=== PATIENT | male | born 1935 | race Caucasian/White ===

== ENCOUNTER 2017-04-17 05:45 | Day surgery (SDC) | payer MEDICARE, OTHER ==
[~2017-04-17] VITALS: Ht 170.2 cm; Wt 65.9 kg
[~2017-04-17 05:45] MED LIST: ADULT LOW DOSE81 MG PO; ALLOPURINOL100 MG PO; ASPIR 8181 MG PO; BROVANA15 MCG/2 M IH; BROVANA15 MCG/2 M INH; BUDESONIDE0.5 MG/2 M IH; BYSTOLIC10 MG PO; CARDIZEM CD120 MG PO; CEFPODOXIME PR200 MG PO; CENTRUM SILVER1 EAC1 PO; CENTRUM SILVER1 EAC3 PO; CLINDAMYCIN HC300 MG PO; COMBIVENT INH14.7 GM; COQ-10100 MG PO; COUMADIN1 MG PO; COUMADIN2 MG PO; COUMADIN3 MG PO; COUMADIN4 MG PO; DALIRESP500 MCG PO; DICLOFENAC SOD100 GM TOP; DILTIAZEM 24HR240 M1 PO; DUONEB 0.5 MG-33 ML IH; FISH OIL 1,0001 EAC3 PO; FISH OIL 1,2001 EAC1; GLIPIZIDE XL10 MG PO; GLIPIZIDE XL5 MG PO; HYLAND LEG CRAMPS PO; HYZAAR 100-12.1 EACH PO; INDOMETHACIN50 MG PO; IPRAT-ALBUT 0.5-3 ML INH; K-TAB ER20 MEQ PO; KLOR-CON 1010 MEQ PO; LASIX20 MG PO; LEVOFLOXACIN500 MG PO; LEVOFLOXACIN750 MG PO; LIPITOR40 MG PO; LOSARTAN POTASS50 MG PO; LOSARTAN-HCTZ1 EAC2 PO; LOVASTATIN10 MG PO; MAGNESIUM400 MG PO; METHYLPREDNISOLO4 M1 PO; MONTELUKAST SOD10 MG PO; NYSTATIN100000 UN1 PO; PERCOCET 5-3251 EACH PO; PLAVIX75 MG PO; POTASSIUM CHLO10 MEQ PO; POTASSIUM CHLO20 ME2 PO; PRAVACHOL40 MG PO; PREDNISONE20 MG PO; PROAIR RESPICL90 MCG INH; PULMICORT0.5 MG/2 M INH; PULMICORT1 MG/2 ML INH; RANITIDINE HCL150 MG PO; SINGULAIR10 MG PO; TORSEMIDE5 MG PO; VITAMIN D2000 UNIT PO; VITAMIN E400 UNI1 PO; ZOFRAN ODT4 MG SL; ZYRTEC10 M3 PO
--- NOTE | 2017-04-17 07:40 | NUR ---
MD ARRIVED TO UNIT. MD CONSULTED ABOUT ABSENCE OF NASAL SPRAY AND ABX ORDERS. MD GAVE VERBAL ORDER FOR 1GM ANCEF AND OXYMETAZOLINE NASAL SPRAY Q 15 MIN X3 TO BE STARTED NOW. ORDER PLACED IN [facility], PHARMACY CALLED TO VERIFY.
--- NOTE | 2017-04-17 08:27 | NUR ---
04/17/17 0827 Negra Pham REPORT FROM [employer]PA[employer].
--- NOTE | 2017-04-17 09:10 | NUR ---
PT RETURNED FROM PACU. REPORTING 0/10 PAIN. TOLERATING PO FLUIDS AND MAITAING O2 STAT ABOVE 95% ON ROOM AIR. AT BEDSIDE. BED RAILS UP AND CALL LIGHT WITH IN REACH.
--- NOTE | 2017-04-17 10:11 | NUR ---
PT STEADY ON FEET WITH ONE PERSON STAND BY ASSIST. PT TOLERATING PO FLUIDS AND FOOD. PT DRESSES SELF AND VOIDING WITHOUT ISSUE. DISCHARGE INSTRUCTIONS REVIEWED WITH PT AND . PT AND VERBALIZE UNDERSTANDING OF INSTRUCTIONS. QUESTIONS ANSWERED.
--- NOTE | 2017-04-17 15:10 | OR ---
[facility] [address], [place] [address] Signed DATE OF OPERATION: 04/17/2017 SURGEON: Parveen Valentine MD PREOPERATIVE DIAGNOSIS: Nasal septal perforation with right nasal polyp. POSTOPERATIVE DIAGNOSIS: Nasal septal perforation with right nasal polyp. PROCEDURE: Excision of right intranasal polyp with the placement of a septal button. ANESTHESIA: General LMA, FABIOLA Eli. PREOPERATIVE HISTORY: Mr. Miranda is an 82-year-old man with a long history of epistaxis. He has a large anterior nasal septal perforation with crusting, fresh blood, which appears to be the site of his epistaxis exam in the office endoscopically and CAT scan has shown a right middle meatal polyp. He was taken to the operating room for the above-mentioned procedures. OPERATIVE PROCEDURE AND FINDINGS: After informed consent, the patient was taken to the operating room, placed in the supine position where general LMA anesthesia was induced. The patient and procedure were verified. The patient received preoperative intranasal oxymetazoline and intravenous Ancef. Headlight speculum exam of the nasal cavity showed a fairly large anterior nasal septal perforation with crusting, dried blood in the edges. Perforation measured about 2 cm. The right middle meatus had polypoid changes. A Niyah was used to remove the polyps, which basically were attached to the anterior edge of the middle turbinate. Preop CAT scan was reviewed throughout. There was no other sinus or intranasal pathology identified. The specimen was sent to pathology in formalin. Minimal bleeding stopped afterwards. No packing placed. A septal button was then trimmed, placed in the perforation with good closure and good coverage. Reinspection showed no bleeding points. The pharynx was suctioned clear of blood and secretions. The patient was awakened, extubated, transported to recovery room in good condition. No complications. Electronically Signed By: PARVEEN VALENTINE MD 04/17/17 1510 PATIENT NAME: ONEIDA MIRANDA OPERATIVE REPORT DATE OF : 35 PHYSICIAN: PARVEEN VALENTINE MD REPORT #: [id number] REPORT IS CONFIDENTIAL AND NOT TO BE RELEASED WITHOUT AUTHORIZATION [address], [place] [address] Signed BLOOD LOSS: Minimal. SPECIMEN: Right intranasal polyp to pathology. PACKING: None. DRAINS: None. Parveen Valentine MD GC/MODL /[id number] Electronically Signed By: PARVEEN VALENTINE MD 04/17/17 1510 PATIENT NAME: ONEIDA MIRANDAN OPERATIVE REPORT DATE OF : 35 PHYSICIAN: PARVEEN VALENTINE MD REPORT #: [id number] REPORT IS CONFIDENTIAL AND NOT TO BE RELEASED WITHOUT AUTHORIZATION
== END 2017-04-17 10:20 | disposition home or self-care (01) ==
LOC: OPS 05:45 → DS 05:45 → OPS 06:45
PROVIDERS: Otolaryngology
PROC: 09HK0YZ Insertion of Other Device into Nasal Mucosa and Soft Tissue, Open Approach (ICD-10-PCS; 2017-04-17)
PROC: 09BM0ZZ Excision of Nasal Septum, Open Approach (ICD-10-PCS; principal; 2017-04-17 06:45)
DX: J33.0 Polyp of nasal cavity (principal); J34.89 Other specified disorders of nose and nasal sinuses
CPT/HCPCS: 00160; J0690; J1100; J1885; J2250; J2405; J2704; J3010; J7120

== ENCOUNTER 2017-09-25 04:58 | Inpatient (IN) | payer MEDICARE, OTHER ==
[~2017-09-25] VITALS: Ht 170.2 cm; Wt 64.2 kg
--- OUTSIDE RECORDS SUMMARY | ~2017-09-25 | XMS | Clinical Summary ---
Demographics + + + | Address | [address] | | | [place] [address] | + + + | Home Phone | | + + + | Preferred Language | Unknown | + + + | Marital Status | | + + + | Episcopalian Affiliation | Unknown | + + + | Race | Unknown | + + + | Ethnic Group | Unknown | + + + Author + + + | Author | [facility] | | | and [place] | + + + | Organization | [facility] | | | and [place] | + [...] Team Providers + +------+ + | Care Front Office Medical Assistant Name | Role | Phone | + [...] | | | + + +-------+---------+------+------+-------+ | [place]-3 Fatty | Take 1,000 mg by | [...] + + + + | Overview: CARLOSU [id number] Decision | + + +---------+---+ | C [...]
--- OUTSIDE RECORDS SUMMARY | ~2017-09-25 | XMS | Encounter Summary ---
Demographics + + + | Address | [address] | | | [place] [address] | + + + | Home Phone | | + + + | Preferred Language | Unknown | + + + | Marital Status | | + + + | Anglican Affiliation | 1013 | + + + | Race | Unknown | + + + | Ethnic Group | Unknown | + + + Author + + + | Author | [facility] | + + + | Organization | [facility] | + + + | Address | Unknown | + + + | Phone | Unavailable | + + + Support + + + + + | Name | Relationship | Address | Phone | + + + + + | Nestor Miranda | ECON | [address] | | | | | [place] | | | | | [address] | | + + + + + Care Team Providers + +------+ + | Care Taxicab Dispatcher Name | Role | Phone | + [...] + | 09/07/ | Refill | BRYAN Josephine | Jerman Geronimo, | Medication Refill | | 2018 | | Cardiology [place] | [address] | | | | | [address] | [place], | | | | | [facility] [address] | [place] [address] | | | | | [place] [address] | [phone] | | | | | [phone] | | | +--------+--------+ + + + [...] 2017 | Visit | | MD [address] | | | | | | [place], | | | | | | [place] [address] | | | | | | [phone] | | | | | | | | +--------+---------+ + + + as of this encounter Visit Diagnoses Not on filein this encounter"
--- OUTSIDE RECORDS SUMMARY | ~2017-09-25 | XMS | Encounter Summary ---
Demographics + + + | Address | [address] | | | [place] [address] | + + + | Home Phone | | + + + | Preferred Language | Unknown | + + + | Marital Status | | + + + | Adventist Affiliation | 1013 | + + + | Race | Unknown | + + + | Ethnic Group | Unknown | + + + Author + + + | Author | [facility] | + + + | Organization | [facility] | + + + | Address | Unknown | + + + | Phone | Unavailable | + + + Support + + + + + | Name | Relationship | Address | Phone | + + + + + | Nestor Miranda | ECON | [address] | | | | | [place] | | | | | [address] | | + + + + + Care Team Providers + +------+ + | Care Assembler Flexible Leads Name | Role | Phone | + [...] | | 2018 | on Only | [facility] | YAM[place]A | Maicol) | | | | [address] | | | | | | [place], [place] | | | | | | [address] | | | | | | [phone] | | | +--------+ + + + [...] | | | | | | [place] [address] | | | | | | [phone] | | | | | | | [...] + + | Blood | [facility] [address] [place] [address] | | | [address] | + + + Digoxin (07/24/2017 7:37 AM) + +---------+ + | Component | Value | Ref Range | + +---------+ + | DIGOXIN LEVEL | 0.2 (A) | 0.8 - 2.0 | + +---------+ + + + + | Specimen | Performing Laboratory | + + + | Blood | [facility] [address] [place] [address] | | | [address] | + + + TSH (07/24/2017 7:37 AM) + +-------+ + | Component | Value | Ref Range | + +-------+ + | TSH | 2.39 | 0.270 - 4.20 uIU/mL | + +-------+ + + + + | Specimen | Performing Laboratory | + + + | Blood | [facility] [address] [place] [address] | | | [address] | + + + Comprehensive metabolic panel [...] + + | Blood | [facility] [address] [place], [place] [address] | | | [address] | + + + Lipid panel (07/24/2017 [...] | + + + | Blood | [facility] [address] [place], [place] [address] | | | [address] | + + + in this encounter Visit Diagnoses Not on filein this encounter"
--- OUTSIDE RECORDS SUMMARY | ~2017-09-25 | XMS | Encounter Summary ---
Demographics + + + | Address | [address] | | | [place] [address] | + + + | Home Phone | | + + + | Preferred Language | Unknown | + + + | Marital Status | | + + + | Mosque Affiliation | 1013 | + + + | Race | Unknown | + + + | Ethnic Group | Unknown | + + + Author + + + | Author | [facility] | + + + | Organization | [facility] | + + + | Address | Unknown | + + + | Phone | Unavailable | + + + Support + + + + + | Name | Relationship | Address | Phone | + + + + + | Nestor Miranda | ECON | [address] | | | | | [place] | | | | | [address] | | + + + + + Care Team Providers + +------+ + | Care Homeowner Association Manager Name | Role | Phone | [...] | 2018 | on Only | [facility]iology [place] | [address] | | | | | [address] | | | | | | [place] | | | | | | [address] | | | | | | [phone] | | | +--------+ + + + [...] [place], | | | | | | [place] [address] | | | | | | [phone] | | | | | | | | +--------+---------+ + + + as of this encounter Visit Diagnoses Not on filein this encounter"
--- OUTSIDE RECORDS SUMMARY | ~2017-09-25 | XMS | Clinical Summary ---
Demographics + + + | Address | [address] | | | [place] [address] | + + + | Home Phone | | + + + | Preferred Language | Unknown | + + + | Marital Status | | + + + | Hindu Affiliation | Unknown | + + + | Race | White | + + + | Ethnic Group | Not or | + + + Author + + + | Author | [facility] | + + + | Organization | [facility] | + + + | Address | Unknown | + + + | Phone | Unavailable | + + + Care Team Providers + +------+ + | Care Senior Oracle Applications Developer Name | Role | Phone | + +------+ + PP | Unavailable | + +------+ + Source Comments JO[facility] is [facility] InPatient.[facility] Allergies Not on File Current Medications [...]
--- OUTSIDE RECORDS SUMMARY | ~2017-09-25 | XMS | Encounter Summary ---
Demographics + + + | Address | [address] | | | [place] [address] | + + + | Home Phone | | + + + | Preferred Language | Unknown | + + + | Marital Status | | + + + | Christian Affiliation | 1013 | + + + | Race | Unknown | + + + | Ethnic Group | Unknown | + + + Author + + + | Author | [id number] | + + + | Organization | [id number] | + + + | Address | Unknown | + + + | Phone | Unavailable | + + + Support + + + + + | Name | Relationship | Address | Phone | + + + + + | Nestor Miranda | ECON | [address] | | | | | [place] | | | | | [address] | | + + + + + Care Team Providers + +------+ + | Care Volunteer Manager Name | Role | Phone | [...] MD Rika [address] | [place] | | | | [address] | [place], | [place] | | | | [address] | [place] [address] | heart with stable | | | | [place] [address] | [phone] | angina pectoris | | | | [phone] | | ([facility]LY [facility]) (Primary Dx); | | | | | | S/P PTCA | | | | | | (percutaneous | | | | | | transluminal | | | | | | coronary | | | | | | angioplasty); | | | | | | 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 | | | | | | ([facility]); Chronic | | | | | | atrial fibrillation | | | | | | ([facility]); PVD | | | | | | (peripheral vascular | | | | | | disease) ([facility]); | | | | | | Moderate [...] time. I will see him back in [address] [place] [address] for follow-up. 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 He has [...] rate. There were rare PVCs -- Echo (09/27/15-[facility]): moderate global hypokinesis, EF35-40%, marked LAE [...] noted on his abdominal CT scan at [place]. GENITOURINARY: Mild chronic kidney disease, with evidence [...] CHADS2 VASc 4 CHF (congestive heart failure) ([facility]) Chronic kidney disease Mild, although renal cortical thinning is noted on an abdominal CT COPD (chronic obstructive pulmonary disease) ([facility]) Asthma and emphysema Coronary artery disease multivessel [...] today for follow-up. Coronary artery disease [place] heart with stable angina pectoris (HCC) S/P PTCA (percutaneous transluminal coronary angioplasty) Dilated cardiomyopathy (HCC) Chronic atrial fibrillation ([facility]) PVD (peripheral vascular disease) ([facility]) Moderate to severe mitral regurgitation Epistaxis, recurrent [...] | | | | | | [place] [address] | | | | | | [phone] | | | | | | | | +--------+---------+ + + + as of this encounter Results ECHO outside interpretation standard (08/03/2017 10:52 AM) + + + | Specimen | Performing Laboratory | + + + | | [address] [address] | + + + + + | [...] from the previous | | study. 4. Bsylzwrg-bu-hrgicb mitral regurgitation is present, predominately an | [...] enlarged, unchanged from the previous study. 4. Leyrmpbi-fi-ogjsex | | mitral regurgitation is present, predominately [...] to be m | | Mitral Valve: yasospc-cw-xsuejn mitral regurgitation, predominately an eccentric, | | [...] mmHg TR Vmax: | | 2.80 m/s Pickle Sorter: Authenticated by: Jerman Geronimo Report Date/Time: | | 08-03-2017 11:33:16 | + + + + | Procedure Note | + + | Ross Newell Results In - 08/03/2017 11:40 AM PST Patient Name: Phill Miranda of | | : 5Accession: [id number] Physician: Jerman M. | | Lehr INDICATIONS [...] | enlarged, unchanged from the previous study.4. Hvtdipmk-ot-jwstok mitral regurgitation | | is present, predominately [...] to be m Mitral | | Valve: tdkucct-hm-fnkbvk mitral regurgitation, predominately an eccentric, posteriorly | [...] cmLVPWd: 0.95 | | cmLVOT Area: 3.71 eg0GSFW Diam: 2.17 cm%FS: 17.23 %EF(Teich): 35.78 | [...] (A-L): 43.22 ml/m2LAAs A2C: 23.19 | | tb3SYTXV A-L A2C: 80.31 mlLALs A2C: 5.68 cmLAAs A4C: 21.60 wq6JAUNJ A-L A4C: | | 70.83 mlLALs A4C: 5.59 cmRAAs: 22.56 qm2FBIMR A-L: 73.39 mlRAESV MOD: 70.66 | | mlRALs: 5.88 cmTAPSE: 2.28 cmAV maxP.18 mmHgAV meanP.07 mmHgAV Vmax: | | 1.23 m/Judson Vmean: 0.82 m/Judson VTI: 19.35 cmAVA Vmax: 1.98 cm2AVA (VTI): 1.93 | | rt7CXTW Vmax: 0.00 cm2/m2AVAI (VTI): 0.00 cm2/m2LVOT maxP.75 mmHgLVOT meanPG: | | 0.93 mmHgLVSI Dopp: 21.26 ml/m2LVSV Dopp: 37.42 mlLVOT Vmax: 0.66 m/sLVOT Vmean: | | 0.45 m/sLVOT VTI: 10.06 cmMV A Herrera: 0.04 m/sMV DecT: 167.58 msMV E Herrera: 0.77 | | m/sMV E/A Ratio: 18 MV PHT: 48.60 msMVA By PHT: 4.52 it3Xdxqyo e': 0.06 | | m/sSeptal E/e': 12.48 [...] unchanged from the previous study.4. | | Etmrmxqz-og-jtzfec mitral regurgitation is present, predominately an eccentric, [...] |TR Vmax: 2.80 m/s | | | |Pickle Sorter: | |Authenticated by: Jerman Geronimo | |Report [...] unchanged from the previous study. | |4. Rgabghzq-mf-vkgsge mitral regurgitation is present, predominately an eccentric, posterio rly directed jet, unchanged from the previous study. | |5. There is borderline pulmonary hypertension, unchanged from the previous study. | + + in this encounter Visit Diagnoses + + | Diagnosis | + + | Coronary artery disease of [place] artery [place] heart with stable angina pectoris | | [...]
--- OUTSIDE RECORDS SUMMARY | ~2017-09-25 | XMS | Encounter Summary ---
Demographics + + + | Address | [address] | | | [place] [address] | + + + | Home Phone | | + + + | Preferred Language | Unknown | + + + | Marital Status | | + + + | Samaritan Affiliation | 1013 | + + + | Race | Unknown | + + + | Ethnic Group | Unknown | + + + Author + + + | Author | [facility] | + + + | Organization | [facility] | + + + | Address | Unknown | + + + | Phone | Unavailable | + + + Support + + + + + | Name | Relationship | Address | Phone | + + + + + | Nestor Miranda | ECON | [address] | | | | | [place] | | | | | [address] | | + + + + + Care Team Providers + +------+ + | Care Screening Representative Name | Role | Phone | + +------+ + | Aaron Schawrz DO | PCP | | + +------+ + Reason for Visit +--------+ + | Reason | Comments | +--------+ + | Other | Patients home diary, medications, bp | +--------+ + Encounter Details +--------+ + + + + | Date | Type | Department | Care Team | Description | +--------+ + + + + | 08/21/ | Documentati | [facility] [place] | Quita Hernandez, | Other (Patients home | | 2018 | on Only | Cardiology Deputy | [facility] | diary, medications, | | | | [address] | | bp) | | | | [place] | | | | | | [address] | | | | | | [phone] | | | +--------+ + + + [...] | | | | | | [place] [address] | | | | | | [phone] | | | | | | | | +--------+---------+ + + + as of this encounter Visit Diagnoses Not on filein this encounter"
--- OUTSIDE RECORDS SUMMARY | ~2017-09-25 | XMS | Encounter Summary ---
Demographics + + + | Address | [address] | | | [place] [address] | + + + | Home Phone [...] + | Author | [facility] | + + + | Organization | [facility] | + + + | Address | Unknown | + + + | Phone | Unavailable | + + + Support + + + + + | Name | Relationship | Address | Phone | + + + + + | Nestor Miranda | ECON | [address] | | | | | [place] | | | | | [address] | | + + + + + Care Team Providers + +------+ + | Care Net Ui Developer Name | Role | Phone | [...] | NIYAH [address] | disease [place] | | | | [address] | Nadine Perez F | artery of [place] | | | | [address] | [place] [address] | heart with stable | | | | [place] [address] | [phone] | angina pectoris | | | | [phone] | | ([facility]) (Primary Dx); | | | | | | S/P PTCA | | | | | | (percutaneous | | | | | | transluminal | | | | | | coronary | | | | | | angioplasty); | | | | | | 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 | | | | | | ([facility]); Chronic | | | | | | atrial fibrillation | | | | | | ([facility]); Moderate to | | | | | | severe mitral | | | | | | regurgitation; | | | | | | 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 ([facility]); PVD | | | | | | (peripheral vascular | | | | | | disease) ([facility]); | | | | | | Chronic obstructive | | | | | | pulmonary disease, | | | | | | unspecified COPD | | | | | | type ([facility]) | +--------+---------+ + + + Social History [...] on warfarin for his atrial fibrillation with [id number] VASC of 4 and Plavix for sten [...] He reports he continues to walk in [employer] 3-4 times per week and now able [...] illicit drug use. Exercises with walking in [employer] 2-3 time s per week, can go 2-3 times around the store and tolerates. . Lives in [place]. Outpatient Medications Prior to Visit Medication Sig [...] No results found for: METF, NMETFX, TFNMFX, JPYOYFB30BBM, BIQNLI52VWV, TOTEPI IMAGING /PROCEDURES ; Last Lexiscan Cardiolite [...] Peak/mean gradient across the valve is 6.18mmHg/3.08mmHg. [facility] ral valve normal, stable moderate [...] HTN, RVSP 36.9 mm Hg Echo (09/27/15-[facility]): moderate global hypokinesis, EF 35-40%, [...] Dr. Harman. 1. Coronary artery disease of [place] artery [place] heart with stable angina pectoris ([facility]) [...] past surgical history. Problem list. NIYAH [facility] 08/21/2017in this encounter Plan of Treatment +--------+---------+ + + + | Date | Type | Specialty | Care Team | Description | +--------+---------+ + + + | 10/23/ | Office | Cardiology | Jerman Geronimo, | | | 2017 | Visit | | MD [address] | | | | | | [place], | | | | | | [place] [address] | | | | | | [phone] | | | | | | | | +--------+---------+ + + + + +--------+ + + | Name | Priori | Associated Diagnoses | Order Schedule | | | ty | | | + +--------+ + + | Comprehensive metabolic panel | Routin | Coronary artery | Expected: | | | e | disease of [place] | 10/08/2017, Expires: | | | | artery [place] | 08/20/2018 | | | | heart with stable | | | | | angina pectoris | | | | | ([facility]) S/P PTCA | | | | | (percutaneous | | | | | transluminal | | | | | coronary | | | | | angioplasty) | | | | | Dilated | | | | | cardiomyopathy ([facility]) | | | | | Chronic atrial | | | | | fibrillation ([facility]) | | | | | 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 | | | | | failure ([facility]) Type | | | | | 2 diabetes mellitus | | | | | without | | | | | complication, | | | | | without long-term | | | | | current use of | | | | | insulin ([facility]) | | + +--------+ + + | Lipid panel | Routin | Coronary artery | Expected: | | | e | disease of [place] | 10/08/2017, Expires: | | | | artery [place] | 08/20/2018 | | | | heart with stable | | | | | angina pectoris | | | | | ([facility]) S/P PTCA | | | | | [...] + + + + | Calculated R [place] | 94 | degrees | + + + + | Calculated T [place] | -66 | degrees | + + + + | Diagnosis | Please refer to Providers office visit note | | | | for Providers Interpretation.Confirmed by | | | | ICA Michie Read Only, NIKOLAS Mccoy ([id number]), | | | | editor at large Johnson Kimble ([id number]) on 08/20/2017 | | | | 10:36:28 AM | | + + + + + + + | Specimen | Performing Laboratory | + + + | | [facility] [place] [address] | + + + in this encounter Visit Diagnoses + + | Diagnosis | + + | Coronary artery disease of [place] artery [place] heart with stable angina pectoris | | [...]
--- OUTSIDE RECORDS SUMMARY | ~2017-09-25 | XMS | Encounter Summary ---
Demographics + + + | Address | [address] | | | [place] [address] | + + + | Home Phone | | + + + | Preferred Language | Unknown | + + + | Marital Status | | + + + | Judaism Affiliation | 1013 | + + + | Race | Unknown | + + + | Ethnic Group | Unknown | + + + Author + + + | Author | [facility] [employer] [facility] | + + + | Organization | [facility] | + + + | Address | Unknown | + + + | Phone | Unavailable | + + + Support + + + + + | Name | Relationship | Address | Phone | + + + + + | Nestor Miranda | ECON | [address] | | | | | [place] | | | | | [address] | | + + + + + Care Team Providers + +------+ + | Care Crimping Machine Operator Name | Role | Phone [...] | | | | | | [place] | | | | | | [address] | | | | | | [phone] | | | +--------+ + + + [...] [place], | | | | | | [place] [address] | | | | | | [phone] | | | | | | | | +--------+---------+ + + + as of this encounter Visit Diagnoses Not on filein this encounter"
--- OUTSIDE RECORDS SUMMARY | ~2017-09-25 | XMS | Encounter Summary ---
Demographics + + + | Address | [address] | | | [place] [address] | + + + | Home Phone | | + + + | Preferred Language | Unknown | + + + | Marital Status | | + + + | Cheondoism Affiliation | 1013 | + + + | Race | Unknown | + + + | Ethnic Group | Unknown | + + + Author + + + | Author | [facility] | + + + | Organization | [facility] | + + + | Address | Unknown | + + + | Phone | Unavailable | + + + Support + + + + + | Name | Relationship | Address | Phone | + + + + + | Nestor Miranda | ECON | [address] | | | | | [place] | | | | | [address] | | + + + + + Care Team Providers + +------+ + | Care Shake Splitter Name | Role | Phone | + [...] Maldonado | | | | | Miah [facility] [address] | [place] [address] | | | | | [place] [address] | [phone] | | | | | [phone] | | | +--------+ + + + [...] | | | | | | [place] [address] | | | | | | [phone] | | | | | | | | +--------+---------+ + + + as of this encounter Visit Diagnoses Not on filein this encounter"
--- OUTSIDE RECORDS SUMMARY | ~2017-09-25 | XMS | Encounter Summary ---
Demographics + + + | Address | [address] | | | [place] [address] | + + + | Home Phone | | + + + | Preferred Language | Unknown | + + + | Marital Status | | + + + | Hindu Affiliation | 1013 | + + + | Race | Unknown | + + + | Ethnic Group | Unknown | + + + Author + + + | Author | [facility] | + + + | Organization | [facility] | + + + | Address | Unknown | + + + | Phone | Unavailable | + + + Support + + + + + | Name | Relationship | Address | Phone | + + + + + | Nestor Miranda | ECON | [address] | | | | | [place] | | | | | [address] | | + + + + + Care Team Providers + +------+ + | Care Human Resources Coordinator Name | Role | Phone | + [...] | Procedure | ECHO | MD [address]ika [address] | cardiomyopathy | | | | | [place], | ([facility]); Chronic | | | | | [place] [address] | atrial fibrillation | | | | | [phone] | ([facility]); Moderate to | | | | | [...] [place], | | | | | | [place] [address] | | | | | | [phone] | | | | | | | [...] Laboratory | + + + | | [address] [address] | + + + + + | [...] from the previous | | study. 4. Qbksbjxv-wb-eddiqg mitral regurgitation is present, predominately an | [...] enlarged, unchanged from the previous study. 4. Elbunzzp-fi-zjlrzi | | mitral regurgitation is present, predominately [...] to be m | | Mitral Valve: hzerhnt-uh-rncvkq mitral regurgitation, predominately an eccentric, | | [...] mmHg TR Vmax: | | 2.80 m/s Claims Vice President: Authenticated by: Jerman Geronimo Report Date/Time: | | 08-03-2017 11:33:16 | + + + + | Procedure Note | + + | Reece, Rad Results In - 08/03/2017 11:40 AM PST Patient Name: Phill Miranda of | | : 5Accession: [id number] Physician: Jerman Prasad | | Lehr INDICATIONS [...] | enlarged, unchanged from the previous study.4. Oszgueah-mm-pjtpot mitral regurgitation | | is present, predominately [...] to be m Mitral | | Valve: pojfxyk-ji-rwpdav mitral regurgitation, predominately an eccentric, posteriorly | [...] cmLVPWd: 0.95 | | cmLVOT Area: 3.71 mp1ZXZK Diam: 2.17 cm%FS: 17.23 %EF(Teich): 35.78 | [...] (A-L): 43.22 ml/m2LAAs A2C: 23.19 | | un2DYHGD A-L A2C: 80.31 mlLALs A2C: 5.68 cmLAAs A4C: 21.60 ed4MYFTB A-L A4C: | | 70.83 mlLALs A4C: 5.59 cmRAAs: 22.56 gi5DRCSD A-L: 73.39 mlRAESV MOD: 70.66 | | mlRALs: 5.88 cmTAPSE: 2.28 cmAV maxP.18 mmHgAV meanP.07 mmHgAV Vmax: | | 1.23 m/Judson Vmean: 0.82 m/Judson VTI: 19.35 cmAVA Vmax: 1.98 cm2AVA (VTI): 1.93 | | ev9RUDA Vmax: 0.00 cm2/m2AVAI (VTI): 0.00 cm2/m2LVOT maxP.75 mmHgLVOT meanPG: | | 0.93 mmHgLVSI Dopp: 21.26 ml/m2LVSV Dopp: 37.42 mlLVOT Vmax: 0.66 m/sLVOT Vmean: | | 0.45 m/sLVOT VTI: 10.06 cmMV A Herrera: 0.04 m/sMV DecT: 167.58 msMV E Herrera: 0.77 | | m/sMV E/A Ratio: 18 MV PHT: 48.60 msMVA By PHT: 4.52 df4Kpaqdg e': 0.06 | | m/sSeptal E/e': 12.48 [...] unchanged from the previous study.4. | | Rxgwyamv-xm-jrrrii mitral regurgitation is present, predominately an eccentric, [...] |TR Vmax: 2.80 m/s | | | |Claims Vice President: | |Authenticated by: Jerman Geronimo | |Report [...] unchanged from the previous study. | |4. Eugplbhf-eu-ebdvuh mitral regurgitation is present, predominately an eccentric, [...]
--- OUTSIDE RECORDS SUMMARY | ~2017-09-25 | XMS | Encounter Summary ---
Demographics + + + | Address | [address] | | | [place] [address] | + + + | Home Phone [...] | Author | [facility] [employer] [facility] | + + + | Organization | [facility] [employer] [facility] | + + + | Address | Unknown | + + + | Phone | Unavailable | + + + Support + + + + + | Name | Relationship | Address | Phone | + + + + + | Nestor Miranda | ECON | [address] | | | | | [place] | | | | | [address] | | + + + + + Care Team Providers + +------+ + | Care Discharge Specialist Name | Role | Phone | [...] | | | [place] | [place] [address] | | | | | [address] | [phone] | | | | | [phone] | | | +--------+ + + + [...] [place], | | | | | | [place] [address] | | | | | | [phone] | | | | | | | | +--------+---------+ + + + as of this encounter Visit Diagnoses Not on filein this encounter"
--- OUTSIDE RECORDS SUMMARY | ~2017-09-25 | XMS | Encounter Summary ---
Demographics + + + | Address | [address] | | | [place] [address] | + + + | Home Phone | | + + + | Preferred Language | Unknown | + + + | Marital Status | | + + + | Hoahaoism Affiliation | 1013 | + + + | Race | Unknown | + + + | Ethnic Group | Unknown | + + + Author + + + | Author | [facility] | + + + | Organization | [facility] | + + + | Address | Unknown | + + + | Phone | Unavailable | + + + Support + + + + + | Name | Relationship | Address | Phone | + + + + + | Nestor Miranda | ECON | [address] | | | | | [place] | | | | | [address] | | + + + + + Care Team Providers + +------+ + | Care Herbicide Sprayer Name | Role | Phone | + +------+ + | Aaron Schwarz DO | PCP | | + +------+ + Encounter Details +--------+ + + + + | Date | Type | Department | Care Team | Description | +--------+ + + + + | 07/30/ | Telephone | [facility] Shandon | Krystle Baez MA | | | 2017 | | Cardiology [place] | | | | | | [address] | | | | | | [place] | | | | | | [address] | | | | | | [phone] | | | +--------+ + + + [...] | | | | | | [place] [address] | | | | | | [phone] | | | | | | | | +--------+---------+ + + + as of this encounter Visit Diagnoses Not on filein this encounter"
--- OUTSIDE RECORDS SUMMARY | ~2017-09-25 | XMS | Encounter Summary ---
Demographics + + + | Address | [address] | | | [place] [address] | + + + | Home Phone [...] + | Author | [facility] [employer] [facility] | + + + | Organization | [facility] [facility] | + + + | Address | Unknown | + + + | Phone | Unavailable | + + + Support + + + + + | Name | Relationship | Address | Phone | + + + + + | eNstor Miranda | ECON | [address] | | | | | [place] | | | | | [address] | | + + + + + Care Team Providers + +------+ + | Care Leadership Recruiter Name | Role | Phone | + +------+ + | Aaron Schwarz DO | PCP | | + +------+ + Encounter Details +--------+ + + + + | Date | Type | Department | Care Team | Description | +--------+ + + + + | 07/19/ | Telephone | [facility]bury | Krystle Baez MA | | | 2017 | | Cardiology [place] | | | | | | [address] | | | | | | [place] | | | | | | [address] | | | | | | [phone] | | | +--------+ + + + [...] | | | | | | [place] [address] | | | | | | [phone] | | | | | | | | +--------+---------+ + + + as of this encounter Visit Diagnoses Not on filein this encounter"
--- OUTSIDE RECORDS SUMMARY | ~2017-09-25 | XMS | Encounter Summary ---
Demographics + + + | Address | [address] | | | [place] [address] | + + + | Home Phone | | + + + | Preferred Language | Unknown | + + + | Marital Status | | + + + | Uatsdin Affiliation | 1013 | + + + | Race | Unknown | + + + | Ethnic Group | Unknown | + + + Author + + + | Author | [facility] | + + + | Organization | [facility] | + + + | Address | Unknown | + + + | Phone | Unavailable | + + + Support + + + + + | Name | Relationship | Address | Phone | + + + + + | Nestor Miranda | ECON | [address] | | | | | [place] | | | | | [address] | | + + + + + Care Team Providers + +------+ + | Care Sampling Theory Teacher Name | Role | Phone | + [...] + | 02// | Office | BRYAN Lanse | Tiffani Reyna | Coronary artery | | 2018 | Visit | [facility] [place] | NIYAH Sarkar [address] | disease of alutiiq | | | | [address] | Nadine Perez F | artery of alutiiq | | | | [address] | [place] [address] | heart with stable | | | | [place] [address] | [phone] | angina pectoris | | | | [phone] | | ([facility]) (Primary Dx); | | | | | | S/P PTCA | | | | | | (percutaneous | | | | | | transluminal | | | | | | coronary | | | | | | angioplasty); | | | | | | 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 | | | | | | ([facility]); Chronic | | | | | | atrial fibrillation | | | | | | ([facility]); Moderate to | | | | | | severe mitral | | | | | | regurgitation; | | | | | | 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 ([facility]); PVD | | | | | | (peripheral vascular | | | | | | disease) ([facility]); | | | | | | Chronic obstructive | | | | | | pulmonary disease, | | | | | | unspecified COPD | | | | | | type ([facility]) | +--------+---------+ + + + [...] you fasting labs to be done at [facility] I have added Digoxin 125 mcg [...] here today for urgent follow-up at the [facility] of Dr. Geronimo for reports of [...] on warfarin for his atrial fibrillation with [id number] VASC of 4 and Plavix for chris [...] reports that he tries to walk in [place] 3-4 times per week and come walk [...] illicit drug use. Exercises with walking in [place] 2-3 time s per week, can go to times around the store and tolerates. . Lives in [place]. Outpatient Medications Prior to Visit Medication Sig [...] No results found for: METF, NMETFX, TFNMFX, [id number], [id number], TOTEPI IMAGING /PROCEDURES ; Last Lexiscan Cardiolite [...] pulmonary HTN, RVSP 36.9 mm Hg Echo (09/27/15-[facility]): moderate global hypokinesis, EF 35-40%, marked LAE, [...] barbara spears. 1. 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 S/P PTCA (percutaneous transluminal coronary angioplasty) 3. Dilated cardiomyopathy (HCC) 4. Chronic atrial fibrillation ([facility]) 5. Moderate to severe mitral regurgitation 6. Chronic combined systolic and diastolic heart failure ([facility]) 7. PVD (peripheral vascular disease) ([facility]) 8. Chronic obstructive pulmonary disease, unspecified COPD type ([facility]) 9. Type 2 diabetes mellitus without complication, without long-term current use of insulin ([facility]) 10. Mixed hyperlipidemia 11. Encounter [...] past surgical history. Problem list. NIYAH Epstein [facility] Cardiology 07/23/2017in this encounter Plan of Treatment +--------+---------+ + + + | Date | Type | Specialty | Care Team | Description | +--------+---------+ + + + | 10/23/ | Office | Cardiology | Jerman Geronimo, | | | 2017 | Visit | | [address] | | | | | | [place], | | | | | | [place] [address] | | | | | | [phone] | | | | | | | | +--------+---------+ + + + + +--------+ + + | Name | Priori | Associated Diagnoses | Order Schedule | | | ty | | | + +--------+ + + | Digoxin level | Routin | Coronary artery | Expected: | | | e | disease of alutiiq | 07/23/2017, Expires: | | | | artery of alutiiq | 07/23/2018 | | | | heart with stable | | | | | angina pectoris | | | | | ([facility]) S/P PTCA | | | | | (percutaneous | | | | | transluminal | | | | | coronary | | | | | angioplasty) | | | | | Chronic atrial | | | | | fibrillation ([facility]) | | | | | Encounter for | | | | | monitoring digoxin | | | | | therapy | | + +--------+ + + | CBC W/Auto Diff (Reflex to | Routin | Chronic atrial | Expected: | | Manual) | e | fibrillation ([facility]) | 07/23/2017, Expires: | | [...] + + + + | Calculated R [place] | 89 | degrees | + + + + | Calculated T [place] | -38 | degrees | + + + + | Diagnosis | Please refer to Providers office visit note | | | | for Providers Interpretation.Confirmed by | | | | [facility] [place] [facility], NIKOLAS Mccoy ([id number]), | | | | editor city Johnson Kimble ([id number]) on 07/23/2017 | | | | 3:38:03 PM | | + + + + + + + | Specimen | Performing Laboratory | + + + | | [facility] [address] [place] [address] | + + + in this encounter Visit Diagnoses + + | Diagnosis | + + | 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 | | (HCC) - Primary | + + | S/P PTCA (percutaneous transluminal coronary angioplasty) | + + | Postsurgical percutaneous transluminal coronary angioplasty status | + + | Dilated cardiomyopathy ([facility]) | + + | Other primary cardiomyopathies | + + | Chronic atrial fibrillation (HCC) | + + | Atrial fibrillation | + + | Moderate to severe mitral regurgitation | + + | Chronic combined systolic and diastolic heart failure (HCC) | + + | Chronic combined systolic and diastolic heart failure | + + | PVD (peripheral vascular disease) ([facility]) | + + | Peripheral [...]
--- OUTSIDE RECORDS SUMMARY | ~2017-09-25 | XMS | Encounter Summary ---
Demographics + + + | Address | [address] | | | [place] [address] | + + + | Home Phone [...] + + + | Author | [facility] | + + + | Organization | [facility] | + + + | Address | Unknown | + + + | Phone | Unavailable | + + + Support + + + + + | Name | Relationship | Address | Phone | + + + + + | Nestor Miranda | ECON | [address] | | | | | [place] | | | | | [address] | | + + + + + Care Team Providers + +------+ + | Care Mortuary Technician Name | Role | Phone | [...] + | 08/13/ | Documentati | BRYAN Sherwood | Quita Hernandez, | Labs Only | | 2018 | on Only | [facility] [place] | PROGRAMMER | ([address]ie | | | | [address] | | 07/24/2017) | | | | [place] | | | | | | [address] | | | | | | [phone] | | | +--------+ + + + [...] | | | | | | [place] [address] | | | | | | [phone] | | | | | | | | +--------+---------+ + + + as of this encounter Visit Diagnoses Not on filein this encounter"
--- OUTSIDE RECORDS SUMMARY | ~2017-09-25 | XMS | Clinical Summary ---
Demographics + + + | Address | [address] | | | [place] [address] | + + + | Home Phone | | + + + | Preferred Language | Unknown | + + + | Marital Status | | + + + | Caodaism Affiliation | 1013 | + + + | Race | Unknown | + + + | Ethnic Group | Unknown | + + + Author + + + | Author | [facility] | + + + | Organization | [facility] | + + + | Address | Unknown | + + + | Phone | Unavailable | + + + Support + + + + + | Name | Relationship | Address | Phone | + + + + + | Nestor Yanez | ECON | [address] | | | | | [place] | | | | | [address] | | + + + + + Care Team Providers + +------+ + | Care Wood Buffer Name | Role | Phone | + [...] | 2018 | on Only | | BELLOWS TESTER | diary, medications, | | | | | | bp) | +--------+ + + + + | 08/20/ | Office | | Tiffani Reyna | 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 | | | | | | ([facility]) (Primary Dx); | | | | | | S/P PTCA | | | | | | (percutaneous | | | | | | transluminal | | | | | | coronary | | | | | | angioplasty); | | | | | | 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 | | | | | | ([facility]); Chronic | | | | | | atrial fibrillation | | | | | | ([facility]); Moderate to | | | | | | severe mitral | | | | | | regurgitation; | | | | | | 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 | | | | | | ([facility]); Chronic | | | | | | atrial fibrillation | | | | | | ([facility]); Moderate to | | | | | | severe mitral | | | | | | regurgitation; | | | | | | 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 ([facility]); PVD | | | | | | (peripheral vascular | | | | | | disease) ([facility]); | | | | | | Chronic obstructive | | | | | | pulmonary disease, | | | | | | unspecified COPD | | | | | | type ([facility]) | +--------+ + + + + | 07/19/ | Telephone | | Krystle Baez MA | | | 2017 | | | | | +--------+ + + + + | 07/10/ | Office | | Jerman Geronimo, | 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 | | MD | 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 | | | | | | ([facility]) (Primary Dx); | | | | | | S/P PTCA | | | | | | (percutaneous | | | | | | transluminal | | | | | | coronary | | | | | | angioplasty); | | | | | | 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 | | | | | | ([facility]); Chronic | | | | | | atrial fibrillation | | | | | | ([facility]); PVD | | | | | | (peripheral vascular | | | | | | disease) ([facility]); | | | | | | [...] [place], | | | | | | [place] [address] | | | | | | [phone] | | | | | | | [...] | | | MEDICAL | | | /[id number] | | on 07/28/2016 by Guerita, | | | PRODUCTS | | | 409 | | MD Kellie | | | | | | | + +-------+-------+ +--------+--------+--------+ | Promus Premier Stent 2.75 X | Stent | Heart | [place] | | | / | | 28-07/28/2016Implanted: Qty: 1 | | | MEDICAL | | | /[id number] | | on 07/28/2016 by Guerita, | [...] + + + + | Calculated R [place] | 94 | degrees | + + + + | Calculated T [place] | -66 | degrees | + + + + | Diagnosis | Please refer to Providers office visit note | | | | for Providers Interpretation.Confirmed by | | | | [facility] [place] [facility], NIKOLAS Mccoy ([id number]), | | | | editorial director Johnson Kimble ([id number]) on 08/20/2017 | | | | 10:36:28 AM | | + + + + + + + | Specimen | Performing Laboratory | + + + | | [facility] [address] [place] [address] | + + + ECHO outside interpretation standard (08/03/2017 10:52 AM) + + + | Specimen | Performing Laboratory | + + + | | [address] [place] [address] | + + + + + | [...] from the previous | | study. 4. Izaaytcd-uk-zaqxyb mitral regurgitation is present, predominately an | [...] enlarged, unchanged from the previous study. 4. Rypzbbpy-cf-vuoitn | | mitral regurgitation is present, predominately [...] to be m | | Mitral Valve: xukosru-mz-jxoolp mitral regurgitation, predominately an eccentric, | | [...] mmHg TR Vmax: | | 2.80 m/s Oceanographic Meteorologist: Authenticated by: Jerman Geronimo Report Date/Time: | | 08-03-2017 11:33:16 | + + + + | Procedure Note | + + | Reece, Rad Results In - 08/03/2017 11:40 AM PST Patient Name: Phill Yanez of | | : 5Accession: [id number] Physician: Jerman Prasad | | [place] INDICATIONS [...] | enlarged, unchanged from the previous study.4. Gnlfcuni-mw-xqjjiz mitral regurgitation | | is present, predominately [...] to be m Mitral | | Valve: nlfzvuu-vj-nsoohz mitral regurgitation, predominately an eccentric, posteriorly | [...] cmLVPWd: 0.95 | | cmLVOT Area: 3.71 xa2FBVC Diam: 2.17 cm%FS: 17.23 %EF(Teich): 35.78 | [...] (A-L): 43.22 ml/m2LAAs A2C: 23.19 | | ul4WMGKO A-L A2C: 80.31 mlLALs A2C: 5.68 cmLAAs A4C: 21.60 bd0FUACM A-L A4C: | | 70.83 mlLALs A4C: 5.59 cmRAAs: 22.56 im5FXGKF A-L: 73.39 mlRAESV MOD: 70.66 | | mlRALs: 5.88 cmTAPSE: 2.28 cmAV maxP.18 mmHgAV meanP.07 mmHgAV Vmax: | | 1.23 m/Judson Vmean: 0.82 m/Judson VTI: 19.35 cmAVA Vmax: 1.98 cm2AVA (VTI): 1.93 | | eg6HKAG Vmax: 0.00 cm2/m2AVAI (VTI): 0.00 cm2/m2LVOT maxP.75 mmHgLVOT meanPG: | | 0.93 mmHgLVSI Dopp: 21.26 ml/m2LVSV Dopp: 37.42 mlLVOT Vmax: 0.66 m/sLVOT Vmean: | | 0.45 m/sLVOT VTI: 10.06 cmMV A Herrera: 0.04 m/sMV DecT: 167.58 msMV E Herrera: 0.77 | | m/sMV E/A Ratio: 18 MV PHT: 48.60 msMVA By PHT: 4.52 wn5Cqpbdc e': 0.06 | | m/sSeptal E/e': 12.48 [...] unchanged from the previous study.4. | | Wnbvpvbv-xe-cqlxhk mitral regurgitation is present, predominately an eccentric, [...] |TR Vmax: 2.80 m/s | | | |Oceanographic Meteorologist: | |Authenticated by: Jerman Geronimo | |Report [...] unchanged from the previous study. | |4. Zwohawiq-py-gzrgzn mitral regurgitation is present, predominately an eccentric, [...] + + | Blood | [facility] [address] [place] [address] | | | [phone] | + + + TSH (07/24/2017 7:37 AM) + +-------+ + | Component | Value | Ref Range | + +-------+ + | TSH | 2.39 | 0.270 - 4.20 uIU/mL | + +-------+ + + + + | Specimen | Performing Laboratory | + + + | Blood | [facility] [address] | | | [address] | + + + Digoxin (07/24/2017 7:37 AM) + +---------+ + | Component | Value | Ref Range | + +---------+ + | DIGOXIN LEVEL | 0.2 (A) | 0.8 - 2.0 | + +---------+ + + + + | Specimen | Performing Laboratory | + + + | Blood | [facility] [address] | | | [address] | + + + Lipid panel (07/24/2017 [...] | + + + | Blood | [facility] [place] | | | [address] | + + + Comprehensive metabolic panel [...] + | Blood | [facility] [address] [place], [facility] [address] [place], [place] | | | [address] | + + + from Last 3 [...] | xxxxxxxxxx | | | [address] | | | RE | | | | [place] [address] | | | IP-OP | | | [...] | | al/Fam | | 1935 | [phone] | [place] | | | ron | | | [birth year] | [phone] | + +--------+ +--------+ + +
[~2017-09-25 04:58] MED LIST changes: +BISOPROLOL-HCT1 EAC2 PO; -K-TAB ER20 MEQ PO; +KLOR-CON M1010 MEQ PO; +LANOXIN125 MCG PO; +VITAMIN D1000 UNIT PO
[2017-09-25] MEDS ORDERED: DALIRESP500 MCG PO (05:09)
[2017-09-25] MEDS ORDERED: TORSEMIDE10 MG PO (05:11)
[2017-09-25] MEDS ORDERED: FISH OIL 1,0001 EAC2 NG (05:12)
[2017-09-25] MEDS ORDERED: COQ1050 MG PO (05:14)
[2017-09-25] MEDS ORDERED: BROVANA15 MCG/2 M INH (05:16)
[2017-09-25] MEDS ORDERED: LEVOFLOXACIN500 MG PO (05:20)
[2017-09-25] MEDS ORDERED: PREDNISONE20 MG PO (05:21)
--- OUTSIDE RECORDS SUMMARY | 2017-09-25 05:28 | XMS | Clinical Summary ---
Demographics + + + | Address | [address] | | | [place] [address] | + + + | Home Phone | | + + + | Preferred Language | Unknown | + + + | Marital Status | | + + + | Spiritism Affiliation | 1013 | + + + | Race | Unknown | + + + | Ethnic Group | Unknown | + + + Author + + + | Author | [facility] | + + + | Organization | [facility] | + + + | Address | Unknown | + + + | Phone | Unavailable | + + + Support + + + + + | Name | Relationship | Address | Phone | + + + + + | Nestor Yanez | ECON | [address] | | | | | [place] | | | | | [address] | | + + + + + Care Team Providers + +------+ + | [employer] Sales Representative Name | Role | Phone | + +------+ + | Aaron Schwarz DO | PP | | + +------+ + Allergies No Known Allergies Current Medications + + +--------+---------+------+------+-------+ | Prescription | Sig. | Disp. | Refills | Star | End | Statu | | | | | | t | Date | s | | | | | | Date | | | + + +--------+---------+------+------+-------+ | allopurinol | Take 100 mg by mouth | | | | | Activ | | (ZYLOPRIM) 100 MG | daily. | | | | | e | | tablet | | | | | | | + + +--------+---------+------+------+-------+ | fish oil-omega-3 | Take 2 g by mouth | | | | | Activ | | fatty acids 1000 MG | daily. | | | | | e | | capsule | | | | | | | + + +--------+---------+------+------+-------+ | losartan (COZAAR) | Take 50 mg by mouth | | | | | Activ | | 50 MG tablet | daily. | | | | | e | + + +--------+---------+------+------+-------+ | glipiZIDE | Take 5 mg by mouth | | | | | Activ | | (GLUCOTROL) 5 MG | daily. | | | | | e | | tablet | | | | | | | + + +--------+---------+------+------+-------+ | Coenzyme Q-10 100 | Take 100 mg by mouth | | | | | Activ | | MG capsule | daily. | | | | | e | + + +--------+---------+------+------+-------+ | Cholecalciferol | Take 1,000 Units by | | | | | Activ | | 2000 UNITS CAPS | mouth. | | | | | e | + + +--------+---------+------+------+-------+ | montelukast | Take 10 mg by mouth | | | | | Activ | | (SINGULAIR) 10 MG | nightly. | | | | | e | | tablet | | | | | | | + + +--------+---------+------+------+-------+ | Multiple | Take 1 tablet by | | | | | Activ | | Vitamins-Minerals | mouth daily. | | | | | e | | (MULTIVITAMIN WITH | | | | | | | | MINERALS) tablet | | | | | | | + + +--------+---------+------+------+-------+ | arformoterol | Take 15 mcg by | | | | | Activ | | (BROVANA) 15 MCG/2ML | nebulization 2 (two) | | | | | e | | NEBU | times daily. | | | | | | + + +--------+---------+------+------+-------+ | roflumilast | Take 500 mcg by | | | | | Activ | | (DALIRESP) 500 MCG | mouth every other | | | | | e | | tablet | day. | | | | | | + + +--------+---------+------+------+-------+ | nitroGLYCERIN | Place 1 tablet under | 90 | 12 | 02/1 | | Activ | | (NITROSTAT) 0.4 MG | the tongue every 5 | tablet | | 1/20 | | e | | SL tablet | (five) minutes as | | | 17 | | | | | needed for Chest | | | | | | | | pain. | | | | | | + + +--------+---------+------+------+-------+ | potassium chloride | Take 1 tablet by | 90 | 11 | 04/1 | | Activ | | (K-DUR) 10 MEQ | mouth 2 (two) times | tablet | | 5/20 | | e | | tablet | daily with meals. | | | 17 | | | + + +--------+---------+------+------+-------+ | warfarin | Take 3 mg by mouth | | | | | Activ | | (COUMADIN) 3 MG | daily. | | | | | e | | tablet | | | | | | | + + +--------+---------+------+------+-------+ | budesonide | Take 0.5 mg by | | | | | Activ | | (PULMICORT) 0.5 | nebulization 2 (two) | | | | | e | | MG/2ML nebulizer | times daily. | | | | | | | suspension | | | | | | | + + +--------+---------+------+------+-------+ | aspirin 81 MG | Take 81 mg by mouth | | | | | Activ | | tablet | daily. Start taking | | | | | e | | | this when you have | | | | | | | | finished current | | | | | | | | Plavix supply | | | | | | + + +--------+---------+------+------+-------+ | | Take 3 mLs by | | | | | Activ | | ipratropium-albutero | nebulization as | | | | | e | | l (DUO-NEB) 0.5-2.5 | needed. | | | | | | | mg/3mL | | | | | | | + + +--------+---------+------+------+-------+ | digoxin (LANOXIN) | Take 1 tablet by | 30 | 11 | 02/0 | 02/0 | Activ | | 0.125 MG tablet | mouth daily. | tablet | | 11/04 | 11/04 | e | | | | | | 18 | 19 | | + + +--------+---------+------+------+-------+ | | Take 1 tablet by | 30 | 11 | 02/1 | /1 | Activ | | bisoprolol-hydrochlo | mouth daily. | tablet | | 20 | 20 | e | | rothiazide (ZIAC) | | | | 18 | 19 | | | 10-6.25 MG per | | | | | | | | tablet | | | | | | | + + +--------+---------+------+------+-------+ | torsemide | Take 1 tablet by | 30 | 11 | 03/0 | | Activ | | (DEMADEX) 10 MG | mouth daily. | tablet | | 20 | | e | | tabletIndications: | | | | 18 | | | | Chronic combined | | | | | | | | systolic and | | | | | | | | diastolic heart | | | | | | | | failure (HCC) | | | | | | | + + +--------+---------+------+------+-------+ | atorvastatin | take 1 tablet by | 30 | 11 | 03/2 | | Activ | | (LIPITOR) 40 MG | mouth once daily | tablet | | 09/04 | | e | | tablet | | | | 18 | | | + + +--------+---------+------+------+-------+ | atorvastatin | Take 1 tablet by | 30 | 11 | 02/ | 03/2 | Disco | | (LIPITOR) 40 MG | mouth daily. | tablet | | 07/07 | 09/04 | ntinu | | tablet | | | | 17 | 18 | ed | + + +--------+---------+------+------+-------+ Active Problems + + + | Problem | Noted Date | + + + | S/P PTCA (percutaneous transluminal coronary angioplasty) | 07/28/2016 | + + + + + | Overview: D1 - 2.25x20 Promus Premier CLIFF; Ramus - 2.75x28 | | Promus Premier CLIFF | + + + + + | Sepsis due to methicillin susceptible Staphylococcus aureus (HCC) | 10/01/2015 | + + + | Bacterial pneumonia | 10/01/2015 | + + + | Chronic atrial fibrillation (HCC) | 10/01/2015 | + + + | Type 2 diabetes mellitus (HCC) | 10/01/2015 | + + + | Head injury | 10/01/2015 | + + + | Chronic combined systolic and diastolic congestive heart failure | 09/30/2015 | | (HCC) | | + + + | Cerebral microvascular disease | 09/30/2015 | + + + | Right lower lobe lung mass | 09/30/2015 | + + + | Chronic obstructive pulmonary disease with acute lower | 09/30/2015 | | respiratory infection (HCC) | | + + + | Atrial fibrillation (HCC) | | + + + + + | Overview: Chronic, CHADS2 VASc 4 | + + + +---+ | Dilated cardiomyopathy (HCC) | | + +---+ | Pulmonary hypertension, secondary | | + +---+ + + | Overview: Mild | + + + +---+ | COPD (chronic obstructive pulmonary disease) | | + +---+ | Moderate mitral regurgitation | | + +---+ | Thrush, oral | | + +---+ | Coronary artery disease | | + +---+ Resolved Problems + + + + | Problem | Noted | Resolved | | | Date | Date | + + + + | Staphylococcus aureus bacteremia with sepsis (HCC) | 10/01/19 | | | | 16 | 6 | + + + + | Acute on chronic renal failure | 10/01/19 | | | | 16 | 6 | + + + + | Hyperosmolality and/or hypernatremia | 09/30/19 | | | | 16 | 6 | + + + + | Hypotension arterial | 09/30/19 | | | | 16 | 6 | + + + + | Pneumonia due to Streptococcus pneumoniae (HCC) | 09/30/19 | | | | 16 | 6 | + + + + Encounters +--------+ + + + + | Date | Type | Specialty | Care Team | Description | +--------+ + + + + | 09/07/ | Refill | | Jerman Geronimo, | Medication Refill | | 2017 | | | MD | | +--------+ + + + + | 08/21/ | Documentati | | Quita Hernandez, | Other (Patients home | | 2018 | on Only | | BREAK UP WORKER | diary, medications, | | | | | | bp) | +--------+ + + + + | 08/20/ | Office | | Tiffani Reyna | 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 | | NIYAH Sarkar | disease of nightm[place] | | | | | | artery of nightm[place] | | | | | | heart with stable | | | | | | angina pectoris | | | | | | ([facility]) (Primary Dx); | | | | | | S/P PTCA | | | | | | (percutaneous | | | | | | transluminal | | | | | | coronary | | | | | | angioplasty); | | | | | | 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 | | | | | | ([facility]); Chronic | | | | | | atrial fibrillation | | | | | | ([facility]); Moderate to | | | | | | severe mitral | | | | | | regurgitation; | | | | | | 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 ([facility]); PVD | | | | | | (peripheral vascular | | | | | | disease) ([facility]); | | | | | | Chronic obstructive | | | | | | pulmonary disease, | | | | | | unspecified COPD | | | | | | type ([facility]) | +--------+ + + + + | 08/13/ | Documentati | | Quita Hernandez, | Labs Only | | 2017 | on Only | | BREAK UP WORKER | (Marjorie Canelo. | | | | | | 07/24/2017) | +--------+ + + + + | 08/06/ | Documentati | | Krystle Baez MA | Other | | 2017 | on Only | | | | +--------+ + + + + | 08/03/ | Ancillary | | Jerman Geronimo, | Dilated | | 2017 | Procedure | | MD | cardiomyopathy | | | | | | ([facility]); Chronic | | | | | | atrial fibrillation | | | | | | ([facility]); Moderate to | | | | | | severe mitral | | | | | | regurgitation | +--------+ + + + + | 07/30/ | Telephone | | Krystle Baez MA | | | 2018 | | | | | +--------+ + + + + | 07/30/ | Orders Only | | Jerman Geronimo, | | | 2018 | | | MD | | +--------+ + + + + | 07/30/ | Telephone | | Tiffani Reyna | | | 2018 | | | NIYAH Sarkar | | +--------+ + + + + | 07/25/ | Documentati | | Liliya Villalta, | Suzanna ( interpath | | 2018 | on Only | | MA | Labs) | +--------+ + + + + | 07/25/ | Documentati | | Clive Olivier Only | | 2018 | on Only | | DADA Carl | | +--------+ + + + + | 07/23/ | Office | | Tiffani Reyna | Coronary artery | | 2018 | Visit | | NIYAH Sarkar | disease of nightmute | | | | | | artery of nightm[place] | | | | | | heart with stable | | | | | | angina pectoris | | | | | | ([facility]) (Primary Dx); | | | | | | S/P PTCA | | | | | | (percutaneous | | | | | | transluminal | | | | | | coronary | | | | | | angioplasty); | | | | | | 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 | | | | | | ([facility]); Chronic | | | | | | atrial fibrillation | | | | | | ([facility]); Moderate to | | | | | | severe mitral | | | | | | regurgitation; | | | | | | 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 ([facility]); PVD | | | | | | (peripheral vascular | | | | | | disease) ([facility]); | | | | | | Chronic obstructive | | | | | | pulmonary disease, | | | | | | unspecified COPD | | | | | | type ([facility]) | +--------+ + + + + | 07/19/ | Telephone | | Krystle Baez MA | | | 2017 | | | | | +--------+ + + + + | 07/10/ | Office | | Jerman Geronimo, | 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 | | MD | disease of nightmute | | | | | | artery of nightm[place] | | | | | | heart with stable | | | | | | angina pectoris | | | | | | ([facility]) (Primary Dx); | | | | | | S/P PTCA | | | | | | (percutaneous | | | | | | transluminal | | | | | | coronary | | | | | | angioplasty); | | | | | | 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 | | | | | | ([facility]); Chronic | | | | | | atrial fibrillation | | | | | | ([facility]); PVD | | | | | | (peripheral vascular | | | | | | disease) ([facility]); | | | | | | Moderate to severe | | | | | | mitral | | | | | | regurgitation; | | | | | | Epistaxis, recurrent | +--------+ + + + + from Last 3 Months Family History + + +------+ + | Medical History | Relation | Name | Comments | + + +------+ + | Coronary Artery | Brother | | | | Disease | | | | + + +------+ + | Coronary Artery | Father | | | | Disease | | | | + + +------+ + | Breast cancer | Mother | | | + + +------+ + | Gastric cancer | Sister | | | + + +------+ + + +------+ + + | Relation | Name | Status | Comments | + +------+ + + | Brother | | | Myocardial infarction | | | | (Age | | | | | 58) | | + +------+ + + | Brother | | | | + +------+ + + | Father | | | Myocardial infarction | | | | (Age | | | | | 54) | | + +------+ + + | Mother | | | Breast cancer | | | | (Age | | | | | 62) | | + +------+ + + | Sister | | | Gastric cancer | + +------+ + + | Sister | | | | + +------+ + + | Son | | Alive | | + +------+ + + | Son | | Alive | | + +------+ + + Social History + + + +--------+ + | Tobacco Use | Types | Packs/Day | Years | Date | | | | | Used | | + + + +--------+ + | Former Smoker | Cigarettes | 2 | 40 | Quit: 09/29/1996 | + + + +--------+ + + +---+---+---+ | Smokeless Tobacco: | | | | | Never Used | | | | + +---+---+---+ + + +---------+ + | Alcohol Use | Drinks/We | oz/Week | Comments | | | ek | | | + + +---------+ + | Yes | 2 | 1.2 | Occasional whiskey | | | Glasses | | | | | of wine | | | + + +---------+ + + + + | Sex Assigned at | Date Recorded | | | | + + + | Not on file | | + + + Last Filed Vital Signs + + + + | Vital Sign | Reading | Time Taken | + + + + | Blood Pressure | 108/50 | 08/20/2017 9:53 AM PST | + + + + | Pulse | 69 | 08/20/2017 9:53 AM PST | + + + + | Temperature | 36.4 C (97.6 F) | 07/29/2016 11:00 AM PST | + + + + | Respiratory Rate | 20 | 08/20/2017 9:53 AM PST | + + + + | Oxygen Saturation | 96% | 08/20/2017 9:53 AM PST | + + + + | Inhaled Oxygen | - | - | | Concentration | | | + + + + | Weight | 66.9 kg (147 lb 8 | 08/20/2017 9:53 AM PST | | | oz) | | + + + + | Height | 170.2 cm (5' 7") | 08/20/2017 9:53 AM PST | + + + + | Body Mass Index | 23.1 | 08/20/2017 9:53 AM PST | + + + + Plan of Treatment +--------+---------+ + + + | Date | Type | Specialty | Care Team | Description | +--------+---------+ + + + | 10/23/ | Office | | Jerman Geronimo, | | | 2018 | Visit | | MD [address] | | | | | | [place], | | | | | | [place] [id number] | | | | | | [phone] | | | | | | | | +--------+---------+ + + + + + + + + | Health Maintenance | Due Date | Last Done | Comments | + + + + + | Diabetic Eye Exam | | | | | | 5 | | | + + + + + | Diabetic Foot Exam | | | | | | 5 | | | + + + + + | Microalbumin | | | | | Screening | 5 | | | + + + + + | Vaccine: | | | | | Dtap/Tdap/Td (1 - | 4 | | | | Tdap) | | | | + + + + + | Vaccine: Zoster (#1) | | | | | | 5 | | | + + + + + | Vaccine: | | | | | Pneumococcal 65+ | 0 | | | | Low/Medium Risk (1 | | | | | of 2 - PCV13) | | | | + + + + + | Hemoglobin A1c | | 10/01/2015 | | | | 6 | | | + + + + + | Vaccine: Influenza | | | | | (Season Ended) | 8 | | | + + + + + Implants + +-------+-------+ +--------+--------+--------+ | Implanted | Type | Area | Manufacture | Device | Expira | Model | | | | | r | | tion | / | | | | | | Identi | Date | Serial | | | | | | fier | | / Lot | + +-------+-------+ +--------+--------+--------+ | Promus Premier Stent 2.25 X | Stent | Heart | [place] | | | / | | 20-07/28/2016Implanted: Qty: 1 | | | MEDICAL | | | [id number] | | on 07/28/2016 by [employer], | | | PRODUCTS | | | 409 | | MD Kellie | | | | | | | + +-------+-------+ +--------+--------+--------+ | Promus Premier Stent 2.75 X | Stent | Heart | [place] | | | / | | 28-07/28/2016Implanted: Qty: 1 | | | MEDICAL | | | /[id number] | | on 07/28/2016 by [employer], | | | PRODUCTS | | | 323 | | MD Kellie | | | | | | | + +-------+-------+ +--------+--------+--------+ Procedures + +--------+ + + + | Procedure Name | Priori | Date/Time | Associated Diagnosis | Comments | | | ty | | | | + +--------+ + + + | ECHO OUTSIDE | Routin | 08/03/2017 | Dilated | Results for this | | INTERPRETATION | e | 10:52 AM | cardiomyopathy (HCC) | procedure are in the | | STANDARD | | PST | Chronic atrial | results section. | | | | | fibrillation (HCC) | | | | | | Moderate to severe | | | | | | mitral regurgitation | | + +--------+ + + + from Last 3 Months Results EKG STANDARD 12 LEAD (08/20/2017 9:56 AM)Only the most recent of 2 results within the time period is included. + + + + | Component | Value | Ref Range | + + + + | Ventricular Rate | 75 | BPM | + + + + | Atrial Rate | 375 | BPM | + + + + | QRS Duration | 86 | ms | + + + + | Q-T Interval | 388 | ms | + + + + | QTC Calculation | 433 | ms | | (Bezet) | | | + + + + | Calculated R [place] | 94 | degrees | + + + + | Calculated T [place] | -66 | degrees | + + + + | Diagnosis | Please refer to Providers office visit note | | | | for Providers Interpretation.Confirmed by | | | | [facility] Read Only, NIKOLAS Mccoy ([id number]), | | | | magazine editor Johnson Kimble ([id number]) on 08/20/2017 | | | | 10:36:28 AM | | + + + + + + + | Specimen | Performing Laboratory | + + + | | [facility] [address] [place] [address] | + + + ECHO outside interpretation standard (08/03/2017 10:52 AM) + + + | Specimen | Performing Laboratory | + + + | | [facility] [place] [address] | + + + + + | Impressions | + + | 1. Overall left ventricular systolic function is moderate-severely impaired with, an | | EF between 30 - 35%, slightly decreased from the previous echocardiographic study, done | | 07/12/16, when it was recorded at 35 - 40%. 2. The right ventricle is normal in size and | | function. 3. The left atrium is moderately enlarged, unchanged from the previous | | study. 4. Mayoeddj-xc-ltedzq mitral regurgitation is present, predominately an | | eccentric, posteriorly directed jet, unchanged from the previous study. 5. There is | | borderline pulmonary hypertension, unchanged from the previous study. | + + + + | Narrative | + + | Patient Name: Nestor Yanez Date of : 1935 | | Performing Physician: Jerman Geronimo | | INDICATIONS | | Cardiomyopathy CONCLUSIONS 1. Overall left ventricular | | systolic function is moderate-severely impaired with, an EF between 30 - 35%, slightly | | decreased from the previous echocardiographic study, done 07/12/16, when it was recorded | | at 35 - 40%. 2. The right ventricle is normal in size and function. 3. The left atrium | | is moderately enlarged, unchanged from the previous study. 4. Kigzvbsb-dq-daxmck | | mitral regurgitation is present, predominately an eccentric, posteriorly directed jet, | | unchanged from the previous study. 5. There is borderline pulmonary hypertension, | | unchanged from the previous study. FINDINGS -------- ECG rhythm: Atrial | | fibrillation. Study: A 2-dimensional transthoracic echocardiogram with m-mode, spectral | | and color flow Doppler was perfomed. Study: This was a technically adequate study. | | Left Ventricle: Overall left ventricular systolic function is moderate-severely impaired | | with, an EF between 30 - 35%, slightly decreased from the prior study, when it was | | recorded at 35 - 40%. Left Ventricle: The left ventricle cavity size is normal. Left | | Ventricle: Left ventricular wall thickness is normal. Left Ventricle: There is | | moderate global hypokinesis of LV contractility. Left Ventricle: Atrial fibrillation | | prevents accurate assessment of diastolic function. Left Ventricle: False tendon | | visualized in the LV apex. Right Ventricle: The right ventricle is normal in size and | | function. Left Atrium: The left atrium is moderately enlarged, not significantly | | changed from the previous exam. Right Atrium: The right atrium is mildly enlarged, not | | significantly changed from the previous exam. Aortic Valve: Aortic valve is trileaflet | | and is mildly thickened. Aortic Valve: There is mild aortic valve sclerosis without | | stenosis, as on 2-D images, the leaflets separate normally, without restriction. | | Aortic Valve: Trace amount of aortic regurgitation. Aortic Valve: The aortic valve | | area by continuity equation is 1.9cm Aortic Valve: The maximum velocity across | | the aortic valve is 1.24m/s Aortic Valve: Peak/mean gradient across the valve is | | 6.18mmHg/3.08mmHg. Mitral Valve: The mitral valve is normal. There appears to be m | | Mitral Valve: gfpnppn-zs-dvdodl mitral regurgitation, predominately an eccentric, | | posteriorly directed jet, unchanged from the previous study. It was not fully | | examined on color Doppler in the apical views, and could therefore not be evaluated | | fully. Mitral Valve: No evidence of MVP Mitral Valve: . Mitral Valve: Mild mitral | | annular calcification present. Tricuspid Valve: The tricuspid valve appears | | structurally normal. Tricuspid Valve: Mild tricuspid regurgitation is present, | | slightly less than what was seen on the previous exam. Tricuspid Valve: There is | | borderline pulmonary hypertension. Tricuspid Valve: The right ventricular systolic | | pressure (pulmonary artery systolic pressure), as measured by Doppler, is 36.37mmHg, | | unchanged from the previous study. Pulmonic Valve: The pulmonic valve is normal. | | Pulmonic Valve: Trace pulmonic regurgitation. Pericardium: There is no pericardial | | effusion. IVC/Hepatic Veins: The IVC is normal size (1.5-2.5cm) and collapses >50% with | | sniff, consistent with central venous pressures of 5-10mmHg. Aorta: The aortic root, | | ascending aorta and aortic arch are normal. Mass: No mass visualized Thrombus: No clot | | visualized Thrombus: No vegetation visualized. Septum: No ASD observed. Septum: No | | VSD observed. MEASUREMENTS Ao asc: 2.76 cm Ao Diam: 3.00 | | cm Ao sinus: 2.[address] junct: 2.47 cm IVC: 1.68 cm LA Diam: 5.56 | | cm LA Major: 5.57 cm EDV(Teich): 124.00 ml IVSd: 0.95 cm LVIDd: | | 5.10 cm LVPWd: 0.95 cm LVOT Area: 3.71 cm2 LVOT Diam: 2.17 cm %FS: | | 17.23 % EF(Teich): 35.78 % ESV(Teich): 79.62 ml LVIDs: 4.22 cm | | SV(Teich): 44.37 ml RA Major: 5.51 cm RV Major: 6.75 cm RVIDd: 2.54 | | cm LVEF MOD A2C: 34.62 % SV MOD A2C: 27.18 ml LVEF MOD A4C: 38.94 % SV | | MOD A4C: 28.82 ml EF Biplane: 36.74 % LVEDV MOD BP: 77.35 ml LVESV MOD | | BP: 48.92 ml LVEDV MOD A2C: 78.52 ml LVLd A2C: 6.95 cm LVEDV MOD A4C: | | 74.01 ml LVLd A4C: 7.17 cm LVESV MOD A2C: 51.34 ml LVLs A2C: 6.41 cm | | LVESV MOD A4C: 45.18 ml LVLs A4C: 6.65 cm LAESV(A-L): 76.06 ml LAESV | | Index (A-L): 43.22 ml/m2 LAAs A2C: 23.19 cm2 LAESV A-L A2C: 80.31 ml LALs | | A2C: 5.68 cm LAAs A4C: 21.60 cm2 LAESV A-L A4C: 70.83 ml LALs A4C: | | 5.59 cm RAAs: 22.56 cm2 RAESV A-L: 73.39 ml RAESV MOD: 70.66 ml | | RALs: 5.88 cm TAPSE: 2.28 cm AV maxP.18 mmHg AV meanP.07 mmHg | | AV Vmax: 1.23 m/s AV Vmean: 0.82 m/s AV VTI: 19.35 cm JUSTIN Vmax: | | 1.98 cm2 JUSTIN (VTI): 1.93 cm2 AVAI Vmax: 0.00 cm2/m2 AVAI (VTI): 0.00 | | cm2/m2 LVOT maxP.75 mmHg LVOT meanP.93 mmHg LVSI Dopp: 21.26 | | ml/m2 LVSV Dopp: 37.42 ml LVOT Vmax: 0.66 m/s LVOT Vmean: 0.45 m/s LVOT | | VTI: 10.06 cm MV A Herrera: 0.04 m/s MV DecT: 167.58 ms MV E Herrera: 0.77 | | m/s MV E/A Ratio: 18 MV PHT: 48.60 ms MVA By PHT: 4.52 cm2 Septal | | e': 0.06 m/s Septal E/e': 12.48 Lateral e': 0.07 m/s Lateral E/e': | | 10.67 RAP: 5 mmHg RVSP: 36.37 mmHg TR maxP.37 mmHg TR Vmax: | | 2.80 m/s Supervisor [employer]: Authenticated by: Jerman Geronimo Report Date/Time: | | 08-03-2017 11:33:16 | + + + + | Procedure Note | + + | Reece, Rad Results In - 08/03/2017 11:40 AM PST Patient Name: Phill Yanez of | | : 5Accession: [id number] Physician: Jerman Prasad | | [place] INDICATIONS | | -CardiomyopathyCONCLUSIONS 1. Overall left ventricular systolic function is | | moderate-severely impaired with, an EF between 30 - 35%, slightly decreased from the | | previous echocardiographic study, done 07/12/16, when it was recorded at 35 - 40%.2. The | | right ventricle is normal in size and function.3. The left atrium is moderately | | enlarged, unchanged from the previous study.4. Ueqmaxym-oa-plmcdz mitral regurgitation | | is present, predominately an eccentric, posteriorly directed jet, unchanged from the | | previous study.5. There is borderline pulmonary hypertension, unchanged from the | | previous study.FINDINGS--------ECG rhythm: Atrial fibrillation.Study: A 2-dimensional | | transthoracic echocardiogram with m-mode, spectral and color flow Doppler was perfomed. | | Study: This was a technically adequate study.Left Ventricle: Overall left ventricular | | systolic function is moderate-severely impaired with, an EF between 30 - 35%, slightly | | decreased from the prior study, when it was recorded at 35 - 40%. Left Ventricle: The | | left ventricle cavity size is normal. Left Ventricle: Left ventricular wall thickness is | | normal. Left Ventricle: There is moderate global hypokinesis of LV contractility. Left | | Ventricle: Atrial fibrillation prevents accurate assessment of diastolic function. Left | | Ventricle: False tendon visualized in the LV apex.Right Ventricle: The right ventricle | | is normal in size and function.Left Atrium: The left atrium is moderately enlarged, not | | significantly changed from the previous exam.Right Atrium: The right atrium is mildly | | enlarged, not significantly changed from the previous exam.Aortic Valve: Aortic valve is | | trileaflet and is mildly thickened. Aortic Valve: There is mild aortic valve sclerosis | | without stenosis, as on 2-D images, the leaflets separate normally, without restriction. | | Aortic Valve: Trace amount of aortic regurgitation. Aortic Valve: The aortic valve | | area by continuity equation is 1.9cm Aortic Valve: The maximum velocity across the | | aortic valve is 1.24m/s Aortic Valve: Peak/mean gradient across the valve is | | 6.18mmHg/3.08mmHg.Mitral Valve: The mitral valve is normal. There appears to be m Mitral | | Valve: [id number] mitral regurgitation, predominately an eccentric, posteriorly | | directed jet, unchanged from the previous study. It was not fully examined on color | | Doppler in the apical views, and could therefore not be evaluated fully. Mitral Valve: | | No evidence of MVP Mitral Valve: . Mitral Valve: Mild mitral annular calcification | | present.Tricuspid Valve: The tricuspid valve appears structurally normal. Tricuspid | | Valve: Mild tricuspid regurgitation is present, slightly less than what was seen on the | | previous exam. Tricuspid Valve: There is borderline pulmonary hypertension. Tricuspid | | Valve: The right ventricular systolic pressure (pulmonary artery systolic pressure), as | | measured by Doppler, is 36.37mmHg, unchanged from the previous study.Pulmonic Valve: The | | pulmonic valve is normal. Pulmonic Valve: Trace pulmonic regurgitation.Pericardium: | | There is no pericardial effusion.IVC/Hepatic Veins: The IVC is normal size (1.5-2.5cm) | | and collapses >50% with sniff, consistent with central venous pressures of | | 5-10mmHg.Aorta: The aortic root, ascending aorta and aortic arch are normal.Mass: No | | mass visualizedThrombus: No clot visualized Thrombus: No vegetation visualized.Septum: | | No ASD observed. Septum: No VSD observed.MEASUREMENTS Ao asc: 2.76 cmAo | | Diam: 3.00 cmAo sinus: 2.[address] junct: 2.47 cmIVC: 1.68 cmLA Diam: 5.56 | | cmLA Major: 5.57 cmEDV(Teich): 124.00 mlIVSd: 0.95 cmLVIDd: 5.10 cmLVPWd: 0.95 | | cmLVOT Area: 3.71 bd3LELU Diam: 2.17 cm%FS: 17.23 %EF(Teich): 35.78 | | %ESV(Teich): 79.62 mlLVIDs: 4.22 cmSV(Teich): 44.37 mlRA Major: 5.51 cmRV Major: | | 6.75 cmRVIDd: 2.54 cmLVEF MOD A2C: 34.62 %SV MOD A2C: 27.18 mlLVEF MOD A4C: | | 38.94 %SV MOD A4C: 28.82 mlEF Biplane: 36.74 %LVEDV MOD BP: 77.35 mlLVESV MOD BP: | | 48.92 mlLVEDV MOD A2C: 78.52 mlLVLd A2C: 6.95 cmLVEDV MOD A4C: 74.01 mlLVLd A4C: | | 7.17 cmLVESV MOD A2C: 51.34 mlLVLs A2C: 6.41 cmLVESV MOD A4C: 45.18 mlLVLs A4C: | | 6.65 cmLAESV(A-L): 76.06 mlLAESV Index (A-L): 43.22 ml/m2LAAs A2C: 23.19 | | [id number] A-L A2C: 80.31 mlLALs A2C: 5.68 cmLAAs A4C: 21.60 [id number] A-L A4C: | | 70.83 mlLALs A4C: 5.59 cmRAAs: 22.56 [id number] A-L: 73.39 mlRAESV MOD: 70.66 | | mlRALs: 5.88 cmTAPSE: 2.28 cmAV maxP.18 mmHgAV meanP.07 mmHgAV Vmax: | | 1.23 m/Judson Vmean: 0.82 m/Judson VTI: 19.35 cmAVA Vmax: 1.98 cm2AVA (VTI): 1.93 | | [id number] Vmax: 0.00 cm2/m2AVAI (VTI): 0.00 cm2/m2LVOT maxP.75 mmHgLVOT meanPG: | | 0.93 mmHgLVSI Dopp: 21.26 ml/m2LVSV Dopp: 37.42 mlLVOT Vmax: 0.66 m/sLVOT Vmean: | | 0.45 m/sLVOT VTI: 10.06 cmMV A Herrera: 0.04 m/sMV DecT: 167.58 msMV E Herrera: 0.77 | | m/sMV E/A Ratio: 18 MV PHT: 48.60 msMVA By PHT: 4.52 ks5Auxbob e': 0.06 | | m/sSeptal E/e': 12.48 Lateral e': 0.07 m/sLateral E/e': 10.67 RAP: 5 mmHgRVSP: | | 36.37 mmHgTR maxP.37 mmHgTR Vmax: 2.80 m/sSonographer: Authenticated by: | | Jerman Gutierrez Date/Time: 08-03-2017 11:33:16IMPRESSION:1. Overall left | | ventricular systolic function is moderate-severely impaired with, an EF between 30 - | | 35%, slightly decreased from the previous echocardiographic study, done 07/12/16, when it | | was recorded at 35 - 40%.2. The right ventricle is normal in size and function.3. The | | left atrium is moderately enlarged, unchanged from the previous study.4. | | Fqyncwkp-bo-mkitil mitral regurgitation is present, predominately an eccentric, | | posteriorly directed jet, unchanged from the previous study.5. There is borderline | | pulmonary hypertension, unchanged from the previous study. | |IVSd: 0.95 cm | |LVIDd: 5.10 cm | |LVPWd: 0.95 cm | |LVOT Area: 3.71 cm2 | |LVOT Diam: 2.17 cm | |%FS: 17.23 % | |EF(Teich): 35.78 % | |ESV(Teich): 79.62 ml | |LVIDs: 4.22 cm | |SV(Teich): 44.37 ml | |RA Major: 5.51 cm | |RV Major: 6.75 cm | |RVIDd: 2.54 cm | |LVEF MOD A2C: 34.62 % | |SV MOD A2C: 27.18 ml | |LVEF MOD A4C: 38.94 % | |SV MOD A4C: 28.82 ml | |EF Biplane: 36.74 % | |LVEDV MOD BP: 77.35 ml | |LVESV MOD BP: 48.92 ml | |LVEDV MOD A2C: 78.52 ml | |LVLd A2C: 6.95 cm | |LVEDV MOD A4C: 74.01 ml | |LVLd A4C: 7.17 cm | |LVESV MOD A2C: 51.34 ml | |LVLs A2C: 6.41 cm | |LVESV MOD A4C: 45.18 ml | |LVLs A4C: 6.65 cm | |LAESV(A-L): 76.06 ml | |LAESV Index (A-L): 43.22 ml/m2 | |LAAs A2C: 23.19 cm2 | |LAESV A-L A2C: 80.31 ml | |LALs A2C: 5.68 cm | |LAAs A4C: 21.60 cm2 | |LAESV A-L A4C: 70.83 ml | |LALs A4C: 5.59 cm | |RAAs: 22.56 cm2 | |RAESV A-L: 73.39 ml | |RAESV MOD: 70.66 ml | |RALs: 5.88 cm | |TAPSE: 2.28 cm | |AV maxP.18 mmHg | |AV meanP.07 mmHg | |AV Vmax: 1.23 m/s | |AV Vmean: 0.82 m/s | |AV VTI: 19.35 cm | |JUSTIN Vmax: 1.98 cm2 | |JUSTIN (VTI): 1.93 cm2 | |AVAI Vmax: 0.00 cm2/m2 | |AVAI (VTI): 0.00 cm2/m2 | |LVOT maxP.75 mmHg | |LVOT meanP.93 mmHg | |LVSI Dopp: 21.26 ml/m2 | |LVSV Dopp: 37.42 ml | |LVOT Vmax: 0.66 m/s | |LVOT Vmean: 0.45 m/s | |LVOT VTI: 10.06 cm | |MV A Herrera: 0.04 m/s | |MV DecT: 167.58 ms | |MV E Herrera: 0.77 m/s | |MV E/A Ratio: 18 | |MV PHT: 48.60 ms | |MVA By PHT: 4.52 cm2 | |Septal e': 0.06 m/s | |Septal E/e': 12.48 | |Lateral e': 0.07 m/s | |Lateral E/e': 10.67 | |RAP: 5 mmHg | |RVSP: 36.37 mmHg | |TR maxP.37 mmHg | |TR Vmax: 2.80 m/s | | | |Supervisor Rice Milling: | |Authenticated by: Jerman Geronimo | |Report Date/Time: 08-03-2017 11:33:16 | | | |IMPRESSION: | |1. Overall left ventricular systolic function is moderate-severely impaired with, an EF bet ween 30 - 35%, slightly decreased from the previous echocardiographic study, done 07/12/16, w hen it was recorded at 35 - 40%. | |2. The right ventricle is normal in size and function. | |3. The left atrium is moderately enlarged, unchanged from the previous study. | |4. Tctxxedo-ak-wjqfau mitral regurgitation is present, predominately an eccentric, posterio rly directed jet, unchanged from the previous study. | |5. There is borderline pulmonary hypertension, unchanged from the previous study. | + + CBC W/Auto Diff (Reflex to Manual) (07/24/2017 7:37 AM) + + + + | Component | Value | Ref Range | + + + + | WBC | 9.8 | 4.5 - 11.0 10^3/mL | + + + + | RBC | 4.98 | 4.3 - 5.7 10^6/ L | + + + + | HGB | 15.6 | 13.5 - 18.0 g/dL | + + + + | HCT | 46.5 | 41 - 50 % | + + + + | MCV | 93.5 | 81 - 99 fL | + + + + | MCH | 31 | 27 - 33 pg | + + + + | MCHC | 34 | 30 - 36 g/dL | + + + + | PLT | 132 (A) | 140 - 440 K/ L | + + + + | RDW SD | 15.1 (A) | 10.5 - 15.0 % | + + + + | MPV | | fL | + + + + | DIFF TYPE | | | + + + + | NEUTROPHILS | 74.3 | 39 - 80 % | + + + + | LYMPHOCYTES | 11.3 (A) | 24 - 44 % | + + + + | MONOCYTES | 12.5 (A) | 0 - 12 % | + + + + | EOSINOPHILS | 1.0 | 0 - 6 % | + + + + | BASOPHILS | 0.9 | 0 - 2 % | + + + + | NEUTROPHILS ABS | | / L | + + + + | LYMPHOCYTES ABS | | / L | + + + + | MONOCYTES ABS | | / L | + + + + | EOSINOPHILS ABS | | / L | + + + + | BASOPHILS ABS | | / L | + + + + + + + | Specimen | Performing Laboratory | + + + | Blood | [facility] [address] [place] [address] | | | [id number] | + + + TSH (07/24/2017 7:37 AM) + +-------+ + | Component | Value | Ref Range | + +-------+ + | TSH | 2.39 | 0.270 - 4.20 uIU/mL | + +-------+ + + + + | Specimen | Performing Laboratory | + + + | Blood | [facility] [address] | | | [address] | + + + Digoxin (07/24/2017 7:37 AM) + +---------+ + | Component | Value | Ref Range | + +---------+ + | DIGOXIN LEVEL | 0.2 (A) | 0.8 - 2.0 | + +---------+ + + + + | Specimen | Performing Laboratory | + + + | Blood | [facility] [address] | | | [address] | + + + Lipid panel (07/24/2017 7:37 AM) + +---------+ + | Component | Value | Ref Range | + +---------+ + | CHOLESTEROL | 195 | 200 mg/dL | + +---------+ + | TRIGLYCERIDES | 195 (A) | 30 - 150 mg/dL | + +---------+ + | HDL CHOL | 48.3 | 40 mg/dl | + +---------+ + | LDL CALC | 108 (A) | 100 mg/dL | + +---------+ + | LDl/HDL Ratio | | | + +---------+ + | CHOL/HDL | 4.0 | 4.97 | + +---------+ + | VLDL CHOL | 39 | 4 - 40 mg/dL | + +---------+ + | NON HDL CHOL | 147 (A) | 130 | + +---------+ + + + + | Specimen | Performing Laboratory | + + + | Blood | [facility] [place] | | | [address] | + + + Comprehensive metabolic panel (07/24/2017 7:37 AM) + + + + | Component | Value | Ref Range | + + + + | GLUCOSE | 93 | 70 - 100 mg/dL | + + + + | BUN | 41 (A) | 6 - 23 mg/dL | + + + + | CREATININE | 1.28 | 0.70 - 100 mg/dL | + + + + | BUN/CREAT | 32.0 (A) | 6.0 - 28.6 | + + + + | CALCIUM | 9.6 | 8.4 - 10.2 mg/dL | + + + + | TOTAL PROTEIN | 5.7 (A) | 6.0 - 8.0 g/dL | + + + + | Albumin | 4.0 | 3.5 - 5.0 | + + + + | GLOBULIN | 1.7 (A) | 1.8 - 3.5 | + + + + | A/G | 2.4 | 1.1 - 2.4 | + + + + | TBIL | 1.2 | 0.0 - 1.2 mg/dL | + + + + | ALK PHOS | 69 | 31 - 120 | + + + + | ALT | 16 | 7 - 52 U/L | + + + + | AST | 19 | 13 - 39 U/L | + + + + | SODIUM | 140 | 132 - 143 mmol/L | + + + + | POTASSIUM | 4.0 | 3.6 - 5.1 mmol/L | + + + + | CHLORIDE | 103 | 95 - 112 mmol/L | + + + + | CO2 | 22 | 19 - 31 mmol/L | + + + + | ANION GAP AGAP | 19.0 | 7 - 21 mmol/L | + + + + | EGFR | 54 (A) | 60 mg/dL | + + + + + + + | Specimen | Performing Laboratory | + + + | Blood | [facility] [address], [facility] [address] [place], [place] | | | [address] | + + + from Last 3 Months Insurance + +--------+ +------+-------+ + | Payer | Benefi | Subscriber | Type | Phone | Address | | | t Plan | ID | | | | | | / | | | | | | | Group | | | | | + +--------+ +------+-------+ + | MEDICARE | MEDICA | xxxxxxxxxx | | | [address] | | | RE | | | | [place] [id number] | | | IP-OP | | | | | + +--------+ +------+-------+ + | COMMERCIAL OTHER | COMMER | xxxxxxx | | | | | | CIAL | | | | | | | GENERI | | | | | | | C PLAN | | | | | + +--------+ +------+-------+ + + +--------+ +--------+ + + | Guarantor Name | Accoun | Relation to | Date | Phone | Billing Address | | | t Type | Patient | of | | | | | | | | | | + +--------+ +--------+ + + | NESTOR YANEZ | Person | Self [birth year] Home: | [address] | | | al/Fam | | 1935 | [phone] [place] | | | ron | | | [phone] | + +--------+ +--------+ + +
--- OUTSIDE RECORDS SUMMARY | 2017-09-25 05:28 | XMS | Encounter Summary ---
Demographics + + + | Address | [address] | | | [place] [address] | + + + | Home Phone | | + + + | Preferred Language | Unknown | + + + | Marital Status | | + + + | Sikh Affiliation | 1013 | + + + | Race | Unknown | + + + | Ethnic Group | Unknown | + + + Author + + + | Author | [facility] | + + + | Organization | [facility] | + + + | Address | Unknown | + + + | Phone | Unavailable | + + + Support + + + + + | Name | Relationship | Address | Phone | + + + + + | Nestor Miranda | ECON | [address] | | | | | [place] | | | | | [address] | | + + + + + Care Team Providers + +------+ + | Care Customer Operations Manager Name | Role | Phone | + +------+ + | Aaron Schwarz DO | PCP | | + +------+ + Reason for Visit + + + | Reason | Comments | + + + | Medication Refill | | + + + Encounter Details +--------+--------+ + + + | Date | Type | Department | Care Team | Description | +--------+--------+ + + + | 09/07/ | Refill | [facility] [place] | Jerman Geronimo, | Medication Refill | | 2018 | | Cardiology [place] | [address] | | | | | [address] | [place], | | | | | [facility] [address] | [place] [id number] | | | | | [place] [address] | [phone] | | | | | [phone] | | | +--------+--------+ + + + Social History + + + [...] on file | | + + + as of this encounter Plan of Treatment +--------+---------+ + + + | Date | Type | Specialty | Care Team | Description | +--------+---------+ + + + | 10/23/ | Office | Cardiology | Jerman Geronimo, | | | 2017 | Visit | | MD [address] | | | | | | [place], | | | | | | [place] [address] | | | | | | [phone] | | | | | | | | +--------+---------+ + + + as of this encounter Visit Diagnoses Not on filein this encounter"
--- OUTSIDE RECORDS SUMMARY | 2017-09-25 05:28 | XMS | Clinical Summary ---
Demographics + + + | Address | [address] | | | [place] [address] | + + + | Home Phone | | + + + | Preferred Language | Unknown | + + + | Marital Status | | + + + | Mandaeism Affiliation | Unknown | + + + | Race | White | + + + | Ethnic Group | Not or | + + + Author + + + | Author | [facility] | + + + | Organization | [facility] | + + + | Address | Unknown | + + + | Phone | Unavailable | + + + Care Team Providers + +------+ + | Care Cloth Washer Operator Name | Role | Phone | + +------+ + PP | Unavailable | + +------+ + Source Comments [facility] Allergies Not on File Current Medications Not on file Active Problems Not on file Social History + +-------+ +--------+------+ | Tobacco Use | Types | Packs/Day | Years | Date | | | | | Used | | + +-------+ +--------+------+ | Never Assessed | | | | | + +-------+ +--------+------+ + + + | Sex Assigned at | Date Recorded | | | | + + + | Not on file | | + + + Plan of Treatment Not on file Results Not on filefrom Last 3 Months"
--- OUTSIDE RECORDS SUMMARY | 2017-09-25 05:28 | XMS | Encounter Summary ---
Demographics + + + | Address | [address] | | | [place] [address] | + + + | Home Phone | | + + + | Preferred Language | Unknown | + + + | Marital Status | | + + + | Hoahaoism Affiliation | 1013 | + + + | Race | Unknown | + + + | Ethnic Group | Unknown | + + + Author + + + | Author | [facility] | + + + | Organization | [facility] | + + + | Address | Unknown | + + + | Phone | Unavailable | + + + Support + + + + + | Name | Relationship | Address | Phone | + + + + + | Nestor Miranda | ECON | [address] | | | | | [place] | | | | | [address] | | + + + + + Care Team Providers + +------+ + | Care Sill Worker Name | Role | Phone | + +------+ + | Aaron Schwarz DO | PCP | | + +------+ + Reason for Visit +--------+ + | Reason | Comments | +--------+ + | Other | Patients home diary, medications, bp | +--------+ + Encounter Details +--------+ + + + + | Date | Type | Department | Care Team | Description | +--------+ + + + + | 08/21/ | Documentati | [facility] [place] | Quita Hernandez, | Other (Patients home | | 2018 | on Only | Cardiology [place] | [facility] | diary, medications, | | | | [address] | | bp) | | | | [place] | | | | | | [address] | | | | | | [phone] | | | +--------+ + + + + Social History + + [...] 10/23/ | Office | Cardiology | Jerman Geronmio, | | | 2017 | Visit | | MD [address] | | | | | | [place], | | | | | | [place] [address] | | | | | | [phone] | | | | | | | | +--------+---------+ + + + as of this encounter Visit Diagnoses Not on filein this encounter"
--- OUTSIDE RECORDS SUMMARY | 2017-09-25 05:29 | XMS | Encounter Summary ---
Demographics + + + | Address | [address] | | | [place] [address] | + + + | Home Phone | | + + + | Preferred Language | Unknown | + + + | Marital Status | | + + + | Scientologist Affiliation | 1013 | + + + | Race | Unknown | + + + | Ethnic Group | Unknown | + + + Author + + + | Author | [facility] | + + + | Organization | [facility] | + + + | Address | Unknown | + + + | Phone | Unavailable | + + + Support + + + + + | Name | Relationship | Address | Phone | + + + + + | Nestor Miranda | ECON | [address] | | | | | [place] | | | | | [address] | | + + + + + Care Team Providers + +------+ + | Care Printed Circuit Board Panels Trimmer Name | Role | Phone | + +------+ + | Aaron Schwarz DO | PCP | | + +------+ + Reason for Visit + + + | Reason | Comments | + + + | Labs Only | | + + + Encounter Details +--------+ + + + + | Date | Type | Department | Care Team | Description | +--------+ + + + + | 07/25/ | Documentati | [facility] | [place], | Labs Only | | 2018 | on Only | Cardiology [place] | [address] | | | | | [address] | | | | | | [place] | | | | | | [address] | | | | | | [phone] | | | +--------+ + + + [...] Cardiology | Jerman Geronimo, | | | 2018 | Visit | | MD [address] | | | | | | [place], | | | | | | [place] [address] | | | | | | [phone] | | | | | | | | +--------+---------+ + + + as of this encounter Visit Diagnoses Not on filein this encounter"
--- OUTSIDE RECORDS SUMMARY | 2017-09-25 05:29 | XMS | Encounter Summary ---
Demographics + + + | Address | [address] | | | [place] [address] | + + + | Home Phone | | + + + | Preferred Language | Unknown | + + + | Marital Status | | + + + | Yarsanism Affiliation | [id number] | + + + | Race | Unknown | + + + | Ethnic Group | Unknown | + + + Author + + + | Author | [email or web address] | + + + | Organization | [email or web address] | + + + | Address | Unknown | + + + | Phone | Unavailable | + + + Support + + + + + | Name | Relationship | Address | Phone | + + + + + | Nestor Miranda | ECON | [address] | | | | | [place] | | | | | [address] | | + + + + + Care Team Providers + +------+ + | Care Clin Tech Name | Role | Phone | + +------+ + | Aaron Harman DO | PCP | | + +------+ + Reason for Visit + + + | Reason | Comments | + + + | Follow-up | 1 month | + + + Encounter Details +--------+---------+ + + + | Date | Type | Department | Care Team | Description | +--------+---------+ + + + | // | Office | [facility] | Tiffani Reyna | Coronary artery | | 2018 | Visit | Card[facility] | NIYAH Sarkar [address] | disease of seminole | | | | [address] | Nadine Perez F | artery of seminole | | | | [address] | [place] [address] | heart with stable | | | | [place] [address] | [phone] | angina pectoris | | | | [phone] | | ([facility]) (Primary Dx); | | | | | | S/P PTCA | | | | | | (percutaneous | | | | | | transluminal | | | | | | coronary | | | | | | angioplasty); | | | | | | 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 | | | | | | ([facility]); Chronic | | | | | | atrial fibrillation | | | | | | ([facility]); Moderate to | | | | | | severe mitral | | | | | | regurgitation; | | | | | | 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 ([facility]); PVD | | | | | | (peripheral vascular | | | | | | disease) ([facility]); | | | | | | Chronic obstructive | | | | | | pulmonary disease, | | | | | | unspecified COPD | | | | | | type ([facility]) | +--------+---------+ + + + Social History + + [...] + + + as of this encounter Last Filed Vital Signs + + + + | Vital Sign | Reading | Time Taken | + + + + | Blood Pressure | 108/50 | 08/20/2017 9:53 AM PST | + + + + | Pulse | 69 | 08/20/2017 9:53 AM PST | + + + + | Temperature | - | - | + + + + | Respiratory [...] AM PST | + + + + in this encounter Instructions Patient Instructions - Tiffani ReynaNIYAH - 08/20/2017 10:00 AM PSTTry taking atorv astatin 20 mg every other day for one month, and if tolerate this, try taking it nightly If problems, try taking it 20 mg 3-4 times per week Decrease torsemide to 10 mg daily again, and call if start to have more problems with ibrahima thing . I will order a lipid panel to be done last week of September , prior to seeing Dr. Geronimo in October , as you LDL should be 70 with coronary artery disease Avoid processed foods, snack foods, eat chicken and fish more that red meat , and walk as m ch as you can to help with triglycerides as well You will follow up with Dr. Geronimo October 23 at 3:45 in this encounter Progress Notes Axel Tiffani SarkarNIYAH - 08/20/2017 10:00 AM PSTFormatting of this note may be differen t from the original. Date of visit: 08/21/2017 Primary Care Physician: AARON HARMAN CHIEF COMPLAINT: Chief Complaint Patient presents with Follow-up 1 month HISTORY OF PRESENT ILLNESS: Mr. Nestor Miranda is an 82-year-old man who is here today for further follow-up on respon se to medication changes made by Dr. Geronimo on July 30 after he had not been tolerating ca rvedilol, as well as digoxin , and labs and Echo results. 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 The Plavix stopped when one year post-stenting, 07/2016 and now continuing on aspirin 8 1 mg and warfarin. He was last seen by Dr. Geronimo on July 10, 2017 when he had stopped diltiazem and Bystolic and started him on carvedilol and increased his dose of torsemide for increased fluid reten tion and dyspnea, and he changed him to Ziac 03/23.25 July 30 when he did not tolerate carvedilol. His previous testing Is detailed below His lipid panel performed in July 2017 shows poorly controlled on Atorvastatin 40 mg tw ice a week , with triglycerides of 195, and LDL of 108 with an HDL of 48.3 and total cholest faith of 195, CMP normal except for BUN of 41, elevated protein and globulin, and decreased G FR of 54 creatinine of 1.28, normal TSH , digoxin level 0.2, and CBC shows normal hemoglobi n and hematocrit but decreased platelet count 132, with increased lymphocytes and monocyte s. His EKG done in the office today, 08/20/2017. shows Atrial fib much better controlled at 75 bpm with one PVC and stable inferolateral ST abnormalities. He reports today , he feels considerably improved on Ziac and digoxin and brought in deta iled log since Jul 30 of his heart rate , blood pressure , O2 sat ,INR, and symptoms which I had scanned into his chart. It documented improved heart rate control as 65-75 bpm, sy stolic blood pressure 11-123 mmHg, and much improved activity tolerance and resolution of pr evious dyspnea and bloating . His last INR 2.7 08/14/2017 and denies any bleeding. He brought all of his medications to the visit today and I reviewed them with him personall y. He reports he continues to walk in [place] 3-4 times per week and now able to walk with c art 45 minutes but cannot tolerate walking uphill, or for any great distance. He denies any chest pain, dizziness or syncope. He also denies any signs or symptoms of s troke or transient ischemic attack. REVIEW OF SYSTEMS: Negative except for pertinent items noted in HPI. Constitutional: Denies fatigue or unexplained weight loss. Denies night sweats fevers or chills HENT: Denies nosebleeds. Positive for bilateral hearing loss, positive for mild dysphagia Eyes: Denies visual disturbance or double vision. Respiratory/Sleep:: Complaint of dyspnea with orthopnea, denies PND. History of COPD, asth ma and emphysema. Denies snoring Denies cough Denies hemoptysis or excessive sputum produ ction. Cardiovascular: Positive for Mild pedal edema Denies chest pain, palpitations . Denies hi story of rheumatic fever. Positive for Hx bilateral claudication , pt reports weakness t o legs Gastrointestinal: Positive for diverticulosis Denies history of gastroesophageal reflux dis ease . Denies nausea, vomiting, abdominal pain and blood in stool. Genitourinary: Positive for mild chronic kidney disease, previous history of kidney stones Denies hematuria. Musculoskeletal: Positive for arthritis with arthralgias to hands Denies myalgias, back bartolo n and arthralgias. Skin: Denies color change. Denies rash or lesions Neurological: Denies history of stroke/Transient ischemic attack.Denies history of seizures . Denies dizziness, syncope and numbness. Hematological/Oncology Does not bruise/bleed easily. Denies history of cancer Endocrine: Positive for type II diabetes, denies thyroid disease. Denies excessive thirst or hunger. Psychiatric/Behavioral: The patient denies any history of depression or anxiety or other ps ychiatric illness. Vaccines: Current on 2017 flu vaccine. Current on pneumonia vaccine. Habits/Social : history of smoking, quit 09/1996, smoked 2 packs a day 40 years. EtOH u se.1-2 glasses of wine per week, occasionally drinks whiskey. Drinks 1-2servings of caffein e daily . Denies recreational illicit drug use. Exercises with walking in [place] 2-3 time s per week, can go 2-3 times around the store and tolerates. . Lives in [place]. Outpatient Medications Prior to Visit Medication Sig Dispense Refill allopurinol (ZYLOPRIM) 100 MG tablet Take 100 mg by mouth daily. arformoterol (BROVANA) 15 MCG/2ML NEBU Take 15 mcg by nebulization 2 (two) times daily. aspirin 81 MG tablet Take 81 mg by mouth daily. Start taking this when you have finishe d current Plavix supply atorvastatin (LIPITOR) 40 MG tablet Take 1 tablet by mouth daily. (Patient taking diffe rently: Take 40 mg by mouth twice a week. Takes 1 pill twice a week , as had myalgias when t ook daily) 30 tablet 11 bisoprolol-hydrochlorothiazide (ZIAC) 10-6.25 MG per tablet Take 1 tablet by mouth matthew y. 30 tablet 11 budesonide (PULMICORT) 0.5 MG/2ML nebulizer suspension Take 0.5 mg by nebulization 2 (t wo) times daily. Cholecalciferol 2000 UNITS CAPS Take 1,000 Units by mouth. Coenzyme Q-10 100 MG capsule Take 100 mg by mouth daily. digoxin (LANOXIN) 0.125 MG tablet Take 1 tablet by mouth daily. 30 tablet 11 fish oil-omega-3 fatty acids 1000 MG capsule Take 2 g by mouth daily. glipiZIDE (GLUCOTROL) 5 MG tablet Take 5 mg by mouth daily. ipratropium-albuterol (DUO-NEB) 0.5-2.5 mg/3mL Take 3 mLs by nebulization as needed. losartan (COZAAR) 50 MG tablet Take 50 mg by mouth daily. montelukast (SINGULAIR) 10 MG tablet Take 10 mg by mouth nightly. Multiple Vitamins-Minerals (MULTIVITAMIN WITH MINERALS) tablet Take 1 tablet by mouth d aily. nitroGLYCERIN (NITROSTAT) 0.[address] 1 tablet under the tongue every 5 (fiv e) minutes as needed for Chest pain. 90 tablet 12 potassium chloride (K-DUR) 10 MEQ tablet Take 1 tablet by mouth 2 (two) times daily wit h meals. 90 tablet 11 roflumilast (DALIRESP) 500 MCG tablet Take 500 mcg by mouth every other day. warfarin (COUMADIN) 3 MG tablet Take 3 mg by mouth daily. ipratropium (ATROVENT) 0.02 % nebulizer solution Take 0.5 mg by nebulization 4 (four) t imes daily. torsemide (DEMADEX) 10 MG tablet Take 2 tablets by mouth daily. 60 tablet 11 clopidogrel (PLAVIX) 75 MG tablet Take 1 tablet by mouth daily. (Patient taking differe ntly: Take 75 mg by mouth daily. Stop taking this medication at the end of the current suppl y, then start aspirin 81 mg daily) 30 tablet 11 No facility-administered medications prior to visit. PHYSICAL EXAM: Wt Readings from Last 3 Encounters: 08/20/17 66.9 kg (147 lb 8 oz) 07/23/17 67.2 kg (148 lb 1.6 oz) 07/10/17 68.3 kg (150 lb 8 oz) Temp Readings from Last 3 Encounters: 07/29/16 97.6 F (36.4 C) (Oral) 11/01/15 98.9 F (37.2 C) (Tympanic) 10/20/15 97.3 F (36.3 C) (Oral) BP Readings from Last 3 Encounters: 08/20/17 108/50 07/23/17 94/54 07/10/17 92/52 Pulse Readings from Last 3 Encounters: 08/20/17 69 07/23/17 96 07/10/17 84 GENERAL: Well developed, well nourished, in no distress. Appears approximately stated age . HEENT: Normocephalic, atraumatic. EYES: PERRL, EOM normal. MOUTH: Oral mucosae moist, dentition adequate, no lesions noted NECK: No JVD, lymphadenopathy, thyromegaly, bruits. Carotid pulses are 2+ bilaterally LUNGS/CHEST: Clear bilaterally, with no rales, rhonchi or wheezing noted, respirations unl abored HEART: Nondisplaced PMI, regular rate and rhythm, S1, S2 normal. No murmurs, rubs or gall ops noted. ABDOMEN: Soft, nontender, no organomegaly, masses or bruits. Bowel sounds are normal in a ll 4 quadrants. The abdominal aortic pulsation is not palpable. EXTREMITIES: Mild pedal edema bilaterally. Radial pulses 2+ bilaterally. Femoral pulses a re 2+ bilaterally without bruits. DP and PT pulses are 2+ bilaterally. No clubbing. SKIN: Warm and dry, capillary refill is normal, no lesions. NEUROLOGIC: Awake, alert and oriented x 3. No focal motor or sensory deficits. PSYCHIATRIC: Appropriate, affect appears normal DATA: Blood tests: Lab Results Component Value Date WBC 9.8 07/24/2017 RBC 4.98 07/24/2017 HGB 15.6 07/24/2017 HCT 46.5 07/24/2017 PLT 132 (A) 07/24/2017 Lab Results Component Value Date NA 140 07/24/2017 K 4.0 07/24/2017 CL 103 07/24/2017 CO2 22 07/24/2017 ANIONGAP 19.0 07/24/2017 GLUF 93 07/24/2017 BUN 41 (A) 07/24/2017 CREATININE 1.28 07/24/2017 BCR 32.0 (A) 07/24/2017 CA 9.6 07/24/2017 EGFR 54 (A) 07/24/2017 Lab Results Component Value Date CHOL 195 07/24/2017 TRIG 195 (A) 07/24/2017 LDL 108 (A) 07/24/2017 GLUF 93 07/24/2017 HGBA1C 7.8 (H) 10/01/2015 Lab Results Component Value Date BNP 260 (H) 09/30/2015 CKTOTAL 78 07/29/2016 TSH 2.39 07/24/2017 CRP 9.3 (A) 10/18/2015 No results found for: METF, NMETFX, TFNMFX, NLGZSFB82ESK, [id number], TOTEPI IMAGING /PROCEDURES ; Last Lexiscan Cardiolite Stress Test (11/28/16): LV enlargement, with no TID. There is scar ring in the inferolateral and lateral segments, with no evidence of ischemia. Hypokinesis of the inferolateral and lateral segments,EF 35% on resting images, 42% on stress images. Lexiscan Myoview Stress Test (07/12/16): ST-T abnormalities with Lexiscan infusion, but no c lear evidence of myocardial scarring or ischemia on myocardial SPECT perfusion imaging. Monsalve alfa, there is transient ischemic dilatation of the left ventricle, which is a high risk feat ure. Last Angiogram/PCI: R/L Cardiac Cath (07/28/16): RA-7, PA-47/22, mean 31, PCW-23, LVEDP-24, CO-3.67, CI-2.1. LM-distal 20-25%, LAD-normal. D1-long 90-99% > 2.25x20 Promus Premier CLIFF; Ramus- prox 75% > 2.75x28 Promus Premier CLIFF. LCx-small, non-dominant, normal. RCA-dominant , mid 65-70%, distal 35-40%. LVEF 30-35%, 2+MR Cardiac cath (01/28/04) No significant CAD, normal LV systolic function (done after a false positive nuclear stress test). ECHO: Last Echo: 2017: Atrial fib EF 30-35 percent. LV normal in size and wall thicknes s. Moderate global hypo kinesis of LV. Unable to estimate diastolic function due to atrial fib. RV normal in size and function. Moderate left atrial enlargement, stable mild BIANCA, s table. Aortic valve trileaflet, mildly thickened, mild aortic valve sclerosis without steno sis, trace AR.aortic valve area by continuity equation is 1.9cm maximum velocity acros s the aortic valve is 1.24m/s Peak/mean gradient across the valve is 6.18mmHg/3.08mmHg. [facility] ral valve normal, stable moderate to severe MR, no evidence of mitral valve prolapse. Mild MAC. Mild TR. Borderline pulmonary hypertension, stable. RVSP 36.37 mmHg. IVC normal, CV P normal. Aortic root, ascending aorta, and aortic arch are normal Echo (07/12/16): EF 35-40% (unchanged from 09/27/15, but was previously normal in 2011), nor mal RV size/function, moderately severe MR, mild-moderate TR (both increased from prior stud ies), borderline pulmonary HTN, RVSP 36.9 mm Hg Echo (09[facility] moderate global hypokinesis, EF 35-40%, marked LAE, mi ld BIANCA, mild RV systolic dysfunction, moderate MR, mild TR. Mild pulmonary hypertension, wit h a peak right ventricular systolic pressure 42-47 mmHg. Echo (08/03/11): EF 60-65%, mild basal inferolateral hypokinesis. Diastolic dysfunction. Mil d LAE. Mild AI, MR, TR. No evidence of pulmonary hypertension. EKG/EVENT MONITOR: 48 hour Holter monitor (10/25/15): Atrial fibrillation was present throughout the entire day recording, a well-controlled ventricular rate. There were rare PVCs EK2016:Atrial fib, ST and T wave abnormality to inferior and anterolateral leads. Rate 76 bpm, QRS 82 ms, QTC 443 ms, personally reviewed by wy EK2016. Atrial fibrillation, nonspecific ST abnormality. Rate 80 bpm, QRS 90 ms, QTC 481 ms(post stenting), personally reviewed by wy EK2017: Atrial fibrillation RVR, nonspecific T-wave abnormality to lateral and infe rior leads , rate 105 bpm, QRS 90 ms, QTC 449 ms, personally reviewed by me and weight has i ncreased significantly since last EKG done in July 2006 EK2017: Atrial fibrillation with PVCs, ST and T wave abnormality to inferior latera l leads, rate 75 bpm, QRS 86 ms, QTC 433 ms as was digoxin) seen personally reviewed by me LABS: Labs: 07/06: BMP: Sodium 142, potassium 3.8, chloride 98, glucose 116, BUN 19, creatin ine 1.02, GFR 70, BNP 617 Labs: 2016: CBC: WBC 9.07, hemoglobin 13.8, hematocrit 40.7, platelets 158 Labs: 2017: Lipids: Cholesterol 195, triglycerides 195, HDL 48.3, LDL 108, ratio 4, VL DL 39, non-HDL cholesterol 147. CMP: Glucose 93, BUN 41, creatinine 1.28, total protein 4.7 , albumin 4, globulin 1.7, total bilirubin 1.2, alk phos 69, ALT 16, AST 19, sodium 140: Pot assium 4, chloride 103, CO2 22, GFR 54 thyroid: TSH 2.39 digoxin 0.2 CBC: WBC 9.8, hemoglob in 15.6, hematocrit 46.5, platelets 132, RDW 15.1, lymphocytes 11. 3, monocytes 12.5 INR: 08/14/2017: 2.7 ASSESSMENT & PLAN: He was here today to for one month follow up and is much improved, with atrial fib now wit h controlled ventricular response with digoxin and Ziac, instead of carvedilol . He now reports previous symptoms of dyspnea,and bloating resolved, and has improved activ ity tolerance with improved blood pressure. His labs show lipids poorly controlled on Atorvastatin 40 mg twice a week , with triglycer ides of 195, and LDL of 108 , CMP normal except for BUN of 41, elevated protein and globulin , and decreased GFR of 54, creatinine of 1.28, normal TSH , digoxin level 0.2, and CBC show s normal hemoglobin and hematocrit but decreased platelet count 132, with increased lympho cytes and monocytes.I reviewed results with him I have asked him to try taking Atorvastatin 20 mg every other night to see if can get bett er lipid control without increased side effects, and to increase frequency to nightly if dayne erates. I have also reinforced heart healthy diet , and exercise. His latest Echo, which I reviewed with him in detail, showed mild decrease to EF to 30-35 %, with stable LAE, and stable moderate to severe MR, and stable borderline hypertension. He seems euvolemic, and decline in renal function, and I have decreased Torsemide to 10 mg daily, as Ziac also has HCTZ. He has now stopped Plavix and back on ASA 81 mg and coumadin for target INR 2-2, and repor ts less bruising since Plavix finished, so now back on Fish Oil. . For his other cardiac medications, he should continue digoxin 125 mcg,Losartan 50 mg daily , and potassium 10 mEq BID. He will follow up again with Dr. Geronimo in October , and will see me again as directed by Dr. Terrell. I have ordered CMP and lipid panel to be repeated prior to seeing Dr. Geronimo with copies to be sent to PCP, Dr. Harman. 1. 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 S/P PTCA (percutaneous transluminal coronary angioplasty) 3. Dilated cardiomyopathy (HCC) 4. Chronic atrial fibrillation (HCC) 5. Moderate to severe mitral regurgitation 6. Chronic combined systolic and diastolic heart failure (HCC) 7. PVD (peripheral vascular disease) (HCC) 8. Chronic obstructive pulmonary disease, unspecified COPD type (HCC) 9. Type 2 diabetes mellitus without complication, without long-term current use of insulin (HCC) 10. Mixed hyperlipidemia 11. Encounter for monitoring digoxin therapy 12. Anticoagulated on Coumadin Orders Placed This Encounter Procedures Comprehensive metabolic panel Lipid panel Electrocardiogram, 12-lead The following portions of the patient's history were personally reviewed by me and updated as appropriate: EKG tracings, other specialty provider and PCP notes,any Hospital admission and discharge summaries, any ER records , current and previous cardiac testing and procedure reports and d carli, home heart rate and blood pressure log, medication bottles brought to visit today pers onally reviewed by me. Allergies, current medications.labs Family history, past medical history, past social history, past surgical history. Problem list. NIYAH [facility] Cardiology 08/21/2017in this encounter Plan of Treatment +--------+---------+ + + + | Date | Type | Specialty | Care Team | Description | +--------+---------+ + + + | 10/23/ | Office | Cardiology | Jerman Geronimo, | | | 2017 | Visit | | MD [address] | | | | | | [place], | | | | | | [place] [id number] | | | | | | [phone] | | | | | | | | +--------+---------+ + + + + +--------+ + + | Name | Priori | Associated Diagnoses | Order Schedule | | | ty | | | + +--------+ + + | Comprehensive metabolic panel | Routin | Coronary artery | Expected: | | | e | disease of seminole | 10/08/2017, Expires: | | | | artery of seminole | 08/20/2018 | | | | heart with stable | | | | | angina pectoris | | | | | ([facility]) S/P PTCA | | | | | (percutaneous | | | | | transluminal | | | | | coronary | | | | | angioplasty) | | | | | Dilated | | | | | cardiomyopathy ([facility]) | | | | | Chronic atrial | | | | | fibrillation ([facility]) | | | | | 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 | | | | | failure ([facility]) Type | | | | | 2 diabetes mellitus | | | | | without | | | | | complication, | | | | | without long-term | | | | | current use of | | | | | insulin ([facility]) | | + +--------+ + + | Lipid panel | Routin | Coronary artery | Expected: | | | e | disease of seminole | 10/08/2017, Expires: | | | | artery of seminole | 08/20/2018 | | | | heart with stable | | | | | angina pectoris | | | | | ([facility]) S/P PTCA | | | | | (percutaneous | | | | | transluminal | | | | | coronary | | | | | angioplasty) Mixed | | | | | hyperlipidemia | | + +--------+ + + as of this encounter Results EKG STANDARD 12 LEAD (08/20/2017 9:56 AM) + + + + | Component [...] + + + + | Calculated R Crowell | 94 | degrees | + + + + | Calculated T Crowell | -66 | degrees | + + + + | Diagnosis | Please refer to Providers office visit note | | | | for Providers Interpretation.Confirmed by | | | | [facility], NIKOLAS Mccoy ([id number]), | | | | editor in chief Johnson Kimble ([id number]) on 08/20/2017 | | | | 10:36:28 AM | | + + + + + + + | Specimen | Performing Laboratory | + + + | | [facility] [place] [id number] | + + + in this encounter Visit Diagnoses + + | Diagnosis | + + | 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 | | (HCC) - Primary | + + | S/P PTCA (percutaneous transluminal coronary angioplasty) | + + | Postsurgical percutaneous transluminal coronary angioplasty status | + + | Dilated cardiomyopathy (HCC) | + + | Other primary cardiomyopathies | + + | Chronic atrial fibrillation (HCC) | + + | Atrial fibrillation | + + | Moderate to severe mitral regurgitation | + + | Chronic combined systolic and diastolic heart failure (HCC) | + + | Chronic combined systolic and diastolic heart failure | + + | PVD (peripheral vascular disease) (HCC) | + + | Peripheral vascular disease, unspecified | + + | Chronic obstructive pulmonary disease, unspecified COPD type (HCC) | + + | Type 2 diabetes mellitus without complication, without long-term current use of insulin | | (HCC) | + + | Mixed hyperlipidemia | + + | Encounter for monitoring digoxin therapy | + + | Encounter for therapeutic drug monitoring | + + | Anticoagulated on Coumadin | + + | Encounter for therapeutic drug monitoring | + +
--- OUTSIDE RECORDS SUMMARY | 2017-09-25 05:29 | XMS | Clinical Summary ---
Demographics + + + | Address | [address] | | | [place] [address] | + + + | Home Phone | | + + + | Preferred Language | Unknown | + + + | Marital Status | | + + + | Scientology Affiliation | Unknown | + + + | Race | White | + + + | Ethnic Group | Not or | + + + Author + + + | Author | [facility] | + + + | Organization | [facility] | + + + | Address | Unknown | + + + | Phone | Unavailable | + + + Care Team Providers + +------+ + | Care Clinical Staff Educator Name | Role | Phone | + +------+ + PP | Unavailable | + +------+ + Source Comments [facility] and [facility].Formerly [facility] Allergies Not on File Current Medications Not [...]
--- OUTSIDE RECORDS SUMMARY | 2017-09-25 05:29 | XMS | Encounter Summary ---
Demographics + + + | Address | [address] | | | [place] [address] | + + + | Home Phone | | + + + | Preferred Language | Unknown | + + + | Marital Status | | + + + | Taoism Affiliation | 1013 | + + + | Race | Unknown | + + + | Ethnic Group | Unknown | + + + Author + + + | Author | [facility] | + + + | Organization | [facility] | + + + | Address | Unknown | + + + | Phone | Unavailable | + + + Support + + + + + | Name | Relationship | Address | Phone | + + + + + | Nestor Miranda | ECON | [address] | | | | | [place] | | | | | [address] | | + + + + + Care Team Providers + +------+ + | Care Stucco Plasterer Name | Role | Phone | + +------+ + | Aaron Schwarz DO | PCP | | + +------+ + Reason for Visit + + + | Reason | Comments | + + + | Follow-up | 6 month follow up | + + + Encounter Details +--------+---------+ + + + | Date | Type | Department | Care Team | Description | +--------+---------+ + + + | 07/10/ | Office | [facility] | Jerman Geronimo, | Coronary artery | | 2018 | Visit | Cardiology [facility] | MD [address] | disease of elem | | | | [address] | [place], | artery of elem | | | | [address] | [place] [address] | heart with stable | | | | [place] [address] | [phone] | angina pectoris | | | | [phone] | | ([facility]) (Primary Dx); | | | | | | S/P PTCA | | | | | | (percutaneous | | | | | | transluminal | | | | | | coronary | | | | | | angioplasty); | | | | | | 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 | | | | | | ([facility]); Chronic | | | | | | atrial fibrillation | | | | | | ([facility]); PVD | | | | | | (peripheral vascular | | | | | | disease) ([facility]); | | | | | | Moderate to severe | | | | | | mitral | | | | | | regurgitation; | | | | | | Epistaxis, recurrent | +--------+---------+ + + + Social History [...] + + + | Blood Pressure | 92/52 | 07/10/2017 10:46 AM PST | + + + + | Pulse | 84 | 07/10/2017 10:46 AM PST | + + + + | Temperature | - | - | + + + + | Respiratory Rate | - | - | + + + + | Oxygen Saturation | 95% | 07/10/2017 10:46 AM PST | + + + + | Inhaled Oxygen | - | - | | Concentration | | | + + + + | Weight | 68.3 kg (150 lb 8 | 07/10/2017 10:46 AM PST | | | oz) | | + + + + | Height | 170.2 cm (5' 7") | 07/10/2017 10:46 AM PST | + + + + | Body Mass Index | 23.57 | 07/10/2017 10:46 AM PST | + + + + in this encounter Progress Notes Jerman Geronimo MD - 07/10/2017 10:45 AM PSTFormatting of this note may be different from the original. Subjective: Patient ID: Nestor Miranda is a 82 y.o. male. HPI The following portions of the patient's history were reviewed and updated as appropriate: a llergies, current medications, past family history, past medical history, past social histor y, past surgical history and problem list. Mr. Miranda came to the office for a 6 month follow-up visit for his CAD, chronic atrial fibr illation, dilated cardiomyopathy, chronic combined systolic/diastolic heart failure, moderat sheela severe MR, and PVD, with near occlusion of the left proximal iliac artery. He has incre ased 13.5 pounds over the last 10 months, which he states is due to "fat", with no dyspnea b eyond his baseline, and no edema. He denied chest pain, pressure or discomfort, palpitation s. He had 2 CLIFF placed in the first diagonal and ramus intermedius branches.. His SOB is mu ch improved. There is still a moderate, 65-70% stenosis in the mid RCA that was revasculari zed, and a repeat nuclear stress test 11/28/16 showed scarring, but no evidence of ischemia i n this territory. There is also no longer any evidence of transient ischemic dilatation, al though the LV is noted to be enlarged on both stress and resting images. Since his stents w ere placed he has been on warfarin (for his atrial fibrillation) and Plavix, but will stop t his at the end of his current supply, as it was almost 1 year ago, and then he will restart aspirin 81 mg daily, with written instructions given. His epistaxis has resolved, following surgical repair with a "button" for a "hole" in his nasal septum in April. His claudic ation is fairly limiting, can walk about 2 blocks at a relatively slow pace before he develo ps bilateral claudication in his calves. This is improving over time. Exercise, particular ly walking uphill to the point of pain, was strongly encouraged to help build collateral cir culation. If this fails, we can consider referral to vascular surgery. I changed him from Bystolic and Cartia XT to Coreg 25 mg bid, given his LV systolic dysfunction. He will hav e an updated echocardiogram to reassess his LV systolic dysfunction and moderately severe mi tral regurgitation. Otherwise, he seems stable at this time. I will see him back in [address] [place] [address] for follow-up. Review of Systems CONSTITUTIONAL: 17 pound weight loss since 10/2015, with a recent 6 pound weight gain in the last 3 months. He denies fever, chills, denies any night sweats or significant fatigue NEUROLOGIC: No history of CVA, TIA, migraines, seizures, syncope. No numbness, tingling , paresthesias, dizziness, lightheadedness. EYES: No amaurosis, diplopia, recent visual changes or glaucoma, has had surgery for brooklynn racts ENT: Bilateral hearing loss, denies tinnitus, epistaxis, oral thrush with mild dysphagia ENDOCRINE: Type 2 Diabetes mellitus for 10-15 years, well-controlled on medications. No his tory of thyroid disorders or other endocrine problems. No excessive hunger, thirst. PULMONARY:c/o dyspnea, with orthopnea, no PND, with a cough productive of dark brown sput um. He has a history of severe COPD, both asthma and emphysema. He had pneumonia in his early 20s, and MSSA pneumonia 09/29. Denies significant snoring, daytime somnolence. Sleep is refreshing. CARDIOVASCULAR: Denies chest pain, pressure or discomfort. Cardiac cath 07/28/16 showed multivessel CAD, with stents placed in the ramus and first diagonal branch. A moderate RCA stenosis was not revascularized. Coronary calcifications have been noted on an abdominal CT scan. There was moderate LV diastolic dysfunction noted on the hemodynamics, and mild Pulmon kristi Hypertension. 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 He has chronic atrial fibrillation, on Coumad in, CHADS2 VASc score is 4. No palpitations. No history of heart murmur, rheumatic fever. He has a long-standing history of essential Hypertension, Hyperlipidemia. He had recent development of pedal edema, but has not had this previously. Although there is evidence of P VD, he has no claudication symptoms, and walks 3 miles 5 days per week without symptoms. -- Lexiscan Cardiolite Stress Test (11/28/16): LV enlargement, with no TID. There is scarrin g in the inferolateral and lateral segments, with no evidence of ischemia. Hypokinesis of th e inferolateral and lateral segments,EF 35% on resting images, 42% on stress images. -- R/L Cardiac Cath (07/28/16): RA-7, PA-47/22, mean 31, PCW-23, LVEDP-24, CO-3.67, CI-2.1. LM-distal 20-25%, LAD-normal. D1-long 90-99% > 2.25x20 Promus Premier CLIFF; Ramus- prox 75% > 2.75x28 Promus Premier CLIFF. LCx-small, non-dominant, normal. RCA-dominant, mid 65-70%, dis irma 35-40%. LVEF 30-35%, 2+MR -- Echo (07/12/16): EF 35-40% (unchanged from 09/27/15, but was previously normal in 2011), n ormal RV size/function, moderately severe MR, mild-moderate TR (both increased from prior st udies), borderline pulmonary HTN, RVSP 36.9 mm Hg -- Lexiscan Myoview Stress Test (07/12/16): ST-T abnormalities with Lexiscan infusion, but n o clear evidence of myocardial scarring or ischemia on myocardial SPECT perfusion imaging. H owever, there is transient ischemic dilatation of the left ventricle, which is a high risk f eature. -- 48 hour Holter monitor (10/25/15): Atrial fibrillation was present throughout the entire d ay recording, a well-controlled ventricular rate. There were rare PVCs -- Echo (09/27/[facility]): moderate global hypokinesis, EF35-40%, marked LAE , mild BIANCA, mild RV systolic dysfunction, moderate MR, mild TR. Mild pulmonary hypertension, with a peak right ventricular systolic pressure 42-47 mmHg. -- Echo (08/03/11): EF 60-65%, mild basal inferolateral hypokinesis. Diastolic dysfunction. Mild LAE. Mild AI, MR, TR. No evidence of pulmonary hypertension. -- Cardiac cath (01/28/04) has been: No significant CAD, normal LV systolic function (done a fter a false positive nuclear stress test). GASTROINTESTINAL: He has occasional fleeting epigastric pains, No current abdominal pain, nausea, vomiting or diarrhea. Denies PUD, melena, hematochezia, but in the past has noted d ark stools, none recently. There is no history of hepatitis. Diverticular disease affecting the sigmoid colon was noted on his abdominal CT scan at [place]. GENITOURINARY: Mild chronic kidney disease, with evidence of renal cortical thinning on a CT scan, but relatively normal renal function. He had a kidney stone extracted last year. N o dysuria, hematuria, urinary urgency, hesitancy. He denies significant nocturia. HEMATOLOGY/ONCOLOGY: No h/o bleeding disorders, DVT, PE. Denies easy bruisability or bleeding. No history of anemia, transfusions. No history of cancer. MUSCULOSKELETAL: No myalgias, but has arthritis with arthralgias of the hands. No histo ry of rheumatologic or autoimmune diseases. CUTANEOUS: No rashes, pruritus, lesions. PSYCHIATRIC: No history of depression, anxiety or other psychiatric problems. Past Medical History Diagnosis Date Arrhythmia Asthma Atrial fibrillation (HCC) Chronic, CHADS2 VASc 4 CHF (congestive heart failure) ([facility]) Chronic kidney disease Mild, although renal cortical thinning is noted on an abdominal CT COPD (chronic obstructive pulmonary disease) ([facility]) Asthma and emphysema Coronary artery disease multivessel CAD Diabetes mellitus type II Dilated cardiomyopathy (HCC) Gout Hyperlipidemia Hypertension Moderate mitral regurgitation Pulmonary hypertension, secondary Mild S/P PTCA (percutaneous transluminal coronary angioplasty) 07/28/2016 D1 - 2.25x20 Promus Premier CLIFF; Ramus - 2.75x28 Promus Premier CLIFF Thrush, oral Past Surgical History Procedure Laterality Date CATARACT EXTRACTION Bilateral CORONARY ANGIOPLASTY 07/28/2016 D1 - 2.25x20 Promus Premier CLIFF; Ramus - 2.75x28 Promus Premier CLIFF FINGER AMPUTATION Right finger JOINT FUSION - METATARSAL PHALANGEAL Right thumb KIDNEY STONE SURGERY 2014 ROTATOR CUFF REPAIR Bilateral Twice on the right, once on the left TONSILLECTOMY 1956 Family History Problem Relation Age of Onset Breast cancer Mother 62 Coronary Artery Disease Father 54 Coronary Artery Disease Brother 58 Gastric cancer Sister reports that he quit smoking about 20 years ago. His smoking use included Cigarettes. He h as a 80.00 pack-year smoking history. He has never used smokeless tobacco. He reports that h e drinks about 1.2 oz of alcohol per week . He reports that he does not use drugs. No Known Allergies Current Outpatient Prescriptions: allopurinol (ZYLOPRIM) 100 MG tablet, Take 100 mg by mouth daily. , Disp: , Rfl: arformoterol (BROVANA) 15 MCG/2ML NEBU, Take 15 mcg by nebulization 2 (two) times matthew y., Disp: , Rfl: atorvastatin (LIPITOR) 40 MG tablet, Take 1 tablet by mouth daily., Disp: 30 tablet, R fl: 11 budesonide (PULMICORT) 0.5 MG/2ML nebulizer suspension, Take 0.5 mg by nebulization 2 (two) times daily., Disp: , Rfl: Cholecalciferol 2000 UNITS CAPS, Take by mouth., Disp: , Rfl: clopidogrel (PLAVIX) 75 MG tablet, Take 1 tablet by mouth daily., Disp: 30 tablet, Rfl : 11 Coenzyme Q-10 100 MG capsule, Take 100 mg by mouth daily., Disp: , Rfl: diltiazem (CARDIZEM CD) 240 MG 24 hr capsule, Take 240 mg by mouth daily., Disp: , Rfl : fish oil-omega-3 fatty acids 1000 MG capsule, Take 2 g by mouth daily. , Disp: , Rfl: glipiZIDE (GLUCOTROL) 5 MG tablet, Take 5 mg by mouth daily., Disp: , Rfl: ipratropium (ATROVENT) 0.02 % nebulizer solution, Take 0.5 mg by nebulization 4 (four) times daily. , Disp: , Rfl: losartan (COZAAR) 50 MG tablet, Take 50 mg by mouth daily., Disp: , Rfl: montelukast (SINGULAIR) 10 MG tablet, Take 10 mg by mouth nightly., Disp: , Rfl: Multiple Vitamins-Minerals (MULTIVITAMIN WITH MINERALS) tablet, Take 1 tablet by mouth daily., Disp: , Rfl: nebivolol (BYSTOLIC) 10 MG tablet, Take 1 tablet by mouth daily., Disp: 30 tablet, Rfl : 11 nitroGLYCERIN (NITROSTAT) 0.4 MG SL tablet, Place 1 tablet under the tongue every 5 (f mony) minutes as needed for Chest pain., Disp: 90 tablet, Rfl: 12 potassium chloride (K-DUR) 10 MEQ tablet, Take 1 tablet by mouth 2 (two) times daily w ith meals., Disp: 90 tablet, Rfl: 11 roflumilast (DALIRESP) 500 MCG tablet, Take 500 mcg by mouth daily., Disp: , Rfl: torsemide (DEMADEX) 10 MG tablet, Take 1 tablet by mouth daily., Disp: 30 tablet, Rfl: 11 warfarin (COUMADIN) 3 MG tablet, Take 3 mg by mouth daily., Disp: , Rfl: Objective: Physical Exam BP 92/52 (BP Location: Left upper arm, Patient Position: Sitting) | Pulse 84 | Ht 1.702 m (5' 7") | Wt 68.3 kg (150 lb 8 oz) | SpO2 95% | BMI 23.57 kg/m GENERAL: Well developed, well nourished, elderly male in mild respiratory distr ess. Appears approximately stated age. HEENT: Normocephalic, atraumatic. He has poor hearing. EYES: Well-healed iridectomies. PERRL, sclerae anicteric, no xanthelsasmas MOUTH: Oral mucosae dry, dentition adequate, no lesions noted NECK: No JVD, lymphadenopathy, thyromegaly, bruits. Carotid pulses are 2+ bilateral ly LUNGS: Mildly, diffusely decreased breath sounds bilaterally, otherwise clear, respiratio ns unlabored HEART: Nonpalpable PMI, regular rate, irregularly irregular rhythm, S1 is varied in inten sity, S2 normal. No murmurs, rubs or gallops noted. ABDOMEN: Soft, nontender, no organomegaly, masses or bruits. Bowel sounds are normal in all 4 quadrants. The abdominal aortic pulsation is not palpable. EXTREMITIES: Left pretibial erythema, extending to the dorsum of the left foot. The skin is tight. 1+ right-sided pedal edema, 2+ on the left, 1/3 way to the knee. Tinea unless of t he toenails, toenails of the big toes are stained purple from treatment. Radial pulses 2+ bi laterally. Femoral pulses are1+, high on the right side, nonpalpable on the left, without bruits. DP and PT pulses are faintly palpable bilaterally. SKIN: Warm and dry, capillary refill is normal, no lesions. NEUROLOGIC: Awake, alert and oriented x 3. No focal motor deficits. PSYCHIATRIC: Appropriate, affect appears normal Assessment and Plan: Nestor was seen today for follow-up. 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 (HCC) S/P PTCA (percutaneous transluminal coronary angioplasty) Dilated cardiomyopathy (HCC) Chronic atrial fibrillation ([facility]) PVD (peripheral vascular disease) ([facility]) Moderate to severe mitral regurgitation Epistaxis, recurrent in this encounter Plan of Treatment +--------+---------+ + + + | Date | Type | Specialty | Care Team | Description | +--------+---------+ + + + | 10/23/ | Office | Cardiology | Jerman Geronimo, | | | 2017 | Visit | | MD [address] | | | | | | [place], | | | | | | [place] [address] | | | | | | [phone] | | | | | | | | +--------+---------+ + + + as of this encounter Results ECHO outside interpretation standard (08/03/2017 10:52 AM) + + + | Specimen | Performing Laboratory | + + + | | [address] [address] | + + + + + | [...] from the previous | | study. 4. Gdltuvlj-bw-duoowd mitral regurgitation is present, predominately an | | eccentric, posteriorly directed jet, unchanged from the previous study. 5. There is | | borderline pulmonary hypertension, unchanged from the previous study. | + + + + | Narrative | + + | Patient Name: Nestor Miranda Date of : 1935 | | Performing [...] enlarged, unchanged from the previous study. 4. Vdvkvyqf-ne-ngpevf | | mitral regurgitation is present, predominately [...] to be m | | Mitral Valve: gethonk-hi-mgcqja mitral regurgitation, predominately an eccentric, | | [...] mmHg TR Vmax: | | 2.80 m/s Tub Attendant: Authenticated by: Jerman Geronimo Report Date/Time: | | 08-03-2017 11:33:16 | + + + + | Procedure Note | + + | Ross Newell Results In - 08/03/2017 11:40 AM PST Patient Name: Phill Miranda of | | : 5Accession: [id number] Physician: Jerman M. | | Lehr INDICATIONS | | -CardiomyopathyCONCLUSIONS [...] | enlarged, unchanged from the previous study.4. Oagecivj-fr-wjqyie mitral regurgitation | | is present, predominately [...] to be m Mitral | | Valve: douppdn-ux-vphoct mitral regurgitation, predominately an eccentric, posteriorly | [...] cmLVPWd: 0.95 | | cmLVOT Area: 3.71 [id number] Diam: 2.17 cm%FS: 17.23 %EF(Teich): 35.78 | [...] (A-L): 43.22 ml/m2LAAs A2C: 23.19 | | dm7JPVZC A-L A2C: 80.31 mlLALs A2C: 5.68 cmLAAs A4C: 21.60 fa5VVWIT A-L A4C: | | 70.83 mlLALs A4C: 5.59 cmRAAs: 22.56 zk4ONCDQ A-L: 73.39 mlRAESV MOD: 70.66 | | mlRALs: 5.88 cmTAPSE: 2.28 cmAV maxP.18 mmHgAV meanP.07 mmHgAV Vmax: | | 1.23 m/Judson Vmean: 0.82 m/Judson VTI: 19.35 cmAVA Vmax: 1.98 cm2AVA (VTI): 1.93 | | cc9ONKE Vmax: 0.00 cm2/m2AVAI (VTI): 0.00 cm2/m2LVOT maxP.75 mmHgLVOT meanPG: | | 0.93 mmHgLVSI Dopp: 21.26 ml/m2LVSV Dopp: 37.42 mlLVOT Vmax: 0.66 m/sLVOT Vmean: | | 0.45 m/sLVOT VTI: 10.06 cmMV A Herrera: 0.04 m/sMV DecT: 167.58 msMV E Herrera: 0.77 | | m/sMV E/A Ratio: 18 MV PHT: 48.60 msMVA By PHT: 4.52 bq8Dqxthj e': 0.06 | | m/sSeptal E/e': 12.48 [...] unchanged from the previous study.4. | | Wwkdgdvg-aq-cxqxpk mitral regurgitation is present, predominately an eccentric, [...] |TR Vmax: 2.80 m/s | | | |Tub Attendant: | |Authenticated by: Jerman Geronimo | |Report [...] unchanged from the previous study. | |4. Jmyzgodd-hu-xwnedw mitral regurgitation is present, predominately an eccentric, posterio rly directed jet, unchanged from the previous study. | |5. There is borderline pulmonary hypertension, unchanged from the previous study. 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
--- OUTSIDE RECORDS SUMMARY | 2017-09-25 05:29 | XMS | Encounter Summary ---
Demographics + + + | Address | [address] | | | [place] [address] | + + + | Home Phone | | + + + | Preferred Language | Unknown | + + + | Marital Status | | + + + | Confucianist Affiliation | 1013 | + + + | Race | Unknown | + + + | Ethnic Group | Unknown | + + + Author + + + | Author | [facility] | + + + | Organization | [facility] | + + + | Address | Unknown | + + + | Phone | Unavailable | + + + Support + + + + + | Name | Relationship | Address | Phone | + + + + + | Nestor Miranda | ECON | [address] | | | | | [place] | | | | | [address] | | + + + + + Care Team Providers + +------+ + | Care Operating Cost Clerk Name | Role | Phone | + +------+ + | Aaron Schwarz DO | PCP | | + +------+ + Reason for Visit +--------+ + | Reason | Comments | +--------+ + | Other | | +--------+ + Encounter Details +--------+ + + + + | Date | Type | Department | Care Team | Description | +--------+ + + + + | 08/06/ | Documentati | [facility] | Krystle Baez MA | Other | | 2018 | on Only | Cardiology [facility] | | | | | | [address] | | | | | | [place] | | | | | | [address] | | | | | | [phone] | | | +--------+ + + + [...] | | 2018 | Visit | | [address] | | | | | | [place], | | | | | | [place] [address] | | | | | | [phone] | | | | | | | | +--------+---------+ + + + as of this encounter Visit Diagnoses Not on filein this encounter"
--- OUTSIDE RECORDS SUMMARY | 2017-09-25 05:29 | XMS | Encounter Summary ---
Demographics + + + | Address | [address] | | | [place] [address] | + + + | Home Phone | | + + + | Preferred Language | Unknown | + + + | Marital Status | | + + + | Samaritan Affiliation | 1013 | + + + | Race | Unknown | + + + | Ethnic Group | Unknown | + + + Author + + + | Author | [facility] | + + + | Organization | [facility] | + + + | Address | Unknown | + + + | Phone | Unavailable | + + + Support + + + + + | Name | Relationship | Address | Phone | + + + + + | Nestor Miranda | ECON | [address] | | | | | [place] | | | | | [address] | | + + + + + Care Team Providers + +------+ + | Care Chief Controller Center Name | Role | Phone | + +------+ + | Aaron Schwarz DO | PCP | | + +------+ + Encounter Details +--------+ + + + + | Date | Type | Department | Care Team | Description | +--------+ + + + + | 07/30/ | Orders Only | [facility] | Jerman Geronimo, | | | 2018 | | Maikel Dai | [address] | | | | | [address] | [place] | | | | | [place] | [place] [address] | | | | | [address] | [phone] | | | | | [phone] | | | +--------+ + + + [...] + + + as of this encounter Progress Notes Jerman Geronimo MD - 07/30/2017 4:18 PM CAYETANO received a written record from Nestor. He do es not seem to be tolerating carvedilol very well, and I will change him to Ziac 10/6.25 mg daily to see if this helps, given that he is on Brovana and budesonide, he may do better wit h a more beta-1 selective agentin this encounter Plan of Treatment +--------+---------+ + + + | Date | Type | Specialty | Care Team | Description | +--------+---------+ + + + | 10/23/ | Office | Cardiology | Jerman Geronimo, | | | 2018 | Visit | | MD [address] | | | | | | [place], | | | | | | [place] [address] | | | | | | [phone] | | | | | | | | +--------+---------+ + + + as of this encounter Visit Diagnoses Not on filein this encounter"
--- OUTSIDE RECORDS SUMMARY | 2017-09-25 05:29 | XMS | Encounter Summary ---
Demographics + + + | Address | [address] | | | [place] [address] | + + + | Home Phone | | + + + | Preferred Language | Unknown | + + + | Marital Status | | + + + | Spiritism Affiliation | 1013 | + + + | Race | Unknown | + + + | Ethnic Group | Unknown | + + + Author + + + | Author | [facility] | + + + | Organization | [facility] | + + + | Address | Unknown | + + + | Phone | Unavailable | + + + Support + + + + + | Name | Relationship | Address | Phone | + + + + + | Nestor Miranda | ECON | [address] | | | | | [place] | | | | | [address] | | + + + + + Care Team Providers + +------+ + | Care Photoengraving Proofer Apprentice Name | Role | Phone | + +------+ + | Aaron Schwarz DO | PCP | | + +------+ + Reason for Visit +--------+ + | Reason | Comments | +--------+ + | Other | [facility] | +--------+ + Encounter Details +--------+ + + + + | Date | Type | Department | Care Team | Description | +--------+ + + + + | 07/25/ | Documentati | [facility] | Liliya Villalta N, | Other ( [facility] | | 2018 | on Only | [facility] | YAMILA | Maicol) | | | | [address] | | | | | | [place], [place] | | | | | | [address] | | | | | | [phone] | | | +--------+ + + + [...] | | | | | | [place] [address] | | | | | | [phone] | | | | | | | | +--------+---------+ + + + as of this encounter Results CBC W/Auto Diff (Reflex to Manual) (07/24/2017 [...] + + | Blood | [facility] [address] [place] [address] | | | [id number] | + + + Digoxin (07/24/2017 7:37 AM) + +---------+ + | Component | Value | Ref Range | + +---------+ + | DIGOXIN LEVEL | 0.2 (A) | 0.8 - 2.0 | + +---------+ + + + + | Specimen | Performing Laboratory | + + + | Blood | [facility] [address] [place] [address] | | | [address] | + + + TSH (07/24/2017 7:37 AM) + +-------+ + | Component | Value | Ref Range | + +-------+ + | TSH | 2.39 | 0.270 - 4.20 uIU/mL | + +-------+ + + + + | Specimen | Performing Laboratory | + + + | Blood | [facility] [address] [place] [address] | | | [address] | + + + Comprehensive metabolic panel [...] + + | Blood | [facility] [address] [place], [place] [address] | | | [address] | + + + Lipid panel (07/24/2017 [...] | + + + | Blood | [facility] [address] [place], [place] [address] | | | [address] | + + + in this encounter Visit Diagnoses Not on filein this encounter"
--- OUTSIDE RECORDS SUMMARY | 2017-09-25 05:29 | XMS | Encounter Summary ---
Demographics + + + | Address | [address] | | | [place] [address] | + + + | Home Phone | | + + + | Preferred Language | Unknown | + + + | Marital Status | | + + + | Samaritan Affiliation | 1013 | + + + | Race | Unknown | + + + | Ethnic Group | Unknown | + + + Author + + + | Author | [facility] | + + + | Organization | [facility] | + + + | Address | Unknown | + + + | Phone | Unavailable | + + + Support + + + + + | Name | Relationship | Address | Phone | + + + + + | Nestor Miranda | ECON | [address] | | | | | [place] | | | | | [address] | | + + + + + Care Team Providers + +------+ + | Care Santa'S Helper Name | Role | Phone | + [...] + | 09/07/ | Refill | [facility] [place] | Jerman Geronimo, | Medication Refill | | 2018 | | Cardiology [place] | [address] | | | | | [address] | [place], | | | | | [facility] [address] | [place] [address] | | | | | [place] [address] | [phone] | | | | | [phone] | | | +--------+--------+ + + + [...] | | | | | | [place] [address] | | | | | | [phone] | | | | | | | | +--------+---------+ + + + as of this encounter Visit Diagnoses Not on filein this encounter"
--- OUTSIDE RECORDS SUMMARY | 2017-09-25 05:29 | XMS | Encounter Summary ---
Demographics + + + | Address | [address] | | | [place] [address] | + + + | Home Phone | | + + + | Preferred Language | Unknown | + + + | Marital Status | | + + + | Hinduism Affiliation | 1013 | + + + | Race | Unknown | + + + | Ethnic Group | Unknown | + + + Author + + + | Author | [facility] | + + + | Organization | [facility] | + + + | Address | Unknown | + + + | Phone | Unavailable | + + + Support + + + + + | Name | Relationship | Address | Phone | + + + + + | Nestor Miranda | ECON | [address] | | | | | [place] | | | | | [address] | | + + + + + Care Team Providers + +------+ + | Care Shrimping Boat Captain Name | Role | Phone | + +------+ + | Aaron Harman DO | PCP | | + +------+ + Reason for Visit + + + | Reason | Comments | + + + | Consultation | | + + + Encounter Details +--------+---------+ + + + | Date | Type | Department | Care Team | Description | +--------+---------+ + + + | 02// | Office | [facility] [place] | Tiffani Reyna | Coronary artery | | 2018 | Visit | [facility] [place] | NIYAH [address] | disease of [place] | | | | [address] | Nadine Perez F | artery of [place] | | | | [address] | [place] [address] | heart with stable | | | | [place] [address] | [phone] | angina pectoris | | | | [phone] | | ([facility]) (Primary Dx); | | | | | | S/P PTCA | | | | | | (percutaneous | | | | | | transluminal | | | | | | coronary | | | | | | angioplasty); | | | | | | 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 | | | | | | ([facility]); Chronic | | | | | | atrial fibrillation | | | | | | ([facility]); Moderate to | | | | | | severe mitral | | | | | | regurgitation; | | | | | | 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 ([facility]); PVD | | | | | | (peripheral vascular | | | | | | disease) ([facility]); | | | | | | Chronic obstructive | | | | | | pulmonary disease, | | | | | | unspecified COPD | | | | | | type ([facility]) | +--------+---------+ + + + Social History [...] + + + | Blood Pressure | 94/54 | 07/23/2017 3:15 PM PST | + + + + | Pulse | 96 | 07/23/2017 3:15 PM PST | + + + + | Temperature | - | - | + + + + | Respiratory Rate | 20 | 07/23/2017 3:15 PM PST | + + + + | Oxygen Saturation | 96% | 07/23/2017 3:15 PM PST | + + + + | Inhaled Oxygen | - | - | | Concentration | | | + + + + | Weight | 67.2 kg (148 lb 1.6 | 07/23/2017 3:15 PM PST | | | oz) | | + + + + | Height | 170.2 cm (5' 7") | 07/23/2017 3:15 PM PST | + + + + | Body Mass Index | 23.2 | 07/23/2017 3:15 PM PST | + + + + in this encounter Instructions Patient Instructions - Tiffani Reyna ARNP - 07/23/2017 3:00 PM PSTStart Aspirin as soon as Plavix done, Take 81 mg Consider stopping Fish oil to help with bruising Continue taking Torsemide 20 mg daily until you see me back I have ordered you fasting labs to be done at [facility] I have added Digoxin 125 mcg to your medications and can take it in the morning See me back in one month in this encounter Progress Notes Tiffani Reyna ARNP - 07/23/2017 3:00 PM PSTFormatting of this note may be differen t from the original. Date of visit: 07/23/2017 Primary Care Physician: AARON HARMAN CHIEF COMPLAINT: Chief Complaint Patient presents with Consultation HISTORY OF PRESENT ILLNESS: Mr. Nestor Miranda is an 82-year-old man who is here today for urgent follow-up at the [facility] of Dr. Geronimo for reports of increased fluid retention and dyspnea July 19, and told by Dr. Geronimo to follow-up with me and double his dose of torsemide. He thought that carvedilol was a better medication for him than diltiazem and Bystolic for his weakened heart function . He is accompanied today by his contributed to history. He was last seen by Dr. Geronimo on July 10, 2017 and I reviewed his note today. 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 The Plavix Will stopped when one year post-stenting, and has 10 pills left and he wa s to continue on with aspirin and warfarin. His last stress test was done in August 2016 and with an abnormal moderate risk test with l ateral and inferolateral scarring but no evidence of ischemia, and there was mild to modera te LV systolic dysfunction with the stress EF of 42 percent. He has had another Echo ordered. His previous echo done in June 2016 had shown an EF o f 35-40 percent which was stable and an RV that was normal in size and function and increase in mitral regurgitation to moderate to severe and mild to moderate tricuspid regurgitation which had previously been mild and borderline pulmonary hypertension, which had improved His EKG done in the office today shows atrial fib with RVR at 105 bpm. He reports feeling of bloating improved with extra torsemide, and spacing medications out . He brought all of his medications to the visit today and I reviewed them with him personal ly. He reports that he tries to walk in [place] 3-4 times per week and come walk with cart one to 2 times around the store, but cannot tolerate walking uphill or for any great distance. He denies claudication today, but does report his legs are weak. He denies any chest pain, has ongoing dyspnea which has improved with increased dose of diu retic, but denies any dizziness or syncope. He also denies any signs or symptoms of stroke or transient ischemic attack REVIEW OF SYSTEMS: Negative except for pertinent items noted in HPI. Constitutional: Denies fatigue or unexplained weight loss. Appetite is good. Weight is st able. Denies night sweats fevers or chills HENT: Denies nosebleeds. Positive for bilateral hearing loss, positive for mild dysphagia Eyes: Denies visual disturbance or double vision. Respiratory/Sleep:: Complaint of dyspnea with orthopnea, denies PND. History of COPD, asth ma and emphysema. Denies snoring Denies cough and shortness of breath. Denies hemoptysis o r excessive sputum production. Denies snoring, orthopnea, PND. Cardiovascular: Positive for Mild pedal edema Denies [...] illicit drug use. Exercises with walking in [employer] 2-3 time s per week, can go to times around the store and tolerates. . Lives in [place]. Outpatient Medications Prior to Visit Medication Sig Dispense Refill allopurinol (ZYLOPRIM) 100 MG tablet Take 100 mg by mouth daily. arformoterol (BROVANA) 15 MCG/2ML NEBU Take 15 mcg by nebulization 2 (two) times daily. atorvastatin (LIPITOR) 40 MG tablet Take 1 tablet by mouth daily. (Patient taking diffe rently: Take 40 mg by mouth twice a week. Takes 1 pill twice a week , as had myalgias when t ook daily) 30 tablet 11 budesonide (PULMICORT) 0.5 MG/2ML nebulizer suspension Take 0.5 mg by nebulization 2 (t wo) times daily. carvedilol (COREG) 25 MG tablet Take 1 tablet by mouth 2 (two) times daily. This medica tion will replace both Cartia XT (diltiazem) and Bystolic (Nebivolol) 60 tablet 11 Cholecalciferol 2000 UNITS CAPS Take 1,000 Units by mouth. clopidogrel (PLAVIX) 75 MG tablet Take 1 tablet by mouth daily. (Patient taking differe ntly: Take 75 mg by mouth daily. Stop taking this medication at the end of the current suppl y, then start aspirin 81 mg daily) 30 tablet 11 Coenzyme Q-10 100 MG capsule Take 100 mg by mouth daily. fish oil-omega-3 fatty acids 1000 MG capsule Take 2 g by mouth daily. glipiZIDE (GLUCOTROL) 5 MG tablet Take 5 mg by mouth daily. ipratropium (ATROVENT) 0.02 % nebulizer solution Take 0.5 mg by nebulization 4 (four) t imes daily. losartan (COZAAR) 50 MG tablet Take 50 [...] tablet Take 3 mg by mouth daily. torsemide (DEMADEX) 10 MG tablet Take 1 tablet by mouth daily. (Patient taking differen tly: Take 20 mg by mouth daily.) 30 tablet 11 aspirin 81 MG tablet Take 81 mg by mouth daily. Start taking this when you have finishe d current Plavix supply No facility-administered medications prior to visit. PHYSICAL EXAM: Wt Readings from Last 3 Encounters: 07/23/17 67.2 kg (148 lb 1.6 oz) 07/10/17 68.3 kg (150 lb 8 oz) 12/07/16 64.9 kg (143 lb) Temp Readings from Last 3 Encounters: 07/29/16 97.6 F (36.4 C) (Oral) 11/01/15 98.9 F (37.2 C) (Tympanic) 10/20/15 97.3 F (36.3 C) (Oral) BP Readings from Last 3 Encounters: 07/23/17 94/54 07/10/17 92/52 12/07/16 112/68 Pulse Readings from Last 3 Encounters: 07/23/17 96 07/10/17 84 12/07/16 74 GENERAL: Well developed, well nourished, in no [...] tests: Lab Results Component Value Date WBC 9.07 07/29/2016 RBC 4.53 07/29/2016 HGB 13.8 07/29/2016 HCT 40.7 07/29/2016 PLT 158 07/29/2016 Lab Results Component Value Date NA 140 07/29/2016 K 3.3 (L) 07/29/2016 CL 106 07/29/2016 CO2 25 07/29/2016 ANIONGAP 14 07/29/2016 GLUF 104 (H) 07/29/2016 BUN 15 07/29/2016 CREATININE 0.82 07/29/2016 BCR 18 07/29/2016 CA 8.5 07/29/2016 EGFR >60 07/29/2016 Lab Results Component Value Date GLUF 104 (H) 07/29/2016 HGBA1C 7.8 (H) 10/01/2015 Lab Results Component Value Date BNP 260 (H) 09/30/2015 CKTOTAL 78 07/29/2016 CRP 9.3 (A) 10/18/2015 No results found for: METF, NMETFX, TFNMFX, [id number], [id number], TOTEPI IMAGING /PROCEDURES ; Last Lexiscan Cardiolite [...] false positive nuclear stress test). ECHO: Last Echo (07/12/16): EF 35-40% (unchanged from 09/27/15, but was previously normal in 2011) , normal RV size/function, moderately severe MR, mild-moderate TR (both increased from prior studies), borderline pulmonary HTN, RVSP 36.9 mm Hg Echo (09/27/15-[facility]): moderate global hypokinesis, EF 35-40%, marked LAE, [...] ms, QTC 443 ms, personally reviewed by me [email or web address]. Atrial fibrillation, nonspecific ST abnormality. Rate 80 bpm, QRS 90 ms, QTC 481 ms(post stenting), personally reviewed by me [email or web address]: Atrial fibrillation RVR, nonspecific T-wave abnormality to lateral and infe rior leads , rate 105 bpm, QRS 90 ms, QTC 449 ms, personally reviewed by me and weight has i ncreased significantly since last EKG done in July 2006 LABS: Labs: 07/06: BMP: Sodium 142, potassium 3.8, chloride 98, glucose 116, BUN 19, creatin ine 1.02, GFR 70, BNP 617 Labs: 2016: CBC: WBC 9.07, hemoglobin 13.8, hematocrit 40.7, platelets 158 ASSESSMENT & PLAN: He was here today with his for urgent follow up with c/o increased abdominal bloating , and shortness of breath. He reports his symptoms have improved with increased diuretic , and also with spacing his medications out more. Unfortunately , his EKG today shows Afib with RVR at 105 bpm, and blood pressure also lowe r with systolic pressure 94, likely due to los of atrial kick and decreased cardiac output. He also has some pedal edema , despite increased diuretic . I have added small dose of digoxin to carvedilol to help with rate control, continued Tor semide 20 mg for now , and reminded him to start ASA 81 mg once Plavix finished , and sugges honey stopping Fish oil to help decreased bruising as also inhibits platelets. I discussed with Dr. Geronimo, and he thinks Bystolic still not the right medication for him For his other cardiac medications, I have continued Lipitor, though he tells me he is only taking it twice a week, Carvedilol 25 mg BID, Losartan 50 mg daily, potassium 10 mEq BID, a nd coumadin for target INR 2-3. I have ordered him a digoxin level, CMP, CBC, and TSH to ensure no other etiology for incr eased Afib , and will see him back in one month. He will follow up again with Dr. Geronimo in October , and will be getting his Echo done soon as barbara spears. 1. Coronary artery disease of [place] artery of [place] heart with stable angina pectoris (HC C) 2. S/P PTCA (percutaneous transluminal coronary angioplasty) 3. Dilated cardiomyopathy (HCC) 4. Chronic atrial fibrillation ([facility]) 5. Moderate to severe mitral regurgitation 6. Chronic combined systolic and diastolic heart failure ([facility]) 7. PVD (peripheral vascular disease) ([facility]) 8. Chronic obstructive pulmonary disease, unspecified COPD type ([facility]) 9. Type 2 diabetes mellitus without complication, without long-term current use of insulin ([facility]) 10. Mixed hyperlipidemia 11. Encounter for monitoring digoxin therapy Orders Placed This Encounter Procedures Digoxin level Comprehensive metabolic panel CBC W/Auto Diff (Reflex to Manual) TSH Lipid panel Electrocardiogram, 12-lead The following portions of the patient's history were personally reviewed by me and updated as appropriate: EKG tracings, other specialty provider and PCP notes,any Hospital admission and discharge summaries, any ER records , current and previous cardiac testing and procedure reports and d carli, medication bottles brought to visit today personally reviewed by me. Allergies, current medications.labs Family history, past medical history, past social history, past surgical history. Problem list. NIYAH [facility] Cardiology 07/23/2017in this encounter Plan of Treatment +--------+---------+ + + + | Date | Type | Specialty | Care Team | Description | +--------+---------+ + + + | 10/23/ | Office | Cardiology | Jerman Geronimo, | | | 2017 | Visit | | [address] | | | | | | [place], | | | | | | [place] [address] | | | | | | [phone] | | | | | | | | +--------+---------+ + + + + +--------+ + + | Name | Priori | Associated Diagnoses | Order Schedule | | | ty | | | + +--------+ + + | Digoxin level | Routin | Coronary artery | Expected: | | | e | disease of [place] | 07/23/2017, Expires: | | | | artery of [place] | 07/23/2018 | | | | heart with stable | | | | | angina pectoris | | | | | ([facility]) S/P PTCA | | | | | (percutaneous | | | | | transluminal | | | | | coronary | | | | | angioplasty) | | | | | Chronic atrial | | | | | fibrillation ([facility]) | | | | | Encounter for | | | | | monitoring digoxin | | | | | therapy | | + +--------+ + + | CBC W/Auto Diff (Reflex to | Routin | Chronic atrial | Expected: | | Manual) | e | fibrillation ([facility]) | 07/23/2017, Expires: | | | | Chronic combined | 07/23/2018 | | | | systolic and | | | | | diastolic heart | | | | | failure (HCC) | | + +--------+ + + | TSH | Routin | Chronic atrial | Expected: | | | e | fibrillation (HCC) | 07/23/2017, Expires: | | | | | 07/23/2018 | + +--------+ + + as of this encounter Results EKG STANDARD 12 LEAD (07/23/2017 3:22 PM) + + + + | Component | Value | Ref Range | + + + + | Ventricular Rate | 105 | BPM | + + + + | Atrial Rate | 375 | BPM | + + + + | QRS Duration | 90 | ms | + + + + | Q-T Interval | 340 | ms | + + + + | QTC Calculation | 449 | ms | | (Bezet) | | | + + + + | Calculated R Lyons | 89 | degrees | + + + + | Calculated T Lyons | -38 | degrees | + + + + | Diagnosis | Please refer to Providers office visit note | | | | for Providers Interpretation.Confirmed by | | | | [facility], NIKOLAS Mccoy ([id number]), | | | | news assignment editor Johnson Kimble ([id number]) on 07/23/2017 | | | | 3:38:03 PM | | + + + + + + + | Specimen | Performing Laboratory | + + + | | [facility] [address] [place] [id number] | + + + in this encounter Visit Diagnoses + + | Diagnosis | + + | Coronary artery disease of [place] artery of [place] heart with stable angina pectoris | | (HCC) - Primary | + + | S/P PTCA (percutaneous transluminal coronary angioplasty) | + + | Postsurgical percutaneous transluminal coronary angioplasty status | + + | Dilated cardiomyopathy ([facility]) | + + | Other primary cardiomyopathies | + + | Chronic atrial fibrillation (HCC) | + + | Atrial fibrillation | + + | Moderate to severe mitral regurgitation | + + | Chronic combined systolic and diastolic heart failure (HCC) | + + | Chronic combined systolic and diastolic heart failure | + + | PVD (peripheral vascular disease) ([facility]) | + + | Peripheral vascular disease, [...]
--- OUTSIDE RECORDS SUMMARY | 2017-09-25 05:29 | XMS | Clinical Summary ---
Demographics + + + | Address | [address] | | | [place] [address] | + + + | Home Phone | | + + + | Preferred Language | Unknown | + + + | Marital Status | | + + + | Cheondoism Affiliation | 1013 | + + + | Race | Unknown | + + + | Ethnic Group | Unknown | + + + Author + + + | Author | [facility] [facility] | + + + | Organization | [facility] [facility] | + + + | Address | Unknown | + + + | Phone | Unavailable | + + + Support + + + + + | Name | Relationship | Address | Phone | + + + + + | Nestor Yanez | ECON | [address] | | | | | [place] | | | | | [address] | | + + + + + Care Team Providers + +------+ + | Care Director Of Placement Name | Role | Phone | + [...] | 2018 | on Only | | [facility] | diary, medications, | | | | | | bp) | +--------+ + + + + | 08/20/ | Office | | Tiffani Reyna | 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 | | NIYAH Sarkar | 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 | | | | | | ([facility]) (Primary Dx); | | | | | | S/P PTCA | | | | | | (percutaneous | | | | | | transluminal | | | | | | coronary | | | | | | angioplasty); | | | | | | 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 | | | | | | ([facility]); Chronic | | | | | | atrial fibrillation | | | | | | ([facility]); Moderate to | | | | | | severe mitral | | | | | | regurgitation; | | | | | | 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 | | | | [...] cardiomyopathy | | | | | | ([facility]); Chronic | | | | | | atrial fibrillation | | | | | | ([facility]); Moderate to | | | | | [...] | | NIYAH Sarkar | 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 | | | | | | ([facility]) (Primary Dx); | | | | | | S/P PTCA | | | | | | (percutaneous | | | | | | transluminal | | | | | | coronary | | | | | | angioplasty); | | | | | | 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 | | | | | | ([facility]); Chronic | | | | | | atrial fibrillation | | | | | | ([facility]); Moderate to | | | | | | severe mitral | | | | | | regurgitation; | | | | | | 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 ([facility]); PVD | | | | | | (peripheral vascular | | | | | | disease) ([facility]); | | | | | | Chronic obstructive | | | | | | pulmonary disease, | | | | | | unspecified COPD | | | | | | type ([facility]) | +--------+ + + + + | 07/19/ | Telephone | | Krystle Baez MA | | | 2017 | | | | | +--------+ + + + + | 07/10/ | Office | | Jerman Geronimo, | 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 | | MD | 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 | | | | | | ([facility]) (Primary Dx); | | | | | | S/P PTCA | | | | | | (percutaneous | | | | | | transluminal | | | | | | coronary | | | | | | angioplasty); | | | | | | 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 | | | | | | ([facility]); Chronic | | | | | | atrial fibrillation | | | | | | ([facility]); PVD | | | | | | (peripheral vascular | | | | | | disease) ([facility]); | | | | | | Moderate [...] [place], | | | | | | [place] [address] | | | | | | [phone] | | | | | | | [...] | | | MEDICAL | | | /[id number] | | on 07/28/2016 by Guerita, | | | PRODUCTS | | | 409 | | MD Kellie | | | | | | | + +-------+-------+ +--------+--------+--------+ | Promus Premier Stent 2.75 X | Stent | Heart | [place] | | | / | | 28-07/28/2016Implanted: Qty: 1 | | | MEDICAL | | | /[id number] | | on 07/28/2016 by Guerita, | [...] + + + + | Calculated R [place] | 94 | degrees | + + + + | Calculated T [place] | -66 | degrees | + + + + | Diagnosis | Please refer to Providers office visit note | | | | for Providers Interpretation.Confirmed by | | | | [facility] Read Only, NIKOLAS Mccoy ([id number]), | | | | non linear editor Johnson Kimble ([id number]) on 08/20/2017 | | | | 10:36:28 AM | | + + + + + + + | Specimen | Performing Laboratory | + + + | | [facility] [address] [place] [address] | + + + ECHO outside interpretation standard (08/03/2017 10:52 AM) + + + | Specimen | Performing Laboratory | + + + | | [facility] [place] [address] | + + + + + | [...] from the previous | | study. 4. Hzkmtkyf-rb-ayoklx mitral regurgitation is present, predominately an | [...] enlarged, unchanged from the previous study. 4. Mjilkqmx-tb-kmjcyj | | mitral regurgitation is present, predominately [...] to be m | | Mitral Valve: xtmtyfl-uh-mxxmkl mitral regurgitation, predominately an eccentric, | | [...] mmHg TR Vmax: | | 2.80 m/s Mica Miner Blasting: Authenticated by: Jerman Geronimo Report Date/Time: | | 08-03-2017 11:33:16 | + + + + | Procedure Note | + + | Reece, Rad Results In - 08/03/2017 11:40 AM PST Patient Name: Phill Ynaez of | | : 5Accession: [id number] Physician: Jerman Prasad | | Lehr INDICATIONS [...] | enlarged, unchanged from the previous study.4. Ggcirxxj-if-pwkhhr mitral regurgitation | | is present, predominately [...] to be m Mitral | | Valve: ddumueu-ad-nlfrka mitral regurgitation, predominately an eccentric, posteriorly | [...] cmLVPWd: 0.95 | | cmLVOT Area: 3.71 to8PNFM Diam: 2.17 cm%FS: 17.23 %EF(Teich): 35.78 | [...] (A-L): 43.22 ml/m2LAAs A2C: 23.19 | | qa1FUUZP A-L A2C: 80.31 mlLALs A2C: 5.68 cmLAAs A4C: 21.60 rt3POZOI A-L A4C: | | 70.83 mlLALs A4C: 5.59 cmRAAs: 22.56 qx9WJLVY A-L: 73.39 mlRAESV MOD: 70.66 | | mlRALs: 5.88 cmTAPSE: 2.28 cmAV maxP.18 mmHgAV meanP.07 mmHgAV Vmax: | | 1.23 m/Judson Vmean: 0.82 m/Judson VTI: 19.35 cmAVA Vmax: 1.98 cm2AVA (VTI): 1.93 | | rt6JRFX Vmax: 0.00 cm2/m2AVAI (VTI): 0.00 cm2/m2LVOT maxP.75 mmHgLVOT meanPG: | | 0.93 mmHgLVSI Dopp: 21.26 ml/m2LVSV Dopp: 37.42 mlLVOT Vmax: 0.66 m/sLVOT Vmean: | | 0.45 m/sLVOT VTI: 10.06 cmMV A Herrera: 0.04 m/sMV DecT: 167.58 msMV E Herrera: 0.77 | | m/sMV E/A Ratio: 18 MV PHT: 48.60 msMVA By PHT: 4.52 cc9Lxuvxl e': 0.06 | | m/sSeptal E/e': 12.48 [...] unchanged from the previous study.4. | | Ngaqavuw-bf-herxsf mitral regurgitation is present, predominately an eccentric, [...] |TR Vmax: 2.80 m/s | | | |Mica Miner Blasting: | |Authenticated by: Jerman Geronimo | |Report [...] unchanged from the previous study. | |4. Jadklhzg-sg-oqjmni mitral regurgitation is present, predominately an eccentric, [...] + + | Blood | [facility] [address] [place] [address] | | | [address] | + + + TSH (07/24/2017 7:37 AM) + +-------+ + | Component | Value | Ref Range | + +-------+ + | TSH | 2.39 | 0.270 - 4.20 uIU/mL | + +-------+ + + + + | Specimen | Performing Laboratory | + + + | Blood | [facility] [address] | | | [address] | + + + Digoxin (07/24/2017 7:37 AM) + +---------+ + | Component | Value | Ref Range | + +---------+ + | DIGOXIN LEVEL | 0.2 (A) | 0.8 - 2.0 | + +---------+ + + + + | Specimen | Performing Laboratory | + + + | Blood | [facility] [address] | | | [address] | + + + Lipid panel (07/24/2017 [...] | + + + | Blood | [facility] [place] | | | [address] | + + + Comprehensive metabolic panel [...] + | Blood | [facility] [address], [facility] [address] [place], [place] | | | [address] | + + + from Last 3 [...] | xxxxxxxxxx | | | [address] | | | RE | | | | [place] [address] | | | IP-OP | | | [...] | | al/Fam | | [phone] | [phone] | [place] | | | ron | | | [phone] | [phone] | + +--------+ +--------+ + +
--- OUTSIDE RECORDS SUMMARY | 2017-09-25 05:29 | XMS | Encounter Summary ---
Demographics + + + | Address | [address] | | | [place] [address] | + + + | Home Phone | | + + + | Preferred Language | Unknown | + + + | Marital Status | | + + + | Buddhist Affiliation | 1013 | + + + | Race | Unknown | + + + | Ethnic Group | Unknown | + + + Author + + + | Author | [facility] [employer] [facility] | + + + | Organization | [facility] [facility] | + + + | Address | Unknown | + + + | Phone | Unavailable | + + + Support + + + + + | Name | Relationship | Address | Phone | + + + + + | Nestor Miranda | ECON | [address] | | | | | [place] | | | | | [address] | | + + + + + Care Team Providers + +------+ + | Care Emt I/85 Name | Role | Phone | + +------+ + | Aaron Schwarz DO | PCP | | + +------+ + Encounter Details +--------+ + + + + | Date | Type | Department | Care Team | Description | +--------+ + + + + | 07/30/ | Telephone | [facility]ivey | Tiffani Reyna | | | 2018 | | Maikel Gentile | NIYAH Sarkar [address] | | | | | [address] | Nadine Maldonado | | | | | [facility] [address] | [place] [address] | | | | | [place] [address] | [phone] | | | | | [phone] | | | +--------+ + + + [...] Yes | 2 | 1.2 | Occasional chatoey | | | Glasses | | | [...] | | | | | | [place] [address] | | | | | | [phone] | | | | | | | | +--------+---------+ + + + as of this encounter Visit Diagnoses Not on filein this encounter"
--- OUTSIDE RECORDS SUMMARY | 2017-09-25 05:29 | XMS | Encounter Summary ---
Demographics + + + | Address | [address] | | | [place] [address] | + + + | Home Phone | | + + + | Preferred Language | Unknown | + + + | Marital Status | | + + + | Latter-Day Affiliation | 1013 | + + + | Race | Unknown | + + + | Ethnic Group | Unknown | + + + Author + + + | Author | [facility] | + + + | Organization | [facility] | + + + | Address | Unknown | + + + | Phone | Unavailable | + + + Support + + + + + | Name | Relationship | Address | Phone | + + + + + | Nestor Miranda | ECON | [address] | | | | | [place] | | | | | [address] | | + + + + + Care Team Providers + +------+ + | Care Transfer Car Operator Drier Name | Role | Phone | + +------+ + | Aaron Schwarz DO | PCP | | + +------+ + Encounter Details +--------+ + + + + | Date | Type | Department | Care Team | Description | +--------+ + + + + | 07/30/ | Telephone | [facility] | Krystle Baez MA | | | 2017 | | [facility] | | | | | | [address] | | | | | | [place] | | | | | | [address] | | | | | | [phone] | | | +--------+ + + + [...] | | | | | | [place] [address] | | | | | | [phone] | | | | | | | | +--------+---------+ + + + as of this encounter Visit Diagnoses Not on filein this encounter"
--- OUTSIDE RECORDS SUMMARY | 2017-09-25 05:29 | XMS | Clinical Summary ---
Demographics + + + | Address | [address] | | | [place] [address] | + + + | Home Phone | | + + + | Preferred Language | Unknown | + + + | Marital Status | | + + + | Catholic Affiliation | Unknown | + + + | Race | Unknown | + + + | Ethnic Group | Unknown | + + + Author + + + | Author | [facility] | | | and [place] | + + + | Organization | [facility] | | | and [place] | + + + | Address | Unknown | + + + | Phone | Unavailable | + + + Support + + +---------+ + | Name | Relationship | Address | Phone | + + +---------+ + | Harriett Miranda | ECON | Unknown | | + + +---------+ + Care Team Providers + +------+ + | Care Kiln Burner Helper Name | Role | Phone | + +------+ + PP | Unavailable | + +------+ + Allergies + + + +--------+ + | Active Allergy | Reactions | Severity | Noted | Comments | | | | | Date | | + + + +--------+ + | Simvastatin | | | | | + + + +--------+ + Current Medications + + +-------+---------+------+------+-------+ | Prescription | Sig. | Disp. | Refills | Star | End | Statu | | | | | | t | Date | s | | | | | | Date | | | + + +-------+---------+------+------+-------+ | tiotropium | Inhale 18 mcg into | | | 02/16 | | Activ | | (SPIRIVA HANDIHALER) | the lungs Daily. | | | 09/04 | | e | | 18 mcg inhalation | | | | 12 | | | | capsule | | | | | | | + + +-------+---------+------+------+-------+ | | Take 100-12.5 mg by | | | 02/16 | | Activ | | losartan-hydrochloro | mouth Daily. | | | 09/04 | | e | | thiazide (HYZAAR) | | | | 12 | | | | 100-12.5 MG per | | | | | | | | tablet | | | | | | | + + +-------+---------+------+------+-------+ | Fiber Complete | 2 tablets by mouth | | | 02/16 | | Activ | | TABS | daily | | | 09/04 | | e | | | | | | 12 | | | + + +-------+---------+------+------+-------+ | ascorbic acid ([facility] | Take 1,000 mg by | | | 02/16 | | Activ | | VITAMIN C) 1000 MG | mouth Daily. | | | 320 | | e | | tablet | | | | 12 | | | + + +-------+---------+------+------+-------+ | allopurinol | Take 100 mg by mouth | | | 02/16 | | Activ | | (ZYLOPRIM) 100 mg | Daily. | | | 20 | | e | | tablet | | | | 12 | | | + + +-------+---------+------+------+-------+ | | 2 puffs inhaled | | | 02/16 | | Activ | | albuterol-ipratropiu | every 4 hours as | | | 3/20 | | e | | m (COMBIVENT) 103-18 | needed for shortness | | | 12 | | | | mcg/puff inhaler | of breath | | | | | | + + +-------+---------+------+------+-------+ | piroxicam | Take 20 mg by mouth | | | 09/1 | | Activ | | (FELDENE) 20 MG | Daily. | | | 3/20 | | e | | capsule | | | | 12 | | | + + +-------+---------+------+------+-------+ | [place]-3 Fatty | Take 1,000 mg by | | | /1 | | Activ | | Acids (FISH OIL | mouth 2 times daily. | | | 320 | | e | | CONCENTRATE) 1000 MG | | | | 12 | | | | CAPS | | | | | | | + + +-------+---------+------+------+-------+ | glipiZIDE | Take 10 mg by mouth | | | 1 | | Activ | | (GLUCOTROL XL) 10 MG | Daily. | | | 3/20 | | e | | 24 hr tablet | | | | 12 | | | + + +-------+---------+------+------+-------+ | lovastatin | Take 10 mg by mouth | | | 09/1 | | Activ | | (MEVACOR) 10 MG | Daily. | | | 320 | | e | | tablet | | | | 12 | | | + + +-------+---------+------+------+-------+ | | use in nebulizer | | | / | | Activ | | albuterol-ipratropiu | every 4 hours as | | | 3/20 | | e | | m (DUONEB) 2.5-0.5 | needed for shortness | | | 12 | | | | mg/3 mL SOLN | of breath | | | | | | + + +-------+---------+------+------+-------+ | tocopherol ([facility]S | Take 400 Units by | | | 02/16 | | Activ | | VITAMIN E) 400 units | mouth Daily. | | | 3/20 | | e | | capsule | | | | 12 | | | + + +-------+---------+------+------+-------+ | indomethacin | Take 50 mg by mouth | | | 02/16 | | Activ | | (INDOCIN) 50 MG | 3 times daily as | | | 3/20 | | e | | capsule | needed. | | | 12 | | | + + +-------+---------+------+------+-------+ | budesonide | 2 puffs inhaled | | | 03/0 | | Activ | | (PULMICORT | twice daily | | | 5/20 | | e | | FLEXHALER) 180 | | | | 12 | | | | mcg/puff inhaler | | | | | | | + + +-------+---------+------+------+-------+ Active Problems + + + | Problem | Noted Date | + + + | ASTHMA | | + + + | HYPERTENSION, BENIGN | | + + + | DIABETES MELLITUS, TYPE II | | + + + | GOUT | | + + + | RENAL DISEASE, CHRONIC | | + + + | HYPERLIPIDEMIA | | + + + | OTHER NONSPECIFIC ABNORMAL FINDING OF LUNG FIELD | | + + + | BRONCHITIS, CHRONIC, ACUTE EXACERBATION | | + + + | DYSPNEA | | + + + | Pulmonary emphysema (HCC) | | + + + + + | Overview: CARLOSU [id number] Decision | + + +---------+---+ | C O P D | | +---------+---+ Social History + +-------+ +--------+------+ | Tobacco [...] + + + | Blood Pressure | 134/72 | 08/21/2011 0000 PST | + + + + | Pulse | - | - | + + + + | Temperature | - | - | + + + + | Respiratory Rate | - | - | + + + + | Oxygen Saturation | - | - | + + + + | Inhaled Oxygen | - | - | | Concentration | | | + + + + | Weight | 74.3 kg (163 lb 11.2 | 08/21/2011 0000 PST | | | oz) | | + + + + | Height | 170.2 cm (5' 7") | 07/10/2011 0000 PST | + + + + | Body Mass Index | 25.64 | 08/21/2011 0000 PST | + + + + Plan of Treatment + + + + + | Health Maintenance | Due Date | Last Done | Comments | + + + + + | Diabetic Eye Exam | | | | | (Bi-Annually) | 3 | | | + + + + + | Diabetic Foot Exam | | | | | | 3 | | | + + + + + | Hemoglobin A1c Q3 | | | | | Months | 3 | | | + + + + [...] | | + + + + + Results Not on filefrom Last 3 Months
--- OUTSIDE RECORDS SUMMARY | 2017-09-25 05:29 | XMS | Encounter Summary ---
Demographics + + + | Address | [address] | | | [place] [address] | + + + | Home Phone [...] Author | [facility] [employer] [facility] | + + + | Organization | [facility] [employer] [facility] | + + + | Address | Unknown | + + + | Phone | Unavailable | + + + Support + + + + + | Name | Relationship | Address | Phone | + + + + + | Nestor Miranda | ECON | [address] | | | | | [place] | | | | | [address] | | + + + + + Care Team Providers + +------+ + | Care Sketch Artist Name | Role | Phone | + +------+ + | Aaron Schwarz DO | PCP | | + +------+ + Reason for Visit + + + | Reason | Comments | + + + | Labs Only | [facility] 07/24/2017 | + + + Encounter Details +--------+ + + + + | Date | Type | Department | Care Team | Description | +--------+ + + + + | 08/13/ | Documentati | [facility] [place] | Quita Hernandez, | Labs Only | | 2018 | on Only | [facility] | [facility] | ([facility] | | | | [address] | | 07/24/2017) | | | | [place] | | | | | | [address] | | | | | | [phone] | | | +--------+ + + + [...] | | | | | | [place] [address] | | | | | | [phone] | | | | | | | | +--------+---------+ + + + as of this encounter Visit Diagnoses Not on filein this encounter"
--- OUTSIDE RECORDS SUMMARY | 2017-09-25 05:29 | XMS | Encounter Summary ---
Demographics + + + | Address | [address] | | | [place] [address] | + + + | Home Phone | | + + + | Preferred Language | Unknown | + + + | Marital Status | | + + + | Faith Affiliation | 1013 | + + + | Race | Unknown | + + + | Ethnic Group | Unknown | + + + Author + + + | Author | [facility] | + + + | Organization | [facility] | + + + | Address | Unknown | + + + | Phone | Unavailable | + + + Support + + + + + | Name | Relationship | Address | Phone | + + + + + | Nestor Miranda | ECON | [address] | | | | | [place] | | | | | [address] | | + + + + + Care Team Providers + +------+ + | Care Staff Research Scientist Name | Role | Phone | + +------+ + | Aaron Schwarz DO | PCP | | + +------+ + Encounter Details +--------+ + + + + | Date | Type | Department | Care Team | Description | +--------+ + + + + | 07/19/ | Telephone | [facility] [place] | Krystle Baez MA | | | 2017 | | [facility] | | | | | | [address] | | | | | | [place] | | | | | | [address] | | | | | | [phone] | | | +--------+ + + + [...] | | | | | | [place] [address] | | | | | | [phone] | | | | | | | | +--------+---------+ + + + as of this encounter Visit Diagnoses Not on filein this encounter"
--- OUTSIDE RECORDS SUMMARY | 2017-09-25 05:29 | XMS | Encounter Summary ---
Demographics + + + | Address | [address] | | | [place] [address] | + + + | Home Phone | | + + + | Preferred Language | Unknown | + + + | Marital Status | | + + + | Baptism Affiliation | 1013 | + + + | Race | Unknown | + + + | Ethnic Group | Unknown | + + + Author + + + | Author | [facility] | + + + | Organization | [facility] | + + + | Address | Unknown | + + + | Phone | Unavailable | + + + Support + + + + + | Name | Relationship | Address | Phone | + + + + + | Nestor Miranda | ECON | [address] | | | | | [place] | | | | | [address] | | + + + + + Care Team Providers + +------+ + | Care Polyethylene Combiner Name | Role | Phone | + +------+ + | Aaron Schwarz DO | PCP | | + +------+ + Encounter Details +--------+ + + + + | Date | Type | Department | Care Team | Description | +--------+ + + + + | 08/03/ | Ancillary | [facility] | Jerman Geronimo, | Dilated | | 2018 | Procedure | ECHO | MD [address] | cardiomyopathy | | | | | [place], | ([facility]); Chronic | | | | | [place] [address] | atrial fibrillation | | | | | [phone] | ([facility]); Moderate to | | | | | | severe mitral | | | | | | regurgitation | +--------+ + + + + Social [...] [place], | | | | | | [place] [address] | | | | | | [phone] | | | | | | | | +--------+---------+ + + + as of this encounter Procedures + +--------+ + + + | [...] | | + +--------+ + + + in this encounter Results ECHO outside interpretation standard (08/03/2017 10:52 AM) + + + | Specimen | Performing Laboratory | + + + | | [address] [address] | + + + + + | [...] from the previous | | study. 4. Ctkajocs-sp-rvamnq mitral regurgitation is present, predominately an | [...] enlarged, unchanged from the previous study. 4. Qzugwgqx-xe-dwfokr | | mitral regurgitation is present, predominately [...] to be m | | Mitral Valve: wetzmyx-fj-uldazz mitral regurgitation, predominately an eccentric, | | [...] mmHg TR Vmax: | | 2.80 m/s Transfer Clerk: Authenticated by: Jerman Geronimo Report Date/Time: | | 08-03-2017 11:33:16 | + + + + | Procedure Note | + + | Reece, Rad Results In - 08/03/2017 11:40 AM PST Patient Name: Phill Miranda of | | : 5Accession: [id number] Physician: Jerman Prasad | | Lehr INDICATIONS [...] | enlarged, unchanged from the previous study.4. Wyrouitd-zp-fwuyez mitral regurgitation | | is present, predominately [...] to be m Mitral | | Valve: rndirao-cs-mhjrnh mitral regurgitation, predominately an eccentric, posteriorly | [...] cmLVPWd: 0.95 | | cmLVOT Area: 3.71 qs7HCCV Diam: 2.17 cm%FS: 17.23 %EF(Teich): 35.78 | [...] (A-L): 43.22 ml/m2LAAs A2C: 23.19 | | er0VLURH A-L A2C: 80.31 mlLALs A2C: 5.68 cmLAAs A4C: 21.60 yw7BQFET A-L A4C: | | 70.83 mlLALs A4C: 5.59 cmRAAs: 22.56 rz2FFMPA A-L: 73.39 mlRAESV MOD: 70.66 | | mlRALs: 5.88 cmTAPSE: 2.28 cmAV maxP.18 mmHgAV meanP.07 mmHgAV Vmax: | | 1.23 m/Judson Vmean: 0.82 m/Judson VTI: 19.35 cmAVA Vmax: 1.98 cm2AVA (VTI): 1.93 | | ow6MPXG Vmax: 0.00 cm2/m2AVAI (VTI): 0.00 cm2/m2LVOT maxP.75 mmHgLVOT meanPG: | | 0.93 mmHgLVSI Dopp: 21.26 ml/m2LVSV Dopp: 37.42 mlLVOT Vmax: 0.66 m/sLVOT Vmean: | | 0.45 m/sLVOT VTI: 10.06 cmMV A Herrera: 0.04 m/sMV DecT: 167.58 msMV E Herrera: 0.77 | | m/sMV E/A Ratio: 18 MV PHT: 48.60 msMVA By PHT: 4.52 ua7Uoloxr e': 0.06 | | m/sSeptal E/e': 12.48 [...] unchanged from the previous study.4. | | Mieyuzau-ez-ftghnt mitral regurgitation is present, predominately an eccentric, [...] |TR Vmax: 2.80 m/s | | | |Transfer Clerk: | |Authenticated by: Jerman Geronimo | |Report [...] unchanged from the previous study. | |4. Uaqjpdzo-bb-cvbctk mitral regurgitation is present, predominately an eccentric, posterio rly directed jet, unchanged from the previous study. | |5. There is borderline pulmonary hypertension, unchanged from the previous study. | + + in this encounter Visit Diagnoses + + | Diagnosis | + + | Dilated cardiomyopathy (HCC) | + + | Other primary cardiomyopathies | + + | Chronic atrial fibrillation (HCC) | + + | Atrial fibrillation | + + | Moderate to severe mitral regurgitation | + +"
--- OUTSIDE RECORDS SUMMARY | 2017-09-25 05:29 | XMS | Encounter Summary ---
Demographics + + + | Address | [address] | | | [place] [address] | + + + | Home Phone | | + + + | Preferred Language | Unknown | + + + | Marital Status | | + + + | Mu-Ism Affiliation | 1013 | + + + | Race | Unknown | + + + | Ethnic Group | Unknown | + + + Author + + + | Author | [facility] | + + + | Organization | [facility] | + + + | Address | Unknown | + + + | Phone | Unavailable | + + + Support + + + + + | Name | Relationship | Address | Phone | + + + + + | Nestor Miranda | ECON | [address] | | | | | [place] | | | | | [address] | | + + + + + Care Team Providers + +------+ + | Care Cake Knocker Name | Role | Phone | + [...] + | 08/21/ | Documentati | [facility] | Quita Hernandez, | Other (Patients home | | 2018 | on Only | Cardiology Arlee | [facility] | diary, medications, | | | | [address] | | bp) | | | | [place] | | | | | | [address] | | | | | | [phone] | | | +--------+ + + + [...] | | | | | | [place] [address] | | | | | | [phone] | | | | | | | | +--------+---------+ + + + as of this encounter Visit Diagnoses Not on filein this encounter"
--- OUTSIDE RECORDS SUMMARY | 2017-09-25 05:30 | XMS | Encounter Summary ---
Demographics + + + | Address | [address] | | | [place] [address] | + + + | Home Phone | | + + + | Preferred Language | Unknown | + + + | Marital Status | | + + + | Holiness Affiliation | 1013 | + + + | Race | Unknown | + + + | Ethnic Group | Unknown | + + + Author + + + | Author | [facility] [employer] [facility] | + + + | Organization | [facility] [employer] [facility] | + + + | Address | Unknown | + + + | Phone | Unavailable | + + + Support + + + + + | Name | Relationship | Address | Phone | + + + + + | Nestor Miranda | ECON | [address] | | | | | [place] | | | | | [address] | | + + + + + Care Team Providers + +------+ + | Care Hotel Guest Service Agent Name | Role | Phone | + [...] Maldonado | | | | | [facility] [address] | [place] [address] | | | | | [place] [address] | [phone] | | | | | [phone] | | | +--------+ + + + [...] | | | | | | [place] [address] | | | | | | [phone] | | | | | | | | +--------+---------+ + + + as of this encounter Visit Diagnoses Not on filein this encounter"
--- OUTSIDE RECORDS SUMMARY | 2017-09-25 05:30 | XMS | Encounter Summary ---
Demographics + + + | Address | [address] | | | [place] [address] | + + + | Home Phone | | + + + | Preferred Language | Unknown | + + + | Marital Status | | + + + | Alevism Affiliation | 1013 | + + + | Race | Unknown | + + + | Ethnic Group | Unknown | + + + Author + + + | Author | [facility] | + + + | Organization | [facility] | + + + | Address | Unknown | + + + | Phone | Unavailable | + + + Support + + + + + | Name | Relationship | Address | Phone | + + + + + | Nestor Miranda | ECON | [address] | | | | | [place] | | | | | [address] | | + + + + + Care Team Providers + +------+ + | Care Ribbon Blocker Name | Role | Phone | + [...] | | | | | | [place] | | | | | | [address] | | | | | | [phone] | | | +--------+ + + + [...] [place], | | | | | | [place] [address] | | | | | | [phone] | | | | | | | | +--------+---------+ + + + as of this encounter Visit Diagnoses Not on filein this encounter"
--- OUTSIDE RECORDS SUMMARY | 2017-09-25 05:30 | XMS | Encounter Summary ---
Demographics + + + | Address | [address] | | | [place] [address] | + + + | Home Phone | | + + + | Preferred Language | Unknown | + + + | Marital Status | | + + + | Anabaptism Affiliation | 1013 | + + + | Race | Unknown | + + + | Ethnic Group | Unknown | + + + Author + + + | Author | [facility] [employer] [facility] | + + + | Organization | [facility] [employer] [facility] | + + + | Address | Unknown | + + + | Phone | Unavailable | + + + Support + + + + + | Name | Relationship | Address | Phone | + + + + + | Nestor Miranda | ECON | [address] | | | | | [place] | | | | | [address] | | + + + + + Care Team Providers + +------+ + | Care Vascular Physician Name | Role | Phone | + [...] | NIYAH [address] | disease [place] | | | | [address] | Nadine Perez F | artery [place] | | | | [address] | [place] [address] | heart with stable | | | | [place] [address] | [phone] | angina pectoris | | | | [phone] | | ([facility]) (Primary Dx); | | | | | | S/P PTCA | | | | | | (percutaneous | | | | | | transluminal | | | | | | coronary | | | | | | angioplasty); | | | | | | 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 | | | | | | ([facility]); Chronic | | | | | | atrial fibrillation | | | | | | ([facility]); Moderate to | | | | | | severe mitral | | | | | | regurgitation; | | | | | | 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 Exercises with walking in [employer] 2-3 time s per week, can go 2-3 times around the store and tolerates. . Lives in [place]. Outpatient Medications Prior to Visit Medication Sig [...] No results found for: METF, NMETFX, TFNMFX, [id number], [id number], TOTEPI IMAGING /PROCEDURES ; Last Lexiscan Cardiolite [...] Peak/mean gradient across the valve is 6.18mmHg/3.08mmHg. [facility] ral valve normal, stable moderate to severe [...] pulmonary HTN, RVSP 36.9 mm Hg Echo (09/27/15-[facility]): moderate global hypokinesis, EF 35-40%, marked [...] ms, QTC 443 ms, personally reviewed by ak [email or web address]. Atrial fibrillation, nonspecific ST abnormality. Rate 80 bpm, QRS 90 ms, QTC 481 ms(post stenting), personally reviewed by ak [email or web address]: Atrial fibrillation RVR, nonspecific T-wave abnormality [...] Dr. Harman. 1. Coronary artery disease of [place] artery [place] heart with stable angina pectoris (HC C) [...] past surgical history. Problem list. NIYAH [facility] Cardiology 08/21/2017in this encounter Plan of Treatment +--------+---------+ + + + | Date | Type | Specialty | Care Team | Description | +--------+---------+ + + + | 10/23/ | Office | Cardiology | Jerman Geronimo, | | | 2017 | Visit | | MD [address] | | | | | | [place], | | | | | | [place] [address] | | | | | | [phone] | | | | | | | | +--------+---------+ + + + + +--------+ + + | Name | Priori | Associated Diagnoses | Order Schedule | | | ty | | | + +--------+ + + | Comprehensive metabolic panel | Routin | Coronary artery | Expected: | | | e | disease [place] | 10/08/2017, Expires: | | | | artery [place] | 08/20/2018 | | | | heart with stable | | | | | angina pectoris | | | | | ([facility]) S/P PTCA | | | | | (percutaneous | | | | | transluminal | | | | | coronary | | | | | angioplasty) | | | | | Dilated | | | | | cardiomyopathy ([facility]) | | | | | Chronic atrial | | | | | fibrillation ([facility]) | | | | | 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 | | | | | failure ([facility]) Type | | | | | 2 diabetes mellitus | | | | | without | | | | | complication, | | | | | without long-term | | | | | current use of | | | | | insulin ([facility]) | | + +--------+ + + | Lipid panel | Routin | Coronary artery | Expected: | | | e | disease [place] | 10/08/2017, Expires: | | | | artery [place] | 08/20/2018 | | | | heart with stable | | | | | angina pectoris | | | | | ([facility]) S/P PTCA | | | | | [...] + + + + | Calculated R [place] | 94 | degrees | + + + + | Calculated T [place] | -66 | degrees | + + + + | Diagnosis | Please refer to Providers office visit note | | | | for Providers Interpretation.Confirmed by | | | | ICA Benedict Read Only, NIKOLAS Mccoy ([id number]), | | | | scientific editor Johnson Kimble ([id number]) on 08/20/2017 | | | | 10:36:28 AM | | + + + + + + + | Specimen | Performing Laboratory | + + + | | [facility] [place] [address] | + + + in this encounter Visit Diagnoses + + | Diagnosis | + + | Coronary artery disease of [place] artery of [place] heart with stable angina pectoris | | [...]
--- OUTSIDE RECORDS SUMMARY | 2017-09-25 05:30 | XMS | Encounter Summary ---
Demographics + + + | Address | [address] | | | [place] [address] | + + + | Home Phone | | + + + | Preferred Language | Unknown | + + + | Marital Status | | + + + | Mu-Ism Affiliation | 1013 | + + + | Race | Unknown | + + + | Ethnic Group | Unknown | + + + Author + + + | Author | [facility] | + + + | Organization | [facility] [employer] [facility] | + + + | Address | Unknown | + + + | Phone | Unavailable | + + + Support + + + + + | Name | Relationship | Address | Phone | + + + + + | Nestor Miranda | ECON | [address] | | | | | [place] | | | | | [address] | | + + + + + Care Team Providers + +------+ + | Care Manager Operating Name | Role | Phone | + +------+ + | Aaron Schwarz DO | PCP | | + +------+ + Encounter Details +--------+ + + + + | Date | Type | Department | Care Team | Description | +--------+ + + + + | 07/19/ | Telephone | [facility] [place] | Krystle Baez MA | | | 2017 | | Cardiology [place] | | | | | | [address] | | | | | | [place] | | | | | | [address] | | | | | | [phone] | | | +--------+ + + + [...] | | | | | | [place] [address] | | | | | | [phone] | | | | | | | | +--------+---------+ + + + as of this encounter Visit Diagnoses Not on filein this encounter"
--- OUTSIDE RECORDS SUMMARY | 2017-09-25 05:30 | XMS | Encounter Summary ---
Demographics + + + | Address | [address] | | | [place] [address] | + + + | Home Phone | | + + + | Preferred Language | Unknown | + + + | Marital Status | | + + + | Jainism Affiliation | 1013 | + + + | Race | Unknown | + + + | Ethnic Group | Unknown | + + + Author + + + | Author | [facility] | + + + | Organization | [facility] | + + + | Address | Unknown | + + + | Phone | Unavailable | + + + Support + + + + + | Name | Relationship | Address | Phone | + + + + + | Nestor Miranda | ECON | [address] | | | | | [place] | | | | | [address] | | + + + + + Care Team Providers + +------+ + | Care Caser In Name | Role | Phone | + [...] | | | | [place], | ([facility]); Chronic | | | | | [place] [address] | atrial fibrillation | | | | | [phone] | ([facility]); Moderate to | | | | [...] [place], | | | | | | [place] [address] | | | | | | [phone] | | | | | | | [...] Laboratory | + + + | | [address] [address] | + + + + + | [...] from the previous | | study. 4. Aylpvnoh-dk-afcjsq mitral regurgitation is present, predominately an | [...] enlarged, unchanged from the previous study. 4. Emdpoqxx-kd-mgzctx | | mitral regurgitation is present, predominately [...] to be m | | Mitral Valve: reywkta-xc-mcxwbh mitral regurgitation, predominately an eccentric, | | [...] mmHg TR Vmax: | | 2.80 m/s Field Seismologist: Authenticated by: Jerman Geronimo Report Date/Time: | | 08-03-2017 11:33:16 | + + + + | Procedure Note | + + | Reece, Rad Results In - 08/03/2017 11:40 AM PST Patient Name: Phill Miranda of | | : 5Accession: [id number] Physician: Jerman Prasad | | Lehr INDICATIONS [...] | enlarged, unchanged from the previous study.4. Mgoirdwu-ao-ycpnki mitral regurgitation | | is present, predominately [...] to be m Mitral | | Valve: hurixex-hl-ikjqhg mitral regurgitation, predominately an eccentric, posteriorly | [...] cmLVPWd: 0.95 | | cmLVOT Area: 3.71 ts2PMNU Diam: 2.17 cm%FS: 17.23 %EF(Teich): 35.78 | [...] (A-L): 43.22 ml/m2LAAs A2C: 23.19 | | bb7PMJRP A-L A2C: 80.31 mlLALs A2C: 5.68 cmLAAs A4C: 21.60 cm8CHFLI A-L A4C: | | 70.83 mlLALs A4C: 5.59 cmRAAs: 22.56 ph8CCBPH A-L: 73.39 mlRAESV MOD: 70.66 | | mlRALs: 5.88 cmTAPSE: 2.28 cmAV maxP.18 mmHgAV meanP.07 mmHgAV Vmax: | | 1.23 m/Judson Vmean: 0.82 m/Judson VTI: 19.35 cmAVA Vmax: 1.98 cm2AVA (VTI): 1.93 | | jz0VFGQ Vmax: 0.00 cm2/m2AVAI (VTI): 0.00 cm2/m2LVOT maxP.75 mmHgLVOT meanPG: | | 0.93 mmHgLVSI Dopp: 21.26 ml/m2LVSV Dopp: 37.42 mlLVOT Vmax: 0.66 m/sLVOT Vmean: | | 0.45 m/sLVOT VTI: 10.06 cmMV A Herrera: 0.04 m/sMV DecT: 167.58 msMV E Herrera: 0.77 | | m/sMV E/A Ratio: 18 MV PHT: 48.60 msMVA By PHT: 4.52 vn2Xexhep e': 0.06 | | m/sSeptal E/e': 12.48 [...] unchanged from the previous study.4. | | Dpbfaynw-db-xmfnlc mitral regurgitation is present, predominately an eccentric, [...] |TR Vmax: 2.80 m/s | | | |Field Seismologist: | |Authenticated by: Jerman Geronimo | |Report [...] unchanged from the previous study. | |4. Rvrbxzze-uw-xlkirr mitral regurgitation is present, predominately an eccentric, [...]
--- OUTSIDE RECORDS SUMMARY | 2017-09-25 05:30 | XMS | Encounter Summary ---
Demographics + + + | Address | [address] | | | [place] [address] | + + + | Home Phone | | + + + | Preferred Language | Unknown | + + + | Marital Status | | + + + | Faith Affiliation | 1013 | + + + | Race | Unknown | + + + | Ethnic Group | Unknown | + + + Author + + + | Author | [facility] | + + + | Organization | [facility] [facility] | + + + | Address | Unknown | + + + | Phone | Unavailable | + + + Support + + + + + | Name | Relationship | Address | Phone | + + + + + | Nestor Miranda | ECON | [address] | | | | | [place] | | | | | [address] | | + + + + + Care Team Providers + +------+ + | Care Manager Mechanical Maintenance Name | Role | Phone | + +------+ + | Aaron Schwarz DO | PCP | | + +------+ + Encounter Details +--------+ + + + + | Date | Type | Department | Care Team | Description | +--------+ + + + + | 07/30/ | Telephone | [facility] [place] | Krystle Baez MA | | | 2017 | | Cardiology [place] | | | | | | [address] | | | | | | [place] | | | | | | [address] | | | | | | [phone] | | | +--------+ + + + [...] | | | | | | [place] [address] | | | | | | [phone] | | | | | | | | +--------+---------+ + + + as of this encounter Visit Diagnoses Not on filein this encounter"
--- OUTSIDE RECORDS SUMMARY | 2017-09-25 05:30 | XMS | Encounter Summary ---
Demographics + + + | Address | [address] | | | [place] [address] | + + + | Home Phone | | + + + | Preferred Language | Unknown | + + + | Marital Status | | + + + | Mormonism Affiliation | 1013 | + + + | Race | Unknown | + + + | Ethnic Group | Unknown | + + + Author + + + | Author | [facility] | + + + | Organization | [facility] | + + + | Address | Unknown | + + + | Phone | Unavailable | + + + Support + + + + + | Name | Relationship | Address | Phone | + + + + + | Nestor Miranda | ECON | [address] | | | | | [place] | | | | | [address] | | + + + + + Care Team Providers + +------+ + | Care Supervisor Inventory Merchandising Name | Role | Phone | + [...] [place] | | | | | [place] | [place] [address] | | | | | [address] | [phone] | | | | | [phone] | | | +--------+ + + + [...] [place], | | | | | | [place] [address] | | | | | | [phone] | | | | | | | | +--------+---------+ + + + as of this encounter Visit Diagnoses Not on filein this encounter"
--- OUTSIDE RECORDS SUMMARY | 2017-09-25 05:30 | XMS | Encounter Summary ---
Demographics + + + | Address | [address] | | | [place] [address] | + + + | Home Phone | | + + + | Preferred Language | Unknown | + + + | Marital Status | | + + + | Zoroastrian Affiliation | 1013 | + + + | Race | Unknown | + + + | Ethnic Group | Unknown | + + + Author + + + | Author | [facility] [employer] [facility] | + + + | Organization | [facility] [employer] [facility] | + + + | Address | Unknown | + + + | Phone | Unavailable | + + + Support + + + + + | Name | Relationship | Address | Phone | + + + + + | Nestor Miranda | ECON | [address] | | | | | [place] | | | | | [address] | | + + + + + Care Team Providers + +------+ + | Care Weld Technician Name | Role | Phone | + [...] MD [address]ika [address] | disease [place] | | | | [address] | [place], | artery [place] | | | | [address] | [place] [address] | heart with stable | | | | [place] [address] | [phone] | angina pectoris | | | | [phone] | | ([facility]) (Primary Dx); | | | | | | S/P PTCA | | | | | | (percutaneous | | | | | | transluminal | | | | | | coronary | | | | | | angioplasty); | | | | | | 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 | | | | | | ([facility]); Chronic | | | | | | atrial fibrillation | | | | | | ([facility]); PVD | | | | | | (peripheral vascular | | | | | | disease) ([facility]); | | | | | | Moderate [...] time. I will see him back in [address] [place] [address] for follow-up. Review of Systems CONSTITUTIONAL: 17 [...] now seems to have NYHA class I chrome plater malik combined systolic/diastolic heart failure. He has [...] rate. There were rare PVCs -- Echo (09/27/15-[facility]): moderate global hypokinesis, EF35-40%, marked LAE , [...] noted on his abdominal CT scan at [place]. GENITOURINARY: Mild chronic kidney disease, with evidence [...] CHADS2 VASc 4 CHF (congestive heart failure) ([facility]) Chronic kidney disease Mild, although renal cortical thinning is noted on an abdominal CT COPD (chronic obstructive pulmonary disease) ([facility]) Asthma and emphysema Coronary artery disease multivessel [...] today for follow-up. 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 4. Mmhgscox-yo-dyxuxz mitral regurgitation is present, predominately an | [...] enlarged, unchanged from the previous study. 4. Cfhncvko-vy-japiop | | mitral regurgitation is present, predominately [...] to be m | | Mitral Valve: vsfhvgt-nc-aznpqc mitral regurgitation, predominately an eccentric, | | [...] mmHg TR Vmax: | | 2.80 m/s Corporate Associate Attorney: Authenticated by: Jerman Geronimo Report Date/Time: | | 08-03-2017 11:33:16 | + + + + | Procedure Note | + + | Ross Newell Results In - 08/03/2017 11:40 AM PST Patient Name: Phill Miranda of | | : 5Accession: [id number] Physician: Jerman M. | | Lehr INDICATIONS [...] | enlarged, unchanged from the previous study.4. Zrnxdkls-am-xgtrme mitral regurgitation | | is present, predominately [...] to be m Mitral | | Valve: raoyonm-pt-ugbsza mitral regurgitation, predominately an eccentric, posteriorly | [...] cmLVPWd: 0.95 | | cmLVOT Area: 3.71 rp1FDKB Diam: 2.17 cm%FS: 17.23 %EF(Teich): 35.78 | [...] (A-L): 43.22 ml/m2LAAs A2C: 23.19 | | yo3KKRQS A-L A2C: 80.31 mlLALs A2C: 5.68 cmLAAs A4C: 21.60 vv2ACYVN A-L A4C: | | 70.83 mlLALs A4C: 5.59 cmRAAs: 22.56 ar2BPRGW A-L: 73.39 mlRAESV MOD: 70.66 | | mlRALs: 5.88 cmTAPSE: 2.28 cmAV maxP.18 mmHgAV meanP.07 mmHgAV Vmax: | | 1.23 m/Judson Vmean: 0.82 m/Judson VTI: 19.35 cmAVA Vmax: 1.98 cm2AVA (VTI): 1.93 | | kg5VNII Vmax: 0.00 cm2/m2AVAI (VTI): 0.00 cm2/m2LVOT maxP.75 mmHgLVOT meanPG: | | 0.93 mmHgLVSI Dopp: 21.26 ml/m2LVSV Dopp: 37.42 mlLVOT Vmax: 0.66 m/sLVOT Vmean: | | 0.45 m/sLVOT VTI: 10.06 cmMV A Herrera: 0.04 m/sMV DecT: 167.58 msMV E Herrera: 0.77 | | m/sMV E/A Ratio: 18 MV PHT: 48.60 msMVA By PHT: 4.52 xf6Finutk e': 0.06 | | m/sSeptal E/e': 12.48 [...] unchanged from the previous study.4. | | Inmbhzik-er-vsclle mitral regurgitation is present, predominately an eccentric, [...] |TR Vmax: 2.80 m/s | | | |Corporate Associate Attorney: | |Authenticated by: Jerman Geronimo | |Report [...] unchanged from the previous study. | |4. Mlbhbcxj-jl-dsvnfb mitral regurgitation is present, predominately an eccentric, posterio rly directed jet, unchanged from the previous study. | |5. There is borderline pulmonary hypertension, unchanged from the previous study. | + + in this encounter Visit Diagnoses + + | Diagnosis | + + | Coronary artery disease of [place] artery [place] heart with stable angina pectoris | [...]
--- OUTSIDE RECORDS SUMMARY | 2017-09-25 05:30 | XMS | Encounter Summary ---
Demographics + + + | Address | [address] | | | [place] [address] | + + + | Home Phone [...] + | Author | [facility] [employer] [facility] | + + + | Organization | [facility] [facility] | + + + | Address | Unknown | + + + | Phone | Unavailable | + + + Support + + + + + | Name | Relationship | Address | Phone | + + + + + | Nestor Miranda | ECON | [address] | | | | | [place] | | | | | [address] | | + + + + + Care Team Providers + +------+ + | Care Filler And Trimmer Name | Role | Phone | [...] | | 2018 | on Only | [facility] | YAMILA | Ma[place]) | | | | [address] | | | | | | [place], [place] | | | | | | [address] | | | | | | [phone] | | | +--------+ + + + [...] | | | | | | [place] [address] | | | | | | [phone] | | | | | | | [...] + + | Blood | [facility] [address] [place] [address] | | | [address] | + + + Digoxin (07/24/2017 7:37 AM) + +---------+ + | Component | Value | Ref Range | + +---------+ + | DIGOXIN LEVEL | 0.2 (A) | 0.8 - 2.0 | + +---------+ + + + + | Specimen | Performing Laboratory | + + + | Blood | [facility] [address] [place] [address] | | | [address] | + + + TSH (07/24/2017 7:37 AM) + +-------+ + | Component | Value | Ref Range | + +-------+ + | TSH | 2.39 | 0.270 - 4.20 uIU/mL | + +-------+ + + + + | Specimen | Performing Laboratory | + + + | Blood | [facility] [address] [place] [address] | | | [address] | + + + Comprehensive metabolic panel [...] + + | Blood | [facility] [address] [place], [place] [address] | | | [address] | + + + Lipid panel (07/24/2017 [...] | + + + | Blood | [facility] [address] [place], [place] [address] | | | [address] | + + + in this encounter Visit Diagnoses Not on filein this encounter"
--- OUTSIDE RECORDS SUMMARY | 2017-09-25 05:30 | XMS | Encounter Summary ---
Demographics + + + | Address | [address] | | | [place] [address] | + + + | Home Phone | | + + + | Preferred Language | Unknown | + + + | Marital Status | | + + + | Latter-Day Affiliation | 1013 | + + + | Race | Unknown | + + + | Ethnic Group | Unknown | + + + Author + + + | Author | [facility] | + + + | Organization | [facility] | + + + | Address | Unknown | + + + | Phone | Unavailable | + + + Support + + + + + | Name | Relationship | Address | Phone | + + + + + | Nestor Miranda | ECON | [address] | | | | | [place] | | | | | [address] | | + + + + + Care Team Providers + +------+ + | Care Beading Machine Operator Name | Role | Phone | [...] + | 08/13/ | Documentati | BRY[facility] [place] | Quita Hernandez, | Labs Only | | 2018 | on Only | Cardiology [place] | OFF PREMISE SERVICE REPRESENTATIVE | ([address] | | | | [address] | | 07/24/2017) | | | | [place] | | | | | | [address] | | | | | | [phone] | | | +--------+ + + + [...] [place], | | | | | | [place] [address] | | | | | | [phone] | | | | | | | | +--------+---------+ + + + as of this encounter Visit Diagnoses Not on filein this encounter"
--- OUTSIDE RECORDS SUMMARY | 2017-09-25 05:30 | XMS | Encounter Summary ---
Demographics + + + | Address | [address] | | | [place] [address] | + + + | Home Phone | | + + + | Preferred Language | Unknown | + + + | Marital Status | | + + + | Amish Affiliation | 1013 | + + + | Race | Unknown | + + + | Ethnic Group | Unknown | + + + Author + + + | Author | [facility] | + + + | Organization | [facility] | + + + | Address | Unknown | + + + | Phone | Unavailable | + + + Support + + + + + | Name | Relationship | Address | Phone | + + + + + | Nestor Miranda | ECON | [address] | | | | | [place] | | | | | [address] | | + + + + + Care Team Providers + +------+ + | Care Muck Boss Name | Role | Phone | + [...] | 2018 | on Only | [facility] | DADA Carl | | | | | [address] | | | | | | [place] | | | | | | [address] | | | | | | [phone] | | | +--------+ + + + [...] | | | | | | [place] [address] | | | | | | [phone] | | | | | | | | +--------+---------+ + + + as of this encounter Visit Diagnoses Not on filein this encounter"
--- OUTSIDE RECORDS SUMMARY | 2017-09-25 05:30 | XMS | Encounter Summary ---
Demographics + + + | Address | [address] | | | [place] [address] | + + + | Home Phone | | + + + | Preferred Language | Unknown | + + + | Marital Status | | + + + | Muslim Affiliation | 1013 | + + + | Race | Unknown | + + + | Ethnic Group | Unknown | + + + Author + + + | Author | [facility] | + + + | Organization | [facility] | + + + | Address | Unknown | + + + | Phone | Unavailable | + + + Support + + + + + | Name | Relationship | Address | Phone | + + + + + | Nestor Miranda | ECON | [address] | | | | | [place] | | | | | [address] | | + + + + + Care Team Providers + +------+ + | Care Title Officer Name | Role | Phone | + [...] + | 02// | Office | [facility] [place] | Tiffani Reyna | Coronary artery | | 2018 | Visit | Card[facility] [place] | NIYAH Sarkar [address] | disease of [place]one | | | | [address] | Nadine Perez F | artery of eastern shoshone | | | | [address] | [place] [address] | heart with stable | | | | [place] [address] | [phone] | angina pectoris | | | | [phone] | | ([facility]) (Primary Dx); | | | | | | S/P PTCA | | | | | | (percutaneous | | | | | | transluminal | | | | | | coronary | | | | | | angioplasty); | | | | | | 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 | | | | | | ([facility]); Chronic | | | | | | atrial fibrillation | | | | | | ([facility]); Moderate to | | | | | | severe mitral | | | | | | regurgitation; | | | | | | 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 ([facility]); PVD | | | | | | (peripheral vascular | | | | | | disease) ([facility]); | | | | | | Chronic obstructive | | | | | | pulmonary disease, | | | | | | unspecified COPD | | | | | | type ([facility]) | +--------+---------+ + + + Social History [...] you fasting labs to be done at [facility] I have added Digoxin 125 mcg [...] here today for urgent follow-up at the [facility] of Dr. Geronimo for reports of increased [...] on warfarin for his atrial fibrillation with [id number] VASC of 4 and Plavix for chris [...] reports that he tries to walk in [employer] 3-4 times per week and come walk [...] illicit drug use. Exercises with walking in [employer] 2-3 time s per week, can go to times around the store and tolerates. . Lives in [place]. Outpatient Medications Prior to Visit Medication Sig [...] No results found for: METF, NMETFX, TFNMFX, [id number], [id number], TOTEPI IMAGING /PROCEDURES ; Last Lexiscan Cardiolite [...] pulmonary HTN, RVSP 36.9 mm Hg Echo (09[facility]27/[facility]): moderate global hypokinesis, EF 35-40%, [...] barbara spears. 1. 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 S/P PTCA (percutaneous transluminal coronary angioplasty) 3. Dilated cardiomyopathy (HCC) 4. Chronic atrial fibrillation ([facility]) 5. Moderate to severe mitral regurgitation 6. Chronic combined systolic and diastolic heart failure ([facility]) 7. PVD (peripheral vascular disease) ([facility]) 8. Chronic obstructive pulmonary disease, unspecified COPD type ([facility]) 9. Type 2 diabetes mellitus without complication, without long-term current use of insulin ([facility]) 10. Mixed hyperlipidemia 11. Encounter for monitoring [...] past surgical history. Problem list. NIYAH Epstein Located Within [facility] Cardiology 07/23/2017in this encounter Plan of Treatment +--------+---------+ + + + | Date | Type | Specialty | Care Team | Description | +--------+---------+ + + + | 10/23/ | Office | Cardiology | Jerman Geronimo, | | | 2017 | Visit | | [address] | | | | | | [place], | | | | | | [place] [address] | | | | | | [phone] | | | | | | | | +--------+---------+ + + + + +--------+ + + | Name | Priori | Associated Diagnoses | Order Schedule | | | ty | | | + +--------+ + + | Digoxin level | Routin | Coronary artery | Expected: | | | e | disease of eastern shoshone | 07/23/2017, Expires: | | | | artery of eastern sh[place] | 07/23/2018 | | | | heart with stable | | | | | angina pectoris | | | | | ([facility]) S/P PTCA | | | | | (percutaneous | | | | | transluminal | | | | | coronary | | | | | angioplasty) | | | | | Chronic atrial | | | | | fibrillation ([facility]) | | | | | Encounter for | | | | | monitoring digoxin | | | | | therapy | | + +--------+ + + | CBC W/Auto Diff (Reflex to | Routin | Chronic atrial | Expected: | | Manual) | e | fibrillation ([facility]) | 07/23/2017, Expires: | | | | [...] + + + + | Calculated R [place] | 89 | degrees | + + + + | Calculated T [place] | -38 | degrees | + + + + | Diagnosis | Please refer to Providers office visit note | | | | for Providers Interpretation.Confirmed by | | | | [facility] [place] Read Only, NIKOLAS Mccoy ([id number]), | | | | market editor Johnson Kimble ([id number]) on 07/23/2017 | | | | 3:38:03 PM | | + + + + + + + | Specimen | Performing Laboratory | + + + | | [facility] [address] [place] [address] | + + + in this encounter Visit Diagnoses + + | Diagnosis | + + | Coronary artery disease of eastern sh[place] artery of [place] heart with stable angina pectoris | | (HCC) - Primary | + + | S/P PTCA (percutaneous transluminal coronary angioplasty) | + + | Postsurgical percutaneous transluminal coronary angioplasty status | + + | Dilated cardiomyopathy ([facility]) | + + | Other primary cardiomyopathies | + + | Chronic atrial fibrillation (HCC) | + + | Atrial fibrillation | + + | Moderate to severe mitral regurgitation | + + | Chronic combined systolic and diastolic heart failure (HCC) | + + | Chronic combined systolic and diastolic heart failure | + + | PVD (peripheral vascular disease) ([facility]) | + + | Peripheral vascular disease, [...]
--- OUTSIDE RECORDS SUMMARY | 2017-09-25 05:30 | XMS | Clinical Summary ---
Demographics + + + | Address | [address] | | | [place] [address] | + + + | Home Phone | | + + + | Preferred Language | Unknown | + + + | Marital Status | | + + + | Catholic Affiliation | Unknown | + + + | Race | Unknown | + + + | Ethnic Group | Unknown | + + + Author + + + | Author | [facility] | | | and [place] | + + + | Organization | [facility] | | | and [place] | [...] Team Providers + +------+ + | Care C++ Professor Name | Role | Phone | + [...] | | | + + +-------+---------+------+------+-------+ | [place]-3 Fatty | Take 1,000 mg by | [...] + + + + | Overview: CARLOSU [id number] Decision | + + +---------+---+ | C [...]
--- NOTE | 2017-09-25 07:42 | EKG ---
[facility] [address] [place] [address] \T\ T wave abnormality, consider inferolateral ischemia Abnormal ECG When compared with ECG of 16-APR-2017 08:49, ST more depressed in Anterior leads T wave inversion now evident in Lateral leads Confirmed by COSMO GALLEGO MD ([id number]) on 09/25/2017 7:42:37 AM Electronically Signed By: COSMO GALLEGO MD 09/25/17 0742 PATIENT NAME: BEAUONEIDA CAMI Electrocardiogram DATE OF : 35 PHYSICIAN: COSMO GALLEGO MD REPORT #: [id number] REPORT IS CONFIDENTIAL AND NOT TO BE RELEASED WITHOUT AUTHORIZATION
--- NOTE | 2017-09-25 08:42 | NUR ---
PATIENT SITTING UP ON SIDE OF BED. PATIENTS IN ROOM. RN IN ROOM. CALL LIGHT WITHIN REACH. NO OTHER NEEDS AT THIS TIME.
--- NOTE | 2017-09-25 08:54 | NUR ---
TO ROOM 110 FROM THE ED, REPORT RECEIVED FROM SINTIA GARLAND. TRANSPORTED WITH JOSHUA GARLAND FORCE DISPATCHER ON STRETCHER. PATIENT UP TO BATHROOM WITH STANDBY ASSIST TO USE URINAL. BACK TO BED. IN ROOM. CONTINUOUS PULSE OX ON AND TELEMETRY CONNECTED.
--- NOTE | 2017-09-25 08:55 | NUR ---
DR GALLEGO WAS IN TO DO ADMIT ASSESSMENT. NEW ORDERS RECEIVED. RT IN ROOM GIVING DUONEB TREATMENT. PATIENT HAS EXPIRATORY WHEEZES THROUGHOUT ALL LUNG BHAGAT TO AUSCULTATION.
--- NOTE | 2017-09-25 09:56 | NUR ---
PATIENT SITTING UP ON SIDE OF BED. PATIENTS IN ROOM. RN IN ROOM. CALL LIGHT WITHIN REACH. NO OTHER NEEDS AT THIS TIME.
[2017-09-25] MEDS ORDERED: GLIPIZIDE5 MG PO (10:03)
--- NOTE | 2017-09-25 10:11 | NUR ---
PATIENT IS NOW SALINE LOCKED AND STANDING AT BEDSIDE. STATES STABLE AND NOT LIGHT HEADED OR DIZZY. INSTRUCTED TO CALL IF HE HAS ANY CHANGES. QUINTIN PHARMACIST IN ROOM NOW. OF PATIENT IN ROOM.
--- NOTE | 2017-09-25 10:35 | NUR ---
MED REC COMPLETE WITH [facility] REFILL HISTORY AND PATIENT INTERVIEW. PATIENT TAKES 3 MG WARFARIN DAILY AND IS A PATIENT OF OUR [facility].
--- NOTE | 2017-09-25 10:55 | NUR ---
PATIENT ACCIDENTALLY GIVEN AN EXTRA DOSE OF DIGOXIN THIS AM. NORMAL DOSE IS 125MCG PER DAY, TODAY HE RECEIVED 250MCG. DR GALLEGO NOTIFED AND INFORMED. ORDERS TO HOLD BISOPROLOL FOR NOW AND TO CONTINUE MONITORING TELEMETRY AND VITALS EVERY 4 HOURS.
--- NOTE | 2017-09-25 10:58 | NUR ---
PATIENT INFORMED ABOUT EXTRA DIGOXIN DOSE GIVEN
--- NOTE | 2017-09-25 11:46 | NUR ---
PATIENT SITTING UP IN CHAIR. PATIENTS IN ROOM. CALL LIGHT WITHIN REACH. NO OTHER NEEDS AT THIS TIME.
--- NOTE | 2017-09-25 11:57 | NUR ---
ADMINISTERED 11 UNITS FOR BS OF 329 IN BACK OF ARM. DADA WILL AND DADA MEDINA DOUBLE CHECKED DOSE. PT TOLERATED WELL.
--- NOTE | 2017-09-25 14:08 | NUR ---
PATIENT SITTING UP IN CHAIR WATCHING TV. PATIENTS IN ROOM WATCHING TV WELL. CALL LIGHT WITHIN REACH. FRESH ICE WATER. NO OTHER NEEDS AT THIS TIME.
--- NOTE | 2017-09-25 16:03 | NUR ---
has been up and down in room with in room with him. Has been up in the chair.
--- NOTE | 2017-09-25 16:24 | NUR ---
PATIENT SITTING UP IN CHAIR WATCHING TV. PATIENTS IN ROOM WELL. FRESH ICE WATER. CALL LIGHT WITHIN REACH. NO OTHER NEEDS AT THIS TIME.
--- NOTE | 2017-09-25 17:37 | NUR ---
PATIENT SITTING UP IN CHAIR WATCHING TV. CALL LIGHT WITHIN REACH. PATIENTS IN ROOM. PATIENT STATES NO PAIN. NO OTHER NEEDS AT THIS TIME.
--- NOTE | 2017-09-25 17:41 | NUR ---
BREATH SOUNDS HAVE IMPROVED. DIM BUT NO WHEEZES. RECEIVING NEBS AND STEROIDS. UP WALKING IN ROOM WITH STANDBY ASSIST. STABLE. EATING WELL, ACCU CHECKS HIGH LIKELY FROM STEROIDS. ALERT AND ORIENTED.
--- NOTE | 2017-09-25 20:00 | NUR ---
RECEIVED REPORT FROM DAY SHIFT RN. PATIENT IS CURRENTLY IN THE RESTROOOM. NO NEEDS AT THIS TIME. PATIENT IS INDEPENDENT. AT THE BEDSIDE. CALL LIGHT IN REACH.
--- NOTE | 2017-09-25 20:38 | NUR ---
PATIENTS BLOOD SUGAR WAS OUT OF NORMAL LIMITS. PLACE CALL TO DR GALLEGO. NO NEW ORDERS. FOLLOW SS.
--- NOTE | 2017-09-25 20:50 | NUR ---
PATIENT ASSESMENT COMPLETED. PATIENT IS RESTING IN RECLINER. PATIENT GIVEN EVENING MEDICATIONS PER ORDER. PATIENT DENIES ANY PAIN. PATIENT HOWEVER COMPLAINS OF "A TIGHT FEELING WHEN I BREATH". RT IN THE ROOM TO ADMINISTER SCHEDULED NEB. PATIENT IS ON TELE #3, HR IRREGULAR. PATIENT IS INDEPENDENT IN THE ROOM. PATIENT DENIES ANY FURTHER NEEDS. CALL LIGHT IN REACH.
--- NOTE | 2017-09-25 23:18 | NUR ---
PATIENT IS RESTING IN BED WITH EYES CLOSED. BREATHING IS EVEN AND UNLABORED, RR 18. PATIENT IS ON RA. CALL LIGHT IN REACH.
--- NOTE | 2017-09-26 02:55 | NUR ---
PATIENTS VITALS TAKEN AND RECORDED. PATIENT DENIES ANY NEEDS CALL LIGHT IN [facility].
--- NOTE | 2017-09-26 04:14 | NUR ---
PATIENT IS RESTING BED WITH EYES CLOSED. PATIENTS BREATHING IS EVEN AND UNLABORED, RR 17. PATIENT IS ON TELE #3, HR 75. CALL LIGHT IN REACH.
--- NOTE | 2017-09-26 04:48 | NUR ---
PATIENT RESTED WELL THROUGHOUT THE SHIFT. PATIENT IS INDEPENDENT IN THE ROOM AND IS STEADY ON HIS FEET. PATIENT IS SL, IV FLUSHES WELL. PATIENT IS ON AN ADA/CARDIAC DIET. PATIENT IS ON TELE #3, IRREGULAR, AND HR IN THE 80S-90S. PATIENT IS AAOX3 AND USES CALL LIGHT APPROPRIATELY.
--- NOTE | 2017-09-26 06:25 | NUR ---
PATIENT IS RESTING IN RECLINER AT THIS TIME. PATIENTS MORNING MEDICATIONS GIVEN PER ORDER. PATIENT DENIES ANY NEEDS. PATIENTS LUNG SOUNDS HAVE MUCH IMPROVED. NO NEEDS NOTED CALL LIGHT IN REACH.
--- NOTE | 2017-09-26 07:46 | NUR ---
RECEIVED REPORT FROM DADA SEVILLA. PT IS AWAKE AND SITTING UP IN CHAIR. PT DENIES NEEDS AT THIS TIME. AT BEDSIDE.
--- NOTE | 2017-09-26 07:51 | NUR ---
PATIENT SITTING UP IN CHAIR WATCHING TV. PATIENTS IN ROOM. CALL LIGHT WITHIN REACH. STUDENT NURSE IN ROOM. STUDENT NURSE STATES SHE GOT FRESH ICE WATER FOR THE PATIENT. NO OTHER NEEDS AT THIS TIME.
--- NOTE | 2017-09-26 09:26 | NUR ---
PT SITTING UP IN CHAIR AFTER FINISHING BREAKFAST. IN ROOM. HELPED RN STUDENT [facility] ADMINISTER MEDICATIONS. EXPLAINED ALL SIDE EFFECTS AND PT WAS WELL EDUCATED ON HIS MEDS. VS AND ASSESSMENTS DONE.
--- NOTE | 2017-09-26 10:14 | NUR ---
PATIENT RESTING IN CHAIR. STUDENT NURSE IN ROOM. STUDENT NURSE STATES SHE GOT HIM FRESH WATER AND CALL LIGHT WITHIN REACH. NO OTHER NEEDS AT THIS TIME.
--- NOTE | 2017-09-26 10:52 | NUR ---
PATIENT SITTING UP IN CHAIR TALKING WITH PASTOR MISTRY. IN ROOM WELL. CALL LIGHT WITHIN REACH. NO OTHER NEEDS AT THIS TIME.
--- NOTE | 2017-09-26 11:02 | NUR ---
PT REMAINS IN CHAIR. SET UP FOR SHOWER WHEN PT IS READY. IN ROOM. ADMINISTERED SCHED. PREDNISONE. PT AGAIN AWARE OF WHAT AND WHY HE TAKES IT.
--- NOTE | 2017-09-26 11:31 | NUR ---
PT IN SHOWER WITH ASSIST OF AND RN STUDENT BLANCHE. TELE IN PLACE HR 86.
--- NOTE | 2017-09-26 11:56 | NUR ---
5 UNITS GIVEN FOR CBG OF 209. INSULIN WITNESSED BY DADA MEDINA AND DADA CRYSTAL. PT SITTING UP IN CHAIR EATING LUNCH. AT BEDSIDE. DENIES OTHER NEEDS AT THIS TIME.
--- NOTE | 2017-09-26 12:14 | NUR ---
PT SITTING IN CHAIR, SITTING NEXT TO HIM. BOTH VERY PLEASANT PEOPLE. FEEL GOOD ABOUT THE CARE THEY HAVE RECEIVED HERE. GOOD VISIT, EXTENDED A BLESSING-I WILL CONTINUE TO FOLLOW NEEDED
--- NOTE | 2017-09-26 12:22 | NUR ---
TELE BATTERY REPLACED. LUNCH TRAY CLEARED. IN ROOM. PT DENIES NEEDS AT THIS TIME.
--- NOTE | 2017-09-26 14:29 | NUR ---
PATIENT SITTING UP IN CHAIR WATCHING TV. PATIENTS IN ROOM. NO OTHER NEEDS AT THIS TIME. FRESH ICE WATER. CALL LIGHT WITHIN REACH.
--- NOTE | 2017-09-26 16:24 | NUR ---
PATIENT SITTING UP IN CHAIR WATCHING TV. PATIENTS IN ROOM. FRESH ICE WATER. CALL LIGHT WITHIN REACH. NO OTHER NEEDS AT THIS TIME.
--- NOTE | 2017-09-26 17:28 | NUR ---
CBG OF 174. 3 UNITS OF INSULIN GIVEN. INSULIN WITNESSED BY DADA BARRIENTOS AND DADA WILL. MICROFILM MOUNTER CARMELO IN TO DO PM VITALS. PT DENIES OTHER NEEDS AT THIS TIME. IN ROOM.
--- NOTE | 2017-09-26 17:53 | NUR ---
PT HAD UNEVENTFUL DAY. IN ROOM WITH PT MOST OF DAY. SHOWERED THIS AM. RATE WELL CONTROLLED WITH MEDS. TELE DC'D THIS AFTERNOON. PT HAD DIMINISHED LUNG SOUNDS AND OCCASIONAL EXPIRATORY WHEEZE. PRN NEBS STATES THEY ARE FEELING MUCH BETTER. VERBALIZES UNDERSTANDING OF MEDICATIONS. SL RIGHT WRIST. ROOM AIR. INDEPENDENT IN ROOM, BUT CALLS APPROPRIATELY.
--- NOTE | 2017-09-26 19:54 | NUR ---
REPORT RECEIVED FROM DAY SHIFT RN. PATIENT RESTING IN RECLINER WATCHING TV. IN THE ROOM. PATIENT DENIES ANY NEEDS AT THIS TIME. CALL LIGHT WITHIN REACH.
--- NOTE | 2017-09-26 20:30 | NUR ---
PATIENT MEDICATIONS GIVEN PER ORDER. MASS SPECTROSCOPIST COMPLETED. PATIENT RESTING IN RECLINER WATCHING TV. PATIENT DENIES ANY NEEDS AT THIS TIME. CALL LIGHT WITHIN REACH.
--- NOTE | 2017-09-26 20:35 | NUR ---
VITALS AND I&OS DONE AND CHARTED. FRESH WATER GIVEN. BEDSIDE TABLE AND CALL LIGHT WITHIN REACH. PT SITTING IN HIS CHAIR.
--- NOTE | 2017-09-26 23:26 | NUR ---
PATIENT APPEARS RESTING WITH EYES CLOSED. PATIENT RR 16. CALL LIGHT WITHIN REACH.
--- NOTE | 2017-09-27 01:58 | NUR ---
PATIENT APPEARS TO BE RESTING IN BED WITH EYES CLOSED. RESPIRATORY RATE OF 16. CALL LIGHT WITHIN REACH.
--- NOTE | 2017-09-27 02:57 | NUR ---
PATIENT UP TO RESTROOM INDEPENDENTLY. PATIENT REQUESTED NEB TREATMENT. RT CALLED AND NEB TREATMENT GIVEN PER PATIENT REQUEST. THROAT SPRAY GIVEN TO PATIENT PER PATIENT REQUEST. PATIENT SITTING UP IN RECLINER. CALL LIGHT WITHIN REACH. PATIENT DENIES ANY OTHER NEEDS.
--- NOTE | 2017-09-27 04:46 | NUR ---
PATIENT IS AAOX3. PATIENT RESTED WELL THROUGHOUT THE SHIFT. PATIENT REQUESTED 1 NEB TREATMENT THROUGH THE NIGHT. PATIENT IS ON RA. PATIENT IS INDEPENDENT IN THE ROOM AND STEADY ON HIS FEET. PATIENT IS SL AND IV FLUSHES WELL. PATIENT IS ON A ADA/CARDIAC DIET. PATIENT USES CALL LIGHT APPROPRIATELY.
--- NOTE | 2017-09-27 05:40 | NUR ---
PATIENT RESTING IN RECLINER. PATIENTS DAILY WEIGHT TAKEN. PATIENT DENIES ANY PAIN. PATIENT DENIES ANY OTHER NEEDS AT THIS TIME. CALL LIGHT WITHIN REACH.
--- NOTE | 2017-09-27 05:45 | NUR ---
VITALS AND I&OS DONE AND CHARTED. GARBAGES EMPTIED. BEDSIDE TABLE AND CALL LIGHT WITHIN REACH. PT IS SITTING IN HIS CHAIR AND NEEDS NOTHING ELSE AT THIS TIME.
--- NOTE | 2017-09-27 07:39 | NUR ---
SHIFT CHANGE REPORT RECEIVED FROM DI. PATIENT SITTING IN THE CHAIR IN ROOM. PATIENT DENIES PAIN, NO SOB AT THIS TIME. PATIENT IS ON ROOM. NO APPARENT DISTRESS. CALL LIGHT IN REACH.
[2017-09-27] MEDS ORDERED: AZITHROMYCIN500 MG PO (08:13)
--- NOTE | 2017-09-27 09:15 | NUR ---
IN TO ROOM WITH STUDENT NURSE TO ADMINISTERED MORNING MEDS. PATIENT RESTING IN BED DENIES PAIN AND SOB. SHIFT ASSESSMENT DONE. IV FLUSHED AND IV ABX STARTED. PATIENT IS ON ROOM AIR. RESTING IN CHAIR, CALL LIGHT IN REACH AND AT BEDSIDE.
--- NOTE | 2017-09-27 10:59 | NUR ---
PATIENT RESTING IN THE CHAIR, IN ROOM. DENIES ANY SOB AND PAIN. PLAN FOR DC TODAY.
--- NOTE | 2017-09-27 11:40 | NUR ---
PATIENT RESTING IN THE CHAIR DENIES ANY SOB AT THIS TIME. REPORTS PRODUCTIVE COUGH. MEDICATION EDUCATION DONE BY ALEKSANDAR THE PHARMACIST. IN ROOM WITH PATIENT. CALL LIGHT IN REACH
--- NOTE | 2017-09-27 13:15 | NUR ---
PT SITTING IN RECLINER, HIS BESIDE HIM. HE MENTIONED THAT HE DIDN'T SLEEP WELL LAST NIGHT. I NOTICED THAT HE HAD TO TRY AND CATCH HIS BREATH EVERY SO OFTEN. BOTH SEEMED TO BE IN GOOD SPIRITS, PLAN TO BE WELL ENOUGH [place] REINIER Gtz DAUGHTER GRADUATE. PLEASANT VISIT, PT REQUESTED PRAYER, WILL FOLLOW NEEDED
== END 2017-09-27 12:00 | disposition home or self-care (01) | DRG 190 ==
LOC: ED 04:58 → MS 07:24
PROVIDERS: ADMIT Internal Medicine
DX: J44.1 Chronic obstructive pulmonary disease with (acute) exacerbation (principal); J96.20 Acute and chronic respiratory failure, unspecified whether with hypoxia or hypercapnia; E11.9 Type 2 diabetes mellitus without complications; I25.10 Atherosclerotic heart disease of native coronary artery without angina pectoris; E11.65 Type 2 diabetes mellitus with hyperglycemia; I10 Essential (primary) hypertension; E78.5 Hyperlipidemia, unspecified; Z87.891 Personal history of nicotine dependence
CPT/HCPCS: 36415; 71045; 80048; 80053; 80162; 83735; 83880; 84484; 85025; 85610; 87070; 87205; 93005; 93010; 94640; 94645; 94762; J0456; J2920; J2930; J7030; J7050; J7512

== ENCOUNTER 2018-09-22 10:46 | Emergency (ER) | payer MEDICARE, OTHER ==
[~2018-09-22] VITALS: Ht 170.2 cm; Wt 64.1 kg
--- OUTSIDE RECORDS SUMMARY | ~2018-09-22 | XMS | Encounter Summary ---
Demographics + + + | Address | [address] | | | [place] [address] | + + + | Home Phone | | + + + | Preferred Language | Unknown | + + + | Marital Status | | + + + | Cheondoism Affiliation | 1013 | + + + | Race | Unknown | + + + | Ethnic Group | Unknown | + + + Author + + + | Author | [facility] | + + + | Organization | [facility] | + + + | Address | Unknown | + + + | Phone | Unavailable | + + + Support + + + + + | Name | Relationship | Address | Phone | + + + + + | Nestor Miranda | ECON | [address] | | | | | [place] | | | | | [address] | | + + + + + Care Team Providers + +------+ + | Care Composition Weatherboard Installer Name | Role | Phone | + +------+ + | Nieves Sánchez PA-C | PCP | | + +------+ + Reason for Visit + + + | Reason | Comments | + + + | Follow-up | 3 month aorta/iliac bypass | + + + Encounter Details +--------+---------+ + + + | Date | Type | Department | Care Team | Description | +--------+---------+ + + + | 07/04/ | Office | [facility] | Jennifer Poe, DNP | PAD (peripheral | | 2019 | Visit | Vascular Surgery | [address] | artery disease) | | | | [address] | [place], [place] | ([facility]) (Primary Dx); | | | | [place], [place] | [address] | Status post | | | | [phone] | | insertion of iliac | | | | [phone] | | artery stent; S/P | | | | | | femoral-popliteal | | | | | | bypass surgery; | | | | | | Carotid stenosis, | | | | | | asymptomatic, | | | | | | bilateral | +--------+---------+ + + + Social History [...] + + + | Blood Pressure | 147/70 | 07/04/2018 10:30 AM PST | + + + + | Pulse | 83 | 07/04/2018 10:30 AM PST | + + + + | Temperature | - | - | + + + + | Respiratory Rate | 16 | 07/04/2018 10:30 AM PST | + + + + | Oxygen Saturation | 96% | 07/04/2018 10:30 AM PST | + + + + | Inhaled Oxygen | - | - | | Concentration | | | + + + + | Weight | 63.5 kg (140 lb) | 07/04/2018 10:30 AM PST | + + + + | Height | - | - | + + + + | Body Mass Index | 21.93 | 07/04/2018 10:30 AM PST | + + + + in this encounter Progress Notes Jennifer Poe DNP - 07/04/2018 11:[address] [facility] [address] [place] [address] Office: [phone] DATE OF VISIT: 07/04/2018 PATIENT NAME: Nestor Miranda : 1935; AGE: 83 y.o.; Sex:M PHONE NUMBER: ; ; PROVIDER: Jennifer Poe DNP PRIMARY CARE / REFERRING PHYSICIAN: Nieves Sánchez PA* / Nieves Sánchez / [address] / [place] [phone] REASON FOR EVALUATION / CHIEF COMPLAINT: Vascular Surgery 3 month follow up Visit for right femoral to below knee popliteal artery bypass The patient presents today for a Vascular Surgery 3 months follow up Visit, who is status p ost right femoral to below knee popliteal artery bypass with 6 mm Propaten graft due to rig ht leg claudication with mild rest pain, which was performed on 03/16/2018 at the [facility] Operating Room. The patient also had right leg angiogram with balloon an gioplasty and stenting of bilateral common iliac artery and right external iliac artery on . He has been able to ambulate without difficulty. He denies any claudication or res t pain. He takes plavix and coumadin daily. He reports mild numbness around his right leg in cision area. He has history of chronic back pain. Patient has history of mild bilateral carotid artery stenosis based on ultrasound on 11/23/19 18. The patient currently reports no numbness in the upper or lower extremities, and no rian r or sensory deficits. The patient reports no difficulty in cognitive ability, slurred speec h, or impaired verbal communication capability. VITAL SIGNS: BP 147/70 (Patient Position: Sitting) | Pulse 83 | Resp 16 | Wt 63.5 kg (14 0 lb) | SpO2 96% | BMI 21.93 kg/m PHYSICAL EXAM: Constitutional: Well nourished, no signs of distress Cardiovascular: Normal rate, regular rhythm. Pulmonary/Chest: No respiratory distress. No adventitious sounds. Abdominal: Soft. No abdominal distension or tenderness. Musculoskeletal: Normal range of motion. Extremities: No edema, cyanosis or clubbing. Neurological: He is alert and oriented. No muscle weakness and normal gait. VASCULAR: Palpable femoralpulses were present bilaterally. Dopplerable signals were pre sent in bilateral dorsalis pedis and posterior tibial arteries. Palpable bilateral carotid pulses. IMAGING: US AORTO ILIAC RLE ART UBALDO Bilateral iliac stents widely patent >60% stenosis at origin of right EIA (142-551cm/s) >50% stenosis at origin of left EIA (167 -343 cm/s) Widely patent right fem-pop bypass Monophasic inflow 2 vessel runoff via UBALDO and peroneal [employer] chronically occluded Right UBALDO: 0.89 (PT), 0.88 (DP) Left UBALDO: 1.20 (PT), 1.06 (DP) Right TBI: 0.50, left TBI: 0.86 Assessment & Plan: Peripheral arterial disease with status post femoral to below knee popliteal artery bypass and bilateral iliac artery stenting - The patient is doing well. Patient is asymptomatic at this time. Ultrasound reviewed with patient. Given his lower leg arterial symptoms, I belie ve the need to perform immediate vascular intervention is not critical. However, I've explai misty to the patient that in the event he experiences acute limb ischemia as evidenced by thomas re pain or coldness or new lower leg wounds, the patient should contact me immediately to re turn to my clinic or go to nearby emergency room right away. I recommend exercise regimen to improve his lower extremity arterial flow and strengthen his lower leg muscle function. I e mphasized to his regarding the importance of daily exercise with aerobic activities (i.e., w alking) for 30 minutes a day. Return to vascular clinic in 6 month(s) for further follow-up with arterial duplex ultrasou nd for surveillance study. Hypertension - The patient is advised to maintain his antihypertensive medication to keep s ystolic blood pressure target level of 130-140 mm Hg and diastolic blood pressure level of 7 0-80 mm Hg. The patient is advised that uncontrolled hypertension can accelerate atheroscler otic disease progression. Dyslipidemia - The patient is advised to undergo lipid level evaluation with fasting blood test every 6 months with target LDL level of less than 70 mg/dL. The patient is advised to c ontinue taking antiplatelet daily for life to reduce the risk of myocardial infarction and p eripheral arterial disease ( He is currently on plavix). Additionally, the patient is inform ed that hyperlipidemia can accelerate atherosclerotic disease progression and negatively aff ect the outcome of lower leg vascular interventions. Carotid Artery Stenosis - The patient has asymptomatic mild bilateral carotid artery stenos is. Given the patient s asymptomatic bilateral carotid artery disease, no surgical or inte rventional treatment is necessary at this time. We recommend intensive medical therapy using all available risk reduction strategies for patients with asymptomatic carotid atherosclero sis. Currently viable strategies include statin therapy, antiplatelet therapy, blood pressur e control, and lifestyle modification consisting of smoking cessation, limited alcohol consu mption, weight control, regular aerobic physical activity, and a Mediterranean diet. We alfonso mmend carotid endarterectomy plus intensive medical therapy, rather than intensive medical t reatment alone, for medically stable patients who have a life expectancy of at least five ye ars and a high grade (?80 percent) asymptomatic carotid atherosclerotic stenosis at baseline or progression to ?80 percent stenosis despite intensive medical therapy while under observ ation. We have discussed signs and symptoms of TIA or CVA that would warrant urgent follow u p with vascular clinic or nearest emergency facility such as difficulty speaking, swallowing , unilateral facial droop, unilateral arm or leg weakness, or visual changes. Patient expre sses understanding of these symptoms and to seek urgent follow up should any occur. We plan to follow the patient with surveillance duplex ultrasound. If the repeated carotid duplex sc an showed disease progress with worsening of carotid artery lesion, or if the patient s ca rotid disease becomes symptomatic, further therapeutic treatment including carotid endartere ctomy will be considered. The patient will undergo a repeat carotid duplex scan in 1 year(s) . Jennifer Poe DNP in this encounter Plan of Treatment +--------+---------+ + + + | Date | Type | Specialty | Care Team | Description | +--------+---------+ + + + | 11/26/ | Office | Cardiology | Jerman Geronimo, | | | 2019 | Visit | | MD [address] | | | | | | [place], | | | | | | [place] [address] | | | | | | [phone] | | | | | | | | +--------+---------+ + + + + +--------+ + + | Name | Priori | Associated Diagnoses | Order Schedule | | | ty | | | + +--------+ + + | US lower extremity arterial w | Routin | PAD (peripheral | Expected: 01/01/2019 | | Aorta & Iliacs /UBALDO rest | e | artery disease) | (Approximate), | | | | (HCC) Status post | Expires: 07/04/2019 | | | | insertion of iliac | | | | | artery stent S/P | | | | | femoral-popliteal | | | | | bypass surgery | | + +--------+ + + | US carotid bilateral | Routin | Carotid stenosis, | Expected: 01/01/2019 | | | e | asymptomatic, | (Approximate), | | | | bilateral | Expires: 07/04/2019 | + +--------+ + + as of this encounter Visit Diagnoses + + | Diagnosis | + + | PAD (peripheral artery disease) (HCC) - Primary | + + | Unspecified disorders of arteries and arterioles | + + | Status post insertion of iliac artery stent | + + | Other postprocedural status | + + | S/P femoral-popliteal bypass surgery | + + | Other postprocedural status | + + | Carotid stenosis, asymptomatic, bilateral | + +"
--- OUTSIDE RECORDS SUMMARY | ~2018-09-22 | XMS | Clinical Summary ---
Demographics + + + | Address | [address] | | | [place] [id number] | + + + | Home Phone | | + + + | Preferred Language | Unknown | + + + | Marital Status | | + + + | Spiritism Affiliation | 1013 | + + + | Race | Unknown | + + + | Ethnic Group | Unknown | + + + Author + + + | Author | [facility] | + + + | Organization | [facility] | + + + | Address | Unknown | + + + | Phone | Unavailable | + + + Support + + + + + | Name | Relationship | Address | Phone | + + + + + | Nestor Yanez | ECON | [address] | | | | | [place] | | | | | [address] | | + + + + + Care Team Providers + +------+ + | Care Saddle Lining Stitcher Name | Role | Phone | + +------+ + | Nieves Sánchez PA-C | PP | | + +------+ + Allergies + + + + + + | Active Allergy | Reactions | Severity | Noted | Comments | | | | | Date | | + + + + + + | Ciprofloxacin | Other (See Comments) | Medium | 11/03/19 | Reaction not | | | | | 18 | specified in outside | | | | | | medical records | + + + + + + | Lovastatin | Other (See Comments) | Medium | 11/03/19 | Reaction not | | | | | 18 | specified in outside | | | | | | medical records | + + + + + + | Simvastatin | Other (See Comments) | Medium | | Myalgias & | | | | | | myositis | + + + + + + Current Medications + + +--------+---------+------+------+-------+ | Prescription [...] tablet under | 90 | 12 | 02/ | 03/1 | Activ | | (NITROSTAT) 0.4 MG | the tongue every 5 | tablet | | / | 2/20 | e | | SL tablet | (five) minutes as | | | 17 | 28 | | | | needed for Chest [...] mouth once daily | tablet | | 3/20 | | e | | tablet | | | | 18 | | | + + +--------+---------+------+------+-------+ | potassium chloride | take 1 tablet by | 60 | 11 | 05/1 | | Activ | | (K-DUR) 10 MEQ | mouth twice a day | tablet | | 7/20 | | e | | tablet | with meals | | | 18 | | | + + +--------+---------+------+------+-------+ | diazePAM (VALIUM) | take 1/2 tablet by | | 0 | 05/2 | | Activ | | 5 MG tablet | mouth 30 MINUTES | | | 9/20 | | e | | | PRIOR TO MRI; IF | | | 18 | | | | | NECESSARY MAY TAKE | | | | | | | | OTHER HALF | | | | | | + + +--------+---------+------+------+-------+ | clopidogrel | Take 1 tablet by | 90 | 3 | 11/1 | | Activ | | (PLAVIX) 75 MG | mouth daily. | tablet | | 1/20 | | e | | tablet | | | | 18 | | | + + +--------+---------+------+------+-------+ | DIGITEK 125 MCG | take 1 tablet by | 30 | 11 | 02/0 | | Activ | | tablet | mouth once daily | tablet | | 4/20 | | e | | | | | | 19 | | | + + +--------+---------+------+------+-------+ | | take 1 tablet by | 30 | 11 | 02/1 | | Activ | | bisoprolol-hydrochlo | mouth once daily | tablet | | 2/20 | | e | | rothiazide (ZIAC) | | | | 19 | | | | 10-6.25 MG per | | | | | | | | tablet | | | | | | | + + +--------+---------+------+------+-------+ | torsemide | take 2 tablets by | 60 | 11 | 02/2 | | Activ | | (DEMADEX) 10 MG | mouth once daily | tablet | | 5/20 | | e | | tabletIndications: | | | | 19 | | | | Chronic combined | | | | | | | | systolic and | | | | | | | | diastolic heart | | | | | | | | failure (HCC) | | | | | | | + + +--------+---------+------+------+-------+ | predniSONE | Take 10 mg by mouth. | | | | 08/16 | Disco | | (DELTASONE) 10 MG | | | | | 20 | ntinu | | tablet | | | | | 19 | ed | + + +--------+---------+------+------+-------+ | tiotropium | Inhale 18 mcg into | | | 02/16 | 08/16 | Disco | | (SPIRIVA HANDIHALER) | the lungs. | | | 09/04 | 2/20 | ntinu | | 18 MCG inhalation | | | | 12 | 19 | ed | | capsule | | | | | | | + + +--------+---------+------+------+-------+ | | 2 puffs inhaled | | | 02/16 | 08/16 | Disco | | Ipratropium-Albutero | every 4 hours as | | | 3/20 | 2/20 | ntinu | | l (COMBIVENT IN) | needed for shortness | | | 12 | 19 | ed | | | of breath | | | | | | + + +--------+---------+------+------+-------+ | clopidogrel | Take 1 tablet by | 90 | 0 | 09/1 | 03/1 | Disco | | (PLAVIX) 75 MG | mouth daily. | tablet | | 2/20 | 2/20 | ntinu | | tablet | | | | 18 | 19 | ed | + + +--------+---------+------+------+-------+ | oxyCODONE | Take 1 tablet by | 30 | 0 | 09/2 | 03/1 | Disco | | (ROXICODONE) 5 MG | mouth every 4 (four) | tablet | | 9/20 | 2/20 | ntinu | | immediate release | hours as needed for | | | 18 | 19 | ed | | tablet | Pain (4 to 5). | | | | | | + + +--------+---------+------+------+-------+ | | Take 1 tablet by | 14 | 0 | 09/2 | 03/1 | Disco | | sulfamethoxazole-tri | mouth every 12 | tablet | | 9/20 | 2/20 | ntinu | | methoprim (BACTRIM | (twelve) hours. | | | 18 | 19 | ed | | DS) 800-160 MG per | | | | | | | | tabletIndications: | | | | | | | | Surgical Prophylaxis | | | | | | | + + +--------+---------+------+------+-------+ Active Problems + + + | Problem | Noted Date | + + + | Asthma | 04/03/2018 | + + + | Obstructive chronic bronchitis with acute exacerbation (HCC) | 04/03/2018 | + + + | Gout | 04/03/2018 | + + + | Hyperlipidemia | 04/03/2018 | + + + | Hypertension, benign | 04/03/2018 | + + + | Renal disease | 04/03/2018 | + + + | PAD (peripheral artery disease) (HCC) | 03/13/2018 | + + + | S/P peripheral artery bypass | 03/13/2018 | + + + | S/P PTCA [...] + | Pneumonia due to Streptococcus pneumoniae ([facility]) | 09/30/19 | | | | 16 | 6 | + + + + Encounters +--------+ + + + + | Date | Type | Specialty | Care Team | Description | +--------+ + + + + | 09/04/ | Ancillary | | Jerman Geronimo, | Dilated | | 2019 | Procedure | | MD | cardiomyopathy | | | | | | (HCC); Moderate to | | | | | | severe mitral | | | | | | regurgitation | +--------+ + + + + | 08/27/ | Office | | Jerman Geronimo, | Chronic combined | | 2019 | Visit | | MD | systolic and | | | | | | diastolic congestive | | | | | | heart failure (HCC) | | | | | | (Primary Dx); | | | | | | 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 (HCC); | | | | | | 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 | | | | | | ([facility]); 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 | | | | | | pectoris ([facility]); S/P | | | | | | PTCA (percutaneous | | | | | | transluminal | | | | | | coronary | | | | | | angioplasty); | | | | | | Chronic atrial | | | | | | fibrillation ([facility]); | | | | | | Moderate to severe | | | | | | mitral | | | | | | regurgitation; PVD | | | | | | (peripheral vascular | | | | | | disease) ([facility]) | +--------+ + + + + | 08/12/ | Refill | | Tiffani Reyna | Medication Refill | | 2018 | | | NIYAH Sarkar | | +--------+ + + + + | 07/28/ | Refill | | Jerman Geronimo, | Medication Refill | | 2018 | | | MD | | +--------+ + + + + | 07/22/ | Refill | | Tiffani Reyna | Medication Refill | | 2018 | | | NIYAH Sarkar | | +--------+ + + + + | 07/04/ | Office | | Jennifer Poe DNP | PAD (peripheral | | 2019 | Visit | | | artery disease) | | | | | | (HCC) (Primary Dx); | | | | | | Status post | | | | | | insertion of iliac | | | | | | artery stent; S/P | | | | | | femoral-popliteal | | | | | | bypass surgery; | | | | | | Carotid stenosis, | | | | | | asymptomatic, | | | | | | bilateral | +--------+ + + + + from [...] | | + + +------+ + | Malig hypertherm | Neg Hx | | | + + +------+ + [...] + + + | Blood Pressure | 100/60 | 08/27/2018 4:11 PM PDT | + + + + | Pulse | 60 | 08/27/2018 4:11 PM PDT | + + + + | Temperature | 36.7 C (98 F) | 03/16/2018 4:41 AM PDT | + + + + | Respiratory Rate | 16 | 07/04/2018 10:30 AM PST | + + + + | Oxygen Saturation | 97% | 08/27/2018 4:11 PM PDT | + + + + | Inhaled Oxygen | - | - | | Concentration | | | + + + + | Weight | 63 kg (139 lb) | 08/27/2018 4:11 PM PDT | + + + + | Height | 170.2 cm (5' 7") | 08/27/2018 4:11 PM PDT | + + + + | Body Mass Index | 21.77 | 08/27/2018 4:11 PM PDT | + + + + Plan of Treatment +--------+---------+ + + + | Date | Type | Specialty | Care Team | Description | +--------+---------+ + + + | 11/26/ | Office | | Jerman Geronimo, | | | 2019 | Visit | | MD [address] | | | | | | [place], | | | | | | [place] [address] | | | | | | [phone] | | | | | | | [...] + + + + | Vaccine: Zoster (1 | | | | | of 2) | 5 | | | + + [...] | | | | (Season Ended) | 9 | | | + + + + + Implants + +-------+--------+ +--------+--------+--------+ | Implanted | Type | Area | Manufacture | Device | Expira | Model | | | | | r | | tion | / | | | | | | Identi | Date | Serial | | | | | | fier | | / Lot | + +-------+--------+ +--------+--------+--------+ | Promus Premier Stent 2.25 X | Stent | Heart | [place] | | | / | | 20-07/28/2016Implanted: Qty: 1 | | | MEDICAL | | | [id number] | | on 07/28/2016 by Guerita, | | | PRODUCTS | | | 409 | | MD Kellie | | | | | | | + +-------+--------+ +--------+--------+--------+ | Promus Premier Stent 2.75 X | Stent | Heart | [place] | | | / | | 28-07/28/2016Implanted: Qty: 1 | | | MEDICAL | | | [id number] | | on 07/28/2016 by Guerita, | | | PRODUCTS | | | 323 | | MD Kellie | | | | | | | + +-------+--------+ +--------+--------+--------+ | Epic Vascular | Stent | Right: | [place] | | 05/26/ | [id number] | | Stent-02/27/2018Implanted: | | | SCIENTIFIC | | 2018 | | | Qty: 1 on 02/27/2018 by Sukhi, | | Arteri | | | | 20 / | | Minh Parekh MD | | al | | | | / | | | | | | | | 577 | + +-------+--------+ +--------+--------+--------+ | Express Iliac | Stent | Right: | [place] | | 08/26/ | [id number] | | Stent-02/27/2018Implanted: | | | SCIENTIFIC | | 2020 | [id number] | | Qty: 1 on 02/27/2018 by Sukhi, | | Arteri | | | | 750 / | | Minh Parekh MD | | al | | | | / | | | | | | | | 651 | + +-------+--------+ +--------+--------+--------+ | Express Iliac | Stent | Left: | [place] | | 12/12/ | [id number] | | Stent-02/27/2018Implanted: | | Arteri | SCIENTIFIC | | 2020 | [id number] | | Qty: 1 on 02/27/2018 by Sukhi, | | al | | | | 750 / | | Minh Parekh MD | | | | | | / | | | | | | | | 756 | + +-------+--------+ +--------+--------+--------+ | Express Iliac | Stent | Left: | [place] | | 04/29/ | [id number] | | Stent-02/27/2018Implanted: | | Arteri | SCIENTIFIC | | 2019 | [id number] | | Qty: 1 on 02/27/2018 by Sukhi, | | maru | | | | 750 / | | Minh Parekh MD | | | | | | /[id number] | | | | | | | | 051 | + +-------+--------+ +--------+--------+--------+ | Graft Vas Propaten 6-80mm - | | Right: | [facility] - | | 01/08/ | [id number] | | [id number]: Qty: | | Leg | WLGO | | 2021 | [id number] | | 1 on 03/12/2018 by Minh Isbell | | | | | | /[id number] | | MD Izabella | | | | | | [id number] | | | | | | | | 5 / | + +-------+--------+ +--------+--------+--------+ Procedures + +--------+ + + + | Procedure Name | Priori | Date/Time | Associated Diagnosis | Comments | | | ty | | | | + +--------+ + + + | ECHO OUTSIDE | Routin | 09/04/2018 | Dilated | Results for this | | INTERPRETATION | e | 3:08 PM | cardiomyopathy (HCC) | procedure are in the | | STANDARD | | PDT | Moderate to severe | results section. | | | | | mitral | | | | | | regurgitation | | + +--------+ + + + | EKG STANDARD 12 LEAD | Routin | 08/27/2018 | Chronic combined | Results for this | | | e | 4:17 PM | systolic and | procedure are in the | | | | PDT | diastolic congestive | results section. | | | | | heart failure (HCC) | | + +--------+ + + + | US LE ARTERIAL WITH | Routin | 07/04/2018 | PAD (peripheral | Results for this | | AORTA AND ILIACS/ | e | 10:58 AM | artery disease) | procedure are in the | | UBALDO REST | | PST | ([facility]) Status post | results section. | | | | | insertion of iliac | | | | | | artery stent S/P | | | | | | femoral-popliteal | | | | | | bypass surgery | | + +--------+ + + + from Last 3 Months Results ECHO outside interpretation standard (09/04/2018 3:08 PM) + + + | Impressions | Performed At | + + + | 1. Overall left ventricular systolic function is mild-moderately | [facility] | | impaired with an EF between 40 - 45 %. 2. The right ventricle is | [facility] | | normal in size and function. 3. The left atrium is markedly enlarged. | | | 4. The right atrium is mildly enlarged. 5. Uxuxnita-ri-sfeqjq | | | mitral regurgitation is present, with an eccentric, posteriorly | | | directed jet. 6. There is mild pulmonary hypertension. The right | | | ventricular systolic pressure (pulmonary artery systolic pressure), as | | | measured by Doppler, is 43.2 - 48.2 mm Hg. 7. There are several | | | changes noted in comparison to the previous echocardiographic study, | | | done 08/03/17, as reported below. | | + + + + + + | Narrative | Performed At | + + + | Patient Name: Nestor Yanez Date of : 1935 | [facility] | | Performing Physician: Jerman Geronimo | RADIOLOGY | | | | | INDICATIONS Dilated cardiomyopathy CONCLUSIONS | | | 1. Overall left ventricular systolic function is | | | mild-moderately impaired with an EF between 40 - 45 %. 2. The right | | | ventricle is normal in size and function. 3. The left atrium is | | | markedly enlarged. 4. The right atrium is mildly enlarged. 5. | | | Qpfkesix-ij-gsdwuc mitral regurgitation is present, with an eccentric, | | | posteriorly directed jet. 6. There is mild pulmonary | | | hypertension. The right ventricular systolic pressure (pulmonary | | | artery systolic pressure), as measured by Doppler, is 43.2 - 48.2 mm | | | Hg. 7. There are several changes noted in comparison to the previous | | | echocardiographic study, done 08/03/17, as reported below. FINDINGS | | | -------- ECG rhythm: Atrial fibrillation/flutter. Study: A | | | 2-dimensional transthoracic echocardiogram with m-mode, spectral and | | | color flow Doppler was perfomed. Study: This was a technically | | | adequate study. Left Ventricle: Overall left ventricular systolic | | | function is mild-moderately impaired with an EF between 40 - 45%, | | | slightly increased from the EF of 30 - 35% on the previous study. | | | Left Ventricle: The left ventricle cavity size is normal. Left | | | Ventricle: Left ventricular wall thickness is normal. Left | | | Ventricle: There is mild global hypokinesis of LV contractility. | | | Left Ventricle: Cannot assess diastolic function due to atrial | | | fibrillation. Right Ventricle: The right ventricle is normal in size | | | and function. Left Atrium: The left atrium is markedly | | | enlarged. It was moderately enlarged on the prior study. Right | | | Atrium: The right atrium is mildly enlarged, unchanged from the | | | previous exam. Aortic Valve: The aortic valve appears to be | | | trileaflet. Aortic Valve: The aortic valve is mildly calcified. | | | Aortic Valve: There is no evidence of aortic regurgitation. Aortic | | | Valve: There is no evidence of aortic stenosis. Aortic Valve: Aortic | | | valve is mildly thickened. Mitral Valve: The mitral valve is normal. | | | Mitral Valve: Nebhkhtm-ld-zlcmap mitral regurgitation is present, | | | with an eccentric, posteriorly directed jet, unchanged from the | | | previous exam. Mitral Valve: No evidence of MVP Mitral Valve: | | | . Mitral Valve: Mild mitral annular calcification present. | | | Mitral Valve: Mild thickening of the anterior mitral valve leaflet. | | | Tricuspid Valve: The tricuspid valve appears structurally normal. | | | Tricuspid Valve: Sjtx-ms-jtboteqt tricuspid regurgitation present. | | | Tricuspid Valve: There is mild pulmonary hypertension. Tricuspid | | | Valve: The right ventricular systolic pressure (pulmonary artery | | | systolic pressure), as measured by Doppler, is 43.2 - 48.2 mm Hg, | | | increased from 36.4 mm Hg on the prior study. Pulmonic Valve: The | | | pulmonic valve was not well visualized. Pulmonic Valve: | | | Trace pulmonic regurgitation. Pericardium: There is no pericardial | | | effusion. IVC/Hepatic Veins: The IVC is normal size (1.5-2.5cm) and | | | collapses >50% with sniff, consistent with central venous pressures of | | | 5-10mmHg. Aorta: The aortic root, ascending aorta and aortic arch | | | are normal. Mass: No mass visualized Thrombus: No clot visualized | | | Thrombus: No vegetation visualized. Septum: No ASD observed. | | | Septum: No VSD observed. MEASUREMENTS Ao asc: | | | 3.05 cm Ao Diam: 2.94 cm Ao sinus: 2.[address] junct: | | | 2.76 cm IVC: 1.95 cm LA Major: 5.95 cm EDV(Teich): | | | 116.24 ml IVSd: 1.01 cm LVIDd: 4.96 cm LVPWd: 1.03 cm | | | LVOT Diam: 2.27 cm %FS: 19.36 % EF(Teich): 39.70 % | | | ESV(Teich): 70.09 ml LVIDs: 4.00 cm SV(Teich): 46.15 ml | | | RA Major: 5.99 cm RV Major: 6.80 cm RV Minor: 3.28 cm | | | RV Minor: 2.40 cm LVEF MOD A2C: 46.85 % SV MOD A2C: | | | 36.52 ml LVEF MOD A4C: 46.96 % SV MOD A4C: 45.46 ml EF | | | Biplane: 46.47 % LVEDV MOD BP: 87.46 ml LVESV MOD BP: | | | 46.80 ml LVEDV MOD A2C: 77.94 ml LVLd A2C: 7.22 cm LVEDV | | | MOD A4C: 96.80 ml LVLd A4C: 7.46 cm LVESV MOD A2C: 41.42 | | | ml LVLs A2C: 6.93 cm LVESV MOD A4C: 51.33 ml LVLs A4C: | | | 6.55 cm LAESV(A-L): 114.58 ml LAESV Index (A-L): 65.85 | | | ml/m2 LAAs A2C: 30.64 cm2 LAESV A-L A2C: 127.37 ml LAESV | | | MOD A2C: 121.44 ml LALs A2C: 6.26 cm LAAs A4C: 27.16 cm2 | | | LAESV A-L A4C: 101.56 ml LAESV MOD A4C: 98.75 ml LALs | | | A4C: 6.16 cm RAAs: 23.85 cm2 RAESV A-L: 77.28 ml RAESV | | | MOD: 74.58 ml RALs: 6.24 cm TAPSE: 2.04 cm AV | | | Env.Ti: 261.91 ms AV maxP.44 mmHg AV meanP.43 | | | mmHg AV Vmax: 1.44 m/s AV Vmean: 0.98 m/s AV VTI: 26.02 | | | cm JUSTIN Vmax: 2.49 cm2 JUSTIN (VTI): 2.52 cm2 AVAI Vmax: | | | 0.00 cm2/m2 AVAI (VTI): 0.00 cm2/m2 LVOT Env.Ti: 265.67 ms | | | LVOT maxP.16 mmHg LVOT meanP.71 mmHg LVSI Dopp: | | | 37.77 ml/m2 LVSV Dopp: 65.72 ml LVOT Vmax: 0.88 m/s LVOT | | | Vmean: 0.61 m/s LVOT VTI: 16.22 cm MR maxP.23 mmHg | | | MR meanP.34 mmHg MR Vmax: 5.87 m/s MR Vmean: 4.25 | | | m/s MR VTI: 180.45 cm MV A Herrera: 0.00 m/s MV Dec Gratiot: | | | 7.94 m/s2 MV DecT: 113.82 ms MV E Herrera: 0.90 m/s MV E/A | | | Ratio: 147 E/E' Sept: 10.87 E' Lat: 0.11 m/s E' | | | Sept: 0.08 m/s RAP: 5 mmHg RV S': 0.10 m/s RVSP: | | | 42.89 mmHg TR maxP.89 mmHg TR Vmax: 3.07 m/s | | | [employer] Teacher: Authenticated by: Jerman Geronimo Report Date/Time: | | | 09-04-2018 21:23:14 | | + + + + + | Procedure Note | + + | Ross Newell In - 09/04/2018 9:23 PM PDT Patient Name: Michelle Yanezjacquelin of | | : 5Accession: [id number] Physician: Jerman Prasad | | [place] INDICATIONS | | -Dilated cardiomyopathyCONCLUSIONS 1. Overall left ventricular systolic | | function is mild-moderately impaired with an EF between 40 - 45 %.2. The right ventricle | | is normal in size and function.3. The left atrium is markedly enlarged.4. The right | | atrium is mildly enlarged.5. Sjkwexcx-cu-giquci mitral regurgitation is present, with an | | eccentric, posteriorly directed jet.6. There is mild pulmonary hypertension. The right | | ventricular systolic pressure (pulmonary artery systolic pressure), as measured by | | Doppler, is 43.2 - 48.2 mm Hg. 7. There are several changes noted in comparison to the | | previous echocardiographic study, done 08/03/17, as reported below.FINDINGS--------ECG | | rhythm: Atrial fibrillation/flutter.Study: A 2-dimensional transthoracic echocardiogram | | with m-mode, spectral and color flow Doppler was perfomed. Study: This was a technically | | adequate study.Left Ventricle: Overall left ventricular systolic function is | | mild-moderately impaired with an EF between 40 - 45%, slightly increased from the EF of | | 30 - 35% on the previous study. Left Ventricle: The left ventricle cavity size is | | normal. Left Ventricle: Left ventricular wall thickness is normal. Left Ventricle: There | | is mild global hypokinesis of LV contractility. Left Ventricle: Cannot assess diastolic | | function due to atrial fibrillation.Right Ventricle: The right ventricle is normal in | | size and function.Left Atrium: The left atrium is markedly enlarged. It was moderately | | enlarged on the prior study.Right Atrium: The right atrium is mildly enlarged, unchanged | | from the previous exam.Aortic Valve: The aortic valve appears to be trileaflet. Aortic | | Valve: The aortic valve is mildly calcified. Aortic Valve: There is no evidence of | | aortic regurgitation. Aortic Valve: There is no evidence of aortic stenosis. Aortic | | Valve: Aortic valve is mildly thickened.Mitral Valve: The mitral valve is normal. Mitral | | Valve: Zlafvcln-zz-rcbaec mitral regurgitation is present, with an eccentric, | | posteriorly directed jet, unchanged from the previous exam. Mitral Valve: No evidence of | | MVP Mitral Valve: . Mitral Valve: Mild mitral annular calcification present. Mitral | | Valve: Mild thickening of the anterior mitral valve leaflet.Tricuspid Valve: The | | tricuspid valve appears structurally normal. Tricuspid Valve: Eajx-av-iliyuvid tricuspid | | regurgitation present. Tricuspid Valve: There is mild pulmonary hypertension. Tricuspid | | Valve: The right ventricular systolic pressure (pulmonary artery systolic pressure), as | | measured by Doppler, is 43.2 - 48.2 mm Hg, increased from 36.4 mm Hg on the prior | | study.Pulmonic Valve: The pulmonic valve was not well visualized. Pulmonic Valve: Trace | | pulmonic regurgitation.Pericardium: There is no pericardial effusion.IVC/Hepatic Veins: | | The IVC is normal size (1.5-2.5cm) and collapses >50% with sniff, consistent with | | central venous pressures of 5-10mmHg.Aorta: The aortic root, ascending aorta and aortic | | arch are normal.Mass: No mass visualizedThrombus: No clot visualized Thrombus: No | | vegetation visualized.Septum: No ASD observed. Septum: No VSD | | observed.MEASUREMENTS Ao asc: 3.05 cmAo Diam: 2.94 cmAo sinus: 2.96 | | cmAo st junct: 2.76 cmIVC: 1.95 cmLA Major: 5.95 cmEDV(Teich): 116.24 mlIVSd: | | 1.01 cmLVIDd: 4.96 cmLVPWd: 1.03 cmLVOT Diam: 2.27 cm%FS: 19.36 %EF(Teich): | | 39.70 %ESV(Teich): 70.09 mlLVIDs: 4.00 cmSV(Teich): 46.15 mlRA Major: 5.99 cmRV | | Major: 6.80 cmRV Minor: 3.28 cmRV Minor: 2.40 cmLVEF MOD A2C: 46.85 %SV MOD A2C: | | 36.52 mlLVEF MOD A4C: 46.96 %SV MOD A4C: 45.46 mlEF Biplane: 46.47 %LVEDV MOD | | BP: 87.46 mlLVESV MOD BP: 46.80 mlLVEDV MOD A2C: 77.94 mlLVLd A2C: 7.22 cmLVEDV | | MOD A4C: 96.80 mlLVLd A4C: 7.46 cmLVESV MOD A2C: 41.42 mlLVLs A2C: 6.93 cmLVESV | | MOD A4C: 51.33 mlLVLs A4C: 6.55 cmLAESV(A-L): 114.58 mlLAESV Index (A-L): 65.85 | | ml/m2LAAs A2C: 30.64 [id number] A-L A2C: 127.37 mlLAESV MOD A2C: 121.44 mlLALs A2C: | | 6.26 cmLAAs A4C: 27.16 [id number] A-L A4C: 101.56 mlLAESV MOD A4C: 98.75 mlLALs | | A4C: 6.16 cmRAAs: 23.85 [id number] A-L: 77.28 mlRAESV MOD: 74.58 mlRALs: 6.24 | | cmTAPSE: 2.04 cmAV Env.Ti: 261.91 msAV maxP.44 mmHgAV meanP.43 mmHgAV | | Vmax: 1.44 m/Judson Vmean: 0.98 m/Judson VTI: 26.02 cmAVA Vmax: 2.49 cm2AVA (VTI): | | 2.52 [id number] Vmax: 0.00 cm2/m2AVAI (VTI): 0.00 cm2/m2LVOT Env.Ti: 265.67 msLVOT | | maxP.16 mmHgLVOT meanP.71 mmHgLVSI Dopp: 37.77 ml/m2LVSV Dopp: 65.72 | | mlLVOT Vmax: 0.88 m/sLVOT Vmean: 0.61 m/sLVOT VTI: 16.22 cmMR maxP.23 | | mmHgMR meanP.34 mmHgMR Vmax: 5.87 m/sMR Vmean: 4.25 m/sMR VTI: 180.45 cmMV | | A Herrera: 0.00 m/sMV Dec Gratiot: 7.94 m/s2MV DecT: 113.82 msMV E Herrera: 0.90 m/sMV E/A | | Ratio: 147 E/E' Sept: 10.87 E' Lat: 0.11 m/sE' Sept: 0.08 m/sRAP: 5 mmHgRV | | S': 0.10 m/sRVSP: 42.89 mmHgTR maxP.89 mmHgTR Vmax: 3.07 m/sSonographer: | | Authenticated by: Jerman Gutierrez Date/Time: 09-04-2018 21:23:14IMPRESSION:1. | | Overall left ventricular systolic function is mild-moderately impaired with an EF | | between 40 - 45 %.2. The right ventricle is normal in size and function.3. The left | | atrium is markedly enlarged.4. The right atrium is mildly enlarged.5. [id number] | | mitral regurgitation is present, with an eccentric, posteriorly directed jet.6. There | | is mild pulmonary hypertension. The right ventricular systolic pressure (pulmonary | | artery systolic pressure), as measured by Doppler, is 43.2 - 48.2 mm Hg. 7. There are | | several changes noted in comparison to the previous echocardiographic study, done | | 08/03/17, as reported below. | |EDV(Teich): 116.24 ml | |IVSd: 1.01 cm | |LVIDd: 4.96 cm | |LVPWd: 1.03 cm | |LVOT Diam: 2.27 cm | |%FS: 19.36 % | |EF(Teich): 39.70 % | |ESV(Teich): 70.09 ml | |LVIDs: 4.00 cm | |SV(Teich): 46.15 ml | |RA Major: 5.99 cm | |RV Major: 6.80 cm | |RV Minor: 3.28 cm | |RV Minor: 2.40 cm | |LVEF MOD A2C: 46.85 % | |SV MOD A2C: 36.52 ml | |LVEF MOD A4C: 46.96 % | |SV MOD A4C: 45.46 ml | |EF Biplane: 46.47 % | |LVEDV MOD BP: 87.46 ml | |LVESV MOD BP: 46.80 ml | |LVEDV MOD A2C: 77.94 ml | |LVLd A2C: 7.22 cm | |LVEDV MOD A4C: 96.80 ml | |LVLd A4C: 7.46 cm | |LVESV MOD A2C: 41.42 ml | |LVLs A2C: 6.93 cm | |LVESV MOD A4C: 51.33 ml | |LVLs A4C: 6.55 cm | |LAESV(A-L): 114.58 ml | |LAESV Index (A-L): 65.85 ml/m2 | |LAAs A2C: 30.64 cm2 | |LAESV A-L A2C: 127.37 ml | |LAESV MOD A2C: 121.44 ml | |LALs A2C: 6.26 cm | |LAAs A4C: 27.16 cm2 | |LAESV A-L A4C: 101.56 ml | |LAESV MOD A4C: 98.75 ml | |LALs A4C: 6.16 cm | |RAAs: 23.85 cm2 | |RAESV A-L: 77.28 ml | |RAESV MOD: 74.58 ml | |RALs: 6.24 cm | |TAPSE: 2.04 cm | |AV Env.Ti: 261.91 ms | |AV maxP.44 mmHg | |AV meanP.43 mmHg | |AV Vmax: 1.44 m/s | |AV Vmean: 0.98 m/s | |AV VTI: 26.02 cm | |JUSTIN Vmax: 2.49 cm2 | |JUSTIN (VTI): 2.52 cm2 | |AVAI Vmax: 0.00 cm2/m2 | |AVAI (VTI): 0.00 cm2/m2 | |LVOT Env.Ti: 265.67 ms | |LVOT maxP.16 mmHg | |LVOT meanP.71 mmHg | |LVSI Dopp: 37.77 ml/m2 | |LVSV Dopp: 65.72 ml | |LVOT Vmax: 0.88 m/s | |LVOT Vmean: 0.61 m/s | |LVOT VTI: 16.22 cm | |MR maxP.23 mmHg | |MR meanP.34 mmHg | |MR Vmax: 5.87 m/s | |MR Vmean: 4.25 m/s | |MR VTI: 180.45 cm | |MV A Herrera: 0.00 m/s | |MV Dec [place]: 7.94 m/s2 | |MV DecT: 113.82 ms | |MV E Herrera: 0.90 m/s | |MV E/A Ratio: 147 | |E/E' Sept: 10.87 | |E' Lat: 0.11 m/s | |E' Sept: 0.08 m/s | |RAP: 5 mmHg | |RV S': 0.10 m/s | |RVSP: 42.89 mmHg | |TR maxP.89 mmHg | |TR Vmax: 3.07 m/s | | | |Clothing And Textiles Teacher: | |Authenticated by: Jerman Geronimo | |Report Date/Time: 09-04-2018 21:23:14 | | | |IMPRESSION: | |1. Overall left ventricular systolic function is mild-moderately impaired with an EF betwee n 40 - 45 %. | |2. The right ventricle is normal in size and function. | |3. The left atrium is markedly enlarged. | |4. The right atrium is mildly enlarged. | |5. Gwakvrnp-np-jvyezo mitral regurgitation is present, with an eccentric, posteriorly direc honey jet. | |6. There is mild pulmonary hypertension. The right ventricular systolic pressure (pulmonar y artery systolic pressure), as measured by Doppler, is 43.2 - 48.2 mm Hg. 7. There are thomas ral changes noted in comparison to the | |previous echocardiographic study, done 08/03/17, as reported below. | + + + + + + + | Performing | Address | City/State/Zipcode | Phone Number | | Organization | | | | + + + + + | [facility] | [address] | [place] [address] | | + + + + + EKG STANDARD 12 LEAD (08/27/2018 4:17 PM) + + + + + | Component | Value | Ref Range | Performed At | + + + + + | Ventricular Rate | 69 | BPM | [facility] | + + + + + | Atrial Rate | 59 | BPM | [facility] | + + + + + | QRS Duration | 88 | ms | [facility] | + + + + + | Q-T Interval | 396 | ms | [facility] | + + + + + | QTC Calculation | 424 | ms | [facility] | | (Bezet) | | | | + + + + + | Calculated R [place] | 82 | degrees | [facility] | + + + + + | Calculated T [place] | 2 | degrees | [facility] | + + + + + | Diagnosis | Atrial | | [facility] | | | fibrillationNonspecific | | | | | ST abnormalityAbnormal | | | | | ECGWhen compared with | | | | | ECG of 11-MAR-2018 | | | | | 13:25,No significant | | | | | change was foundPlease | | | | | refer to Providers | | | | | office visit note for | | | | | Providers | | | | | Interpretation.Confirmed | | | | | by [facility] Read Only, | | | | | [facility] Nadine ([id number]), | | | | | dictionary editor Johnson Kimble | | | | | ([id number]) on 08/27/2018 | | | | | 4:45:23 PM | | | + + + + + + + + + + | Performing | Address | City/State/Zipcode | Phone Number | | Organization | | | | + + + + + | [facility] | [address] | [place] [address] | | + + + + + US lower extremity arterial w Aorta & Iliacs /UBALDO rest (07/04/2018 10:58 AM) + + + | Impressions | Performed At | + + + | 1. 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 2. | [facility] | | Greater than 50% stenosis at the left external iliac artery 3. | [facility] | | Widely patent right femoropopliteal bypass graft. Right posterior | | | tibial artery is occluded. 4. Right UBALDO and TBI are mildly | | | diminished. Left UBALDO and tibia are within normal limits. Signed | | | by: Yevgeniy Thomas Sign Date/Time: 07/05/2018 8:35 AM | | + + + + + + | Narrative | Performed At | + + + | ULTRASOUND GUIDED ASPIRATION BODY PART CLINICAL INFORMATION: Right | [facility] | | fem/pop bypass. PROCEDURE: Common iliac artery proximal: 106 | [facility] | | biphasic Common iliac artery mid: 80 biphasic Common iliac artery | | | distal: 140 biphasic External iliac artery proximal: 551 biphasic | | | External iliac artery mid: 155 biphasic External iliac artery distal: | | | 69 biphasic Common femoral artery proximal: 139 monophasic Anterior | | | tibial artery proximal: 133 monophasic anterior tibial artery | | | distal: 3 monophasic Posterior tibial artery proximal: occluded | | | Posterior tibial artery distal: Occluded Monophasic flow of the | | | peroneal artery. Normal diameter of the aorta. No abdominal aortic | | | aneurysm. Bilateral iliac stents are widely patent. Widely patent | | | right femoropopliteal bypass graft. Right UBALDO and TBI are mildly | | | diminished. Left UBALDO and TBI are within normal limits. | | + + + + + | Procedure Note | + + | Ross Newell Results In - 07/05/2018 8:39 AM PST ULTRASOUND GUIDED ASPIRATION BODY PART | | CLINICAL INFORMATION: | | Right fem/pop bypass. | | PROCEDURE: | | Common iliac artery proximal: 106 biphasic | | Common iliac artery mid: 80 biphasic | | Common iliac artery distal: 140 biphasic | | External iliac artery proximal: 551 biphasic | | External iliac artery mid: 155 biphasic | | External iliac artery distal: 69 biphasic | | Common femoral artery proximal: 139 monophasic | | Anterior tibial artery proximal: 133 monophasic | | anterior tibial artery distal: 3 monophasic | | Posterior tibial artery proximal: occluded | | Posterior tibial artery distal: Occluded | | Monophasic flow of the peroneal artery. | | Normal diameter of the aorta. No abdominal aortic aneurysm. | | Bilateral iliac stents are widely patent. | | Widely patent right femoropopliteal bypass graft. | | Right UBALDO and TBI are mildly diminished. | | Left UBALDO and TBI are within normal limits. | | IMPRESSION: | | 1. 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 | | 2. Greater than 50% stenosis at the left external iliac artery | | 3. Widely patent right femoropopliteal bypass graft. Right posterior | | tibial artery is occluded. | | 4. Right UBALDO and TBI are mildly diminished. Left UBALDO and tibia are | | within normal limits. | | Signed by: Yevgeniy Thomas | | Sign Date/Time: 07/05/2018 8:35 AM | + + + + + + + | Performing | Address | City/State/Zipcode | Phone Number | | Organization | | | | + + + + + | [facility] | [address] | [place] [address] | | + + + + + from Last 3 Months Insurance + +--------+ +------+-------+ + | Payer | Benefi | Subscriber | Type | Phone | Address | | | t Plan | ID | | | | | | / | | | | | | | Group | | | | | + +--------+ +------+-------+ + | MEDICARE | MEDICA | [id number] | | | [address] | | | RE | | | | [place], [place] [address] | | | IP-OP | | | | | + +--------+ +------+-------+ + | COMMERCIAL OTHER | COMMER | [id number] | | | | | | CIAL [...] Self | [birth year] Home: | [address] | | | al/[place]ak[place] | | 1935 | [phone] | [place] | | | ron | | | [phone] | [phone] | + +--------+ +--------+ + +
--- OUTSIDE RECORDS SUMMARY | ~2018-09-22 | XMS | Encounter Summary ---
Demographics + + + | Address | [address] | | | [place] [address] | + + + | Home Phone | | + + + | Preferred Language | Unknown | + + + | Marital Status | | + + + | Congregational Affiliation | 1013 | + + + | Race | Unknown | + + + | Ethnic Group | Unknown | + + + Author + + + | Author | [facility] [employer] [facility] | + + + | Organization | [facility] [employer] [facility] | + + + | Address | Unknown | + + + | Phone | Unavailable | + + + Support + + + + + | Name | Relationship | Address | Phone | + + + + + | Nestor Miranda | ECON | [address] | | | | | [place] | | | | | [address] | | + + + + + Care Team Providers + +------+ + | Care Turner Off Name | Role | Phone | + [...] + + | 07/04/ | Office | [facility] | Jennifer Poe, DNP | PAD (peripheral | | 2019 | Visit | Vascular Surgery | [address] | artery disease) | | | | [address] | [place], [place] | ([facility]) (Primary Dx); | | | | [place], [place] | [address] | Status post | | | | [address] | | insertion of iliac | | | | [phone] | | artery stent; S/P | | [...] Jennifer Poe DNP - 07/04/2018 11:00 AM [facility] [address] [place] [address] Office: [phone] DATE OF VISIT: 07/04/2018 PATIENT NAME: Nestor Miranda : 1935; AGE: 83 y.o.; Sex:M PHONE NUMBER: ; ; PROVIDER: Jennifer Poe DNP PRIMARY CARE / REFERRING PHYSICIAN: Nieves Sánchez PA* / Nieves Sánchez / Naila Bruce / [place] [phone] REASON FOR EVALUATION / CHIEF COMPLAINT: Vascular [...] which was performed on 03/16/2018 at the [facility] Operating Room. 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
--- OUTSIDE RECORDS SUMMARY | ~2018-09-22 | XMS | Encounter Summary ---
Demographics + + + | Address | [address] | | | [place] [address] | + + + | Home Phone | | + + + | Preferred Language | Unknown | + + + | Marital Status | | + + + | Yazidi Affiliation | 1013 | + + + | Race | Unknown | + + + | Ethnic Group | Unknown | + + + Author + + + | Author | [facility] [employer] [facility] | + + + | Organization | [facility] [employer] [facility] | + + + | Address | Unknown | + + + | Phone | Unavailable | + + + Support + + + + + | Name | Relationship | Address | Phone | + + + + + | Nestor Miranda | ECON | [address] | | | | | [place] | | | | | [address] | | + + + + + Care Team Providers + +------+ + | Care Business Development Recruiter Name | Role | Phone | + +------+ + | Nieves Sánchez PA-C | PCP | | + +------+ + Encounter Details +--------+ + + + + | Date | Type | Department | Care Team | Description | +--------+ + + + + | 09/04/ | Ancillary | [facility] | Jerman Geronimo, | Dilated | | 2019 | Procedure | ECHO | [address] | cardiomyopathy | | | | | [place], | ([facility]); Moderate to | | | | | [place] [address] | severe mitral | | | | | [phone] | regurgitation | | | | | | | +--------+ + [...] | | 2019 | Visit | | [address] | | | | | | [place], | | | | | | [place] [address] | | | | | | [phone] | | | | | | | [...] this encounter Results ECHO outside interpretation standard (09/04/2018 3:08 [...] The right atrium is mildly enlarged. 5. Knqifjpp-ce-pckftv | | | mitral regurgitation is present, [...] + + + | Patient Name: Nestor Miranda Date of : 1935 | [facility] | | Performing Physician: Jerman Geronimo | [...] is mildly enlarged. 5. | | | Koejhwtg-fh-rjmkkm mitral regurgitation is present, with an eccentric, [...] is normal. | | | Mitral Valve: Nqdyhkvv-rn-vuewze mitral regurgitation is present, | | | [...] structurally normal. | | | Tricuspid Valve: Kahl-yw-iuaktkbz tricuspid regurgitation present. | | | Tricuspid [...] MV A Herrera: 0.00 m/s MV Dec [place]: | | | 7.94 m/s2 MV DecT: 113.82 ms MV E Herrera: 0.90 m/s MV E/A | | | Ratio: 147 E/E' Sept: 10.87 E' Lat: 0.11 m/s E' | | | Sept: 0.08 m/s RAP: 5 mmHg RV S': 0.10 m/s RVSP: | | | 42.89 mmHg TR maxP.89 mmHg TR Vmax: 3.07 m/s | | | Petrographer: Authenticated by: Jerman Geronimo Report Date/Time: | | | 09-04-2018 21:23:14 | | + + + + + | Procedure Note | + + | Ross Newell In - 09/04/2018 9:23 PM PDT Patient Name: Phill Miranda of | | : 5Accession: [id number] Physician: Jerman Prasad | | Lehr INDICATIONS | | -Dilated cardiomyopathyCONCLUSIONS 1. Overall left ventricular systolic | | function is mild-moderately impaired with an EF between 40 - 45 %.2. The right ventricle | | is normal in size and function.3. The left atrium is markedly enlarged.4. The right | | atrium is mildly enlarged.5. Acbfipeo-kj-sqivot mitral regurgitation is present, with an | [...] valve is normal. Mitral | | Valve: Ejniqrjz-lq-cozdnr mitral regurgitation is present, with an eccentric, | | posteriorly directed jet, unchanged from the previous exam. Mitral Valve: No evidence of | | MVP Mitral Valve: . Mitral Valve: Mild mitral annular calcification present. Mitral | | Valve: Mild thickening of the anterior mitral valve leaflet.Tricuspid Valve: The | | tricuspid valve appears structurally normal. Tricuspid Valve: Ivsm-cm-abkfafmd tricuspid | | regurgitation present. Tricuspid Valve: [...] (A-L): 65.85 | | ml/m2LAAs A2C: 30.64 [id number] A-L A2C: 127.37 mlLAESV MOD A2C: 121.44 mlLALs A2C: | | 6.26 cmLAAs A4C: 27.16 lj1DZXHB A-L A4C: 101.56 mlLAESV MOD A4C: 98.75 mlLALs | | A4C: 6.16 cmRAAs: 23.85 [id number] A-L: 77.28 mlRAESV MOD: 74.58 mlRALs: 6.24 | | cmTAPSE: 2.04 cmAV Env.Ti: 261.91 msAV maxP.44 mmHgAV meanP.43 mmHgAV | | Vmax: 1.44 m/Judson Vmean: 0.98 m/Judson VTI: 26.02 cmAVA Vmax: 2.49 cm2AVA (VTI): | | 2.52 vm0ANKO Vmax: 0.00 cm2/m2AVAI (VTI): 0.00 cm2/m2LVOT Env.Ti: 265.67 msLVOT | | maxP.16 mmHgLVOT meanP.71 mmHgLVSI Dopp: 37.77 ml/m2LVSV Dopp: 65.72 | | mlLVOT Vmax: 0.88 m/sLVOT Vmean: 0.61 m/sLVOT VTI: 16.22 cmMR maxP.23 | | mmHgMR meanP.34 mmHgMR Vmax: 5.87 m/sMR Vmean: 4.25 m/sMR VTI: 180.45 cmMV | | A Herrera: 0.00 m/sMV Dec [place]: 7.94 m/s2MV DecT: 113.82 msMV E Herrera: [...] enlarged.4. The right atrium is mildly enlarged.5. Tawdngdu-tf-rrtwtg | | mitral regurgitation is present, with [...] m/s | |AV VTI: 26.02 cm | |UJSTIN Vmax: 2.49 cm2 | |JUSTIN (VTI): 2.52 [...] A Herrera: 0.00 m/s | |MV Dec [place]: 7.94 m/s2 | |MV DecT: 113.82 ms | |MV E Herrera: 0.90 m/s | |MV E/A Ratio: 147 | |E/E' Sept: 10.87 | |E' Lat: 0.11 m/s | |E' Sept: 0.08 m/s | |RAP: 5 mmHg | |RV S': 0.10 m/s | |RVSP: 42.89 mmHg | |TR maxP.89 mmHg | |TR Vmax: 3.07 m/s | | | |Petrographer: | |Authenticated by: Jerman Geronimo | |Report Date/Time: 09-04-2018 21:23:14 | | | |IMPRESSION: | |1. Overall left ventricular systolic function is mild-moderately impaired with an EF betwee n 40 - 45 %. | |2. The right ventricle is normal in size and function. | |3. The left atrium is markedly enlarged. | |4. The right atrium is mildly enlarged. | |5. Follvitt-xr-wgxlyc mitral regurgitation is present, with an eccentric, [...] [facility] | [address] | [place] [address] | | + + + + + in this encounter Visit Diagnoses + + | Diagnosis | + + | Dilated cardiomyopathy (HCC) | + + | Other primary cardiomyopathies | + + | Moderate to severe mitral regurgitation | + +"
--- OUTSIDE RECORDS SUMMARY | ~2018-09-22 | XMS | Clinical Summary ---
Demographics + + + | Address | [address] | | | [place] [address] | + + + | Home Phone | | + + + | Preferred Language | Unknown | + + + | Marital Status | | + + + | Jehovah'S Witness Affiliation | 1013 | + + + | Race | Unknown | + + + | Ethnic Group | Unknown | + + + Author + + + | Author | [facility] [employer] [facility] | + + + | Organization | [facility] [employer] 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 | | | | | | pectoris ([facility]); S/P | | | | | | PTCA (percutaneous | | | | | | transluminal | | | | | | coronary | | | | | | angioplasty); | | | | | | Chronic atrial | | | | | | fibrillation ([facility]); | | | | | | Moderate to severe | | | | | | mitral | | | | | | regurgitation; PVD | | | | | | (peripheral vascular | | | | | | disease) ([facility]) | +--------+ + + + + [...] | | | | | | [place] [address] | | | | | | [phone] | | | | | | | [...] | | | MEDICAL | | | /[id number] | | on 07/28/2016 by Guerita, | | | PRODUCTS | | | 409 | | MD Kellie | | | | | | | + +-------+--------+ +--------+--------+--------+ | Promus Premier Stent 2.75 X | Stent | Heart | [place] | | | / | | 28-07/28/2016Implanted: Qty: 1 | | | MEDICAL | | | /[id number] | | on 07/28/2016 by Guerita, | | | PRODUCTS | | | 323 | | MD Kellie | | | | | | | + +-------+--------+ +--------+--------+--------+ | Epic Vascular | Stent | Right: | [place] | | 05/26/ | [id number] | | Stent-02/27/2018Implanted: | | | SCIENTIFIC | | 2018 | | | Qty: 1 on 02/27/2018 by Sukhi, | | Arteri | | | | 20 / | | Minh aPrekh MD | | al | | | | / | | | | | | | | 577 | + +-------+--------+ +--------+--------+--------+ | Express Iliac | Stent | Right: | [place] | | 08/26/ | [id number] | | Stent-02/27/2018Implanted: | | | SCIENTIFIC | | 2020 | [id number] | | Qty: 1 on 02/27/2018 by Sukhi, | | Arteri | | | | 750 / | | Minh Parekh MD | | al | | | | / | | | | | | | | 651 | + +-------+--------+ +--------+--------+--------+ | Express Iliac | Stent | Left: | [place] | | 12/12/ | [id number] | | Stent-02/27/2018Implanted: | | Arteri | SCIENTIFIC | | 2020 | [id number] | | Qty: 1 on 02/27/2018 by Sukhi, | | al | | | | 750 / | | Minh Parekh MD | | | | | | / | | | | | | | | 756 | + +-------+--------+ +--------+--------+--------+ | Express Iliac | Stent | Left: | [place] | | 04/29/ | [id number] | | Stent-02/27/2018Implanted: | | Arteri | SCIENTIFIC | | 2019 | [id number] | | Qty: 1 on 02/27/2018 by Sukhi, | | maru | | | | 750 / | | Minh Parekh MD | | | | | | /[id number] | | | | | | | | 051 | + +-------+--------+ +--------+--------+--------+ | Graft Vas Propaten 6-80mm - | | Right: | [facility] - | | 01/08/ | [id number] | | [id number]: Qty: | | Leg | WLGO | | 2021 | 80A | | 1 on 03/12/2018 by Minh Isbell | | | | | | /[id number] | | MD Izabella | | | [...] | UBALDO REST | | PST | ([facility]) Status post | results section. | [...] The right atrium is mildly enlarged. 5. Xlphwlzz-fy-xjljow | | | mitral regurgitation is present, [...] Nestor Yanez Date of : 1935 | [facility] | | Performing Physician: Jerman Geronimo | [...] is mildly enlarged. 5. | | | Jpamemkm-zj-teeszv mitral regurgitation is present, with an eccentric, [...] is normal. | | | Mitral Valve: Klcorftu-ob-wmrbgx mitral regurgitation is present, | | | [...] structurally normal. | | | Tricuspid Valve: Ftjs-fi-foqslqsz tricuspid regurgitation present. | | | Tricuspid [...] MV A Herrera: 0.00 m/s MV Dec [place]: | | | 7.94 m/s2 MV DecT: 113.82 ms MV E Herrera: 0.90 m/s MV E/A | | | Ratio: 147 E/E' Sept: 10.87 E' Lat: 0.11 m/s E' | | | Sept: 0.08 m/s RAP: 5 mmHg RV S': 0.10 m/s RVSP: | | | 42.89 mmHg TR maxP.89 mmHg TR Vmax: 3.07 m/s | | | Canary Breeder: Authenticated by: Jerman Geronimo Report Date/Time: | | | 09-04-2018 21:23:14 | | + + + + + | Procedure Note | + + | Ross Newell In - 09/04/2018 9:23 PM PDT Patient Name: Michelle Yanezjacquelin of | | : 5Accession: [id number] Physician: Jerman Prasad | | Lehr INDICATIONS | | -Dilated cardiomyopathyCONCLUSIONS 1. Overall left ventricular systolic | | function is mild-moderately impaired with an EF between 40 - 45 %.2. The right ventricle | | is normal in size and function.3. The left atrium is markedly enlarged.4. The right | | atrium is mildly enlarged.5. Weikpcrg-ml-wxziqo mitral regurgitation is present, with an | [...] valve is normal. Mitral | | Valve: Gqysltpk-sv-voqmlf mitral regurgitation is present, with an eccentric, | | posteriorly directed jet, unchanged from the previous exam. Mitral Valve: No evidence of | | MVP Mitral Valve: . Mitral Valve: Mild mitral annular calcification present. Mitral | | Valve: Mild thickening of the anterior mitral valve leaflet.Tricuspid Valve: The | | tricuspid valve appears structurally normal. Tricuspid Valve: Wtpq-iq-syfodlgi tricuspid | | regurgitation present. Tricuspid Valve: [...] (A-L): 65.85 | | ml/m2LAAs A2C: 30.64 ol6DNOTV A-L A2C: 127.37 mlLAESV MOD A2C: 121.44 mlLALs A2C: | | 6.26 cmLAAs A4C: 27.16 oo2KLUXF A-L A4C: 101.56 mlLAESV MOD A4C: 98.75 mlLALs | | A4C: 6.16 cmRAAs: 23.85 np6HASSU A-L: 77.28 mlRAESV MOD: 74.58 mlRALs: 6.24 | | cmTAPSE: 2.04 cmAV Env.Ti: 261.91 msAV maxP.44 mmHgAV meanP.43 mmHgAV | | Vmax: 1.44 m/Judson Vmean: 0.98 m/Judson VTI: 26.02 cmAVA Vmax: 2.49 cm2AVA (VTI): | | 2.52 br0CQCT Vmax: 0.00 cm2/m2AVAI (VTI): 0.00 cm2/m2LVOT Env.Ti: 265.67 msLVOT | | maxP.16 mmHgLVOT meanP.71 mmHgLVSI Dopp: 37.77 ml/m2LVSV Dopp: 65.72 | | mlLVOT Vmax: 0.88 m/sLVOT Vmean: 0.61 m/sLVOT VTI: 16.22 cmMR maxP.23 | | mmHgMR meanP.34 mmHgMR Vmax: 5.87 m/sMR Vmean: 4.25 m/sMR VTI: 180.45 cmMV | | A Herrera: 0.00 m/sMV Dec [place]: 7.94 m/s2MV DecT: 113.82 msMV E Herrera: [...] enlarged.4. The right atrium is mildly enlarged.5. Jsbmbboa-uw-dmbapz | | mitral regurgitation is present, with [...] A Herrera: 0.00 m/s | |MV Dec [place]: 7.94 m/s2 | |MV DecT: 113.82 ms | |MV E Herrera: 0.90 m/s | |MV E/A Ratio: 147 | |E/E' Sept: 10.87 | |E' Lat: 0.11 m/s | |E' Sept: 0.08 m/s | |RAP: 5 mmHg | |RV S': 0.10 m/s | |RVSP: 42.89 mmHg | |TR maxP.89 mmHg | |TR Vmax: 3.07 m/s | | | |Canary Breeder: | |Authenticated by: Jerman Geronimo | |Report Date/Time: 09-04-2018 21:23:14 | | | |IMPRESSION: | |1. Overall left ventricular systolic function is mild-moderately impaired with an EF betwee n 40 - 45 %. | |2. The right ventricle is normal in size and function. | |3. The left atrium is markedly enlarged. | |4. The right atrium is mildly enlarged. | |5. Prpwgqsb-wu-xikwgr mitral regurgitation is present, with an eccentric, [...] | + + + + + | [facility] | [address] | [place] [address] | | + + + + + [...] + + + + | Calculated R [place] | 82 | degrees | [facility] | + + + + + | Calculated T [place] | 2 | degrees | [facility] EKG | + + + + + | Diagnosis | Atrial | | [facility] | | | fibrillationNonspecific | | [...] | | | | | by [facility] [place] Read Only, | | | | | [facility]ine ([id number]), | | | | | telegraph editor Johnson Kimble | | | | | ([id number]) on 08/27/2018 | | | | | 4:45:23 PM | | | + + + + + + + + + + | Performing | Address | City/State/Zipcode | Phone Number | | Organization | | | | + + + + + | [facility] | [address] | [place] [address] | | + + + + + [...] [facility] | [address] | [place] [address] | | + + + + + [...] +------+-------+ + | MEDICARE | MEDICA | [id number] | | | [address] | | | RE | | | | [place], [place] [address] | | | IP-OP | | | | | + +--------+ +------+-------+ + | COMMERCIAL OTHER | COMMER | [id number] | | | | | | CIAL [...] | | | ron | | | [phone] | [phone] | + +--------+ +--------+ + +
--- OUTSIDE RECORDS SUMMARY | ~2018-09-22 | XMS | Clinical Summary ---
Demographics + + + | Address | [address] | | | [place] [address] | + + + | Home Phone | | + + + | Preferred Language | Unknown | + + + | Marital Status | | + + + | Hinduism Affiliation | Unknown | + + + | Race | White | + + + | Ethnic Group | Not or | + + + Author + + + | Author | [facility] | + + + | Organization | [facility] | + + + | Address | Unknown | + + + | Phone | Unavailable | + + + Care Team Providers + +------+ + | Care Men'S Basketball Coach Name | Role | Phone | + +------+ + PP | Unavailable | + +------+ + Source Comments [facility] and [facility] InPatient.[facility] Allergies Not on File Current [...] file Results Not on filefrom Last 3 Months Insurance + +--------+ +--------+ + + | Payer | Benefi | Subscriber | Type | Phone | Address | | | t Plan | ID | | | | | | / | | | | | | | Group | | | | | + +--------+ +--------+ + + | MEDICARE | MEDICA | xxxxxxxxxx | Medica | [phone] | [address] | | | RE A & | | re | [phone] | [place] [address] | | | B | | | | | + +--------+ +--------+ + + | COMMERCIAL GROUP | COMMER | xxxxxxx | Indemn | | | | | CIAL | | ity | | | | | GROUP | | | | | + +--------+ +--------+ + + + +--------+ +--------+ + + | Guarantor Name | Accoun | Relation to | Date | Phone | Billing Address | | | t Type | Patient | of | | | | | | | | | | + +--------+ +--------+ + + | NESTOR YANEZ | Person | Self [birth year] Home: | [address] | | | al/Fam | | 1935 | [phone] | [place] [address] | | | ron | | | [phone] | | + +--------+ +--------+ + +"
--- OUTSIDE RECORDS SUMMARY | ~2018-09-22 | XMS | Encounter Summary ---
Demographics + + + | Address | [address] | | | [place] [address] | + + + | Home Phone | | + + + | Preferred Language | Unknown | + + + | Marital Status | | + + + | Latter Day Affiliation | 1013 | + + + | Race | Unknown | + + + | Ethnic Group | Unknown | + + + Author + + + | Author | [facility] | + + + | Organization | [facility] | + + + | Address | Unknown | + + + | Phone | Unavailable | + + + Support + + + + + | Name | Relationship | Address | Phone | + + + + + | Nestor Miranda | ECON | [address] | | | | | [place] | | | | | [address] | | + + + + + Care Team Providers + +------+ + | Care Cnc Specialist Name | Role | Phone | + [...] Description | +--------+--------+ + + + | 08/12/ | Refill | BRYAN Spivye | Tiffani Reyna | Medication Refill | | 2019 | | Cardiology [facility] | NIYAH [address] | | | | | [address] | Nadine Perez F | | | | | [address] | [place] [address] | | | | | [place] [address] | [phone] | | | | | [phone] | | | +--------+--------+ + + + [...] | 11/26/ | Office | Cardiology | GarzynaJerman, | | | 2018 | Visit | | MD [address] | | | | | | [place], | | | | | | [place] [address] | | | | | | [phone] | | | | | | | | +--------+---------+ + + + as of this encounter Visit Diagnoses + + | Diagnosis | + + | Chronic combined systolic and diastolic heart failure (HCC) | + + | Chronic combined systolic and diastolic heart failure | + +"
--- OUTSIDE RECORDS SUMMARY | ~2018-09-22 | XMS | Clinical Summary ---
Demographics + + + | Address | [address] | | | [place] [address] | + + + | Home Phone | | + + + | Preferred Language | Unknown | + + + | Marital Status | | + + + | Adventism Affiliation | Unknown | + + + | Race | White | + + + | Ethnic Group | Not or | + + + Author + + + | Author | [facility] | + + + | Organization | [facility] | + + + | Address | Unknown | + + + | Phone | Unavailable | + + + Care Team Providers + +------+ + | Care Supervisor Gear Repair Name | Role | Phone | + +------+ + PP | Unavailable | + +------+ + Source Comments [facility] InPatient.[facility] Allergies Not on File Current [...] | MEDICA | xxxxxxxxxx | Medica | [phone] | [address] | | | RE A & | | re | [phone] | [place] [address] | | | B | | | [...] Self | [birth year] | Home: | [address] | | | al/Fam | | 1935 | [phone] | [place] [address] | | | ron | | | [phone] | | + +--------+ +--------+ + +"
--- OUTSIDE RECORDS SUMMARY | ~2018-09-22 | XMS | Encounter Summary ---
Demographics + + + | Address | [address] | | | [place] [address] | + + + | Home Phone | | + + + | Preferred Language | Unknown | + + + | Marital Status | | + + + | Jewish Affiliation | 1013 | + + + | Race | Unknown | + + + | Ethnic Group | Unknown | + + + Author + + + | Author | [facility] | + + + | Organization | [facility] | + + + | Address | Unknown | + + + | Phone | Unavailable | + + + Support + + + + + | Name | Relationship | Address | Phone | + + + + + | Nestor Miranda | ECON | [address] | | | | | [place] | | | | | [address] | | + + + + + Care Team Providers + +------+ + | Care Biostatistician Name | Role | Phone | + [...] + | 08/12/ | Refill | BRYAN Spivey | Tiffani Reyna | Medication Refill | | 2019 | | [facility] | [address] | | | | | [address] | Nadine [address] | | | | | [address] | [place] [address] | | | | | [place] [address] | [phone] | | | | | [phone] | | | +--------+--------+ + + + [...] | 11/26/ | Office | Cardiology | GrazynaJerman, | | | 2018 | Visit | | MD [address] | | | | | | [place], | | | | | | [place] [address] | | | | | | [phone] | | | | | | | | +--------+---------+ + + + as of this encounter Visit Diagnoses + + | Diagnosis | + + | Chronic combined systolic and diastolic heart failure (HCC) | + + | Chronic combined systolic and diastolic heart failure | + +"
--- OUTSIDE RECORDS SUMMARY | ~2018-09-22 | XMS | Clinical Summary ---
Demographics + + + | Address | [address] | | | [place] [address] | + + + | Home Phone | | + + + | Preferred Language | Unknown | + + + | Marital Status | | + + + | Catholic Affiliation | 1013 | + + + | Race | Unknown | + + + | Ethnic Group | Unknown | + + + Author + + + | Author | [facility] | | | and [place] | + + + | Organization | [facility] | | | and [place] | + + + | Address | Unknown | + + + | Phone | Unavailable | + + + Support + + + + + | Name | Relationship | Address | Phone | + + + + + | Harriett Miranda | ECON | [address] | | | | | [place] | | | | | [address] | | + + + + + Care Team Providers + +------+ + | Care Enrollment Clerk Name | Role | Phone | + +------+ + | Mike Schwarz DO | PP | Unavailable | + +------+ + Allergies + + + + + + | Active Allergy | Reactions | Severity | Noted | Comments | | | | | Date | | + + + + + + | Ciprofloxacin | Other (See Comments) | | 11/03/19 | Reaction not | | | | | 18 | specified in outside | | | | | | medical records | + + + + + + | Lovastatin | Other (See Comments) | | 11/03/19 | Reaction not | | | | | 18 | specified in outside | | | | | | medical records | + + + + + + | Simvastatin | Other (See Comments) | | | Myalgias & | | | | | | myositis | + + + + + + Medications + + + +---------+------+------+-------+ | Medication | Sig | Dispensed | Refills | Star | End | Statu | | | | | | t | Date | s | | | | | | Date | | | + + + +---------+------+------+-------+ | tiotropium | Inhale 18 mcg into | | 0 | 09/1 | | Activ | | (SPIRIVA HANDIHALER) | the lungs Daily. | | | 3/20 | | e | | 18 mcg inhalation | | | | 12 | | | | capsule | | | | | | | + + + +---------+------+------+-------+ | | 2 puffs inhaled | | 0 | 09/1 | | Activ | | albuterol-ipratropiu | every 4 hours as | | | 3/20 | | e | | m (COMBIVENT) 103-18 | needed for shortness | | | 12 | | | | mcg/puff inhaler | of breath | | | | | | + + + +---------+------+------+-------+ | [place]-3 Fatty | Take 1,000 mg by | | 0 | 09/1 | | Activ | | Acids (FISH OIL | mouth 2 times daily. | | | 3/20 | | e | | CONCENTRATE) 1000 MG | | | | 12 | | | | CAPS | | | | | | | + + + +---------+------+------+-------+ | torsemide | Take 10 mg by mouth | | 0 | 03/0 | | Activ | | (DEMADEX) 10 mg | Daily. | | | 5/20 | | e | | tablet | | | | 18 | | | + + + +---------+------+------+-------+ | aspirin 81 MG | Take 81 mg by mouth | | 0 | | | Activ | | tablet | Daily. | | | | | e | + + + +---------+------+------+-------+ | warfarin | Take 3 mg by mouth | | 0 | | | Activ | | (COUMADIN) 3 MG | Daily. | | | | | e | | tablet | | | | | | | + + + +---------+------+------+-------+ | montelukast | Take 10 mg by mouth | | 0 | | | Activ | | (SINGULAIR) 10 mg | Daily. | | | | | e | | tablet | | | | | | | + + + +---------+------+------+-------+ | allopurinol | Take 100 mg by mouth | | 0 | | | Activ | | (ZYLOPRIM) 100 mg | Daily. | | | | | e | | tablet | | | | | | | + + + +---------+------+------+-------+ | budesonide | Inhale 0.5 mg into | | 0 | | | Activ | | (PULMICORT) 0.5 mg/2 | the lungs 2 times | | | | | e | | mL nebulizer | daily. | | | | | | | solution | | | | | | | + + + +---------+------+------+-------+ | Multiple | Take 1 tablet by | | 0 | | | Activ | | Vitamins-Minerals | mouth Daily. | | | | | e | | (MULTIVITAMIN WITH | | | | | | | | MINERALS) tablet | | | | | | | + + + +---------+------+------+-------+ | arformoterol | Inhale 15 mcg into | | 0 | | | Activ | | (BROVANA) 15 MCG/2ML | the lungs 2 times | | | | | e | | NEBU | daily. | | | | | | + + + +---------+------+------+-------+ | glipiZIDE | Take 5 mg by mouth | | 0 | | | Activ | | (GLUCOTROL) 5 mg | Daily. | | | | | e | | tablet | | | | | | | + + + +---------+------+------+-------+ | roflumilast | Take 250-500 mcg by | | 0 | | | Activ | | (DALIRESP) 500 mcg | mouth Daily. | | | | | e | | tablet | | | | | | | + + + +---------+------+------+-------+ | losartan (COZAAR) | Take 50 mg by mouth | | 0 | | | Activ | | 50 mg tablet | Daily. | | | | | e | + + + +---------+------+------+-------+ | nitroglycerin | Place 0.4 mg under | | 0 | 02/1 | | Activ | | (NITROSTAT) 0.4 mg | the tongue every 5 | | | 1/20 | | e | | SL tablet | minutes as needed. | | | 17 | | | + + + +---------+------+------+-------+ | Cholecalciferol | Take 2,000 Units by | | 0 | | | Activ | | (VITAMIN D-3) 2000 | mouth Daily. | | | | | e | | units CAPS | | | | | | | + + + +---------+------+------+-------+ | potassium chloride | Take 10 mEq by mouth | | 0 | 04/1 | | Activ | | (KLOR-CON) 10 MEQ | 2 times daily. | | | 5/20 | | e | | ER tablet | | | | 17 | | | + + + +---------+------+------+-------+ | | Inhale 3 mLs into | | 0 | | | Activ | | albuterol-ipratropiu | the lungs 4 times | | | | | e | | m (DUONEB) 2.5-0.5 | daily as needed. | | | | | | | mg/3 mL SOLN | | | | | | | + + + +---------+------+------+-------+ | Coenzyme Q-10 100 | Take 100 mg by mouth | | 0 | | | Activ | | MG CAPS | 2 times daily. | | | | | e | + + + +---------+------+------+-------+ | fish oil 1,000 mg | Take 1,000 mg by | | 0 | | | Activ | | capsule | mouth 2 times daily. | | | | | e | + + + +---------+------+------+-------+ | clopidogrel | Take 75 mg by mouth | | 0 | | | Activ | | (PLAVIX) 75 mg | Daily. | | | | | e | | tablet | | | | | | | + + + +---------+------+------+-------+ | warfarin | Take 2 mg by mouth | | 0 | | | Activ | | (COUMADIN) 2 mg | Daily. | | | | | e | | tablet | | | | | | | + + + +---------+------+------+-------+ | atorvaSTATin | Take 20 mg by mouth | | 0 | | | Activ | | (LIPITOR) 20 mg | nightly. | | | | | e | | tablet | | | | | | | + + + +---------+------+------+-------+ | predniSONE | Take 10 mg by mouth | | 0 | | | Activ | | (DELTASONE) 10 mg | Daily. | | | | | e | | tablet | | | | | | | + + + +---------+------+------+-------+ | betamethasone | | | 0 | 05/0 | | Activ | | dipropionate 0.05% | | | | 1/20 | | e | | cream | | | | 18 | | | + + + +---------+------+------+-------+ Active Problems + + + | Problem [...] | + + + | Pulmonary emphysema | | + + + + + | Overview: COLUMBA [id number] Decision | + + +---------+---+ | C O P D | | +---------+---+ Family History + + + + + | Medical History | Relation | Name | Comments | + + + + + | Heart attack | Brother | | [place] | + + + + + | COPD | Father | Mike | Heart & lung problems | | | | Anastacio Miranda | | + + + + + | Heart attack | Father | Mike | [place] | | | | Anastacio Miranda | | + + + + + | No known problems | Maternal | | | | | Grandfath | | | | | er | | | + + + + + | No known problems | Maternal | | | | | Grandmoth | | | | | er | | | + + + + + | Breast cancer | Mother | | Metastatic | + + + + + | No known problems | Paternal | | | | | Grandfath | | | | | er | | | + + + + + | No known problems | Paternal | | | | | Grandmoth | | | | | er | | | + + + + + | Cancer | Sister | | Stomach | + + + + + | Low back pain | Sister | | Bad back | + + + + + | Cancer | Sister | Evelia | | | | | [place] | | + + + + + + + + + + | Relation | Name | Status | Comments | + + + + + | Brother | | | [place] | | | | (Age | | | | | 58) | | + + + + + | Father | Mike | | [place] | | | Anastacio Miranda | (Age | | | | | 54) | | + + + + + | Maternal Grandfather | | | | + + + + + | Maternal Grandmother | | | | + + + + + | Mother | | | Breast cancer | | | | (Age | | | | | 62) | | + + + + + | Paternal Grandfather | | | | + + + + + | Paternal Grandmother | | | | + + + + + | Sister | | Alive | | + + + + + | Sister | Evelia | | | | | [place] | | | + + + + + Social History + + + +--------+ + | Tobacco Use | Types | Packs/Day | Years | Date | | | | | Used | | + + + +--------+ + | Former Smoker | Cigarettes | 2 | 40 | 06/18/1951 - | | | | | | 06/18/1996 | + + + +--------+ + + +---+---+---+ | Smokeless Tobacco: | | | | | Never Used | | | | + +---+---+---+ + + | Comments: very lite first few years, then got heavier, quit twice during this time. for | | about 3 years total | + + + + +---------+ + | Alcohol Use | Drinks/We | oz/Week | Comments | | | ek | | | + + +---------+ + | Yes | | | SOCIAL | + + +---------+ + + + + | Sex Assigned at | Date Recorded | | | | + + + | Not on file | | + + + + + + + | Job Start Date | Occupation | Industry | + + + + | Not on file | Not on file | Not on file | + + + + + + + + | Travel History | Travel Start | Travel End | + + + + + + | No recent travel history available. | + + Last Filed Vital Signs + + + + | Vital Sign | Reading | Time Taken | + + + + | Blood Pressure | 130/73 | 12/31/2017 1419 PDT | + + + + | Pulse | 73 | 11/28/2017 1441 PDT | + + + + | Temperature | - | - | + + + + | Respiratory Rate | 18 | 11/05/2017738 PDT | + + + + | Oxygen Saturation | - | - | + + + + | Inhaled Oxygen | - | - | | Concentration | | | + + + + | Weight | 66.3 kg (146 lb 2.6 | 11/28/20171440 PDT | | | oz) | | + + + + | Height | 170.2 cm (5' 7") | 11/28/20171440 PDT | + + + + | Body Mass Index | 22.89 | 11/28/2017 1441 PDT | + + + + Plan [...] + + | Hemoglobin A1c | | | | | Screening | 3 | | | + + [...] | + + + + + | Adult Annual | | | | | Wellness Visit | 5 | | | + + + + + | Vaccine: Influenza | | | | | (Season Ended) | 9 | | | + + + + + Results Not on filefrom Last 3 Months Insurance + +--------+ +--------+ +---------+--------+ | Payer | Benefi | Subscriber | Effect | Phone | Address | Type | | | t Plan | ID | mony | | | | | | / | | Dates | | | | | | Group | | | | | | + +--------+ +--------+ +---------+--------+ | MEDICARE | MEDICA | [id number] | | [phone] | | Medica | | | RE | | 000-Pr | 5 | | re | | | PART A | | esent | | | | | | AND B | | | | | | + +--------+ +--------+ +---------+--------+ | INDIVIDUAL ASSURANCE | INDIVI | [id number] | | | | Indemn | | COMPANY | DUAL | | 016-Pr | | | ity | | | ASSURA | | esent | | | | | | [place] | | | | | | | | MDCR | | | | | | | | SUPPL | | | | | | + +--------+ +--------+ +---------+--------+ + +--------+ +--------+ + + | Guarantor Name | Accoun | Relation to | Date | Phone | Billing Address | | | t Type | Patient | of | | | | | | | | | | + +--------+ +--------+ + + | Nestor Miranda | Person | Self [birth year] | [address] | | | al/Fam | | 1935 | [phone] | [place] | | | [place]on | | | [address] (Home) | [address] | + +--------+ +--------+ + + Advance Directives Patient has advance care planning documents on file. For more information, please contact:[facility] [place] [address]
--- OUTSIDE RECORDS SUMMARY | ~2018-09-22 | XMS | Encounter Summary ---
Demographics + + + | Address | [address] | | | [place] [address] | + + + | Home Phone | | + + + | Preferred Language | Unknown | + + + | Marital Status | | + + + | Synagogue Affiliation | 1013 | + + + | Race | Unknown | + + + | Ethnic Group | Unknown | + + + Author + + + | Author | [facility] | + + + | Organization | [facility] [employer] [facility] | + + + | Address | Unknown | + + + | Phone | Unavailable | + + + Support + + + + + | Name | Relationship | Address | Phone | + + + + + | Nestor Miranda | ECON | [address] | | | | | [place] | | | | | [address] | | + + + + + Care Team Providers + +------+ + | Care Abattoir Supervisor Name | Role | Phone | + [...] Description | +--------+--------+ + + + | 07/22/ | Refill | BRYAN Spivey | Tiffani Reyna | Medication Refill | | 2019 | | Cardiology [facility] | [address] | | | | | [address] | Nadine [address] | | | | | [address] | [place] [address] | | | | | [place] [address] | [phone] | | | | | [phone] | | | +--------+--------+ + + + [...] | | | | | | [place] [address] | | | | | | [phone] | | | | | | | | +--------+---------+ + + + as of this encounter Visit Diagnoses Not on filein this encounter"
--- OUTSIDE RECORDS SUMMARY | ~2018-09-22 | XMS | Encounter Summary ---
Demographics + + + | Address | [address] | | | [place] [address] | + + + | Home Phone | | + + + | Preferred Language | Unknown | + + + | Marital Status | | + + + | Restorationist Affiliation | 1013 | + + + | Race | Unknown | + + + | Ethnic Group | Unknown | + + + Author + + + | Author | [facility] | + + + | Organization | [facility] | + + + | Address | Unknown | + + + | Phone | Unavailable | + + + Support + + + + + | Name | Relationship | Address | Phone | + + + + + | Nestor Miranda | ECON | [address] | | | | | [place] | | | | | [address] | | + + + + + Care Team Providers + +------+ + | Care Tube Teller Name | Role | Phone | + [...] | | | | [place], | ([facility]); Moderate to | | | | | [place] [address] | severe mitral | | | | | [phone] | regurgitation | | | | | [...] | | | | | | [place] [address] | | | | | | [phone] | | | | | | | [...] The right atrium is mildly enlarged. 5. Siokmojy-ki-wmdksa | | | mitral regurgitation is present, [...] Nestor Miranda Date of : 1935 | [facility] | | Performing Physician: Jerman Geronimo [...] is mildly enlarged. 5. | | | Gffmjewi-yp-dcsgyb mitral regurgitation is present, with an eccentric, [...] is normal. | | | Mitral Valve: Secmdhol-nk-ucnxxv mitral regurgitation is present, | | | [...] structurally normal. | | | Tricuspid Valve: Ocmy-dv-trtwnkso tricuspid regurgitation present. | | | Tricuspid [...] MV A Herrera: 0.00 m/s MV Dec Harrison: | | | 7.94 m/s2 MV DecT: 113.82 ms MV E Herrera: 0.90 m/s MV E/A | | | Ratio: 147 E/E' Sept: 10.87 E' Lat: 0.11 m/s E' | | | Sept: 0.08 m/s RAP: 5 mmHg RV S': 0.10 m/s RVSP: | | | 42.89 mmHg TR maxP.89 mmHg TR Vmax: 3.07 m/s | | | Cardiopulmonary Physical Therapist: Authenticated by: Jerman Geronimo Report Date/Time: | | | 09-04-2018 21:23:14 | | + + + + + | Procedure Note | + + | Ross Newell In - 09/04/2018 9:23 PM PDT Patient Name: Phill Miranda of | | : 5Accession: [id number] Physician: Jerman Prasad | | [place] INDICATIONS | | -Dilated cardiomyopathyCONCLUSIONS 1. Overall left ventricular systolic | | function is mild-moderately impaired with an EF between 40 - 45 %.2. The right ventricle | | is normal in size and function.3. The left atrium is markedly enlarged.4. The right | | atrium is mildly enlarged.5. Xbrqngka-zc-blpemn mitral regurgitation is present, with an | [...] valve is normal. Mitral | | Valve: Xktmxler-op-fyvsit mitral regurgitation is present, with an eccentric, | | posteriorly directed jet, unchanged from the previous exam. Mitral Valve: No evidence of | | MVP Mitral Valve: . Mitral Valve: Mild mitral annular calcification present. Mitral | | Valve: Mild thickening of the anterior mitral valve leaflet.Tricuspid Valve: The | | tricuspid valve appears structurally normal. Tricuspid Valve: Ggoi-mk-uhgsyrvu tricuspid | | regurgitation present. Tricuspid Valve: [...] (A-L): 65.85 | | ml/m2LAAs A2C: 30.64 [id number] A-L A2C: 127.37 mlLAESV MOD A2C: 121.44 mlLALs A2C: | | 6.26 cmLAAs A4C: 27.16 ly4FVTOF A-L A4C: 101.56 mlLAESV MOD A4C: 98.75 mlLALs | | A4C: 6.16 cmRAAs: 23.85 [id number] A-L: 77.28 mlRAESV MOD: 74.58 mlRALs: 6.24 | | cmTAPSE: 2.04 cmAV Env.Ti: 261.91 msAV maxP.44 mmHgAV meanP.43 mmHgAV | | Vmax: 1.44 m/Judson Vmean: 0.98 m/Judson VTI: 26.02 cmAVA Vmax: 2.49 cm2AVA (VTI): | | 2.52 ua8AUVA Vmax: 0.00 cm2/m2AVAI (VTI): 0.00 cm2/m2LVOT Env.Ti: 265.67 msLVOT | | maxP.16 mmHgLVOT meanP.71 mmHgLVSI Dopp: 37.77 ml/m2LVSV Dopp: 65.72 | | mlLVOT Vmax: 0.88 m/sLVOT Vmean: 0.61 m/sLVOT VTI: 16.22 cmMR maxP.23 | | mmHgMR meanP.34 mmHgMR Vmax: 5.87 m/sMR Vmean: 4.25 m/sMR VTI: 180.45 cmMV | | A Herrera: 0.00 m/sMV Dec Harrison: 7.94 m/s2MV DecT: 113.82 msMV E Herrera: [...] enlarged.4. The right atrium is mildly enlarged.5. Goktdizn-bd-bkjkmx | | mitral regurgitation is present, with [...] A Herrera: 0.00 m/s | |MV Dec Harrison: 7.94 m/s2 | |MV DecT: 113.82 ms | |MV E Herrera: 0.90 m/s | |MV E/A Ratio: 147 | |E/E' Sept: 10.87 | |E' Lat: 0.11 m/s | |E' Sept: 0.08 m/s | |RAP: 5 mmHg | |RV S': 0.10 m/s | |RVSP: 42.89 mmHg | |TR maxP.89 mmHg | |TR Vmax: 3.07 m/s | | | |Cardiopulmonary Physical Therapist: | |Authenticated by: Jerman Geronimo | |Report Date/Time: 09-04-2018 21:23:14 | | | |IMPRESSION: | |1. Overall left ventricular systolic function is mild-moderately impaired with an EF betwee n 40 - 45 %. | |2. The right ventricle is normal in size and function. | |3. The left atrium is markedly enlarged. | |4. The right atrium is mildly enlarged. | |5. Zqbtjerk-xh-oqkfnj mitral regurgitation is present, with an eccentric, [...] [facility] | [address] | [place] [address] | | + + + + + in this encounter Visit Diagnoses + + | Diagnosis | + + | Dilated cardiomyopathy (HCC) | + + | Other primary cardiomyopathies | + + | Moderate to severe mitral regurgitation | + +"
--- OUTSIDE RECORDS SUMMARY | ~2018-09-22 | XMS | Encounter Summary ---
Demographics + + + | Address | [address] | | | [place] [address] | + + + | Home Phone | | + + + | Preferred Language | Unknown | + + + | Marital Status | | + + + | Adventism Affiliation | 1013 | + + + | Race | Unknown | + + + | Ethnic Group | Unknown | + + + Author + + + | Author | [facility] | + + + | Organization | [facility] | + + + | Address | Unknown | + + + | Phone | Unavailable | + + + Support + + + + + | Name | Relationship | Address | Phone | + + + + + | Nestor Miranda | ECON | [address] | | | | | [place] | | | | | [address] | | + + + + + Care Team Providers + +------+ + | Care Insulation Blower Name | Role | Phone | + [...] Description | +--------+--------+ + + + | 07/28/ | Refill | BRYAN Allyssa | Jerman Geronimo, | Medication Refill | | 2019 | | Cardiology [place] | [address] | | | | | [address] | [place], | | | | | [place], [place] | [place] [address] | | | | | [address] | [phone] | | | | | [phone] | | | +--------+--------+ + + + [...] | | | | | | [place] [address] | | | | | | [phone] | | | | | | | | +--------+---------+ + + + as of this encounter Visit Diagnoses Not on filein this encounter"
--- OUTSIDE RECORDS SUMMARY | ~2018-09-22 | XMS | Encounter Summary ---
Demographics + + + | Address | [address] | | | [place] [address] | + + + | Home Phone | | + + + | Preferred Language | Unknown | + + + | Marital Status | | + + + | Uatsdin Affiliation | 1013 | + + + | Race | Unknown | + + + | Ethnic Group | Unknown | + + + Author + + + | Author | [facility] | + + + | Organization | [facility] | + + + | Address | Unknown | + + + | Phone | Unavailable | + + + Support + + + + + | Name | Relationship | Address | Phone | + + + + + | Nestor Miranda | ECON | [address] | | | | | [place] | | | | | [address] | | + + + + + Care Team Providers + +------+ + | Care Member Of The Legislative Council Name | Role | Phone | + [...] | | | [address] | [place] [address] | | | | | [place] [address] | [phone] | | | | | [phone] | | | +--------+--------+ + + + [...] | | | | | | [place] [address] | | | | | | [phone] | | | | | | | | +--------+---------+ + + + as of this encounter Visit Diagnoses Not on filein this encounter"
--- OUTSIDE RECORDS SUMMARY | ~2018-09-22 | XMS | Encounter Summary ---
Demographics + + + | Address | [address] | | | [place] [address] | + + + | Home Phone [...] | Author | [facility] | + + + | Organization | [facility] | + + + | Address | Unknown | + + + | Phone | Unavailable | + + + Support + + + + + | Name | Relationship | Address | Phone | + + + + + | Nestor Miranda | ECON | [address] | | | | | [place] | | | | | [address] | | + + + + + Care Team Providers + +------+ + | Care General Matcher Name | Role | Phone | + +------+ + | Nieves Sánchez PA-C | PCP | | + +------+ + Reason for Visit + + + | Reason | Comments | + + + | Follow-up | follow up | + + + Encounter Details +--------+---------+ + + + | Date | Type | Department | Care Team | Description | +--------+---------+ + + + | 08/27/ | Office | BRYAN Spivey | Jerman Geronimo, | Chronic combined | | 2019 | Visit | Cardiology [facility] | MD [address] | systolic and | | | | [address] | [place], | diastolic congestive | | | | [address] | [place] [address] | heart failure (HCC) | | | | [place], [place] [address] | [phone] | (Primary Dx); | | | | [phone] | | 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 (HCC); | | | | | | 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 | | | | | | (HCC); Coronary | | | | | | artery disease of | | | | | | shinnecock artery of | | | | | | shinnecock heart with | | | | | | stable angina | | | | | | pectoris ([facility]); S/P | | | | | | PTCA (percutaneous | | | | | | transluminal | | | | | | coronary | | | | | | angioplasty); | | | | | | Chronic atrial | | | | | | fibrillation ([facility]); | | | | | | Moderate to severe | | | | | | mitral | | | | | | regurgitation; PVD | | | | | | (peripheral vascular | | | | | | disease) ([facility]) | +--------+---------+ + + + Social History [...] PM PDT | + + + + in this encounter Progress Notes Jerman Geronimo MD - 08/27/2018 3:45 PM PDTFormatting of this note may be different from the original. Subjective: Patient ID: Nestor Miranda is a 83 y.o. male. HPI The following portions of [...] of the left proximal iliac artery. He underwen t extensive angioplasty/stenting of both common iliac arteries in the right external iliac a rtery 02/27/18, followed by a right femoral-popliteal bypass surgery 03/12/[address] Isbell. Pre viously, his claudication was fairly limiting, and he could only walk about 2 blocks at a re latively slow pace before he developed bilateral claudication in his calves. This is now mu ch improved. Continued exercise, particularly walking uphill to the point of pain, was stro ngly encouraged to help build collateral circulation. He can now walk several laps of his l ocal [employer] several days per week, without a cart, whereas previously he could sometimes o nly make it to the back of the store, but on other days wanted to sit down almost right away . He remains on Plavix, in addition to warfarin for his atrial fibrillation, which is asymp tomatic, with a controlled rate. He has had several right scleral hemorrhages, which has be en limited. He denies any recent chest pain, pressure or discomfort, palpitations, and seems to be doin g better on Ziac and digoxin. He had 2 CLIFF placed in the first diagonal and ramus intermediu s branches in July,. There is still a moderate, 65-70% stenosis in the mid RCA el t was revascularized, and a repeat nuclear stress test 11/28/16 showed scarring, but no evide nce of ischemia in this territory. There is also no longer any evidence of transient ischem ic dilatation, although the LV is noted to be enlarged on both stress and resting images. His echocardiogram in July, showed no appreciable change in his LV systolic dysfun ction and moderately severe mitral regurgitation. He has no edema, and no signs or symptoms of congestive heart failure today. His echocardiogram will be updated to check the MRNicol santiago, he seems stable at this time. I will see him back in a few months for follow-up. 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 He has [...] 5 days per week without symptoms. -- UBALDO / U/S Legs (1/17/19): > 60% right external iliac stenosis, > 50% left external iliac stenosis, widely patent right femoral bi-popliteal bypass graft, but the right SHRIMP TRAWLER CAPTAIN is occlu ded, right UBALDO, TBI are mildly diminished, with normal values on the left side -- Right Common Femoral - below the knee Popliteal Bypass (03/12/18) -- Angio/SHRIMP TRAWLER CAPTAIN/Stent Legs (02/27/18): Bilateral 7 x 27 mm self-expanding stents in both common iliac arteries, 7 x 40 self-expanding stent in the right external iliac artery -- Carotid U/S (11/22/17): 16-49% ICA stenoses bilaterally -- UBALDO/U/S Legs (11/22/17): 50-69% R common iliac, moderate disease in the right profunda fem priya, right SFA occluded, right UBALDO 0.51, 70-99% left common iliac, 50-69% left external faisal ac, Left UBALDO 0.62 -- Echo (08/03/17): EF 30-35%, normal RV size and function, moderate LAE, moderate-severe MR , borderline pulmonary hypertension (RVSP 36.7 mmHg), no significant changes -- Lexiscan Cardiolite Stress Test (11/28/16): LV [...] from 09/27/15, but was previously normal in 2012), n ormal RV size/function, moderately severe MR, [...] rate. There were rare PVCs -- Echo [facility]09[facility]27/[facility]): moderate global hypokinesis, EF35-40%, marked LAE [...] noted on his abdominal CT scan at [place]. GENITOURINARY: Mild chronic kidney disease, with evidence [...] problems. 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 Diabetes mellitus type II Dilated cardiomyopathy (HCC) Gout Hyperlipidemia Hypertension Moderate mitral regurgitation Pulmonary hypertension, secondary Mild S/P PTCA (percutaneous transluminal coronary angioplasty) 07/28/2016 D1 - 2.25x20 Promus Premier CLIFF; Ramus - 2.75x28 Promus Premier CLIFF Thrush, oral Visual disturbance glasses Past Surgical History Procedure Laterality Date BYPASS GRAFT Right 03/12/2018 Procedure: BYPASS GRAFT - FEMORAL - POPLITEAL; Surgeon: Minh Isbell MD; Location: [facility] IN OR; Service: Vascular; Laterality: Right; CATARACT EXTRACTION Bilateral CORONARY ANGIOPLASTY 07/28/2016 D1 - 2.25x20 Promus Premier CLIFF; Ramus - 2.75x28 Promus Premier CLIFF CORONARY ANGIOPLASTY WITH STENT PLACEMENT EXAMINATION UNDER ANESTHESIA N/A 03/12/2018 Procedure: EXAM UNDER ANESTHESIA; Surgeon: Miki Barry DO; Location: [facility] MAIN OR; Service: Urology; Laterality: N/A; Urinary Choi catheter insertion FINGER AMPUTATION Right finger FOOT SURGERY JOINT FUSION - METATARSAL PHALANGEAL Right thumb KIDNEY STONE SURGERY 2014 nasal septum repair 04/2017 ROTATOR CUFF REPAIR Bilateral Twice on the right, once on the left ROTATOR CUFF REPAIR TONSILLECTOMY 1956 Family History Problem Relation Age of Onset Breast cancer Mother 62 Coronary Artery Disease Father 54 Coronary Artery Disease Brother 58 Gastric cancer Sister Jayla carl Neg Hx reports that he quit smoking about 21 years ago. His smoking use included Cigarettes. He h as a 80.00 pack-year smoking history. He has never used smokeless tobacco. He reports that h e drinks about 1.2 oz of alcohol per week . He reports that he does not use drugs. Allergies Allergen Reactions Ciprofloxacin Other (See Comments) Reaction not specified in outside medical records Lovastatin Other (See Comments) Reaction not specified in outside medical records Simvastatin Other (See Comments) Myalgias & myositis Current Outpatient Prescriptions: allopurinol (ZYLOPRIM) 100 MG tablet, Take 100 mg by mouth daily. , Disp: , Rfl: arformoterol (BROVANA) 15 MCG/2ML NEBU, Take 15 mcg by nebulization 2 (two) times matthew y., Disp: , Rfl: aspirin 81 MG tablet, Take 81 mg by mouth daily. Start taking this when you have sridevi portillo current Plavix supply, Disp: , Rfl: atorvastatin (LIPITOR) 40 MG tablet, take 1 tablet by mouth once daily (Patient taking differently: take 1/2 tablet (20mg) by mouth once daily), Disp: 30 tablet, Rfl: 11 bisoprolol-hydrochlorothiazide (ZIAC) 10-6.25 MG per tablet, take 1 tablet by mouth on ce daily, Disp: 30 tablet, Rfl: 11 budesonide (PULMICORT) 0.5 MG/2ML nebulizer suspension, Take 0.5 mg by nebulization 2 (two) times daily., Disp: , Rfl: Cholecalciferol 2000 UNITS CAPS, Take 1,000 Units by mouth., Disp: , Rfl: clopidogrel (PLAVIX) 75 MG tablet, Take 1 tablet by mouth daily., Disp: 90 tablet, Rfl : 3 Coenzyme Q-10 100 MG capsule, Take 100 mg by mouth daily., Disp: , Rfl: DIGITEK 125 MCG tablet, take 1 tablet by mouth once daily, Disp: 30 tablet, Rfl: 11 fish oil-omega-3 fatty acids 1000 MG capsule, Take 2 g by mouth daily. , Disp: , Rfl: glipiZIDE (GLUCOTROL) 5 MG tablet, Take 5 mg by mouth daily., Disp: , Rfl: ipratropium-albuterol (DUO-NEB) 0.5-2.5 mg/3mL, Take 3 mLs by nebulization as needed., Disp: , Rfl: losartan (COZAAR) 50 MG tablet, Take 50 mg by mouth daily., Disp: , Rfl: montelukast (SINGULAIR) 10 MG tablet, Take 10 mg by mouth nightly., Disp: , Rfl: Multiple Vitamins-Minerals (MULTIVITAMIN WITH MINERALS) tablet, Take 1 tablet by mouth daily., Disp: , Rfl: nitroGLYCERIN (NITROSTAT) 0.4 MG SL tablet, Place 1 tablet under the tongue every 5 (f mony) minutes as needed for Chest pain., Disp: 90 tablet, Rfl: 12 potassium chloride (K-DUR) 10 MEQ tablet, take 1 tablet by mouth twice a day with meal s, Disp: 60 tablet, Rfl: 11 roflumilast (DALIRESP) 500 MCG tablet, Take 500 mcg by mouth every other day., Disp: , Rfl: torsemide (DEMADEX) 10 MG tablet, take 2 tablets by mouth once daily, Disp: 60 tablet, Rfl: 11 warfarin (COUMADIN) 3 MG tablet, Take 3 mg by mouth daily., Disp: , Rfl: diazePAM (VALIUM) 5 MG tablet, take 1/2 tablet by mouth 30 MINUTES PRIOR TO MRI; IF NE CESSARY MAY TAKE OTHER HALF, Disp: , Rfl: 0 Objective: Physical Exam BP 100/60 (BP Location: Left upper arm, Patient Position: Sitting) | Pulse 60 | Ht 1.702 m (5' 7") | Wt 63 kg (139 lb) | SpO2 97% | BMI 21.77 kg/m GENERAL: Well developed, well nourished, elderly male in mild respiratory distr ess. Appears approximately stated age. HEENT: Normocephalic, atraumatic. He has poor hearing. EYES: Small right scleral hemorrhage. Well-healed iridectomies. PERRL, sclerae ani cteric, no xanthelsasmas MOUTH: Oral mucosae dry, dentition [...] motor deficits. PSYCHIATRIC: Appropriate, affect appears normal EKG: Atrial fibrillation, ventricular rate 69 bpm, nonspecific ST-T abnormalities, no signi ficant change compared to 03/11/18. Assessment and Plan: Nestor was seen today for follow-up. 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 ([facility]) S/P PTCA (percutaneous transluminal coronary angioplasty) Chronic atrial fibrillation ([facility]) Moderate to severe mitral regurgitation PVD (peripheral vascular disease) ([facility]) Mixed hyperlipidemia Chronic obstructive pulmonary disease, unspecified COPD type ([facility]) Type 2 diabetes mellitus without complication, without long-term current use of insulin (HC C) in this encounter Plan of Treatment +--------+---------+ + + + | Date | Type | Specialty | Care Team | Description | +--------+---------+ + + + | 11/26/ | Office | Cardiology | Jerman Geronimo, | | | 2019 | Visit | | [address] | | | | | | [place], | | | | | | [place] [address] | | | | | | [phone] | | | | | | | [...] The right atrium is mildly enlarged. 5. Vcqfjjht-yc-csagdy | | | mitral regurgitation is present, [...] Nestor Miranda Date of : 1935 | [facility] | | Performing Physician: Jerman Geronimo | [...] is mildly enlarged. 5. | | | Kfiiaikt-ob-riyaoj mitral regurgitation is present, with an eccentric, [...] is normal. | | | Mitral Valve: Ejovwhov-xc-hdpxms mitral regurgitation is present, | | | [...] structurally normal. | | | Tricuspid Valve: Amfi-pq-nesocofg tricuspid regurgitation present. | | | Tricuspid [...] MV A Herrera: 0.00 m/s MV Dec [place]: | | | 7.94 m/s2 MV DecT: 113.82 ms MV E Herrera: 0.90 m/s MV E/A | | | Ratio: 147 E/E' Sept: 10.87 E' Lat: 0.11 m/s E' | | | Sept: 0.08 m/s RAP: 5 mmHg RV S': 0.10 m/s RVSP: | | | 42.89 mmHg TR maxP.89 mmHg TR Vmax: 3.07 m/s | | | Nuclear Spectroscopist: Authenticated by: Jerman Geronimo Report Date/Time: | | | 09-04-2018 21:23:14 | | + + + + + | Procedure Note | + + | Ross Newell In - 09/04/2018 9:23 PM PDT Patient Name: Phill Miranda of | | : 5Accession: [id number] Physician: Jerman Prasad | | [place] INDICATIONS | | -Dilated cardiomyopathyCONCLUSIONS 1. Overall left ventricular systolic | | function is mild-moderately impaired with an EF between 40 - 45 %.2. The right ventricle | | is normal in size and function.3. The left atrium is markedly enlarged.4. The right | | atrium is mildly enlarged.5. Yhwjhiea-en-hsfvpa mitral regurgitation is present, with an | [...] valve is normal. Mitral | | Valve: Yxyjnkbj-ph-ouhzco mitral regurgitation is present, with an eccentric, | | posteriorly directed jet, unchanged from the previous exam. Mitral Valve: No evidence of | | MVP Mitral Valve: . Mitral Valve: Mild mitral annular calcification present. Mitral | | Valve: Mild thickening of the anterior mitral valve leaflet.Tricuspid Valve: The | | tricuspid valve appears structurally normal. Tricuspid Valve: Hrzd-gc-usaobwxi tricuspid | | regurgitation present. Tricuspid Valve: [...] (A-L): 65.85 | | ml/m2LAAs A2C: 30.64 [id number] A-L A2C: 127.37 mlLAESV MOD A2C: 121.44 mlLALs A2C: | | 6.26 cmLAAs A4C: 27.16 [id number] A-L A4C: 101.56 mlLAESV MOD A4C: 98.75 mlLALs | | A4C: 6.16 cmRAAs: 23.85 [id number] A-L: 77.28 mlRAESV MOD: 74.58 mlRALs: 6.24 | | cmTAPSE: 2.04 cmAV Env.Ti: 261.91 msAV maxP.44 mmHgAV meanP.43 mmHgAV | | Vmax: 1.44 m/Judson Vmean: 0.98 m/Judson VTI: 26.02 cmAVA Vmax: 2.49 cm2AVA (VTI): | | 2.52 [id number] Vmax: 0.00 cm2/m2AVAI (VTI): 0.00 cm2/m2LVOT Env.Ti: 265.67 msLVOT | | maxP.16 mmHgLVOT meanP.71 mmHgLVSI Dopp: 37.77 ml/m2LVSV Dopp: 65.72 | | mlLVOT Vmax: 0.88 m/sLVOT Vmean: 0.61 m/sLVOT VTI: 16.22 cmMR maxP.23 | | mmHgMR meanP.34 mmHgMR Vmax: 5.87 m/sMR Vmean: 4.25 m/sMR VTI: 180.45 cmMV | | A Herrera: 0.00 m/sMV Dec [place]: 7.94 m/s2MV DecT: 113.82 msMV E Herrera: [...] enlarged.4. The right atrium is mildly enlarged.5. Kjujwfrv-ov-pqcjsl | | mitral regurgitation is present, with [...] A Herrera: 0.00 m/s | |MV Dec [place]: 7.94 m/s2 | |MV DecT: 113.82 ms | |MV E Herrera: 0.90 m/s | |MV E/A Ratio: 147 | |E/E' Sept: 10.87 | |E' Lat: 0.11 m/s | |E' Sept: 0.08 m/s | |RAP: 5 mmHg | |RV S': 0.10 m/s | |RVSP: 42.89 mmHg | |TR maxP.89 mmHg | |TR Vmax: 3.07 m/s | | | |Nuclear Spectroscopist: | |Authenticated by: Jerman Geronimo | |Report Date/Time: 09-04-2018 21:23:14 | | | |IMPRESSION: | |1. Overall left ventricular systolic function is mild-moderately impaired with an EF betwee n 40 - 45 %. | |2. The right ventricle is normal in size and function. | |3. The left atrium is markedly enlarged. | |4. The right atrium is mildly enlarged. | |5. Sbxvmkhr-pf-ynplgb mitral regurgitation is present, with an eccentric, [...] | + + + + + | [facility] | [address] | [place] [address] | | + + + + + [...] + + + + | Calculated R [place] | 82 | degrees | [facility] | + + + + + | Calculated T [place] | 2 | degrees | [facility] | + + + + + | Diagnosis | Atrial | | [facility] | | | fibrillationNonspecific | | [...] | | | | | by ICA [place] Read Only, | | | | | ICA Nadine ([id number]), | | | | | purchasing expeditor Johnson Kimble | | | | | ([phone] on 08/27/2018 | | | | | 4:45:23 PM | | | + + + + + + + + + + | Performing | Address | City/State/Zipcode | Phone Number | | Organization | | | | + + + + + | [facility] | [address] 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
--- OUTSIDE RECORDS SUMMARY | ~2018-09-22 | XMS | Encounter Summary ---
Demographics + + + | Address | [address] | | | [place] [address] | + + + | Home Phone [...] + | Author | [facility] | + + + | Organization | [facility] | + + + | Address | Unknown | + + + | Phone | Unavailable | + + + Support + + + + + | Name | Relationship | Address | Phone | + + + + + | Nestor Miranda | ECON | [address] | | | | | [place] | | | | | [address] | | + + + + + Care Team Providers + +------+ + | Care Tank Car Repairer Name | Role | Phone | + [...] | | [address] | [place] [address] | heart failure (HCC) | | | | [place], [place] [address] | [phone] | (Primary Dx); | | | | [phone] | | Chronic combined | | | [...] of | | | | | | citizen [place] artery of | | | | | | citizen [place] heart with | | | | | | stable angina | | | | | | pectoris ([facility]); S/P | | | | | | PTCA (percutaneous | | | | | | transluminal | | | | | | coronary | | | | | | angioplasty); | | | | | | Chronic atrial | | | | | | fibrillation ([facility]); | | | | | | Moderate to severe | | | | | | mitral | | | | | | regurgitation; PVD | | | | | | (peripheral vascular | | | | | | disease) ([facility]) | +--------+---------+ + + + [...] now 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 He has [...] femoral bi-popliteal bypass graft, but the right [employer]LEGE [employer]IV[employer] MEMBER is occlu ded, right UBALDO, TBI are mildly diminished, with normal values on the left side -- Right Common Femoral - below the knee Popliteal Bypass (03/12/18) -- Angio/COLLEGE [employer]IVERSITY FAC[employer] MEMBER/Stent Legs (02/27/18): Bilateral 7 x 27 mm [...] rate. There were rare PVCs -- Echo (09/27/15-[facility]): moderate global hypokinesis, EF35-40%, marked [...] noted on his abdominal CT scan at [place]. GENITOURINARY: Mild chronic kidney disease, with evidence [...] - POPLITEAL; Surgeon: Minh Isbell MD; Location: [facility] IN OR; Service: Vascular; Laterality: Right; CATARACT EXTRACTION Bilateral CORONARY ANGIOPLASTY 07/28/2016 D1 - 2.25x20 Promus Premier CLIFF; Ramus - 2.75x28 Promus Premier CLIFF CORONARY ANGIOPLASTY WITH STENT PLACEMENT EXAMINATION UNDER ANESTHESIA N/A 03/12/2018 Procedure: EXAM UNDER ANESTHESIA; Surgeon: Miki Barry DO; Location: [facility] MAIN OR; Service: Urology; Laterality: N/A; [...] Chronic combined systolic and diastolic heart failure ([facility]) Dilated cardiomyopathy ([facility]) 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 5. Zdenflur-rz-dslhjp | | | mitral regurgitation is present, [...] Nestor Miranda Date of : 1935 | [facility] | | Performing Physician: Jerman [...] is mildly enlarged. 5. | | | Mitvfckl-bl-edvnkc mitral regurgitation is present, with an eccentric, [...] is normal. | | | Mitral Valve: Mbjgdurf-dg-czzhrt mitral regurgitation is present, | | | [...] structurally normal. | | | Tricuspid Valve: Twaa-wk-maclamnm tricuspid regurgitation present. | | | Tricuspid [...] MV A Herrera: 0.00 m/s MV Dec Piute: | | | 7.94 m/s2 MV DecT: 113.82 ms MV E Herrera: 0.90 m/s MV E/A | | | Ratio: 147 E/E' Sept: 10.87 E' Lat: 0.11 m/s E' | | | Sept: 0.08 m/s RAP: 5 mmHg RV S': 0.10 m/s RVSP: | | | 42.89 mmHg TR maxP.89 mmHg TR Vmax: 3.07 m/s | | | Fire Range Technician: Authenticated by: Jerman Geronimo Report Date/Time: | | | 09-04-2018 21:23:14 | | + + + + + | Procedure Note | + + | Ross Newell In - 09/04/2018 9:23 PM PDT Patient Name: Phill Miranda of | | : 5Accession: [id number] Physician: Jerman Prasad | | Lehr INDICATIONS | | -Dilated cardiomyopathyCONCLUSIONS 1. Overall left ventricular systolic | | function is mild-moderately impaired with an EF between 40 - 45 %.2. The right ventricle | | is normal in size and function.3. The left atrium is markedly enlarged.4. The right | | atrium is mildly enlarged.5. Imgasiug-ih-cymmhz mitral regurgitation is present, with an | [...] valve is normal. Mitral | | Valve: Ftaycksd-cb-gddpnd mitral regurgitation is present, with an eccentric, | | posteriorly directed jet, unchanged from the previous exam. Mitral Valve: No evidence of | | MVP Mitral Valve: . Mitral Valve: Mild mitral annular calcification present. Mitral | | Valve: Mild thickening of the anterior mitral valve leaflet.Tricuspid Valve: The | | tricuspid valve appears structurally normal. Tricuspid Valve: Bktj-ba-phivfkld tricuspid | | regurgitation present. Tricuspid Valve: [...] (A-L): 65.85 | | ml/m2LAAs A2C: 30.64 [id number] A-L A2C: 127.37 mlLAESV MOD A2C: 121.44 mlLALs A2C: | | 6.26 cmLAAs A4C: 27.16 ga8NIDYM A-L A4C: 101.56 mlLAESV MOD A4C: 98.75 mlLALs | | A4C: 6.16 cmRAAs: 23.85 lv2IFKCV A-L: 77.28 mlRAESV MOD: 74.58 mlRALs: 6.24 | | cmTAPSE: 2.04 cmAV Env.Ti: 261.91 msAV maxP.44 mmHgAV meanP.43 mmHgAV | | Vmax: 1.44 m/Judson Vmean: 0.98 m/Judson VTI: 26.02 cmAVA Vmax: 2.49 cm2AVA (VTI): | | 2.52 rb1KZLB Vmax: 0.00 cm2/m2AVAI (VTI): 0.00 cm2/m2LVOT Env.Ti: 265.67 msLVOT | | maxP.16 mmHgLVOT meanP.71 mmHgLVSI Dopp: 37.77 ml/m2LVSV Dopp: 65.72 | | mlLVOT Vmax: 0.88 m/sLVOT Vmean: 0.61 m/sLVOT VTI: 16.22 cmMR maxP.23 | | mmHgMR meanP.34 mmHgMR Vmax: 5.87 m/sMR Vmean: 4.25 m/sMR VTI: 180.45 cmMV | | A Herrera: 0.00 m/sMV Dec Piute: 7.94 m/s2MV DecT: 113.82 msMV E Herrera: [...] enlarged.4. The right atrium is mildly enlarged.5. Zdtlqskx-fz-ahgxxc | | mitral regurgitation is present, with [...] A Herrera: 0.00 m/s | |MV Dec Piute: 7.94 m/s2 | |MV DecT: 113.82 ms | |MV E Herrera: 0.90 m/s | |MV E/A Ratio: 147 | |E/E' Sept: 10.87 | |E' Lat: 0.11 m/s | |E' Sept: 0.08 m/s | |RAP: 5 mmHg | |RV S': 0.10 m/s | |RVSP: 42.89 mmHg | |TR maxP.89 mmHg | |TR Vmax: 3.07 m/s | | | |Fire Range Technician: | |Authenticated by: Jerman Geronimo | |Report Date/Time: 09-04-2018 21:23:14 | | | |IMPRESSION: | |1. Overall left ventricular systolic function is mild-moderately impaired with an EF betwee n 40 - 45 %. | |2. The right ventricle is normal in size and function. | |3. The left atrium is markedly enlarged. | |4. The right atrium is mildly enlarged. | |5. Lxibwwxs-kz-aqelgd mitral regurgitation is present, with an eccentric, [...] [facility] | [address] | [place] [address] | | + + + + + [...] + + + + | Calculated R [place] | 82 | degrees | [facility] | + + + + + | Calculated T [place] | 2 | degrees | [facility] [...] | | | | | by [employer] [place] Read Only, | | | | | ICA Nadine ([id number]), | | | | | commercial production editor Johnson Kimble | | | | | ([id number]) on 08/27/2018 | | | | | 4:45:23 PM | | | + + + + + + + + + + | Performing | Address | City/State/Zipcode | Phone Number | | Organization | | | | + + + + + | [facility] | [address] | [place] [address] | | + + + + + [...] + + | Coronary artery disease of citizen pot[place]atomi artery of citizen pot[place]i heart with stable angina pectoris | | [...]
--- OUTSIDE RECORDS SUMMARY | ~2018-09-22 | XMS | Encounter Summary ---
Demographics + + + | Address | [address] | | | [place] [address] | + + + | Home Phone | | + + + | Preferred Language | Unknown | + + + | Marital Status | | + + + | Episcopalian Affiliation | 1013 | + + + | Race | Unknown | + + + | Ethnic Group | Unknown | + + + Author + + + | Author | [facility] | + + + | Organization | [facility] | + + + | Address | Unknown | + + + | Phone | Unavailable | + + + Support + + + + + | Name | Relationship | Address | Phone | + + + + + | Nestor Miranda | ECON | [address] | | | | | [place] | | | | | [address] | | + + + + + Care Team Providers + +------+ + | Care Leasing Specialist Name | Role | Phone | [...] [place], | | | | | [place], [place] | [place] [address] | | | | | [address] | [phone] | | | | | [phone] | | | +--------+--------+ + + + [...] | | | | | | [place] [address] | | | | | | [phone] | | | | | | | | +--------+---------+ + + + as of this encounter Visit Diagnoses Not on filein this encounter"
--- OUTSIDE RECORDS SUMMARY | ~2018-09-22 | XMS | Clinical Summary ---
Demographics + + + | Address | [address] | | | [place] [address] | + + + | Home Phone | | + + + | Preferred Language | Unknown | + + + | Marital Status | | + + + | Latter-Day Affiliation | 1013 | + + + | Race | Unknown | + + + | Ethnic Group | Unknown | + + + Author + + + | Author | [facility] | | | and [place] | + + + | Organization | [facility] | | | and [...] [place] | | | | | [address] | | + + + + + Care Team Providers + +------+ + | Care Continuing Education Dean Name | Role | Phone | + [...] | | + + + +---------+------+------+-------+ | [place]-3 Fatty | Take 1,000 mg by | [...] + + + + | Overview: COLUMBA [id number] Decision | + + +---------+---+ | C O P D | | +---------+---+ Family History + + + + + | Medical History | Relation | Name | Comments | + + + + + | Heart attack | Brother | | [place] | + + + + + | COPD | Father | Mike | Heart & lung problems | | | | Anastacio Miranda | | + + + + + | Heart attack | Father | Mike | [place] | | | | Anastacio Miranda | [...] + + | Brother | | | [place] | | | | (Age | | | | | 58) | | + + + + + | Father | Mike | | [place] | | | Anastacio Miranda | (Age [...] +--------+ +---------+--------+ | MEDICARE | MEDICA | [id number] | | [phone] | | Medica | | | RE | | 000-Pr | 5 | | re | | | PART A | | esent | | | | | | AND B | | | | | | + +--------+ +--------+ +---------+--------+ | INDIVIDUAL ASSURANCE | INDIVI | [id number] | | | | Indemn | | [...] | | al/Fam | | 1935 | [phone] | [place] | | | ron | | | 6 (Home) | [address] | + +--------+ +--------+ + + Advance Directives Patient has advance care planning documents on file. For more information, please contact:[facility] [place] [address]
[~2018-09-22 10:46] MED LIST changes: +AZITHROMYCIN500 MG PO; +CLOPIDOGREL75 MG PO; +COQ1050 MG PO; +FISH OIL 1,0001 EAC2 NG; +GLIPIZIDE5 MG PO; +PREDNISONE10 MG PO; +TORSEMIDE10 MG PO
[2018-09-22] MEDS ORDERED: BROVANA15 MCG/2 M INH (11:09)
[2018-09-22] MEDS ORDERED: NITROSTAT0.3 MG SL (11:10)
[2018-09-22] MEDS ORDERED: PREDNISONE20 MG PO (14:10)
--- NOTE | 2018-09-24 13:52 | EKG ---
[facility] [address] [facility] [place] [address] Signed Atrial fibrillation Low voltage QRS Abnormal ECG When compared with ECG of 25-SEP-2017 05:09, ST no longer depressed in Anterior leads Nonspecific T wave abnormality has replaced inverted T waves in Inferior leads T wave inversion no longer evident in Lateral leads Confirmed by ALONZO ARREDONDO MD ([id number]) on 09/24/2018 1:52:47 PM Electronically Signed By: ALONZO ARREDONDO MD 09/24/18 1352 PATIENT NAME: ONEIDA YANEZ Electrocardiogram DATE OF : 35 PHYSICIAN: ALONZO ARREDONDO MD REPORT #: [id number] REPORT IS CONFIDENTIAL AND NOT TO BE RELEASED WITHOUT AUTHORIZATION
== END 2018-09-22 14:36 | disposition home or self-care (01) ==
LOC: ED 10:46
DX: J44.1 Chronic obstructive pulmonary disease with (acute) exacerbation (principal); E11.9 Type 2 diabetes mellitus without complications; I10 Essential (primary) hypertension; E78.5 Hyperlipidemia, unspecified; I48.91 Unspecified atrial fibrillation; Z87.891 Personal history of nicotine dependence; Z79.899 Other long term (current) drug therapy; Z79.01 Long term (current) use of anticoagulants
CPT/HCPCS: 71045; 80053; 80162; 83880; 84484; 85025; 85610; 93005; 93010; 94640; 96374; 99285-25; J2930

== ENCOUNTER 2019-03-11 16:22 | Emergency (ER) | payer MEDICARE, OTHER ==
[~2019-03-11] VITALS: Ht 170.2 cm; Wt 64.1 kg
[~2019-03-11 16:22] MED LIST changes: +NITROSTAT0.3 MG SL
[2019-03-11] MEDS ORDERED: PREDNISONE20 MG PO (18:18)
--- NOTE | 2019-03-11 22:36 | EKG ---
[facility] [address] [facility] [place] [address] Signed Atrial fibrillation with a competing junctional pacemaker Rightward axis T wave abnormality, consider inferior ischemia Abnormal ECG When compared with ECG of 22-SEP-2018 11:00, No significant change was found Confirmed by ALONZO ARREDONDO MD ([id number]) on 03/11/2019 10:36:24 PM Electronically Signed By: ALONZO ARREDONDO MD 03/11/19 2236 PATIENT NAME: ONEIDA YANEZ Electrocardiogram DATE OF : 35 PHYSICIAN: ALONZO ARREDONDO MD REPORT #: [id number] REPORT IS CONFIDENTIAL AND NOT TO BE RELEASED WITHOUT AUTHORIZATION
== END 2019-03-11 18:40 | disposition home or self-care (01) ==
LOC: ED 16:22
DX: J44.1 Chronic obstructive pulmonary disease with (acute) exacerbation (principal); I10 Essential (primary) hypertension; E11.9 Type 2 diabetes mellitus without complications; I48.91 Unspecified atrial fibrillation; E78.5 Hyperlipidemia, unspecified; Z87.01 Personal history of pneumonia (recurrent); Z88.1 Allergy status to other antibiotic agents; Z88.6 Allergy status to analgesic agent; Z88.8 Allergy status to other drugs, medicaments and biological substances; Z79.02 Long term (current) use of antithrombotics/antiplatelets; Z79.84 Long term (current) use of oral hypoglycemic drugs; Z79.899 Other long term (current) drug therapy
CPT/HCPCS: 84484; 85610; 85730; 93005; 93010; 94640; 96374; 99283-25; J2930

== ENCOUNTER 2020-08-31 12:15 | Inpatient (IN) | payer MEDICARE, OTHER ==
[~2020-08-31] VITALS: Ht 170.2 cm; Wt 68.9 kg
[~2020-08-31 12:15] MED LIST changes: +ATORVASTATIN CA40 MG PO
--- OUTSIDE RECORDS SUMMARY | 2020-08-31 12:18 | XMS ---
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 Phan has no Care Guidelines for this patient. Jay VISIT COUNT (12 MO.) 1 ELIZABETH Saenz TOTAL 1 NOTE: Visits indicate total known visits. ED/C VISIT TRACKING (12 MO.) 08/31/2020 12:17 [facility] [place] TYPE: Emergency COMPLAINT: - DIFFICULTY BREATHING INPATIENT VISIT TRACKING (12 MO.) No inpatient visits to display in this time frame [email or web address]
[2020-08-31] MEDS ORDERED: GABAPENTIN300 MG PO (12:30)
[2020-08-31] MEDS ORDERED: PREDNISONE5 MG PO (12:30)
--- NOTE | 2020-08-31 20:09 | EKG ---
[facility] [address] [facility] [place] [address] Signed Atrial fibrillation Rightward axis Nonspecific ST and T wave abnormality Abnormal ECG When compared with ECG of 11-MAR-2019 16:32, T wave inversion no longer evident in Inferior leads Confirmed by FAY MCINTYRE DO ([id number]) on 08/31/2020 8:09:25 PM Electronically Signed By: FAY MCINTYRE DO 08/31/202008 PATIENT NAME: ONEIDA YANEZ Electrocardiogram DATE OF : 35 PHYSICIAN: FAY MCINTYRE DO REPORT #: [id number] REPORT IS CONFIDENTIAL AND NOT TO BE RELEASED WITHOUT AUTHORIZATION
--- NOTE | 2020-08-31 20:10 | NUR ---
PT ADMITTED TO ROOM 117 FROM ED, PRESENT. ABLE TO SELF TRANSFER, AMBULATE WITH YOUNG TO BATHROOM. DID GET PT A FWW FOR THE RETURN, SOB NOTED. TELE PER ORDER. PT ORDERED FOOD, WILL RECEIVE ONCE BS IS COMPLETED.
--- NOTE | 2020-08-31 21:09 | NUR ---
EATING HIS DINNER. REPORTS THAT HE HAS DENTURES, BUT SLEEPS IN THEM. DR MCINTYRE STOPPED IN AND CHECK MED LIST, AWARE OF BP, HR. PT VOIDED 200. LIVES AT HOME WITH HIS . PLANS TO RETURN. BED ALARM PLACED. CALL LIGHT WITHIN REACH.
--- NOTE | 2020-08-31 21:50 | NUR ---
SCHEDULED MEDS ADMINISTERED. IVF INFUSING PER ORDER. PT UP TO BR WITH SBA TO VOID. GAIT WEAK AND UNSTEADY AT TIMES. BACK TO BED, AMADA WELL. INCREASED RESPIRATIONS WITH ACTIVITY NOTED. SpO2 89% ON RA AFTER AMBULATION. PT C/O PAIN/TIGHTNESS ACROSS IS UPPER ABD AREA AFTER RETURNING TO BED. HR IRREGULAR 110'S-120'S. DENIES CP OR SOB. RT IN TO DO BREATHING TX. PT ORIENTED TO ROOM AND NURSE CALL LIGHT. VERBALIZES UNDERSTANDING. BED ALARM FOR SAFETY. WARM BLANKETS PROVIDED.
--- NOTE | 2020-08-31 22:30 | NUR ---
ADMISSION ASSESSMENT COMPLETE. PT REPORTS RAPHAEL 3/10 PAIN. PRN TYLENOL ADMINISTERED. UPPER AND LOWER EXTREMITIES NOTED TO BE COOL TO TOUCH. BILAT LE JUAN IN COLOR. PT STATES NORMAL DUE TO BYPASS AND CABG HX. GLOVES FROM PT BELONGING BAG ON BILAT HANDS, PT STATES HE WEARS THEM AT HOME TO KEEP HANDS WARM. TELE #[address] HR 100'S-120'S. AFIB. PT DENIES CP OR SOB. DOES REPORT ABD PAIN THAT HE FELT AFTER AMBULATION RELIEVED WITH REST. HE ALSO REPORTS ABD DISTENDED. BT ACTIVE. LAST BM 08/31. PT DENIES QUESTIONS OR CONCERNS. CALL LIGHT IN REACH. BED ALARM FOR SAFETY.
--- NOTE | 2020-09-01 01:37 | NUR ---
PT UP TO BR WITH SBA TO VOID 150 ML CLEAR YELLOW URINE AND HAVE SMALL BM. BACK TO BED, AMADA WELL. DENIES CP OR SOB. NO ABD PAIN. INCREASED RR WITH AMBULATION. SpO2 94% ON RA.
--- NOTE | 2020-09-01 02:50 | NUR ---
BED ALARMING. PATIENT JUST REPOSITIONED. TISSUE PROVIDED. BED ALARM ON FOR SAFETY
--- NOTE | 2020-09-01 05:08 | NUR ---
CALL LIGHT ANSWERED. PT UP TO BR WITH SBA AND FWW TO VOID AND HAVE SMALL BM. GAIT STEADY. BACK TO BED, AMADA WELL. C/O "FEELING OUT OF BREATH". HEAD OF BED ELEVATED. SpO2 94% ON RA. HR 100'S. RR 22. LUNGS DIM IN THE BASES. PT RECOVERS QUICKLY. DENIES CP OR ABD PAIN. VS AND I&O COMPLETE. RT IN ROOM TO DO BREATHING TX. BED ALARM FOR SAFETY. CALL LIGHT IN REACH.
--- NOTE | 2020-09-01 06:36 | NUR ---
THIS RADIO DIVISION OFFICER CALLED DOWN PATIENTS BREAKFAST ORDER. PATINET LAYING IN BED. DENIES ANY FUTHER NEEDS AT THIS TIME.
--- NOTE | 2020-09-01 06:53 | NUR ---
HR ABOVE 130 FOR 2 MIN, UPWARDS OF 150'S PER TEL MONITOR. GAVE 0900 DOSE LOPRESSOR EARLY.
--- NOTE | 2020-09-01 07:46 | NUR ---
Patient sitting up in bed visiting with . Patient denies sob at rest. No pain reported at this time. Call light within reach.
--- NOTE | 2020-09-01 09:47 | NUR ---
PATIENT RESTING IN BED. AT BEDSIDE. FRESH WATER OFFERED. VITALS AND I&OS ARE DONE AND DOCUMENTED. CALL LIGHT IS IN REACH. NO FURTHER NEEDS AT THIS TIME.
--- NOTE | 2020-09-01 10:55 | NUR ---
Heart Failure RN note: Reviewed heart failure daily care with patient and spouse. Does not have difficulty remembering or obtaining medications. Does use weekly pill reminder box. Encouraged patient to call PCP for any early symptoms of heart failure. Does have scales at home, currently not weighing QD. Requested he initiate QAM weights into routine. Spouse cooks. They rarely dine out. They do not use added salt to food. Awareness of sodium in processed foods encouraged. He does follow up with cardiology. No transportation difficulties identified. Does not qualify for OP Cardiac Rehab at this time. Given HF RN contact card and welcomed to call with any questions.
--- NOTE | 2020-09-01 12:16 | NUR ---
Dr. Jackson aware of 389 blood sugar level. No new orders obtained.
--- NOTE | 2020-09-01 12:35 | NUR ---
Patient sitting up eating lunch in bed. No notable distress at this time. Patient denies sob and pain at this time. Call light within reach.
--- NOTE | 2020-09-01 13:00 | NUR ---
Spoke with pt's Harriett, as pt is sleeping. She states they have been for 60 years and live in a 1 story, 1 step home. They have DME equipment, but he does not use. She denies financial issues. Both drive, but Harriett does not like to drive unless she has to. Pt does have and uses a nebulizer, Harriett states he has plenty of meds for his neb. Plan for dc to home with on discharge. She denies need s. Harriett states Nestor does check his wt frequently, he did not have an increase in wt with this exacerbation.
--- NOTE | 2020-09-01 13:45 | NUR ---
PATIENT SITTING ON EDGE OF BED. AT BEDSIDE. FRESH ICE WATER GIVEN. VITALS AND I&OS ARE DONE AND DOCUMENTED. CALL LIGHT IS IN REACH. NO FURHTER NEEDS AT THIS TIME.
--- NOTE | 2020-09-01 15:46 | NUR ---
Patient in shower at this time. at bedside.
--- NOTE | 2020-09-01 16:38 | NUR ---
Patient out of shower, he reports feeling much better. Patient continues to denies sob at rest. IV patent, fluids infusing per order. Patient has no needs. Personal supplies and call light within reach.
--- NOTE | 2020-09-01 18:20 | NUR ---
PATIENT SITTING UP IN BED WATCHING TV. AT BEDSIDE. FRESH WATER GIVEN. VITALS AND I&OS ARE DONE AND DOCUMENTED. CALL LIGHT IS IN REACH. NO FURHTER NEEDS AT THIS TIME.
--- NOTE | 2020-09-01 19:23 | NUR ---
PT ASSESSED PER COPD GOLD GUILDLINE. BASED ON HISTERY OF COPD REQUIREING ADMISSIONS AND LEVEL OF SHORTNESS OF BREATH IT WAS RECOMENDED TO CLINICAL PHARMACY TO ADD AN ANTICHOLINERGIC TO PATIENT HOME REGIMEN. PATIENT DOES NOT CHANGE NEB CUPS AT HOME. HE WAS COACHED TO CHANGE HIS HOME NEB CUPS AT LEAST EVERY 30 DAYS FOR IMPROVED FUNCTION.
--- NOTE | 2020-09-01 20:05 | NUR ---
PATIENT SITTING AT BEDSIDE USING SOME MOUTH WASH. PATIENT HAS NO CURRENT NEEDS AT THIS TIME. CALL LIGHT IS IN REACH.
--- NOTE | 2020-09-01 20:47 | NUR ---
PATIENT TOOK EVENING MEDS WITHOUT DIFFICULTY. PATIENT UP TO THE BATHROOM WITH FWW AND 1PSBA AND BACK TO BED. PATIENT FORGETS TO CALL SO BED ALARM IS ON. PATIENT'S LUNGS ARE CLEAR, BUT DIM IN THE BASES. IV FLUSHES WELL. PATIENT DENIES PAIN, BUT HAS EXERTIONAL DYSPNEA WHEN AMBULATING TO THE BATHROOM. VS ARE STABLE AND PATIENT IS VOIDING WELL. PATIENT HAD NO OTHER NEEDS AT THIS TIME. CALL LIGHT IS IN REACH.
--- NOTE | 2020-09-01 22:10 | NUR ---
PATIENT BED ALARM WENT OFF. PATIENT NEEDS TO GO THE THE BATHROOM. 1PSBA WITH FWW TO THE BATHROOM AND BACK TO BED. PATIENT IS HAVING SOME DYSPNEA AFTER WALKING AND RT WAS CALL TO GIVE A NEB TREATMENT. CALL LIGHT IS IN REACH.
--- NOTE | 2020-09-02 00:05 | NUR ---
PATIENT RESTING QUIETLY ON HIS BACK, RESPIRATIONS REGULAR AND EVEN, EYES CLOSED, CALL LIGHT IN REACH.
--- NOTE | 2020-09-02 01:22 | NUR ---
PATIENT'S BED ALARM WENT OFF. PATIENT DID NOT NEED ANYTHING HE JUST SAT UP AND BED AND WAS TURNING OVER. NO NEEDS AT THIS TIME. BED ALARM RESET. CALL LIGHT IN REACH.
--- NOTE | 2020-09-02 03:23 | NUR ---
PATIENT'S BED ALARM WENT OFF HE FORGOT TO USE HIS CALL LIGHT. 1PSBA WITH FWW TO THE RESTROOM AND BACK TO BED. PATIENT HAVING A LITTLE DYSPNEA WITH EXERTION WALKING TO THE BATHROOM AND PATIENT REQUESTED A BREATHING TREATMENT. RT WAS CALLED AND RT IS ON THEIR WAY. PATIENT'S BEDALARM IS ON AND CALL LIGHT IN REACH.
--- NOTE | 2020-09-02 04:05 | NUR ---
PATIENT'S IV ALARMING AND A NEW BAG OF LR WAS NEEDED, WHICH WAS HUNG. PATIENT HAD NO OTHER NEEDS AT THIS TIME. BED ALARM ON AND CALL LIGHT IN REACH.
--- NOTE | 2020-09-02 05:30 | NUR ---
SAMMI HAS RESTED WELL INBETWEEN TRIPS TO THE RESTROOM. PATIENT HAS NEEDED THE BED ALARM ON ALL NIGHT HE IS UNSTEADY AND NEEDS 1PSBA TO THE RESTROOM AND HE ALSO USES HIS WALKER. HR HAS CONTINUED TO RISE THIS AM UNTIL HE WAS HITTING HR= 14 OR 150 AT TIMES AND 5MG IV LOPRESSOR WAS GIVE AND BROUGHT HIS HR DOWN. IV INFUSING AND FLUSHES WELL. LUNGS ARE WHEEZY THIS AM AND PATIENT GETTING NEBS. PATIENT HAS DYSPNEA WITH EXERTION. CURRENTLY RESTING QUIETLY IN BED, BED ALARM ON, CALL LIGHT IN REACH.
--- NOTE | 2020-09-02 10:35 | NUR ---
PATIENTS BLOOD SUGAR REEVALUATED. PATIENTS BS IS NOW 109. PATIENT DENIES ANY NEEDS AT THIS TIME. CALL LIGHT IN REACH. RESULTS REPORTED TO PRIMARY RN.
--- NOTE | 2020-09-02 11:05 | NUR ---
Patient HR continues to sustain 130's, ranging from 110's-140's. Patient denies SOB or dizziness with elevated HR. 5mg of IV lopressor given. Will continue to monitor patient.
--- NOTE | 2020-09-02 11:15 | NUR ---
No change in plan for discharge.
--- NOTE | 2020-09-02 12:00 | NUR ---
Patient sleeping in bed, respirations even and unlabored. sitting in chair at bedside. Call light within reach.
--- NOTE | 2020-09-02 13:13 | NUR ---
Orthostatic Hypotension Test Laying: BP - 93/67 (73), HR 127-137 Standing 1 minute: BP - 97/64 (72), HR 121-130 Standing 3 minutes: BP - 106/67 (76), HR 145
--- NOTE | 2020-09-02 14:23 | NUR ---
Dr. Smith in room to assess patient and discuss POC
[2020-09-02] MEDS ORDERED: AZITHROMYCIN250 MG PO (14:53)
--- NOTE | 2020-09-02 15:18 | NUR ---
Patient laying in bed with at bedside. 125mcg of IV digoxin given. HR ranging from 125-140. Patient denies SOB or dizziness. Will continue to monitor.
--- NOTE | 2020-09-02 16:30 | NUR ---
Patient sitting in chair with in room. Discussed patient HR ranging from 100's-130/140's, although the HR appears to be trending down. Answered all questions to best of ability. Warm blankets provided, no further needs. Call light within reach.
--- NOTE | 2020-09-02 17:16 | NUR ---
MED REC COMPLETE
--- NOTE | 2020-09-02 17:30 | NUR ---
Dinner delivered, patient sitting up at edge of bed. PM medications given. Patient denies further needs, call light within reach.
--- NOTE | 2020-09-02 19:25 | NUR ---
SHIFT REPORT RECEIVED FROM ROSHANMOLISA KAUFMAN AT BEDSIDE. pt AWAKE AND RESTING IN BED, TELE#[address], AFIB. NO DISTRESS NOTED, CALL LIGHT IN REACH.
--- NOTE | 2020-09-02 21:30 | NUR ---
PATIENTS BLOOD SUGAR REEVALUATED. PATIENTS BS IS NOW 109. PATIENT DENIES ANY NEEDS AT THIS TIME. CALL LIGHT IN REACH. RESULTS REPORTED TO PRIMARY RN.
--- NOTE | 2020-09-02 22:00 | NUR ---
BS RESULT OF 53, RECHECKED WITH RESULT OF 56. pt GIVEN ORANGE JUICE AND ONEYDA CRACKERS PER PROTOCOL. pt ASYMPTOMATIC, DENIES DIZZINESS, HUNGER, SWEATS. WILL MONITOR. CALL LIGHT IN REACH. TELE#[address], REMAINS AFIB, pt DENIES CHEST PAIN. NO FURTHER NEEDS AT THIS TIME. ASSESSMENT COMPLETE.
--- NOTE | 2020-09-02 23:35 | NUR ---
SCHEDULED DIGOXIN GIVEN, SEE EMAR. DOSE VERIFIED WITH SECOND RN NEERAJ. IV SITE WNL, FLUSHES WELL. APICAL HR 90',S TELE#[address], AFIB. pt DUE TO VOID, RECENTLY ATTEMPTED. UNSUCCESSFUL. pt DID REPORT LUNG TIGHTNESS AFTER AMBULATING AND FELT SOB. REPORTS TIGHTNESS RESOLVED AFTER RESTING IN BED. NO DISTRESS NOTED WILL CONTINUE TO MONITOR.
--- NOTE | 2020-09-03 01:33 | NUR ---
PT UP TO VOID AT [place] [facility] [place] VOIDED 225 ML AT THIS TIME, PT STATES DIZZYNESS IS BETTER, NOW BACK IN BED AT THIS TIME
--- NOTE | 2020-09-03 02:30 | NUR ---
SPOKE TO DR GALLEGO REGARDING UO THUS FAR THIS SHIFT AND LAST UO FOR DAYSHIFT. CLARIFIED ORDERS REGARDING FLUIDS pt IS SALINE LOCKED. TELEPHONE ORDER READ BACK THAT pt IS TO BE SALINE LOCKED. PER MD NO NEED TO NOTIFY MD OF LOW URINE OUTPUT FOR REMAINING SHIFT. IV FLUIDS DC'D IN EMAR.
--- NOTE | 2020-09-03 03:50 | NUR ---
IN ROOM TO RECHECK BLOOD SUGAR, RESULT OF 44, pT DROWSY BUT AWOKE EASILY. A/O TO SELF, DATE, TIME. pt CLAIMS HE IS AT "[facility]". pt REORIENTED TO PLACE. ACCUCHECK RECHECKED, RESULT OF 48. DISCUSSED WITH ASSEMBLER DECK AND HULL BRANDON, JUICE AND PROTEIN PACK PROVIDED PER PROTOCOL. pt INSTRUCTED TO CALL STAFF WHEN SNACK IS COMPLETE, pt VERBALIZES UNDERSTANDING. REMAINING ASSESSMENT UNCHANGED. CALL LIGHT IN REACH AND BED ALRM ON FOR SAFETY.
--- NOTE | 2020-09-03 04:23 | NUR ---
pt FINISHING UP SNACK, WILL WAIT THE APPROX 15 MINUTES THEN RECHECK BLOOD SUGAR.
--- NOTE | 2020-09-03 04:40 | NUR ---
BLOOD SUGAR RECHECKED, RESULT OF 115. pt REPORTS SOME MILD EPIGASTRIC PAIN, STATES, "I THINK I ATE TOO MUCH". pt DENIES NEED FOR NAUSEA MEDS, BOOSTED IN BED WITH HELP FROM JESS JAIMES. pt ALSO REPORTS SOME SOB, RESPIRATIONS SOMEWHAT LABORED, RR 20, O2 SAT 96% ON RA. HOB ELEVATED AND pt INSTRUCTED TO DEEP BREATH, BREATHING DEMONSTRATED BY pt. pt REPORTS SOB IMPROVING, DENIES ADDITIONAL NEEDS,CALL LIGHT IN REACH.
--- NOTE | 2020-09-03 06:26 | NUR ---
pt UP TO THE BSC TO VOID AND IS BACK IN BED, SOME SOB NOTED. pt RECOVED WELL ON HIS OWN, NO NEED FOR O2 THERAPY. BED ALARM ON AND CALL LIGHT IN REACH. VS AND I&O'S COMPLETE.
--- NOTE | 2020-09-03 07:33 | NUR ---
CBG CBG WAS 110, NO INSULIN GIVEN PER SLIDING SCALE ORDERS. pt denies further needs at this time, table and call light within reach. bed alarm on. at bedside.
--- NOTE | 2020-09-03 07:38 | NUR ---
dr raymundo made aware of pt's blood sugar results throughout shift and reports of lung tightness when oob, no new orders at this time.
--- NOTE | 2020-09-03 08:45 | NUR ---
MED PASS + ASSESSMENT pt assessment complete, VSS. pt HR still >110 at this time. pt sitting up to edge of bed, visiting with . pt able to take all meds without difficulty. pt denies pain and nausea at this time, pt reports slight discomfort with coughing. pts lungs adventcious throughout. pt had none of his breakfast. pt reports "feeling ful from his snack last night still". pt denies further needs at this time. table and call light within reach.
--- NOTE | 2020-09-03 09:45 | NUR ---
ROUNDING pt denies pain, nausea, and SOB at this time. pts o2sat is 96% on RA. pt in chair, watching TV with . table and call light within reach.
--- NOTE | 2020-09-03 10:31 | NUR ---
PATIENT UP IN ROOM, IN ROOM. VITALS AND I&OS CHARTED, GARBAGE EMPTIED.
--- NOTE | 2020-09-03 11:00 | NUR ---
ROUNDING pt up to bathroom with SBA. pt able to void at this time. pt back to chair. pt denies pain and nausea at this time. pts o2sat is 98% on RA. pt in chair, watching TV with . table and call light within reach.
--- NOTE | 2020-09-03 12:30 | NUR ---
MED PASS + ENCOURAGED TO EAT pt CBG was 83, no insulin given per sliding scale orders. pt getting IV digoxin at this time without difficulty. pt educated about hypoglycemia and he and his verbalized understanding. pt given jello, applesauce, and crackers to eat at this time. pt also given about 100mls of mixed stein Ensure juice. pt encouraged to drink and eat what he can, at least some of the juice and applesauce if nothing else. pt verbally agreed. pt VSS. pt in chair, table and call light withn reach.
--- NOTE | 2020-09-03 13:20 | NUR ---
ROUNDING pt visiting with . pt denies needs at this time. table and call light within reach.
--- NOTE | 2020-09-03 13:30 | NUR ---
No change in plan for discharge.
--- NOTE | 2020-09-03 13:47 | NUR ---
PATIENT STATES HIS APPETITE IS FAIR, MOSTLY BECAUSE HE HASN'T HAD A BM IN A FEW DAYS. HE WAS EATING NORMAL FOR HIM PRIOR TO ADMISSION. HE SAID SOMETIMES HE HAS EATEN TOO MUCH WHILE HERE AND HAS FELT A LITTLE UNCOMFORTABLE AFTER. HIS NORMAL WEIGHT IS ABOUT 142 LBS. HIS ADMIT WEIGHT WAS 154 LBS, A 12 LB INCREASE FROM HIS NORM. SOME OF THIS COULD BE FROM NO BM LATELY. HE HAS NOT LOST ANY WEIGHT FROM HAVING COPD. CURRENT DIET IS A 60 GM CONSISTENT CARB WHICH IS APPROPRIATE. NO NUTRITION INTERVENTION NEEDED AT THIS TIME. GAVE HIM FRESH WATER AND RECORDED WHAT HE DRANK. WILL CONTINUE TO MONITOR.
--- NOTE | 2020-09-03 13:55 | NUR ---
ROUNDING + MD GALLEGO TO BEDSIDE pt meeting with MD Gallego at this time. MD educating pt and pts on pts condition and medications. pt reports needing something for bowel movements, says he isn't having them as frequently. pt denies further needs at this time. table and call light within reach.
--- NOTE | 2020-09-03 14:30 | NUR ---
MED PASS + ASSESSMENT pt assessment complete, bases dim, upper lobes coarse. pt reports feeling "better" than earlier this morning. pt sitting up at bedside, talking with . pt able to get med without difficulty. pt denies further needs at this time. table and call light within reach.
--- NOTE | 2020-09-03 15:01 | NUR ---
PATIENT SITTING AT SIDE OF BED, IN ROOM. VITALS AND I&OS CHARTED. FRESH ICE WATER PROVIDED, JELLO AND SPRITE PROVIDED WELL. WARM WIPES PROVIDED FOR A BED BATH. CALL LIGHT IN REACH
--- NOTE | 2020-09-03 21:50 | NUR ---
THIS RN IN TO ASSESS PT AND TAKE VITALS. RN RAFAEL IN TO ASSIST WITH VITALS. PT MEDICATION ADMINISTERED AT THIS TIME, NO INSULIN ADMINISTERED BLOOD SUGARS WERE WITHIN RANGE (SEE MAR). PT WAS AWAKE AND ALERT IN BEDSIDE CHAIR READING AT THIS TIME. PT ASSESSED, VITALS TAKEN, PT REPORTS NO FURTHER NEEDS WHEN ASKED, WILL CONTINUE PLAN OF CARE. CALL LIGHT IN REACH.
--- NOTE | 2020-09-03 21:53 | NUR ---
CBG 127, NO COVERAGE REQUIRED. ICE WATER PROVIDED.
--- NOTE | 2020-09-04 03:10 | NUR ---
THIS RN IN TO ASSESS PT AND CHECK BLOOD SUGAR. PT SITTING IN BEDSIDE CHAIR AWAKE AND ALERT. PT STATES HES BEEN AWAKE FOR A BIT. PT REPORTS NO PAIN AND NO SOB AT THIS TIME. PT ASSESSED AT THIS TIME, BLOOD SUGAR CHECKED HIS BLOOD SUGAR WAS PREVIOUSLY LOW AROUND THIS TIME LAST NIGHT. BLOOD SUGAR WNL, ASSESSMENT COMPLETE. PT REPORTS NO FURTHER NEEDS AT THIS TIME, WILL CONTINUE PLAN OF CARE, CALL LIGHT IN REACH.
--- NOTE | 2020-09-04 06:30 | NUR ---
IN TO GET VITALS, PT UP TO VOID RECENTLY, DAILY WEIGHT TAKEN, FRESH ICE WATER REFILLED AT THIS TIME, PT IS UP TO THE CHAIR, NO FURTHER NEEDS
--- NOTE | 2020-09-04 07:34 | NUR ---
REPORT FROM VIRGILIO RN & RAFAEL RN INCLUDED: pt had an uneventufl evening. pt was able to sleep in the chair most of the night. pt denied pain and nausea and SOB through the shift. pt CBG at 0300 was 97. pt VSS. HR around 90-105. pt alert and pleasant upon greeting this morning. Breathing even and unlabored, table and call light within reach.
--- NOTE | 2020-09-04 07:35 | NUR ---
ROUNDING pt reports that the reason he slept in the chair was not due to SOB, but due to "getting tired of being here and in that bed". pt and pts anticipating DC today if possible, but still fully cooperative with cares. pt given coffee and breakfast ordered. table and call light within reach, at chair side.
[2020-09-04] MEDS ORDERED: DIGITEK125 MCG PO (08:58)
[2020-09-04] MEDS ORDERED: METOPROLOL TART50 MG PO (09:00)
[2020-09-04] MEDS ORDERED: PREDNISONE5 MG PO (09:04)
--- NOTE | 2020-09-04 09:30 | NUR ---
ASSESSMENT + MED PASS pt able to take all meds as ordered, without difficulty. pt assessment complete, VSS. pt o2sats 98% on RA at this time. no SOB. pt denies pain and nausea at this time. table and call light within reach.
--- NOTE | 2020-09-04 10:27 | NUR ---
PATIENT AWAKE IN CHAIR, IN ROOM. VITALS AND I&OS CHARTED. FRESH ICE WATER PROVIDED. CALL LIGHT IN REACH, NO OTHER NEEDS AT THIS TIME
--- NOTE | 2020-09-04 10:30 | NUR ---
PATIENT BEING DC pt and verbalized understanding of DC instructions and follow up cares plans. VSS. pt IV pulled at this time.
[2020-09-04] MEDS ORDERED: ALLOPURINOL100 MG PO (10:54)
== END 2020-09-04 11:32 | disposition home or self-care (01) | DRG 189 ==
LOC: ED 12:15 → MS 12:18
PROVIDERS: ADMIT Student in an Organized Health Care Education/Training Program; ATTEND Student in an Organized Health Care Education/Training Program
DX: J96.01 Acute respiratory failure with hypoxia (principal); I21.A1 Myocardial infarction type 2; J44.1 Chronic obstructive pulmonary disease with (acute) exacerbation; N17.9 Acute kidney failure, unspecified; I42.9 Cardiomyopathy, unspecified; Z20.822 Contact with and (suspected) exposure to COVID-19; I48.0 Paroxysmal atrial fibrillation; I25.10 Atherosclerotic heart disease of native coronary artery without angina pectoris; I08.1 Rheumatic disorders of both mitral and tricuspid valves; E11.22 Type 2 diabetes mellitus with diabetic chronic kidney disease; N18.9 Chronic kidney disease, unspecified; E11.65 Type 2 diabetes mellitus with hyperglycemia; T38.0X5A Adverse effect of glucocorticoids and synthetic analogues, initial encounter; E11.649 Type 2 diabetes mellitus with hypoglycemia without coma; T38.3X5A Adverse effect of insulin and oral hypoglycemic [antidiabetic] drugs, initial encounter; Y92.239 Unspecified place in hospital as the place of occurrence of the external cause; Z88.1 Allergy status to other antibiotic agents; Z88.8 Allergy status to other drugs, medicaments and biological substances; Z79.899 Other long term (current) drug therapy; Z79.01 Long term (current) use of anticoagulants; Z79.84 Long term (current) use of oral hypoglycemic drugs; Z79.02 Long term (current) use of antithrombotics/antiplatelets; Z79.51 Long term (current) use of inhaled steroids; Z79.52 Long term (current) use of systemic steroids
CPT/HCPCS: 36415; 71045; 80048; 80053; 81001; 83735; 83880; 84484; 85025; 85610; 93005; 93010; 94640; 94760; 96374; 96375; 99285-25; C9803; J1160; J1815; J1940; J2930; J7121; J7512; U0003

== ENCOUNTER 2020-10-02 04:33 | Inpatient (IN) | payer MEDICARE, OTHER ==
[~2020-10-02] VITALS: Ht 170.2 cm; Wt 61.0 kg
[~2020-10-02 04:33] MED LIST changes: +AZITHROMYCIN250 MG PO; +CEPHALEXIN500 M1 PO; +DIGITEK125 MCG PO; +GABAPENTIN300 MG PO; +METOPROLOL TART50 MG PO; +PREDNISONE5 MG PO
--- OUTSIDE RECORDS SUMMARY | 2020-10-02 04:36 | XMS ---
PreManage Notification: ONEIDA YANEZ Security Consulting Database Administrator Events No recent Security Events currently on file CRITERIA MET - History of Sepsis Dx - [facility] - 2 Visits in 30 Days CARE PROVIDERS DANNI GO [facility] 09/01/2020-Current [facility]: [phone] [facility] PHONE: [phone] Phan has no Care Guidelines for this patient. Jay VISIT COUNT (12 MO.) [address] [place] [address] TOTAL 3 NOTE: Visits indicate total known visits. ED/UCC VISIT TRACKING (12 MO.) 10/02/2020 04:33 [facility] TYPE: Emergency COMPLAINT: - WEAKNESS 09/15/2020 14:53 [facility] TYPE: Emergency COMPLAINT: - WEAKNESS, L LEG PAIN DIAGNOSES: - Effusion, left knee - Type 2 diabetes mellitus without complications - Gout, unspecified - Essential (primary) hypertension - Pain in left knee - Chronic obstructive pulmonary disease, unspecified - Hyperlipidemia, unspecified - Atherosclerotic heart disease of [place] coronary artery without angina pectoris - Non-pressure chronic ulcer of other part of left foot with unspecified severity - Allergy status to other drugs, medicaments and biological substances - Personal history of nicotine dependence - jail (current) use of anticoagulants - Allergy status to analgesic agent - jail (current) use of systemic steroids - Allergy status to other antibiotic agents - Unspecified atrial fibrillation - Other senior living (current) drug therapy 08/31/2020 12:17 [facility] TYPE: Emergency COMPLAINT: - COPD INPATIENT VISIT TRACKING (12 MO.) 09/16/2020 03:17 [facility] [place] TYPE: Medical Surgical COMPLAINT: - GOUTY ARTHRITIS LT KNEE; DIABETIC ULCERS LT FOOT; HX OF CKD ST 3,CHF,DM COPD DIAGNOSES: 0. Pain in left knee 1. Gout, unspecified 2. Chronic atrial fibrillation, unspecified 3. Non-pressure chronic ulcer of left heel and midfoot with unspecified severity 4. Hypertensive heart and chronic kidney disease with heart failure and stage 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, or unspecified chronic kidney disease 5. Unspecified protein-calorie malnutrition 6. Bacteremia 7. Body mass index [BMI] 22.0-22.9, adult 8. Type 2 diabetes mellitus with foot ulcer 9. Type 2 diabetes mellitus with diabetic chronic kidney disease 10. Chronic kidney disease, stage 3 unspecified 11. Heart failure, unspecified 12. Chronic obstructive pulmonary disease, unspecified 13. Atherosclerotic heart disease of [place] coronary artery without angina pectoris 14. Tachycardia, unspecified 15. Hyperlipidemia, unspecified 16. Presence of coronary angioplasty implant and graft 17. Allergy status to other antibiotic agents 18. Allergy status to other drugs, medicaments and biological substances 19. Personal history of nicotine dependence 20. Family history of malignant neoplasm, unspecified 21. Family history of ischemic heart disease and other diseases of the circulatory system 08/31/2020 19:[address] [facility] [place] TYPE: Medical Surgical COMPLAINT: - COPD DIAGNOSES: - Allergy status to other antibiotic agents - Allergy status to other drugs, medicaments and biological substances - Paroxysmal atrial fibrillation - Rheumatic disorders of both mitral and tricuspid valves - street roller engineer (current) use of oral hypoglycemic drugs - Chronic kidney disease, unspecified - Adverse effect of glucocorticoids and synthetic analogues, initial encounter - Type 2 diabetes mellitus with hyperglycemia - street roller engineer (current) use of systemic steroids - Type 2 diabetes mellitus with diabetic chronic kidney disease - Acute respiratory failure with hypoxia - jail (current) use of inhaled steroids - Atherosclerotic heart disease of [place] coronary artery without angina pectoris - Type 2 diabetes mellitus with hypoglycemia without coma - Acute kidney failure, unspecified - Myocardial infarction type 2 - Chronic obstructive pulmonary disease with (acute) exacerbation - jail (current) use of anticoagulants - Cardiomyopathy, unspecified - Other before school babysitter (current) drug therapy - Unspecified place in hospital as the place of occurrence of the external cause - jail (current) use of antithrombotics/antiplatelets - Adverse effect of insulin and oral hypoglycemic [antidiabetic] drugs, initial encounter [email or web address]
--- NOTE | 2020-10-02 06:50 | EKG ---
[facility] [address] [facility] [place] [address] Signed Atrial fibrillation with premature ventricular or aberrantly conducted complexes Rightward axis Nonspecific ST and T wave abnormality Abnormal ECG When compared with ECG of 31-AUG-2020 12:28, Vent. rate has decreased BY 31 BPM Nonspecific T wave abnormality, worse in Anterior leads Nonspecific T wave abnormality, improved in Lateral leads Confirmed by COSMO GALLEGO MD ([id number]) on 10/02/2020 6:50:45 AM Electronically Signed By: COSMO GALLEGO MD 10/02/20 0650 PATIENT NAME: ONEIDA YANEZ Electrocardiogram DATE OF : 35 PHYSICIAN: COSMO GALLEGO MD REPORT #: [id number] REPORT IS CONFIDENTIAL AND NOT TO BE RELEASED WITHOUT AUTHORIZATION
--- NOTE | 2020-10-02 07:35 | NUR ---
RT COLLECTED RAPID COVID 19 SWAB USING [facility] AT THIS TIME WITH NO COMPLICATIONS.
--- NOTE | 2020-10-02 10:41 | NUR ---
New admit to the floor. Patient arrived to unit alert and oriented x4. Patient hard of hearing. at bedside. Patient reports left heel pain. Tylenol admin for this pain. Patient provided with snack per his request. bilat lower ext elevated at this time. Left heel has notable diabetic wound. Wound care nurse to see patient. PICC line flushed, immediate return of blood noted. Vanco started per provider order. No needs. Bed alarm intact. Call light within reach.
--- NOTE | 2020-10-02 11:26 | NUR ---
Dr. Smith made aware of bradycardia; heart rate of 39bpm and a 2 second pause reported. No new orders obtained at this time. Patient resting, no distress at this time. at bedside.
--- NOTE | 2020-10-02 12:50 | NUR ---
Pictures of foot wound taken and placed in chart. Consent obtained and placed in chart.
--- NOTE | 2020-10-02 13:00 | NUR ---
CCU CALLED TO REPORT BRADYCARDIA. VITALS TAKEN, STABLE, AND DOCUMENTED. DR LASHONDA LUJAN NOTIFIED. NO NEW ORDERS RECEIVED.
--- NOTE | 2020-10-02 15:48 | NUR ---
Pharmacy will dose vancomycin for subsequent dosing in the morning after labs are posted
--- NOTE | 2020-10-02 18:49 | NUR ---
PATIENT AWAKE IN BED, IN ROOM. WILL BE LEAVING FOR THE NIGHT, THIS PEARL CUTTER ASSURED HER THE BED ALARM WOULD BE ON FOR PATIENTS SAFETY. VITALS AND I&OS CHARTED, CALL LIGHT IN REACH, GARBAGE EMPTIED, NO OTHER NEEDS AT THIS TIME
--- NOTE | 2020-10-02 19:30 | NUR ---
RECEIVED SHIFT REPORT. PATIENT'S KERWIN IS GOING HOME. PATIENT RESTING QUIETLY AT THIS TIME, EYES CLOSED, RESPIRATIONS REGULAR AND EVEN, CALL LIGHT IN REACH AND BED ALARM ON.
--- NOTE | 2020-10-02 22:16 | NUR ---
PATIENT AWAKE WATCHING TV. PATIENT DENIES PAIN. ASSESSMENT COM[PLETE. PATIENT'S ICE WATER REFILLED AND PATIENT PULLED UP IN BED AND REPOSITIONED. ASKED PATIENT IS HE WANTED TO TRY AND USE THE URINAL AND HE TOLD ME,"I'M FINE FOR NOW, MAYBE LATER." PATIENT INSTRUCTED TO USE THE CALL LIGHT, OR THE BUTTONS ON THE BED WHEN HE NEEDS ANYTHING. PATIENT IS A LITTLE FORGETFUL THOUGH. CALL LIGHT IS IN REACH. JESS JAIMES ASSISTING WITH DUTIES IN THE ROOM AT THIS TIME. BED ALARM IS ON.
--- NOTE | 2020-10-02 23:53 | NUR ---
CCU CALLED D/T TELE NOT READING. ENTERED THE ROOM AND PT HAD REMOVED SOME OF HIS LEADS AND REMOVED HIS GOWN. BED WAS WET WITH URINE. WITH ASSISTANCE FROM FIONA MERCADO WE CLEANED PT UP AND CHANGED BEDDING. PT DENIES FURTHER NEEDS. CALL LIGHT IS CLOSE AND BED ALARM IS ON. REMINDED PT HOW TO USE CALL BUTTON.
--- NOTE | 2020-10-03 00:23 | NUR ---
PATIENT RESTING QUIETLY SUPINE AT THIS TIME. CALL LIGHT IS IN REACH, RESPIRATIONS REGULAR AND EVEN, EYES CLOSED, BED ALARM ON.
--- NOTE | 2020-10-03 01:53 | NUR ---
PATIENT'S 2AM VS AND ASSESSMENT COMPLETE. PATIENT VOIDED PER URINAL AD THIS WAS RECORDED. PATIENT GIVEN A NEW WARM BLANKET. PATIENT HAD NO OTHER NEEDS AT THIS TIME. CALL LIGHT IN REACH AND BED ALARM ON.
--- NOTE | 2020-10-03 03:50 | NUR ---
CALL LIGHT ANSWERED, pt STATES, "I NEED HELP...I DON'T KNOW WHAT'S GOING ON". pt REORIENTED BY THIS RN, SAFETY AND POC REASSURED. pt ASKED ABOUT , THERAPEUTIC COMMUNICATION PROVIDED AND REORIENTED TO PLACE, DATE, TIME, AND EVENTS. PRIMARY RN SUMAN MADE AWARE. BED ALARM REMAINS ON, CALL LIGHT IN REACH.
--- NOTE | 2020-10-03 07:47 | NUR ---
Vancomycin trough ordered for this morning, due to increase in serum creatinine. Subsequent vancomycin dosing based on renal function
--- NOTE | 2020-10-03 07:50 | NUR ---
Cefepime dose lowered to 1g q 24 hrs due to renal function. Est CrCl = 13.4ml/min
--- NOTE | 2020-10-03 07:52 | NUR ---
Hold warfarin today, due to supratherapeutic INR
--- NOTE | 2020-10-03 09:14 | NUR ---
Tylenol 650mg po admin for reports of 6/10 left foot pain.
--- NOTE | 2020-10-03 10:02 | NUR ---
Patient resting in bed, alert and oriented x3. Patient reports left heel pain; recent dose of tylenol given. PICC line flushed and hep locked; good blood return noted, dressing CDI. Patient has legs elevated, foot protectors on. Left heel wound appears to be healing, scant amount of sarosang drainage noted. CMS intact.
--- NOTE | 2020-10-03 12:09 | NUR ---
PATIENT STOOD BY RECLINER TO USE URINAL, GRIPPER SOCKS ON AND 2PA FOR SAFETY. IN ROOM. BACK TO BED, LINENS CHANGED. CALL LIGHT IN REACH, NO OTHER NEEDS AT THIS TIME
--- NOTE | 2020-10-03 15:18 | NUR ---
Patient resting in bed, eyes closed, respirations even and non labored. Patient has no notable distress. PICC line dressing remains CDI, IV abx infusing at this time. Call light within reach. at bedside resting in chair.
--- NOTE | 2020-10-03 15:25 | NUR ---
PATIENT RESTING IN BED, EYES CLOSED. IN CHAIR ASLEEP. WOKE TO VOICE. VITALS AND I&OS CHARTED. GARBAGE EMPTIED, CALL LIGHT IN REACH, NO OTHER NEEDS AT THIS TIME
--- NOTE | 2020-10-03 18:15 | NUR ---
PATIENT RESTING IN BED, AT BEDSIDE. VITALS AND I&OS CHARTED. PATIENT WOULD LIKE TO WAIT TIL TOMORROW FOR A BEDBATH, IS AFRAID OF GETTING COLD. THIS SENIOR PROGRAM MANAGER ASSURED HIM THE WIPES WOULD BE WARM, BUT WOULD PASS ON THE NOTE OF PLANS FOR TOMORROW. CALL LIGHT IN REACH, NO OTHER NEEDS AT THIS TIME
--- NOTE | 2020-10-03 19:50 | NUR ---
PATIENT'S JUST WENT HOME. PATIENT IS GETTING A NEB TREATMENT FROM RT AT THIS TIME. PATIENT HAS NO CURRENT CARE NEEDS. CALL LIGHT IS IN REACH.
--- NOTE | 2020-10-03 21:46 | NUR ---
PATIENT CALLED AT 2100 FOR ASSISTANCE AND UPON ENTERING THE ROOM PATIENT WAS SITTING ON THE SIDE OF THE BED AND HAD TAKEN OFF HIS GOWN AND WAS FINISHING REMOVING HIS TELE. THIS RN ASKED THE PATIENT WHAT HE NEEDED AND WHAT HE WAS DOING. PATIENT REPLIED,"I DON'T KNOW." A NEW GOWN WAS PLACED ON THE PATIENT AND NEW TELE LEADS WELL. PATIENT STOOD AT THE BEDSIDE WITH 1PA AND SHUFFLED BACK TOWARD THE TOP OF THE BED AND SAT DOWN AND THIS RN HELPED HIM LAY BACK DOWN AND GET COMFORTABLE IN BED. BOTH PATIENT'S LOWER LEGS ELEVATED ON PILLOWS. PICC LINE FLUSHED WITH 20MLS NS AND THEN HEP-LOCKED. PATIENT SEEMS MORE CONFUSED NOW THAN WHEN I ARRIVED AND HE REALIZES THIS HIMSELF AND JUST CALLED HIS TO SEE IF SHE WOULD COME IN AND STAY THE NIGHT AND SHE IS ON HER WAY. CALL LIGHT IN REACH, BED ALARM ON, PATIENT GIVEN NEW ICE WATER AND A NEW DIET SODA. PATIENT HAS NO OTHER NEEDS A THIS TIME.
--- NOTE | 2020-10-03 22:30 | NUR ---
2 PA TO BEDSIDE COMMODE USING WALKER. PATIENT IS BACK IN BED. IS IN THE ROOM.
--- NOTE | 2020-10-04 00:30 | NUR ---
PATIENT RESTING QUIETLY IN BED, EYES CLOSED, RESPIRATIONS REGULAR AND EVEN. PATIENT'S IS ASLEEP ON THE COUCH. CCU CALLED TO CHECK PATIENT HIS HR DROPPED TO 39BPM, PATIENT IS OK, PATIENT HAS BEEN DOING THIS SINCE ADMISSION AND MD IS AWARE. REPORTED BACK TO CCU PATIENT IS DOING OK. CALL LIGHT IS IN REACH AND PATIENT HS NO CARE NEEDS AT THIS TIME.
--- NOTE | 2020-10-04 01:58 | NUR ---
DOING ROOM CHECK ON THE PATIENT AND HE WAS AWAKE AND NEEDED TO VOID. PATIENT VOIDED 275MLS PER URINAL AND A PAIR OF PULL-UPS PLACED ON PATIENT. PATIENT'S REMAINS RESTING ON THE COUCH AND WARM BLANKETS GIVEN TO PATIENT AND HIS . CALL LIGHT IS IN REACH, PATIENT HAS NO OTHER NEEDS AT THIS TIME, LIGHTS TURNED DOWN SO PATIENT AND HIS SPOUSE CAN GO BACK TO SLEEP. BED ALARM IS ON.
--- NOTE | 2020-10-04 03:33 | NUR ---
PATIENT RESTING QUIETLY IN BED, BUT AWAKE. PATIENT DENIED NEED FOR ANT CARES AT THIS TIME. STILL SLEEPING ON THE COUCH. CALL LIGHT IN REACH AND BED ALARM ON.
--- NOTE | 2020-10-04 05:00 | NUR ---
PATIENT RESTING QUIETLY, EYES CLOSED, RESPIRATIONS REGULAR AND EVEN, CALL LIGHT IN REACH. PATIENT'S ASLEEP ON THE COUCH.
--- NOTE | 2020-10-04 06:36 | NUR ---
PATIENT AWAKE AND NEEDING TO USE THE URINAL WHICH HE DID. PATIENT ALL TWISTED UP IN HIS BLANKETS. PATIENT REPOSITIONED IN BED, GOWN PUT BACK ON, LEFT HEEL WOUNDS CLEANED WITH WOUND CLEANSER AND DRIED AND LEFT OPEN TO THE AIR AND DADA ABERNATHY LOOKING AT THE WOUNDS WELL. PATIENT HAD 2 VERY SMALL SCABS ON HIS BUTTOCKS THAT HAVE COME OF FROM HIM MOVING AROUND IN THE BED, AN ALLEVYN DRESSING PLACED OVER THE SPOTS AFTER WASHING THE AREA WITH SOME WOUND CLEANSER. LABS DRAWN FROM PICC LINE AND SENT. PATIENT GIVEN A NEW DIET SODA AND PATIENT'S GIVEN A CUP OF COFFEE. VS HAVE BEEN STABLE AND CALL LIGHT IS IN REACH.
--- NOTE | 2020-10-04 07:43 | NUR ---
REPORT RECEIVED FROM KATIE RN. PT CURRENTLY RECEIVING NEB TX. PT AND HIS WAVE THROUGH DOOR AND HAVE NO NEEDS AT THIS TIME. WILL CONTINUE PLAN OF CARE.
--- NOTE | 2020-10-04 08:45 | NUR ---
Scheduled medications administered, assessment complete, plan of care reviewed thoroughly with pt and his whom are both agreeable. TELE in place, pt reports no pain but mentions soreness in feet/ankles. Skin assessment complete. No insulin administered, BG within normal range. Fresh water provided, call light in reach
--- NOTE | 2020-10-04 09:16 | NUR ---
PATIENT IN BED WATCHING TV, IN ROOM. AM CARE DONE. VITALS CHARTED BY RN. CALL LIGHT IN REACH. NO FURTHER NEEDS AT THIS TIME.
--- NOTE | 2020-10-04 10:35 | NUR ---
IV BOLUS STARTED PER MD ORDER, TELE BATTERY REPLACED, PT REPORTS NO NEEDS
--- NOTE | 2020-10-04 11:07 | NUR ---
SPOKE WITH DIAMOND FROM LAB REGARDING RUNNING THE INDENTIFICATION ON THE YEAST GROW OUT ON HIS URINE CULT. SHE STATED THEY WOULD RUN IT.
--- NOTE | 2020-10-04 11:30 | NUR ---
PT AND UPDATED ON PLAN OF CARE, IMAGING, MEDICATIONS, FLUIDS. BOTH AGREEABLE TO PLAN. IVF INFUSING WNL. RT IN ROOM FOR NEB TX
--- NOTE | 2020-10-04 13:50 | NUR ---
PT REQUESTS BANDAGE TO L FOOT ULCER IT CONTINUALLY SKYLAR ON SOCKS, BEDDING ETC. PER PATY HENNING ORDER IODOSORB AND ALLEVYN APPLIED TO L HEEL AND ELEVATED ON PILLOW. PT STATES NO FURTHER NEEDS. IVF INFUSING WNL.
--- NOTE | 2020-10-04 14:30 | NUR ---
THIS RN INTO ROOM FOR CASE MANAGMENT EVAL. PATIENT RESTING IN BED WITH AT BEDSIDE. SEE CASE MANAGEMNT INTERVENTION FOR FURTHER INFORMATION. PATIENT AND STATE THEY HAVE NO FURTHER NEEDS AT THIS TIME. CALL LIGHT RESTING IN PATIENTS LAP.
--- NOTE | 2020-10-04 17:58 | NUR ---
PATIENT IN BED RESTING, AT BEDSIDE. VITALS AND I&O'S CHARTED. CALL LIGHT IN REACH. NO FURTHER NEEDS AT THIS TIME.
--- NOTE | 2020-10-04 19:36 | NUR ---
REPORT RECEIVED FROM DAY SHIFT RN. PT LYING IN BED ALERT AND ORIENTED. DENIES NEEDS AT THIS TIME. AT BEDSIDE. WHITE BOARD UPDATED. CALL LIGHT IN REACH.
--- NOTE | 2020-10-04 20:00 | NUR ---
THIS SALES REPRESENTATIVE JEWELRY AND ADJUSTER PIANO ACTION MICHELA HELP PATIENT STAND UP TO USE THE URINAL. PATIENT IS BACK IN BED. BED ALARM ON FOR SAFETY. PATIENT'S WAS IN THE ROOM BUT SHE WILL BE GOING HOME SHORTLY.
--- NOTE | 2020-10-04 20:02 | NUR ---
CALL LIGHT ANSWERED. 2PA IN ROOM TO STAND WITH FWW FOR VOID, pt TOLERATED WELL. BACK IN BED, LEGS ELEVATED ON PILLOWS. BED ALARM ON. TO LEAVE FOR NIGHT, BED ALARM SET. DISCUSSED WITH pt AND ABOUT MOVING pt CLOSER TO NURSES STATION IF pt GETS CONFUSED DURING NIGHT, pt AND REQUEST TO STAY FOR NOW AND AGREE TO MOVE IF NECESSARY. CALL LIGHT IN REACH.
--- NOTE | 2020-10-04 22:00 | NUR ---
EVENING ASSESSMENT COMPLETE. SCHEDULED MEDS ADMINISTERED PER EMAR. PT DENIES PAIN OR NAUSEA. TELE #[address] HR IRREGULAR IN THE 70'S. BLE ELEVATED ON PILLOWS. DRESSING TO RIGHT HEEL INTACT. PICC LINE PULSATILE FLUSH WITH NS, BRISK BLOOD RETURN NOTED. DRESSING INTACT. SITE WNL. IV ABX INFUSING. PT DENIES FURTHER NEEDS. BED ALARM FOR SAFETY. CALL LIGHT IN REACH.
--- NOTE | 2020-10-04 22:44 | NUR ---
1 PA. PATIENT CALLED TO USE THE URINAL. PATIENT NEEDS ASSISTANCE TO GET UP FROM BED TO STAND UP USING WALKER. PATIENT IS BACK IN BED. CALL LIGHT WITHIN REACH. BED ALARM ON FOR SAFETY.
--- NOTE | 2020-10-04 23:09 | NUR ---
IV PUMP ALARMING, DISTAL OCCLUSION, TUBING PINCHED. IVF NOW INFUSING PICC LINE WNL. pt RESTING IN BED WITH EYES CLOSED, BREATHING UNLABORED. BED ALARM ON.
--- NOTE | 2020-10-05 00:22 | NUR ---
PT RESTING IN BED WITH EYES CLOSED, NAD. RESPIRATIONS EVEN AND UNLABORED. IVF INFUSING. BED ALARM FOR SAFETY. CALL LIGHT IN REACH.
--- NOTE | 2020-10-05 01:05 | NUR ---
CALL LIGHT ANSWERED. IN TO ASSIST PT TO USE URINAL TO VOID 280 ML CLEAR YELLOW URINE IN BED. BLE ELEVATED ON PILLOWS. BED ALARM FOR SAFETY. CALL LIGHT IN REACH.
--- NOTE | 2020-10-05 02:54 | NUR ---
CALL LIGHT ANSWERED. PATIENT NEEDS HELP TO USE THE URINAL. PATIENT TRIED TO USE URINAL WHILE LYING DOWN. PATIENT ABLE TO VOID 175 ML. CALL LIGHT IN REACH. BED ALARM ON.
--- NOTE | 2020-10-05 04:35 | NUR ---
NEW BAG IVF INFUSING. ASSISTED PT TO REPOSITION IN BED. PT REPORTS DISCOMFORT IN RIGHT HEEL, REFUSES PRN FOR PAIN WHEN OFFERED. DRESSING TO RIGHT HEEL INTACT. BLE ELEVATED ON PILLOWS. NO FURTHER NEEDS AT THIS TIME. BED ALARM ON. CALL LIGHT IN REACH.
--- NOTE | 2020-10-05 05:36 | NUR ---
THIS EASEMENT WORKER HELPED PATIENT USE THE URINAL WHILE LAYING ON BED. V/S AND I&O'S DONE. CALL LIGHT WITHIN REACH. BED ALARM ON.
--- NOTE | 2020-10-05 06:29 | NUR ---
MORNING LABS DRAWN THROUGH PICC LINE PER POLICY. NO COMPLICATIONS, PT AMADA WELL. IV ABX INFUSING. ASSISTED PT TO REPOSITION IN BED. BLE ELEVATED. NO FURTHER NEEDS. BED ALARM IN PLACE. CALL LIGHT IN REACH.
--- NOTE | 2020-10-05 06:58 | NUR ---
CALL LIGHT ANSWERED. PT C/O SOB. SppO2 96-99% ON RA. HR 80'S. RESPIRATIONS EVEN. NO CRACKLES OR WHEEZES HEARD IN LUNGS. RT NOTIFIED PT WOULD LIKE NEB TX. IN ROOM. COFFEE PROVIDED PER REQUEST.
--- NOTE | 2020-10-05 07:59 | NUR ---
Scheduled medications administered. Assessment complete. Pt resting in bed, alert and oriented x4. States no pain or discomfort at this time. IVF infusing WNL, PICC line WNL, brisk blood return and pulsatile flushing (20 ML) used at this time. Dressing to L foot C/D/I. Pt repositioned in bed for breakfast, at bedside. Call light in reach
--- NOTE | 2020-10-05 09:15 | NUR ---
IV pump alarming, error resolved. at bedside, engaged in care and attentive to patient. Both state no needs, call light in reach.
--- NOTE | 2020-10-05 10:49 | NUR ---
CONSULT FOR NUTRITION DUE TO WOUND ON FOOT. PATIENT IS SLEEPING BUT IS AWAKE. SHE SAID HE IS EATING WELL AND HAS A GOOD APPETITE. HIS DIABETES WAS UNDER GOOD CONTROL AT HOME BEFORE HE GOT SICK. HE DOES NOT FOLLOW ANY SPECIAL DIET AT HOME, THEY EAT BALANCED MEALS FOR THE MOST PART. I EXPLAINED HE IS ON A 60 GM CONSISTENT CARB DIET HERE. I EXPLAINED IT IS IMPORTANT THAT HE CONSUMES PROTEIN THROUGHOUT THE DAY. SHE SAID HE DOES EAT MEAT AND EGGS AND HE DRINKS MILK AT HOME. SHE HAS NO QUESTIONS FOR ME. PATIENT APPEARS TO BE EATING ADEQUATELY THUS FAR. WILL CONTINUE TO MONITOR.
--- NOTE | 2020-10-05 10:55 | NUR ---
PATIENT UP TO BATHROOM AND BACK TO BED, 1PA FWW. PATIENT SAT ON EDGE OF BED AND DID ORAL CARE. WARM BATHWIPES AND SHOWER CAP GIVEN. PATIENT WANTED TO HELP WITH BED BATH. LINENS CHANGED. VITALS AND I&O'S CHARTED. CALL LIGHT IN REACH. NO FURTHER NEEDS AT THIS TIME.
--- NOTE | 2020-10-05 13:03 | NUR ---
new bag IVF neeta, pt reports no needs at this time
--- NOTE | 2020-10-05 14:00 | NUR ---
SCHEDULED ABX INFUSING, PT REPORTS NO FURTHER NEEDS AT THIS TIME. CALL LIGHT IN REACH
--- NOTE | 2020-10-05 17:21 | NUR ---
medications administered, pt reports no needs and is prepared for dinner. No SS insulin administered as CBG within range.
--- NOTE | 2020-10-05 19:49 | NUR ---
REPORT RECEIVED FROM DAY SHIFT RN. PT LYING IN BED ALERT AND ORIENTED. DENIES NEEDS AT THIS TIME. WHITE BOARD UPDATED. FAMILY IN ROOM. CALL LIGHT IN REACH.
--- NOTE | 2020-10-05 20:19 | NUR ---
ASSISTED PATIENT USED THE URINAL. PATIENT JUST STAYED LAYING IN BED. PATIENT VOIDED 200ML. RT ALEXANDRE WAS WITH PATIENT. CALL LIGHT WITHIN REACH.
--- NOTE | 2020-10-05 22:30 | NUR ---
EVENING ASSESSMENT COMPLETE. SCHEDULED MEDS ADMINISTERED PER EMAR. IV ABX INFUSING. PT REPOSITIONED IN BED. ALLEVYN PLACED ON LEFT INNER GLUTEAL FOLD DUE TO REDNESS AND SMALL ABRASIONS X 2. DRESSING CHANGED ON LEFT HEEL OLD DRESSING COMING OFF. WOUND CLEANSED, DRIED, IODOFORM APPLIED AND CLEAN ALLEVYN PLACED. BLE ELEVATED ON PILLOWS. PT DENIES PAIN. REPORTS BREATHING IS "FINE". FINE CRACKLES HEARD IN LLL. HOB ELEVATED. SpO2 94% ON RA. WARM BLANKET PROVIDED. PT DENIES FURTHER NEEDS. CALL LIGHT IN REACH. BED ALARM FOR SAFETY.
--- NOTE | 2020-10-06 00:01 | NUR ---
PT RESTING IN BED WITH EYES CLOSED, NAD.
--- NOTE | 2020-10-06 00:14 | NUR ---
PATIENT CALLED FOR ASSISTANCE TO USE THE URINAL. PATIENT JUST STAYED LAYING DOWN IN BED.
--- NOTE | 2020-10-06 00:59 | NUR ---
ANSWERED CALL LIGHT. ASSISTED PATIENT TO USE THE URINAL. NO OTHER NEEDS AT THIS TIME. CALL LIGHT IN REACH AND SIDE TABLE. BED ALARM ON.
--- NOTE | 2020-10-06 02:30 | NUR ---
ASSISTED PATIENT USING URINAL. PATIENT VOIDED. PATIENT STATED HE IS HAVING LABORED BREATHING AND NEEDED TREATMENT. RT WAS NOTIFIED. NO OTHER NEEDS AT THIS TIME. PATIENT REMAINED IN BED CALL LIGHT AND SIDDE TABLE WITHIN REACH. BED ALARM ON.
--- NOTE | 2020-10-06 03:45 | NUR ---
PT REPORTS BREATHING IMPROVED AFTER BREATHING TX. HOB ELEVATED. REPOSITIONED WITH PILLOWS. BLE ELEVATED ON PILLOWS. CALL LIGHT IN REACH.
--- NOTE | 2020-10-06 04:50 | NUR ---
PT RESTING IN BED WITH EYES CLOSED, NAD. RESPIRATIONS EVEN AND UNLABORED. IVF INFUSING. BED ALARM FOR SAFETY. CALL LIGHT IN REACH.
--- NOTE | 2020-10-06 05:57 | NUR ---
MORNING LABS DRAWN PER PROTOCOL OUT OF PICC LINE. PULSATILE FLUSH WITH 20 ML NS AND RETURNED TO MAINTENANCE FLUIDS. IV ABX INFUSING. PT REPOSITIONED IN BED. ALLEVYN TO LEFT HEEL REPLACED THE OLD ONE WAS FALLING OFF. PT REPORTS SOB AT TIMES "IF I DON'T MOVE I AM FINE". LUNGS DIM THROUGHOUT, FINE CRACKLES HEARD IN THE BASES. PT DENIES PAIN. FRESH LIQUIDS PROVIDED. NO FURTHER NEEDS AT THIS TIME. CALL LIGHT IN REACH.
--- NOTE | 2020-10-06 07:30 | NUR ---
RECEIVED REPORT AT 0700, FOUND PT IN BED WITH AT BEDSIDE. PT HAD NO NEEDS OR CONCERNS AT THAT TIME.
--- NOTE | 2020-10-06 08:50 | NUR ---
BG WAS WDL, NO INSULIN GIVEN. PT HAS SOME SOB WITH WALKING WHICH IS NEW TO HIM. ALL LOBES AT THIS TIME ARE CLEAR. WILL LET MD GALLEGO KNOW. DRESSING LEFT HEEL COVERED C/D/I. PEDIS PULSES +1, RADIAL PULSES +2, BILATERAL FOOT EDEMA +2. BILATERAL LOWER LEGS JUAN IN APPEARENCE.
--- NOTE | 2020-10-06 10:00 | NUR ---
Ihad the pleasant experience of Visiting with Nestor and his this morning. They both express appreciation for the wonderful care that Nestor has received while he has been in the hospital. In regards to the nursing staff Nestor states "They are absolutely wonderful." His added, "I like it here because they treat you like people." We also reviewed Nestor's preferences for discharge, as he would like to go home and be successful at home without having to return to the hospital. We discussed the neccessity to keep follow-up appointments, to know when to call the doctor as opposed to "waiting",and we talked about his medications. Nestor states that he takes a lot of medicine which can get a bit confusing. I informed him that the pharmacist would come in prior to discharge and go over all of his medications with him. He was very appreciative of this information. I left a paper and pen for him and his so they could write down any questions they might have for the pharmacist or the doctor. & Mrs. Miranda both seemed very interested in the success of his care. All questions were answered.
--- NOTE | 2020-10-06 12:30 | NUR ---
IV PUMP KEPT BEEPING. PICC LINE IN RIGHT UPPER ARM DOES HAVE BLOOD RETURN AND FLUSHES WELL. DRESSING CHANGE DUE ON 10/07/20.
--- NOTE | 2020-10-06 13:53 | NUR ---
PT IS SEEN FOR A WOUND CONSULT OF THE LEFT FOOT/ANKLE WOUNDS. THIS PT IS PREVIOUSLY SEEN IN FOR IV THERAPY AND WOUND CARE. IT IS REQUESTED TO LOOK AT THE WOUND TO SEE IF CURRENT ORDERS ARE AN APPROPRIATE TREATMENT. THE DRESSING IS REMOVED. IT IS NOTED THAT THE WOUND HAS A LOT OF DRIED/ SKIN AND IODOSORB. THE WOUNDS ARE CLEANSED, SKIN IS REMOVED TO EXPOSED BEAUTIFULLY HEALING WOUNDS. THE BASE OF THE WOUNDS ARE GRANULATING WITH PALE PINK WOUND BEDS. IODOSORB AND A NEW DRESSING ARE APPLIED. THE FOOT HAS 3+ PITTING EDEMA PRESENT, BUT DENIES PAIN WITH THE SWELLING.
--- NOTE | 2020-10-06 14:14 | NUR ---
LASIX SO FAR HAS NOT INCREASED URINATION. MD GALLEGO IS AWARE. ESTHELA WOUND RN CHANGED DRESSING ON RIGHT HEAL. WOUND LOOKS GOOD AND WE WILL PROCEED WITH THE CURRENT WOUND CARE PLAN. ALL LOBES ARE CLEAR, NO NEW COCNERNS WERE NOTED WITH THIS ASSESSMENT.
--- NOTE | 2020-10-06 14:15 | NUR ---
Spoke with pt and . Both feel he is doing better. Pt has a walker at home but states concern he has not been walking. I will notify Dr. Smith. Spoke with Dr. Smith and pt had already mentioned to her, PT has been ordered. Pt and plan on dc to home, will speak with PT tomorrow to check if pt is capable of walking or is deconditioned.
--- NOTE | 2020-10-06 14:39 | NUR ---
VITALS AND I&OS CHARTED, IN ROOM. PATIENT DIDN'T LIKE THE SOUP FOR LUNCH, DRANK A KENNETH. DENIES HUNGER FOR ANYTHING ELSE AT THIS TIME. CALL LIGHT IN REACH
--- NOTE | 2020-10-06 14:45 | NUR ---
PATIENT HAS HAD VERY LITTLE URING OUTPUT SINCE THIS MORNING. NONE IN THE LAST FEW HOURS, DADA MUÑOZ NOTIFIED.
--- NOTE | 2020-10-06 17:01 | NUR ---
MD MCINTYRE WAS CALLED AT 1645 DUE TO A CONCERNS FOR FLUID OVERLOAD. CHEST X-RAY WAS ORDERED, BLADDER SCAN WAS ORDERED AND A STRAIGHT CATH WAS ORDERED IF BALDDER SCAN SHOWED >400MLS. BLADDER SCAN DID SHOW >492MLS. PT NOW GOING FOR CHEST X-RAY. STRAIGHT CATH TO BE DONE WHEN HE RETURNS. PT NOW ALSO IS HL, FLUIDS HAVE BEEN STOPPED.
--- NOTE | 2020-10-06 18:13 | NUR ---
STRAIGHT CATH WAS DONE AT 1800, 600MLS URINE OUT. WILL BLADDER SCAN AGAIN 4-6HR FROM 1800. WILL LET PHYSICAL THERAPY AIDE KNOW.
--- NOTE | 2020-10-06 18:15 | NUR ---
DURING REPORT THIS AM, NIGHT RN COMMUNICATED THAT PT HAS HAD INCREASING SOB WITH ACTIVITY AND FINE CRACKLES WERE HEARD IN THE BASES. MD GALLEGO WAS NOTIFIED. 10MG OF IV LASIX WAS GIVEN THIS MORNING. DURING MY FIRST ASSESSMENT, NO CRACKLES WERE HEARD. PT HOWEVER WAS SOB WHEN MOVING AROUND IN BED. AT AOBUT 1500, PT INCREASINGLY BECAME SOB TO THE POINT THAT 1L O2 NC WAS APPLIED. PT AT THAT TIME ALSO HAD NOT URINATED SINCE 1000. BLADDER SCAN SHOWED >370MLS AT THAT TIME. PT BY 1645 STILL DID NOT VOID. MD MCINTYRE WAS CALLED. PT ABDOMEN AT THAT TIME APPEARED LARGER AND FIRMER THAN THIS MORNING. RLL HAD SOME COARSNESS TO IT AT THAT TIME ALSO. ORDERS FOR A CHEST X-RAY, BLADDER SCAN AND STRAIGHT CATH PARAMETERS WERE GIVEN WELL. BLADER SCAN SHOWD >492MLS SO PT WAS STRAIGHT CATHED AT 1800. PT REMAINS ON 1L O2 NC, A 10FR CATH WAS USED DUE TO HYPOSPADIAS.
--- NOTE | 2020-10-06 19:02 | NUR ---
IN ROOM FOR REPORT, PT IS AWAKE IN BED WITH HIS IN THE ROOM. HE DENIES NEEDS AT THIS TIME. CALL LIGHT IS CLOSE.
--- NOTE | 2020-10-06 19:30 | NUR ---
IN ROOM FOR REPORT, PT IS RESTING WITH EYES CLOSED IN THE CHAIR. O2 SAT IS 93% ON RA. CALL LIGHT IS CLOSE.
--- NOTE | 2020-10-06 21:15 | NUR ---
IN TO GET VITALS, PT 1PA PIVOT TO THE BSC TO VOID, NO LUCK, RN TO BLADDER SCAN, NO FURTHER NEEDS AT THIS TIME
--- NOTE | 2020-10-06 21:45 | NUR ---
IN ROOM TO ASSESS PT AND ADMINISTER MEDICATIONS. PT DENIES PAIN BUT HAS SOME SOB. REMOVED O2 AND HIS SPO2 REMAINED AT 96-97% BUT SHORTLY AFTER PT REPORTED FEELING INCREASED SOB WHILE IN BED. REPLACED O2 AT 1LNC AND PT STATES THIS MAKES HIM FEEL BETTER. PT WAS UNABLE TO VOID BUT BLADDER SCAN SHOW 294 MLS AT THIS TIME. WILL RETURN LATER TO SEE IF HE CAN VOID AND SCAN HIS BLADDER AGAIN IF HE IS UNABLE. PT DENIES FURTHER NEEDS. CALL LIGHT IS CLOSE.
--- NOTE | 2020-10-06 23:40 | NUR ---
IN TO GET PT UP FOR VOID ATTEPMT, 1PA PIVOT TO BSC, PT CALLED ONCE DONE, 200MLs VOIDED AT THIS TIME, PT BAKC TO BED, NO FURTHER NEEDS
--- NOTE | 2020-10-07 00:49 | NUR ---
PT IS RESTING WITH EYES CLOSED, RR IS EVEN AND NONLABORED. CALL LIGHT IS CLOSE.
--- NOTE | 2020-10-07 02:19 | NUR ---
PT IS RESTING WITH EYES CLOSED, RR IS EVEN AND NONLABORED. CALL LIGHT IS CLOSE.
--- NOTE | 2020-10-07 03:12 | NUR ---
CALL LIGHT ON, IN TO ASST PT TO THE BSC, 1PA PIVOT, PT CALLED ONCE READY, 250MLs VOID AT THIS TIME, PT NOW BACK IN BED, ICE WATER REFILLED, NO FURTHER NEEDS AT THSI TIME
--- NOTE | 2020-10-07 03:30 | NUR ---
IN TO CHECK ON PT. HE JUST VOIDED 250MLS IN BSC WITH HELP OF FIONA MERCADO. BACK IN BED HE COMPLAINS OF SOB BUT SPO2 READS 99% ON 1LNC. EDEMA IN FEET REMAINS UNCHANGED AND LUNGS SOUND BETTER THAN EARILER IN SHIFT WITH VERY SLIGHT EXP WHEEZE ON LEFT. RT WILL BE IN TO GIVE NEB TRT. PT STATES IT'S EASIER TO BREATHE THE HIGHER THE BED IS. HE DENIES PAIN AT THIS TIME, DRESSINGS ARE INTACT AND CALL LIGHT IS CLOSE.
--- NOTE | 2020-10-07 06:25 | NUR ---
IN TO ASST RN WITH VITALS, NO FURTHER NEEDS
--- NOTE | 2020-10-07 06:34 | NUR ---
ADMINISTERED TYLENOL FOR 3/10 PAIN. NANCY BLOOD OFF PICC FOR LABS AND HEPLOCKED. VS TAKEN AND ENTERED AND PT DENIES FURTHER NEEDS. CALL LIGHT IS CLOSE.
--- NOTE | 2020-10-07 08:15 | NUR ---
PT STATED THAT HIS SOB WAS WORSE THIS MORNING. LOBES ARE CLEAR BUT DIMINIDHED. PT STILL ON 1L O2 NC. BILATERAL FOOT EDEMA IS +3 THIS AM. DOPPLER NEEDED FOR PEDIS PULSES. ABD SOUNDS PRESENT. WILL CONTINUE MONITOR.
--- NOTE | 2020-10-07 08:46 | NUR ---
Pt discussed in IDT. Updated Dr. Jackson, Dr. Smith wanted this pt. considered for TC if needing rehab. Per Dr. Jackson he will need to see this pt before he makes a decision.
--- NOTE | 2020-10-07 10:00 | NUR ---
PT IN ROOM WITH AT BEDSIDE. PT HAS NOT URINATED SINCE 0700. STUDENT WILL BALDDER SCAN PT WHEN RT IS DONE IN ROOM.
--- NOTE | 2020-10-07 11:00 | NUR ---
Notified by Dr. Gaitan he does not feel this pt is appropriate for TC at this time. He may consider later this week or over the weekend.
--- NOTE | 2020-10-07 14:55 | NUR ---
LOBES CLEAR BUT DIMINISHED IN THE BASES. EDEMA BILATERAL FEET +3 WHICH IS UNCHANGED. PT BACK IN BED WITH LEGS ELEVATED. CAP REFILL IS <3SEC ON TOES. NO NEW COCNERNS NOTED.
--- NOTE | 2020-10-07 16:00 | NUR ---
NO CONFIRMATION CHEST X-RAY TO BE ORDERED AFTER PICC LINE WAS PULLED BACK 4CM PER MD MCINTYRE.
--- NOTE | 2020-10-07 17:52 | NUR ---
PT STILL HAS LEGS ELEVATED. NO REDUCTION IN EDEMA NOTED ON FEET BUT HIS FEET ARE WARMER AND HIS SKIN LOOKS WDL AT THIS TIME. PT HAD NO NEEDS AT THIS TIME.
--- NOTE | 2020-10-07 19:20 | NUR ---
SHIFT REPORT RECEIVED FROM DAYSHIFT DADA MUÑOZ AT BEDSIDE, pt AWAKE AND SITTING ON EDGE OF BED. ALSO IN ROOM. PICC LINE DRESSING TO RUE C/D/I, HEP LOCKED PER SHIFT REPORT. NO NEEDS VERBALIZED AT THIS TIME, CALL LIGHT IN REACH.
--- NOTE | 2020-10-07 19:24 | NUR ---
PATIENT SET UP ON THE SIDE OF THE BED FOR HIS MEALS.
--- NOTE | 2020-10-07 20:25 | NUR ---
IN TO ASST PT TO BED WITH RN, NO FURTHER NEEDS AT THIS TIME, HEADING HOME FOR THE NIGHT
--- NOTE | 2020-10-07 22:15 | NUR ---
ASSESSMENT COMPLETE, VSS. SCHEDULED MEDS GIVEN, SEE EMAR. pt A/OX4, INTERACTIVE WITH WELFARE OFFICER. DENIES PAIN AND NAUSEA. PICC LINE TO RUE WNL, DRESSING C/D/I, BRISK BLOOD RETURN NOTED. FLUSHED WITH NS AND HEP LOCKED PER POLICY. ALLEVYN TO BACKSIDE C/D/I, UNABLE TO ASSESS SKIN D/T DRESSING. WILL MONITOR. PILLOW PLACED UNDER LEFT SIDE, pt ENCOURAGED TO CHANGE POSITIONS WHEN AWAKE, pt VERBALIZED UNDERSTANDING. ALLEVYN TO LEFT HEEL INTACT, SMALL AMOUNT YELLOW SHADOWING NOTED. WILL MONITOR. +2 EDEMA TO BLE, ELEVATED WITH PILLOWS, BILATERAL PEDAL PULSES OBTAINED VIA DOPPLER. NO FURTHER NEEDS, CALL LIGHT IN REACH.
--- NOTE | 2020-10-07 23:45 | NUR ---
IN TO CHECK UP PT AFTER USING THE URINAL, PT STILL C/O HEARTBURN, RN INFORMED, OPERATOR AND THIS DOCUMENT CONTROL COORDINATOR BOOSTED IN BED, NO FURTHER NEEDS AT THIS TIME
--- NOTE | 2020-10-08 00:18 | NUR ---
PRN MAALOX GIVEN PER pt REQUEST FOR HEARTBURN/INDIGESTION. HOB RAISED FOR COMFORT, NO FURTHER NEEDS. CALL LIGHT IN REACH.
--- NOTE | 2020-10-08 01:04 | NUR ---
pt ASSISTED USING THE URINAL, 150MLS OUTPUT NOTED. pt ALSO REPORTS PRN MAALOX IMPROVED HEARTBURN, DESCRIBES TOLERABLE. WILL MONITOR, NO FURTHER NEEDS. CALL LIGHT IN REACH.
--- NOTE | 2020-10-08 02:15 | NUR ---
ASSESSMENT COMPLETE, NO NEW CHANGES OR CONCERNS. pt AWAKE, REPORTS UNABLE TO FALL ASLEEP, HEART BURN REMAIN TOLERABLE. HOB REMAINS ELEVATED. NO CHANGES TO RUE PICC LINE, DRESSING REMAINS C/D/I. NO PAIN OR NAUSEA VERBALIZED. pt ABLE TO REPOSITION SELF IN BED, CONTINUES TO ENCOURAGE pt TO REPOSITION WHEN AWAKE, pt VERBALIZES UNDERSTANDING. PILLOWS PLACED IUNDER RIGHT HIP FOR COMFORT. BLE REMAIN ELEVATED. NO FURTHER NEEDS, CALL LIGHT IN REACH.
--- NOTE | 2020-10-08 03:00 | NUR ---
CALL LIGHT ANSWERED, pt WISHES TO CALL . THIS RN IN ROOM TO FURTHER ASSESS. pt IN BED, AWAKE AND STATES, "I THINK I'M REACHING THE END". THERAPEUTIC COMMUNICATION PROVIDED AND THIS RN AND RELAY TESTER BRANDON IN ROOM TO FURTHER GATHER INFORMATION. VSS, BP 115/76, MAP OF 84. HR 67, IRREGULAR. LUNG SOUNDS CLEAR, RR 20. 96% ON RA.TEMP 97.5. ACCUCHECK WNL, RESULT IN 120'S. pt REPORTS FEELING "FUZZY" AND STATES, "I JUST WOKE UP AND DIDN'T KNOW WHERE I WAS AT". THIS RN REMAINED WITH pt AND PROVIDED IN DEPTH REASSURANCE AND THERAPEUTIC COMMUNICATION. pt ASKED IF HE WOULD STILL LIKE TO CALL , pt DECLINED AT THIS TIME. pt BOOSTED IN BED, HOB ELEVATED, pt APPEARS MORE RELAXED AT THIS TIME. NO DISTRESS NOTED. WILL CONTINUE TO MONITOR. CALL LIGHT IN REACH.
--- NOTE | 2020-10-08 03:44 | NUR ---
ROUNDED ON pt, pt REMAINS AWAKE AND RESTING IN BED. A/O TO SELF, PLACE, DATE. REORIENTED TO EVENTS LEADING TO HOSPITALIZATION. pt APPEARS MORE RELAXED AT THIS TIME, pt STATES, "I THINK I HAD A PANIC ATTACK AND WAS JUST REALLY DISORIENTED". THERAPEUTIC COMMUNICATION AGAIN PROVIDED, WILL MONITOR. URINAL EMPTIED, NO FURTHER NEEDS, CALL LIGHT IN REACH.
--- NOTE | 2020-10-08 05:31 | NUR ---
LAB DRAW COLLECTED AT THIS TIME, PICC LINE FLUSHED WITH 20MLS NORMAL SALINE AND HEP LOCKED PER POLICY, SEE EMAR. DRESSING C/D/I. NO FURTHER NEEDS VERBALIZED AT THIS TIME, CALL LIGHT IN REACH.
--- NOTE | 2020-10-08 06:09 | NUR ---
PT'S DRESSING ON L ANKLE WAS COMING OFF, REPLACED ALLEYVN AFTER CLEANSING WITH WOUND CLEANSER. ISOSORB AND ALLEVYN IN PLACE. PT DENIES FURTHER NEEDS. CALL LIGHT IS CLOSE.
--- NOTE | 2020-10-08 06:41 | NUR ---
KERWIN ARRIVED TO FLOOR, UPDATE PROVIDED AND QUESTIONS ANSWERED REGARDING NIGHT.
--- NOTE | 2020-10-08 06:44 | NUR ---
pt SLEPT VERY LITTLE THIS SHIFT, VSS. X1 EPISODE OF DISORIENTATION NOTED THIS SHIFT, RESOLVED WITH THERAPEUTIC COMMUNICATION, SEE RN NOTE FOR DETAILS. 1PA WITH FWWRON TO COCCYX C/D/I. NEW ALLEVYN PLACED THIS SHIFT TO LEFT HEEL. NO PAIN AND NAUSEA VERBALIZED THIS SHIFT.
--- NOTE | 2020-10-08 07:05 | NUR ---
BEDSIDE HANDOFF REPORT RECEIVED FROM BOILER COVERER HELPER RN. PT SITTIN MARISOL EDGE OF BED, TALKING WITH , PT REPORT OF FEELING SOB, DISCUSSED NEB THIS AM. PT DENIES OTHER NEEDS AT THIS TIME.
--- NOTE | 2020-10-08 10:00 | NUR ---
SPOKE WITH DR MCINTYRE WHO STATES HE DISCUSSED TRANSITIONAL CARE OPTION WITH PATIENT AND . SPOKE BRIEFLY WITH PATIENT AND IN ROOM. TRANSITIONAL CARE BROCHURE GIVEN. OT IN TO SEE PATIENT. WILL RETURN LATER.
--- NOTE | 2020-10-08 10:30 | NUR ---
PT SITTING ON EGDE OF BED, WORKING WITH OT. PT STATES BREATHING IMPROVED AFTER NEB THIS AM. LUNG SOUNDS CLEAR, ON ROOM AIR. PT TOLERATED BREAKFAST, BOWEL TONES ACTIVE. PICC LINE HEP LOCKED. PT REPORT OF NUMBNESS IN ALL EXTREMITIES, STATES HE HAS IT ALL THE TIME. LOWER LEGS WITH TRACE EDEMA, 2+ EDEMA IN FEET, PULSES FAINT, JUAN SKIN IN LOWER EXTREMITIES. PT DENIES OTHER NEEDS AT THIS TIME.
--- NOTE | 2020-10-08 11:45 | NUR ---
DISCUSSED WITH DR. MCINTYRE THAT PT IS VOIDING SMALL FREQUENT AMOUNTS AND BLADDER SCAN FOR OVER 400ML AFTER VOIDING LAST, DR. MACE OK LONG HE IS VOIDING CONTINUE TO MONITOR.
--- NOTE | 2020-10-08 12:30 | NUR ---
PT GIVEN 1 UNIT SS INSULIN FOR BLOOD GLUCOSE 153. PT DID NOT EAT SANDWICH, ASSISTED TO ORDER CREAM OF MUSHROOM SOUP. PT DENIES OTHER NEEDS AT THIS TIME.
--- NOTE | 2020-10-08 13:45 | NUR ---
PATIENT AT SIDE OF BED, IN ROOM. VITALS AND I&OS CHARTE. ROOM TIDIED, WARM WIPES AND CLEAN GOWN PROVIDED FOR PERSONAL USE.
--- NOTE | 2020-10-08 14:45 | NUR ---
AFTERNOON ASSESSMENT COMPLETED. PT WITH INCREASED SWELLING IN BLE AFTER FLUID BOLUS, WILL CONTINUE TO MONITOR. PT DOES NOT REPORT INCREASED SOB, LUNG SOUNDS REMAIN CLEAR. WILL CONTINUE TO MONITOR.
--- NOTE | 2020-10-08 18:06 | NUR ---
PT WITH INCREASED LEG EDEMA AFTER FLUID BOLUS. DISCUSSED WITH DR. MCINTYRE, ORDER TO BLADDER SCAN AND STRAIGHT CATH IF GREATER THAN 500ML. BLADDER SCAN FOR 375 ML.
--- NOTE | 2020-10-08 18:55 | NUR ---
SHIFT REPORT RECEIVED FROM DAYSHIFT DADA KAMARA AT BEDSIDE. pt RESTING QUIETLY IN BED, WITH EYES CLOSED. RR EVEN AND UNLABORED. NO DISTRESS NOTED, IN ROOM. URINAL EMPTIED FOR 75MLS. CALL LIGHT IN REACH.
--- NOTE | 2020-10-08 22:15 | NUR ---
IN TO GET VITALS, RN WITH BS CHECK, FIXED PTs BED LINENS, 2PA FWW PIVOT BACK TO BED, NO FURTHER NEEDS
--- NOTE | 2020-10-08 22:30 | NUR ---
ASSESSMENT COMPLETE, SCHEDULED MEDS GIVEN (SEE EMAR). pt FULLY ORIENTED AT THIS TIME, VSS. PICC TO RUE DRESSING C/D/I, HEPARIN LOCK HELD pt WAS RECENTLY HEP LOCKED ON DAYSHIFT. DENIES PAIN AND NAUSEA, BOWEL TONES ACTIVE. DENIES NEED TO VOID. BLE ELEVATED WITH PILLOWS. UNABLE TO ASSESS SKIN TO COCCYX AND LEFT HEEL D/T CURRENT DRESSINGS. NO SHADOWING OR DRAINAGE NOTED, WILL MONITOR FOR CHANGES. NO FURTHER NEEDS, CALL LIGHT IN REACH.
--- NOTE | 2020-10-08 23:45 | NUR ---
pt voided 100mls into urinal
--- NOTE | 2020-10-09 00:58 | NUR ---
pt provided sputum in sample cup for the doctor to look at, no further needs
--- NOTE | 2020-10-09 01:27 | NUR ---
CALL TIMOTHY ANSWERED, pt REPORTS NEED TO VOID. URINAL PROVIDEDD, 125MLS OUTPUT NOTED. pt REPORTS FEELING SOB, NO DISTRESS. pt REPOSITIONED IN BED WITH HELP FROM DOUBLE CUT OFF SAW OPERATOR MORALES, HOB ELEVATED, pt RECENTLY GIVEN BREATHING TX AT MIDNIGHT. 96% ON RA, RR 18-19. FAINT EXP WHEEZES TO RIGHT UPPER LOBE. AFTER INTERVENTIONS, pt THINKS HE IS FEELING BETTER. WILL CONTINUE TO MONITOR, CALL LIGHT IN REACH.
--- NOTE | 2020-10-09 05:39 | NUR ---
ASSESSMENT COMPLETE, NO NEW CHANGES OR CONCERNS. LAB DRAW COMPLETE AND SENT TO LAB. PICC DRESSING C/D/I, FLUSHED WITH 20MLS NORMAL SALINE AND 50UNITS HEPARIN. pt RESTING IN CHAIR, REPORTS SOME DISCOMFORT IN LEFT HEEL AND BUTTOCKS, BUT DENIES NEED FOR PAIN MEDICATION. WILL MONITOR, BLE ELEVATED FOR COMFORT. pt RECENTLY ATTEMPTED TO VOID, UNSUCCESSFUL. BLADDER SCANNED, RESULT OF 354. WILL CONTINUE TO MONITOR. CALL LIGHT IN REACH.
--- NOTE | 2020-10-09 05:45 | NUR ---
IN TO GET VITALS, PT UP TO THE CHAIR, FRESH ICE WATER, NO FURTHER NEEDS,
--- NOTE | 2020-10-09 05:50 | NUR ---
IN TO ASST PT WITH URINAL, PT 1PA PIVOT WITH FWW BACK TO THE EDGE OF BED TO ATTEMPT VOIDING, PT FELT SOB, CAME TO GET THE RN
--- NOTE | 2020-10-09 05:58 | NUR ---
pt ATTEMPTING TO VOID IN BED, REPORTS SOME SOB. pt BOOSTED IN BED, STATES, "OH THAT'S BETTER". NO FURTHER NEEDS, CALL LIGHT IN REACH.
--- NOTE | 2020-10-09 06:12 | NUR ---
urinal emptied for 150mls, no further needs. PT apears comfortable, rr even and unlabored. call light in reach.
--- NOTE | 2020-10-09 07:10 | NUR ---
BEDSIDE HANDOFF REPORT RECEIVED FROM WEATHER FORCASTER RN. PT RESTING INBED, AT BEDSIDE.
--- NOTE | 2020-10-09 07:20 | NUR ---
SPOKE TO MANDEEP FROM PHARMACY REGARDING TIMELINE TO WAIT BETWEEN MAALOX AND VIBRAMYCIN. PER MANDEEP, WAIT TO 2HRS. MANDEEP TO PUT IN ADMINISTRATION DETAIL IN EMAR.
--- NOTE | 2020-10-09 09:00 | NUR ---
PT SITTING ON EDGE OF BED, TALKING WITH . PT ON ROOM AIR, LUNG SOUND DIMINISHED BUT CLEAR, HAS NOT HAD ANY SPUTUM THIS AM, DENIES FEELING SOB. PT TOLERATED BREAKFAST, GOOD APPETITE, BOWEL TONES ACTIVE. PT WITH SWELLING IN BLE, JUAN SKIN COLOR. PICC LINE HEP LOCKED, WITH BLOOD RETURN. PT DISCUSSED PLAN OF CARE, PT WOULD LIKE TO SHOWER, WILL COORDINATE WITH P.T. TO BUNDLE ACTIVITY AND SHOWER. PT DENIES OTHER NEEDS AT THIS TIME.
--- NOTE | 2020-10-09 10:30 | NUR ---
PT DISCHARGED TO SWING BED.
== END 2020-10-09 10:05 | disposition swing bed (61) | DRG 603 ==
LOC: ED 04:33 → MS 04:34
PROVIDERS: ADMIT Internal Medicine; ATTEND Internal Medicine
DX: L03.116 Cellulitis of left lower limb (principal); N10 Acute pyelonephritis; N17.9 Acute kidney failure, unspecified; L03.115 Cellulitis of right lower limb; T36.1X5A Adverse effect of cephalosporins and other beta-lactam antibiotics, initial encounter; Z20.822 Contact with and (suspected) exposure to COVID-19; E11.22 Type 2 diabetes mellitus with diabetic chronic kidney disease; N18.9 Chronic kidney disease, unspecified; J44.9 Chronic obstructive pulmonary disease, unspecified; E11.51 Type 2 diabetes mellitus with diabetic peripheral angiopathy without gangrene; S91.302A Unspecified open wound, left foot, initial encounter; I25.10 Atherosclerotic heart disease of native coronary artery without angina pectoris; I48.0 Paroxysmal atrial fibrillation; Z87.891 Personal history of nicotine dependence; Z88.8 Allergy status to other drugs, medicaments and biological substances; Z88.1 Allergy status to other antibiotic agents; Z79.899 Other long term (current) drug therapy; Z79.52 Long term (current) use of systemic steroids
CPT/HCPCS: 51798; 70450; 71045; 71046; 76770; 80048; 80053; 80162; 80202; 81001; 82570; 83605; 83735; 83880; 84300; 84484; 85025; 85610; 85651; 86140; 87040; 87077; 87088; 87106; 87186; 89051; 93005; 93010; 94640; 94760; 97116; 97162; 97166; 97530; 97535; 99285-25; C9803; J0692; J1815; J1940; J3370; J7030; J7060; J7121; J7512; U0003

== ENCOUNTER 2020-10-09 10:05 | Inpatient (IN) | payer MEDICARE, OTHER ==
[~2020-10-09] VITALS: Ht 170.2 cm; Wt 55.5 kg
[~2020-10-09 10:05] MED LIST changes: -TORSEMIDE10 MG PO; +TORSEMIDE20 MG PO
--- NOTE | 2020-10-09 11:20 | NUR ---
BED BATH COMPLETED. LINEN CHANGED. NANCIE CARE DONE. PATIENT BACK TO BED. STATED HES OUT OF BREATH O2 CHECKED @96. RESP 20 RN NOTIOFIED. PATIENT RESTING UNTIL LUNCH
--- NOTE | 2020-10-09 11:30 | NUR ---
PT DONE WITH BED BATH WITH FITNESS SUPERVISOR, NOW RESTING IN BED. WOUND ON BUTTOCK ASSESS, 2 SMALL OPEN WOUNDS APPROXIMATELY 0.5CM IN DIAMETER EACH ON LEFT BUTTOCK, BLANCHABLE REDNESS PERIWOUND. SITE CLEANSED ALLYVN APPLIED. PT NOW RESTING COMFORTABLY ON RIGHT SIDED TILT. PT DENIES OTHER NEEDS AT THIS TIME.
--- NOTE | 2020-10-09 12:36 | NUR ---
PT GIVEN 1 UNITS SS INSULIN FOR BLOOD GLUCOE 152. PT ASSISTED TO SIT AT EDGE OF BED TO EAT LUNCH. PT DENIES OTHER NEEDS AT THIS TIME.
--- NOTE | 2020-10-09 14:27 | NUR ---
URINAL EMOTIED. PATIENT RESTING IN BED. STATETES NOTHING ELSE NEEDED AT THIS TIME.
--- NOTE | 2020-10-09 14:50 | NUR ---
AFTERNOON ASSESSMENT COMPLETED. LEGS MORE SWOLLEN THIS AFTERNOON, PT HAS BEEN SITTING AT EDGE OF BED. PT AMBULATED WITH NURSE FROM BED TO COUCH AND BACK, REVIEWED CALLING FOR ASSISTANCE FOR SAFETY. PT DENIES OTHER NEEDS AT THIS TIME.
--- NOTE | 2020-10-09 16:48 | NUR ---
CHECKED ON PATIENT PATIENT STATED HE DID NOT NEED ANYTHING AT THIS TIME.
--- NOTE | 2020-10-09 17:46 | NUR ---
PT TRANSITIONED TO SWING BED TODAY. PT REMAINS ON ROOM AIR, LUNG SOUNDS CLEAR AND DIMINISHED. EDEMA IN BLE, SLIGHTLY WORSE THIS AFTERNOON, PT HAS BEEN SITTING UP MORE THIS AFTERNOON. PT BLOOD GLUCOSE WELL CONTROLLED, RECEIVED 1 UNIT INSULIN AT LUNCH AND DINNER. WORKED WITH P.T. AND IS EASILY FATIGUED WITH ACTIVITY.
--- NOTE | 2020-10-09 18:05 | NUR ---
PATIENTS INTAKE AND OUTPUT CHARTED. EMPTIED URINAL. REPOSITIONED PATIENT IN BED. NOTHING ELSE NEEDED.
--- NOTE | 2020-10-09 19:10 | NUR ---
RECEIVED REPORT FROM DADA KAMARA. pt RESTING IN BED. NO REQUESTS AT THIS TIME. CALL LIGHT WITHIN REACH. WHITEBOARD UPDATED. BED ALARM ON.
--- NOTE | 2020-10-09 21:35 | NUR ---
IN TO DO ASSESSMENT. pt RESTING IN BED. ASSESSMENT DONE. ALLEVYN ON LEFT HEEL INTACT. pt SAT AT SIDE OF BED TO ATTEMPT TO VOID, SOB AFTER MOVING. pt REPORTED THIS IS "NORMAL" FOR HIM. VITALS DONE. MEDICATIONS GIVEN (SEE MAR). pt WILL CALL WHEN HE NEEDS TO VOID. CALL LIGHT WITHIN REACH.
--- NOTE | 2020-10-09 23:00 | NUR ---
CALL LIGHT ON. pt VOIDED.
--- NOTE | 2020-10-10 00:10 | NUR ---
ROUNDING PATIENT SEEN SITTING BY THE BED. BED ALARM WAS STILL ON. ASSISTED PATIENT TO USE THE URINAL. PATIENT IS BACK LAYING IN BED. BED ALARM ON.
--- NOTE | 2020-10-10 01:25 | NUR ---
BED ALARMING. PATIENT WAS UP FROM BED DANGLING. PATIENT STATED "I DONT KNOW WHAT HAPPENED I JUST REACH MY WATER".PATIENT HELPED BOOST UP IN BED WITH THE USE OF THE TRAPEZE. BED ALARM ON. CALL LIGHT IN REACH.
--- NOTE | 2020-10-10 02:11 | NUR ---
CALL LIGHT ANSWERED. PATIENT NEEDED TO USE THE URINAL.
--- NOTE | 2020-10-10 03:36 | NUR ---
patient called overnight houseperson system to use bsc. sba to bsc and told to call when finished. patient did not wipe himself but stood fine while this tele marketing executive assisted with cleaning. 1PA back to bed. patient sat on edge of bed to catch breath. patient had 1/2 cup soft stool in BSC. instucted to put chin up when ambulating. once laid back down pateint was given call light and instucted to call if anything futher was needed.
--- NOTE | 2020-10-10 05:40 | NUR ---
IN TO DRAW LAB. pt REQUESTED TO GET UP TO BSC. 1PA. CALL LIGHT WITHIN REACH.
--- NOTE | 2020-10-10 05:56 | NUR ---
ASSISTED PATIENT FROM BEDSIDE COMMODE BACK TO BED. CALL LIGHT IN REACH. BED ALARM ON.
--- NOTE | 2020-10-10 09:15 | NUR ---
REPORT RECEIVED FROM NIGHT RN AND PT. CARE RESUMED. PT. IS ALERT AND ORIENTED. PRESENT IN ROOM. LUNGS CLEAR. PICC LINE FLUSHES AND HAS BLOOD RETURN. +2 PITTING EDEMA PRESENT BLE. ALLEVYN DRESSING INTACT ON LEFT HEEL. BLE ARE JUAN AND PEELING. PT. STATES HE HAS TOLERABLE PAIN IN HIS LEFT HEEL. BLOOD GLUCOSE WAS 123 AND NO INSULIN ADMIN. DISCUSSED POC AND SAFETY. PT. LEFT RESTING IN BED WITH LEGS ELEVATED.
--- NOTE | 2020-10-10 14:59 | NUR ---
PATIENTS I&O'S CHARTED. GIVEN WARM BLANKET AND REFRESHED WATER. NOTHING ELSE NEEDED AT THIS TIME
--- NOTE | 2020-10-10 16:36 | NUR ---
LT. HEEL DRESSING REMOVED AND CLEANSED WITH WOUND PICKING MACHINE OPERATOR. LEFT OPEN TO AIR DR. CROUCH HERE TO SEE PT.
--- NOTE | 2020-10-10 17:55 | NUR ---
PT'S. BLOOD GLUCOSE WAS 61 AT LUNCH AND RECEIVED 3 UNITS OF HUMALOG. AT DINNER BG WAS 61. GIVEN CLEAR ENSURE AND CRACKERS. CHECK 15 MIN. LATER AND BG WAS 91. MD NOTIFIED AND ORDERED SLIDING SCALE INSULIN DC'D.
--- NOTE | 2020-10-10 18:06 | NUR ---
PATIENT ATE MOST OF HIS DINNER. HASNT VOIDED SINCE 1500. 780ML INPUT. FRESHENED WATER. NOTHING ELSE NEEDED AT THIS TIME.
--- NOTE | 2020-10-10 18:31 | NUR ---
PT. HERE FOR DIABETIC FOOT ULCER. DR. CROUCH REDRESSED TODAY WITH MEDIHONEY, COLLAGEN, DRESSING, GAUZE AND COBAND. SLIDING HUMALOG DC'D. PICC FLUSHES WELL AND RETURNS BLOOD. HEP. LOCK. PT. AMBULATES WITH FWW AND 1PA. +2 PITTING EDEMA PRESENT BLE WELL PEELING. PT. ALERT AND ORIENTED. DUE TO VOID.
--- NOTE | 2020-10-10 19:20 | NUR ---
REPORT RECEIVED FROM DAY SHIFT RN. PT SITTING UP IN BED ALERT AND ORIENTED. FAMILY IN ROOM. DENIES NEEDS AT THIS TIME. WHITE BOARD UPDATED. CALL LIGHT IN REACH. RT IN TO DO SCHEDULED BREATHING TX.
--- NOTE | 2020-10-10 20:15 | NUR ---
CALL LIGHT ANSWERED. PATIENT IS READY TO BED. ASSISTED PATIENT FROM CHAIR TO BED. BLOOD SUGAR CHECK DONE. V/S AND I&O'S TAKEN AND RECORDED. WARM BLANKET PROVIDED. WENT OUT TO HOME. PRIMARY RN WAS WITH PATIENT. CALL LIGHT WITHIN REACH.
--- NOTE | 2020-10-10 20:30 | NUR ---
EVENING ASSESSMENT COMPLETE. SCHEDULED MEDS ADMINISTERED PER EMAR. PT DENIES PAIN OR NAUSEA. DENIES SOB OR CP. BLE ELEDEMA NOTED, LEGS ELEVATED ON PILLOWS. DRESSING TO LEFT ANKLE CDI. PICC LINE FLUSHED PER PROTOCOL. BRISK BLOOD RETURN NOTED. DRESSING CDI. PT DENIES QUESTIONS OR CONCERNS. CALL LIGHT IN REACH. BED ALARM FOR SAFETY.
--- NOTE | 2020-10-10 21:34 | NUR ---
PATIENT USED THE CALL LIGHT. ASSISTED USING URINAL. PATIENT GOT UP AND WALKED AROUND THE BED X1. PATIENT IS BACK IN BED. PATIENT C/O CAN GET TO SLEEP, GETTING UP AND WALK PATIENT THOUGHT MIGHT HELP HIM GET SOME SLEEP. BED ALARM ON. CAll light in reach.
--- NOTE | 2020-10-10 23:37 | NUR ---
PT RESTING IN BED WITH EYES CLOSED, NAD.
--- NOTE | 2020-10-11 01:00 | NUR ---
PATIENT CALLED NEED TO USE THE URINAL. PATIENT ABLE TO VOID 150CC. PATIENT REPOSITIONED/BOOSTED UP IN BED. BED ALARM ON. CALL LIGHT WITHIN REACH.
--- NOTE | 2020-10-11 04:15 | NUR ---
PT AWAKE DURING ROUNDING. DENIES NEEDS AT THIS TIME. CALL LIGHT IN REACH. BED ALARM ON.
--- NOTE | 2020-10-11 05:46 | NUR ---
CALL LIGHT ANSWERED. PT REPORTS FEELING SOB AFTER TRYING TO REMOVE A PILLOW FROM UNDER HIS HEAD. ASSISTED PT TO REPOSITION. HOB ELEVATED. Sp02 97% ON RA. HR 86. PERSONAL FAN PROVIDED. MORNING LABS DRAWN FROM PICC LINE PER PROTOCOL. PT RESTING WITH EYES CLOSED AT THE TIME THIS RN LEFT ROOM. RESPIRATIONS EVEN AND UNLABORED.
--- NOTE | 2020-10-11 06:48 | NUR ---
BLADDER SCANNED SHOWS 203ML. PRIMARY RN RONNIE NOTIFIED.
--- NOTE | 2020-10-11 08:01 | NUR ---
REPORT RECEIVED. PT IN BED WITH WIFEAT BEDSIDE. MINDY NEEDS. CALL LIGHT IN REACH.
--- NOTE | 2020-10-11 10:13 | NUR ---
bed linens changed. am cares done. no other needs at this time
--- NOTE | 2020-10-11 11:32 | NUR ---
PATIENT IS RESTING IN BED WATCHING TV.NOTHING NEEDED AT THIS TIME
--- NOTE | 2020-10-11 14:40 | NUR ---
ROUNDED ON PT. RT AT BEDSIDE. PT SITTING AT EBGE OF BED. JUST COMPLETED SHOWER.
--- NOTE | 2020-10-11 14:48 | NUR ---
senior qualitative researcher assited pt to take a shower.
--- NOTE | 2020-10-11 15:10 | NUR ---
BOTH NARES SWABBED FOR COVID-19 WITHOUT COMPLICATION. SAMPLE TAKEN TO [facility] FOR RAPID TESTING.
--- NOTE | 2020-10-11 15:46 | NUR ---
PATIENT SITTING ON THE SIDE OF THE BED. WATCHING TV WHEN THIS PROJECT DRILLING ENGINEER DID ROUNDS
--- NOTE | 2020-10-11 18:22 | NUR ---
PATIENT IS CONCERNED HES NOT VOIDING ENOUGH. CHARGE NURSE AWARE OF PATIENTS CONCERN. PATIENT RESTING CHARTED I&O'S. NOTHING FURTHER AT THIS TIME NEEDED.
--- NOTE | 2020-10-11 19:25 | NUR ---
REPORT RECEIVED FROM DAY SHIFT RN. PT LYING IN BED ALERT AND ORIENTED. DENIES NEEDS AT THIS TIME. WHITE BOARD UPDATED. CALL LIGHT IN REACH.
--- NOTE | 2020-10-11 22:31 | NUR ---
EVENING ASSESSMENT COMPLETE. SCHEDULED MEDS ADMINISTERED PER EMAR. PT DENIES PAIN OR NAUSEA. REPORTS BREATHING IS "OK". ASSISTED TO REPOSITION IN BED. HOB ELEVATED. SpO2 94% ON RA. PICC LINE FLUSHED AND HEP LOCKED PER PROTOCOL. BRISK BLOOD RETURN NOTED. BLE EDEMA NOTED, ELEVATED ON PILLOWS. DRESSING TO LEFT HEEL CDI. PT DENIES QUESTIONS OR CONCERNS AT THIS TIME. CALL LIGHT IN REACH.
--- NOTE | 2020-10-12 00:27 | NUR ---
PT RESTING IN BED WITH EYES CLOSED, NAD.
--- NOTE | 2020-10-12 01:00 | NUR ---
CALL LIGHT ANSWERED. ASSISTED TO USE THE URINAL. PATIENT STATED NEED HELP TO PUT THE NIGHT GOWN BACK ON. THIS CLOTH TESTER AND PRIMARY RN RONNIE REPOSITIONED THE PATIENT. NO OTHER NEEDS AT THIS TIME. CALL LIGHT WITHIN REACH.
--- NOTE | 2020-10-12 03:13 | NUR ---
PT RESTING ON RIGHT SIDE WITH EYES CLOSED. RESPIRATIONS EVEN AND UNLABORED. CALL LIGHT IN REACH.
--- NOTE | 2020-10-12 05:08 | NUR ---
ASSISTED PATIENT FROM BEDSIDE COMMODE BACK TO BED. PRIMARY RN WAS WITH PATIENT.
--- NOTE | 2020-10-12 05:10 | NUR ---
CALL LIGHT ANSWERED. PT UP TO BSC WITH 1PA AND FWW TO HAVE SMALL SOFT BM AND VOID. GAIT STEADY. INCREASED SOB WITH ACTIVITY. STAFF ASSIST WITH NANCIE CARE. BACK TO BED, AMADA FAIR. MORNING LABS DRAWN FROM PICC LINE PER PROTOCOL. NO FURTHER NEEDS AT THIS TIME. CALL LIGHT IN REACH.
--- NOTE | 2020-10-12 07:30 | NUR ---
REPORT RECIEVED. PT IN BED WITH HOB ELEVATED. AT BEDSIDE. CALL LIGHT IN REACH.
--- NOTE | 2020-10-12 08:59 | NUR ---
ASSESSMENT COMPLETED. PT SAT UP TO SIDE OF BED FOR BREAKFAST. LUNGS DIM WITH SOME SCATTERED COARSE SOUNDS, RLL DIM. PT REPORTS SOB WITH ACTIVITY AND WITH LYING FLAT. NEW STANDING WEIGHT OBTAINED AND CHARTED. 2+ EDEMA IN BILAT LE. HEART SOUNDS IRREGULAR. REPORTING PAIN 3/10 IN RIGHT FOOT. DRESSING TO FOOT C/D/I. ATE 50% OF BREAKFAST. TYLENOL ADMISNTERED.
--- NOTE | 2020-10-12 09:40 | NUR ---
OCCUPATIONAL THERAPY WORKING WITH PT
--- NOTE | 2020-10-12 10:09 | NUR ---
PATIENT RESTING WHEN THIS LIFE SKILLS COORDINATOR VOLUNTEER CAME IN. EMPTIED URINAL CHARTED I&O'S. NOTHING ELSE NEEDED AT THIS TIME.
--- NOTE | 2020-10-12 11:00 | NUR ---
Spoke with pt and his . He states he is doing well. Working with OT and is struggeling to get his clothing on. Requires quit a lot of assist.
--- NOTE | 2020-10-12 12:17 | NUR ---
PT LYING IN BED WITH HOB ELEVATED. PT WITH SOB AFTER TRYING TO PUT PANTS ON. RECOVERED AFTER SOME TIME. REPORTS HIS SOB HAS GOTTEN WORSE SINCES ADMISSION. ENCOURAGED PT TO REST. AT BEDSIDE. DENIES NEEDS.
--- NOTE | 2020-10-12 13:21 | NUR ---
PATIENT LAYING IN BED WATCHING TV. I&O'S DOCUMENTED. EMPTIED URINAL. PATIENTS STATES NOTHING ELSE NEEDED AT THIS TIMNE. TEMP WAS LOWERED IN PATIENTS ROOM
--- NOTE | 2020-10-12 15:30 | NUR ---
BROUGHT AND PROVIDED EDUCATION/TEACHBACK FOR INCENTIVE SPIROMETER. PT DID WELL. TALKED ABOUT DOING 10 BREATHS HOURLY. PT AGREEABLE.
--- NOTE | 2020-10-12 16:33 | NUR ---
PT U[ TO CHAIR WITH . WORKING ON INCENTIVE SPIROMETER.
--- NOTE | 2020-10-12 18:02 | NUR ---
PT AWAKE IN BED VISITING WITH FAMILY IN ROOM. CALL LIGHT WITHIN REACH. NO FURTHER NEEDS AT THIS TIME.
--- NOTE | 2020-10-12 19:18 | NUR ---
REPORT RECEIVED FROM DAY SHIFT RN. PT LYING IN BED ALERT AND ORIENTED. DENIES NEEDS AT THIS TIME. WHITE BOARD UPDATED. CALL LIGHT IN REACH.
--- NOTE | 2020-10-12 20:00 | NUR ---
1 PA TO BEDSIDE COMMODE USING WALKER. PATIENT VOIDED AND HAD SMALL BOWEL MOVEMENT. PATIENT IS BACK IN BED. V/S AND I&O DONE. RT ALEXANDRE AND PRIMARY RN RONNIE WERE IN THE ROOM.
--- NOTE | 2020-10-12 20:23 | NUR ---
EVENING ASSESSMENT COMPLETE. SCHEDULED MEDS ADMINISTERED PER EMAR. PT DENIES PAIN OR NAUSEA. BLE EDEMA NOTED, ELEVATED ON PILLOWS. DRESSING TO LEFT HEEL INTACT. RESPIRATIONS EVEN. SpO2 94% ON RA. PICC LINE HEP LOCKED PER PROTOCOL. BRISK BLOOD RETURN NOTED. DENIES FURTHER NEEDS. RT IN TO DO BREATHING TX. CALL LIGHT IN REACH.
--- NOTE | 2020-10-12 22:37 | NUR ---
CALL LIGHT ON. PATIENT NEEDS THE URINAL. NO OTHER NEED AT THIS TIME.
--- NOTE | 2020-10-12 23:05 | NUR ---
PT RESTING IN BED WITH EYES CLOSED, NAD.
--- NOTE | 2020-10-13 00:53 | NUR ---
CALL LIGHT ANSWERED. PT REPORTS SOB AND WOULD LIKE PRN NEB TX. IN TO REPOSITION PT. HOB ELEVATED. Sp02 94% ON RA. RR 20. HR 80'S. PT REPORTS REPOSITIONING IMPROVED BREATHING. RT NOTIFIED PT WOULD LIKE NEB TX.
--- NOTE | 2020-10-13 02:31 | NUR ---
PT RESTING IN BED WITH EYES CLOSED LYING ON RIGHT SIDE. RESPIRATIONS EVEN. NO APPARENT DISTRESS. CALL LIGHT IN REACH.
--- NOTE | 2020-10-13 03:47 | NUR ---
Pt spilt urinal, linens changed, new gown. Repositioned pt to center of bed. Pillow support under right hip and bilateral arms. no further assistnace needed at this time.
--- NOTE | 2020-10-13 05:11 | NUR ---
PT OOB, UP TOP CHAIR, 1PA WITH FWW. PROPED WITH PILLOWS IN CHAIR. IOS DONE, VS DONE. CALL LIGHT IN REACH NO FURTHER ASSISTANCE AT THIS TIME.
--- NOTE | 2020-10-13 07:28 | NUR ---
REPORT RECIEVED FROM STAPLING MACHINE OPERATOR RONNIE GARLAND
--- NOTE | 2020-10-13 07:52 | NUR ---
MORNING ASSESSMENT DONE. PATIENT DENIES ANY PAIN OR NEEDS. LEFT FOOT DRESSING INTACT, DR. CROUCH SCHEDULED TO CHANGE DRESSING TODAY.
--- NOTE | 2020-10-13 09:29 | NUR ---
PATIENT IS RESTING ON THE EDGE OF HIS BED, ROTATES HIMSELF OFF HIS SACRAL AREA, DENIES OTHER NEEDS.
--- NOTE | 2020-10-13 11:05 | NUR ---
PATIENT AWAKE IN CHAIR, IN ROOM. VITALS AND I&OS CHARTED. NO OUTPUT FROM PATIENT YET THIS MORNING, RN NOTIFIED. FRESH ICE WATER AND WARM BLANKET PROVIDED. CALL LIGHT IN REACH
--- NOTE | 2020-10-13 11:23 | NUR ---
PATIENT WORKING WITH PHYSICAL THERAPY
--- NOTE | 2020-10-13 12:10 | NUR ---
PATIENT IS UP TO CHAIR, DENIES NEEDS.
--- NOTE | 2020-10-13 13:46 | NUR ---
PT ALERT, ORIENTED AND SUPPORTED BY HIS KERWIN. BOTH PLEASANT, EXPRESS UNDERSTANDING OF SB PROGRAM. PT IS TIRED OF HOSPITALS, ENCOURAGED THAT TO BE INCENTIVE TO WORK ON DC HOME. BOTH ACKNOWLEDGE-PT REQUESTED PRAYER, LEFT G.POST. WILL FOLLOW
--- NOTE | 2020-10-13 14:05 | NUR ---
No change in plan for discharge. Pt will dc to home with when TC rehab completed.
--- NOTE | 2020-10-13 14:14 | NUR ---
PATIENT IS SLEEPING WITH REGULAR RESPIRATIONS, SPOUSE IN ROOM.
--- NOTE | 2020-10-13 15:26 | NUR ---
PATIENT NOW IN TRANSITIONAL CARE FOR PT/OT. HIS FOOT WOUND IS HEALING. HIS IS VISITING. THEY BOTH JUST HAD SOME VANILLA PUDDING AND PATIENT IS SIPPING ON A DIET [employer]. HIS APPETITE IS FAIR - HE THINKS HE HASN'T BEEN HUNGRY LATELY BECAUSE HE HAS BEEN IN THE HOSPITAL. HE DOESN'T ALWAYS FINISH A MEAL BUT HE DOES EAT PROTEIN FOODS REGULARLY. ENCOURAGED HIM TO EAT A VARIETY OF FOODS TO GET ENOUGH CALORIES, PROTEIN, AND VITAMINS/MINERALS TO HELP HIM GET STRONGER AND FOR THE WOUND TO HEAL. HE SAID HE DOES NOT NEED SNACKS REGULARLY. I TOLD HIM ABOUT THE DIFFERENT SOUPS WE HAVE IN THE [place] DAILY FOR A LITTLE MORE VARIETY THAN WHAT THE PATIENT MENU OFFERS. HE HAS HAD A COUPLE OF DIFFERENT SOUPS ALREADY. CONTINUE 60 GM CONSISTENT CARB DIET.
--- NOTE | 2020-10-13 17:11 | NUR ---
PATIENT SITTING UP TO CHAIR FOR DINNER, EVENING MEDICATIONS GIVEN, PATIENT DENIES OTHER NEEDS.
--- NOTE | 2020-10-13 17:39 | NUR ---
PATIENT HAS DONE WELL TODAY, WORKED WITH PT AND OT. PATIENT HAS REQUIRED SLIGHT ASSISTANCE WITH GETTING OUT OF CHAIR, BUT AMBULATES AD CH[place]ED[place] ONCE UP. DR. CROUCH TO DO LEFT HEEL DRESSING, DRESSING IS CDI. DAILY COUMADIN DOSE HELD TODAY, PATIENT INR WAS 3.0 THIS MORNING. SPOUSE HAS REMAINED IN ROOM FOR THE ENTIRE DAY.
--- NOTE | 2020-10-13 18:32 | NUR ---
PATIENT SITTING AT SIDE OF BED BRUSHING HI TEETH. IN ROOM. VITALS AND I&OS CHARTED. BSC EMPTIED AND CLEANED. CALL LIGHT IN REACH
--- NOTE | 2020-10-13 19:30 | NUR ---
RECEIVED REPORT FROM DAY SHIFT RN. PATIENT IS RESTING IN BED WITH EYES CLOSED, RR 16. CALL LIGHT IN REACH.
--- NOTE | 2020-10-13 21:45 | NUR ---
PATIENT ASSESMENT COMPLETED. PATIENT IS UP SITTING ON THE EDGE OF THE BED. VITALS TAKEN AND RECORDED. INTAKE AND OUPUT RECORDED. PATIENT DENIES ANY PAIN. PATIENTS EVENING MEDICATIONS GIVEN PER ORDER. PATIENT PROVIDED WITH FRESH ICE WATER. NO FURTHER NEEDS NOTED. CALL LIGHT IN REACH.
--- NOTE | 2020-10-13 23:08 | NUR ---
ASSISTED PATIENT USED THE URINAL. PATIENT REPOSITIONED. HEAD OF THE BED ELEVATED. CALL LIGHT IN REACH.
--- NOTE | 2020-10-14 00:30 | NUR ---
PATIIENT IS RESTING IN BED WITH EYES CLOSED, RR 17. CALL LIGHT IN REACH.
--- NOTE | 2020-10-14 01:50 | NUR ---
PATIENT CALLED TO REQUEST NEB TX. PATIENT DENIES ANY SOB. RT IN ROOM TO ADMIN NEB TX. NO FURTHER NEEDS NOTED. CALL LIGHT IN REACH.
--- NOTE | 2020-10-14 02:18 | NUR ---
CALL LIGHT ON. pt ON BSC, SBA FWW BACK TO BED. CALL LIGHT WITHIN REACH. WARM BLANKETS PROVIDED. VOID AND SMALL FORMED STOOL NOTED.
--- NOTE | 2020-10-14 04:14 | NUR ---
PATIENT IS RESTING IN BED WITH EYES CLOSED, RR 16. CALL LIGHT IN REACH.
--- NOTE | 2020-10-14 05:32 | NUR ---
1PA TO BEDSIDE COMMODE. PATIENT IS BACK IN BED. CALL LIGHT IN REACH.
--- NOTE | 2020-10-14 08:20 | NUR ---
REPORT RECEIVED FROM NIGHT RN AND PT. CARE RESUMED. PT. UP TO EOB WITH PRESENT. STATED HE DRESSED HIMSELF THIS MORNING. ALERT AND ORIENTED. LUNGS DIM. IN RLL. LT. FOOT DRESSING CDI. BLE IS SCALING, JUAN WITH +2 PITTING EDEMA. DISCUSSED ELEVATING LEGS WHEN SEATED. PT. REPORTS PRODUCTIVE COUGH WITH GREEN, THICK SPUTUM. ENCOURAGED TO USE I.S. PICC FLUSHES AND RETURNS BLOOD. WILL HEP. LOCK AFTER BREAKFAST. DRESSING INTACT. PT. LEFT RESTING WITH CALL LIGHT IN REACH.
--- NOTE | 2020-10-14 10:54 | NUR ---
PT. PICC LINE HEP. LOCKED. WILL CHANGE DRESSING AFTER SHOWER. PT. ON EOB AND CLINICAL PHARMACY MANAGER PRESENT TO READY FOR SHOWER.
--- NOTE | 2020-10-14 14:30 | NUR ---
CALL TO DR. CROUCH'S OFFICE AND MESSAGE LEFT. PATIENT SHOWERED, LEFT HEEL DRESSING WET AND REMOVED. AWAITING DRESSING ORDERS OR FURTHER DIRECTIONS FROM DR. CROUCH.
--- NOTE | 2020-10-14 14:37 | NUR ---
PT. WAS IN GIVEN A SHOWER BY JESS AND DRESSING WAS WET. REMOVED WET DRESSING. CHARGE NURSE CONTACTED DR. CROUCH AND WAS ORDERED TO LEAVE DRESSING OFF UNTIL HE COULD CHANGE IT. DRESSING REMOVED AND OPENED TO AIR, ELEVATED.
--- NOTE | 2020-10-14 15:31 | NUR ---
IODASORB AND ALLEVYN PLACED ON LT. HEEL UNTIL DR. CROUCH CALLS BACK WITH WOUND CARE INSTRUCTIONS.
--- NOTE | 2020-10-14 16:02 | NUR ---
CALL FROM ELLE MCNEAL TO CONTINUE HIS PREVIOUS DRESSING OF: WOUND CLEANSER, MEDIHONEY, COLLAGEN, COVERED WITH SILVER BOARDER AQUACEL.
--- NOTE | 2020-10-14 16:38 | NUR ---
PT.'S FOOT CLEANED WITH WOUND SPRAY AND STERILE GAUZE, THEN DRESSED WITH MEDIHONEY, AMANDA, AQUACEL, KERLIX THEN COBAND, PER MD NOTES. PT. TOLERATED WELL.
--- NOTE | 2020-10-14 19:35 | NUR ---
RECEIVED REPORT FROM DAY SHIFT RN. PATIENT IS SITTING ON THE EDGE OF THE BED VISITING WITH HIS . PATIENT AND DENY ANY NEEDS. CALL LIGHT IN REACH.
--- NOTE | 2020-10-14 21:20 | NUR ---
PATIENT ASSESMENT COMPLETED. PATIENTS VITALS TAKEN AND RECORDED. INTAKE AND OUPUT RECORDED. PATIENTS EVENING MEDICATIONS GIVEN PER ORDER. PATIENT DENIES ANY PAIN. PATIENT IS ON RA. PATIENTS DRESSING IS C/D/I. PATIENT DENIES ANY FURTHER NEEDS. CALL LIGHT IN REACH.
--- NOTE | 2020-10-14 23:41 | NUR ---
PATIENT ASSISTED BACK INTO BED. PATIENT HAD STOOD AT BEDSIDE TO USE URINAL. PATIENT DENIES ANY FURTHER NEEDS. CALL LIGHT IN REACH.
--- NOTE | 2020-10-15 01:56 | NUR ---
PATIENT REPOSITIONED IN BED. PATIENT DENIES ANY FURTHER NEEDS. CALL LIGHT IN REACH.
--- NOTE | 2020-10-15 03:08 | NUR ---
PATIENT IS RESTING IN BED WITH EYES CLOSED, ON HIS RIGHT SIDE. RR 16. CALL LIGHT IN REACH.
--- NOTE | 2020-10-15 03:39 | NUR ---
PATIENT ASSISTED BACK TO BED AFTER USING THE COMMODE. PATIENT WAS ABLE TO VOID AND HAVE X1 SM BM. PATIENT IS BACK IN BED RESTING. PATIENT DENIES ANY FURTHER NEEDS. CALL LIGHT IN REACH.
--- NOTE | 2020-10-15 05:26 | NUR ---
PATIENT IS RESTING IN BED WITH EYES CLOSED, RR 17. CALL LIGHT IN REACH.
--- NOTE | 2020-10-15 06:40 | NUR ---
RT IN ROOM TO GIVE PRN NEB.
--- NOTE | 2020-10-15 09:01 | NUR ---
PATIENT UP IN CHAIR, IN ROOM. FACE AND HANDS WASHED. LINENS CHANGED, BOARD UPDATED, CALL LIGHTIN REACH
--- NOTE | 2020-10-15 09:45 | NUR ---
REPORT RECEIVED FROM NIGHT RN AND PT. CARE RESUMED. PT. REPORTS SORENESS IN MOUTH. TOUCH HAS WHITE PATCHINESS. WILL FOLLOW UP WITH MD. PT.'S URINE IS ALSO DARK AND CLOUDY. WILL CONTINUE TO MONITOR. LUNGS DIM. IN BASES. PT. HAS A PRODUCTIVE OCCASIONAL COUGH. EDEMA PRESENT BLE WITH SCALING AND RUDDINESS. LEFT FOOT DRESSING CDI. PT. HAS BEEN UP WITH WALKER AND SBA. PICC FLUSHES WELL AND RETURNS BLOOD. LABS DRAWN. PT. LEFT RESTING WITH AT BEDSIDE.
--- NOTE | 2020-10-15 11:34 | NUR ---
PATIENT UP IN CHAIR, IN ROOM. VITALS AND I&OS CHARTED. THIS ANCHOR TACK PULLER SHAVED PATIENTS FACE, EYEBROWS AND AROUND EARS WITH ELECTRIC SHAVER. NEW GOWN PRVIDED AND ON. WARM BATH WIPES PROVIDED FOR BEDBATH( ASSIST) PATIENT UP TO BSC, 3OO OUTPUT AND SMALL BM. R/T IN ROOM NOW. CALL LIGHT IN REACH
--- NOTE | 2020-10-15 11:40 | NUR ---
NO CHANGE IN PLAN FOR DC AT THIS TIME. CONT. TO PLAN FOR DC MID TO END OF NEXT WEEK.
--- NOTE | 2020-10-15 12:01 | NUR ---
PT SITTING IN CHAIR WITH KERWIN BESIDE HIM. PT ADMITTED THAT HE WASN'T GAINING YET, BUT DIDN'T FEEL HE WAS REGRESSING. JUST KIND OF HOLDING STILL. GETTING READY FOR P.T. GAVE BLESSING AND ENCOURAGEMENT. WILL FOLLOW
--- NOTE | 2020-10-15 17:48 | NUR ---
PT. PICC DRESSING CHANGED. ARM PROMISE. 23CM. HEP LOCKED. RT. FOREARM HAS +2 PITTING EDEMA AND PT. COMPLAINS IT IS SORE. WILL CONTINUE TO MONITOR.
--- NOTE | 2020-10-15 18:16 | NUR ---
PT. IS HERE FOR ALTERED MENTAL STATUS. FWW/2PA. HER MENTATION HAS IMPROVED THIS SHIFT. STILL FORGETFUL. ANXIOUS WHEN FAMILY NOT PRESENT AND WILL YELL OUT FOR HELP, BUT UNABLE TO STATE WHAT SHE NEEDS. MULTIPLE SCRAPES AND A HEMATOMA ON THE BACK OF THE SCALP. RT. SIDED WEAKNESS IN EXTREMITES AT BASELINE.
--- NOTE | 2020-10-15 19:41 | NUR ---
CALL IN TO DR ARREDONDO. PT C/O ARM PAIN THAT "FEELS LIKE A BRUISE". FLUID FILLED ENLARGED AREA BELOW THE PICC LINE. NURSE MARHA FROM DAY SHIFT REPORTS THAT THIS FLUID HAS INCREASED SINCE 1699 BANDAGE CHANGE. VERBAL ORDER FROM DR ARREDONDO TO D/C PICC LINE AND USE COLD COMPRESS ON SWOLLEN AREA. VERBAL ORDER READ BACK TO DR ARREDONDO.
--- NOTE | 2020-10-15 20:11 | NUR ---
IN ROOM WITH CHARGE NURSE BRANDON TO REMOVE PICC LINE PER ORDERS. PT TOLERATED WELL. BANDAGED PER PROTOCOL WITH PETROLEUM GEL GAUZE, STERILE GAUZE, OPSITE AND COBAN TO FORM A PRESSURE BANDAGE. PT ARM ELEVATED ON 2 PILLOWS WITH ICE PACK TO SWOLLEN AREA. PT INSTRUCTED HE WILL NEED TO REMAIN SUPINE FOR 60MINUTES. PT AGREES. CALL LIGHT WITHIN REACH.
--- NOTE | 2020-10-15 20:47 | NUR ---
ASSISTED PT TO PLACE URINAL, HE WILL CALL WHEN HE IS DONE. R ARM BANDAGE IS INTACT AND NO BLEEDING SEEN. CALL LIGHT IS CLOSE.
--- NOTE | 2020-10-15 21:18 | NUR ---
IN ROOM FOR EVENING MEDS AND ASSESSMENT. DRESSING COVERING D/C'D PICC LINE CDI THEREFORE COBAN COMPRESSION RELEASED TO A HOT ROOM ATTENDANT PRESSURE. PT REPORTS 4/10 PAIN IN R ARM WHERE EDEMA/SWELLING IS. PT DENIES NEEDS FOR PRN PAIN MEDICATION. BLE PITTING 2+ TO THIGH. WOUND DRESSING TO LEFT FOOT CDI. CMS INTACT ALTHOUGH PT DOES REPORT TINGLING/NUMBNESS IN TOES; THIS IS CHRONIC. LUNG SOUNDS CLEAR, BOWEL TONES ACTIVE, HEART RATE IRREGULAR (CHRONIC). PT POSITIONED FOR SLEEP WITH R ARM ELEVATED AND ICE PACK APPLIED. PT DENIES FURTHER NEEDS AT THIS TIME. CALL LIGHT WITHIN REACH.
--- NOTE | 2020-10-15 23:58 | NUR ---
PT CALLED, NEEDED HELP AND FEELING CONFUSED, ASST PT UP TO THE CHAIR WITH FWW, INFORMED PRIMARY RN, CALL LIGHT IN REACH
--- NOTE | 2020-10-16 00:06 | NUR ---
CHECKED ON PT D/T AMORTIZATION SCHEDULE CLERK INFORMING THIS RN THAT PT HAD FELT CONFUSED. PT STATES THAT HE IS "COMING AROUND" AND STATES THAT THIS IS NOT THE FIRST TIME SINCE BEING IN HOSPITAL THAT HE HAS FELT THAT WAY AT NIGHT. PT REPORTS THAT IT "ALL STARTED WHEN I COULDNT FIND MY CALL LIGHT". REASSURED PT THAT THIS RN WILL CONTINUE TO MONITOR HIM. PT STATES HE APPRECIATED THAT. CALL LIGHT WITHIN REACH.
--- NOTE | 2020-10-16 00:46 | NUR ---
CHECKED ON PT. SBA FWW BACK TO BED. PT POSITIONED TO LEFT TILT WITH PILLOW UNDER RIGHT HIP. CALL LIGHT AND BEDSIDE TABLE WITHIN REACH.
--- NOTE | 2020-10-16 08:15 | NUR ---
Patient sitting up at bedside eating breakfast, a&ox3. Patient denies pain at this time. Right arm a bit swollen as he had a PICC line removed due to infiltration on previous shift. Patient denies sob at this time. Left food dressing is CDI. No needs at this time. at bedside visiting.
--- NOTE | 2020-10-16 11:20 | NUR ---
Patient resting in bed visiting with . Patient denies needs. Encouraged patient to elevate right arm. Personal supplies and call light within reach. No needs at this time.
--- NOTE | 2020-10-16 15:24 | NUR ---
Patient in bed resting, eyes closed, respirations even and non labored. Patient has no notable distress. Call light within reach.
--- NOTE | 2020-10-16 16:30 | NUR ---
ASSUMING CARE OF THIS PATIEN NOW.
--- NOTE | 2020-10-16 16:45 | NUR ---
MED PASS + ASSESSMENT pt assessed at this time, though on swing bed, focused and general assessment done for my own knowledge of pt and baseline. pts left foot dressing CDI, pt reports slight pain only with pressure to the heel. pt up to chair at this time, warm blankets given and fresh water given. pt able to take meds without difficulty. pt did not have INR labs done for today and yesterdays INR was 3.3, charge nurse asked if we could use yesterdays labs for todays warfarin med pass, Mamta RN confirmed this safe. pt and in chairs, watching tv, table and call light within reach.
--- NOTE | 2020-10-16 18:00 | NUR ---
ROUNDING pt and up to chairs, having dinner. pt denies pain and nausea at this time. pt content at this time, table and call light in reach.
--- NOTE | 2020-10-16 19:30 | NUR ---
SHIFT REPORT RECEIVED FROM KASHIF GARLAND. PT SITTING ON BED, TALKING WITH . NO NEEDS AT THIS TIME. CALL LIGHT IN REACH.
--- NOTE | 2020-10-16 21:00 | NUR ---
IN TO GET VITALS, PT ICE WATER REFRESHED, WHITEBOARD UPDATED, NO FURTHER NEEDS AT THIS TIME
--- NOTE | 2020-10-16 21:15 | NUR ---
ASSESSMENT, VS AND I&O COMPLETED. GCS 15, A&O X4. SCHEDULED MEDS PROVIDED. LUNGS CLEAR. HEART TONES IRREGULAR. RIGHT FA SWELLING NOTED, ICE PACK PROVIDED. ALLEVYN REMOVED FROM OLD PICC LINE SITE, WNL. ABD SOFT, NONTENDER, PT STATES NORMAL, BOWEL TONES ACTIVE. NUMBNESS AND TINGLING IN HANDS AND FEET, PULSES INTACT. RLE HAS 2+ EDEMA. LLE HAS 1+ EDEMA, DRESSING CDI. PT REPOSITIONED. PAIN IN R FA 2/10. NO OTHER NEEDS AT THIS TIME. CALL LIGHT IN REACH.
--- NOTE | 2020-10-16 22:25 | NUR ---
IN TO ASSIST PT WITH URINAL, SBA FWW AT BEDSIDE, 200mls EMPTIED, NO FURTHER NEEDS
--- NOTE | 2020-10-17 00:14 | NUR ---
PT RESTING IN BED, EYES CLOSED. RR EVEN, UNLABORED. CALL LIGHT IN REACH.
--- NOTE | 2020-10-17 01:35 | NUR ---
PT CALLS TO USE BR. PT STANDS AT BEDSIDE WITH FWW AND USES URINAL. BACK TO BED. NO OTHER NEEDS AT THIS TIME.
--- NOTE | 2020-10-17 03:17 | NUR ---
call light on, pt states, "i feel like in need more air" this teradata developer and rn in rm to assist pt, o2 checked, raise hob, rn assesting pt, rt call for a breathing tx
--- NOTE | 2020-10-17 03:31 | NUR ---
PT CALLS STATING HE IS SOB. PT HOB ELEVATED. SPO2 95%. LUNGS CLEAR IN UPPER LOBES AND DIMINISHED IN LOWER LOBES. PT VOICE SEEMS RASPY. ICE WATER PROVIDED AND RT NOTIFIED. RT IN ROOM.
--- NOTE | 2020-10-17 04:37 | NUR ---
CALL LIGHT ON, PT FEELING SOB, BOOSTED IN BED, HOB ELEVATED, SWG I@Os RECORDED NO FURTHER NEEDS, RN AWARE AT THIS TIME
--- NOTE | 2020-10-17 06:43 | NUR ---
PT CALLED FROM RESTROOM, 1PA WITH FWW BACK TO BED. HE DENIES FURTHER NEEDS AT THIS TIME. CALL LIGHT IS CLOSE.
--- NOTE | 2020-10-17 07:05 | NUR ---
SHIFT REPORT FROM RAFAEL GARLAND INCLUDED: pt had minimal tolerable pain in his right arm last night, and none reported in his left heel, except slightly when up to bathroom. pt requested PRN breathing tx last night, though saturations and auscultation could not indicate that there was much need or change from before and after. pt is currently resting in bed, eyes closed, breathing even and unlabored, table and call light in reach. at bedside.
--- NOTE | 2020-10-17 09:00 | NUR ---
MED PASS + ASSESSMENT pt assessment complete, VSS. pt reports 2/10 "frustrating" pain in right arm, minimal pain in his left heel "when hits it on anything". pt given PRN tylenol for pain. pt and given fresh water. pt able to take all meds as ordered, table and call light in reach.
--- NOTE | 2020-10-17 10:00 | NUR ---
PATIENT UP IN ROOM WITH FWW, ASSISTING. PATIENT MOVING FROM CHAIR TO SIDE OF BED. PATIENT BECAME WEAK, THIS PRE SALES TECHNICAL ENGINEER TOOK OVER ASSISTING. WARM BLANKETS AND KENNETH SODA PROVIDED. WARM WIPES PROVIDED WELL.
--- NOTE | 2020-10-17 10:30 | NUR ---
PATIENT UP WORKING WITH PHYSICAL THERAPY OMEGA AT THIS TIME.
--- NOTE | 2020-10-17 11:45 | NUR ---
ROUNDING pt in bed, watching tv at this time. pt denies pain and nausea. pt denies needs. pt in bed, table and call light in reach.
--- NOTE | 2020-10-17 12:20 | NUR ---
ROUNDING pt having lunch at this time. pt denies needs. table and call light in reach.
--- NOTE | 2020-10-17 13:10 | NUR ---
MED PASS pt sits up in bed to take med. pt able to take med without difficulty. pt and given fresh water at this time. pt denies pain and nausea and reports that he feels his mouth is slightly improved. pt up to bedside, breathing even and unlabored, table and call light in reach.
--- NOTE | 2020-10-17 14:30 | NUR ---
ROUNDING pt in bed, visiting with at this time. pt denies needs at this time, table and call light in reach.
--- NOTE | 2020-10-17 14:42 | NUR ---
PATIENT RESTING IN BED, IN ROOM. I&OS CHARTED
--- NOTE | 2020-10-17 15:30 | NUR ---
ROUNDING pt and watching tv from the chairs at this time. pt denies pain and nausea at this time. pt given fresh water. pt denies further needs at this time. table and call light within reach.
--- NOTE | 2020-10-17 16:55 | NUR ---
MED PASS pt and in chairs, watching tv. pt up to bed at this time, 1PA FWW. pt in bed, sitting up to bedside having dinner. pt able to take all meds without difficulty. pt reports 2/10 "frustrating" pain, PRN tylenol given at this time. pt denies further needs at this time. table and call light in reach.
--- NOTE | 2020-10-17 17:30 | NUR ---
DINNER BROUGHT TO THE ROOM AT THIS TIME. NO FURTHER NEEDS.
--- NOTE | 2020-10-17 18:16 | NUR ---
ROUNDING pt and finishing dinner and watching TV. pt denies needs at this time. table and call light in reach.
--- NOTE | 2020-10-17 19:28 | NUR ---
SHIFT REPORT FROM NURSE KASHIF. PT AWAKE IN BED, ALERT AND TALKATIVE. PT DENIES NEEDS AT THIS TIME. PT BOOSTED IN BED, REPOSITIONED. CALL LIGHT WITHIN REACH.
--- NOTE | 2020-10-17 21:15 | NUR ---
IN ROOM FOR EVENING ASSESSMENT AND MEDS. PT IS POSITIONED ODDLY IN BED, AWAKE, ALERT AND ORIENTED. REPOSITIONED PT WITH 2 RNS. FLOATED HIPS WITH PILLOWS ALONG WITH LEGS ELEVATED D/T CONTINUING BLE EDEMA. RT ARM SWELLING/EDEMA IMPROVED BUT STILL PRESENT. VSS. LUNG SOUNDS HAVE OCCASIONAL FINE CRACKLES IN LOWER LOBES. PT COUGHED DURING ASSESSMENT AND THESE SEEMED TO CLEAR. PT REPORTS MINIMAL PAIN IN RT ARM AND NONE IN LEFT FOOT. WOUND DRESSING ON LEFT FOOT CDI. NOTED ABOVE, BLE EDEMA FROM FEET TO THIGHS; PITTING. PT HAD NECK PILLOW FROM HOME "FOR UNDER MY BUTT". PT AGREED TO FLOATING HIPS RATHER THAN USING THE TRAVEL NECK PILLOW. PT DENIES FURTHER NEEDS AT THIS TIME. CALL LIGHT WITHIN REACH.
--- NOTE | 2020-10-17 21:28 | NUR ---
ASSISTED PRIMARY RN TO REPOSITION pt TO FLOATING. SKIN INTACT ON BACKSIDE WITH REPOSITIONING. LEGS ELEVATED. CALL LIGHT WITHIN REACH.
--- NOTE | 2020-10-17 23:03 | NUR ---
CALL LIGHT ANSWERED. PT REPORTS THAT HE "CANT GET ENOUGH AIR". SPO2 96% ON ROOM AIR. REPOSITIONED PT INTO UPRIGHT POSITION. PT DENIES NEEDS FOR A NEB TREATMENT AT THIS TIME. CALL IN TO RT ALEXANDRE. ALEXANDRE CAME TO THE FLOOR AND EXAMINED PT. NO CHANGES TO LUNGS NOTED. REPOSITIONED PT; 1L O2 PER NC FOR COMFORT WHICH SOOTHES THE PT. BP 127/75 MAP (87) HR 54 IRREGULAR, SPO2 99% 1LNC.
--- NOTE | 2020-10-17 23:15 | NUR ---
PT REPORTS FEELING BETTER BUT "CAN'T CLEAR MY THROAT"; MOIST COUGH NOTED. PT CONTINES TO FIND COMFORT IN 1LNC. CALL LIGHT WITHIN REACH. WILL CONTINUE TO MONITOR
--- NOTE | 2020-10-17 23:50 | NUR ---
CHECKED ON PT. PT WAS SLEEPING THIS NURSE ENTERS ROOM; AWAKES TO HIS NAME. PT REPORTS FEELING "OK" BUT STILL HAVING "MUCOUS I CANT GET OUT" IN HIS THROAT. PT CONTINUES TO WEAR 1LO2 PER NC. WILL CONTINUE TO MONITOR.
--- NOTE | 2020-10-18 00:27 | NUR ---
checked on pt. pt sleeping with eyes closed and even breathing noted. no apparent signs of distress. of note, pt does open mouth breathe when sleeping. call light within reach.
--- NOTE | 2020-10-18 01:43 | NUR ---
CHECKED ON PT. PT APPEARS TO BE SLEEPING WITH EYES CLOSED AND EVEN BREATHING NOTED. CALL LIGHT WITHIN REACH AND PT CONTINUES TO WEAR 1L O2 PER NC. NO APPARENT SIGNS OF DISTRESS.
--- NOTE | 2020-10-18 02:05 | NUR ---
CALL LIGHT ANSWERED. SBA FWW TO TOILET TO VOID. PT TOLERATED AMBULATION AND TOILET TIME WELL BUT GOT SOB UPON RETURN TO BED. 1L O2 NC REAPPLIED. PT POSITIONED IN UPRIGHT POSITION PER REQUEST TO ASSIST WITH BREATHING. PT RECOVERS QUICKLY ONCE SETTLED IN BED. PT DENIES FURTHER NEEDS AT THIS TIME. CALL LIGHT WITHIN REACH.
--- NOTE | 2020-10-18 03:27 | NUR ---
CALL LIGHT ANSWERED. PT REQUESTS PRN BREATHING TREATMENT. RT INFORMED.
--- NOTE | 2020-10-18 05:29 | NUR ---
CALL LIGHT ANSWERED. PT REQUESTS TO GET UP TO CHAIR. CALL LIGHT WITHIN REACH. I&OS ENTERED.
--- NOTE | 2020-10-18 06:30 | NUR ---
CALL LIGHT ANSWERED. PT UP TO TOILET TO VOID. PT RETURNED TO BED AND REPOSITIONED TO HIS COMFORT. PT'S ARRIVED, MANY QUESTIONS ANSWERED. CALL LIGHT WITHIN REACH.
--- NOTE | 2020-10-18 07:10 | NUR ---
REPORT RECEIVED FROM ANA GARLAND. PT SITTING UP IN BED, AWAKE AND ALERT. AT BEDSIDE. BOTH STATE NO NEEDS AT THIS TIME. WILL CONT PLAN OF CARE
--- NOTE | 2020-10-18 08:45 | NUR ---
Scheduled medications administered. New IV started in R forearm, 22g. Pt tolerated well. IV Lasix administered per order. Pt c/o cough, states SOB or chest pain. 2+ pitting edema noted in BLE from above knee to feet, and 1+ pitting in bilat forearms. Skin is fragile, scattered scabs noted. at bedside, engaged in care and attentive to pt. OT in room with pt, all state no further needs.
--- NOTE | 2020-10-18 09:45 | NUR ---
Breakfast tray cleared, pt sitting up at bedside and states no needs. On 1L O2, SPO2 at 97% Call light in [facility].
--- NOTE | 2020-10-18 11:45 | NUR ---
Spoke with pt and his . Pt states he is having ups and downs. Wanting to cont. on TC and work with PT/OT. Pt again stating he will stay until he gets stronger. in agreement.
--- NOTE | 2020-10-18 13:05 | NUR ---
Scheduled medication administered, pt and asked if they had any questions or concerns regarding the plan of care and both state no at this time.
--- NOTE | 2020-10-18 14:24 | NUR ---
both nares swabbed for covid-19 without complication. sample taken to [facility] for rapid testing.
--- NOTE | 2020-10-18 14:31 | NUR ---
PT ALERT, ORIENTED AND SITTING ON SIDE OF BED VISITING WITH KERWIN. PT IS PLEASANT, OT JOSE HAD BEEN WORKING WITH PT AND P.T. WAS TO COME IN LATER. HE HASN'T SLEPT VERY WELL, AND WOULD LIKE TO HAVE THAT IMPROVED. FLUID RETENTION SEEMS TO BE AN ISSUE AND PT WAS WEARING GLOVES. HIS HANDS ARE COLD, BUT WORKS HARD TO REMAIN POSITIVE. REQUESTED PRAYER, WILL FOLLOW
--- NOTE | 2020-10-18 16:37 | NUR ---
Scheduled medications administered. Pt resting in bed, at bedside. Both state no needs, ice water refreshed. Call light in reach.
--- NOTE | 2020-10-18 18:28 | NUR ---
DR CROUCH CALLED AND WILL BE IN ON SUNDAY TO EXAMINE DRESSING. WOULD LIKE NURSING STAFF TO CONTINUE DRESSING CHANGES PER PREVIOUS ORDER.
--- NOTE | 2020-10-18 19:35 | NUR ---
SHIFT REPORT FROM NURSE CASTANON. PT REQUESTS TO BE REPOSITIONED IN BED. I&OS UPDATED, FOOD TRAY CLEARED. PT DENIES FURTHER NEEDS AT THIS TIME. CALL LIGHT WITHIN REACH.
--- NOTE | 2020-10-18 20:45 | NUR ---
ASSESSMENT COMPLETE. PT STOOD TO USE URINAL, 100ML URINE NOTED. PT REPORTS A CONTINUED SOB FEELING ALTHOUGH SPO2 95-98% ON 1LNC. BLE EDEMA REMAINS 2+ PITTING. RT ARM EDEMA IMPROVING. LUNG SOUNDS DIM IN LLL, RUL; CLEAR IN LETTY, CRACKLES NOTED IN RLL. PT ENCOURAGED TO USE I.S.; PT EDUCATED ON PROPER USE, SEEMS MOTIVATED. BOWEL TONES ACTIVE, VSS, CONTINUED CHRONIC TINGLING IN EXTREMITIES. FRESH WATER PROVIDED, CALL LIGHT CLIPPED TO PILLOW, BEDSIDE TABLE WITHIN REACH. NO FURTHER NEEDS AT THIS TIME.
--- NOTE | 2020-10-18 22:53 | NUR ---
CALL LIGHT ANSWERED. SBA FWW TO TOILET TO VOID. PT RETURNED TO BED, 1L O2 PER NC CONTINUED FOR PT COMFORT. CALL LIGHT WITHIN REACH.
--- NOTE | 2020-10-19 01:16 | NUR ---
CHECKED ON PT. PT APPEARS TO BE SLEEPING WITH EYES CLOSED, EVEN BREATHING NOTED. CALL LIGHT WITHIN REACH. NO APPARENT SIGNS OF DISTRESS.
--- NOTE | 2020-10-19 04:17 | NUR ---
CHECKED ON PT. PT APPEARS TO BE SLEEPING WITH EYES CLOSED, EVEN BREATHING NOTED. CALL LIGHT WITHIN REACH.
--- NOTE | 2020-10-19 05:51 | NUR ---
CALL LIGHT ANSWERED. SBA TO RESTROOM WITH FWW, pt C/O DIZZINESS INITIALLY SITTING UP AND SHORTNESS OF BREATH WITH AMBULATION. SBA BACK TO BED AFTER VOID. COFFEE PROVIDED. CALL LIGHT IN REACH. 1L OXYGEN BY [place] IN PLACE.
--- NOTE | 2020-10-19 07:15 | NUR ---
Report received from Connie GARLAND. Pt has no needs at this time, will continue plan of care
--- NOTE | 2020-10-19 08:00 | NUR ---
Scheduled medications administered. Assessment complete. Pt resting in bed, awakens to voice, states no pain but noticing increased WOB with activity as also noted in morning report. Pt on 1L 02 via NC, SPO2 100%. Fine crackles noted in R lung lobes. RT in room to administer neb TX. Pt set up for breakfast. VSS. Call light in reach
--- NOTE | 2020-10-19 08:08 | NUR ---
PATIENT IN BED RESTING, IN ROOM. PATENT REFUSED WARM WASHCLOTH AT THIS TIME. CALL LIGHT IN REACH. NO FURTHER NEEDS AT THIS TIME.
--- NOTE | 2020-10-19 10:50 | NUR ---
Rounded on patient, resting in bed on room air, states comfortable with no needs at this time. Call light in reach.
--- NOTE | 2020-10-19 10:51 | NUR ---
PER CORI IN CASE MANAGEMENT PATIENT DAUGHTER SHERINE WILL BE HERE AT 1730 TO DISCUSS CARE, SURGERY AND PLACEMENT OF PATIENT WITH DR. PINZON.
--- NOTE | 2020-10-19 11:20 | NUR ---
PATIENT UP TO BATHROOM EARLIER. PATIENT NOW IN BED RESTING. I&O'S CHARTED. FRESH WATER GIVEN. CALL LIGHT IN REACH. NO FURTHER NEEDS AT THIS TIME.
--- NOTE | 2020-10-19 12:52 | NUR ---
No change in plan for discharge.
--- NOTE | 2020-10-19 13:49 | NUR ---
PATIENT UP TO CHAIR WITH RN. LINENS CHANGED. I&O'S CHARTED. CALL LIGHT IN REACH. NO FURTHER NEEDS AT THIS TIME.
--- NOTE | 2020-10-19 13:52 | NUR ---
PT SITTING IN CHAIR, WATCHING TV AND FINISHING HIS LUNCH. PT SEEMED SATISFIED AND WAS VERY PLEASANT. HIS IF AWAY RUNNING [place]. PT PLANS ON P.T. LATER TODAY. GAVE ENCOURAGEMENT AND BLESSING. WILL CONTINUE TO FOLLOW
--- NOTE | 2020-10-19 14:48 | NUR ---
CONNECTED WITH PTS' KERWIN. SHE WAS RETURNING FROM [place] AND CONFIDED IN ME THAT PT WAS ABOUT READY TO QUIT. SHE TOLD ME THEY HAD A LITTLE DISCUSSION, SHE FEELS HE IS SEEING THINGS FROM A DIFFERENT PERSPECTIVE. I WILL CONTINUE TO GIVE ENCOURAGEMENT TO PT. WILL FOLLOW NEEDED
--- NOTE | 2020-10-19 15:30 | NUR ---
Rounded on patient who is resting in chair, pt states pt has been walking around in room and states no needs. Call light in reach.
--- NOTE | 2020-10-19 17:45 | NUR ---
Scheduled medications administered, pt sitting up at bedside eating dinner.Water refilled. at bedside, attentive to pt and engaged in care. Call light in reach, no further needs.
--- NOTE | 2020-10-19 18:19 | NUR ---
PATIENT SITTING ON EDGE OF BED, IN ROOM. I&O'S CHARTED. CALL LIGHT IN REACH. NO FURTHER NEEDS AT THIS TIME.
--- NOTE | 2020-10-19 19:22 | NUR ---
IN ROOM FOR REPORT, PT IS RESTING WITH EYES CLOSED, CALL LIGHT IS CLOSE.
--- NOTE | 2020-10-19 21:30 | NUR ---
ASSISTED PRIMARY RN TO BOOST pt HIGHER IN BED. LEGS ELEVATED ON PILLOWS. pt ALERT, NOTIFIES THIS RN THAT HE WILL BE GOING HOME SUNDAY. pt IN GOOD SPIRITS. PRIMARY RN REMAINS IN ROOM FOR MEDICATION ADMINISTRATION. NO CONCERNS AT THIS TIME.
--- NOTE | 2020-10-19 21:51 | NUR ---
IN ROOM TO ASSESS PT AND ADMINISTER MEDICATIONS. IT WAS DIFFICULT FINDING L PEDAL PULSE D/T WRAP ON FOOT, PULLED IT BACK SOME TO FIND PULSE WITH DOPPLER. PT HAS GOOD CAPREFILL IN TOES AND 2+EDEMA IN LE. BOTH ARMS HAVE COMPRESSION SLEEVES IN PLACE AND RT ARM HAS SOME EDEMA AND IS ELEVATED ON PILLOW. PT DENIES PAIN AT THIS TIME. PT STATES HE STILL GETS SOB WHILE UP OUT OF BED. HE IS ON 1LNC FOR COMFORT. BOOSTED PT WITH HELP OF DAIRY EQUIPMENT INSTALLER BAILEY. PT DENIES FURTHER NEEDS AT THIS TIME. CALL LIGHT IS CLOSE.
--- NOTE | 2020-10-19 22:54 | NUR ---
CALL LIGHT ANSWERED, 1PA WITH FWW TO ASSIST pt TO STAND AT SIDE OF BED FOR VOID, CONCENTRATED, 105 MLS. pt STATES "I JUST FEEL LIKE I CANT CATCH MY BREATH." 1L OXYGEN BY NC APPLIED REQUESTED. HOB ELEVATED, LEGS ELEVATED. CALL LIGHT IN REACH.
--- NOTE | 2020-10-19 23:20 | NUR ---
PT IS RESTING WITH EYES CLOSED, RR IS EVEN AND NONLABORED. CALL LIGHT IS CLOSE.
--- NOTE | 2020-10-20 00:50 | NUR ---
PT IS RESTING WITH EYES CLOSED, RR IS EVEN AND NONLABORED. CALL LIGHT IS CLOSE.
--- NOTE | 2020-10-20 01:57 | NUR ---
PT CALLED TO USE RESTROOM. SBA WITH FWW TO RESTROOM AND BACK TO BED. HE DENIES FURTHER NEEDS AT THIS TIME. LEGS AND ARMS ELEVATED ON PILLOWS AND CALL LIGHT IS CLOSE.
--- NOTE | 2020-10-20 04:06 | NUR ---
CALL LIGHT ANSWERED. 1PA WITH FWW TO RESTROOM FOR VOID. pt USED CALL LIGHT WHEN FINISHED. BACK IN BED, LEGS ELEVATED, HOB ELEVATED. 1L OXYGEN BY NC IN PLACE. BREATHING LABORED AFTER AMBULATION. pt APPEARS TO RECOVER WELL AND CLOSES EYES, BREATHING NOW UNLABORED.
--- NOTE | 2020-10-20 04:13 | NUR ---
PT IS RESTING WITH EYES CLOSED, RR IS EVEN AND NONLABORED. CALL LIGHT IS CLOSE.
--- NOTE | 2020-10-20 06:20 | NUR ---
PT REQUESTED NEB TRT. RT ADMINISTERED NEB. PT DENIES NEEDS AT THIS TIME. CALL LIGHT IS CLOSE.
--- NOTE | 2020-10-20 07:30 | NUR ---
RECEIVED REPORT AT 0700, FOUND PT SITTING ON SIDE OF BED WITH IN ROOM. PT HAD SOME CONCERN ABOUT PAIN IN HIS RIGHT WRIST. NOTHING VISIBLE WAS NOTED IN REGARDS TO HIS RIGHT WIRST PAIN.
--- NOTE | 2020-10-20 08:27 | NUR ---
PATIENT DONE WITH BREAKFAST. AM CARE DONE VITALS DONE. NOTHING ELSE NEEDED
--- NOTE | 2020-10-20 08:30 | NUR ---
UPPER LOBES HAVE SOME EXP. WHEEZING PRESENT. LOWER LOBES ARE VERY DIMINISHED. BILAT. LOWER AND UPPER LEG EDEMA +2, ABD EDEMA +1, RIGHT LOWER ARM EDEMA +2. CAP REFILL ON RIGHT FOOT IS >3SEC. PT DID STATE THAT HE FEELS MORE SWOLLEN OVERALL. LET MD GALLEGO KNOW ABOUT EDEMA. WILL CONTINUE TO MONITOR.
--- NOTE | 2020-10-20 08:30 | NUR ---
PT DISCUSSED IN 829 MEETING WITH AND PT. CONT. TO PLAN FOR DC TO HOME ON SUNDAY. WILL GIVE NOTICE OF DC LETTER TOMORROW. PLAN FOR PT TO DC TO HOME WITH PT AND OT.
--- NOTE | 2020-10-20 11:02 | NUR ---
PT IS IN BED WITH HIS LEGS ELEVATED. PT DENIES ANY NEW COCNERNS AT THIS TIME. WILL CONTINUE TO MONITOR.
--- NOTE | 2020-10-20 12:33 | NUR ---
PATIENT SITTING ON SIDE OF BED AFTER EATING LUNCH. PATIENT SAID HE WILL CALL WHEN HES READY TO LAY DOWN.
--- NOTE | 2020-10-20 13:39 | NUR ---
PATIENT SITTING ON SIDE OF THE BED. GAVE WARM BLANKET NOTHING ELSE NEEDED AT THIS TIME.
--- NOTE | 2020-10-20 13:42 | NUR ---
PT ALERT, ORIENTED AND LAYING WRAPPED UP IN COVERS. KERWIN AT BS. PT IS IN GOOD SPIRITS, KERWIN WELL. GAVE ENCOURAGEMENT EVS CAME TO CARE FOR RM.
--- NOTE | 2020-10-20 14:49 | NUR ---
PT IN ROOM SITTING AT SIDE OF BED. PT HAD NO NEEDS OR CONCERNS AT THIS TIME.
--- NOTE | 2020-10-20 17:16 | NUR ---
WITH ASSESSMENT THIS MORNING IT WAS NOTED THAT PT HAS PITTING EDEMA PRESENT FROM GRADE +1 TO +2 IN HIS SABRINA LOWER LEGS/FEET,UPPER LEGS AND ABDOMEN. MD GALLEGO WAS NOTYFIED OF THIS. V/S WDL, URINE OUTPUT WDL, UPPER LOBES HAVE EXP. WHEEZING PRESENT AT TIMES ONLY. OTHERWISE LOBES ARE CLEAR WITH DIMINISHED BASES. PEDIS PULSES NEED DOPPLER. EDUCATED PT ON KEEPING HIS LEGS ELEVATED AND WARM. PT OVERALL HAD NO OTHER NEW CONCERNS TODAY.
--- NOTE | 2020-10-20 17:30 | NUR ---
PATIENT ATE ALL OF HIS MEAL HAS NO COMPLAINTS. DOESNT NEED ANYTHING ELSE AT THIS TIME.
--- NOTE | 2020-10-20 21:41 | NUR ---
ASSESSMENT, VS AND I&O COMPLETED. GCS 15, A&O X4. LUNGS CLEAR IN UPPER LOBES, DIMINISHED IN LOWER LOBES. IV WNL, CDI, FLUSHED WELL. ABD SOFT, NONTENDER, PT STATES NORMAL, BOWEL TONES ACTIVE. RIGHT ARM HAS GLOVE ON HAND AND WRIST, CMS INTACT. CMS INTACT IN LEFT ARM. NUMBNESS AND TINGLING IN LOWER EXTREMEITIES. LLE DRESSING CDI. 1+ EDEMA IN RLE UP TO KNEE, KNEE HAS 2+ EDEMA. RLE EDEMA 2+ FROM FOOT INTO LOWER LEFT THIGH. HEART TONES IRREGULAR. SCHEDULED MEDS PROVIDED. PT STATES MOUTH IS STILL PAINFUL, REDNESS NOTED. NO OTHER NEEDS AT THIS TIME. CALL LIGHT IN REACH.
--- NOTE | 2020-10-20 23:50 | NUR ---
PT RESTING IN BED, EYES CLOSED. RR EVEN, UNLABORED. CALL LIGHT IN REACH.
--- NOTE | 2020-10-21 01:02 | NUR ---
PT CALLED FOR ASSISTANCE TO RESTROOM. HE IS HAVING A HARD TIME USING WALKER WITH HIS R WRIST PAIN WHICH HE RATES 6/10. NOTIFIED PT'S PRIMARY RN RAFAEL. PT WILL CALL WHEN HE IS DONE IN RESTROOM.
--- NOTE | 2020-10-21 01:15 | NUR ---
PT BACK TO BED FROM . PT STATES HE HAS 6/10 RIGHT WRIST PAIN. PT IS UNABLE TO USE HIS RIGHT HAND ON WALKER. PULSES INTACT. PRN PAIN MED PROVIDED. NO OTHER NEEDS AT THIS TIME. CALL LIGHT IN REACH.
--- NOTE | 2020-10-21 03:09 | NUR ---
IN TO ASSIST PT TO THE TOILET, 1PA FWW TO GET OUT OF BED, SBA INTO THE BR, PT PASS A BM, AGREES TO CALL WHEN READY
--- NOTE | 2020-10-21 03:17 | NUR ---
PT BACK TO BED AT THIS TIME, SBA FWW, ASSIST PT WITH LEGS INTO BED, NO FURTHER NEEDS AT THIS TIME
--- NOTE | 2020-10-21 04:00 | NUR ---
PT RESTING IN BED, EYES CLOSED. RR EVEN, UNLABORED. CALL LIGHT IN REACH.
--- NOTE | 2020-10-21 05:49 | NUR ---
IN TO GET I&Os, PT NEEDED BOOSTED, C/O RT HAND PAIN AND SWELLING, RN IN TO CHECK IT, WARM PACK IN PLACE TO SEE IF IT HELPS
--- NOTE | 2020-10-21 07:30 | NUR ---
RECEIVED REPORT AT AROUND 0700. PT WAS AWAKE WITH AT BEDSIDE.
--- NOTE | 2020-10-21 09:40 | NUR ---
UPPER LOBES ARE CLEAR, LOWER LOBES DIMINSHED. EDEMA IN FEET, LOWER LEGS, UPPER LEGS UNCHANGED SINCE YESTERDAY. ABD EDEMA SEEMS IMPROVED TODAY. RIGHT WRIST PAIN HAS INCREASED SINCE YESTERDAY.
--- NOTE | 2020-10-21 09:50 | NUR ---
PATIENT SITTING UP AT EDGE OF BED. VISITING. PATIENT DIDN'T EAT HIS TOAST THIS MORNING AND ONLY A COUPLE BITES OF THE SOFT-BOILED EGGS BECAUSE THEY WERE TOO HARD THIS MORNING. HE DID HAVE A PUDDING CUP ONCE HIS ARRIVED. I OFFERED A LOWER SUGAR ENSURE BUT HE WASN'T INTERESTED. I OFFERED A GLASS OF WHOLE MILK AND HE SAID YES. BROUGHT A CUP OF COLD WHOLE MILK UP. WILL ADD IT TO HIS BREAKFAST ORDER WHILE HERE FOR EXTRA NUTRITION. HE IS GETTING TIRED OF THE PATIENT MENU SO I OFFERED HIM THE CAFE SPECIAL OF CHICKEN AND WAFFLES WITH GREEN BEANS AND HE SAID THAT SOUNDS GOOD. WILL HAVE KITCHEN STAFF CUT IT UP FOR HIM AND BRING SUGAR-FREE SYRUP. HE IS HAVING PAIN IN HIS RIGHT WRIST YESTERDAY AND TODAY. WILL CONTINUE TO WORK WITH PATIENT TO OFFER MEALS THAT ARE DIFFERENT YET FIT WITHIN HIS 60 GM CARB DIET WHICH WILL HOPEFULLY INCREASE HIS INTAKE. WILL CONTINUE TO MONITOR.
--- NOTE | 2020-10-21 10:22 | NUR ---
patient was sitting on the edge of the bed to eat breakfast. When finished he swung his feet back into the bed and is now resting. Warm blanket from the warmer. Call light within reach. no further needs at this time.
--- NOTE | 2020-10-21 10:38 | NUR ---
PRN TYLENOL GIVEN FOR RIGHT WRIST PAIN 5/10. WILL CONTINUE TO MONITOR. PT NOT WILLING TO PUT ANY WEIGHT ON THAT WIRST.
--- NOTE | 2020-10-21 11:38 | NUR ---
PAIN IN RIGHT WRIST IS UNCHANGED WITH PRN TYLENOL. PT ALSO NOW IS MORE TIRED THAN YESTERDAY. AFTER EACH BATHROOM USE PT GOES TO BED AND SLEEPS FOR A WHILE. THIS IS A NEW DEVELOPMENT.
--- NOTE | 2020-10-21 13:00 | NUR ---
RIGHT WRIST STILL HURTING. WILL CONTINUE TO MONITOR.
--- NOTE | 2020-10-21 15:00 | NUR ---
RIGHT ARM HAS REDNESS PRESENT NOW UP TO HIS ELBOW. PAIN UNCHANGED.
--- NOTE | 2020-10-21 17:35 | NUR ---
AUGUSTIN WRIST IN PT HAS STILL BEEN A PROBLEM TODAY. THIS AFTERNOON INCRESING REDNESS WAS NOTED FROM THE WRIST TO THE ELBOW. MD ARREDONDO IS AWARE. V/S HAVE BEEN WDL SO FAR. URINE OUTPUT ERALIER DROPPED OF SOME. WILL CONTINUE TO MONITOR. PT OVERALL SEEMS MORE TIERD THAN IN PREVIOUS DAYS, PT STILL HAS UNCHANGED EDEMA IN HIS FEET, LOWER LEGS AND UPPER LEGS WHICH IS UNCHANGED FROM YESTERDAY. RIGHT ELBOW EDEMA ALSO STILL UNCHANGED. PT SEEMS MORE FRAGILE THAN DURING HIS LAST ADMISSION. MD CROUCH CHNAGED DRESSING ON LEFT HEEL ON 10/20/20. DRESSING SO FAR C/D/I.
--- NOTE | 2020-10-21 19:19 | NUR ---
SHIFT REPORT RECEIVED FROM OTNI GARLAND. PT IN BR WITH SPOUSE.
--- NOTE | 2020-10-21 20:55 | NUR ---
IN TO GET VITALS, PT IS DUE TO VOID, ICE WATER REFILLED, NO FURTHER NEEDS AT TIS TIME
--- NOTE | 2020-10-21 21:16 | NUR ---
ASSESSMENT COMPLETED. GCS 15, A&O X4. LUNGS CLEAR IN UPPER LOBES, DIMINISHED IN LOWER LOBES. HEART TONES IRREGUALR. ABD SOFT, NONTENDER, PT STATES NORMAL, BOWEL TONES ACTIVE. NUMBNESS IN ALL EXTREMITIES, CHRONIC. RIGHT WRIST PAIN 4/10, PRN PAIN MED PROVIDED. SCHEDULED MEDS PROVIDED. BLE HAVE 2+ EDEMA. LLE BANDAGING CDI. LEGS HAVE 1+ EDEMA. RIGHT WRIST HAS REDNESS AND MILD WARMTH ON INNNER LEFT WRIST, SCABS IN TOP OF RIGHT FA. IV WNL, CDI, FLUSHED WELL. PT ON RA AT THIS TIME, SPO2 97%. PT REPOSITIONED. NO OTHER NEEDS AT THIS TIME. CALL LIGHT IN REACH.
--- NOTE | 2020-10-21 23:32 | NUR ---
PT CALLS TO USE BR. UP TO BR, SBA FWW, BACK TO BED. NO OTHER NEEDS. CALL LIGHT IN REACH.
--- NOTE | 2020-10-22 01:30 | NUR ---
PT RESTING IN BED, EYES CLOSED. RR EVEN, UNLABORED. CALL LIGHT IN REACH.
--- NOTE | 2020-10-22 03:30 | NUR ---
PT RESTING IN BED, EYES CLOSED. RR EVEN, UNLABORED. CALL LIGHT IN REACH.
--- NOTE | 2020-10-22 06:27 | NUR ---
PT IS URINE INSUFFICIENT THIS SHIFT. NOTIFIED VIA [employer].
--- NOTE | 2020-10-22 07:00 | NUR ---
RECEIVED REPORT AROUND 0700. NO NEW CONCERNS WERE NOTED AT THAT TIME.
--- NOTE | 2020-10-22 09:30 | NUR ---
V/S WDL OVERALL, PT DID HAVE ANOTHER LIQUID BM THIS MORNING. SENNA WAS HELD AGAIN. UPPER LOBES CLEAR, LOWER LOBES DIMINISHED, PT IS ON RA AND DOING WELL WITH IT. RIGHT HAND AND WRIST HAS MORE EDEMA PRESENT TODAY. PT DID STATE HOWEVER THAT HIS PAIN WAS BETTER. EDEMA IN FEET, LOWER AND UPPER LEGS IN UNCHANGED. WILL CONTINUE TO MONITOR.
--- NOTE | 2020-10-22 10:47 | NUR ---
PT IN ROOM, NO NEW CONCERNS NOTED AT THIS TIME.
--- NOTE | 2020-10-22 11:38 | NUR ---
PT IN ROOM. RIGHT WRIST IS HURING MORE AGAIN.
--- NOTE | 2020-10-22 12:02 | NUR ---
PT ASLEEP, KERWIN IN RM. GAVE ENCOURAGEMENT, NOTICE SWELLING ON PT'S R ARM AND HAND. KERWIN SAID GOUT IS BELIEVED TO BE CAUSING PAIN AND INFLAMMATION. WILL FOLLOW
--- NOTE | 2020-10-22 12:32 | NUR ---
CHECK ON PATIENT. IN ROOM. ASKED HIM IF HE WOULD LIKE TO TAKE A SHOWER AND HE AND HIS SAID HE ALREADY DID HIS BED BATH. HE BRUSHED HIS TEETH AND WASHED HIS FACE.
--- NOTE | 2020-10-22 12:40 | NUR ---
PT IN ROOM WITH AT BEDSIDE. PT SITTING AT EDGE OF BED. RIGHT HAND, WRIST AND ARM ARE VERY SWOLLEN. PT HAS NO NEEDS AT THIS TIME.
--- NOTE | 2020-10-22 15:45 | NUR ---
PT STATED A FEW MINUTES AGO THAT HIS RIGHT HAND NUMBNESS HAS INCREASED SINCE YESTERDAY FROM HIS NUMBNESS. MD ARREDONDO AWARE.
--- NOTE | 2020-10-22 16:54 | NUR ---
ICE PACK APPLIED. PT WAS INSTRUCTED TO KEEP IT ON FOR NO MORE THAN 20MIN FOR NOW AND TO TAKE IT OFF SOONER IF HIS HANDS ARE GETTING COOLD.
--- NOTE | 2020-10-22 17:24 | NUR ---
IT WAS NOTED FIRST THING THIS MORNING THAT RIGHT HAND/WRIST HAD INCREASED IN SWELLING SIGNIFICANTLY SINCE YESTERDAY. PT ALSO DID REPORT MORE NUMBNESS THAN YESTERDAY. MD ARREDONDO THIS AFTERNOON ORDERED AN X-RAY. OTHERWISE NOT MUCH DID CHANGE TODAY. PT DOES NEED TO INCREASE HIS FLUID PO INTAKE. V/S WDL, LOBES CLEAR AND DIMINISHED IN THE BASES, EDEMA ON FEET/LOWER LEGS AND UPPER LEGS UNCHANGED SINCE YESTERDAY.
--- NOTE | 2020-10-22 20:00 | NUR ---
FELT TIPPING MACHINE TENDER ROUNDING NOTE. PT UTILIZES CALL LIGHT, REQUESTS FOR BED TO BE STRAIGHTENED UP SO HE CAN GO TO BED. PT STANDS WITH 1PA, REPORTS INCREASED DIFFICULTY STANDING WITH FWW DUE TO HAND PAIN. PT BACK TO BED. PT DENIES FURTHER NEEDS AT THIS TIEM. CALL LIGHT IN REACH. WHITE BOARD UDPATED.
--- NOTE | 2020-10-22 21:50 | NUR ---
ASSESSMENT, VS AND I&O COMPLETED. PT DUE TO VOID. GCS 15, A&O X4. LUNGS CLEAR, HEART TONES IRREGULAR. ABD SOFT, NONTENDER, BOWEL TONES ACTIVE, PT STATES NORMAL. NUMBNESS IN ALL EXTREMITIES, CHRONIC. RUE HAS REDNESS ON OUTER WRIST, EDEMA AND PAIN, MOTOR AND PULSE INTACT. LUE MOTOR AND PULSE INTACT, IV WNL, CDI, FLUSHED WELL. RLE 2+ EDEMA, PULSE AND MOTOR INTACT. LLE DRESSING CDI, 2+ EDEMA, MOTOR AND OULSE INTACT. PT DENIES NEED TO BR AT THIS TIME. CALL LIGHT IN REACH.
--- NOTE | 2020-10-22 22:48 | NUR ---
CALL LIGHT ON, PT UP TO THE TOILET FOR A BM, WILL CALL WHEN READY
--- NOTE | 2020-10-22 22:58 | NUR ---
IN TO ASSIST PT BACK TO BED, PT HAD A SMALL AMT OF MUCUS IN THE TOILET, RN INFORMED, NO FURTHER NEEDS THIS TIME
--- NOTE | 2020-10-22 23:47 | NUR ---
PT UP TO VOID, URINAL AT BEDSIDE, NO FURTHER NEEDS AT THIS TIME
--- NOTE | 2020-10-23 01:16 | NUR ---
PT RESTING IN BED, EYES CLOSED. RR EVEN, UNLABORED. CALL LIGHT IN REACH.
--- NOTE | 2020-10-23 02:07 | NUR ---
IN TO CHECK PTS RM TEMP, PROVIDED PT AN EXTRA BLANKET, NO FURTHER NEEDS
--- NOTE | 2020-10-23 04:10 | NUR ---
PT UP TO THE TOILET, CALLED WHEN READY, DAILY WT TAKEN, PT BACK TO BED, BOOSTED, FRESH ICE WATER, NO FURTHER NEEDS
--- NOTE | 2020-10-23 06:34 | NUR ---
PT BACK FROM TO THE TOILET, SITTING UP AT THE EDGE UF THE BED, WILL CALL WHEN READY
--- NOTE | 2020-10-23 06:53 | NUR ---
PATIENT CALLED TO BE ASSISTED BACK TO BED. PATIENT REMOVED HIS OWN NASAL CANULA. CALL LIGHT IN REACH. PATIENT DENIES ANY FUTHER NEEDS AT THIS TIME.
--- NOTE | 2020-10-23 07:06 | NUR ---
Report from Seble Caro RN. Patient sitting up in bed, watching TV. SPouse at bedside. Denies needs at this time. Call light in reach, bed rails up X2.
--- NOTE | 2020-10-23 10:39 | NUR ---
Patient sitting on edge of bed, visiting with spouse. Assessment completed. No changes in pain in wrist this AM. AM medications administered as prescribed, takes without difficulty. Denies other needs at this time. Call light in reach, bed rails up X2.
--- NOTE | 2020-10-23 11:24 | NUR ---
Working with PT at this time.
--- NOTE | 2020-10-23 11:42 | NUR ---
WHILE PATIENT WAS WORKING WITH PYSICAL THERAPY I CHANGED THE SHEETS ON HIS BED. AND HAD A NICE VISIT WITH HIS . I ALSO ASKED THE PATIENT IF HE WOULD LIKE TO TAKE A SHOWER TODAY AND HE SAID YES. I GOT HIS SHOWER SET UP. I WILL CHECK BACK AND SEE IF HE CHANGED HIS MIND.
--- NOTE | 2020-10-23 13:26 | NUR ---
Calls for assistance. Assist to bathroom. Continent of urine and stool. Returns to bed. O2 per nasal canula administered per patient request.
--- NOTE | 2020-10-23 13:30 | NUR ---
While up to bathroom, small stage 2 ulcer to coccyx noted. size approximately the size of pencil eraser. Allevyn applied. Patient lying on side in bed.
--- NOTE | 2020-10-23 17:43 | NUR ---
Continues to have pain in right wrist. Oral prednisone and allopurinol ordered and given. Edema is improving in right wrist. Ambulates to bathroom today, continent of small stool. Tylenol also given for wrist pain with little to no improvement. Spouse in room visiting intermittently throughout the day. WOrked with PT today.
--- NOTE | 2020-10-23 19:37 | NUR ---
REPORT RECEIVED FROM DAY SHIFT RN. PT LYING IN BED ALERT AND ORIENTED. DENIES NEEDS AT THIS TIME. WHITE BOARD UPDATED. CALL LIGHT IN REACH.
--- NOTE | 2020-10-23 22:36 | NUR ---
EVENING ASSESSMENT COMPLETE. SCHEDULED MEDS ADMINISTERED PER EMAR. PRN PAIN ADMINISTERED FOR PAIN IN LEFT HEEL AND RIGHT ELBOW. RUE REDNESS AND EDEMA NOTED. ALLEVYN PLACED ON RIGHT ELBOW PT REPORTS PAIN FROM LEANING ON ELBOW. LEFT HEEL DRESSING CDI. BLE ELEVATED ON TWO PILLOWS. IV IN LEFT FOREARM NOT PATENT. DC'D WNL. TIP INTACT. WARM BLANKETS PROVIDED. PT DENIES QUESTIONS OR CONCERNS. CALL LIGHT IN REACH.
--- NOTE | 2020-10-24 01:44 | NUR ---
CALL LIGHT ANSWERED. PT UP TO SIDE OF BED WITH SBA AND FWW TO VOID 150 ML. BACK TO BED, AMADA FAIR. INCREASED RESPIRATIONS WITH ACTIVITY. PT REPORTS "I CAN'T GET ENOUGH AIR". SpO2 96% ON RA. HR 80'S. 1L/NC PLACED FOR COMFORT AND PT'S REQUEST. HOB ELEVATED. BEFORE LEAVING THE ROOM PT REPORTS BREATHING IMPROVED.
--- NOTE | 2020-10-24 02:52 | NUR ---
CALL LIGHT ANSWERED. PT REQUESTING OXYGEN TO BE REMOVED. OXYGEN REMOVED. PT DENIES SOB, REPORTS "BREATHING IS GOOD". NO FURTHER NEEDS. CALL LIGHT IN REACH.
--- NOTE | 2020-10-24 03:52 | NUR ---
PATIENT CALLED FOR BATHROOM USE. THIS NURSERY HELPER ENTERED ROOM AND PATIENT STATES "I DON'T KNOW OF I'M GOING TO MAKE IT". 1PA TO BSC WITH FWW. PATIENT WAS INCONTINET OF STOOL BUT HAD SOFT BM IN BSC WELL. LINENS CHANGED. ALLEVYN ON COCYX CHANGED BY DADA TRUJILLO. BACK TO BED. CALL LIGHT IN REACH. PATIENT ON 1L NC. DENIES ANY FUTHER NEEDS.
--- NOTE | 2020-10-24 06:53 | NUR ---
DAILY WEIGHT OBTAINED ON STANDING SCALE. PT WITH POOR ACTIVITY TOLERANCE. C/O SOB WITH MOVEMENT. BACK TO BED. REPOSITIONED WITH PILLOWS. HOB ELEVATED. O2 1L/NC IN PLACE.
--- NOTE | 2020-10-24 07:10 | NUR ---
Report from Carina Workman RN. Patient resting in bed with eyes closed. Respirations even and unlabored. Allowed to rest. Call light in reach, bed rails up X2.
--- NOTE | 2020-10-24 10:26 | NUR ---
Assessment completed. Vitals obtained. Assist to bathroom, continent of urine and stool, returns to sit on edge of bed. AM medications given, takes without difficulty. Pain tolerable at this time. IV lasix ordered, no IV. IV started X1 attempt, tolerated well without complaints of discomfort. Call light in reach.
--- NOTE | 2020-10-24 11:53 | NUR ---
ASSISTED PATIENT TWICE TO BATHROOM. HAD LOOSE BOWELS EACH TIME. AFTER SECOND TIME PATIENT COMPLAINED OF SOB. RN NOTIFIED.
--- NOTE | 2020-10-24 13:21 | NUR ---
Sitting on edge of bed. States he is just not feeling well in general today. Does not want Tylenol for discomfort, states he just wants to feel better. Has had multiple soft/loose stools. Denies other needs. Call light in reach.
--- NOTE | 2020-10-24 15:46 | NUR ---
PATIENT REFUSED BED BATH DUE TO GETTING UP AND DOWN FOR BOWEL MOVEMENTS AND IS EXHAUSTED.
--- NOTE | 2020-10-24 18:50 | NUR ---
PATIENT SAID HE WAS LOOKING FORWARD TO A SHOWER TODAY. BUT HE SAID HE WAS UP TO THE BATHROOM TO MANY TIMES. SO HE IS VERY TIRED. HE IS HOPEING TOMORROW THAT HE COULD TAKE A SHOWER.
--- NOTE | 2020-10-24 20:07 | NUR ---
PT CALLED REQUESTED A BLANKET FOR WHEN HE GOES TO BED. HOB ELEVATED WELL, BUT PT SITTING ON EDGE OF BED. NO OTHER NEEDS AT THIS TIME.
--- NOTE | 2020-10-24 21:48 | NUR ---
On room air, gets nebs tx. lungs clear with exp/insp crackles at bases bilat. Fragile bruised arms healing, allevyn R elbow and coccyx area. SL LW patent. R arm edematous from mid upper arm to 1+ hand. edema 2+ ankles and feet. Alert, cooperative, 1PA/FWW to br, voiding small frequent amounts. On transitional care,
--- NOTE | 2020-10-24 22:15 | NUR ---
CALL LIGHT ANSWERED. PATIENT NEEDED BOOST UP IN BED. ASSISTED PATIENT USING TRAPEZE. NO OTHER NEEDS AT THIS TIME.
--- NOTE | 2020-10-25 00:32 | NUR ---
ANSWERED CALL LIGHT. 1 PA TO USE THE URINAL STANDING. PATIENT USE 1L O2 VIA NC DUE TO HAVING SHORTNESS OF BREATH. PATIENT IS BACK IN BED. CALL LIGHT IN REACH.
--- NOTE | 2020-10-25 01:01 | NUR ---
RESTING, R ARM ELEVATED, HOB ELEVATED O2 1LNC HIS REQUESTS, CONTINUES ON TRANSITIONAL CARE, CALL LIGHT AND FLUIDS AT BEDSIDE. EYES CLOSED, NO DISTRESS
--- NOTE | 2020-10-25 03:39 | NUR ---
Up to br, voided small amonts, backa to bed, sob with exertion noted. sats 93%. daily stand weight 67.2 kg.
--- NOTE | 2020-10-25 04:41 | NUR ---
Pt on transitional care status. Continues to have sobwith exertion, spots checks wnl. uses O2 1L NC for a few minutes and then takes off once he catches his breath. Up to br with 1PA/FWW, voiding small frequent amounts. tolerataing liquids. R arm and hand continues to be edematous, elevated, pt lays on R side. instructed to turns toward left side, cooperative. pitting edema to bilat LE from right above knees to feet, elevated. L heel ulcer covered w coban dressing. daily standing weight 97.2 KG. call light at bedside
--- NOTE | 2020-10-25 07:03 | NUR ---
Pt received a bed bath, bed linen changed. care done by Cadence GARLAND.
--- NOTE | 2020-10-25 07:39 | NUR ---
SHIFT REPORT FROM NURSE JOSEPH. PT IS SLEEPING IN SUPINE POSITION, NC ON. PT'S ARRIVING STAFF LEAVES ROOM. NO CARE NEEDS AT THIS TIME. CALL LIGHT WITHIN REACH.
--- NOTE | 2020-10-25 08:27 | NUR ---
IN ROOM FOR MORNING MEDS AND ASSESSMENT. PT'S IN ROOM. PT CONTINUES TO WEAR 1L NC SPO2 97%. PT SITTING AT EDGE OF BED EATING BREAKFAST; PERFUSION OF FEET POOR PT SITS AT BEDSIDE. LUNG SOUNDS DIM BUT CLEAR. WILL CONFIRM IF LT FOOT BANDAGE NEEDS CHANGED BEFORE D/C. EDEMA STILL PRESENT PITTING BLE AND RT ARM. NO CURRENT NEEDS AT THIS TIME. CALL LIGHT WITHIN REACH.
--- NOTE | 2020-10-25 10:25 | NUR ---
OT STATED SHE WORKED WITH PATIENT AND HE CAN USE A COMMODE TO PUT OVER TOILET, SHOWER CHAIR AND DRESSING STICK. SPOKE WITH PATIENT AND FAMILY. DISCUSSED INSURANCE DOESN'T USUALLY PAY FOR SUCH ITEMS. THEY WOULD LIKE TO TRY [facility] TO BORROW WHAT THEY CAN. BROCHURE GIVEN TO . SHE IS GOING TO CALL THEM AND GO DOWN LATER TODAY. THEY ARE HOPING TO DISCHARGE TOMORROW. SHE STATES THEY GOT HIM A NEW RECLINER TO USE THAT IS POWER AND SHE FEELS HE WILL DO BETTER AT HOME NOW. PATIENT STATES HIS ARM FEELS LITTLE BETTER TODAY. HE IS TIRED AFTER WORKING WITH THERAPY AND IT "ACHES A BIT MORE NOW". I REMINDED HIM TO KEEP IT ELEVATED OFTEN POSSIBLE AND HELPED HIM PUT IT UP ON A PILLOW. WE DISCUSSED POSSIBLE OXYGEN DEPENDING ON QUALIFYING. HE IS A AND SO IS OK WITH GOING THROUGH [facility] [employer] IF NEEDED. WE DISCUSSED POSSIBLE HOME HEALTH TO FOLLOW HIM AT DISCHARGE. THEY ARE FINE WITH THIS. QUESTIONS ANSWERED.
--- NOTE | 2020-10-25 11:31 | NUR ---
ROUNDED ON PT. PT CURRENTLY SLEEPING WITH PT'S IN ROOM. THIS RN CLEANED UP ROOM; VISITED WITH RE: DISCHARGE PLANNING. NO CARE NEEDS AT THIS TIME. CALL LIGHT WITHIN REACH.
--- NOTE | 2020-10-25 13:18 | NUR ---
PT RESTNG IN BED WITH GLOVE ON L HAND. R HAND SWOLLEN, NOT QUEST PAINFUL. HAVING SOME DIFFICULTY FINDING SOMETHING TO EAT, WILL LOOKING FOR GOOD WORTHWHILE OPTIONS. GAVE ENCOURAGEMENT, WILL FOLLOW
--- NOTE | 2020-10-25 13:30 | NUR ---
PATIENT RESTING. NO SOB. REFRESHED WATER PATIENT DOESNT NEED RESTROOM OR ANYTHING ELSE AT THIS TIME
--- NOTE | 2020-10-25 14:30 | NUR ---
IN ROOM FOR PULPWOOD DEALER. PT ASSISTED TO REPOSITION IN BED. PT DENIES FURTHER NEEDS AT THIS TIME. CALL LIGHT WITHIN REACH.
--- NOTE | 2020-10-25 14:57 | NUR ---
CHECKED ON PATIENT. PATIENT STATES HE DOESNT NEED TO USE THE BATHROOM AND IS CURRENTLY OK. WILL CHECK ON HIM AGAIN BETWEEN NEXT ROUNDS
--- NOTE | 2020-10-25 15:35 | NUR ---
IN ROOM FOR SUBASSEMBLY SUPERVISOR; PT SITTING AT BEDSIDE AFTER THERAPY. IV LASIX ADMINISTERED. PT TOLERATED WELL. PT REPOSITIONED INTO BED WITH CALL LIGHT AND URINAL WITHIN REACH.
--- NOTE | 2020-10-25 17:18 | NUR ---
CALL LIGHT ANSWERED; PT UP TO VOID, STOOD AT BEDSIDE WITH URINAL. 100ML URINE OUT. EVENING MEDS ADMIN. PT'S IN ROOM. WATER REFRESHED. NO FURTHER CARE NEEDS AT THIS TIME.
--- NOTE | 2020-10-25 18:15 | NUR ---
CLEARED PT DINNER TRAY. PT ATE APPROX 1/2 OF SOUP; LEFT THE REST. PT IS SLEEPING AT THIS TIME. PT'S HAS GONE HOME FOR THE EVENING. CALL LIGHT WITHIN REACH.
--- NOTE | 2020-10-25 19:28 | NUR ---
REPORT RECEIVED FROM DADA PEREZ. RUBBER GOODS FINISHER IN ROOM ASSISTING pt TO VOID AT SIDE OF BED.
--- NOTE | 2020-10-25 19:35 | NUR ---
CALL LIGHT ANSWERED. 1 PA. ASSISTED USING THE URINAL. PATIENT WAS BACK IN BED. CALL LIGHT IN REACH.
--- NOTE | 2020-10-25 19:40 | NUR ---
CALL LIGHT ANSWERED. pt STATES ACCIDENTLY CALLED. ASSESSMENT COMPLETE. pt DENIES SOB AT THIS TIME. 2L OXYGEN BY NC IN PLACE. LUNG SOUNDS DIM, COARSENESS LLL CLEARS WITH COUGHING. 2+ EDEMA BLE. 1+ RIGHT ARM. pt STATES "ITS GETTING BETTER". DENIES ANY PAIN OR ADDITIONAL NEEDS. CALL LIGHT IN REACH.
--- NOTE | 2020-10-25 20:30 | NUR ---
ANSWERED CALL LIGHT. ASSISTED USING THE URINAL.
--- NOTE | 2020-10-25 21:40 | NUR ---
CALL LIGHT ANSWERED. 1 PA. ASSISTED PATIENT GETTING UP AT BEDSIDE TO USE THE URINAL. PATIENT IS BACK IN BED. V/S AND I&O'S DONE AND RECORDED.
--- NOTE | 2020-10-25 21:43 | NUR ---
PT RESTING IN BED AWAKE. SCHEDULED MEDICATIONS ADMINISTERED. pt DENIES PAIN. DENIES ADDITIONAL NEEDS. CALL LIGHT IN REACH.
--- NOTE | 2020-10-25 22:42 | NUR ---
CALL LIGHT ANSWERD. 1PA WITH FWW AT BEDSIDE TO USE URINAL. BACK TO BED. PATIENT WAS TIRED AFTER STANDING. NEEDED ASSISTANCE IN AND OUT OF BED. PATIENT DENIES ANY FUTHER NEEDS AT THIS TIME. CALL LIGHT IN REACH.
--- NOTE | 2020-10-25 23:30 | NUR ---
PATIENT CALLED NEEDS ASSISTANCE TO USE THE URINAL. FWW. STANDING BY THE BEDSIDE. PATIENT IS BACK IN BED. NOTICED PATIENT HAVE SHORT OF BREATH. PATIENT IS ON 2NC.
--- NOTE | 2020-10-26 | NUR ---
PATIENT CALLED FOR HELP STAND BY THE BEDSIDE TO USE THE URINAL. PATIENT IS BACK IN BED. NO OTHER NEEDS AT THIS TIME.
--- NOTE | 2020-10-26 01:00 | NUR ---
PATIENT CALLED TO RIGO THE URINAL. NO OTHER NEEDS.
--- NOTE | 2020-10-26 01:18 | NUR ---
CHECKED ON pt. RESTING IN BED WITH EYES CLOSED. BREATHING UNLABORED.
--- NOTE | 2020-10-26 02:40 | NUR ---
PATIENT CALLED. UP BY BEDSIDE TO URINATE USING URINAL. NOTICED PATIENT'S SHORT OF BREATH. BACK IN BED. CALL LIGHT IN REACH.
--- NOTE | 2020-10-26 03:43 | NUR ---
PATIENT CALLED. UP TO USE THE URINAL.
--- NOTE | 2020-10-26 04:46 | NUR ---
IN ROOM TO CHECK ON pt. RESTING IN BED AWAKE. SBA WITH FWW TO STAND ON SCALE, DAILY STANDING WEIGHT 65.7 KG. UP TO CHAIR WITH LEGS ELEVATED. PERSONAL SUPPLIES AND CALL LIGHT IN REACH. pt DENIES ADDITIONAL NEEDS AT THIS TIME.
--- NOTE | 2020-10-26 06:14 | NUR ---
CALL LIGHT ANSWERED. 1PA TO STAND WITH WALKER AT SIDE OF BED FOR VOID. pt SOB, 2L OXYGEN BY NC IN PLACE, SPO2 WNL. REPOSITIONED IN BED WITH LEGS ELEVATED, HOB ELEVATED. CALL LIGHT IN REACH.
--- NOTE | 2020-10-26 07:25 | NUR ---
PT SITTING ON EDGE OF BED, PRESENT IN THE ROOM AT TIME OF SHIFT EXCHANGE. COFFEE PROVIDED PT DENIES OTHER NEEDS AGREES TO CALL PRN
--- NOTE | 2020-10-26 09:38 | NUR ---
PT CONTINUES SITTING UP ON THE EDGE OF THE BED VISITING WITH AND EATING BREAKFAST. BREATHING APPEARS EVEN AND UNLABORED AT THIS TIME.
--- NOTE | 2020-10-26 11:13 | NUR ---
PATIENT TIRED AFTER PT WORKING WITH HIM. WATER REFRESHED AND URINAL EMPTIED. CALL LIGHT IN REACH AND IN ROOM. NOTHING ELSE NEEDED AT THIS TIME
--- NOTE | 2020-10-26 13:11 | NUR ---
PATIENT WAS ITCHING ARMS. THIS COMBAT SYSTEMS OPERATOR MINE WARFARE APPLIED LOTION. PATIENT REFUSED BED BATH/ SHOWER STATES HE IS TIRED.
--- NOTE | 2020-10-26 13:37 | NUR ---
AFTER REVIEW OF PATIENT CHART AND DISCUSSION WITH DR. ARREDONDO, NO CHANGE IN PATIENTS PLAN OF CARE AT THIS TIME. WILL CONTINUE TO MONITOR PATIENT DURING HIS HOSPITAL STAY.
--- NOTE | 2020-10-26 15:15 | NUR ---
PT USES CALL LIGHT APPROPRIATELY, UP TO VOID SEVERAL TIMES RETURNS TO RESTING IN BED. UNABLE TO STAND FOR VERY LONG BECOMES FATIGUED HAS TO SIT AGAIN.
--- NOTE | 2020-10-26 15:22 | NUR ---
HELPED PATIENT TO THE BATHROOM AND BACK TO BED. CALL LIGHT IN REACH
--- NOTE | 2020-10-26 17:16 | NUR ---
PT RESTING IN BED WITH EVENING MEAL VISITING WITH FAMILY
--- NOTE | 2020-10-26 19:09 | NUR ---
RECEIVED REPORT FROM DADA MARTÍNEZ. pt RESTING IN BED, CALL LIGHT WITHIN REACH. NO NEEDS AT THIS TIME. WHITEBOARD UPDATED.
--- NOTE | 2020-10-26 20:00 | NUR ---
PT CALLED NEEDED URINAL, ALREADY INCONT BY TIME RN IN ROOM. INCONT CARE PROVIDED.
--- NOTE | 2020-10-26 21:04 | NUR ---
IN TO DO ASSESSMENT. pt RESTING IN BED. RELL RN IN ROOM GIVING NIGHT TIME MEDICATIONS. DRESSING TO LEFT FOOT CDI. ALLEVYN TO RIGHT ARM INTACT AND DRY. DENIES PAIN. RESPIRATIONS REGULAR AND UNLABORED. CALL LIGHT WITHIN REACH.
--- NOTE | 2020-10-26 22:31 | NUR ---
CALL LIGHT ANSWERED. PATIENT STOOD AT BEDSIDE TO USE URINAL. 1PA WITH FWW. BACK TO BED. WARM BLANKET PROVIDED. CALL LIGHT IN REACH. DENIES NAY FUTHER NEEDS AT THIS TIME.
--- NOTE | 2020-10-27 00:05 | NUR ---
PATIENT CALLED. THIS MANAGER FIELD ASKED PATIENT IF HE WILL USE THE URINAL WITHOUT GETTING UP. PATIENT STATED " I NEED TO STAND UP TO URINATE." PATIENT VOIDED 190 ML. PATIENT IS BACK IN BED. DENIES FURTHER NEEDS AT THIS TIME. CALL LIGHT WITHIN REACH.
--- NOTE | 2020-10-27 01:42 | NUR ---
CALL LIGHT ON. pt REQUESTED ASSISTANCE WITH GOWN, TEXTILE SCIENCE TECHNICIAN TO ROOM. pt VOIDED WITH ASSISTANCE TO STAND. RESTING IN BED WITH CALL LIGHT WITHIN REACH.
--- NOTE | 2020-10-27 04:00 | NUR ---
CALL LIGHT ON. 1PA FWW TO VOID AND BACK TO BED. NO REQUESTS AT THIS TIME. CALL LIGHT WITHIN REACH.
--- NOTE | 2020-10-27 06:00 | NUR ---
pt UP FOR DAILY WEIGHT. REPORTED PAIN IN RIGHT ARM, OFFERED PAIN MANAGEMENT OPTIONS. WARM BLANKET PROVIDED. RESTING IN BED. CALL LIGHT WITHIN REACH.
--- NOTE | 2020-10-27 06:57 | NUR ---
CALL LIGHT ON. ASSISTED PATIENT STAND UP TO USE THE URINAL. PATIENT VOIDED 200 ML. PATIENT IS BACK IN BED. CALL LIGHTIN REACH.
--- NOTE | 2020-10-27 07:30 | NUR ---
THIS RN RECEIVED REPORT FROM JOSE GARLAND. PT AWAKE THIS AM, PT REPORTS INCREASED PAIN IN THE RIGHT HAND.
--- NOTE | 2020-10-27 09:48 | NUR ---
THIS RN IN PTS ROOM TO DO MORNING ASSESSMENT AND GIVE MORNING MEDS. PT REPORTS THAT HIS RIGHT HAND HAS INCREASED PAIN IN IT THIS AM. THIS RN OFFERED PT TYLENOL, PT AGREED TO TAKING MED. PT HAS A COUGH BUT APPEARS TO BE HAVING TROUBLE WITH THE STRENGTH TO GET THE COUGH TO BE PRODUCTIVE. PT REPORTS THAT HIS TAILBONE HURTS THIS AM WELL, THIS RN TO TURN PT TO THE SIDE TO ASSIST WITH PRESSURE ON THE AREA. PT HAS NOTHING ELSE TO REPORT THIS AM
--- NOTE | 2020-10-27 09:54 | NUR ---
PATIENT AWAKE IN BED, SAT ON SODE OF BED FOR BREAKFAST. IN ROOM. VITALS AND I&OS CHARTED. THIS ELECTROLESS PLATER OFFERED TO TAKE PATIENT OUTSIDE FOR FRESH AIR AT SOME POINT TODAY, PATIENT AND AGREE. CALL LIGHT IN REACH, NO OTHER NEEDS AT THIS TIME.
--- NOTE | 2020-10-27 11:10 | NUR ---
this rn in to check on pt. pt appears to be resting comfortably with respirations noted and call light within reach. pts at bedside at this time as well
--- NOTE | 2020-10-27 13:00 | NUR ---
PT IN BED WATCHING TV, KERWIN AT BS. SWELLING APPEARS TO HAVE GONE DOWN IN R ARM. PT C/O PAIN STILL. DR MCINTYRE WAS GOING TO ORDER MORE STEROIDS TO HELP. CONTINUED TO ENCOURAGE PT, HAD PRAYER. WILL FOLLOW NEEDED
--- NOTE | 2020-10-27 15:00 | NUR ---
THIS LOGISTICS TECH WHEELED PATIENT DOWNSTAIRS AND OUT TO THE WATERFALL AND POND. PATIENT AND ENJOYED THE FRESH AIR. BACK TO ROOM AND PATIENT NOW SITTING ON SIDE OF BED. FRESH ICE WATER PROVIDED, CALL LIGHT IN REACH, NO OTHER NEEDS AT THIS TIME
--- NOTE | 2020-10-27 19:54 | NUR ---
PATIENT RESTING IN BED AND HAS NO CURRENT CARE NEEDS. CALL LIGHT IS IN REACH.
--- NOTE | 2020-10-27 20:10 | NUR ---
Boosted pt to hob, vs and i/os done, no further assitance needed at this time.
--- NOTE | 2020-10-27 20:30 | NUR ---
PATIENT HAVING 3/10 GENERALIZED PAIN WHICH IS HIS COMFORT ZONE, BUT 1,000MG TYLENOL WAS GIVEN. PATIENT'S BLOOD SUGAR WAS 292 AND IS HERE AND WILL PUT PATIENT BACK ON A SLIDING SCALE. PATIENT READY TO SLEEP. CALL LIGHT IS IN REACH.
--- NOTE | 2020-10-27 21:51 | NUR ---
THIS DISTRICT CUSTOMS DIRECTOR ANSWERED CALL LIGHT. STOOD PT AT BEDSIDE, 1P WITH FWW TO USE URINAL. NO OUTPUT. PT BACK IN BED POSITIONED WITH PILLOWS, HOB AND FOB ELEVATED, HEELS ELEVATED, ARMS ELEVATED. CALL LIGHT WITHIN REACH, BED IN LOWEST POSITION. NO FURTHER ASSISTANCE NEEDED AT THIS TIME.
--- NOTE | 2020-10-27 22:37 | NUR ---
SLIDING SCALE IN THE COMPUTER NOW AND FSBS RECECKED AND IT IS 301 AND 7UNITS SQ INSULIN GIVEN. PATIENT HAS NO OTHER NEEDS AT THIS TIME. CALL LIGHT IS IN REACH.
--- NOTE | 2020-10-28 00:49 | NUR ---
PATIENT RESTING QUIETLY IN LOW FOWLERS POSITION, RESPIRATIONS REGULAR AND EVEN, EYES CLOSED, CALL LIGHT IS IN REACH.
--- NOTE | 2020-10-28 03:23 | NUR ---
PATIENT RESTING QUIETLY IN BED, EYES CLOSED, RESPIRATIONS REGULAR AND EVEN ON 1L/NC, CALL LIGHT IN REACH.
--- NOTE | 2020-10-28 05:02 | NUR ---
PATIENT HAS SLEPT WELL DURING THE NIGHT EXCEPT FOR WHEN HE HAS NEEDED TO VOID. PATIENT USING THE URINAL RIGHT NOW. PATIENT REMAINS ON 1L/NC O2. PATIENT HAS NO OTHER NEEDS AT THIS TIME AND CALL LIGHT IS IN REACH.
--- NOTE | 2020-10-28 05:27 | NUR ---
answered call light, pt stood at bedside to use urinal, standing wt done, and i/o done. No furhter assistance at this time.
--- NOTE | 2020-10-28 07:05 | NUR ---
ANSWERED CALL LIGHT, PT UP TO BR, 1P FWW, VOIDED. PT IS BTB, CALL LIGHT IN REACH, BED IN LOWEST POSITION. PT C/O FEELING "FUNNY". RN NOTIFIED.
--- NOTE | 2020-10-28 07:25 | NUR ---
SHIFT REPORT FROM ABDULAZIZ GARLAND INCLUDED: pt is on 1L NC, more for comfort psychologically than physical need. pt reporting less SOB than last week, but still reports pain in his right wrist which Abdulaziz GARLAND relays as "gout" pain. pt currently resting in bed, eyes closed, breathing even and unlabored, table and call light in reach.
--- NOTE | 2020-10-28 08:30 | NUR ---
ROUNDING pt having breakfast with at bedside at this time. table and call light in reach.
--- NOTE | 2020-10-28 08:50 | NUR ---
Attended MDT meeting with Mr. Miranda and his , along with patient care team members. Mr. Miranda and his had the opportunity to express any concerns they had with all team members present, and the current patient care goals/progress was also reviewed. Mr. Miranda was also given the opporunity to verbalize his patient care wishes with the different team members. Mr. Miranda did verbalize that he felt like the team members were listening to him, and helping him meet his goals so that he could return home. Mr Miranda and his both express gratitude for the care that he has received from the team members.
--- NOTE | 2020-10-28 09:30 | NUR ---
ROUNDING pt in bed, working with physical therapist [place] at this time.
--- NOTE | 2020-10-28 11:00 | NUR ---
ROUNDING pt working with [place] Physical Therapist at this time. call light in reach.
--- NOTE | 2020-10-28 12:15 | NUR ---
MED PASS pt up to bathroom at this time. pt able to void clear yellow urine and amount documented. pt sitting up at edge of bed, table in front of him, having lunch. pts at bedside. pt denies pain and nausea at this time. table and call light within reach.
--- NOTE | 2020-10-28 13:30 | NUR ---
ROUNDING pts leaving for a few hours at this time. pt denies needs. table and call light in reach. pt denies pain, nausea, and SOB at this time.
--- NOTE | 2020-10-28 14:50 | NUR ---
RESPONDING TO CALL LIGHT bathroom call light alarming at this time. student nurse helping pt back to bed and working with pt at this time. call light turned off. pt and SN report they are doing well and have no needs at this time. call light in reach. pt returned safely to bed.
--- NOTE | 2020-10-28 14:58 | NUR ---
PT used walker to get to restroom. Output documented. PT required some assistance standing and postioning in bed. PT is drowsy.
--- NOTE | 2020-10-28 15:11 | NUR ---
ASSESSED PT'S HEART, LUNG AND BOWEL SOUNDS. PT REPORTS NO PAIN OTHER THAN MILD PAIN AT IV SITE. PT REPORTS NO CHEST PAIN, NO SOB AND MINIMAL WRIST PAIN. PATIENT IS ALERT AND ORIENTED TO PLACE, TIME AND PEOPLE.
--- NOTE | 2020-10-28 15:53 | NUR ---
ORDERED PATIENT'S DINNER AND BREAKFAST.
--- NOTE | 2020-10-28 19:48 | NUR ---
RECEIVED REPORT FROM DAY SHIFT RN. PATIENT IS RESTING IN BED WITH EYES CLOSED, RR 17. CALL LIGHT IN REACH.
--- NOTE | 2020-10-28 20:59 | NUR ---
IN ROOM TO CO-SIGN INSULIN. PRIMARY RN DI IN ROOM.
--- NOTE | 2020-10-28 21:36 | NUR ---
ASSEMENT COMPLTED. VITALS TAKEN AND RECORDED. PATIENT STOOD AT BEDISED AND WAS ABLE TO USE URINAL WITHOUT ASSISTANCE. PATIENT IS BACK IN BED RESTING. INTAKE AND OUPUT RECORDED. PATIENT DENIES ANY PAIN. BILAT LOW EXT ELEVATED AND RIGHT ARM ELEVATED. EDEMA NOTED IN BILAT LOW EXT AND RIGHT ARM. DRESSING INTACT ON FOOT. ALLEVYN ON COCYX IS C/D/I. PATIENTS EVENING MEDICATIONS GIVEN PER ORDER. WARM BALNKET AND FRESH WATER PROVIDED. NO FURTHER NEEDS NOTED. PATIENT REMAINS ON RA. CALL LIGHT AND BELONGINGS WITHIN REACH.
--- NOTE | 2020-10-28 23:29 | NUR ---
PATIENT IS RESTING IN BED WITH EYES CLOSED, RR 17. CALL LIGHT IN REACH.
--- NOTE | 2020-10-29 00:12 | NUR ---
ASSISTED PATIENT TO THE RESTROOM A SBA W/FWW. PATIENT HAD BM AND WAS ABLE TO VOID. PATIENT IS BACK IN BED RESTING. PATIENT DENIES ANY FURTHER NEEDS. BELONGINGS AND CALL LIGHT ARE WITHIN REACH.
--- NOTE | 2020-10-29 02:05 | NUR ---
PATIENT IS RESTING IN BED WITH EYES CLOSED, RR 16. CALL LIGHT IN REACH.
--- NOTE | 2020-10-29 03:11 | NUR ---
PATIENT IS RESTING IN BED. PATIENT DENIES ANY NEEDS. WARM BLANKET PROVIDED. CALL LIGHT IN REACH.
--- NOTE | 2020-10-29 04:51 | NUR ---
PATIENT ASSISTED TO STAND AT THE BEDISDE AND USE URINAL BY TRAIN STATION AGENT. PATIENT IS NOW BACK IN BED RESTING. NO NEEDS NOTED. CALL LIGHT IN REACH.
--- NOTE | 2020-10-29 06:13 | NUR ---
STANDING DW TAKEN AND RECORDED. PATIENT IS BACK IN BED RESTING. COFFEE PROVIDED PER REQUEST.
--- NOTE | 2020-10-29 07:21 | NUR ---
SHIFT REPORT FROM DI GARLAND INCLUDED: pt had an uneventful evening. up to the bathroom a few times with SBA and FWW. pt still alert and oriented during cares. pts right wrist appears slightly less edematous this morning. pt currently on RA, breathing even and unlabored. pt denies pain and nausea at this time. pt sitting up to table at bedside, call light within reach.
--- NOTE | 2020-10-29 08:29 | NUR ---
Took patients glucose reading before breakfeast. No insulin required this morning. Assisted PT with walker to restroom. Output documented. PT has good energy level this morning.
--- NOTE | 2020-10-29 08:45 | NUR ---
ASSESSMENT pt assessment complete at this time, VSS. pt reports 3/10 pain in right wrist. swelling and redness in right hand/arm seems very slightly less than yesterday. pts facial skin tone and color appears better than the last few days. pt has been maintaining o2sats >90% on RA through the evening. pt reports that he feels "alright" but that he thinks he feels the "same as yesterday". pt sitting up to bedside visiting with at this time. pt denies further needs at this time. table and call light within reach.
--- NOTE | 2020-10-29 09:00 | NUR ---
UPDATE RECVD IN AM MEETING. AWAITING DR. MCINTYRE REVIEW FOR FURTHER HOME HEALTH ORDERS. WILL CONTINUE TO MONITOR.
--- NOTE | 2020-10-29 09:30 | NUR ---
ROUNDING pt working with respiratory therapy at this time. call light in reach.
--- NOTE | 2020-10-29 10:09 | NUR ---
PT refused stool softner medication becuase he has had two BM's since last night. The second BM was watery and loose. PT has been resting for the majority of the morning.
--- NOTE | 2020-10-29 10:15 | NUR ---
PER [facility] THEY HAVE NO OPEN HOME HEALTH APPOINTMENTS AT THIS TIME.
--- NOTE | 2020-10-29 10:33 | NUR ---
ROUNDING pt working with student nurse at this time. call light in reach.
--- NOTE | 2020-10-29 11:30 | NUR ---
ROUNDING pt meeting with MD at this time.
--- NOTE | 2020-10-29 12:30 | NUR ---
MED PASS pt able to take meds without difficulty, as ordered. pt denies nausea and reports minimal tolerable pain in right wrist. left foot dressing still CDI. pt denies SOB and skin color looks good. pt denies further needs at this time. table and call light in reach.
--- NOTE | 2020-10-29 12:33 | NUR ---
PT LAYING IN BED, TRYING TO WAKE UP. KERWIN AT BS, EVER VIGILANT. PT RATED HIS PAIN IN R ARM AT 5, WOULD LIKE SOMETHING TO HELP. SWELLING HAS GONE DOWN, HE IS JUST NAPPED ACCORDING TO KERWIN. SN IN WITH INSTRUCTOR, TO DO VS. GAVE A BLESSING, WILL FOLLOW
--- NOTE | 2020-10-29 13:45 | NUR ---
ROUNDING pt in bed, visiting with at this time. pt reports minimal tolerable pain in his right wrist, denies other needs at this time. pt has table and call light in reach.
--- NOTE | 2020-10-29 14:18 | NUR ---
ASSESSMENT pt assessment complete. pt skin tone and color look healthy at this time. pt denies pain, nausea, and SOB at this time. pt denies further needs at this time. table and call light in reach. left for home.
--- NOTE | 2020-10-29 14:24 | NUR ---
REFERRAL FOR HALFWAY, PT AND OT SENT TO [facility] FOR REVIEW.
--- NOTE | 2020-10-29 15:42 | NUR ---
ROUNDING pt informed that imaging was on its way to do his ultrasound of his arm, and that when they're done, if there was time the EMAIL MARKETING MANAGER [place] pt verbalized understanding. pt denies further needs at this time. table and call light within reach.
--- NOTE | 2020-10-29 15:54 | NUR ---
Called and confirmed with Rina at [facility], she did receive the chart.
--- NOTE | 2020-10-29 16:22 | NUR ---
ROUNDING pt currently working with imaging at this time. call light in reach.
--- NOTE | 2020-10-29 17:10 | NUR ---
CBG + MED PASS pt CBG was 261, 3 units insulin given per sliding scale orders. pt able to take all meds without difficulty. pt denies further needs at this time. table and call light in reach, pt having dinner with at this time.
--- NOTE | 2020-10-29 19:05 | NUR ---
SHIFT REPORT RECEIVED FROM DAYSHIFT DADA ROWLAND AT BEDSIDE, pt AWAKE AND RESTING IN BED, ON RA. RR EVEN AND UNLABORED, NO DISTRESS NOTED, pt APPEARS COMFORTABLE. CALL LIGHT IN REACH.
--- NOTE | 2020-10-29 19:30 | NUR ---
CALLED ABOUT ULTRASOUND Dr Jackson called about pts ultrasound results at this time. No new orders at this time.
--- NOTE | 2020-10-29 21:00 | NUR ---
ASSESSMENT COMPLETE, SCHEDULED MEDS GIVEN (SEE EMAR). pt A/O, VSS. pt ON RA, LUNG SOUNDS DIMINISHED. DRESSING TO LLE C/D/I, UNABLE TO ASSESS SKIN D/T CURRENT DRESSING, WILL CONTINUE TO MONITOR. UNABLE TO ASSESS LEFT PEDAL PULSE D/T DRESSING, CAP REFILL WNL. SKIN PINK IN COLOR, REPORTS CHRONIC NUMBNESS IN HANDS AND FEET. NO FURTHER NEEDS, CALL LIGHT IN REACH.
--- NOTE | 2020-10-29 23:35 | NUR ---
IN TO GET PT UP AT THE BEDSIDE FOR THE URINAL, 250MLs OUT NO FURHTER NEEDS
--- NOTE | 2020-10-30 00:12 | NUR ---
pt AWAKE AND RESTING IN BED, RR EVEN AND UNLABORED. NO DISTRESS NOTED, CALL LIGHT IN REACH. pt DENIES NEEDS OR CONCERNS.
--- NOTE | 2020-10-30 03:00 | NUR ---
ROUNDED ON pt, pt RESTING IN BED. RR EVEN AND UNLABORED. RUE ASSESSED FOR CHANGES. GENERALIZED EDEMA REMAINS NOTED, MORE SO NEAR THE RIGHT INNER ELBOW AND FINGERS/WRIST. NO CHANGE SINCE START OF SHIFT. SKIN WARM TO THE TOUCH AT THE ELBOW, COOL TO NORMAL TEMPERATURE IN REMAINING LOCATIONS. CAP REFILL WNL, pt HAS MITTENS IN PLACE D/T HX OF POOR CIRCULATION. pt ALSO HAS HX OF GOUT. WILL CONTINUE TO MONITOR. NO NEEDS VERBALIZED, CALL LIGHT IN REACH.
--- NOTE | 2020-10-30 04:00 | NUR ---
PT CALLED TO USE THE URINAL, STANDING WEIGHT TAKEN AND I&Os DONE, PT BACK TO BED AT THIS TIME
--- NOTE | 2020-10-30 06:00 | NUR ---
pt RESTING IN BED WITH EYES CLOSED, RR EVEN AND UNLABORED. NO DISTRESS NOTED, CALL LIGHT IN REACH.
--- NOTE | 2020-10-30 07:05 | NUR ---
IN TO GET PT UP TO VOID, 1PA FWW AT BEDSIDE WITH URINAL, HERE FOR THE DAY, PT AND PROVIDED FRESH COFFEE AT THIS TIME PT REQUESTING 1L OF O2, WHIZZER HAND INFORMED, NO FURTHER NEEDS
--- NOTE | 2020-10-30 07:29 | NUR ---
SHIFT REPORT FROM KRISTAN GARLAND INCLUDED: pt was able to rest well most of the evening. pt still maintaining o2sats >90% on RA. pts VSS through the night. pt still 1PA+FWW to bathroom. pt currently getting up to bathroom with [employer] FIELD COORDINATOR at this time. call light in reach.
--- NOTE | 2020-10-30 07:46 | NUR ---
CBG (HYPOGLYCEMIC) pts CBG was 58 when the ANTENNA SPECIALIST checked it this morning. pt was immediately given orange juice and we included pancake with syrup in his breakfast tray. pts CBG will be checked again in 15mins. pt alert, oriented, no signs of diaphoresis or nausea. pt denies dizziness at this time. pt currently in bed, sitting up, finishing his orange juice. table and call light in reach.
--- NOTE | 2020-10-30 07:48 | NUR ---
patient awake in bed, in room. glucose is 58, rn notified, will recheck
--- NOTE | 2020-10-30 07:50 | NUR ---
MED PASS + ASSESSMENT + SECOND CBG pt was hypoglycemic this morning. 15mins following his reading of 58, after the orange juice, his CBG is now 85. pt showing no s/sx of hypoglycemia at this time. pt assessment complete, VSS. pt lungs clear, diminished in the bases. pt reports 3/10 pain and denies nausea and SOB. pt o2sats >96% on RA at this time. pt breathing even and unlabored. pts left foot dressing CDI, pt denies pain to the area, numbness & tingling at baseline here as well. pts capillary refill a sluggish 3 seconds. pts right arm slightly red, but no more than previous shifts, and +1 edema in inner elbow area and wrist. still has 2+ pitting in right foot and 1+ pitting in both lower legs. pt currently denies further needs at this time, sitting up to bedside having breakfast, table and call light in reach, at bedside.
--- NOTE | 2020-10-30 08:30 | NUR ---
THIRD CBG DONE 3rd CBG done by charge nurse, CBG was 113. pt showing no s/sx of hypoglycemia. pt denies needs at this time. table and call light in reach.
--- NOTE | 2020-10-30 09:30 | NUR ---
ROUNDING pt in bed, visiting with at this time. pt denies nausea and SOB, pt reports 3/10 tolerable pain in his right arm at this time. pt denies further needs, table and call light within reach.
[2020-10-30] MEDS ORDERED: PREDNISONE10 MG PO (10:00)
[2020-10-30] MEDS ORDERED: PREDNISONE5 MG PO (10:00)
[2020-10-30] MEDS ORDERED: POTASSIUM CHLO20 ME1 PO (10:02)
[2020-10-30] MEDS ORDERED: PANTOPRAZOLE SO40 MG PO (10:02)
[2020-10-30] MEDS ORDERED: LISINOPRIL2.5 MG PO (10:19)
[2020-10-30] MEDS ORDERED: METOPROLOL SUC100 MG PO (10:19)
--- NOTE | 2020-10-30 10:27 | NUR ---
DISCHARGE VITALS AND I&OS CHARTED. IV REMOVED PER RN REQUEST. OUT OF THE ROOM FOR ERRANDS, CALL LIGHT IN REACH
--- NOTE | 2020-10-30 10:30 | NUR ---
ROUNDING pt working with SPECIALIST ICU at this time. VSS, IV site DCd by SPECIALIST ICU at this time. pt anticipating DC once returns for transport. pt in bed, table and call light in reach.
--- NOTE | 2020-10-30 11:30 | NUR ---
ROUNDING + SPOT CHECKED O2SATS pt sitting up in bed, using his I.S. pt able to demonstrate proper use of the I.S. to 2000 x10. pts o2sats 93% on RA at this time. pt denies further needs. table and call light within reach.
[2020-10-30] MEDS ORDERED: WARFARIN SODIUM3 MG PO (11:47)
== END 2020-10-30 12:40 | disposition home health service (06) | DRG 622 ==
LOC: MS 10:05
PROVIDERS: ADMIT Internal Medicine; ATTEND Internal Medicine
PROC: 0JBR0ZZ Excision of Left Foot Subcutaneous Tissue and Fascia, Open Approach (ICD-10-PCS; principal; 2020-10-10)
PROC: 0JBR0ZZ Excision of Left Foot Subcutaneous Tissue and Fascia, Open Approach (ICD-10-PCS; 2020-10-20)
DX: E11.621 Type 2 diabetes mellitus with foot ulcer (principal); I50.23 Acute on chronic systolic (congestive) heart failure; L97.422 Non-pressure chronic ulcer of left heel and midfoot with fat layer exposed; Z20.822 Contact with and (suspected) exposure to COVID-19; E11.51 Type 2 diabetes mellitus with diabetic peripheral angiopathy without gangrene; I25.10 Atherosclerotic heart disease of native coronary artery without angina pectoris; J44.9 Chronic obstructive pulmonary disease, unspecified; I48.0 Paroxysmal atrial fibrillation; E11.22 Type 2 diabetes mellitus with diabetic chronic kidney disease; N18.9 Chronic kidney disease, unspecified; I27.20 Pulmonary hypertension, unspecified; N17.9 Acute kidney failure, unspecified; I82.621 Acute embolism and thrombosis of deep veins of right upper extremity; M10.9 Gout, unspecified; Z88.8 Allergy status to other drugs, medicaments and biological substances; Z88.1 Allergy status to other antibiotic agents; Z79.899 Other long term (current) drug therapy; Z79.01 Long term (current) use of anticoagulants; Z79.84 Long term (current) use of oral hypoglycemic drugs; Z79.51 Long term (current) use of inhaled steroids; Z79.52 Long term (current) use of systemic steroids
CPT/HCPCS: 36415; 71046; 73130; 80048; 80069; 80162; 83735; 83880; 84550; 85025; 85610; 93306; 93971; 94640; 94760; 97032; 97110; 97116; 97140; 97162; 97165; 97530; 97535; C9803; J1815; J1940; J2920; J3475; J7512; U0003

== ENCOUNTER 2020-10-31 02:28 | Observation (INO) | payer MEDICARE, OTHER ==
[~2020-10-31] VITALS: Ht 170.2 cm; Wt 58.3 kg
[~2020-10-31 02:28] MED LIST changes: +LISINOPRIL2.5 MG PO; +METOPROLOL SUC100 MG PO; +PANTOPRAZOLE SO40 MG PO; +POTASSIUM CHLO20 ME1 PO; +WARFARIN SODIUM3 MG PO
--- OUTSIDE RECORDS SUMMARY | 2020-10-31 02:32 | XMS ---
PreManage Notification: ONEIDA YANEZ Security Measurement Superintendent Events No recent Security Events currently on file CRITERIA MET - History of Sepsis Dx - [facility] - 2 Visits in 30 Days CARE PROVIDERS DANNI GO [facility] 09/01/2020-Current [facility]: [phone] [facility] PHONE: [phone] Phan has no Care Guidelines for this patient. Jay VISIT COUNT (12 MO.) [address] [place] [address] TOTAL 4 NOTE: Visits indicate total known visits. ED/UCC VISIT TRACKING (12 MO.) 10/31/2020 02:29 [facility] TYPE: Emergency COMPLAINT: - WEAKNESS 10/02/2020 04:33 [facility] TYPE: Emergency COMPLAINT: - WEAKNESS 09/15/2020 14:53 [facility] TYPE: Emergency COMPLAINT: - WEAKNESS, L LEG PAIN DIAGNOSES: - Effusion, left knee - Type 2 diabetes mellitus without complications - Gout, unspecified - Essential (primary) hypertension - Pain in left knee - Chronic obstructive pulmonary disease, unspecified - Hyperlipidemia, unspecified - Atherosclerotic heart disease of [place] coronary artery without angina pectoris - Non-pressure chronic ulcer of other part of left foot with unspecified severity - Allergy status to other drugs, medicaments and biological substances - Personal history of nicotine dependence - intermodal dispatcher (current) use of anticoagulants - Allergy status to analgesic agent - halfway (current) use of systemic steroids - Allergy status to other antibiotic agents - Unspecified atrial fibrillation - Other senior living (current) drug therapy 08/31/2020 12:17 [facility] TYPE: Emergency COMPLAINT: - COPD INPATIENT VISIT TRACKING (12 MO.) 10/09/2020 10:05 [facility] TYPE: Medical Surgical COMPLAINT: - TC DIABETIC WOUND 10/04/2020 14:07 [facility] TYPE: [facility] COMPLAINT: - DIABETIC WOUND DIAGNOSES: - Paroxysmal atrial fibrillation - intermodal dispatcher (current) use of systemic steroids - Cellulitis of left lower limb - Acute pyelonephritis - Type 2 diabetes mellitus with diabetic peripheral angiopathy without gangrene - Cellulitis of right lower limb - Adverse effect of cephalosporins and other beta-lactam antibiotics, initial encounter - Other termite control servicer (current) drug therapy - Allergy status to other antibiotic agents - Chronic obstructive pulmonary disease, unspecified - Personal history of nicotine dependence - Chronic kidney disease, unspecified - Atherosclerotic heart disease of [place] coronary artery without angina pectoris - Acute kidney failure, unspecified - Type 2 diabetes mellitus with diabetic chronic kidney disease - Allergy status to other drugs, medicaments and biological substances - Unspecified open wound, left foot, initial encounter [facility] COMPLAINT: - GOUTY ARTHRITIS [...] disease, unspecified 13. Atherosclerotic heart disease of [place] coronary artery without angina pectoris 14. Tachycardia, [...] of both mitral and tricuspid valves - intermodal dispatcher (current) use of oral hypoglycemic drugs - Chronic kidney disease, unspecified - Adverse effect of glucocorticoids and synthetic analogues, initial encounter - Type 2 diabetes mellitus with hyperglycemia - intermodal dispatcher (current) use of systemic steroids - Type 2 diabetes mellitus with diabetic chronic kidney disease - Acute respiratory failure with hypoxia - intermodal dispatcher (current) use of inhaled steroids - Atherosclerotic heart disease of [place] coronary artery without angina pectoris - Type 2 diabetes mellitus with hypoglycemia without coma - Acute kidney failure, unspecified - Myocardial infarction type 2 - Chronic obstructive pulmonary disease with (acute) exacerbation - halfway (current) use of anticoagulants - Cardiomyopathy, unspecified - Other senior living (current) drug therapy - Unspecified place in hospital as the place of occurrence of the external cause - intermodal dispatcher (current) use of antithrombotics/antiplatelets - Adverse effect of insulin and oral hypoglycemic [antidiabetic] drugs, initial encounter [email or web address]
--- NOTE | 2020-10-31 04:32 | NUR ---
PATIENT ARRIVED VIA STRETCHER WITH DADA HALL FROM THE ER. TWO PERSON TRANSFER FROM STRETCHER TO THE HOSPITAL BED. PATIENT'S COCCYX AND BUTTOCK AREA PHOTOGRAPHED FOR REDNESS OF THE BUTTOCKES TO STAGE 3 ULCER ON THE COCCYX. ALLEVYN COCCYX DRESSING PLACED ON THE PATIENT. PATIENT'S LUNGS ARE CLEAR AND DIM THROUGHOUT. BOWEL TONES ACTIVE. RIGHT ARM IS SWOLLEN AND RED AND ELEVATED ON A PILLOW. HEEL PROTECTORS PLACED ON BOTH FEET AND LEFT FOOT STILL HAS DRESSING CDI FROM BEING CHANGED BY YESTERDAY. JESS JAIMES AND SECURITY TRAINERDADA TAYLOR REMAINING IN THE ROOM. CALL LIGHT IS IN REACH.
--- NOTE | 2020-10-31 04:40 | NUR ---
in to assist rns with pt vitals, turning pt and removing transfer linens, ice water filled and bed side table set up, call light in reach, heading home at this time, no further needs
--- NOTE | 2020-10-31 05:10 | NUR ---
ASSISTED IN TAKING PICTURES AND GETTING PT SETTLED INTO ROOM. PT JUST DC'D HOME FROM TRANSITIONAL CARE YESTERDAY. PT'S OK WITH TAKING HIS HX FROM MEDICAL RECORD. SHE IS GOING HOME TO GET SOME SLEEP. PT DENIES FURTHER NEEDS AT THIS TIME. CALL LIGHT IS CLOSE.
--- NOTE | 2020-10-31 06:30 | NUR ---
PATIENT RESTING QUIETLY, EYES CLOSED, RESPIRATIONS REGULAR AND EVEN, CALL LIGHT IS IN REACH.
--- NOTE | 2020-10-31 07:05 | NUR ---
2PA PT TO STAND AT THE BEDSIDE WITH THE URINAL, PT HAS TENDER RT ARM, BACK TO BED AT THIS TIME, NO FURTHER NEEDS
--- NOTE | 2020-10-31 07:24 | NUR ---
PT RESTING EYES CLOSED AT TIME OF SHIFT EXCHANGE, LEFT UNDISTURBED
--- NOTE | 2020-10-31 08:45 | NUR ---
PATIENT UP TO STANDING AT EDGE OF BED, 1PA FWW. PATIENT TOOK STEPS TOWARDS HEAD OF BED, SBA. PATIENT NOW IN BED RESTING. CALL LIGHT IN REACH. NO FURTHER NEEDS AT THIS TIME.
--- NOTE | 2020-10-31 09:18 | NUR ---
PT RESTING IN BED WAITING FOR THE DOCTOR. PT APPEARS TO HAVE UNREALISTIC GOALS R/T TO HEALTH CONDITION. HE INDICATES THE DOCTOR SHOULD "FIX HIM" HE DOESN'T SEEM TO CONSIDER HE MAY NOT BE FIXABLE. RIGHT ARM IS ELEVATED ON A PILLOW PT DOZING OFF AND ON.
--- NOTE | 2020-10-31 09:35 | NUR ---
PATIENT UP TO STANDING AT EDGE OF BED TO USE URINAL, 1PA FWW. PATIENT NOW SITTING ON EDGE OF BED LOOKING OUTSIDE. CALL LIGHT IN REACH. NO FURTHER NEEDS AT THIS TIME.
--- NOTE | 2020-10-31 10:18 | NUR ---
PATIENT SITITNG ON SIDE OF BED, IN CHAIR. VITALS AND I&OS CHARTED.
--- NOTE | 2020-10-31 11:04 | NUR ---
PT SITTING UP ON EDGE OF THE BED IS PRESENT. DR MCINTYRE WAS IN EARLIER PT AGREES ALL QUESTIONS WERE ANSWERED. HE AND AGREE REHAB WILL BE NECC FOR DC. PT DENIES NEEDS AT THIS TIME
--- NOTE | 2020-10-31 13:16 | NUR ---
Call light answered, pt states dribbling urine onto sheets. Linen changed and pt repositioned, pt is weak but able to stand and sit back down on edge of bed. States no further needs, call light in reach.
--- NOTE | 2020-10-31 14:22 | NUR ---
PATIENT SITTING AT SIDE OF BED. VITALS AND I&OS CHARTED. GARBAGE EMPTIED. PATIENT HAS NO OUTPUT FOR LAST FEW HOURS, RN NOTIFIED. DIET KENNETH PROVIDED, WILL CHECK BACK WITH PATIENT TO SEE IF HE CAN VOID.
--- NOTE | 2020-10-31 14:40 | NUR ---
PT SITTING ON EDGE OF BED VISITING WITH . ASSISTED TO STAND TO USE THE URINAL, RETURNS TO SITTING ON THE BED. DENIES NEEDS AT THIS TIME. RIGHT HAND ELEVATED ON PILLOWS
--- NOTE | 2020-10-31 15:37 | NUR ---
2 PA TO REPOSITION PATIENT BACK IN BED. DRAW SHEET REPLACED, CALL LIGHT IN REACH
--- NOTE | 2020-10-31 16:25 | NUR ---
PT ASSISTED TO STAND AND USE URINAL RETURNS TO RESTING IN BED, PRESENT IN ROOM
--- NOTE | 2020-10-31 18:03 | NUR ---
PATIENT VERY WEAK, UNABLE TO GRAB WALKER WITH RIGHT HAND. 2 PA WITH WALKER AND GAIT BELT, MOVED TO TOP OF BED. CALL LIGHT IN REACH
--- NOTE | 2020-10-31 20:02 | NUR ---
PATIENT SLEEPING WHEN THIS RN CAME IN. PATIENT VERBALIZED THAT HIS RIGHT ARM IS FEELING MUCH MUCH BETTER AFTER HIS LAST PAIN MEDICATION. PATIENT IS DROWSY. VS WNL. PATIENT TURNED TO HIS RIGHT SIDE. CALL LIGHT IS IN REACH AND RT WILL BE IN TO DO NEBS.
--- NOTE | 2020-10-31 22:42 | NUR ---
CALL LIGHT ANSWERED. ASSISTED TO USE URINAL IN BED. pt INCONTINENT OR URINE. ATTENDS CHANGED. pt WEAK, UNABLE TO RESPOSITION SELF HIGHER IN BED. TWO RN ASSIST TO BOOST PATIENT. PILLOWS PLACED UNDER RIGHT HIP, RIGHT ARM ELEVATED, LEGS ELEVATED ON PILLOW. CALL LIGHT IN REACH.
--- NOTE | 2020-10-31 23:07 | NUR ---
PATIENT COMPLAINING OF 5/10 RIGHT ARM PAIN. ORAL PAIN MEDICATION GIVEN. CALL LIGHT IS IN REACH.
--- NOTE | 2020-11-01 00:21 | NUR ---
PATIENT RESTING QUIETLY IN LOW FOWLERS POSITION. RESPIRATIONS ARE REGULAR AND EVEN, EYES CLOSED, CALL LIGHT IS IN REACH.
--- NOTE | 2020-11-01 00:59 | NUR ---
PATIENT TURNED BACK TO HIS BACK. PATIENT HAS NO OTHER CARE NEEDS AT THIS TIME. CALL LIGHT IS IN REACH.
--- NOTE | 2020-11-01 02:05 | NUR ---
PATIENT 2AM ASSESSMENT COMPLETE. PATIENT STATED,"MY ARM DOES NOT HURT RIGHT NO." CLARIFIED WITH PATIENT THAT IT WAS THE RIGHT ARM WE ARE REFERRING TO. VS STABLE. PATIET TURNED TO HIS RIGHT SIDE. PATIENT'S ATTENDS ARE DRY. CALL LIGHT IS IN REACH.
--- NOTE | 2020-11-01 03:32 | NUR ---
PATIENT RESTING QUIETLY IN SEMI-FOWLERS POSITION, EYES CLOSED, REPIRATIONS REGULAR AND EVEN, CALL LIGHT IN REACH.
--- NOTE | 2020-11-01 04:44 | NUR ---
IN TO GET VITALS, PT VOIDING WITH URINAL THIS MORNING, ICE WATER FILLED, NO FURTHER NEEDS AT THIS TIME
--- NOTE | 2020-11-01 04:55 | NUR ---
PATIENT REPOSITIONED TO HIS BACK. AM ASSESSMENT COMPLETE. VS STABLE. PATIENT HAS VOIDED 3 TIMES THIS SHIFT AND HAD ONE LARGE INCONTINENCE WHEN BRIEF WAS CHANGED. PATIENT HAS ONLY HAD PAIN MEDICATION ONCE THIS SHIFT AND IT HAS RELIEVED HIS PAIN FOR THE REST OF THE SHIFT SO FAR. PATIENT'S ALLEVYN TO THE COCCYX REMAINS DRY AND IN PLACE. PATIENT HAS BEEN DROWSY ALL NIGHT, BUT HAS BEEN ORIENTED. PATIENT'S WATER GLAS REFILLED AND CALL LIGHT IS IN REACH.
--- NOTE | 2020-11-01 08:13 | NUR ---
pt sitting up in bed watching tv agrees he is comfortable. npo at this time for test.
--- NOTE | 2020-11-01 09:00 | NUR ---
Spoke with Harriett and Nestor. Both feel pt will need placement. Harriett was unable to assist him on and off of toilet over the weekend. Pt has declined and cont. deconditioned. Reviewed SNF, [facility], caregivers in the home. Will check for placement at [facility], as pt would prefer to remain in town.
--- NOTE | 2020-11-01 09:59 | NUR ---
PATIENT IN BED RESTING WITH EYES CLOSED. DR IN ROOM. VITALS AND I&O'S CHARTED. AM CARE DONE. CALL LIGHT IN REACH. NO FURTHER NEEDS AT THIS TIME.
--- NOTE | 2020-11-01 11:13 | NUR ---
PT RESTING IN BED DOZING, PRESENT IN THE ROOM. CONTINUES NPO IN ANTICIPATION OF ULTRA SOUND LATER. PT AGREES RIGHT ARM PAIN IS WELL CONTROLLED AT THIS TIME, HE DENIES ANY CURRENT NEEDS.
--- NOTE | 2020-11-01 12:21 | NUR ---
Face sheet, H&P, DC summary from last visit, covid test, medication list faxed to [facility].
--- NOTE | 2020-11-01 13:00 | NUR ---
U/S COMPLETED, NOON MEAL ORDERED. MEDICATIONS HELD THIS A/M DUE TO TEST ADMINISTERED NOW. PT IS PRESENT.
--- NOTE | 2020-11-01 13:42 | NUR ---
PATIENT HAD LARGE INC EPISODE. NANCIE CARE DONE. PATIENT TO CHAIR FROM BED, 2PA FWW PIVOT. LINENS CHANGED. IN ROOM. VITALS AND I&O'S CHARTED. CALL LIGHT IN REACH. NO FURTHER NEEDS AT THIS TIME.
--- NOTE | 2020-11-01 13:56 | NUR ---
PT ALERT, ORIENTED AND VISITING WITH KERWIN AT BS. PT SEEMS TO CONTINUE TO DECLINE, BUT STAYS CHEERFUL. KERWIN IS ALWAYS BY HIS SIDE. GAVE PT A P.SHAWL. HE NEEDED TO URINATE. WILL CHECK BACK. GAVE VIKTOR
--- NOTE | 2020-11-01 15:33 | NUR ---
PT UP IN THE CHAIR WATCHING TV CALL LIGHT IN LAP
--- NOTE | 2020-11-01 15:55 | NUR ---
pt requests return to chair assisted to toilet and change then to rest in the bed
--- NOTE | 2020-11-01 18:21 | NUR ---
PATIENT BACK TO BED FROM CHAIR, 2PA FWW GAITBELT. VITALS AND I&O'S CHARTED. CALL LIGHT IN REACH. NO FURTHER NEEDS AT THIS TIME.
--- NOTE | 2020-11-01 19:33 | NUR ---
REPORT RECEIVED FROM DADA MARTÍNEZ. pt RESTING IN BED WITH EYES CLOSED. BREATHING EQUAL AND UNLABORED. VERBAL ORDER FROM DR. GALLEGO TO CONTINUE FLUID RESTRICTION. DIETARY ORDERS UPDATED.
--- NOTE | 2020-11-01 21:52 | NUR ---
PT ASSESSMENT COMPLETE. pt DROWSY. AWAKENS TO VOICE AND CLOSING EYES. ORIENTED TO ORIENATION QUESTIONS X 3. INCONTINENT OF URINE. ATTENDS CHANGED. RATES PAIN 6/10 IN RIGHT ARM, DENIES NEED FOR PRN MEDICATION. RIGHT ARM ELEVATED ON PILLOW, GENERALIZED SWELLING IN HAND, ARM. LOWER LEGS WITH 1+ PITTING EDEMA. ELEAVTED WITH BED AND PILLOW. REPOSITIONINED TO RIGHT SIDE WITH PILLOW UNDER LEFT HIP. CBG 183, SS INSULIN ADMINISTERED. CALL LIGHT WITHIN REACH.
--- NOTE | 2020-11-01 23:48 | NUR ---
CHECKED ON pt. RESTING IN BED WITH EYES CLOSED. BREATHING EQUAL AND UNLABORED. RR 16. LIGHTS OFF IN ROOM.
--- NOTE | 2020-11-02 02:01 | NUR ---
pt SLEEPING, AWAKENS TO VOICE. ATTENDS DRY. REPOSITIONED WITH TWO RN ASSISTS TO FLOATING ON PILLOWS. ADDITIONAL BARRIER CREAM APPLIED TO NANCIE AREA, REDNESS NOTED. ALLEVYN IN PLACE ON COCCYX. LUNGS COARSE THROUGHOUT ALL LOBES, HR IRREGULAR. 2+ EDEMA BLE. LEGS ELEVATED. pt DENIES TOILETING NEEDS. LIGHTS OFF IN ROOM. CALL LIGHT IN REACH.
--- NOTE | 2020-11-02 05:46 | NUR ---
CALL LIGHT ANSWERED. pt ASSISTED TO USE URINAL, NO VOID IN URINAL. ATTENDS AND NANCIE PAD SATURATED WITH URINE. CHANGED. BARRIER CREAM APPLIED TO NANCIE AREA. REPOSITIONED WITH TWO RN ASSIST TO RIGHT SIDE. RIGHT ARM ELEVATED ON PILLOWS, LEGS ELEVATED. pt RATES PAIN 4/10 IN RIGHT ARM. PRN PAIN MEDICATION ADMINISTERED REQUESTED. VSS. CALL LIGHT IN REACH.
--- NOTE | 2020-11-02 06:58 | NUR ---
LABS DRAWN BY THIS RN. pt DROWSY. CLOSES EYES RN LEAVES ROOM. CALL LIGHT WITHIN REACH.
--- NOTE | 2020-11-02 10:16 | NUR ---
PATIENT AWAKE AND VISITING WITH . I&O'S CHARTED. RN DID VITALS. PATIENT OFFERED BED BATH PATIENT WOULD LIKE TO SEE HOW HE FEELS AFTER WHILE. WILL REAPPROACH. CALL LIGHT IN REACH. NOTHING ELSE NEEDED.
--- NOTE | 2020-11-02 10:58 | NUR ---
DUE TO AGP IN PROGRESS, I WILL NEED TO COME BACK LATER. WILL FOLLOW
--- NOTE | 2020-11-02 12:10 | NUR ---
SHOWERED PATIENT AND LINEN CHANGED. TRANSFER ASSIST BY PT STAFF DEBBIE. SHOWER CHAIR USED. CLEANED UP BATHROOM AND ROOM. PULLED TO ANOTHER DEPT OTHER STAFF WITH SHAVE PATIENT
--- NOTE | 2020-11-02 14:10 | NUR ---
NOtified by Shantel at [facility]. They will accept pt. Dr. Smith notified, pt updated, has gone home. Attempted to call x4 and unable to reach. Scheduled transport for 1630 from hospital to [facility]. 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
--- NOTE | 2020-11-02 14:35 | NUR ---
PT ASLEEP, DID NOT DISTURB. WILL CHECK BACK
[2020-11-02] MEDS ORDERED: WARFARIN SODIUM3 MG PO (15:27)
[2020-11-02] MEDS ORDERED: OXYCODONE HCL5 MG PO (15:31)
[2020-11-02] MEDS ORDERED: GABAPENTIN100 MG PO (15:31)
[2020-11-02] MEDS ORDERED: KLOR-CON 1010 MEQ PO (15:32)
--- NOTE | 2020-11-02 15:44 | NUR ---
Orders, sliding scale, RX, PASSR, Progress notes, medlist faxed to Shantel at [facility]. All placed in packet and given to auditor in charge.
--- NOTE | 2020-11-02 16:45 | NUR ---
REPORT CALLED TO HARSHAD GARLAND AT [facility]. IV DC'D. CATH INTACT. PAIN REPORTED IN RIGHT WRIST TOLERABLE. PT IS ALERT AND ORIENTED. ACCOMPANIED PATIENT OUT. PT LEFT VIA WHEEL CHAIR.
== END 2020-11-02 17:00 ==
LOC: ED 02:28 → MS 02:30
PROVIDERS: ADMIT Student in an Organized Health Care Education/Training Program; ATTEND Student in an Organized Health Care Education/Training Program
DX: R53.1 Weakness (principal); E80.6 Other disorders of bilirubin metabolism; J44.9 Chronic obstructive pulmonary disease, unspecified; I25.10 Atherosclerotic heart disease of native coronary artery without angina pectoris; E78.5 Hyperlipidemia, unspecified; E11.51 Type 2 diabetes mellitus with diabetic peripheral angiopathy without gangrene; I13.0 Hypertensive heart and chronic kidney disease with heart failure and stage 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, or unspecified chronic kidney disease; E11.22 Type 2 diabetes mellitus with diabetic chronic kidney disease; I50.23 Acute on chronic systolic (congestive) heart failure; N18.9 Chronic kidney disease, unspecified; I82.621 Acute embolism and thrombosis of deep veins of right upper extremity; E11.628 Type 2 diabetes mellitus with other skin complications; L03.116 Cellulitis of left lower limb; L03.115 Cellulitis of right lower limb; I48.0 Paroxysmal atrial fibrillation; I27.20 Pulmonary hypertension, unspecified; M10.9 Gout, unspecified; Z87.891 Personal history of nicotine dependence; Z88.6 Allergy status to analgesic agent; Z88.1 Allergy status to other antibiotic agents; Z88.8 Allergy status to other drugs, medicaments and biological substances; Z79.52 Long term (current) use of systemic steroids; Z79.01 Long term (current) use of anticoagulants; Z79.84 Long term (current) use of oral hypoglycemic drugs
CPT/HCPCS: 36415; 76705; 80048; 80053; 85025; 85610; 86704; 86706; 86709; 86803; 87340; 94640; 94760; 96375; 96376; 97110; 97162; 97166; 97530; 99285; G0378; J1815; J1940; J7512

== ENCOUNTER 2020-11-14 08:27 | Inpatient (IN) | payer MEDICARE, OTHER ==
[~2020-11-14] VITALS: Ht 170.2 cm; Wt 53.3 kg
[~2020-11-14 08:27] MED LIST changes: +GABAPENTIN100 MG PO; +OXYCODONE HCL5 MG PO
--- OUTSIDE RECORDS SUMMARY | 2020-11-14 08:30 | XMS ---
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 \F\ [facility] PHONE: [phone] LAURIE SARMIENTO Internal Medicine Current PHONE: [phone] JOMAR HERNDON Nurse Practitioner Current PHONE: [phone] DONAVAN DANNI [facility] 09/01/2020-Current PHONE: [phone] GISELL JORDAN Nurse Practitioner: Family Current PHONE: Unknown STEFFANY Nurse Practitioner Ada DOMINGUEZ PHONE: [phone] LETICIA ARENAS [facility] Current PHONE: Unknown MAXIMILIANO MEIER [facility] 09/17/2020-Current PHONE: [phone] Phan has no Care Guidelines for this patient. Jay VISIT COUNT (12 MO.) 5 ELIZABETH Saenz TOTAL 5 NOTE: Visits indicate total known visits. 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 - Non-pressure chronic ulcer of other part of left foot with unspecified severity - Allergy status to other drugs, medicaments and biological substances - Personal history of nicotine dependence - assistant terminal manager (current) use of anticoagulants - Allergy status to analgesic agent - senior living (current) use of systemic steroids - Allergy status to other antibiotic agents - Unspecified atrial fibrillation - Other senior care (current) drug therapy 08/31/2020 12:17 [facility] [place] TYPE: Emergency COMPLAINT: - COPD INPATIENT VISIT TRACKING (12 MO.) 10/31/2020 02:30 [facility] [place] TYPE: Observation COMPLAINT: - WEAKNESS DIAGNOSES: - Chronic kidney disease, unspecified - Weakness - Allergy status to analgesic agent - Cellulitis of left lower limb - 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 - senior living (current) use of oral hypoglycemic drugs - Type 2 diabetes mellitus with diabetic peripheral angiopathy without gangrene - Hypertensive heart and chronic kidney disease with heart failure and stage 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, or unspecified chronic kidney disease - Allergy status to other drugs, medicaments and biological substances - Acute on chronic systolic (congestive) heart failure - Hyperlipidemia, unspecified - Type 2 diabetes mellitus with diabetic chronic kidney disease - Acute embolism and thrombosis of deep veins of right upper extremity - Cellulitis of right lower limb - Personal history of nicotine dependence - senior living (current) use of systemic steroids - Allergy status to other antibiotic agents - Weakness - Gout, unspecified - Pulmonary hypertension, unspecified - Other disorders of bilirubin metabolism - Paroxysmal atrial fibrillation - senior living (current) use of anticoagulants - Type 2 diabetes mellitus with other skin complications - Chronic obstructive pulmonary disease, unspecified 10/09/2020 10:05 [facility] [place] TYPE: Medical Surgical COMPLAINT: - TC DIABETIC WOUND DIAGNOSES: - Acute on chronic systolic (congestive) heart failure - assistant terminal manager (current) use of systemic steroids - Pulmonary hypertension, unspecified - assistant terminal manager (current) use of inhaled steroids - Type 2 diabetes mellitus with foot ulcer - assistant terminal manager (current) use of anticoagulants - senior living (current) use of oral hypoglycemic drugs - Allergy status to other antibiotic agents - assistant terminal manager (current) use of oral hypoglycemic drugs - Allergy status to other antibiotic agents - 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 - Paroxysmal atrial fibrillation - Acute kidney failure, unspecified - senior living (current) use of anticoagulants - Non-pressure chronic ulcer of left heel and midfoot with fat layer exposed - Non-pressure chronic ulcer of left heel and midfoot with fat layer exposed - 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 - Acute kidney failure, unspecified - Paroxysmal atrial fibrillation - Gout, unspecified - Acute embolism and thrombosis of deep veins of right upper extremity - Pulmonary hypertension, unspecified - Chronic obstructive pulmonary disease, unspecified - Type 2 diabetes mellitus with diabetic peripheral angiopathy without gangrene - Type 2 diabetes mellitus with diabetic peripheral angiopathy without gangrene - Type 2 diabetes mellitus with diabetic chronic kidney disease - Type 2 diabetes mellitus with diabetic chronic kidney disease - 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 - Chronic obstructive pulmonary disease, unspecified - Allergy status to other drugs, medicaments and biological substances - assistant terminal manager (current) use of systemic steroids - Allergy status to other drugs, medicaments and biological substances - Acute embolism and thrombosis of deep veins of right upper extremity - Acute on chronic systolic (congestive) heart failure - Gout, unspecified - Chronic kidney disease, unspecified - 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 - Chronic kidney disease, unspecified - assistant terminal manager (current) use of inhaled steroids 10/04/2020 14:07 [facility] [place] TYPE: Medical Surgical COMPLAINT: - DIABETIC WOUND DIAGNOSES: - Paroxysmal atrial fibrillation - assistant terminal manager (current) use of systemic steroids - Cellulitis of left lower limb - Acute pyelonephritis - Type 2 diabetes mellitus with diabetic peripheral angiopathy without gangrene - Cellulitis of right lower limb - Adverse effect of cephalosporins and other beta-lactam antibiotics, initial encounter - 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 - Allergy status to other antibiotic agents - Chronic obstructive pulmonary disease, unspecified - Personal history of nicotine dependence - Chronic kidney disease, unspecified - 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 - Type 2 diabetes mellitus with hypoglycemia without coma - Acute kidney failure, unspecified - Myocardial infarction type 2 - Chronic obstructive pulmonary disease with (acute) exacerbation - assistant terminal manager (current) use of anticoagulants - Cardiomyopathy, unspecified - Other senior care (current) drug therapy - Unspecified place in hospital as the place of occurrence of the external cause - assistant terminal manager (current) use of antithrombotics/antiplatelets - Adverse effect of insulin and oral hypoglycemic [antidiabetic] drugs, initial encounter [email or web address]
[2020-11-14] MEDS ORDERED: HUMALOG100 UNIT/2 SUB-Q (09:26)
[2020-11-14] MEDS ORDERED: GLUCAGON EMERGEN1 M1 IJ (09:27)
[2020-11-14] MEDS ORDERED: VITAMIN D325 MC2 PO (09:31)
[2020-11-14] MEDS ORDERED: FISH OIL 1,0001 EAC2 NG (09:32)
--- NOTE | 2020-11-14 12:44 | NUR ---
PATIENT ARRIVED TO CCU FOR A LOWER GI BLEED AT 1135 FROM THE ER. PATIENT WAS AWAKE, TALKING, AND PLEASANT UPON ARRIVAL. PT REPORTEDLY HAD FINISHED THE IV INFUSIONS OF K-CENTRA AND IV VITAMIN K. PT'S INR WAS 9.4 IN THE ER AND ALSO HAD 2 LARGE BMS THAT WERE REPORTEDLY JUST "BLOOD CLOTS." PATIENT HAS BEEN TAKING COUMADIN FOR MANY YEARS FOR HIS CHRONIC AFIB, WELL A RECENT DVT IN HIS RIGHT ARM. PT WAS D/C FROM THIS HOSPITAL ON 11/02 AND HAS BEEN RESIDING AT [facility] SINCE. PT'S KERWIN ACCOMPANIES PATIENT AT THIS TIME. VITALS ARE STABLE UPON ARRIVAL WIHT A HR IN THE 60-70s, AFIB. BP UPON ADMISSION IS 105/59. PATIENT PULLED FROM ER STRETCHER TO CCU BED W/O DIFFICULTY. ADMIT ASSESSMENT COMPLETE. PT REMAINS ON ROOM AIR AND DENIES ANY TROUBLE BREATHING. LABS WERE OBTAINED AT 1200 FOR A CROSS MATCH, A REPEAT HGB, AND A REPEAT COAG STUDIES. PLAN OF CARE DISCUSSED. CALL LIGHT WITHIN REACH AND PT AND ORIENTED TO ROOM. PT YET TO VOID THIS ADMISSION. WILL CONTINUE TO MONITOR.
--- NOTE | 2020-11-14 13:42 | NUR ---
SPOKE WITH DR MCINTYRE, PT HAD 2 BP'S WITH SYSTOLIC IN THE 80'S, RECYCLED i WAS CALLING DR MCINTYRE AND BP IS 95/55. PT HAS NOT HAD ANY FLUID BOLUSES DURING TIME IN ER. DR MCINTYRE CONCERNED OF FLUID OVERLOADING THE PT, REQUESTS A LITER OF LR TO BE GIVEN OVER 4 HOURS (250ML/HR), X 1 LITER ONLY. REPEATED BACK VERBAL ORDER WITH DR MCINTYRE, ALSO DISCUSSED PT'S HEART RATE OCCASIONALLY DROPPING INTO 40'S. DR MCINTYRE AWARE. IV FLUIDS STARTED PER ORDER. PT RESTING WITH EYES CLOSED, AWAKENS TO VOICE, FAMILY MEMBER, KERWIN, REMAINS IN ROOM WITH PT. PT SKIN IS PALE, WARM AND DRY.
--- NOTE | 2020-11-14 14:27 | NUR ---
PATIENT CONTINUES TO REST AND APPEARS IN NO ACUTE DISTRESS. HR REMAINS LOW, RANGING FORM MID 40s-50s, OCCASIONALLY DROPPING THE UPPER 30s BUT NOT SUSTAINING THIS LOW. LAST BP 101/46. IVF CONTINUE AT 250 ML/HR. PT'S HAS LEFT FOR THE DAY AND ASKED THAT WE CALL WITH ANY CONCERNS. PT STILL DUE TO VOID. WILL CONTINUE TO MONITOR.
--- NOTE | 2020-11-14 14:28 | NUR ---
PATIENT TO HAVE AN ULTRASOUND OF RUE TO EVAL DVT THAT HE HAS HAD IN THE RECENT PAST IN THIS ARM.
[2020-11-14] MEDS ORDERED: IPRAT-ALBUT 0.5-3 ML INH (14:43)
--- NOTE | 2020-11-14 14:49 | EKG ---
[facility] [address] [facility] [place] [address] Signed Atrial fibrillation Left posterior fascicular block ST \T\ T wave abnormality, consider anterior ischemia Abnormal ECG When compared with ECG of 02-OCT-2020 04:45, No significant change was found Confirmed by FAY MCINTYRE DO ([id number]) on 11/14/2020 2:48:55 PM Electronically Signed By: FAY MCINTYRE DO 11/14/20 1449 PATIENT NAME: BEAUONEIDA CAMI Electrocardiogram DATE OF : 35 PHYSICIAN: FAY MCINTYRE DO REPORT #: [id number] REPORT IS CONFIDENTIAL AND NOT TO BE RELEASED WITHOUT AUTHORIZATION
--- NOTE | 2020-11-14 15:27 | NUR ---
U/S COMPLETE FOR RIGHT ARM DVT. RESULTS TO BE CALLED TO DR. MCINTYRE FROM DR. ALARCON, RADIOLOGIST.
--- NOTE | 2020-11-14 15:40 | NUR ---
NEW IV SITE PLACED IN LEFT WRIST. IVF SWITCHED TO THIS NEW SITE.
--- NOTE | 2020-11-14 16:06 | NUR ---
PATIENT HAS BEEN RESTING THIS AFTERNOON AND APPEARS COMFORTABLE. PT AWAKENS EASILY TO VOICE. PILLOW PLACED UNDER RIGHT HIP NOW AND WILL CONTINUE TO HELP PATIENT TURN IN BED TO PREVENT HIM FROM LAYING ON COCCYX SINCE HE ALREADY HAS STAGE 1 BREAKDOWN, COVERED WITH AN ALLEVYN ON HIS COCCYX.
--- NOTE | 2020-11-14 17:56 | NUR ---
PATIENT SITTING UP EATING HIS DINNER AND CALLS THIS RN TO REPORT THAT HE HAS HAD A BOWEL MOVEMENT. PATIENT ALSO STATES THAT HE DID NOT VOID WITH THIS MOVEMENT. BOWEL MOVEMENT NOTED TO BE DARK BLOOD CLOTS WITH A TYPICAL GI BLEED FOUL SMELL. PT IS TOLERATING HIS CLEAR LIQUIDS. SCDs ON. DR. MCINTYRE CALLED AND UPDATED ON PT'S BOWEL MOVEMENT AND MINIMAL URINE OUTPUT. 1 L LR HAS NOW FINISHED. PT TO BE BLADDER SCANNED.
--- NOTE | 2020-11-14 18:24 | NUR ---
PATIENT CALLED RN AND HAS HAD ANOTHER BM. PT CLEANED UP AND NOTED TO HAVE A LARGER BLOODY CLOT LIKE BM. PT BLADDER SCANNED FOR 262 ML. PT STILL DOESN'T FEEL LIKE HE NEEDS TO VOID YET. NEW DRESSING PLACED ON COCCYX WOUNDS AND PICTURES TAKEN FOR CHART. OF NOTE, WOUNDS ARE BOTH AT LEAST STAGE 2, SINCE THE SKIN IS NOT I NTACT ON THESE WOUNDS.
--- NOTE | 2020-11-14 19:30 | NUR ---
PT CALLS STATING HE HAS HAD A BOWEL MOVEMENT, HAD SMALL AMOUNT OF DARK RED CLOT LIKE STOOL, ATTENDS CHANGED. PT ABLE TO MOVE HIMSELF WELL IN THE BED. CALL LIGHT IN HAND. ASSESSMENT DONE.
--- NOTE | 2020-11-14 20:20 | NUR ---
PT CALLED WITH ANOTHER LARGER DARK RED CLOT LIKE STOOL, THIS TIME HE DID HAVE SOME URINE IN HIS ATTENDS, MODERATE AMOUNT. PT CLEANED UP AND POSITIONED BACK UP IN BED.
--- NOTE | 2020-11-14 21:10 | NUR ---
RT JUST FINISHED UP NEB TX WITH PT. PT HAS NO NEEDS AT THIS TIME. RESTING HR 50-60 AFIB.
--- NOTE | 2020-11-14 22:48 | NUR ---
DR MCINTYRE CALLED ABOUT BP'S TRENDING DOWN AND LOW URINE OUTPUT, ORDER GIVEN FOR 500ML LR BOLUS, BOLUS STARTED. PT AWAKES EASILY, DENIES NEEDS, BACK TO SLEEP.
--- NOTE | 2020-11-15 01:06 | NUR ---
IN TO ANSWER CALL LIGHT. PATIENT ALERT AND ORIENTED. PATIENT STATED THAT THE NEEDED "CHANGED". PATIENT HAD EPISODE OF INCONTINENCE, BRIEF AND PAD CHANGED. PATIENT DID NOT HAVE ANY SIGNS OF BLEEDING. PATIENT REPORTS RIGHT WRIST PAIN. HR REMAINS IRREGULAR. OXYGEN SATURATION 99% ON RA. PATIENT HAS NO OTHER CONCERNS AT THIS TIME. CALL LIGHT WITHIN REACH.
--- NOTE | 2020-11-15 03:04 | NUR ---
PT RESTING WITH EYES CLOSED, RESP EVEN AND UNLABORED.
--- NOTE | 2020-11-15 03:45 | NUR ---
BP'S HAVE BEGUN TO TREND DOWN AGAIN, ADDITIONAL 500ML LR BOLUS GIVEN PER DR MCINTYRE.
--- NOTE | 2020-11-15 05:42 | NUR ---
LAB IN TO DRAW
--- NOTE | 2020-11-15 06:30 | NUR ---
LABS DRAWN BY RN. PT INC LARGE AMOUNT OF URINE, ATTENDS CHANGED, BED CHANGE DONE AND PT POSITIONED UP IN BED.
--- NOTE | 2020-11-15 07:34 | NUR ---
PATIENT RESTING IN BED UPON INTIAL ASSESSMENT. PT'S KERWIN HAS JUST ARRIVED AND VISITING WITH PATIENT. PATIENT REPORTS THAT HE FEELS PRETTY GOOD OVERALL. PT REPORTEDLY HAD 2 BLOOD CLOT-LIKE BMs EARLY ON IN THE NIGHT. PT RECENTLY HAD A LARGE INCONTINENT VOID IN THE BED AND LINENS WERE CHANGED. RT NOW IN ROOM PROVIDING BREATHING TREATMENT. PT REMAINS IN AFIB, HR 80s AT THE MOMENT. LAST BP 110/62. WILL CONTINUE TO MONITOR.
--- NOTE | 2020-11-15 08:20 | NUR ---
PATIENT HELPED UP TO CHAIR WITH 2 PERSON ASSIST. PT ABLE TO BEAR WEIGHT BUT IS OVERALL WEAK. PT ABLE TO TAKE SMALL STEPS WITH ASSISTANCE. PT SITTING IN CHAIR HAVING BREAKFAST. PT'S AT BEDSIDE STILL. PATIENT THEN NOTIFIES THIS RN THAT HE NEEDS TO GET UP AND USE THE RESTROOM. PT HAS 200 ML OF URINE WELL AN ADDITIONAL BLOODY-CLOT STOOL THAT IS DARK BURGUNDY IN COLOR. PT ALSO NOTED TO BE HAVING MORE PVCs MORE OFTEN AT THIS TIME. AM MEDS GIVEN. DR. MCINTYRE IN CCU AND GIVEN BRIEF UPDATE ON PATIENT'S CONDITION. WILL CONTINUE TO MONITOR.
--- NOTE | 2020-11-15 09:46 | NUR ---
PATIENT CONTINUES TO REST IN CHAIR AT THIS TIME. IV MAGNESIUM STARTED. PT'S REMAINS AT BEDSIDE. PT'S HEART RATE REMAINS MILDLY ELEVATED IN THE 90-100s WITH THE FREQ PVCs NOTED. WILL UPDATE DR. MCINTYRE WHEN HE ROUNDS ON PATIENT THIS AM.
--- NOTE | 2020-11-15 10:12 | NUR ---
PHYS THERAPY IN ROOM WITH PATIENT TO WORK ON STRENGTH AND CONDITIONING. PT'S HR IN 90s.
--- NOTE | 2020-11-15 10:41 | NUR ---
PATIENT WANTING TO GO BACK TO BED AT THIS TIME. HELPED WIHT A 2 PERSON ASSIST BACK TO BED AND HELPED PATIENT TO REST ON HIS LEFT SIDE TO AVOID LAYING ON HIS COCCYX WHICH IS SORE. WILL CONTINUE TO MONITOR. IV MAGNESIUM COMPLETE AND SALINE LOCKED.
--- NOTE | 2020-11-15 11:17 | NUR ---
DR. MCINTYRE IN TO SEE PATIENT AT THIS TIME. PLAN OF CARE BEING DISCUSSED WITH PHYSICIAN AND PATIENT AND FAMILY REGARDING PLANS MOVING FORWARD. DR. MCINTYRE TO BE DISCUSSING WITH A WATER RESOURCE ENGINEERING SPECIALIST AT [facility] TO FOLLOW UP ON PT'S DVT IN RIGHT ARM AND NEED FOR ANTICOAGULATION. WILL CONTINUE TO MONITOR.
--- NOTE | 2020-11-15 12:24 | NUR ---
ASSESSMENT UNCHANGED FROM PRIOR. PT RESTING IN BED. PT GIVEN ANTICOAGULANT PER MD ORDER AND EXPLAINED TO PATIENT THE REASONS FOR THIS. ALL QUESTIONS ANSWERED BEST POSSIBLE. PT WANTING TO REST SOME MORE AT THIS TIME AND NOT HAVE HIS CLEAR LIQUID TRAY UNTIL LATER. WILL ALLOW PT TO REST. PT'S HAS LEFT FOR NOW TO GO HOME. HR IN THE 70s AND LESS PVCs NOTED AFTER MAGNESIUM ADMINISTRATION. LAST BP 111/64.
--- NOTE | 2020-11-15 14:46 | NUR ---
PATIENT HAS AWOKEN FROM HIS NAP AND WANTING HIS CLEAR LIQUID TRAY WHICH WAS PROVIDED FOR HIM. PT'S ATTENDS ALSO CHANGED HE WAS INCONTINENT OF URINE. PT'S KERWIN HAS RETURNED AND IN ROOM VISITING WITH PATIENT. PT DENIES FURTHER NEEDS. PT'S BED TURNED SO HE CAN SEE OUTSIDE WHILE HE VISITS WITH HIS .
--- NOTE | 2020-11-15 17:00 | NUR ---
PATIENT HAS BEEN SITTING UP IN CHAIR WIHT HIS NEAR THE WINDOW. PT CONTINUES TO DO WELL WITH MINIMAL BLEEDING, STILL HAVING SOME CLOTS BUT IS MORE FORMED LIKE STOOL.
--- NOTE | 2020-11-15 18:57 | NUR ---
PATIENT UP TO BSC AT THIS TIME. PT HAS BEEN RESTING IN BED AND DID NOT WANT TO HAVE ANY DINNER. PT'S CBG WAS 230 AND COVERED WITH 2 UNITS SS INSULIN.
--- NOTE | 2020-11-15 19:38 | NUR ---
REPORT RECEIVED FROM DAY SHIFT RN. PT IN BED WATCHING TV. HR 70'S AFIB WITH ECTOPY/FREQUENT PVC'S. DENIES NEEDS AT THIS TIME, RECENTLY UP TO BSC WITH DAY SHIFT RN AND NOW BACK TO BED.
--- NOTE | 2020-11-15 21:20 | NUR ---
BLOOD SUGAR 56. PT ALERT AND ORIENTED, DENEIS ANY TYPES OF SX, WAS ABLE TO DRINK AN ENTIRE CUP OF APPLE JUICE AFTERWARDS WITHOUT DIFFICULTY. BLOOD SUGAR RECHECKED AFTER WAS 58. 25ML D50 IV GIVEN PRN. CONT TO MONITOR.
--- NOTE | 2020-11-15 21:35 | NUR ---
DR GALLEGO NOTIFIED OF LOW BP'S AND GIVING D50.
--- NOTE | 2020-11-15 21:45 | NUR ---
PT STATES "MY TAILBONE HURTS SO MUCH IM HAVING A HARD TIME THINKING OF ANYTHING ELSE." 650MG PO TYLENOL GIVEN. PT REPOSITIONED ONTO SIDE AND OFF COCCYX.
--- NOTE | 2020-11-15 21:53 | NUR ---
RT IN TO DO NEB TX.
--- NOTE | 2020-11-16 00:27 | NUR ---
BLOOD SUGAR 147. PT AWAKENS EASILY FOR ASSESSMENT AND REPOSITIONING. LUNGS CLEAR, DENIES PAIN, HR 70'S AFIB WITH FEW PVC'S.
--- NOTE | 2020-11-16 03:14 | NUR ---
UP TO BSC FOR SMALL FORMED DARK RED STOOL, INC IN ATTENDS. BACK TO BED, ASSESSMENT UNCHANGED FROM PREVIOUS.
--- NOTE | 2020-11-16 05:08 | NUR ---
PT CALLED TO USE BSC. HAD MORE DIFFICULTY THIS TIME GETTING UP TO COMMODE, WAS FINALLY ABLE TO STAND USING WALKER AFTER SEVERAL ATTEMPTS AND WAS NOT ABLE TO GET HIMSELF STANDING UP FROM COMMODE, HAD TO BE LIFTED BY RN ONTO BED. DENIES PAIN, JUST C/O FEELING WEAK. HAD SMALL FORMED DARK RED BOWEL MOVEMENT AND 150ML OF URINE. HR REMAINED 60-70 WHILE UP.
--- NOTE | 2020-11-16 07:03 | NUR ---
PT RESTING IN BED WITH EYES CLOSED, RESTING HR 40'S.
--- NOTE | 2020-11-16 07:37 | NUR ---
REPORT REC'D FROM ACCOUNT INSTALLATION SPECIALIST AND CARE RESUMED. PATIENT BACK IN BED NOW AFTER VISITING THE COMMODE. PT IS MORE WEAK THIS AM COMPARED TO YESTERDAY. DR. GALLEGO NOW IN ROOM DISCUSSING PLAN OF CARE WITH PATIENT.
--- NOTE | 2020-11-16 09:00 | NUR ---
PATIENT UP TO BSC AGAIN TO HAVE AANOTHER SMALL FORMED DARK BROWN STOOL. NO BLOOD EVIDENT. PT THEN INTO CHAIR FOR BREAKFAST. PT'S IN ROOM AND HELPING PATIENT EAT. PATIENT IS A 1-2 PERSON ASSIST FOR STABILITY WHEN STANDING. PT/OT SHOULD WORK WIHT PATIENT TODAY. NEW BED PLACED IN PT'S ROOM DUE TO PRIOR BED NOT INFLATING PROPERLY IN THE MIDDLE SECTION AND CAUSING FURTHER DISCOMFORT FOR THE PATIENT. PT WILL REMAIN IN CCU TODAY PER DR. GALLEGO WE CONTINUE TO MONITOR FOR SIGNS OF BLEEDING.
--- NOTE | 2020-11-16 09:20 | NUR ---
rn and glass handler helped pt. up to bed side commode to have bm
--- NOTE | 2020-11-16 09:20 | NUR ---
v/s done, coffee and water given, bed linens changed.
--- NOTE | 2020-11-16 10:22 | NUR ---
RN and ssrs report developer helped pt. up to bedside commode for a bm. no other needs at this time.
--- NOTE | 2020-11-16 10:54 | NUR ---
PATIENT REMAINS IN CHAIR. HAS BEEN TO COMMODE SEVERAL TIMES THIS MORNING TO HAVE SMALL BM. STOOLS ARE BROWN THIS MORNING. NO ACTIVE BLEEDING NOTED. PATIENT IN ROOM. PATIENT DENIES PAIN OR SHORTNESS OF BREATH. IS PALE IN COLOR. HAS BEEN TALING SIPS OF WATER/ENSURE.
--- NOTE | 2020-11-16 12:00 | NUR ---
ASSESSMENT UNCHANGED. IN BED READY TO EAT LUNCH. REMAINS IN ROOM.
--- NOTE | 2020-11-16 13:02 | NUR ---
PT ALERT, ORIENTED AND VISITING WITH KERWIN AT . PT WAS WORKING ON SOME ENSURE, DID EAT SOME BREAKFAST. FELT HE WAS PROGRESSING AT [facility], THE BLEED SURPRISED BOTH. GAVE ENCOURAGEMENT, G.POST AND PRAYER. WILL FOLLOW NEEDED
--- NOTE | 2020-11-16 14:00 | NUR ---
INTO ROOM, CASE MANAGEMENT ASSESSMENT COMPLETED. PATIENT AWAKE IN BED, REQUESTING HELP AND TO CALL HIS . CCU STAFF INTO ASSIST, PATIENT ADVISED THAT HIS HAD GONE HOME FOR THE DAY. PATIENT STATES THINGS ARE GOING "OKAY" AT [facility]. CONTACT INFORMATION FOR KERWIN VERIFIED. ADVISED PATIENT THAT I WILL RETURN TO CHECK ON HIM AT A LATER TIME AND DISCUSS DISCHARGE PLANS FURTHER WITH KERWIN PRESENT.
--- NOTE | 2020-11-16 14:20 | NUR ---
PHYS THERAPY HERE TO WORK WITH PATIENT. OOB TO CHAIR.
--- NOTE | 2020-11-16 15:40 | NUR ---
TO COMMODE FROM CHAIR TO HAVE SOFT BROWN STOOL, THEN BACK TO CHAIR. NO CHANGES.
--- NOTE | 2020-11-16 16:30 | NUR ---
ASSESSMENT DONE. NO CHANGES. DENIES NEED FOR PAIN MEDICATION.
--- NOTE | 2020-11-16 18:53 | NUR ---
UP TO COMMODE WITH ASSIST.
--- NOTE | 2020-11-16 19:25 | NUR ---
RECEIVED REPORT ON PT. HE IS RESTING IN BED WITH EYES CLOSED, RR IS EVEN AND NONLABORED. CALL LIGHT IS CLOSE.
--- NOTE | 2020-11-16 20:20 | NUR ---
IN ROOM TO FIX TELE LEADS. PT DENIES PAIN AND SOB AT THIS TIME. REPOSITIONED PT IN BED AND HE DENIES FURTHER NEEDS. CALL LIGHT IS CLOSE.
--- NOTE | 2020-11-16 21:15 | NUR ---
IN ROOM TO ASSESS PT AND ADMINISTER MEDICATIONS. PT REPORTS PAIN AT 4/10 IN R WRIST. ADMINISTERED 2.5MG OF OXYCODONE. PT IS ALERT AND ORIENTED AND DENIES SOB. SCD'S ARE IN PLACE AND PT DENIES NEEDING TO GET UP TO THE RESTROOM. 1 UNIT INSULIN GIVEN PER ORDERS FOR BLOOD GLUCOSE OF 176. PT TURNED HIMSELF TO HIS R SIDE AT THIS TIME. PT DENIES FURTHER NEEDS AND CALL LIGHT IS CLOSE.
--- NOTE | 2020-11-16 21:37 | NUR ---
IN TO DO BLOOD PRESSURE. pt REPORTED FEELING "A LITTLE OFF" ORIENTED TO SELF, LOCATION AND EVENT. DISCUSSED THIS IS A DIFFERENT ROOM THEN HE WAS IN PRIOR. DESCRIBED VIEW. pt APPROPRIATE. NO FURTHER REQUESTS AT THIS TIME. CALL LIGHT WITHIN REACH.
--- NOTE | 2020-11-16 22:59 | NUR ---
PT IS RESTING WITH EYES CLOSED, RR IS EVEN AND NONLABORED. CALL LIGHT IS CLOSE.
--- NOTE | 2020-11-16 23:32 | NUR ---
PT RESTING WITH EYES CLOSED, BREATHING EVEN AND UNLABORED RR=20. LTKA=750 % ON 3 L OM. BLOOD CONTINUES TO INFUSE. PT REMAINS VISIBLE FROM NURSES STATION. CALL LIGHT WITHIN REACH. WILL CONTINUE TO CLOSELY MONITOR.
--- NOTE | 2020-11-16 23:55 | NUR ---
CHECKED ON PT. HE HAD LEGS OFF SIDE OF BED. HE STATES HE IS ALL TANGLED UP AND HIS LEGS ARE TIED DOWN. HE WANTED TO KNOW WHO HAD THE KEYS TO THE THINGS ON HIS LEGS. TALKED WITH PT ABOUT THE SCD'S ON HIS LEGS AND WHAT THEY ARE USED FROM. HE WAS EASILY REORIENTED AND KNOWS HE IS AT [facility]. PT TALKED ABOUT PHAN AND HIS AND HOW HE IS UNSURE OF WHERE HE IS GOING IN THE NEXT COUPLE DAYS. CHANGED PT'S ATTENDS. ALLEYN ON COCCYX IS INTACT. PLACED PILLOW UNDER R HIP. PT DENIES FURTHER NEEDS AT THIS TIME. CALL LIGHT IS CLOSE.
--- NOTE | 2020-11-17 00:43 | NUR ---
PT CALLED STATING HE VOIDED AGAIN AND DOES NOT KNOW WHY HE CANNOT HOLD IT. CHANGED PT'S ATTENDS. BARRIER CREAM APPLIED TO RED AREA IN GROIN. ALLEVYN STILL INTACT ON PT'S COCCYX. PT IS POSITIONED WITH PILLOW UNDER R SIDE, UNDER FEET, AND UNDER BOTH ARMS. PT DENIES FURTHER NEEDS AT THIS TIME. CALL LIGHT IS CLOSE. VS ENTERED.
--- NOTE | 2020-11-17 01:35 | NUR ---
PT IS RESTING WITH EYES CLOSED, RR IS EVEN AND NONLABORED ON RA. CALL LIGHT IS CLOSE.
--- NOTE | 2020-11-17 02:11 | NUR ---
PT CALLED NEEDING ATTENDS CHANGED. HE STATES PAIN IN R WRIST IS 5/10. ADMINISTERED TYLENOL IT IS TOO EARLY FOR OXYCODONE. REPOSITIONED PT WITH PILLOWS UNDER HIPS TO FLOAT HIM. PILLOW UNDER HEELS. PT DENIES FURTHER NEEDS AT THIS TIME. CALL LIGHT IS CLOSE.
--- NOTE | 2020-11-17 03:38 | NUR ---
PT IS RESTING WITH EYES CLOSED, RR IS EVEN AND NONLABORED. CALL LIGHT IS CLOSE.
--- NOTE | 2020-11-17 04:39 | NUR ---
PT IS RESTING WITH EYES CLOSED, RR IS EVEN AND NONLABORED. HE HAS TURNED OVER TO HIS RIGHT SIDE. CALL LIGHT IS CLOSE.
--- NOTE | 2020-11-17 05:30 | NUR ---
ADMINISTERED OXYCODONE FOR 6/10 PAIN IN WRIST, WHEN PT ROLLED OVER HE SAID SHE SORE ON HIS BOTTOM HURT WELL. VS TAKEN AND ENTERED. PT DENIES FURTHER NEEDS AT THIS TIME. PILLOW PLACED UNDER L HIP. CALL LIGHT IS CLOSE.
--- NOTE | 2020-11-17 06:35 | NUR ---
PT IS RESTING WITH EYES CLOSED, RR IS EVEN AND NONLABORED. CALL LIGHT IS CLOSE.
--- NOTE | 2020-11-17 07:41 | NUR ---
REPORT RECIEVED. WOKE FOR ASSESSMENT. DENIES PAIN. TALKED WITH PATIENT ABOUT POC FOR DAY. INDICATES UNDERSTANDING.
--- NOTE | 2020-11-17 08:46 | NUR ---
rn and tram inspector helped pt get up and use the bed side commode.
--- NOTE | 2020-11-17 09:00 | NUR ---
PATIENT FEEDING PATIENT BREAKFAST. ROUTINE MEDICATIONS GIVEN. PATIENT FEELING VERY TIRED.
--- NOTE | 2020-11-17 09:30 | NUR ---
TOOK BREAKFAST POOR.
--- NOTE | 2020-11-17 10:57 | NUR ---
RESTING, NO CHANGES AT THIS TIME.
--- NOTE | 2020-11-17 11:20 | NUR ---
INTO PATIENT ROOM. PATIENT WITH KERWIN AND SKY RN AT BEDSIDE. KERWIN STATES THAT PATIENT STAY AT [facility] WAS GOING [facility] PRIOR TO ADMISSION. SHE STATES PATIENT HAD BEEN UP WITH PT AND SEEMED TO BE GETTING STRONGER. PATIENT IS NOT FEELING WELL TODAY, C/O FATIGUE. KERWIN STATES THAT AT THIS TIME SHE AND THE PATIENT FEELS THAT RETURN TO [facility] IS APPROPRIATE AND SAFE WHEN PATIENT IS READY. WILL CONTINUE TO FOLLOW UP WITH PATIENT AND SPOUSE.
--- NOTE | 2020-11-17 11:23 | NUR ---
RN and TELEGRAPH MESSENGER got pt up to bedside commode for bm.
--- NOTE | 2020-11-17 11:35 | NUR ---
ASSESSMENT DONE. HAS BEEN VERY TIRED TODAY. MUCH LESS INTERACTIVE WITH HIS AND STAFF TODAY. CONTINUE TO REFUSE LUNCH. IN BED TURNED TO RIGHT SIDE.
--- NOTE | 2020-11-17 14:30 | NUR ---
CONTINUES TO SLEEP. NO DISTRESS NOTED. PATIENT IN ROOM.
--- NOTE | 2020-11-17 15:13 | NUR ---
CCU STAFF REQUESTED I NOT DISTURB PT AT THIS TIME. WILL CHECK BACK
--- NOTE | 2020-11-17 15:30 | NUR ---
OOB TO COMMODE TO EXPELL VERY SMALL STOOL, STOOL WAS SOFT FORMED, SMALL AMOUNT OF BLOOD NOTED AROUND STOOL. DR. GALLEGO HERE AND AWARE, PATIENT IS ALSO AWARE OF THIS SMALL AMOUNT OF BLEEDING WITH STOOL.
--- NOTE | 2020-11-17 16:00 | NUR ---
SITTING IN CHAIR, ASSESSMENT DONE.
--- NOTE | 2020-11-17 17:00 | NUR ---
BACK TO BED WITH ASSIST. PATIENT HAS BEEN EXTREMLEY TIRED ALL DAY. REFUSED DINNER. DID TAKE ONE ENSURE PLUS TODAY. FEW SIPS OF WATER. ACCUCHECK-193. 1 UNIT INSULIN GIVEN.
--- NOTE | 2020-11-17 19:02 | NUR ---
SLEEPING, REPORT TO NEXT SHIFT.
--- NOTE | 2020-11-17 21:00 | NUR ---
SHIFT REPORT RECEIVED FROM DADA SWANSON. ASSESSMENT COMPLETED AT THIS TIME, PT WAS ASLEEP, WOKE UP EASILY WHILE I WAS IN ROOM. REPORTS THAT HIS PAIN IS TOLERABLE AT THIS TIME, ASSISTED HIM TO REPOSITION ONTO RIGHT SIDE WITH PILLOW SUPPORT. LUNGS CLEAR, DIM IN BASES, RA. REPORTS MILD SOB AT REST, SCHEDULED BREATHING TREATMENT GIVEN. HR IRREGULAR, MISAEL 35-50'S. BOWEL TONES ACTIVE, REPORTS NAUSEA, PRN ZOFRAN GIVEN. SKIN GROSSLY INTACT, MILD EDEMA PRESENT IN FEET, SCD'S IN PLACE. ALLEVYN TO COCCYX C/D/I. IV SITES INTACT, PATENT, SALINE LOCKED. ATTENDS IN PLACE, DRY AT THIS TIME, PT DENIES NEED TO USE BATHROOM. PT DENIES FURTHER REQUESTS AT THIS TIME, CALL LIGHT WITHIN REACH.
--- NOTE | 2020-11-17 22:28 | NUR ---
PT SLEEPING AT THIS TIME, REMAINS ON RIGHT SIDE. RESPIRATIONS EVEN AND UNLABORED, HR REMAINS BRADYCARDIC. RR:12, SPO2:96% ON RA.
--- NOTE | 2020-11-17 23:27 | NUR ---
MD INTO UNIT TO CHECK ON PATIENTS; UPDATED HER ON PT'S BRADYCARDIA. NO NEW ORDERS AT THIS TIME, MD STATES SHE MAY DECREASE SUBSEQUENT METOPROLOL DOSAGE.
--- NOTE | 2020-11-18 00:10 | NUR ---
PT SLEEPING, WOKE EASILY WHEN SPOKEN TO. PRN OXYCODONE GIVEN FOR 5/10 RIGHT WRIST AND COCCYX PAIN. PT INCONTINENT OF LARGE AMOUNT OF URINE, PERICARE, BARRIER CREAM, AND NEW ATTENDS PROVIDED. PT REPOSITIONED ONTO LEFT SIDE WITH PILLOW SUPPORT. REMAINDER OF ASSESSMENT UNCHANGED. PT DENIES FURTHER NEEDS AT THIS TIME.
--- NOTE | 2020-11-18 02:43 | NUR ---
PT CALLED TO REPORT NEEDING TO HAVE BM. PT FEELS HE IS NOT STRONG ENOUGH TO GET UP TO BSC. PLACED PT ON BEDPAN AND HE HAD MEDIUM AMOUNT OF BURGUNDY- COLORED LIQUID STOOL. PERICARE PROVIDED. PT REPOSITIONED IN BED, TIPPED ONTO RIGHT SIDE WITH PILLOW SUPPORT. PT STATES WRIST PAIN IS UNCHANGED SINCE PRN OXYCODONE. DENIES FURTHER REQUESTS AT THIS TIME.
--- NOTE | 2020-11-18 03:08 | NUR ---
PT CALLED TO REPORT INCONTINENCE OF STOOL, DENIED NEEDING BEDPAN JUST STATED HE NEEDED TO BE CHANGED. SMALL AMOUNT OF LIQUID BURGUNDY STOOL NOTED, PERICARE AND NEW ATTENDS PROVIDED. PT POSITIONED ON RIGHT SIDE, DENIES FURTHER NEEDS AT THIS TIME.
--- NOTE | 2020-11-18 04:49 | NUR ---
PT CALLED, HAD BEEN INCONTINENT OF URINE AND SMALL AMOUNT OF BURGUNDY LIQUID STOOL. PERICARE PROVIDED AND NEW ATTENDS PLACED. STOOL HAD LEAKED UNDER ALLEVYN DRESSING TO COCCYX, NEW DRESSING PLACED. PT REPOSITIONED TO LEFT SIDE WITH PILLOW SUPPORT. REMAINDER OF ASSESSMENT UNCHANGED. PT DENIES NEEDS, CALL LIGHT WITHIN REACH.
--- NOTE | 2020-11-18 06:20 | NUR ---
CALL LIGHT ON. pt HAD DARK RED BLOOD, NO STOOL NOTED. PERICARE DONE. FRESH DEPENDS. CALL LIGHT WITHIN REACH.
--- NOTE | 2020-11-18 06:39 | NUR ---
DR. GALLEGO IN TO SEE PT, UPDATED HER ON PT'S BLOODY STOOLS DURING NIGHT. PER MD, HOLD MORNING DOSE OF ELIQUIS AND DECREASED SCHEDULED METOPROLOL TO 50MG.
--- NOTE | 2020-11-18 07:30 | NUR ---
PATIENT SHIFT REPORT RECIEVED FROM DIRECTOR OF VOCATIONAL TRAINING RN. PATIENT RESTING IN BED AT THIS TIME. CALL LIGHT IN REACH. VITALS STABLE. WILL CONTINUE TO CLOSELY MONITOR.
--- NOTE | 2020-11-18 09:30 | NUR ---
PATIENTS ASSESSMENT COMPELTED. PATIENT RESTING IN BED. PATIENT HAD A LOOSE BLOODY BM. PATIENTS BOWEL TONES ACTIVE. BREATH SOUNDS CLEAR. PATIENT DENEIS DIZZINESS OR SOB. STAFF WILL REPOSITION PATIENT EVERY SEVERAL HOURS FOR COCCYX BREAKDOWN. PATIETNS HR THIS AM WAS IN THE 50'S AND BLOOD PRESSURE 90'S SYSTOLIC. HELD METOPROLOL AND MD NOTIFIED. NO NEW ORDERS. OKAY WITH HOLDING MEDS AT THIS TIME AND WILL RE-EVALUATE. WILL CONTINUE TO CLSOELY MONITOR.
--- NOTE | 2020-11-18 10:30 | NUR ---
UPDATE RECVD FROM [facility] GARLAND. PATIENT AWAITING C-[facility] TOMORROW 11/19/2020. PATIENT MAY REQUIRE BLOOD TRANSFUSION LATER TODAY DEPENDING ON LAB RESULTS. PER DR. GALLEGO PATIENT TO CONTINUE CARE IN CCU TODAY. NO CHANGE IN DISCHARGE PLAN AT THIS TIME. WILL CONTINUE TO FOLLOW WITH PATIENT.
--- NOTE | 2020-11-18 11:30 | NUR ---
PATIENT WORKING ON BOWEL PREP MIRALAX AT THIS TIME. PATIENT HAS HAD MULTIPLE LOOSE BLOODY STOOLS THIS AM. PATIENTS VITALS STABLE [facility]. WILL DO A HEMOGRAM AT 1200 TO TREND LABS. PATIENT TYPED AND SCREEENED PER MD GALLEGO AND 2 UNITS PRBC PLACED ON HOLD. [facility]
--- NOTE | 2020-11-18 13:00 | NUR ---
MD FAYE WAS IN TO SEE PATIENT AND DISCUSS PLAN OF CARE. PATIENT CONTINUES TO WORK ON BOWEL PREP. PATIENT TOLERATING WELL. PATIENT CONTINUES TO HAVE RED LOOSE BLOODY BMS. NO OTHER NEEDS AT THIS TIME. WILL COTNINUE TO CLOSELY MONITOR.
--- NOTE | 2020-11-18 14:46 | NUR ---
PT SEEMS WEAKER TODAY, MORE FRAIL. HAS GONE HOME, PT SEEMED PLEASED TO SEE ME. APOLOGIZED FOR COMING IN NOW, HAS SOME INCONTINENCE. GAVE BLESSING, ENCOURAGEMENT AND PRAYED WITH PT. PT VOICED THE PRAYER AFTER ME. HE SMILED AND THANKED ME. WILL FOLLOW
--- NOTE | 2020-11-18 15:00 | NUR ---
PATIENT RESTING OFF/ON THIS AFTERNOON. PATIENT CONTINUES TO HAVE LOOSE BLOODY BMS THIS AFTERNOON. PATIENTS VITALS REMAIN STABLE. PATIENT DENIES DIZZINESS WITH MOVING AND NO SOB. PATIENT IS WEAK, BUT ABLE TO ROLL AND TURN SELF IN THE BED. PATIENT HAS BEEN INCONTINENT THROUGHOUT THE DAY OF URINE AND STOOLS. WILL CONTINUE TO CLOSELY MONTIOR.
--- NOTE | 2020-11-18 15:40 | NUR ---
CALLED MD GALLEGO TO UPDATE THAT PATIENT IS HAVING INCREASED ECTOPY THIS AFTERNOON AND HR IS NOW 80'S-90'S AND BP 129/66. PER MD GIVE METOPROLOL DOSE THAT WAS HELD FROM THIS AM. NO OTHER NEEDS AT THIS TIME. WILL CONTINUE TO CLOSELY MONITOR.
--- NOTE | 2020-11-18 17:10 | NUR ---
THIS RN IN TO CHANGE PATIENTS ATTENDS. IN THE MIDDLE OF CHANGING HIS ATTENDS PATIENT HAD ANOTHER LOOSE BLOODY STOOL. PATIENT CONTINUES TO DENY DIZZINESS OR SOB. PATIENT HAS CONTINUED TO HAVE LG LOOSE RED BLOODYT BOWEL MOVEMENTS. PATIENT IS DRINKING 2ND GATORAGDE BOTTLE OF MIRALAX AT THIS TIME. PATIENTS AT THE BEDSIDE. WILL CONTINUE TO CLOSELY MONITOR.
--- NOTE | 2020-11-18 20:30 | NUR ---
SHIFT REPORT RECEIVED FROM DADA LYNCH. ASSESSMENT COMPLETED AT THIS TIME. PT IS ALERT/ORIENTED, REPORTS PAIN IN RIGHT WRIST REMAINS 5/10. LUNGS CLEAR, RA. HR IRREGULAR. BOWEL TONES ACTIVE, DENIES NAUSEA. PT INCONTINENT OF URINE AND BLOODY STOOL. PERICARE PROVIDED, ALLEVYN REPLACED TO COCCYX. PT REPOSITIONED TO LEFT SIDE WITH PILLOW SUPPORT. IV SITES INTACT AND PATENT. PT DENIES FURTHER REQUESTS AT THIS TIME, CALL LIGHT WITHIN REACH.
--- NOTE | 2020-11-18 21:15 | NUR ---
PT REPORTS STOOL INCONTINENCE, SMALL AMOUNT OF BLOODY STOOL NOTED. PERICARE PROVIDED. PT HAS SMALL AMOUNT OF BOWEL PREP LEFT, ENCOURAGE HIM TO KEEP DRINKING IT AND REMINDED HIM THAT HE'LL BE NPO AT MIDNIGHT.
--- NOTE | 2020-11-18 21:57 | NUR ---
SPOKE TO DR. GALLEGO REGARDING PT'S INCREASED AMOUNT OF ECTOPY/VENTRICULAR BEATS NOTED ON PROPERTY MANAGEMENT SPECIALIST. ORDERS RECEIVED FOR MORNING BMP AND MAGNESIUM LABS.
--- NOTE | 2020-11-18 23:17 | NUR ---
IN TO CHECK ON PT WHO IS AWAKE AT THIS TIME. PT REPORTS HE WOKE UP SLIGHTLY CONFUSED AND TOOK OFF HIS BP CUFF. HE IS ORIENTED NOW. ASSISTED PT TO REPOSITION TO RIGHT SIDE. ATTENDS DRY AT THIS TIME. PT DENIES FURTHER NEEDS AT THIS TIME.
--- NOTE | 2020-11-19 00:02 | NUR ---
PT CALLED TO REPORT INCONTINENCE, ATTENDS CHANGED AND PERICARE PROVIDED. STOOL REMAINS BLOODY. PRN OXYCODONE GIVEN FOR 5/10 PAIN TO RIGHT WRIST AND COCCYX, PT ON RIGHT SIDE WITH PILLOW SUPPORT. PT CONTINUES TO DENY DIZZINESS, CHEST PAIN, SOB, AND NAUSEA. REMAINDER OF ASSESSMENT UNCHANGED. FLUIDS REMOVED FOR NPO STATUS, PT AWARE. NO FURTHER REQUESTS AT THIS TIME, CALL LIGHT WITHIN REACH.
--- NOTE | 2020-11-19 00:42 | NUR ---
PT CALLED TO REPORT INCONTINENCE OF STOOL. PT HAD SMALL AMOUNT OF BLOODY LIQUID BM. PERICARE AND NEW ATTENDS PROVIDED. PT REPOSITIONED ONTO LEFT SIDE WITH PILLOW SUPPORT. DENIES FURTHER NEEDS AT THIS TIME.
--- NOTE | 2020-11-19 02:06 | NUR ---
PT APPEARS TO BE SLEEPING AT THIS TIME, REMAINS ON LEFT SIDE. NO APPARENT DISTRESS, RESPIRATIONS EVEN AND UNLABORED.
--- NOTE | 2020-11-19 04:30 | NUR ---
IN TO CHECK ON PT, HE HAD REPOSITIONED HIMSELF ONTO HIS RIGHT SIDE AND REMOVED BP CUFF. HE WOKE UP EASILY AND IS SLIGHTLY MORE CONFUSED UPON WAKING. RE-ORIENTED HIM TO DATE, SURROUNDINGS, AND EVENT. ATTENDS CHANGED, INCONTINENT OF URINE AND SMEAR OF BLOODY BM, PT FOLLOWS DIRECTIONS AND IS ABLE TO TURN SELF IN BED. STATES HE FEELS SLIGHTLY DIZZY WITH TURNING IN BED. REMAINDER OF ASSESSMENT UNCHANGED. ATTEMPTED NEW IV SITE IN LEFT FOREARM IN ATTEMPT TO DRAW MORNING LABS EARLY, BUT WAS UNSUCCESSFUL; OTHER IV SITES REMAIN PATENT AND INTACT. WARM BLANKET AND MOUTH SWABS PROVIDED PER REQUEST.
--- NOTE | 2020-11-19 05:18 | NUR ---
[facility] [employer] IN TO DRAW MORNING LABS.
--- NOTE | 2020-11-19 06:16 | NUR ---
PT CALLED NEEDING ATTENDS CHANGED. SMEAR OF BRIGHT RED BLOOD IN ATTENDS, PERICARE AND NEW ATTENDS PROVIDED. PT REPOSITIONED ONTO LEFT SIDE WITH PILLOW SUPPORT.
--- NOTE | 2020-11-19 06:26 | CONS ---
[facility] [address], [place] [address] Signed DATE OF CONSULTATION: 11/18/2020 CHIEF COMPLAINT: Rectal bleeding. HISTORY OF PRESENT ILLNESS: Nestor is an 85-year-old gentleman with a history of atrial fibrillation and a right upper extremity DVT approximately two months ago. Not sure why he had a DVT. He has also lost about 15 pounds the last month. The told me he did pretty well last year, but one COVID virus hit, he seems to have declined and in particular last couple months, he has declined significantly. There was blood noted in his bowel movements at the [facility] care facility, so he was brought to the emergency room. He had no pain. No hematemesis. He was admitted to the Internal Medicine Service in the ICU. He received vitamin K and Kcentra with good results. His INR had been 9.4 and it came down to 0.9. Apparently, he quit bleeding and had several normal brown bowel movements. He went back on Eliquis and immediately started bleeding again. The INR this morning is 4. I have been asked by the Internal Medicine Service to consider upper and lower endoscopy to look for a source of his bleeding. We know that apparently he has a history of diverticulosis. He has had scopes in the past, but he and his are not able to give much detail. PAST MEDICAL HISTORY: Gout, right wrist pain, atrial fibrillation, type 2 diabetes, hypertension, COPD, coronary artery disease, hyperlipidemia, pneumonia, right upper extremity DVT, severe pulmonary hypertension, and lower extremity edema. PAST SURGICAL HISTORY: Right pinky finger, right foot bilateral rotator cuffs, tonsils, cardiac stents x2 and nasal surgery. SOCIAL HISTORY: He quit smoking. He does drink a little. He resides at [facility]. He is a DNR/DNI and he maintains that today in our conversation. His is Harriett at [phone]. Dr. Noah Mcnair is his primary care provider. FAMILY HISTORY: None. REVIEW OF SYSTEMS: He had 10 systems reviewed, mainly we went over the last 12 months or so. ALLERGIES: NSAIDs, lovastatin cefepime, Cipro and simvastatin. Electronically Signed By: VICKI FAYE MD 11/19/20 0626 PATIENT NAME: NESTOR YANEZ CAMI CONSULTATION DATE OF : 35 REPORT #: [id number] PHYSICIAN: VICKI FAYE MD PCP: MAXIMILIANO MEIER MD REPORT IS CONFIDENTIAL AND NOT TO BE RELEASED WITHOUT AUTHORIZATION [facility] [address], [place] [address] Signed MEDICATIONS: Coumadin, prednisone taper, Protonix, metoprolol, lisinopril, digoxin, allopurinol, oxycodone, gabapentin, potassium, ipratropium, albuterol, torsemide, nitroglycerin p.r.n., insulin, glucagon, vitamin D, fish oil, Singulair, budesonide, Coenzyme Q10, arformoterol, glipizide and atorvastatin. PHYSICAL EXAMINATION: GENERAL: Nestor is an 85-year-old gentleman lying supine in his ICU bed. His is at the bedside. He is actually quite thin and even cachectic. Although, he is alert, awake and interacts well. He and his are moderate historians. LUNGS: He has moderately distant breath sounds. He is in atrial fibrillation without murmur. ABDOMEN: Generally soft and he has a small reducible umbilical hernia. LABORATORY DATA: His white blood count is 8.7, his hemoglobin is 9.3, neutrophils 78, platelets are 173. His initial BUN was 46 with a creatinine of 1.23, I do not see a repeat. INR was initially 9.4, went down to 0.9, it is now up to 4.0. His COVID was negative. His hemoglobin A1c was 7.5. His BNP was initially 2120. His lactic acid was 0.9. His albumin is 3.0. His left ventricular ejection fraction is 35-40% and CRP was up a little at 21.6. Blood sugars have been right around 200. RADIOGRAPHIC STUDIES: None. ASSESSMENT/PLAN: Nestor is an 85-year-old significantly disabled gentleman. He is in need for his anticoagulation because of the atrial fibrillation and DVT in his right upper extremity. However, he is having trouble here with rectal bleeding. I explained to Nestor and his his current situation. It is a very difficult situation. However, if he continues to bleed, he may have to consider discontinuing his anticoagulation altogether. He is a very poor surgical candidate, even for upper and lower endoscopy, he is high risk. They are very familiar with upper lower endoscopy. They understand there is risk including, but not limited to gas bloating, crampy abdominal pain, bleeding, perforation requiring surgery, and missed diagnosis. They have expressed understanding and would like to go through the bowel prep today and will reassess in the morning. Of course, he would need monitored anesthesia care. They expressed understanding and agreed to above plan. Vicki Faye MD Electronically Signed By: VICKI FAYE MD 11/19/20 0626 PATIENT NAME: NESTOR YANEZ CONSULTATION DATE OF : 35 REPORT #: [id number] PHYSICIAN: VICKI FAYE MD PCP: MAXIMILIANO MEIER MD REPORT IS CONFIDENTIAL AND NOT TO BE RELEASED WITHOUT AUTHORIZATION [place] [id number] [facility] [place], [place] [address] Signed ALB/MODL /[id number] cc: MD Noah Caceres MD Copies: VICKI FAYE MD, ROBERT D DMD ~ Electronically Signed By: VICKI FAYE MD 11/19/20 0626 PATIENT NAME: NESTOR YANEZ CONSULTATION DATE OF : 35 REPORT #: [id number] PHYSICIAN: VICKI FAYE MD PCP: MAXIMILIANO MEIER MD REPORT IS CONFIDENTIAL AND NOT TO BE RELEASED WITHOUT AUTHORIZATION
--- NOTE | 2020-11-19 07:30 | NUR ---
PATIENT SHIFT REPORT RECIEVED FROM PIG CASTER RN. PATIENT RESTING AT THIS TIME. PATIENTS ARRIVED AND AT THE BEDSIDE. PER REPORT PATIENT NPO SINCE MIDNIGHT. WILL CONTINUE TO CLOSELY MONITOR.
--- NOTE | 2020-11-19 09:00 | NUR ---
PER AM MEETING AND MD UPDATE, PATIENT IS SCHEDULED FOR CSCOPE LATER TODAY. NO CHANGES IN DISCHARGE PLAN AT THIS TIME, WILL CONTINUE TO ROUND ON PATIENT DURING HIS STAY.
--- NOTE | 2020-11-19 09:30 | NUR ---
PATIENT ASSESSMENT COMPLETED. PATIENT RESTING IN BED. THIS RN CHANGED PATIENTS ATTENDS AND BEDDING. STAFF REPOSITIONED PATIENT FOR COMFORT ON HIS SIDE. PATIENT TOLERATED WELL. PATIENTS BREATH SOUNDS ARE CLEAR. BOWEL TONES ACTIVE. PATIENT DENIES DIZZINESS AND SOB. PATIENTS AT THE BEDSIDE. WILL CONTINUE TO CLOSELY MONITOR.
--- NOTE | 2020-11-19 11:50 | NUR ---
LYNDON RN HERE TO TAKE PATIENT FOR PROCEDURE. PATIENT TRANSFERED TO THE [facility]. PATIENT TOELRATED WELL. NO OTHER NEEDS AT THIS TIME. WILL WAIT FOR PATIENT TO RETURN.
--- NOTE | 2020-11-19 12:12 | NUR ---
PT WAS ASLEEP, HE IS TO HAVE EGD LATER TODAY. KERWIN IN , LOVING WATCHING OVER PT. GAVE ENCOURAGEMENT, AND GOT HER SOME WATER. WILL FOLLOW NEEDED
--- NOTE | 2020-11-19 14:00 | NUR ---
11/19/20 1400 Jie Carlson 1351- PT ARRIVES TO CCU ROOM #129 FOR RECOVERY. PT OPENS HIS EYES TO STIMULI. DOES NOT ANSWER QUESTIONS AT THIS TIME AND FALLS RIGHT BACK TO SLEEP WHEN NOT BEING TALKED TO. RESP EVEN AND UNLABORED. OXYGEN SAT MID 90'S ON 4L VIA NC. 1358- KB FROM RT AT THE BEDSIDE TO PLACE A NASAL O2 PROBE THE FINGER PULSE OX IS READING INTERMITTENTLY. OXYGEN SAT HIGH 90'S ON 4L VIA NC. OXYGEN TITRATED DOWN TO 2L VIA NC.
--- NOTE | 2020-11-19 14:26 | NUR ---
PATIENT ARRIVED BACK FORM PROCEDURE. PATIENT AWAKENS TO VOICE, BUT QUICKLY FALLS BACK TO SLEEP. PATIENT TOLERATED PROCEDURE WELL. NEYDA EXPLAINED FINDINGS TO PATIENTS . PATIENTS NOW AT THE BEDSIDE. NO OTHER ENEDS AT THIS TIME. WILL CONTINUE TO CLOSELY MONITOR.
--- NOTE | 2020-11-19 15:44 | NUR ---
PATIENT CALLED AND STATED HE ACCIDENTALLY REMOVED HIS NASAL CANNULA. PATIENT DENIES ANY NEEDS AT THIS TIME. REPLACED NASAL CANNUAL AT 1L. WILL MONITOR SPO2. DINNER ORDERED. PATIENT DENIES ANY OTHER NEEDS. WILL CONTINUE TO CLOSELY MONITOR.
--- NOTE | 2020-11-19 17:29 | NUR ---
THIS RN IN TO ASSIST PATIENT. ATTENDS CHANGED. BEDDING CHANGED. PATIENT BOOSTED UP IN BED AND REPOSITIONED. ASSISTED PATIENT WITH HIS DINNER AND ENSURE. PATIENT TOLERATED WELL. PATIENT UPDATED ON PLAN OF CARE. ALL QUESTIONS ANSWERED. WILL CONTINUE TO CLOSELY MONITOR.
--- NOTE | 2020-11-19 18:16 | OR ---
[facility] [address], [place] [address] Signed DATE OF OPERATION: 11/19/2020 SURGEON: Vicki Faye MD PREOPERATIVE DIAGNOSES: 1. Gastrointestinal bleed. 2. Weight loss. 3. Diverticulosis. POSTOPERATIVE DIAGNOSES: 1. Small hiatal hernia. 2. Moderate diverticulosis, left greater than right. 3. Moderate internal hemorrhoids. PROCEDURES: 1. EGD without biopsy. 2. Colonoscopy without biopsy. FINDINGS: No evidence of active bleeding. INDICATIONS: Nestor is an 85-year-old significantly disabled gentleman with a rather significant past medical history including his chronic atrial fibrillation and right upper extremity DVT around 2 months ago. His Coumadin dosing had been increased and he started having rectal bleeding. His INR was found to be 9. He had the Coumadin reversed and stopped bleeding. He had at least 3 brown bowel movements. It was felt that he would benefit by going back on the Eliquis rather than the Coumadin. Unfortunately, started bleeding again. I had been asked by the Internal Medicine service to come and see him in consultation for consideration of upper and lower endoscopy. I had met with Nestor and his and we had a very long discussion regarding his age and his overall functional status as well as his rather significant past medical history including his severe pulmonary hypertension. He represents increased risk for any procedures including upper and lower endoscopy. I know Nestor and his from many years ago. They expressed their desire to proceed with upper and lower endoscopy. They are aware of the risks including, but not limited to gas bloating, crampy abdominal pain, bleeding, perforation requiring surgery, and missed diagnosis. They had expressed understanding and wished to proceed. Due to his advanced age and medical issues, we did have an anesthesia provider help us with monitored anesthesia care. Of course, that was absolutely necessary and proved to be a serrano decision. Electronically Signed By: VICKI FAYE MD 11/19/20 2613 PATIENT NAME: NESTOR YANEZ CAMI OPERATIVE REPORT DATE OF : 35 REPORT #: [id number] PHYSICIAN: VICKI FAYE MD PCP: MAXIMILIANO MEIER MD REPORT IS CONFIDENTIAL AND NOT TO BE RELEASED WITHOUT AUTHORIZATION [facility] [address], [place] [address] Signed PROCEDURE NOTE: Nestor was taken into our endoscopy suite and placed in the supine semi-recumbent position. He was given monitored anesthesia care including ketamine and propofol per our nurse freight car cleaner. A bite block was utilized for the case. The adult gastroscope was introduced and advanced out into the 3rd portion of the duodenum. The duodenum and pyloric channel were unremarkable. The entire stomach was unremarkable. Upon retroflexion of the scope, he has a small hiatal hernia consistent with his history of acid reflux. There was no blood whatsoever anywhere on the upper endoscopy. There was no old or new source of bleeding. We withdrew the scope up through the area of the GE junction, which was compliant without stricture. There was no distal esophagitis. No Gómez's mucosa. The middle and upper esophagus were unremarkable. After this, the gas was suctioned out and the gastroscope removed. Nestor tolerated the procedure quite well. Nestor was rotated into the left lateral decubitus position. He was maintained on IV sedation per our nurse freight car cleaner. A digital rectal exam was performed and he does have a moderately enlarged and indurated prostate gland, otherwise no masses noted. The adult colonoscope was then introduced and advanced carefully under direct visualization up to the cecum itself. It took some mild abdominal compression in order to advance the scope. His prep was quite good. We could easily see the appendiceal orifice and the ileocecal valve. We took pictures throughout for photodocumentation. He does have a few diverticula on the right, but mostly in the sigmoid colon. They were moderate in size, moderate in number, and scattered about. He had a little bit of old liquidy blood in the sigmoid colon and rectum, but the rest of the colon was completely clean. We saw no evidence of any recurrent bleeding, particularly from the diverticuli. We actually took a significant amount of time coming through those areas and irrigating directly into the diverticuli themselves and never could find any source of bleeding. The rectum itself was unremarkable. Upon retroflexion of the scope, he has moderate internal hemorrhoids. After this, the gas was suctioned out. The colonoscope removed. Nestor tolerated the procedure quite well. RECOMMENDATIONS: Nestor will be returned to his ICU bed. We will resume his diet. I will review this with his and the Internal Medicine Service. Vicki Faye MD Electronically Signed By: VICKI FAYE MD 11/19/20 1816 PATIENT NAME: NESTOR YANEZ CAMI OPERATIVE REPORT DATE OF : 35 REPORT #: [id number] PHYSICIAN: VICKI FAYE MD PCP: MAXIMILIANO MEIER MD REPORT IS CONFIDENTIAL AND NOT TO BE RELEASED WITHOUT AUTHORIZATION [address], [place] [address] Signed ALB/MODL /[id number] cc: Vicki Faye MD Chart Filed Incomplete Danni Go MD Copies: VICKI FAYE MD CHART FILED INCOMPLETE DANNI GO DMD ~ Electronically Signed By: VICKI FAYE MD 11/19/20 1816 PATIENT NAME: BEAUNESTOR CAMI OPERATIVE REPORT DATE OF : 35 REPORT #: [id number] PHYSICIAN: VICKI FAYE MD PCP: MAXIMILIANO MEIER MD REPORT IS CONFIDENTIAL AND NOT TO BE RELEASED WITHOUT AUTHORIZATION
--- NOTE | 2020-11-19 18:49 | NUR ---
RASCH HERE TO CHECK ON PATIENT. PER NEW ORDERS TO TRANSFER PATIENT TO THE MEDICAL UNIT. CALLED AND UPDATED MS STAFF. WILL TRANSFER PATIENT AFTER SHIFT CHANGE. NO OTHER NEEDS AT THIS TIME. PATIENT REPOSITIONED WITH PILLOW SUPPORT.
--- NOTE | 2020-11-19 20:00 | NUR ---
IN TO GET PT VITALS, PT ARRIVED FROM CCU, RT IN AT THIS TIME
--- NOTE | 2020-11-19 20:00 | NUR ---
SHIFT REPORT RECEIVED FROM DADA LYNCH. PT CALLED AT THIS TIME, HE HAD GOTTEN HIS LEGS OVER THE SIDE OF THE BED AND NEEDED HELP GETTING RE-ADJUSTED IN BED. PT BOOSTED UP IN BED AND TILTED ON LEFT SIDE WITH PILLOW SUPPORT. PT REPORTS 5/10 COCCYX AND RIGHT WRIST PAIN, PRN OXYCODONE GIVEN. VITAL SIGNS STABLE. REPORT GIVEN TO OPAL AND PT TRANSFERRED WITH ALL BELONGINGS TO ROOM 114 AT THIS TIME.
--- NOTE | 2020-11-19 22:01 | NUR ---
pt arrived at 1999 from ccu, awake, alert, cooperative, alert and oriented. received a neb tx. was medicated prior to transfer, denies needing anything for chronic pain at this time. used urinal, voided small amounts dark yellow urine. tolerating fluids well, no emesis, turns self in bed, on room air
--- NOTE | 2020-11-20 01:22 | NUR ---
RESTING, NO DISTRESS, EYES CLOSED, TURNS SELF IN BED
--- NOTE | 2020-11-20 03:33 | NUR ---
awake, c/o R arm and back pain, medicated with oxycodone 2.5mg po. was incontinent of large amounts of urine, skin care, allevyn to buttocks in place, red myles area, barrier cream applied. clean attends in place, and whole bed linen and gown changed, procedure explained semi cooperative. On room air. took sips of ensure and water, tolerated well. SL L FA and L foot.
--- NOTE | 2020-11-20 05:28 | NUR ---
Has slept most of this shift, was transferred from CCU at begining of shift. On room air, gets nebs, lungs with fine crackles at bases. turns and repositions self in bed. was incontinent of urine, attends kayce and ashlie bed and gown changed, skin care to red myles area. allevyn dressing to buttocks area. SL L foot, SCDS to R leg. SL L FA patent. RA elevated in pillows, skin cooler than rother extremities. pulses faint but palpable, has pacer and defibrilators in place, no c/o cp or sob. bruising over arms healing. tolerating sips of fluids well, medicated 2x with Oxycodone per c/o pain, effective. currently resting
--- NOTE | 2020-11-20 07:30 | NUR ---
THIS RN RECEIVED REPORT FROM OPAL GARLAND. PT APPEARS TO BE RESTING AT THIS TIME WITH RESPIRATIONS NOTED
--- NOTE | 2020-11-20 08:51 | NUR ---
Attempt to contact Tiffany Mcguire for transfer back to facility today. No answer. Message left to please call back this morning.
--- NOTE | 2020-11-20 09:20 | NUR ---
THIS RN TO GO IN PTS ROOM TO GIVE MORNING MEDS. PT GETTING NEBS AND IS VERY DROWSY THIS AM, THIS RN TO COME BACK LATER
--- NOTE | 2020-11-20 10:05 | NUR ---
THIS RN IN PTS ROOM TO GIVE PT HIS MORNIGN MEDS AND DO MORING ASSESSMENT. PT APPEARS VERY DROWSY THIS AM AND STATES THAT HE DOESN'T HAVE MUCH ENERGY. PT ALSO REPORTS HAVING A PAIN 5/10 THIS RN PROVIDED PT WITH 2.5MG OXY FOR PTS PAIN. THIS RN THEN REPOSTITIONED PT ONTO HIS LEFT HIP FOR COMFORT. PT STATES THAT HE IS COMFORTABLE AND NEEDS NOTHING FURTHER
--- NOTE | 2020-11-20 13:30 | NUR ---
THIS RN IN PTS ROOM TO REPOSITION PT. PT POSITIONED ONTO RIGHT HIP AND STATES THAT HE IS COMFORTABLE AT THIS TIME. PT REPORTS NEEDING NOTHING FURTHER
--- NOTE | 2020-11-20 18:10 | NUR ---
this rn in pts room to give pt his late afternoon meds. pt appears to be resting comfortably at this time but states that his pain has stayed the same throughout the day. this rn provided pt with 2.5mg oxy per pt request for pain. pt denied the desire to be turned at this time.
--- NOTE | 2020-11-20 19:54 | NUR ---
resting, no distress, eyes closed, skin slightly jaundiced , bruising all over body healing. R arm restricting, pulses distant but present. elevated in pillows, no requests, tolerating fluids well
--- NOTE | 2020-11-20 20:38 | NUR ---
ON ROOM AIR, LUNGS COARSE EXP AND DIM. DENIES SOB. UP TO CHAIR TOLERATED WELL, THENC/O FEELING DIZZY AND WANTED TO GO BACK TO BED, BACK TO BED WITH 2PA, WEAK LE. GOT NEB TX, NO SOB NOTED. ON AEROSOL PRECAUTIONS. INCONTINENT OF URINE SKIN BARRIER AND CLEAN ATTENDS ALLEVYN DRESSING TO UPPER BUTTOCKS AREA CHANGED, STRONG SMALL, YELLOW DRAINAGE. SL LARM AND L FOOT INTACT. FLUSHES EASILY. L ARM SLIGHTLY COLDER THAN LEFT, PULSES FAINT BUT PALPABLE, TRACE EDEMA. ELEVATED W PILLOWS. COOP WITH ASSESSMENT AND PROCEDURES
--- NOTE | 2020-11-20 22:27 | NUR ---
resting, eyes closed, no distress, restricted R arm elevated in pillows. fluids and call light at bedside, scds R leg, repositions self
--- NOTE | 2020-11-20 23:56 | NUR ---
resting, turns self in bed, call light and fluids at bedside, R leg elevated in pillows
--- NOTE | 2020-11-21 02:52 | NUR ---
RESTING, NO DISTRESS, LAYING ON R SIDE, CALL LIGHT AT BEDSIDE
--- NOTE | 2020-11-21 04:05 | NUR ---
Has slept well this shift. On room air, lungs coarase expiratory, no sob. gets nebds. Up to chair for a few minutes,m back to bed, Was incontinent of urine. clean attends in place. Allevyn dressing to buttocks/coccyx area changed. strong foul smell moist yellow drainage small amount. barrier cream to myles area. R arm restricted due to thrombus, elevated in pillows, slightly colder than L extremitiy. tender, was medicated with Oxycodone at change of shift, effective, no futher c/o. SL LFA and L foot present. SCD R foot only. bruising all over body healing.weak unsteady gait. tolerating liquids well. uses call light. on Aerosol precautions due to nebs tx
--- NOTE | 2020-11-21 05:07 | NUR ---
Incontinent of strong smelling urine, attends changed, skin care, lotion applied. Allevyn/coccyx area intact. Coop. Medicated with Oxycodone 2.5mg po 5/10 R wrist/arm/coccyx area pain. Repositioned inbed, very coperative, turns self in bed. tolerating sips of fluids. no emesis. coop with assessment, on room air, lungs with crackles at bases at this time. gets nebs. skin pale/jaundiced
--- NOTE | 2020-11-21 07:01 | NUR ---
Incontinent of urine, attend changed, cooperative, no c/o pain
--- NOTE | 2020-11-21 07:43 | NUR ---
this rn received report from chele loya. pt appears to be resting at this time with respirations noted
--- NOTE | 2020-11-21 12:40 | NUR ---
THIS RN IN PTS ROOM TO START PTS FIRST UNIT OF BLOOD. PT CONSENTS TO BLOOD AND STATES UNDERSTANDING OF POSSIBLE COMPLICATIONS AND SYMPTOMS. PTS AT BEDSIDE AND STATES UNDERSTANDING WELL.
--- NOTE | 2020-11-21 12:55 | NUR ---
15 MIN CHECK ON BLOOD ADMINISTATION. PT DENIES ANY SHORTNESS OF BREATH, RASH, FLUSHING, OR ABNORMAL MID BACK PAIN. PT TOLERATING BLOOD WELL. THIS RN TO DO 15MIN CHECK VITALS AND CONTINUE INFUSION. PT AND PTS STATE UNDERSTANDING ABOUT THE TEACHING THIS RN PROVIDED IN REGARD TO BLOOD ADMINISTRATION. PT REPORTS NEEDING NOTHING FURTHER AT THIS TIME.
--- NOTE | 2020-11-21 13:50 | NUR ---
pt put dental receptionist light to notify nurse to come look at his iv. this rn noted that pts left forearm iv had infiltrated to pts left forearm. pts iv had been infusing for about 1 hour. charge nurse maygun notfied and in to see site. site changed to other iv and forearm site removed. pt states that he has no noted pain just pressure. notified as well.
[2020-11-21] MEDS ORDERED: DIGITEK125 MCG PO (14:51)
[2020-11-21] MEDS ORDERED: METOPROLOL SUCC50 MG PO (14:56)
[2020-11-21] MEDS ORDERED: OXYCODONE HCL5 MG PO (14:57)
[2020-11-21] MEDS ORDERED: KLOR-CON 1010 MEQ PO (14:58)
[2020-11-21] MEDS ORDERED: TORSEMIDE20 MG PO (14:58)
[2020-11-21] MEDS ORDERED: PREDNISONE5 MG PO (14:59)
[2020-11-21] MEDS ORDERED: PANTOPRAZOLE SO40 MG PO (14:59)
--- NOTE | 2020-11-21 15:00 | NUR ---
THIS RN IN PTS ROOM TO GIVE PT MEDS AND CHECK TO SEE HOW BLOOD IS GOING. BLOOD APPEARS TO BE GOING WELL IN THE LEFT FOOT
[2020-11-21] MEDS ORDERED: ALLOPURINOL100 MG PO (15:01)
--- NOTE | 2020-11-21 17:15 | NUR ---
THIS RN IN PTS ROOM TO START PTS SECOND UNIT OF BLOOD. PT STATES THAT HE HAS NO CONCERNS AND IS DOING WELL. PTS AT BEDSIDE
--- NOTE | 2020-11-21 17:30 | NUR ---
15 MIN CHECK COMPLETE ON 2ND UNIT OF BLOOD. PT STATES THAT HE FEELS LIKE HE IS TOLERATING WELL AND NEEDS NOTHING AT THIS TIME. THIS RN REPOSITIONED PT AND CHANGED HIS BRIEF AND MAGDA AT THIS TIME. APPEARS TO HAVE BEEN 3 LARGE INCONTINENCE URINES IN THE TIME PERIOD. PTS LEAVING TO GO HOME AT THIS TIME. BLOOD TURNED UP TO INFUSE AT 90ML/HR IN THE LEFT ANKLE
--- NOTE | 2020-11-21 18:40 | NUR ---
THIS RN IN PTS ROOM TO [facility] EPT HIS EVENING MEDS. PTS BLOOD STILL INSUSING WELL AT THIS TIME AT THE LEFT LOWER LEG SITE. PT STATES THAT HE IS DOING WELL AND IS HAVING NO SYMPTOMS OF COMPLICATIONS FROM BLOOD.
--- NOTE | 2020-11-21 19:47 | NUR ---
PT AWAKE, WATCHING TV, 2ND BAG OF PRBC INFUSING. NO C/O PAIN.
--- NOTE | 2020-11-21 20:03 | NUR ---
AWAKE, WATCHING TV. NO C/O ADVERSE REACTION TO BLOOD INFUSION. 2ND UNIT INFUSING
--- NOTE | 2020-11-21 22:32 | NUR ---
2nd unit of blood completed at 2145, no c/o adverse reaction to transfusion. blood sample obtain and sent to lab. Pt medicated with Tylenol /o pain back and R wrist. Incontinent of large amount of urine, cskin care, barrier cream to red r groing and myles area and buttocks, allevyn to coocys area intact. cooperative, clean attends, helpful with turning and repositioning. R arm elevated with pillows restrictted extremities. R ARM blood infiltration area expanding, hematoma, decreaed in size, good cms, no c/o pain. elevated w pillows
--- NOTE | 2020-11-22 01:45 | NUR ---
RESTING, EYES CLOSED, HOB ELEVATED, NO DISTRESS, CALL LIGHT AND FLUIDS AT BEDSIDE
--- NOTE | 2020-11-22 04:15 | NUR ---
Incontinent of urine, attends changed. lotion to reddened area. repositono raised area left arm from old infiltration. c/o 09/25 R wrist and back pain. medicated with tylenol and oxycodone 2.5mg .call light at hand reach
--- NOTE | 2020-11-22 05:34 | NUR ---
Was medicated with Tylenol 2X and Oxycodone 2.5 X1 per back and R wrist pain, effective. turns and repositions self. On room air, lungs much improved, dim at bases, denies sob, gets nebs. Received 2 units of PRBC yesterday, f/u hgb after completion of second units. hgb 10.7. MD aware. tolerating fluids well, Has been incontinent ofmurine several times, uses attends, skin care and barrier cream applied to r gron and periarea. allevyn dressing to coccyx area changed yesterday. SL L foot, patent. scds R foot. Restricted R arm . L arm IVF/blood infiltration w/o changes, uses arms very well, no c/o pain L arm, both elevated. uses call light
--- NOTE | 2020-11-22 07:34 | NUR ---
SHIFT REPORT FROM NURSE JOSEPH. PT APPEARS TO BE SLEEPING, EYES CLOSED, EVEN UNLABORED BREATHING NOTED. CALL LIGHT WITHIN REACH.
--- NOTE | 2020-11-22 08:58 | NUR ---
SPOKE WITH DR ARREDONDO RE: LOW BP/MEDS. CURRENT MANUAL BP IS 88/48, HR 119-126. PER DR ARREDONDO HOLD TORSEMIDE AT THIS TIME.
--- NOTE | 2020-11-22 09:30 | NUR ---
IN ROOM TO ADMINISTER MEDS AND ASSESSMENT. PT IS INTERACTIVE AND ALERT; PT HAS CONCERNS OVER BANDAGE ON LEFT HEEL. WILL CHANGE TODAY. PT IS CURRENTLY DRY IN DEPENDS. BOWEL TONES ACTIVE, LUNG SOUNDS CLEAR. PT REPORTS NO SOB. PT C/O OF PAIN/ACHE IN LEFT ARCH OF FOOT. NO APPARENT CHANGES TO SKIN, NO SWELLING. WILL ATTEMPT GABAPENTIN AT THIS TIME AND THEN PRN MEDS IF NEEDED. LT ARM BRUISING NEARLY COVERS ENTIRE ARM. PT ATE APPROX 90% OF BREAKFAST. PT'S IS AT BEDSIDE. NO FURTHER NEEDS AT THIS TIME.
--- NOTE | 2020-11-22 09:45 | NUR ---
SPOKE WITH PRITI AT T, PATIENT IS OKAY TO RETURN TODAY. ORDERS, PASSR AND RX FAXED TO [facility]. WILL SET UP WC TRANSPORT PER PATIENT AND WIFES REQUEST.
--- NOTE | 2020-11-22 09:55 | NUR ---
PATIENTS VITALS TAKEN BY RN. REFRESHED WATER. IN ROOM CALL LIGHT IN REACH I&O'S CHARTED.
--- NOTE | 2020-11-22 09:56 | NUR ---
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 ADAM MEJIA RN AND ANA GARLAND NOTIFIED.
--- NOTE | 2020-11-22 10:00 | NUR ---
WENT IN ROOM TO DISCUSS TRANSPORT FOR D/C WITH PT AND PT'S . THEY WOULD LIKE TRANSPORT ARRANGED FOR THEM. LUH NELSON INFORMED.
[2020-11-22] MEDS ORDERED: POTASSIUM CHLOR8 ME1 PO (10:20)
[2020-11-22] MEDS ORDERED: TORSEMIDE10 MG PO (10:20)
--- NOTE | 2020-11-22 11:00 | NUR ---
CALLED DR CROUCH RE: LT HEEL BANDAGE. PER DR CROUCH CHANGE BANDAGE TODAY: CLEAN WITH GAUZE AND SALINE, COVER WITH NON STICK GAUZE AND IDOSORB, OPSITE. SCRUBS FOUND FOR PT TO WEAR HOME HE HAS NO CLOTHES HERE.
--- NOTE | 2020-11-22 12:45 | NUR ---
PT DISCHARGED TO [facility] WITH PT'S ACCOMPANING PT WITH WHEELCHAIR TRANSPORT.
== END 2020-11-22 12:45 | DRG 813 ==
LOC: ED 08:27 → CCU 08:28 → MS 11-17 09:05 → CCU 11-17 09:06 → MS 11-19 19:56
PROVIDERS: Colon & Rectal Surgery; ADMIT Student in an Organized Health Care Education/Training Program; ATTEND Student in an Organized Health Care Education/Training Program
PROC: 0DJ08ZZ Inspection of Upper Intestinal Tract, Via Natural or Artificial Opening Endoscopic (ICD-10-PCS; principal; 2020-11-19 13:00)
PROC: 0DJD8ZZ Inspection of Lower Intestinal Tract, Via Natural or Artificial Opening Endoscopic (ICD-10-PCS; 2020-11-19 13:00)
PROC: 30233N1 Transfusion of Nonautologous Red Blood Cells into Peripheral Vein, Percutaneous Approach (ICD-10-PCS; 2020-11-21)
DX: D68.32 Hemorrhagic disorder due to extrinsic circulating anticoagulants (principal); K92.2 Gastrointestinal hemorrhage, unspecified; D62 Acute posthemorrhagic anemia; I13.0 Hypertensive heart and chronic kidney disease with heart failure and stage 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, or unspecified chronic kidney disease; I50.22 Chronic systolic (congestive) heart failure; I82.621 Acute embolism and thrombosis of deep veins of right upper extremity; R64 Cachexia; Z20.822 Contact with and (suspected) exposure to COVID-19; T45.515A Adverse effect of anticoagulants, initial encounter; K44.9 Diaphragmatic hernia without obstruction or gangrene; K57.30 Diverticulosis of large intestine without perforation or abscess without bleeding; N18.30 Chronic kidney disease, stage 3 unspecified; E11.22 Type 2 diabetes mellitus with diabetic chronic kidney disease; E11.51 Type 2 diabetes mellitus with diabetic peripheral angiopathy without gangrene; L89.92 Pressure ulcer of unspecified site, stage 2; I25.10 Atherosclerotic heart disease of native coronary artery without angina pectoris; J44.9 Chronic obstructive pulmonary disease, unspecified; I48.0 Paroxysmal atrial fibrillation; M10.9 Gout, unspecified; I27.20 Pulmonary hypertension, unspecified; K64.8 Other hemorrhoids; G89.4 Chronic pain syndrome; Z66 Do not resuscitate; Z88.1 Allergy status to other antibiotic agents; Z88.8 Allergy status to other drugs, medicaments and biological substances; Z79.4 Long term (current) use of insulin; Z79.51 Long term (current) use of inhaled steroids; Z79.52 Long term (current) use of systemic steroids; Z79.899 Other long term (current) drug therapy
CPT/HCPCS: 36415; 36430; 80048; 80053; 80162; 83735; 85018; 85025; 85027; 85610; 85730; 86850; 86900; 86901; 86920; 93005; 93010; 93971; 94640; 94760; 96365; 96375; 97110; 97116; 97165; 99285-25; C9113; C9132; C9803; J1650; J1815; J2001; J2405; J2704; J3430; J3475; J7121; P9016; U0003

== ENCOUNTER 2020-12-31 02:34 | Inpatient (IN) | payer MEDICARE, OTHER ==
[~2020-12-31] VITALS: Ht 170.2 cm; Wt 53.8 kg
[~2020-12-31 02:34] MED LIST changes: +GLUCAGON EMERGEN1 M1 IJ; +HUMALOG100 UNIT/2 SUB-Q; +METOPROLOL SUCC50 MG PO; +POTASSIUM CHLOR8 ME1 PO; +TORSEMIDE10 MG PO; +VITAMIN D325 MC2 PO
--- OUTSIDE RECORDS SUMMARY | 2020-12-31 02:36 | XMS ---
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 Events No recent Security Events currently on file CRITERIA MET - 6 ED Visits in 6 Months - PDMP CARE PROVIDERS SUSANA COSME Lacquer Sprayer Current SHIMON Tai PHONE: [phone] LAURIE SARMIENTO Internal Medicine Current PHONE: [phone] JOMAR HERNDON Nurse Practitioner Current PHONE: [phone] DANNI GO [facility] 09/01/2020-Current PHONE: [phone] GISELL JORDAN Nurse Practitioner: Family Current PHONE: [phone] BANG CROUCH Lacquer Sprayer Current EVENS MIRAMONTES PHONE: [phone] STEFFANY Nurse Leelee Current ARRON DOMINGUEZ PHONE: [phone] [facility] Current PHONE: [phone] LETICIA ARENAS [facility] Current PHONE: [phone] [facility] PHONE: [phone] Phan has no Care Guidelines for this patient. Jay VISIT COUNT (12 MO.) 6 ELIZABETH Saenz TOTAL 6 NOTE: Visits indicate total known visits. ED/UCC VISIT TRACKING (12 MO.) 12/31/2020 02:34 [facility] [place] TYPE: Emergency COMPLAINT: - FALL 11/14/2020 08:27 [facility] [place] [...] Hyperlipidemia, unspecified - Atherosclerotic heart disease of [place] coronary artery without angina pectoris - Non-pressure chronic ulcer of other part of left foot with unspecified severity - Allergy status to other drugs, medicaments and biological substances - Personal history of nicotine dependence - meterman (current) use of anticoagulants - Allergy status to analgesic agent - long-term (current) use of systemic steroids - Allergy status to other antibiotic agents - Unspecified atrial fibrillation - Other intermediate manager (current) drug therapy 08/31/2020 12:17 [facility] [place] TYPE: Emergency COMPLAINT: - COPD INPATIENT VISIT TRACKING (12 MO.) 11/17/2020 09:05 [facility] [place] TYPE: Medical Surgical COMPLAINT: - GI BLEED DIAGNOSES: - Paroxysmal atrial fibrillation - Pulmonary hypertension, unspecified - Diaphragmatic hernia without obstruction or gangrene - meterman (current) use of inhaled steroids - Type 2 diabetes mellitus with diabetic chronic kidney disease - long-term (current) use of insulin - Gout, unspecified - Chronic systolic (congestive) heart failure - Gastrointestinal hemorrhage, unspecified - Do not resuscitate - Hemorrhagic disorder due to extrinsic circulating anticoagulants - Pulmonary hypertension, unspecified - Chronic obstructive pulmonary disease, unspecified - Hypertensive heart and chronic kidney disease with heart failure and stage 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, or unspecified chronic kidney disease - meterman (current) use of systemic steroids - Acute embolism and thrombosis of deep veins of right upper extremity - Gout, unspecified - long-term (current) use of inhaled steroids - Acute embolism and thrombosis of deep veins of right upper extremity - Other intermediate manager (current) drug therapy - long-term (current) use of systemic steroids - Diaphragmatic hernia without obstruction or gangrene - Hemorrhagic disorder due to extrinsic circulating anticoagulants - Cachexia - Chronic pain syndrome - Chronic kidney disease, stage 3 unspecified - Chronic systolic (congestive) heart failure - Adverse effect of anticoagulants, initial encounter - Other intermediate manager (current) drug therapy - Atherosclerotic heart disease of [place] coronary artery without angina pectoris - Diverticulosis of large intestine without perforation or abscess without bleeding - Acute posthemorrhagic anemia - Chronic obstructive pulmonary disease, unspecified - Other hemorrhoids - Cachexia - Allergy status to other antibiotic agents - Paroxysmal atrial fibrillation - Type 2 diabetes mellitus with diabetic peripheral angiopathy without gangrene - Type 2 diabetes mellitus with diabetic chronic kidney disease - Atherosclerotic heart disease of [place] coronary artery without angina pectoris - Allergy status to other drugs, medicaments and biological substances - Pressure ulcer of unspecified site, stage 2 - Allergy status to other antibiotic agents - Diverticulosis of large intestine without perforation or abscess without bleeding - Adverse effect of anticoagulants, initial encounter - Pressure ulcer of unspecified site, stage 2 - Acute posthemorrhagic anemia - Hypertensive heart and chronic kidney disease with heart failure and stage 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, or unspecified chronic kidney disease - meterman (current) use of insulin - Allergy status to other drugs, medicaments and biological substances - Do not resuscitate - Type 2 diabetes mellitus with diabetic peripheral angiopathy without gangrene - Gastrointestinal hemorrhage, unspecified - Other hemorrhoids - Melena - Chronic kidney disease, stage 3 unspecified - Chronic pain syndrome 10/31/2020 02:30 [facility] [place] TYPE: Observation COMPLAINT: - WEAKNESS DIAGNOSES: - Chronic kidney disease, unspecified - Weakness - Allergy status to analgesic agent - Cellulitis of left lower limb - Atherosclerotic heart disease of [place] coronary artery without angina pectoris - meterman (current) use of oral hypoglycemic drugs - [...] - Personal history of nicotine dependence - long-term (current) use of systemic steroids - Allergy status to other antibiotic agents - Weakness - Gout, unspecified - Pulmonary hypertension, unspecified - Other disorders of bilirubin metabolism - Paroxysmal atrial fibrillation - meterman (current) use of anticoagulants - Type 2 diabetes mellitus with other skin complications - Chronic obstructive pulmonary disease, unspecified 10/09/2020 10:05 [facility] [place] TYPE: Medical Surgical COMPLAINT: - TC DIABETIC WOUND DIAGNOSES: - Acute on chronic systolic (congestive) heart failure - long-term (current) use of systemic steroids - Pulmonary hypertension, unspecified - long-term (current) use of inhaled steroids - Type 2 diabetes mellitus with foot ulcer - long-term (current) use of anticoagulants - meterman (current) use of oral hypoglycemic drugs - Allergy status to other antibiotic agents - long-term (current) use of oral hypoglycemic drugs - Allergy status to other antibiotic agents - Other intermediate manager (current) drug therapy - Paroxysmal atrial fibrillation - Acute kidney failure, unspecified - meterman (current) use of anticoagulants - Non-pressure chronic ulcer of left heel and midfoot with fat layer exposed - Non-pressure chronic ulcer of left heel and midfoot with fat layer exposed - Atherosclerotic heart disease of [place] coronary artery without angina pectoris - Acute [...] kidney disease - Atherosclerotic heart disease of [place] coronary artery without angina pectoris - Chronic obstructive pulmonary disease, unspecified - Allergy status to other drugs, medicaments and biological substances - long-term (current) use of systemic steroids - Allergy status to other drugs, medicaments and biological substances - Acute embolism and thrombosis of deep veins of right upper extremity - Acute on chronic systolic (congestive) heart failure - Gout, unspecified - Chronic kidney disease, unspecified - Other care home (current) drug therapy - Chronic kidney disease, unspecified - long-term (current) use of inhaled steroids 10/04/2020 14:07 [facility] [place] TYPE: Medical Surgical COMPLAINT: - DIABETIC WOUND DIAGNOSES: - Paroxysmal atrial fibrillation - meterman (current) use of systemic steroids - Cellulitis of left lower limb - Acute pyelonephritis - Type 2 diabetes mellitus with diabetic peripheral angiopathy without gangrene - Cellulitis of right lower limb - Adverse effect of cephalosporins and other beta-lactam antibiotics, initial encounter - Other care home (current) drug therapy - Allergy status to other antibiotic agents - Chronic obstructive pulmonary disease, unspecified - Personal history of nicotine dependence - Chronic kidney disease, unspecified - Atherosclerotic heart disease of [place] coronary artery without angina pectoris - Acute kidney failure, unspecified - Type 2 diabetes mellitus with diabetic chronic kidney disease - Allergy status to other drugs, medicaments and biological substances - Unspecified open wound, left foot, initial encounter 09/16/2020 03:17 [place] [place] TYPE: Medical Surgical COMPLAINT: - GOUTY ARTHRITIS [...] disease, unspecified 13. Atherosclerotic heart disease of [place] coronary artery without angina pectoris 14. Tachycardia, [...] of both mitral and tricuspid valves - long-term (current) use of oral hypoglycemic drugs - Chronic kidney disease, unspecified - Adverse effect of glucocorticoids and synthetic analogues, initial encounter - Type 2 diabetes mellitus with hyperglycemia - meterman (current) use of systemic steroids - Type 2 diabetes mellitus with diabetic chronic kidney disease - Acute respiratory failure with hypoxia - meterman (current) use of inhaled steroids - Atherosclerotic heart disease of [place] coronary artery without angina pectoris - Type 2 diabetes mellitus with hypoglycemia without coma - Acute kidney failure, unspecified - Myocardial infarction type 2 - Chronic obstructive pulmonary disease with (acute) exacerbation - long-term (current) use of anticoagulants - Cardiomyopathy, unspecified - Other care home (current) drug therapy - Unspecified place in hospital as the place of occurrence of the external cause - meterman (current) use of antithrombotics/antiplatelets - Adverse effect of insulin and oral hypoglycemic [antidiabetic] drugs, initial encounter [email or web address]
[2020-12-31] MEDS ORDERED: WARFARIN SODIUM3 MG PO (02:59)
[2020-12-31] MEDS ORDERED: DIGOXIN125 MCG PO (03:01)
[2020-12-31] MEDS ORDERED: KLOR-CON 88 MEQ PO (03:05)
[2020-12-31] MEDS ORDERED: METOPROLOL TART50 MG PO (03:08)
[2020-12-31] MEDS ORDERED: TORSEMIDE5 MG PO ×2 (03:10→15:59)
[2020-12-31] MEDS ORDERED: BUDESONIDE0.25 MG/2 INH (09:08)
--- NOTE | 2020-12-31 11:45 | NUR ---
STANDBY ASSIST TO BEDSIDE COMMODE. CONTINENT OF URINE AND SMALL STOOL. GAIT SLIGHTLY UNSTEADY, USUALLY USES WALKER TO AMBULATE. RETURNS TO BED. NEUROS REMAIN UNCHANGED FROM ADMIT AT THIS TIME. REMAINS ALERT AND ORIENTED, NO INCREASING WEAKNESS NOTED. WALKER PROVIDED. DENIES OTHER NEEDS AND STATES MINIMAL PAIN IN HEAD, NO CHANGE FROM EARLIER THIS AM. CALL LIGHT IN REACH, BED RAILS UP X2.
--- NOTE | 2020-12-31 12:19 | NUR ---
PT ALERT, ORIENTED AND LAYING IN BED WITH KERWIN AT BS AND RN SCOOBY MORIN IN RM. PT HOPES TO GO HOME SOON, EXPLAINED HOW FALL HAPPENED. GAVE G.POST, BOTH REQUESTED PRAYER. WILL FOLLOW
--- NOTE | 2020-12-31 13:45 | NUR ---
INTO PATIENT ROOM, PATIENT AWAKE IN BED. PATIENT KERWIN AND SCOOBY RN AT BEDSIDE. DISCUSSED WITH PATIENT AND THEIR INTENTIONS FOR PATIENT TO DISCHARGE TO HOME. PATIENT KERWIN STATES THAT PATIENT WAS IMPROVING AT [facility]. SHE STATES "HE WAS UP WALKING THE HALLS AND RIDING THE BIKE UP UNTIL HIS FALL." KERWIN STATES THAT PATIENT WAS SET TO DISCHARGE FROM SNF NEXT WEEK. THIS RN ASKING PATIENTS IF SHE FEELS SHE WILL BE ABLE TO TAKE CARE OF PATIENT AT HOME, SHE STATES "OH YES." KERWIN STATES THAT HER FRIEND IS COMING TO STAY WITH THE COUPLE FOR THE WEEKEND AND HAS EXPERIENCE WITH PROVIDING 24 HOUR CARE OF FAMILY. WHEN DISCUSSING DISCHARGE WITH THE PATIENT HE IS ADAMANT THAT HE IS RETURNING HOME. PATIENTS KERWIN STATES SHE [facility]. THIS RN DISCUSSED WITH PATIENT AND THE WORRY THAT PATIENTS WILL NOT BE ABLE TO CARE FOR THE PATIENT AT HOME AND PATIENT WILL NEED TO RETURN TO THE ED POST DISCHARGED. AGAIN PATIENT AND PATIENTS WISH FOR PATIENT TO DISCHARGE HOME. REMINDED PATIENT AND OF RESOURCES FOR LIFT ASSIST AND DME. DR. GALLEGO UPDATED. WILL CONTINUE TO EVALUATE PATIENT DURING HIS VISIT.
--- NOTE | 2020-12-31 13:47 | NUR ---
PT RESTING IN BED SAFELY W/ CALL LIGHT IN REACH, PT WATCHING TV. A+O X3, CMS INTACT, EQUAL STRENGTH BILAT IN UE AND LE. PT C/O RAPHAEL, PRN TYLENOL GIVEN PER PT REQUEST/PROVIDER ORDER. PT GIVEN WARM BLANKET AND 7-UP UPON REQUEST, PT DENIES ANY OTHER NEEDS AT THIS TIME, AT BEDSIDE.
--- NOTE | 2020-12-31 14:33 | NUR ---
pt used call light sais he needed to use the bathroom, pt had a small bm, cook candy assisted pt to the bathroom, assisted pt back to bed when he was finished. no other needs at this time call light within reach. is in room with pt
[2020-12-31] MEDS ORDERED: MONTELUKAST SOD10 MG PO (15:58)
[2020-12-31] MEDS ORDERED: TOPROL XL25 MG PO (16:00)
[2020-12-31] MEDS ORDERED: POTASSIUM CHLO20 ME1 PO (16:02)
[2020-12-31] MEDS ORDERED: ALBUTEROL2.5 MG/3 M INH (16:05)
[2020-12-31] MEDS ORDERED: ALLOPURINOL100 MG PO (16:08)
--- NOTE | 2020-12-31 16:10 | NUR ---
PT IS RESTING IN BED W/ CALL LIGHT IN REACH, HOB ELEVATED. PT DENIES ANY NEEDS AT THIS TIME. AT BEDSIDE.
[2020-12-31] MEDS ORDERED: ARTHRITIS PAIN650 M2 PO (17:18)
[2020-12-31] MEDS ORDERED: COLACE100 MG PO (17:20)
[2020-12-31] MEDS ORDERED: LOVENOX60 MG SUB-Q (17:22)
[2020-12-31] MEDS ORDERED: FISH OIL 1,0001 EAC2 PO (17:23)
[2020-12-31] MEDS ORDERED: MAXITROL EYE DRO5 ML OS (17:26)
[2020-12-31] MEDS ORDERED: PROVENTIL HFA6.7 GM INH (17:29)
[2020-12-31] MEDS ORDERED: SANTYL30 GM TOP (17:30)
[2020-12-31] MEDS ORDERED: SYMBICORT 16010.2 GM INH (17:34)
[2020-12-31] MEDS ORDERED: ZOFRAN4 MG PO (17:35)
--- NOTE | 2020-12-31 17:36 | NUR ---
MED REC COMPLETE
--- NOTE | 2020-12-31 18:29 | NUR ---
PT ON BED REST W/ HOB ELEVATED. PT CALLS APPROPRIATELY, SBA, SBC, URINAL AT BEDSIDE. VSS ON RA, NEURO CHECKS Q2. PT A+O X3.
--- NOTE | 2020-12-31 19:33 | NUR ---
Up to bsc, increased unsteadiness L leg noted. voided and had small amount of yellow jay looking soft bm. back to bed. cooperative. On room air. HOB elevated. scabbing over area behind head. w scant amont of sanguineous drainage. allevyn over coccyx area . RT in room, pt gets nebs, alert and oriented, uses call light, tolerating fluids well.
--- NOTE | 2020-12-31 20:51 | NUR ---
up to bsc. unsteady le, 1pa. voided small amounts, no bm, back to bed. sob with exertion noted. on room air, tolerating flkuids well, CBG 123, no coverage, medicated with Tylenol 650mg po c/o h/a and back pain. coop with assessment.
--- NOTE | 2020-12-31 23:53 | NUR ---
Pt used urinal, voided qs urine, was laying jacknifed position in bed, repositioned in bed with assist. bed alrm on for fall precautions
--- NOTE | 2021-01-01 01:52 | NUR ---
pt used call light, up to edge of bed, used urinal, plus was incontinent of urine in attends and had smear of bm. back to bed, no c/o pain, no sob noted at this time. coop with assessment. uses call light, fluids at bedside
--- NOTE | 2021-01-01 02:59 | NUR ---
UP TO EDGE OF BED, USED URINAL, SMALL AMOUNTS, NO C/O PAIN, HELPED WITH REPOSITION IN BED, NO SOB NOTED AT THIS TIME. COOP. BED ALARM ON
--- NOTE | 2021-01-01 03:35 | NUR ---
TURNED CALL LIGHT ON, BED ALARM GOING OFF, WAS STANDING EDGE OF BED, UNSTEADY, GRABBING ONTO RAILS AND FEET DANGLING, BACK IN BED. HELPED TO A STANDING POSITION, VOIDID, BACK TO BED, SOB NOTED WITH EXERTION THIS TIME. BACK TO BED, HELPED REPOSITION, BED ALARM ON. FRESH FLUIDS GIVEN.
--- NOTE | 2021-01-01 05:23 | NUR ---
PT HAS SLEPT OFF AND ON THIS SHIFT, UP TO EDGE OF BED USING URINAL, OR BSC. VOIDING QS URINE YELLOW WITH SEDIMENT. HAD SMALL BM THIS SHIFT. ALERT, ORIENTED, FOLLOWS INSTRUCTIONS. WAS MEDICATED WITH TYLENOL PER C/O BACK OF HEAD PAIN AND BACK PAIN WITH GOOD PAIN RELIEF. SCABBED OVER AREAS BACK OF HEAD HEALING, NO FURTHER DRAINAGE. R ELBOW DRESSING INTACT. ALLEVYN DRESSING TO BURROCKS IN PACT. DRY SCALY SKIN. BED ALARM ON FALL PRECATUIONS, UNSTEADY GAIT SL PATENT. USES ATTENDS, ON ROOM AIR. LUNGS DIM AT BASES WITH CRACKLES, GETS NEBS. USES CALL LIGHT AND TOLERATING FLUIDS WELL, NO EMESIS. NO C/O SOB OR CP.
--- NOTE | 2021-01-01 06:41 | NUR ---
pt down for ct scant via w/c acompanied by DI staff
--- NOTE | 2021-01-01 07:30 | NUR ---
Shift report recieved from DADA Fonseca. Pt resting in bed safely w/ eyes closed, RR even and unlabored, call light in reach and bed alarm on.
--- NOTE | 2021-01-01 09:07 | NUR ---
Pt sitting up in chair w/ feet elevated and call light in reach. Morning assesment completed and scheduled medications administered per provider order. Dressing on R elbow changed. Pt A+O x3. Laceration on back of head w/ scab present and no active bleeding, pt c/o of soreness but denies need for PRN pain medication. Pt's in room. No other needs at this time
--- NOTE | 2021-01-01 10:17 | NUR ---
WENT IN THIS MORNING PATIENT NEEDED TO USE THE BEDSIDE COMMODE. HE SET UP IN THE CHAIR WHILE HE DRANK IS BREAKFAST AND WHILE I CHANGED HIS BED LINENS. HE ALSO USED THE MOUTH WASH.
--- NOTE | 2021-01-01 10:42 | NUR ---
Pt called to say he thought he had been incontinent of stool. SBA w/FWW at bedside pt had a small smear of BM, depends changed. Pt back in bed resting safely w/ HOB elevated and call light in reach. at bedside, no other needs at this time.
--- NOTE | 2021-01-01 13:28 | NUR ---
ASSISTED PT BACK TO BED FROM Bsc. PT RESTING SAFELY W/ HOB ELEVATED AND CALL LIGHT IN REACH. PT C/O RAPHAEL, PRN TYLENOL GIVEN PER PT REQUEST/PROVIDER ORDER. PT GIVEN DIET 7-UP PER REQUEST, DENIES ANY OTHER NEEDS AT THIS TIME.
--- NOTE | 2021-01-01 15:18 | NUR ---
PATIENT IS ON BED REST SO I ASKED HIM IF HE WOULD LIKE TO TAKE A SHOWER AND HE SAID SURE. SO I GOT EVERYTHING READY TO GIVE HIM A BED BATH. CLEAN GOWN, SOCKS NEW ATTENDS. ALSO PUT LOTION ON HIS LEGS,FEET AND ARMS. NURSE ALSO ORDERED HIS DINNER.
--- NOTE | 2021-01-01 18:30 | NUR ---
Pt resting in bed safely w/ call light in reach. Pt denies any needs at this time.
--- NOTE | 2021-01-01 19:17 | NUR ---
Used call light, up to BSC. tolerated well, bnack to bed 1PA. unsteady gait, alert and oriented, on room air. bed alarm on. sl patent
--- NOTE | 2021-01-01 19:50 | NUR ---
UP TO EDGE OF BED, VOIDED USING URINAL, BACK TO BED. USES CALL LIGHT, BED ALARM ON
--- NOTE | 2021-01-01 20:30 | NUR ---
USING CALL LIGHT, UP TO EDGE OF BED, VOIDED, USED URINAL, BACK TO BED, BED ALARM ON TOOK SIPS OF FLUIDS
--- NOTE | 2021-01-01 21:30 | NUR ---
UP TO BSC, VOIDED SMALL AMOUNTS, NO BM, BACK TO BED, 1PA, TOLERATED WELL, NO SOB, BED ALARM ON, FALL PRECAUTIONS
--- NOTE | 2021-01-01 23:46 | NUR ---
USED CALL LIGHT, UP TO EDGE OF BED, USED URINAL, VOIDED SCANT AMOUNT OF YELLOW URINE. BACK TO BED, BED ALARM ON.
--- NOTE | 2021-01-02 01:31 | NUR ---
BED ALARM GOING OFF, STANDING EDGE OF BED, UNSTEADY. USED URINAL, VOIDED SMALL AMOUNTS OF URINE. BACK TO BED. BED ALARM ON, CALL LIGHT AND FLUIDS AT BEDSIDE.
--- NOTE | 2021-01-02 04:08 | NUR ---
BED ALARM GOING OFF, STANDING EDGE OF BED. VOIDED USING URINAL. BACK TO BED, UNSTEADY GAIT. CONT TO REINFROCE FALL PRECAUTIONS AND TO CALL RN, STATED UNDERSTANDING, CALL LIHGT AT HANDS REACH IN BED. DID NOT USE. BED ALARM ON.
--- NOTE | 2021-01-02 05:00 | NUR ---
bed alarm gooing off, standing edge of bed, fall precautions explained, receptive. voided small amounts of urine in urinal, back to bed, helped with repositionin, sob with exertion noted at this time. does not use call light, call light at hands reach
--- NOTE | 2021-01-02 06:08 | NUR ---
pt has slept off and on. on room air, dim at bases. voiding frequest small amounts of urine. uses urinal, had small yellow soft bm. requires reminders of using call light and fall safety precautions, forgetful, tolerating diet well, no emesis, was medicated x1 with tylenol c/o h/a pain. Back of head scbbed over ganesh healing. L elbow open area covered with non adherent pad and diogenes wrap. allevyn to buttocks area in tact. multiple bruising healing. pleasant and coop. Call light and fluids at hands reach
--- NOTE | 2021-01-02 06:40 | NUR ---
to DI for head CT via w/e acomapnied by DI personnel. no c/o pain, alert and oriented
--- NOTE | 2021-01-02 07:38 | NUR ---
Shift report recieved from DADA Fonseca. Pt just returned from CT, pt called for assistance to urinate. SBA at bedside, pt used urinal, pt back in bed now resting safely w/ call light in reach.
--- NOTE | 2021-01-02 08:39 | NUR ---
Pt sitting up on side of bed eating breakfast. Morning assesment completed and scheduled meds given per provider order, VSS on RA. Pt c/o of soreness on back of head but denies the need for PRN pain meds. Pt denies any other needs at this time.
--- NOTE | 2021-01-02 11:22 | NUR ---
Pt called for SBA to use the urinal at the bedside. Pt voided and now laying in bed resting safely w/ call light in reach. Pt c/o 5/10 pain on back of head. non-adhesive allyven and gauze stocking placed to cushion laceration. PRN tylenol given per pt request/provider order. pt denies any other needs at this time.
--- NOTE | 2021-01-02 13:45 | NUR ---
Pt is sitting up on side of bed w/ call light in reach. Eye drops administered into the L eye as scheduled per provider order. Pt denies any other needs at this time.
--- NOTE | 2021-01-02 14:15 | NUR ---
PT WALKED IN ANDERSON WITH RN, FROM ROOM TO SECOND NURSES STATION, TOLERATED WELL. PT NOW SITTING ON EDGE OF BED, DENIES OTHER NEEDS AT THIS TIME.
--- NOTE | 2021-01-02 19:25 | NUR ---
ANSWERED CALL LIGHT. PATIENT IS ON BEDSIDE COMMODE. THIS WEAPONS SYSTEM INSTRUMENT MECHANIC WIPED PATIENT FROM HAVING SMALL FORMED BOWEL MOVEMENT. PRIMARY RN OPAL CHANGED PATIENT'S ALLEVYN ON COCCYX AREA. PATIENT IS BACK IN BED. WARM BLANKET PROVIDED. RT NELSY WAS WITH PATIENT DOING NEB TREATMENT.
--- NOTE | 2021-01-02 19:47 | NUR ---
UP TO BSC EARLIER, HAD SMALL BM, ALLEVYN DRESSING TO COCCYX CHANGED. NO C/O PAIN. BACK TO BED, TOLERATED WELL, CALL LIGHT AT HANDS REACH
--- NOTE | 2021-01-02 20:13 | NUR ---
L EYE WITH CREAM COLORED SOFT DRAINAGE, RED SCLERA, CLEANSED WITH WARM WET WASHCLOTH. TOLERATED WELL. COOP WITH ASSESSMENT, ON ROOM AIR. DIM LUNGS AT BASES. RESTRICTED R A AND L LEG FROM PREVIOUS DVT HX. SL PATENT. C/O BACK OF HEAD PAIN. SCABBED OVER AREA BACK OF HEAD, NO NEW DRAINAGE, HEALING. DENIES VISION CHANGES. R ELBOW DRESSING COVERED WITH OWEN WRAP. COCCYX ALLEVYN DRESSING CHANGED. HEALING. HAD ABM EARLIER. COOPERATIVE, HELPS WITH REPOSITIONING. HOB ELEVATED TO 30o. CALL LIGHT AND FLUIDS AT BEDSIDE. BED AALRM ON FOR FALL SAFETY PRECAUTIONS AT HS NURSES DISCRETION
--- NOTE | 2021-01-02 21:00 | NUR ---
CALL LIGHT ANSWERED. ASSISTED PATIENT FROM BEDSIDE COMMODE BACK TO BED. ROOM LIGHTS AND TV OFF PER PATIENT. NO OTHER NEEDS AT THIS TIME.
--- NOTE | 2021-01-03 00:21 | NUR ---
RESTING, NO DISTRESS, BED ALARM ON
--- NOTE | 2021-01-03 01:00 | NUR ---
PATIENT CALLED TO USE THE URINAL. ASSISTED TO STAND UP USING WALKER. PATIENT IS BACK IN BED. PATIENT STATED A LITTLE HARD TO BREATHE BUT IT WILL GO AWAY. JUST NEED TO SIT UP. CALL LIGHT IN REACH.
--- NOTE | 2021-01-03 01:59 | NUR ---
ROUNDING. PATIENT IS NOW LAYING DOWN IN BED.
--- NOTE | 2021-01-03 05:41 | NUR ---
PATIENT USED THE CALL LIGHT NEED ASSISTANCE TO USE THE URINAL. PATIENT STATED HE'S STILL HAVE A SHORTNESS OF BREATH. PATIENT IS NOW BACK IN BED. PRIMARY RN NOTIFIED.
--- NOTE | 2021-01-03 05:53 | NUR ---
PT HAS SLEPT, ON ROOM AIR, SOB WITH EXERTION AT TIMES. LUNGS CLEAR DIM AT BASES. WAS MEDICATED WITH TYLENOL PER C/O BACK OF HEAD PAIN. SCABBED OVER WOUND HEALING, NO NEW DRAINAGE. DRESSING TO RIGHT ELBOW AND NEW ALLEVYN DRESSING TO BUTTOCKS AREA INTACT. SL PATENT. VOIDING QS SMALL AMOUNTS, 1PA WEARS ATTENDS USES URINAL. HAD SMALL BM EARLIER ON SHIFT. ALERT AND ORIENTED. COOPERATIVE
--- NOTE | 2021-01-03 07:13 | NUR ---
PATIENT CALLED. ASSISTED TO GET UP TO USE THE URINAL. PATIENT IS BACK IN BED. PATIENT C/O HARD BREATHING. RN OPAL AND RN TANYA WERE IN THE ROOM GIVING REPORTS. NO OTHER NEEDS AT THIS TIME. CALL LIGHT WITHIN REACH.
--- NOTE | 2021-01-03 07:41 | NUR ---
PT AWAKE AT BEDSIDE REPORT, RETURNS TO DOZING RESTING SUPINE. CALL LIGHT AND NEEDED ITEMS IN REACH.
--- NOTE | 2021-01-03 10:10 | NUR ---
RECEIVED [facility] DISCUSSED PATIENT IS HOPING TO GO HOME AT DISCHARGE. SHE STATES THEY WILL HOLD BED UNTIL THAT HAPPENS JUST IN CASE. ASKS WE LET HER KNOW WHEN HE WILL DISCHARGE.
--- NOTE | 2021-01-03 10:23 | NUR ---
PT HAS BEEN UP TO THE TOILET THEN BACK TO HIS BED 2X THIS SHIFT IS PRESENT IN THE ROOM CURRENTLY. PT C/O SOB EARLY IN THE SHIFT SATS 96 ON ROOM AIR. R/T GIVES SCHEDULED MED PT REPORTS RELIEF. DENIES PAIN OR DISCOMFORTS OTHERWISE
--- NOTE | 2021-01-03 10:56 | NUR ---
PATIENT IN BED RESTING AFTER PT. IN ROOM. VITALS AND I&O'S CHARTED. CALL LIGHT IN REACH. NO FURTHER NEEDS AT THIS TIME.
--- NOTE | 2021-01-03 11:57 | NUR ---
PATIENT SITTING ON EDGE OF BED EATING 1/2 TUNA FISH SANDWICH FOR LUNCH ALONG WITH A SMALL MILK AND SUGAR-FREE VANILLA PUDDING. HIS , KERWIN, IS VISITING. SHE IS HOPING SHE CAN TAKE HIM HOME TOMORROW. PATIENT STATES HE IS EATING PRETTY WELL, THOUGH STILL EATING SMALL MEALS. NO CHEWING OR SWALLOWING PROBLEMS. HE HAS LOST SOME WEIGHT OVER THE PAST 4 MONTHS FROM BEING IN THE HOSPITAL AND WBT FOR REHAB. HE WOULD LIKE TO GAIN SOME WEIGHT BACK. I SUGGESTED HE WORK IN A COUPLE OF SNACKS WHEN HE GETS HOME SUCH PEANUT BUTTER AND CRACKERS OR ON BREAD, MILKSHAKE OR SMOOTHIE WITH A BANANA AND PEANUT BUTTER, OR COTTAGE CHEESE. NORMAL THOUGHT THESE WERE GOOD IDEAS AND SAID SHE COULD RESEARCH PROGRAM INTERNSHIP A SMALL CONTAINER OF COTTAGE CHEESE WHEN SHE GOES TO THE STORE. PATIENT DOES LIKE PEANUT BUTTER. NO OTHER QUESTIONS OR CONCERNS FROM THEM AT THIS TIME. ENCOURAGED PATIENT TO FINISH HIS LUNCH. CONTINUE 60 GRAM CONSISTENT CARB DIET.
--- NOTE | 2021-01-03 14:28 | NUR ---
PT ALERT, ORIENTED AND LAYING AKWARDLY IN BED. PT REQUESTED HELP TO SIT UPRIGHT IN BED. DADA MARTÍNEZ AND OPLINA IN TO ASSIST PT. HAD GOOD VISIT, KERWIN LEFT TO RUN ERRANDS. PT MENTIONED THAT HE HOPES HE LIVES TO [place]IVERS[place]. PT REQUESTED PRAYER, GAVE ENCOURAGEMENT, PT THANKED ME FOR VISIT. WILL FOLLOW
--- NOTE | 2021-01-03 14:35 | NUR ---
PATIENT IN BED WATCHING TV. VITALS AND I&O'S CHARTED. CALL LIGHT IN REACH. NO FURTHER NEEDS AT THIS TIME.
--- NOTE | 2021-01-03 15:23 | NUR ---
PT RESTING IN BED DOZING OFF AND ON DENIES DISCOMFORTS OR NEEDS. NO FURTHER C/O SOB. SATS REMAIN IN THE MID 'S
--- NOTE | 2021-01-03 18:12 | NUR ---
PT EATS MOST OF EVENING MEAL SITTING UP ON THE EDGE OF THE BED PRESENT.
--- NOTE | 2021-01-03 19:10 | NUR ---
RECEIVED REPORT FROM MERCEDES MARTÍNEZ RN. PT IN BED, WITH TV ON. NO NEEDS AT THIS TIME.
--- NOTE | 2021-01-03 19:30 | NUR ---
Answered pt call light, assissted pt to stand at bedside with 1pa and fww. pt used urinal, skant amount of cloudy/ ordiferous, yellow urine. 25cc. pt reports that he feels like there is more urine that won't come out. rn notified.
--- NOTE | 2021-01-03 20:17 | NUR ---
PTS BED ALARM SOUNDING, THIS STAFF ASSISTIED PT TO STAND AT BEDSIDE TO URINATE. NO URINE MADE. PT INSTUCTED TO CALL WHEN HE WANTS TO TRY AGAIN. BED ALARM ON, CALL LIGHT IN REACH. NO FURTHER ASSITANCE NEEDED AT THIS TIME.
--- NOTE | 2021-01-03 22:17 | NUR ---
BED ALARM SOUNDING. PT UP WITH MUD LOGGER TO USE URINAL. SBA. ONCE BACK TO BED, RESPOSITIONED, BED ALARM PLACED.
--- NOTE | 2021-01-03 22:40 | NUR ---
PT STATED EARLIER IN SHIFT THAT IT FEELS LIKE HE NEEDS TO HAVE A BM, DID HAVE 2 SMALL BM'S CHARTED ON THE I/O SHEET, PT STATED HE MIGHT HAVE HAD A BM "YESTERDAY", PT TAKES BOWEL MEDICATIONS AT HOME, ABD SL DISTENDED, MEDICATION ORDERED.
--- NOTE | 2021-01-04 00:39 | NUR ---
CHECKED ON PT, RESP EVEN UNLABORED, LAYING ON HIS RIGHT SIDE, EYES CLOSED.
--- NOTE | 2021-01-04 03:06 | NUR ---
CHECKED ON PT. HOB ELEVATED, LAYING SEMI ON RIGHT SIDE, RESP EVEN AND UNLABORED, EYES CLOSED.
--- NOTE | 2021-01-04 03:33 | NUR ---
PT CALLED, WITH MOD ASSIST PT STOOD AND USED URINAL. DEPENDENT ON GETTING LEGS INTO BED . HOB ELEVATED PER PT REQUEST. OFFERED AND ACCEPTED DRINK WATER. BED ALARM PLACED, CALL LIGHT WITHIN REACH.
--- NOTE | 2021-01-04 04:48 | NUR ---
Answered pt call light, assisted pt to bsc, 1pa/FWW. changed brief, provided pericare. pt back in bed, call light in reach, bed alarm on, vital signs done. no futher assistance needed at this time.
--- NOTE | 2021-01-04 04:54 | NUR ---
ASSESSMENT COMPLETED, UNCHANGED FROM PREVIOUS. ABD SL SOFTER, BUT FEELS HE NEEDS TO GO "MORE". HAD A MED SOFT BM WITH FORMED STOOL, DID STRAIN TO HAVE IT. PT AWARE OF STOOL MEDICATION TO BE GIVEN WITH AM MEDICATIONS. VS COMPLETE. NO OTHER NEEDS AT THIS TIME.
--- NOTE | 2021-01-04 06:26 | NUR ---
BRUISING AND SCAB TO BACK HEAD, AND RIGHT ELBOW CONTINUE WITHOUT S/S INFECTION, SL DISCOMFORT IS REPORTED BY PT. RA, SATS IN THE MID 90'2 WITH SOB NOTED ON EXERTION, AND VOICED BY PT, HOWEVER, SATS REMAIN IN THE 90'S. ONE PERSON ASSIST, FWW TO AMBULATE, WELL TO USE THE URINAL AT BEDSIDE. PT ALERT, GENERALLY USES CALL LIGHT, HOWEVER, CAN BE IMPULSIVE. RECEIVED NO PRN'S THROUGHOUT THIS SHIFT. COUPLE BM'S, PT COMPLAINS OF FEELING URGE TO HAVE MORE BM'S, TAKES STOOL SOFTNERS AT HOME, ORDERED S[place]OT TO START THIS AM.
--- NOTE | 2021-01-04 07:14 | NUR ---
ANSWERED PT CALL LIGHT, ASSISTED PT TO BSC, 1PA/FWW. SMALL BM, SOFT, BROWN. SMALL URINE (25CC). PERICARE DONE, BED ALARM ON, CALL LIGHT WITHIN REACH. NO FURTHER ASSITSTANCE NEEDED AT THIS TIME.
--- NOTE | 2021-01-04 07:20 | NUR ---
Report received from Kizzy GARLAND. Pt resting in bed with eyes closed, even and unlabored respirations noted. Will continue plan of care.
--- NOTE | 2021-01-04 08:16 | NUR ---
PT AWAKE IN ROOM, PT STOOD FOR URINAL USE AND IS NOW UP IN THE CHAIR EATING BREAKFAST. CALL LIGHT WITHIN REACH. NO FURTHER NEEDS AT THIS TIME.
--- NOTE | 2021-01-04 09:05 | NUR ---
Scheduled medications administered, assessment complete. Pt resting in chair with at bedside. States feeling generally well. VSS, A+O. Fresh water provided, PT enters room to work with patient.
--- NOTE | 2021-01-04 09:21 | NUR ---
INTO PATIENT ROOM, PATIENT SITTING UP IN CHAIR. KERWIN SITTING AT THE BEDSIDE. ASKED PATIENT IF SHE HAS M[facility] WITH [facility], PATIENT STATES " I HAVEN'T HAD A CHANCE TO DO THAT YET." I ADVISED THE PATIENT AND HIS THAT THERE IS STILL CONCERNS WITH THE PATIENT DISCHARGE PLAN THERAPIES STILL FEEL THAT THE PATIENT MAY NOT BE ABLE TO CARE FOR HIM. DISCUSSED OPTIONS OF HIRING CAREGIVER OR REQUESTING HOSPICE SERVICES. PATIENTS STATES "I HAVEN'T GIVEN IT ANY THOUGHT." ADVISED PATIENT AND TO CONSIDER CAREGIVING OPTIONS FOR DISCHARGE AND THIS RN WILL BE BACK TO SPEAK WITH THE PATIENT AFTER DISCUSSION UPDATE WITH MD. DISCUSSED WITH DR. GALLEGO THE PATIENT AND LACK DISCHARGE PLANNING. DR. GALLEGO STATES SHE IS READY TO DISCHARGE THE PATIENT AT THIS TIME. THIS RN TO DISCUSS WITH CASE MANAGEMENT TEAM REGARDING FURTHER DISCHARGE PLANNING.
--- NOTE | 2021-01-04 10:15 | NUR ---
CORI RN, TERRI RN AND THIS RN INTO ROOM TO DISCUSS ONGOING DISCHARGE PLAN. PATIENT SITTING UP IN THE CHAIR AND AT BEDSIDE. DISCUSSED OPTIONS FOR IN HOME CARE, HOME HEALTH REFERRAL, [facility] PROGRAM AND [facility] HOME CARE PROGRAM. ADVISED PATIENT AND THAT [facility] HAS BEEN SENT AT THIS TIME. PATIENT AND CONFIRM THAT PATIENT IS ABLE TO SHOWER SELF AT THIS TIME. PATIENT STATES SHE HAS BOUGHT HAND RAILS FOR OUTSIDE THE HOME AT THIS TIME AND IS WAITING FOR A NEIGHBOR TO INSTALL THEM. PATIENT CONFIRMS SHE HAS 2 WALKERS, A TOLIET RISER AND HAND RAILS INSTALLED IN THE SHOWER AT THE HOME. PATIENT IS AWARE THAT SHE IS TO REMOVE ALL RUG BEFORE PATIENT DISCHARGES HOME. PATIENT AND PATIENT ASKED SEVERAL TIMES IF THEY FEEL SAFE DISCHARGING HOME, BOTH AGREE THAT THEY FEEL SAFE AT HOME. INFORMATION GIVEN FOR HOME HEALTH, HOSPICE SERVICES, CHW PROGRAM, AND CONTACT INFORMATION FOR CASE MANAGEMENT IN PREP FOR DISCHARGE. DR. GALLEGO UPDATED OF CASE MANAGEMENT CARE [place].
--- NOTE | 2021-01-04 10:17 | NUR ---
CALL PLACED TO THE [facility] TO DETERMINE PATIENTS BENIFITS AND PAST REFERRALS. PER VA STAFF NO PREVIOUS REFERRALS FOR SERVICES HAVE BEEN MADE AT THIS TIME. COMPLETED GEC FORM, H&P, PROGRESS NOTES, PT/OT EVAL/NOTES AND ADVANCED DIRECTIVE FAXED TO THE [facility].
--- NOTE | 2021-01-04 10:22 | NUR ---
PT AWAKE IN ROOM SITTING IN CHAIR VISITING WITH IN THE ROOM. CALL LIGHT WITHIN REACH. WARM BLANKET GIVEN. NO FURTHER NEEDS AT THIS TIME.
[2021-01-04] MEDS ORDERED: NITROSTAT0.3 MG SL (11:27)
[2021-01-04] MEDS ORDERED: ATORVASTATIN CA40 MG PO (11:27)
[2021-01-04] MEDS ORDERED: TOPROL XL25 MG PO (11:27)
[2021-01-04] MEDS ORDERED: DIGOXIN125 MCG PO (11:27)
[2021-01-04] MEDS ORDERED: KLOR-CON 1010 MEQ PO (11:28)
[2021-01-04] MEDS ORDERED: ALLOPURINOL100 MG PO (11:30)
--- NOTE | 2021-01-04 13:14 | NUR ---
SPOKE WITH KERWIN IN [place]. UPDATED THAT FIRST AVAILABLE HOME HEALTH WOULD BE [facility] AND THEY CAN ADMIT SUNDAY OR SUNDAY. SHE IS AGREEABLE WITH THIS. SHE WILL BE EXPECTING A CALL FROM THEM TO SET UP VISIT.
--- NOTE | 2021-01-04 13:25 | NUR ---
FAXED HOME HEALTH ORDER/CLINICALS TO [facility] [phone]. FAX CONFIRMATION RECEIVED. CALLED THEM AND SPOKE WITH MARQUISE WHO WILL GIVE PACKET TO
--- NOTE | 2021-01-04 14:14 | NUR ---
PT SITTING IN CHAIR, KERWIN AT BS. PT HAD JUST FINISHED P.T. AND WAS FEELING GOOD ABOUT HIS SESSION.PT WAS TIRED, GAVE ENCOURAGEMENT AND ALSO REMINDED HIS ABOUT HIS GOAL TO BE WITH KERWIN FOR THEIR 60TH ANNIVERSARY IN MARCH. BLESSING EXTENDED, WILL FOLLOW NEEDED
== END 2021-01-04 13:05 | disposition home or self-care (01) | DRG 86 ==
LOC: ED 02:34 → MS 07:59
PROVIDERS: ADMIT Internal Medicine; ATTEND Internal Medicine
DX: S06.6X0A Traumatic subarachnoid hemorrhage without loss of consciousness, initial encounter (principal); I13.0 Hypertensive heart and chronic kidney disease with heart failure and stage 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, or unspecified chronic kidney disease; Z66 Do not resuscitate; Z20.822 Contact with and (suspected) exposure to COVID-19; M10.9 Gout, unspecified; I25.10 Atherosclerotic heart disease of native coronary artery without angina pectoris; I27.20 Pulmonary hypertension, unspecified; I50.9 Heart failure, unspecified; I48.0 Paroxysmal atrial fibrillation; D63.1 Anemia in chronic kidney disease; E11.40 Type 2 diabetes mellitus with diabetic neuropathy, unspecified; K21.9 Gastro-esophageal reflux disease without esophagitis; E11.22 Type 2 diabetes mellitus with diabetic chronic kidney disease; N18.9 Chronic kidney disease, unspecified; J44.9 Chronic obstructive pulmonary disease, unspecified; Z86.718 Personal history of other venous thrombosis and embolism; Z90.89 Acquired absence of other organs; Z95.5 Presence of coronary angioplasty implant and graft; Z98.890 Other specified postprocedural states; Z88.1 Allergy status to other antibiotic agents; Z88.8 Allergy status to other drugs, medicaments and biological substances; Z79.01 Long term (current) use of anticoagulants; Z79.899 Other long term (current) drug therapy; W01.198A Fall on same level from slipping, tripping and stumbling with subsequent striking against other object, initial encounter; Y92.129 Unspecified place in nursing home as the place of occurrence of the external cause
CPT/HCPCS: 70450; 80048; 80053; 83735; 85025; 85610; 94640; 96365; 96366; 96375; 97110; 97116; 97162; 97165; 97530; 99285-25; J3430; U0003

== ENCOUNTER 2021-02-23 17:33 | Inpatient (IN) | payer MEDICARE, OTHER ==
[~2021-02-23] VITALS: Ht 170.2 cm; Wt 53.9 kg
[~2021-02-23 17:33] MED LIST changes: +ALBUTEROL2.5 MG/3 M INH; +ARTHRITIS PAIN650 M2 PO; +BUDESONIDE0.25 MG/2 INH; +COLACE100 MG PO; +DIGOXIN125 MCG PO; +FISH OIL 1,0001 EAC2 PO; +KLOR-CON 88 MEQ PO; +LOVENOX60 MG SUB-Q; +MAXITROL EYE DRO5 ML OS; +PROVENTIL HFA6.7 GM INH; +SANTYL30 GM TOP; +SYMBICORT 16010.2 GM INH; +TOPROL XL25 MG PO; +ZOFRAN4 MG PO
--- OUTSIDE RECORDS SUMMARY | 2021-02-23 17:36 | XMS ---
Abad Notification: ONEIDA YANEZ Security Heel Trimmer Events No recent Security Events currently on file CRITERIA MET - 6 ED Visits in 6 Months - PDMP CARE PROVIDERS SUSANA COSME Electrical Controls Designer Current SHIMON Tai PHONE: [phone] LAURIE SARMIENTO Internal Medicine Current PHONE: [phone] JOMAR HERNDON Nurse Practitioner Current PHONE: [phone] DANNI GO [facility] 09/01/2020-Current PHONE: [phone] GISELL JORDAN Nurse Practitioner: Family Current PHONE: Unknown BANG CROUCH Electrical Controls Designer Current EVENS MIRAMONTES PHONE: [phone] STEFFANY Nurse Practitioner Current ARRON DOMINGUEZ PHONE: [phone] LETICIA ARENAS Family Medicine Current PHONE: [phone] MAXIMILIANO MEIER Family Medicine 09/17/2020-Current PHONE: [phone] Phan has no Care Guidelines for this patient. Care History Medical/Surgical 01/05/2021 [facility] - [facility]W CALLED HOME HEALTH SERVICES-PATIENT IS SET UP FOR TODAY 01/05/21 FOR ADMIT TO HOME HEALTH SERVICES. RN AND OT WILL BE MEETING WITH PATIENT TODAY. - PATIENT PICKED UP MEDICATIONS FROM DISCHARGE AND HAS MEDS FILLED - PATIENT KERWIN STATED THAT PATIENT IS DOING BETTER AT HOME AND IS AMBULATING TO AND FROM THE BATHROOM WITH THE WALKER AND HE SLEPT GOOD AT NIGHT SHE IS HAPPY WITH HIS PROGRESS. - CHW RECOMMENDED A HOME VISIT TO SEE IF LOCAL RESOURCES COULD BE OF ASSISTANCE. KERWIN STATED SHE IS DEFINITELY INTERESTED AND WOULD LIKE A CALL BACK NEXT WEEK TO SET UP A HOME VISIT. E.D. VISIT COUNT (12 MO.) 7 [facility] TOTAL 7 NOTE: Visits indicate total known visits. ED/C VISIT TRACKING (12 MO.) 02/23/2021 17:33 [facility]: Emergency COMPLAINT: - WEAKNESS 12/31/2020 02:34 [facility] [...] unspecified - Atherosclerotic heart disease of [place] coronary artery without angina pectoris - Non-pressure chronic ulcer of other part of left foot with unspecified severity - Allergy status to other drugs, medicaments and biological substances - Personal history of nicotine dependence - [facility] (current) use of anticoagulants - Allergy status to analgesic agent - intermodal dispatcher (current) use of systemic steroids - Allergy status to other antibiotic agents - Unspecified atrial fibrillation - Other usp (current) drug therapy 08/31/2020 12:17 [facility] TYPE: Emergency COMPLAINT: - COPD INPATIENT VISIT TRACKING (12 MO.) 12/31/2020 07:[address] [facility] [place] TYPE: Medical Surgical COMPLAINT: - HEMORRHAGIC STROKE DIAGNOSES: - Atherosclerotic heart disease of [place] coronary artery without angina pectoris - Gout, unspecified - Traumatic subarachnoid hemorrhage without loss of consciousness, initial encounter - Pulmonary hypertension, unspecified - Atherosclerotic heart disease of [place] coronary artery without angina pectoris - Chronic kidney disease, unspecified - Personal history of other venous thrombosis and embolism - Chronic obstructive pulmonary disease, unspecified - Traumatic subdural hemorrhage without loss of consciousness, initial encounter - Acquired absence of other organs - [facility] (current) use of anticoagulants - Fall on same level from slipping, tripping and stumbling with subsequent striking against other object, initial encounter - Allergy status to other drugs, medicaments and biological substances - Fall on same level from slipping, tripping and stumbling with subsequent striking against other object, initial encounter - Do not resuscitate - Personal history of other venous thrombosis and embolism - Do not resuscitate - Other usp (current) drug therapy - Hypertensive heart and chronic kidney disease with heart failure and stage 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, or unspecified chronic kidney disease - Anemia in chronic kidney disease - Other usp (current) drug therapy - Chronic kidney disease, unspecified - Other specified postprocedural states - Traumatic subarachnoid hemorrhage without loss of consciousness, initial encounter - Type 2 diabetes mellitus with diabetic neuropathy, unspecified - Allergy status to other antibiotic agents - Gout, unspecified - Type 2 diabetes mellitus with diabetic chronic kidney disease - Heart failure, unspecified - Type 2 diabetes mellitus with diabetic neuropathy, unspecified - Allergy status to other antibiotic agents - Unspecified place in intermediate as the place of occurrence of the external cause - Other specified postprocedural states - [facility] (current) use of anticoagulants - Hypertensive heart and chronic kidney disease with heart failure and stage 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, or unspecified chronic kidney disease - Anemia in chronic kidney disease - Paroxysmal atrial fibrillation - Heart failure, unspecified - Chronic obstructive pulmonary disease, unspecified - Acquired absence of other organs - Paroxysmal atrial fibrillation - Unspecified place in intermediate as the place of occurrence of the external cause - Gastro-esophageal reflux disease without esophagitis - Presence of coronary angioplasty implant and graft - Type 2 diabetes mellitus with diabetic chronic kidney disease - Pulmonary hypertension, unspecified - Presence of coronary angioplasty implant and graft - Allergy status to other drugs, medicaments and biological substances - Gastro-esophageal reflux disease without esophagitis 11/17/2020 09:05 [facility] TYPE: Medical Surgical COMPLAINT: - GI BLEED DIAGNOSES: - Paroxysmal atrial fibrillation - Pulmonary hypertension, unspecified - Diaphragmatic hernia without obstruction or gangrene - [facility] (current) use of inhaled steroids - Type 2 diabetes mellitus with diabetic chronic kidney disease - intermodal dispatcher (current) use of insulin - Gout, unspecified [...] disease, or unspecified chronic kidney disease - intermodal dispatcher (current) use of systemic steroids - Acute embolism and thrombosis of deep veins of right upper extremity - Gout, unspecified - [facility] (current) use of inhaled steroids - Acute embolism and thrombosis of deep veins of right upper extremity - Other usp (current) drug therapy - intermodal dispatcher (current) use of systemic steroids - Diaphragmatic hernia without obstruction or gangrene - Hemorrhagic disorder due to extrinsic circulating anticoagulants - Cachexia - Chronic pain syndrome - Chronic kidney disease, stage 3 unspecified - Chronic systolic (congestive) heart failure - Adverse effect of anticoagulants, initial encounter - Other usp (current) drug therapy - Atherosclerotic heart disease of [place] coronary artery without angina pectoris - Diverticulosis [...] disease - Atherosclerotic heart disease of [place] coronary artery without angina pectoris - Allergy [...] disease, or unspecified chronic kidney disease - [facility] (current) use of insulin - Allergy status [...] limb - Atherosclerotic heart disease of [place] coronary artery without angina pectoris - [facility] (current) use of oral hypoglycemic drugs - [...] - Personal history of nicotine dependence - [facility] (current) use of systemic steroids - Allergy status to other antibiotic agents - Weakness - Gout, unspecified - Pulmonary hypertension, unspecified - Other disorders of bilirubin metabolism - Paroxysmal atrial fibrillation - [facility] (current) use of anticoagulants - Type 2 diabetes mellitus with other skin complications - Chronic obstructive pulmonary disease, unspecified 10/09/2020 10:05 [facility] TYPE: Medical Surgical COMPLAINT: - TC DIABETIC WOUND DIAGNOSES: - Acute on chronic systolic (congestive) heart failure - [facility] (current) use of systemic steroids - Pulmonary hypertension, unspecified - intermodal dispatcher (current) use of inhaled steroids - Type 2 diabetes mellitus with foot ulcer - intermodal dispatcher (current) use of anticoagulants - [facility] (current) use of oral hypoglycemic drugs - Allergy status to other antibiotic agents - [facility] (current) use of oral hypoglycemic drugs - Allergy status to other antibiotic agents - Other exterminator helper (current) drug therapy - Paroxysmal atrial fibrillation - Acute kidney failure, unspecified - [facility] (current) use of anticoagulants - Non-pressure chronic ulcer of left heel and midfoot with fat layer exposed - Non-pressure chronic ulcer of left heel and midfoot with fat layer exposed - Atherosclerotic heart disease of [place] coronary artery without angina pectoris - Acute [...] disease - Atherosclerotic heart disease of [place] coronary artery without angina pectoris - Chronic obstructive pulmonary disease, unspecified - Allergy status to other drugs, medicaments and biological substances - CHCF (current) use of systemic steroids - Allergy status to other drugs, medicaments and biological substances - Acute embolism and thrombosis of deep veins of right upper extremity - Acute on chronic systolic (congestive) heart failure - Gout, unspecified - Chronic kidney disease, unspecified - Other usp (current) drug therapy - Chronic kidney disease, unspecified - [facility] (current) use of inhaled steroids 10/04/2020 14:07 [facility] TYPE: Medical Surgical COMPLAINT: - DIABETIC WOUND DIAGNOSES: - Paroxysmal atrial fibrillation - [facility] (current) use of systemic steroids - Cellulitis of left lower limb - Acute pyelonephritis - Type 2 diabetes mellitus with diabetic peripheral angiopathy without gangrene - Cellulitis of right lower limb - Adverse effect of cephalosporins and other beta-lactam antibiotics, initial encounter - Other exterminator helper (current) drug therapy - Allergy status to other antibiotic agents - Chronic obstructive pulmonary disease, unspecified - Personal history of nicotine dependence - Chronic kidney disease, unspecified - Atherosclerotic heart disease of [place] coronary artery without angina pectoris - Acute kidney failure, unspecified - Type 2 diabetes mellitus with diabetic chronic kidney disease - Allergy status to other drugs, medicaments and biological substances - Unspecified open wound, left foot, initial encounter 09/16/2020 03:17 [facility] TYPE: Medical Surgical COMPLAINT: - GOUTY ARTHRITIS [...] unspecified 13. Atherosclerotic heart disease of [place] coronary artery without angina pectoris 14. Tachycardia, [...] - Acute respiratory failure with hypoxia - [facility] (current) use of inhaled steroids - Atherosclerotic heart disease of [place] coronary artery without angina pectoris - Type 2 diabetes mellitus with hypoglycemia without coma - Acute kidney failure, unspecified - Myocardial infarction type 2 - Chronic obstructive pulmonary disease with (acute) exacerbation - intermodal dispatcher (current) use of anticoagulants - Cardiomyopathy, unspecified - Other exterminator helper (current) drug therapy - Unspecified place in hospital as the place of occurrence of the external cause - [facility] (current) use of antithrombotics/antiplatelets - Adverse effect of insulin and oral hypoglycemic [antidiabetic] drugs, initial encounter [email or web address]
--- NOTE | 2021-02-23 22:32 | NUR ---
Report received from ANNUAL GREENHOUSE MANAGERDADA Borjas, pt rios, sports equipment supervisor will bring pt down via stretcher on tele.
--- NOTE | 2021-02-23 23:43 | NUR ---
pt ARRIVES TO MS FLOOR VIA STRETCHER, WEAK, UNABLE TO STAND ON SCALE FOR DAILY WEIGHT. TRANSFERRED TO HOSPITAL BED WITH 3 RN ASSIST. IN ROOM. MARTINEZ DRAINING CLOUDY URINE. TELE [address] AF[address] RHYTHM[address] ORIENTATION TO ROOM PROVIDED. IVF INFUSING WNL. ENSURE PROVIDED, pt ASSISTED TO SIT UP TO DRINK ENSURE. pt NOW LYING DOWN, LIGHTS OFF IN ROOM. CALL LIGHT IN REACH.
--- NOTE | 2021-02-24 02:00 | NUR ---
PT REPOSISTIONED ONTO R SIDE, RESTING SAFELY IN BED W/ CALL LIGHT IN REACH. PT DENIES ANY NEEDS AT THIS TIME.
--- NOTE | 2021-02-24 04:00 | NUR ---
Pt restign safely in bed w/ call light in reach and eyes closed, RR even and unlabored.
--- NOTE | 2021-02-24 05:40 | NUR ---
Pt admitted from ER at midnight, VSS on RA upon arrival. Pt's O2 sats decreased when sleeping, placed on 2L via NC O2 sats 92-97%. VS remain stable otherwise. Pt rested throughout the shift, hill w/ suficient output and IV fluids infusing per provider orders.
--- NOTE | 2021-02-24 05:47 | NUR ---
PHONE CALL FROM [facility] AT 0530, NOTIFIED THAT HR ON TELE 5 IN THE 150S. pt TREMULOUS IN ROOM. STATES "I FEEL LIKE I CAN'T BREATHE AND AM REALLY ANXIOUS." DIFFICULTY OBTAINING SPO2 READING, EXTREMITIES COLD. WARM BLANKET AROUND HANDS, SPO2 CONTINUES TO READ 78%. 2L OXYGEN BY NC APPLIED, EAR PROBE PLACED, SPO2 IN 90S WITH 2L OXYGEN BY NC, 95%. PRIMARY RN NOTIFIED AND IN ROOM TO ASSESS pt. AFEBRILE. VS STABLE. HR NOW 104-112 ON TELE 5.
--- NOTE | 2021-02-24 08:00 | NUR ---
REPORT RECEIVED. PT AWAKE IN ROOM. ASSISTED GROCERY CARRIER TO GET PT OOB TO CHAIR FOR BREAKFAST. PT DENEIS PAIN. CALL LIGHT AND PERSONAL ITEMS WITHIN REACH.
[2021-02-24] MEDS ORDERED: ALLOPURINOL100 MG PO (08:05)
[2021-02-24] MEDS ORDERED: BROVANA15 MCG/2 M INH (08:06)
[2021-02-24] MEDS ORDERED: BUDESONIDE0.5 MG/2 M INH (08:07)
--- NOTE | 2021-02-24 09:00 | NUR ---
Spoke with pt and his Harriett. He asks Harriett answer questions. Family is familiar to me. They cont. to live in a 1 story home with stepNicol P resides at home and assists him. He is able to shower alone and requires minimal assist to dress. Pt stays in the home and is able to go the the grocery store. They have neighbors who desire l assist if needed. Pt and have requested pt no longer be trans- ferred out of town for any care. Would prefer all care completed at [facility]. They do not care if they cannot receive a higher level if care. Pt and also agree they do not want Nestor to retur n to a SNF in the future. They will accept Home Health if needed. Pt is weak following UTI which started on Sunday. They deny needs for further DME. Plan to return to home when medically cleared. Neighbor will assist if needed.
--- NOTE | 2021-02-24 10:46 | NUR ---
ASSESSMENT COMPLETED. TELEMETRY DC'D PER DR TIM. PHYSICAL THERAPY IN WORKING WITH PT NOW. IS AT BEDSIDE. MEDICATIONS ADMSITNERED AND VITALS COMPLETED.
--- NOTE | 2021-02-24 11:31 | NUR ---
MED REC COMPLETE
--- NOTE | 2021-02-24 13:22 | NUR ---
ROUNDED VON PT. PT UP IN [facility] FOR LUNCH. DENIES PAIN. AT BEDSIDE. CALL LIGHT IN REACH.
--- NOTE | 2021-02-24 16:00 | NUR ---
ROUNDED ON PT. OUT OF SHOWER NOW AND IN BED. ABD RESTARTED. AT BEDSIDE. DENEIS PAIN OR SOB. CALL LIGHT IN REACH.
--- NOTE | 2021-02-24 16:28 | NUR ---
PATIENT HELPED WITH THE SHOWER, BUT THIS COCOA MILLING MACHINE OPERATOR MOSTLY DID THE JOB. SCRUBBED HIM DOWN AND GOT HIM DRESSED. PATIENT IS NOW BACK IN THE BED RESTING. CALL LIGHT IN REACH. NO FURTHER NEEDS AT THIS TIME.
--- NOTE | 2021-02-24 19:05 | NUR ---
SHIFT REPORT RECEIVED FROM DAYSHIFT DADA MIKE AT BEDSIDE. pt RESTING QUIETLY IN BED, EYES CLOSED AND RR EVEN AND UNLABORED. NO DISTRESS NOTED. IV ABX INFUSING, SITE WNL. MITTENS IN PLACE TO HANDS. NO NEEDS VERBALIZED AT THIS TIME, CALL LIGHT IN REACH.
--- NOTE | 2021-02-24 19:22 | NUR ---
PT WITH DECREASE IN OUTPUT. DR MCINTYRE NOTIFIED. NO NEW ORDERS BUT TO CONTINUE TO MONITOR.
--- NOTE | 2021-02-24 20:45 | NUR ---
assessment and scheduled meds given (see emar). PT a/o, calls appropriately. iv site wnl, flushes easily. vss, pt on ra, no distress or reports of pain. kiln chargershalini lopez in room to give scheduled nebs for rt. call light in reach.
--- NOTE | 2021-02-24 22:30 | NUR ---
scheduled iv abx infusing, site wnl. pt denies additional needs. call light in reach.
--- NOTE | 2021-02-25 03:03 | NUR ---
IN ROOM TO ASSESS URINE OUTPUT, <50MLS IN CATHETER BAG. pt INCONTINENT OF URINE. THIS RN DEINFLATED BALOON AND READJUSTED MARTINEZ TUBING AND REINFLATED BALOON. NO ADDITIONAL LEAKING NOTED AT THIS TIME. NANCIE CARE DONE, REDDNESS NOTED TO RIGHT GROIN FOLDS, BARRIER CREAM APPLIED. pt BOOSTED IN BED AND REPOSITIONED WITH HELP FROM DADA PICKARD. PILLOW PLACED UNDER RIGHT HIP. NO FURTHER NEEDS, IV SITE WNL AND SALINE LOCKED.
--- NOTE | 2021-02-25 06:21 | NUR ---
IN ROOM TO GIVE SCHEDULED IV ABX, SITE WNL. pt AGAIN INCONTINENT OR URINE, DATA COMMUNICATIONS SOFTWARE CONSULTANT ALSO IN ROOM. MARTINEZ FLUSHED WITH 5MLS STERILE SALINE BY DATA COMMUNICATIONS SOFTWARE CONSULTANT. MARTINEZ AGAIN MANIPULATED. CATHETER PAENT AND DRAINING, WILL MONITOR FOR CONTINUED LEAKING. HOB ELEVATED, NO FURTHER NEEDS. CALL LIGHT IN REACH.
--- NOTE | 2021-02-25 07:30 | NUR ---
in room to assess catheter, very scant urine noted on attends. catheter patent and draining, yellow with sediment urine. dayshift rn aware of previous leaking to catheter.
--- NOTE | 2021-02-25 07:30 | NUR ---
PT WAS IN BED. PT REFUSED SITTING IN RECLINER. THIS MID LEVEL BUSINESS ANALYST GAVE PT A WARM WASHCLOTH FOR THEIR FACE. NO FURTHER NEEDS AT THIS TIME. WHITEBOARD WAS UPDATED, CALL LIGHT IS WITHIN REACH.
--- NOTE | 2021-02-25 07:56 | NUR ---
REPORT RECIEVED. PT IN BED AWAKE. DENIES NEEDS. CALL LIGHT IN REACH.
--- NOTE | 2021-02-25 08:46 | NUR ---
THIS ORDER DETAILER CHANGED PT'S BRIEF AND ROTATED PT FROM THIER RIGHT SIDE TO THEIR LEFT. PT REPORTED SOME PAIN UNDER THIER RIBS. THIS ORDER DETAILER REPORTED THIS TO DADA MIKE. CALL LIGHT IS WITHIN REACH. NO FURTHER NEEDS AT THIS TIME.
--- NOTE | 2021-02-25 09:20 | NUR ---
PATIENT SLEEPING. STAFF NURSE ASKS HE NOT BE AWAKENED. NO CHANGES ON DISCHARGE PLAN.
--- NOTE | 2021-02-25 09:30 | NUR ---
ASSESSMENT COMPELTED. PT REFUSED TO GET OOB TO CHAIR FOR BREAKFAST. REPORTS HE DIDN'T SLEEP LAST NIGHT BECAUSE THE SURSES WERE "PRODING" AT HIM D/T BENNETTELY LEAKING. PT REPORTS SOME PAIN FROM LAYING ON RIGHT SIDE. TYLENOL ADMISNTERED. AGREEED TO LET PT NAP UNTIL 1130. AT BEDSIDE. PT IS ON RA. ONLY HAD TWO BITES OF BREAKFAST AND DRANK HALF ENSURE. ABX STARTED. ARAVIND DC'D PER ORDER. PT TOLERATED WELL. CALL LIGHT AND PERSONAL ITEMS WITHIN REACH.
--- NOTE | 2021-02-25 11:21 | NUR ---
IN TO ADMISNTER MAGNESIUM. PT STILL SLEEPING IN BED. AT BEDSIDE. RESPIRATIONS EQUAL AND NONLABORED. CALL LIGHT IN REACH.
--- NOTE | 2021-02-25 11:41 | NUR ---
PT ASISTED BY HAND MIXER UP TO CHAIR FOR LUNCH. REPORTS PAIN HAS IMPROVED SINCE TYLENOL AND HE HAD A GOOD NAP. DISCUSSED PLAN FOR THERAPYS AFTER LUNCH. PT AGREEABLE. CALL LIGHT AND PERSONAL ITEMS WITHIN [facility]. ATBEDSIDE.
--- NOTE | 2021-02-25 11:43 | NUR ---
THIS HORSE RIDING COACH OR INSTRUCTOR HELPED PT UP TO CHAIR. PT HAS A WARM BLANKET AND TWO PILLOWS BEHIND THEM. PT IS NOW EATING LUNCH. CALL LIGHT IS WITHIN REACH. NO FURTHER NEEDS AT THIS TIME.
--- NOTE | 2021-02-25 13:12 | NUR ---
OCCUPATIONAL THERAPY IN TO WORK WITH PT.
--- NOTE | 2021-02-25 14:52 | EKG ---
[facility] [address] [place], [place] [address] Signed Atrial fibrillation Right axis deviation Nonspecific ST and T wave abnormality Abnormal ECG When compared with ECG of 14-NOV-2020 08:34, T wave inversion no longer evident in Anterior leads Confirmed by FAY MCINTYRE DO ([id number]) on 02/25/2021 2:52:48 PM Electronically Signed By: FAY MCINTYRE DO 02/25/21 1452 PATIENT NAME: ONEIDA YANEZ Electrocardiogram DATE OF : 35 PHYSICIAN: FAY MCINTYRE DO REPORT #: [id number] REPORT IS CONFIDENTIAL AND NOT TO BE RELEASED WITHOUT AUTHORIZATION
--- NOTE | 2021-02-25 16:00 | NUR ---
PT FINISHED WORKING WITH PHYSICAL THERRAPY AMBULATING OUT IN HALLS. SITTING UP IN CHAIR. WOULD LIKE TO NAP. AMULTAED SBA BACK TO BED. PT AGREEABLE TO GET UP FOR DINNER. ABX INFUSING. CALL LIGHT AND PERSONAL ITEMS WITHIN REACH.
--- NOTE | 2021-02-25 17:11 | NUR ---
THIS ARMY RANGER CHANGED PT'S BRIEF. PT HAD A X3 OF URINE. THIS ARMY RANGER APPLIED BARRIER CREAM TO PTS BOTTOM. THIS ARMY RANGER AND DADA MIKE FLOATED PT'S HIPS AND BOOSTED PT UP IN BED. PT IS NOW EATING DINNER. CALL LIGHT IS WITHIN REACH. NO FURTHER NEEDS AT THIS TIME.
--- NOTE | 2021-02-25 19:05 | NUR ---
SHIFT REPORT RECEIVED FROM DAYSHIFT RN MARAH AT BEDSIDE. pt AWAKE AND RESTING IN BED, AWOKE TO VOICE. RR EVEN AND UNLABORED. IV SITE WNL, SALINE LOCKED. NO NEEDS VERBALIZED, CALL LIGHT IN REACH.
--- NOTE | 2021-02-25 20:20 | NUR ---
in to assist pt with new attends, pt awoken to incont void, vitals done, i&os done, trash emptied, no further needs at this time
--- NOTE | 2021-02-25 20:36 | NUR ---
ASSESSMENT COMPLETE, SCHEDULED MEDS GIVEN (SEE EMAR). VSS, pt ON RA, RR EVEN AND UNLABORED. NO DISTRESS NOTED. APICAL HR WNL, IRREGULAR, HX AFIB. pt DENIES PAIN AND SOB. RECENTLY BOOSTED IN BED BY WEAVING LOOM OPERATOR AND FOREST FIREFIGHTER. HOB ELEVATED, SNACK AND FRESH WATER AT BEDSIDE. HEEL PROTECTORS AND MITTENS IN PLACE. NO ADDITIONAL NEEDS, CALL LIGHT IN REACH.
--- NOTE | 2021-02-25 21:04 | NUR ---
EVENING BREATHING TREATMENTS GIVEN PER REQUEST OF RT. NO FURTHER NEEDS, CALL LIGHT IN REACH.
--- NOTE | 2021-02-25 22:00 | NUR ---
pt INCONTINENT OF URINE, STATING, "I WOKE UP AND REALIZED I HAD TO GO AND BEORE I COULD CALL YOU I WENT". NANCIE CARE DONE WITH HELP FROM WHEEL PRESS OPERATOR MORALES. BARRIER CREAM APPLIED TO GROIN FOLDS, BOOSTED IN BED. PILLOW UNDER LEF HIP. HEEL PROTECTORS IN PLACE. HOB ELEVATED. NO ADDITIONAL NEEDS, IV ABX ALSO STARTED PER MD ORDERS. IV ISTE WNL. CALL LIGHT IN REACH.
--- NOTE | 2021-02-26 00:45 | NUR ---
pt RESTING QUIETLY IN BED, EYES CLOSED. RR EVEN AND UNLABORED. NO DISTRESS NOTED. HOB ELEVATED. IV ABX INFUSING PER MD ORDERS, CALL LIGHT IN REACH.
--- NOTE | 2021-02-26 01:05 | NUR ---
ROUNDED ON pt, pt AWOKE TO VOICE. CHECKED ATTENDS, ATTENDS DRY AT THIS TIME. PRN TYLENOL GIVEN PER pt REQUEST FOR HEADACHE. RN OPAL IN ROOM TO ASSIST WITH REPOSITIONING, pt BOOSTED IN BED, BILATERAL HIPS FLOATED. BLE ALSO ELEVATED WIH PILLOW X1, HEEL PROTECTORS ALSO IN PLACE. NO FURTHER NEEDS, IV SITE REMAINS WNL. CALL LIGHT IN REACH.
--- NOTE | 2021-02-26 03:10 | NUR ---
IN TO CHECK ON PT, IVPUMP ALARMING AND PT FELT LIKE HE WAS 'WADDED UP IN THE BED' FRESH ICE WATER PROVIDED, REMOVED LEFT HIP PILLOW FOR PT STEPPED OUT TO GRAB ASSISTANCE WITH BOOST, PT STATED HE BREIFLY FELT THE URGE TO VOID THEN IS WENT AWAY, CHAIN MACHINE OPERATOR FINISHED ADJUSTING PILLOWS FOR PT, OT REQUESTING PILLOW BACK UNDER LEFT HIP, NO FURTHER NEEDS AT THIS TIME
--- NOTE | 2021-02-26 03:25 | NUR ---
BACK IN TO CHECK UP PT TO CONFIRM IF PT WAS STILL DRY AFTER PT TOLD THIS GOLD AND SILVER ASSAYER ABOUT NOT NEEDING TO VOID, RN INFORMED
--- NOTE | 2021-02-26 05:15 | NUR ---
pt REPOSITIONED IN BED, PILLOW NOW UNDER RIGHT HIP AND LEFT UPPER ARM. BLE ALSO ELEVATED WITH PILLOW X1 AND BILATERAL HEEL PROTECTORS IN PLACE. MINIMAL REDDNESS NOTED TO BUTTOCKS, NO CHANGE SINCE START OF SHIFT, BLANCHABLE. ASSESSMENT COMPLETE, NO NEW CHANGES OR CONCERNS. HOB ELEVATED, ORAL CARE PROVIDED AND CHAPSTICK APPLIED. pt DENIES NEED TO VOID, DRY ATTENDS IN PLACE. URINAL PROVIDED, 250MLS OUTPUT NOTED. CLOUDY WITH SOME SEDIMENT. CALL LIGHT IN REACH.
--- NOTE | 2021-02-26 05:45 | NUR ---
SCHEDULED IV ABX GIVEN (SEE EMAR), IV SITE WNL. ABX INFUSING PER MD ORDERS. NO FURTHER NEEDS, CALL LIGHT IN REACH.
--- NOTE | 2021-02-26 08:30 | NUR ---
REPORT RECEIVED FROM NIGHT RN AND PT CARE RESUMED. PT. REPORTS BEING TIRED THIS MORNING. HE IS DROWSY BUT ORIENTED. HIS IS AT BEDSIDE. HE DENIES PAIN AND NAUSEA. IV SITES WNL AND FLUSH WELL. PT. C/O TENDERNESS IN LEFT HEAL. HEAL IS SLIGHTLY RED BUT BLANCHABLE. HEAL PROTECTORS IN PLACE AND PT. ASSISTED WITH REPOSITIONING. DISCUSSED MEDS, POC AND ACTIVITY PLANNING WITH CHF. PT. LEFT RESTING WITH CALL LIGHT IN REACH.
[2021-02-26] MEDS ORDERED: TAMSULOSIN HCL0.4 MG PO (11:34)
[2021-02-26] MEDS ORDERED: KLOR-CON 1010 MEQ PO (11:35)
[2021-02-26] MEDS ORDERED: AUGMENTIN 875-1 EACH PO (11:41)
--- NOTE | 2021-02-26 11:59 | NUR ---
BLOOD GLUCOSE WAS 444 AND MD NOTIFIED. NO NEW ORDERS. SLIDING SCALE HUMALOG ADMIN.
--- NOTE | 2021-02-26 13:06 | NUR ---
DISCHARGE INSTRUCTIONS DONE WITH PATIENT AND . NO QUESTIONS. IVS DC'S AND WNL. WHEELED OUT. VITALS STABLE.
--- NOTE | 2021-02-28 08:45 | NUR ---
SPOKE WITH KERWIN BY PHONE. SHE IS AWARE OF HOME HEALTH ORDER. THEY HAVE USED [facility] IN THE PAST AND WOULD BE OK TO USE THEM AGAIN. SHE STATES THEY PICKED UP MEDICATIONS AND PATIENT HAS STARTED WITHOUT PROBLEMS. HE IS GETTING AROUND WITH [facility]. ONLY PROBLEM HAS BEEN THE INCONTINENCE. SHE IS AWARE OF F/U APPOINTMENT AND IS NOT WORRIED ABOUT TRANSPORTAION. SHE STATES HE IS RESTING MORE COMFORTABLY AT HOME. SHE HAS NO CONCERNS AT THIS TIME. DISCUSSED HOME HEALTH WILL CONTACT THEM DIRECTLY. CALLED [facility] SPOKE WITH JULIO. SHE STATES THEY SHOULD BE ABLE TO ACCOMODATE AND TO SEND ORDERS OVER.
== END 2021-02-26 13:00 | disposition home health service (06) | DRG 690 ==
LOC: ED 17:33 → MS 17:34
PROVIDERS: ADMIT Student in an Organized Health Care Education/Training Program; ATTEND Student in an Organized Health Care Education/Training Program
DX: N39.0 Urinary tract infection, site not specified (principal); I50.32 Chronic diastolic (congestive) heart failure; I13.0 Hypertensive heart and chronic kidney disease with heart failure and stage 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, or unspecified chronic kidney disease; N17.9 Acute kidney failure, unspecified; J44.9 Chronic obstructive pulmonary disease, unspecified; Z66 Do not resuscitate; M10.9 Gout, unspecified; I25.10 Atherosclerotic heart disease of native coronary artery without angina pectoris; E78.5 Hyperlipidemia, unspecified; I48.91 Unspecified atrial fibrillation; N18.9 Chronic kidney disease, unspecified; E86.0 Dehydration; I27.20 Pulmonary hypertension, unspecified; Z20.822 Contact with and (suspected) exposure to COVID-19; E11.51 Type 2 diabetes mellitus with diabetic peripheral angiopathy without gangrene; E11.42 Type 2 diabetes mellitus with diabetic polyneuropathy; K21.9 Gastro-esophageal reflux disease without esophagitis; E86.1 Hypovolemia; J30.9 Allergic rhinitis, unspecified; N40.1 Benign prostatic hyperplasia with lower urinary tract symptoms; R35.0 Frequency of micturition; B96.1 Klebsiella pneumoniae [K. pneumoniae] as the cause of diseases classified elsewhere; E11.22 Type 2 diabetes mellitus with diabetic chronic kidney disease; Z86.718 Personal history of other venous thrombosis and embolism; Z87.891 Personal history of nicotine dependence; Z98.890 Other specified postprocedural states; Z95.5 Presence of coronary angioplasty implant and graft; Z88.6 Allergy status to analgesic agent; Z88.1 Allergy status to other antibiotic agents; Z88.8 Allergy status to other drugs, medicaments and biological substances; Z79.899 Other long term (current) drug therapy; Z79.51 Long term (current) use of inhaled steroids; Z79.84 Long term (current) use of oral hypoglycemic drugs
CPT/HCPCS: 51702; 71045; 74176; 80048; 80053; 80162; 81001; 83605; 83735; 83880; 84484; 85025; 87088; 93005; 93010; 94640; 94760; 96376; 97116; 97162; 97166; 97530; 97535; 99285-25; C9803; G0378; J1650; J1815; J2543; J3475; J7040; J7121; U0003

== ENCOUNTER 2021-04-05 10:29 | Emergency (ER) | payer MEDICARE, OTHER ==
[~2021-04-05] VITALS: Ht 170.2 cm; Wt 59.1 kg
[~2021-04-05 10:29] MED LIST changes: +AUGMENTIN 875-1 EACH PO; +BUDESONIDE0.5 MG/2 M INH; +TAMSULOSIN HCL0.4 MG PO
--- OUTSIDE RECORDS SUMMARY | 2021-04-05 10:32 | XMS ---
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 No recent Security Events currently on file CRITERIA MET - PDMP CARE PROVIDERS SUSANA COSME Architectural Coating Finisherhardik Tai PHONE: [phone] LAURIE SARMIENTO Internal Medicine Current PHONE: [phone] JOMAR HERNDON Nurse Practitioner Current PHONE: [phone] DONAVAN [facility] 09/01/2020-Current PHONE: [phone] GISELL JORDAN Nurse Practitioner: Family Current PHONE: Unknown BANG CROUCH Architectural Coating Finisher Current EVENS MIRAMONTES PHONE: [phone] STEFFANY Nurse Practitioner Current ARRON DOMINGUEZ PHONE: [phone] LETICIA ARENAS Family Medicine Current PHONE: [phone] MAXIMILIANO MEIER Family Medicine 09/17/2020-Current PHONE: [phone] Phan has no Care Guidelines for this patient. Care History Medical/Surgical 01/05/2021 [facility] CALLED HOME HEALTH [...] HOME VISIT. E.D. VISIT COUNT (12 MO.) 8 [facility] TOTAL 8 NOTE: Visits indicate total known visits. 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 - Non-pressure chronic ulcer of other part of left foot with unspecified severity - Allergy status to other drugs, medicaments and biological substances - Personal history of nicotine dependence - parts counterman (current) use of anticoagulants - Allergy status to analgesic agent - nursing home (current) use of systemic steroids - Allergy status to other antibiotic agents - Unspecified atrial fibrillation - Other snf (current) drug therapy 08/31/2020 12:17 [facility] TYPE: Emergency COMPLAINT: - COPD INPATIENT VISIT TRACKING (12 MO.) 02/24/2021 09:44 [facility] TYPE: Medical Surgical COMPLAINT: - UTI DIAGNOSES: - Other specified postprocedural states - Do not resuscitate - Other specified postprocedural states - Klebsiella pneumoniae [K. pneumoniae] as the cause of diseases classified elsewhere - Chronic kidney disease, unspecified - Type 2 diabetes mellitus with diabetic peripheral angiopathy without gangrene - Personal history of other venous thrombosis and embolism - Chronic diastolic (congestive) heart failure - Unspecified atrial fibrillation - Hyperlipidemia, unspecified - Chronic obstructive pulmonary disease, unspecified - Urinary tract infection, site not specified - Hypovolemia - Allergy status to analgesic agent - Allergy status to other antibiotic agents - Hypertensive heart and chronic kidney disease with heart failure and stage 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, or unspecified chronic kidney disease - Allergy status to analgesic agent - Gout, unspecified - Allergic rhinitis, unspecified - Pulmonary hypertension, unspecified - Chronic kidney disease, unspecified - Do not resuscitate - Presence of coronary angioplasty implant and graft - Chronic diastolic (congestive) heart failure - Dehydration - Acute kidney failure, unspecified - Acute kidney failure, unspecified - Personal history of nicotine dependence - Other rodent exterminator (current) drug therapy - Personal history of other venous thrombosis and embolism - parts counterman (current) use of oral hypoglycemic drugs - Hypertensive heart and chronic kidney disease with heart failure and stage 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, or unspecified chronic kidney disease - Allergy status to other antibiotic agents - Personal history of nicotine dependence - nursing home (current) use of inhaled steroids - Allergy status to other drugs, medicaments and biological substances - Type 2 diabetes mellitus with diabetic peripheral angiopathy without gangrene - Frequency of micturition - Benign prostatic hyperplasia with lower urinary tract symptoms - Other rodent exterminator (current) drug therapy - Pulmonary hypertension, unspecified - parts counterman (current) use of inhaled steroids - Type 2 diabetes mellitus with diabetic chronic kidney disease - 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 - Chronic obstructive pulmonary disease, unspecified - 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 - Allergic rhinitis, unspecified - Dehydration - Type 2 diabetes mellitus with diabetic polyneuropathy - Presence of coronary angioplasty implant and graft - Unspecified atrial fibrillation - Type 2 diabetes mellitus with diabetic polyneuropathy - Gastro-esophageal reflux disease without esophagitis - Type 2 diabetes mellitus with diabetic chronic kidney disease - Allergy status to other drugs, medicaments and biological substances - Frequency of micturition - Gout, unspecified - Benign prostatic hyperplasia with lower urinary tract symptoms - nursing home (current) use of oral hypoglycemic drugs - Hypovolemia - Hyperlipidemia, unspecified - Klebsiella pneumoniae [K. pneumoniae] as the cause of diseases classified elsewhere - Gastro-esophageal reflux disease without esophagitis 12/31/2020 07:[address] 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 - Chronic kidney disease, unspecified - Personal history of other venous thrombosis and embolism - Chronic obstructive pulmonary disease, unspecified - Traumatic subdural hemorrhage without loss of consciousness, initial encounter - Acquired absence of other organs - nursing home (current) use of anticoagulants - Fall on [...] embolism - Do not resuscitate - Other rodent exterminator (current) drug therapy - Hypertensive heart and chronic kidney disease with heart failure and stage 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, or unspecified chronic kidney disease - Anemia in chronic kidney disease - Other rodent exterminator (current) drug therapy - Chronic kidney disease, [...] other antibiotic agents - Unspecified place in prison as the place of occurrence of the external cause - Other specified postprocedural states - parts counterman (current) use of anticoagulants - Hypertensive heart and chronic kidney disease with heart failure and stage 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, or unspecified chronic kidney disease - Anemia in chronic kidney disease - Paroxysmal atrial fibrillation - Heart failure, unspecified - Chronic obstructive pulmonary disease, unspecified - Acquired absence of other organs - Paroxysmal atrial fibrillation - Unspecified place in prison as the place of occurrence of the [...] Diaphragmatic hernia without obstruction or gangrene - nursing home (current) use of inhaled steroids - Type 2 diabetes mellitus with diabetic chronic kidney disease - nursing home (current) use of insulin - Gout, unspecified [...] disease, or unspecified chronic kidney disease - parts counterman (current) use of systemic steroids - Acute embolism and thrombosis of deep veins of right upper extremity - Gout, unspecified - nursing home (current) use of inhaled steroids - Acute embolism and thrombosis of deep veins of right upper extremity - Other snf (current) drug therapy - parts counterman (current) use of systemic steroids - Diaphragmatic hernia without obstruction or gangrene - Hemorrhagic disorder due to extrinsic circulating anticoagulants - Cachexia - Chronic pain syndrome - Chronic kidney disease, stage 3 unspecified - Chronic systolic (congestive) heart failure - Adverse effect of anticoagulants, initial encounter - Other snf (current) drug therapy - 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 - Diverticulosis [...] kidney disease - 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 - Allergy [...] disease, or unspecified chronic kidney disease - parts counterman (current) use of insulin - Allergy status [...] lower limb - 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 - parts counterman (current) use of oral hypoglycemic drugs - [...] - Personal history of nicotine dependence - nursing home (current) use of systemic steroids - Allergy status to other antibiotic agents - Weakness - Gout, unspecified - Pulmonary hypertension, unspecified - Other disorders of bilirubin metabolism - Paroxysmal atrial fibrillation - parts counterman (current) use of anticoagulants - Type 2 diabetes mellitus with other skin complications - Chronic obstructive pulmonary disease, unspecified 10/09/2020 10:05 [facility] TYPE: Medical [facility] COMPLAINT: - TC DIABETIC WOUND DIAGNOSES: - Acute on chronic systolic (congestive) heart failure - parts counterman (current) use of systemic steroids - Pulmonary hypertension, unspecified - nursing home (current) use of inhaled steroids - Type 2 diabetes mellitus with foot ulcer - nursing home (current) use of anticoagulants - parts counterman (current) use of oral hypoglycemic drugs - Allergy status to other antibiotic agents - parts counterman (current) use of oral hypoglycemic drugs - Allergy status to other antibiotic agents - Other rodent exterminator (current) drug therapy - Paroxysmal atrial fibrillation - Acute kidney failure, unspecified - parts counterman (current) use of anticoagulants - Non-pressure chronic ulcer of left heel and midfoot with fat layer exposed - Non-pressure chronic ulcer of left heel and midfoot with fat layer exposed - 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 - Acute [...] kidney disease - 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 - Chronic obstructive pulmonary disease, unspecified - Allergy status to other drugs, medicaments and biological substances - parts counterman (current) use of systemic steroids - Allergy status to other drugs, medicaments and biological substances - Acute embolism and thrombosis of deep veins of right upper extremity - Acute on chronic systolic (congestive) heart failure - Gout, unspecified - Chronic kidney disease, unspecified - Other snf (current) drug therapy - Chronic kidney disease, unspecified - nursing home (current) use of inhaled steroids 10/04/2020 14:07 [facility] TYPE: Medical [facility] COMPLAINT: - DIABETIC WOUND DIAGNOSES: - Paroxysmal atrial fibrillation - parts counterman (current) use of systemic steroids - Cellulitis of left lower limb - Acute pyelonephritis - Type 2 diabetes mellitus with diabetic peripheral angiopathy without gangrene - Cellulitis of right lower limb - Adverse effect of cephalosporins and other beta-lactam antibiotics, initial encounter - Other rodent exterminator (current) drug therapy - Allergy status to other antibiotic agents - Chronic obstructive pulmonary disease, unspecified - Personal history of nicotine dependence - Chronic kidney disease, unspecified - 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 - Type 2 diabetes mellitus with hypoglycemia without coma - Acute kidney failure, unspecified - Myocardial infarction type 2 - Chronic obstructive pulmonary disease with (acute) exacerbation - nursing home (current) use of anticoagulants - Cardiomyopathy, unspecified - Other snf (current) drug therapy - Unspecified place in hospital as the place of occurrence of the external cause - nursing home (current) use of antithrombotics/antiplatelets - Adverse effect of insulin and oral hypoglycemic [antidiabetic] drugs, initial encounter [email or web address]
[2021-04-05] MEDS ORDERED: AUGMENTIN 875-1 EACH PO (14:17)
== END 2021-04-05 14:45 | disposition home or self-care (01) ==
LOC: ED 10:29
DX: N39.0 Urinary tract infection, site not specified (principal); I13.0 Hypertensive heart and chronic kidney disease with heart failure and stage 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, or unspecified chronic kidney disease; E11.22 Type 2 diabetes mellitus with diabetic chronic kidney disease; N18.9 Chronic kidney disease, unspecified; I50.9 Heart failure, unspecified; E78.5 Hyperlipidemia, unspecified; K21.9 Gastro-esophageal reflux disease without esophagitis; M10.9 Gout, unspecified; J90 Pleural effusion, not elsewhere classified; D63.1 Anemia in chronic kidney disease; E11.40 Type 2 diabetes mellitus with diabetic neuropathy, unspecified; Z20.822 Contact with and (suspected) exposure to COVID-19; Z87.891 Personal history of nicotine dependence; Z88.1 Allergy status to other antibiotic agents; Z88.6 Allergy status to analgesic agent; Z88.8 Allergy status to other drugs, medicaments and biological substances; Z79.899 Other long term (current) drug therapy
CPT/HCPCS: 71045; 80053; 81001; 83880; 85025; 99285-25; C9803; U0003

== ENCOUNTER 2021-04-07 15:02 | Emergency (ER) | payer MEDICARE, OTHER ==
[~2021-04-07] VITALS: Ht 170.2 cm; Wt 59.0 kg
--- OUTSIDE RECORDS SUMMARY | 2021-04-07 15:10 | XMS ---
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 currently on file CRITERIA MET - [facility] - 2 Visits in 30 Days - 6 ED Visits in 6 Months CARE PROVIDERS SUSANA COSMEiatrhardik Tai PHONE: [phone] LAURIE SARMIENTO Internal Medicine Current PHONE: [phone] JOMAR HERNDON Nurse Practitioner Current PHONE: [phone] DONAVAN [facility] 09/01/2020-Current PHONE: [phone] GISELL JORDAN Nurse Practitioner: Family Current PHONE: Unknown B[employer]CH [employer] Current EVENS MIRAMONTES PHONE: [phone] STEFFANY Nurse Practitioner Current ARRON DOMINGUEZ PHONE: [phone] LETICIA ARENAS Family Medicine Current PHONE: [phone] MAXIMILIANO MEIER Family Medicine 09/17/2020-Current PHONE: [phone] Phan has no Care Guidelines for this [...] HOME VISIT. E.D. VISIT COUNT (12 MO.) 9 [facility] TOTAL 9 NOTE: Visits indicate total known visits. ED/UCC VISIT TRACKING (12 MO.) 04/07/2021 15:03 [facility] [place] TYPE: Emergency COMPLAINT: - WATER IN HIS LUNGS 04/05/2021 10:29 [facility] [place] [...] Hyperlipidemia, unspecified - Atherosclerotic heart disease of [place] coronary artery without angina pectoris - Non-pressure chronic ulcer of other part of left foot with unspecified severity - Allergy status to other drugs, medicaments and biological substances - Personal history of nicotine dependence - [facility] (current) use of anticoagulants - Allergy status to analgesic agent - long term care administrator (current) use of systemic steroids - Allergy status to other antibiotic agents - Unspecified atrial fibrillation - Other intermediate (current) drug therapy 08/31/2020 12:17 [facility] Montes [...] Personal history of nicotine dependence - Other long term care administrator (current) drug therapy - Personal history of other venous thrombosis and embolism - [facility] (current) use of oral hypoglycemic drugs - Hypertensive heart and chronic kidney disease with heart failure and stage 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, or unspecified chronic kidney disease - Allergy status to other antibiotic agents - Personal history of nicotine dependence - [facility] (current) use of inhaled steroids - Allergy status to other drugs, medicaments and biological substances - Type 2 diabetes mellitus with diabetic peripheral angiopathy without gangrene - Frequency of micturition - Benign prostatic hyperplasia with lower urinary tract symptoms - Other long term care administrator (current) drug therapy - Pulmonary hypertension, unspecified - long term care administrator (current) use of inhaled steroids - Type 2 diabetes mellitus with diabetic chronic kidney disease - Atherosclerotic heart disease of [place] coronary artery without angina pectoris - Chronic obstructive pulmonary disease, unspecified - Atherosclerotic heart disease of [place] coronary artery without angina pectoris - Allergic [...] hyperplasia with lower urinary tract symptoms - long term care administrator (current) use of oral hypoglycemic drugs - Hypovolemia - Hyperlipidemia, unspecified - Klebsiella pneumoniae [K. pneumoniae] as the cause of diseases classified elsewhere - Gastro-esophageal reflux disease without esophagitis 12/31/2020 07:[address] [facility] [place] TYPE: Medical Surgical COMPLAINT: - HEMORRHAGIC STROKE DIAGNOSES: - Atherosclerotic heart disease of [place] coronary artery without angina pectoris - Gout, unspecified - Traumatic subarachnoid hemorrhage without loss of consciousness, initial encounter - Pulmonary hypertension, unspecified - Atherosclerotic heart disease of [place] coronary artery without angina pectoris - Chronic [...] embolism - Do not resuscitate - Other long term care administrator (current) drug therapy - Hypertensive heart and chronic kidney disease with heart failure and stage 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, or unspecified chronic kidney disease - Anemia in chronic kidney disease - Other long term care administrator (current) drug therapy - Chronic kidney disease, [...] other antibiotic agents - Unspecified place in [facility]ci as the place of occurrence of the [...] Paroxysmal atrial fibrillation - Unspecified place in [facility] as the place of occurrence of the [...] mellitus with diabetic chronic kidney disease - long term care administrator (current) use of insulin - Gout, unspecified [...] disease, or unspecified chronic kidney disease - long term care administrator (current) use of systemic steroids - Acute embolism and thrombosis of deep veins of right upper extremity - Gout, unspecified - long term care administrator (current) use of inhaled steroids - Acute embolism and thrombosis of deep veins of right upper extremity - Other intermediate (current) drug therapy - [facility] (current) use of systemic steroids - Diaphragmatic hernia without obstruction or gangrene - Hemorrhagic disorder due to extrinsic circulating anticoagulants - Cachexia - Chronic pain syndrome - Chronic kidney disease, stage 3 unspecified - Chronic systolic (congestive) heart failure - Adverse effect of anticoagulants, initial encounter - Other intermediate (current) drug therapy - Atherosclerotic heart disease of [place] coronary artery without angina pectoris - Diverticulosis [...] kidney disease - Atherosclerotic heart disease of [place] coronary artery without angina pectoris - Allergy [...] disease, or unspecified chronic kidney disease - long term care administrator (current) use of insulin - Allergy status [...] lower limb - Atherosclerotic heart disease of [place] coronary artery without angina pectoris - long term care administrator (current) use of oral hypoglycemic drugs - [...] bilirubin metabolism - Paroxysmal atrial fibrillation - long term care administrator (current) use of anticoagulants - Type 2 diabetes mellitus with other skin complications - Chronic obstructive pulmonary disease, unspecified 10/09/2020 10:05 [facility] [place] TYPE: Medical Surgical COMPLAINT: - TC DIABETIC WOUND DIAGNOSES: - Acute on chronic systolic (congestive) heart failure - [facility] (current) use of systemic steroids - Pulmonary hypertension, unspecified - [facility] (current) use of inhaled steroids - Type 2 diabetes mellitus with foot ulcer - [facility] (current) use of anticoagulants - [facility] (current) use of oral hypoglycemic drugs - Allergy status to other antibiotic agents - long term care administrator (current) use of oral hypoglycemic drugs - Allergy status to other antibiotic agents - Other intermediate (current) drug therapy - Paroxysmal atrial fibrillation - Acute kidney failure, unspecified - [facility] (current) use of anticoagulants - Non-pressure chronic ulcer of left heel and midfoot with fat layer exposed - Non-pressure chronic ulcer of left heel and midfoot with fat layer exposed - Atherosclerotic heart disease of [place] coronary artery without angina pectoris - Acute [...] kidney disease - Atherosclerotic heart disease of [place] coronary artery without angina pectoris - Chronic [...] - Chronic kidney disease, unspecified - Other intermediate (current) drug therapy - Chronic kidney disease, unspecified - [facility] (current) use of inhaled steroids 10/04/2020 14:07 [facility] TYPE: Medical Surgical COMPLAINT: - DIABETIC WOUND DIAGNOSES: - Paroxysmal atrial fibrillation - long term care administrator (current) use of systemic steroids - Cellulitis of left lower limb - Acute pyelonephritis - Type 2 diabetes mellitus with diabetic peripheral angiopathy without gangrene - Cellulitis of right lower limb - Adverse effect of cephalosporins and other beta-lactam antibiotics, initial encounter - Other long term care administrator (current) drug therapy - Allergy status to other antibiotic agents - Chronic obstructive pulmonary disease, unspecified - Personal history of nicotine dependence - Chronic kidney disease, unspecified - Atherosclerotic heart disease of [place] coronary artery without angina pectoris - Acute kidney failure, unspecified - Type 2 diabetes mellitus with diabetic chronic kidney disease - Allergy status to other drugs, medicaments and biological substances - Unspecified open wound, left foot, initial encounter [facility] [place] [facility] COMPLAINT: - GOUTY ARTHRITIS [...] disease, unspecified 13. Atherosclerotic heart disease of [place] coronary artery without angina pectoris 14. Tachycardia, [...] of both mitral and tricuspid valves - [facility] (current) use of oral hypoglycemic drugs - Chronic kidney disease, unspecified - Adverse effect of glucocorticoids and synthetic analogues, initial encounter - Type 2 diabetes mellitus with hyperglycemia - [facility] (current) use of systemic steroids - Type 2 diabetes mellitus with diabetic chronic kidney disease - Acute respiratory failure with hypoxia - [facility] (current) use of inhaled steroids - Atherosclerotic heart disease of [place] coronary artery without angina pectoris - Type 2 diabetes mellitus with hypoglycemia without coma - Acute kidney failure, unspecified - Myocardial infarction type 2 - Chronic obstructive pulmonary disease with (acute) exacerbation - long term care administrator (current) use of anticoagulants - Cardiomyopathy, unspecified - Other intermediate (current) drug therapy - Unspecified place in hospital as the place of occurrence of the external cause - [facility] (current) use of antithrombotics/antiplatelets - Adverse effect of insulin and oral hypoglycemic [antidiabetic] drugs, initial encounter [email or web address]
[2021-04-07] MEDS ORDERED: AMOX TR-K CLV1 EAC1 PO (15:30)
[2021-04-07] MEDS ORDERED: ARFORMOTER15 MCG/2 M INH (15:31)
--- NOTE | 2021-04-08 11:38 | CONS ---
[facility] [address] [place], [place] [address] Signed DATE OF CONSULTATION: 04/07/2021 TIME: 05:55 p.m. REQUESTING PHYSICIAN: Dr. Montes. PROBLEM: CT scan showing moderate right pleural effusion with dyspnea, underlying probable congestive heart failure and multiple other medical problems. HISTORY OF PRESENT ILLNESS: This 86-year-old white man is a patient of Dr. Meier and care partially undertaken today by Mamta Blandon. The patient has had shortness of breath since April 02, 2021. Concerns were maintained for possible pulmonary embolism and he was seen in the emergency room several days ago. A CT scan was not obtained. The patient has been off anticoagulants due to a significant gastrointestinal bleed in the past. The patient has underlying diabetes, hypertension, coronary artery disease, history of congestive heart failure, chronic kidney disease, pulmonary hypertension and peripheral vascular disease with idiopathic neuropathy. He has also had a DVT in his right upper arm. A CT scan was obtained today as an outpatient and I was called by ROMARIO Tapia noting that a pleural effusion was noted. His dyspnea was such that she considered the idea of right thoracentesis. Given the distress that was reported, he was sent to the emergency room, evaluated by Dr. Montes, although somewhat dyspneic, not markedly so. The CT scan was reviewed by myself and Dr. Montes showing in the supine position a pleural effusion on the right side and less so on the left and a small pericardial effusion. The upright exam shows basilar effusion dominantly. Consideration is made for right thoracentesis to improve his dyspnea. The risk of bleeding, infection, pneumothorax, and other unforeseen complications related to thoracentesis were reviewed with the patient and his . They understand and wished to proceed. DESCRIPTION OF PROCEDURE: In the upright position, the posterior thorax was prepared with a chlorhexidine solution and draped sterilely. The scapula was easily visible as the patient is quite cachectic overall. An area corresponding to the 7th rib in relation to the tip of the scapula was easily identified and local anesthetic with a very thin 25-gauge needle undertaken. Puncture into the pleural space did not reveal any fluid. Two additional areas were taken more laterally along the same rib again showing no significant fluid. Rather than placing the large pleural catheter at this point, it was deemed advisable to simply do a chest x-ray and assess if the effusion is present and certainly if there has been any development of pneumothorax. Electronically Signed By: DEVYN HILL MD 04/08/21 1138 PATIENT NAME: ONEIDA YANEZ CONSULTATION DATE OF : 35 REPORT #: [id number] PHYSICIAN: DEVYN HILL MD PCP: MAXIMILIANO MEIER MD REPORT IS CONFIDENTIAL AND NOT TO BE RELEASED WITHOUT AUTHORIZATION [address] [address] Signed PLAN: If there is no pneumothorax and the pleural effusion does not appear clinically problematic on chest x-ray, we will assume that the dyspnea is not related to the underlying pleural effusion, but rather to other underlying causes including small microemboli that were identified on the CT scan. If significant pneumothorax is noted, small chest tube may be required. ADDENDUM: Review of the post initial thoracentesis chest x-ray shows no evidence of pneumothorax. The upright chest x-ray does not show much of a pleural effusion. There is admittedly in the right costal margin, blunting and so forth. Review of the CT scan over the phone with Dr. Palacios describes an effusion of about one-third of the right pleural space, not more than that and this is based on a CT scan done in the supine position of course. I believe it is more risky than beneficial at this point to additionally attempt further thoracentesis on the right side given his underlying tenuous lung situation, his known congestive heart failure and so forth. I think the chance of causing pneumothorax is relatively high in his particular situation. I did discuss this with the patient and his . Also reviewed his regimen for what is likely to be a congestive heart failure related effusion problem. From what I can gather, he has been on torsemide but has now been changing his dose from 5 mg tablet two p.o. daily to now one-fourth of one tablet daily. No doubt this was undertaken after great consideration by Dr. Meier and physician special education assistant Jamia and notably in relation to his renal status and so forth. Nevertheless, he may require a higher dose of diuretic to diminish the right pleural effusion and improve his dyspnea. A 10 mg dose of Torsemide would correspond to a 20 mg dose of lasix. His current dose is extremely low and an increase of the dose may better control his CHF related pleural effusion. Indeed, better control of chf with more aggressive diuresis would likely improve his renal function. Additionally, his dyspnea --though previously thought to be rather significant as an outpatient while under observation in the ER-- is really rather minimal and not completely atypical of many patients with underlying congestive heart failure and multiple medical problems as he has had. It is recalled that he does have small microemboli of the lungs, which may additionally contribute to this. He currently, as stated before, does not appear to be as dyspneic as he may have been earlier today and this week. If things should change, his effusion should worsen and he not respond to diuretic therapy, then consideration would be made once again for right-sided thoracentesis. Of course, if a second opinion with the hospitalist president ergonomic consulting is sought, then that would be certainly welcomed by me as well. Discussed all of this with Dr Montes in detail. Electronically Signed By: DEVYN HILL MD 04/08/21 1138 PATIENT NAME: ONEIDA YANEZN CONSULTATION DATE OF : 35 REPORT #: [id number] PHYSICIAN: DEVYN HILL MD PCP: MAXIMILIANO MEIER MD REPORT IS CONFIDENTIAL AND NOT TO BE RELEASED WITHOUT AUTHORIZATION [address] [address] Signed MD RUBEN Miles/MODL /[id number] cc: MD Dr. Juli Watters PA Copies: GIL MONTES MD ~ Electronically Signed By: DEVYN HILL MD 04/08/21 1138 PATIENT NAME: ONEIDA YANEZ CONSULTATION DATE OF : 35 REPORT #: [id number] PHYSICIAN: DEVYN HILL MD PCP: MAXIMILIANO MEIER MD REPORT IS CONFIDENTIAL AND NOT TO BE RELEASED WITHOUT AUTHORIZATION
--- NOTE | 2021-04-08 11:38 | CONS ---
[facility] [address] [place], [place] [address] Signed DATE OF CONSULTATION: 04/07/2021 TIME: 05:55 p.m. REQUESTING PHYSICIAN: Dr. Montes. PROBLEM: CT scan showing moderate right pleural effusion with dyspnea, underlying probable congestive heart failure and multiple other medical problems. HISTORY OF PRESENT ILLNESS: This 86-year-old white man is a patient of Dr. Meier and care partially undertaken today by Mamta Blandon. The patient has had shortness of breath since April 02, 2021. Concerns were maintained for possible pulmonary embolism and he was seen in the emergency room several days ago. A CT scan was not obtained. The patient has been off anticoagulants due to a significant gastrointestinal bleed in the past. The patient has underlying diabetes, hypertension, coronary artery disease, history of congestive heart failure, chronic kidney disease, pulmonary hypertension and peripheral vascular disease with idiopathic neuropathy. He has also had a DVT in his right upper arm. A CT scan was obtained today as an outpatient and I was called by ROMARIO Tapia noting that a pleural effusion was noted. His dyspnea was such that she considered the idea of right thoracentesis. Given the distress that was reported, he was sent to the emergency room, evaluated by Dr. Montes, although somewhat dyspneic, not markedly so. The CT scan was reviewed by myself and Dr. Montes showing in the supine position a pleural effusion on the right side and less so on the left and a small pericardial effusion. CT exam shows basilar effusion dominantly. Consideration is made for right thoracentesis to improve his dyspnea. The risk of bleeding, infection, pneumothorax, and other unforeseen complications related to thoracentesis were reviewed with the patient and his . They understand and wished to proceed. DESCRIPTION OF PROCEDURE: THORACENTESIS: In the upright position, the posterior thorax was prepared with a chlorhexidine solution and draped sterilely. The scapula was easily visible as the patient is quite cachectic overall. An area corresponding to the 7th rib in relation to the tip of the scapula was easily identified and local anesthetic with a very thin 25-gauge needle undertaken. Puncture into the pleural space did not reveal any fluid. Two additional areas were taken more laterally along the same rib again showing no significant fluid. Rather than placing the large pleural catheter at this point, it was deemed advisable to simply do a chest x-ray and assess if the effusion is present and certainly if there has been any development of pneumothorax. Electronically Signed By: DEVYN HLIL MD 04/08/21 1138 PATIENT NAME: ONEIDA YANEZ CONSULTATION DATE OF : 35 REPORT #: [id number] PHYSICIAN: DEVYN HILL MD PCP: MAXIMILIANO MEIER MD REPORT IS CONFIDENTIAL AND NOT TO BE RELEASED WITHOUT AUTHORIZATION [address] [address] Signed PLAN: If there is no pneumothorax and the pleural effusion does not appear clinically problematic on chest x-ray, we will assume that the dyspnea is not related to the underlying pleural effusion, but rather to other underlying causes including small microemboli that were identified on the CT scan. If significant pneumothorax is noted, small chest tube may be required. Devyn Hill MD JM/MODL /[id number] cc: MD Dr. Juli Watters PA Copies: GIL MONTES MD ~ Electronically Signed By: DEVYN HILL MD 04/08/21 1138 PATIENT NAME: ONEIDA YANEZ CONSULTATION DATE OF : 35 REPORT #: [id number] PHYSICIAN: DEVYN HILL MD PCP: MAXIMILIANO MEIER MD REPORT IS CONFIDENTIAL AND NOT TO BE RELEASED WITHOUT AUTHORIZATION
== END 2021-04-07 20:14 | disposition home or self-care (01) ==
LOC: ED 15:02
DX: I13.0 Hypertensive heart and chronic kidney disease with heart failure and stage 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, or unspecified chronic kidney disease (principal); E11.22 Type 2 diabetes mellitus with diabetic chronic kidney disease; N18.9 Chronic kidney disease, unspecified; I50.9 Heart failure, unspecified; I48.91 Unspecified atrial fibrillation; E11.40 Type 2 diabetes mellitus with diabetic neuropathy, unspecified; K21.9 Gastro-esophageal reflux disease without esophagitis; M10.9 Gout, unspecified; Z87.891 Personal history of nicotine dependence; Z88.6 Allergy status to analgesic agent; Z88.1 Allergy status to other antibiotic agents; Z88.8 Allergy status to other drugs, medicaments and biological substances; Z79.899 Other long term (current) drug therapy
CPT/HCPCS: 71045; 80053; 80162; 83880; 85025; 96374; 99285-25; J1940

== ENCOUNTER 2021-05-30 07:58 | Inpatient (IN) | payer MEDICARE, OTHER ==
[~2021-05-30] VITALS: Ht 170.2 cm; Wt 57.1 kg
[~2021-05-30 07:58] MED LIST changes: +AMOX TR-K CLV1 EAC1 PO; +ARFORMOTER15 MCG/2 M INH
--- OUTSIDE RECORDS SUMMARY | 2021-05-30 08:12 | XMS ---
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 Mold Cleaner Events No recent Security Events currently on file CRITERIA MET - PDMP CARE PROVIDERS SUSANA COSME Environmental Emergencies Plannerhardik Tai PHONE: [phone] LAURIE SARMIENTO Internal Medicine Current PHONE: [phone] JOMAR HERNDON Nurse Practitioner Current PHONE: [phone] DONAVAN [facility] 09/01/2020-Current PHONE: [phone] GISELL JORDAN Nurse Practitioner: Family Current PHONE: Unknown BANG CROUCH Environmental Emergencies Planner Current EVENS MIRAMONTES PHONE: [phone] STEFFANY Nurse Practitioner Current ARRON DOMINGUEZ PHONE: [phone] LETICIA ARENAS Family Medicine Current PHONE: [phone] MAXIMILIANO MEIER Family Medicine 09/17/2020-Current PHONE: [phone] Phan has no Care Guidelines for this patient. Care History Medical/Surgical 01/05/2021 [facility] - [facility] CALLED HOME HEALTH SERVICES-PATIENT IS [...] HOME VISIT. E.D. VISIT COUNT (12 MO.) 10 [facility] TOTAL 10 NOTE: Visits indicate total known visits. ED/UCC VISIT TRACKING (12 MO.) 05/30/2021 07:59 [facility] TYPE[facility] Emergency COMPLAINT: - LOWER L LEG PAIN 04/07/2021 15:03 [facility] TYPE: Emergency COMPLAINT: - WATER IN HIS LUNGS DIAGNOSES: - Other rodent exterminator (current) drug therapy - Hypertensive heart and chronic kidney disease with heart failure and stage 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, or unspecified chronic kidney disease - Personal history of nicotine dependence - Gastro-esophageal reflux disease without esophagitis - Chronic kidney disease, unspecified - Gout, unspecified - Unspecified atrial fibrillation - Allergy status to other drugs, medicaments and biological substances - Pleural effusion, not elsewhere classified - Heart failure, unspecified - Type 2 diabetes mellitus with diabetic neuropathy, unspecified - Allergy status to other antibiotic agents - Allergy status to analgesic agent - Type 2 diabetes mellitus with diabetic chronic kidney disease 04/05/2021 10:29 [facility] TYPE: Emergency COMPLAINT: - SOB DIAGNOSES: - Urinary tract infection, site not specified - Hypertensive heart and chronic kidney disease with heart failure and stage 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, or unspecified chronic kidney disease - Pleural effusion, not elsewhere classified - Allergy status to other drugs, medicaments and biological substances - Type 2 diabetes mellitus with diabetic chronic kidney disease - Anemia in chronic kidney disease - Other rodent exterminator (current) drug therapy - Personal history of nicotine dependence - Gout, unspecified - Chronic kidney disease, unspecified - Shortness of breath - Type 2 diabetes mellitus with diabetic neuropathy, unspecified - Gastro-esophageal reflux disease without esophagitis - Allergy status to other antibiotic agents - Hyperlipidemia, unspecified - Heart failure, unspecified - Allergy status to analgesic agent 02/23/2021 17:33 [facility] TYPE: Emergency COMPLAINT: - WEAKNESS 12/31/2020 02:34 [facility] TYPE: Emergency COMPLAINT: - FALL 11/14/2020 08:27 [facility] TYPE: Emergency COMPLAINT: - WEAKNESS 10/31/2020 02:29 [facility] [place] TYPE: Emergency COMPLAINT: - WEAKNESS 10/02/2020 [...] Hyperlipidemia, unspecified - Atherosclerotic heart disease of [place] coronary artery without angina pectoris - Non-pressure chronic ulcer of other part of left foot with unspecified severity - Allergy status to other drugs, medicaments and biological substances - Personal history of nicotine dependence - residential (current) use of anticoagulants - Allergy status to analgesic agent - rodent exterminator (current) use of systemic steroids - Allergy [...] of other venous thrombosis and embolism - rodent exterminator (current) use of oral hypoglycemic drugs - Hypertensive heart and chronic kidney disease with heart failure and stage 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, or unspecified chronic kidney disease - Allergy status to other antibiotic agents - Personal history of nicotine dependence - residential (current) use of inhaled steroids - Allergy status to other drugs, medicaments and biological substances - Type 2 diabetes mellitus with diabetic peripheral angiopathy without gangrene - Frequency of micturition - Benign prostatic hyperplasia with lower urinary tract symptoms - Other intermediate (current) drug therapy - Pulmonary hypertension, unspecified - rodent exterminator (current) use of inhaled steroids - Type 2 diabetes mellitus with diabetic chronic kidney disease - Atherosclerotic heart disease of [place] coronary artery without angina pectoris - Chronic obstructive pulmonary disease, unspecified - Atherosclerotic heart disease of [place] coronary artery without angina pectoris - Allergic [...] hyperplasia with lower urinary tract symptoms - rodent exterminator (current) use of oral hypoglycemic drugs - Hypovolemia - Hyperlipidemia, unspecified - Klebsiella pneumoniae [K. pneumoniae] as the cause of diseases classified elsewhere - Gastro-esophageal reflux disease without esophagitis 12/31/2020 07:[address] [facility] [place] TYPE: Medical Surgical COMPLAINT: - HEMORRHAGIC STROKE DIAGNOSES: - Atherosclerotic heart disease of [place] coronary artery without angina pectoris - Gout, unspecified - Traumatic subarachnoid hemorrhage without loss of consciousness, initial encounter - Pulmonary hypertension, unspecified - Atherosclerotic heart disease of [place] coronary artery without angina pectoris - Chronic kidney disease, unspecified - Personal history of other venous thrombosis and embolism - Chronic obstructive pulmonary disease, unspecified - Traumatic subdural hemorrhage without loss of consciousness, initial encounter - Acquired absence of other organs - rodent exterminator (current) use of anticoagulants - Fall on [...] other antibiotic agents - Unspecified place in senior living as the place of occurrence of the external cause - Other specified postprocedural states - residential (current) use of anticoagulants - Hypertensive heart and chronic kidney disease with heart failure and stage 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, or unspecified chronic kidney disease - Anemia in chronic kidney disease - Paroxysmal atrial fibrillation - Heart failure, unspecified - Chronic obstructive pulmonary disease, unspecified - Acquired absence of other organs - Paroxysmal atrial fibrillation - Unspecified place in senior living as the place of occurrence of the external cause - Gastro-esophageal reflux disease without esophagitis - Presence of coronary angioplasty implant and graft - Type 2 diabetes mellitus with diabetic chronic kidney disease - Pulmonary hypertension, unspecified - Presence of coronary angioplasty implant and graft - Allergy status to other drugs, medicaments and biological substances - Gastro-esophageal reflux disease without esophagitis 11/17/2020 09:05 [facility] TYPE: Medical Surgical COMPLAINT: - GI BLEED DIAGNOSES: - Paroxysmal atrial fibrillation - Pulmonary hypertension, unspecified - Diaphragmatic hernia without obstruction or gangrene - rodent exterminator (current) use of inhaled steroids - Type 2 diabetes mellitus with diabetic chronic kidney disease - residential (current) use of insulin - Gout, unspecified [...] disease, or unspecified chronic kidney disease - rodent exterminator (current) use of systemic steroids - Acute embolism and thrombosis of deep veins of right upper extremity - Gout, unspecified - residential (current) use of inhaled steroids - Acute embolism and thrombosis of deep veins of right upper extremity - Other intermediate (current) drug therapy - residential (current) use of systemic steroids - Diaphragmatic hernia without obstruction or gangrene - Hemorrhagic disorder due to extrinsic circulating anticoagulants - Cachexia - Chronic pain syndrome - Chronic kidney disease, stage 3 unspecified - Chronic systolic (congestive) heart failure - Adverse effect of anticoagulants, initial encounter - Other intermediate (current) drug therapy - Atherosclerotic heart disease of [place] coronary artery without angina pectoris - Diverticulosis [...] kidney disease - Atherosclerotic heart disease of [place] coronary artery without angina pectoris - Allergy [...] disease, or unspecified chronic kidney disease - residential (current) use of insulin - Allergy status [...] lower limb - Atherosclerotic heart disease of [place] coronary artery without angina pectoris - rodent exterminator (current) use of oral hypoglycemic drugs - [...] - Personal history of nicotine dependence - residential (current) use of systemic steroids - Allergy status to other antibiotic agents - Weakness - Gout, unspecified - Pulmonary hypertension, unspecified - Other disorders of bilirubin metabolism - Paroxysmal atrial fibrillation - residential (current) use of anticoagulants - Type 2 diabetes mellitus with other skin complications - Chronic obstructive pulmonary disease, unspecified 10/09/2020 10:05 [facility] TYPE: Medical Surgical COMPLAINT: - TC DIABETIC WOUND DIAGNOSES: - Acute on chronic systolic (congestive) heart failure - residential (current) use of systemic steroids - Pulmonary hypertension, unspecified - rodent exterminator (current) use of inhaled steroids - Type 2 diabetes mellitus with foot ulcer - rodent exterminator (current) use of anticoagulants - residential (current) use of oral hypoglycemic drugs - Allergy status to other antibiotic agents - residential (current) use of oral hypoglycemic drugs - Allergy status to other antibiotic agents - Other rodent exterminator (current) drug therapy - Paroxysmal atrial fibrillation - Acute kidney failure, unspecified - rodent exterminator (current) use of anticoagulants - Non-pressure chronic ulcer of left heel and midfoot with fat layer exposed - Non-pressure chronic ulcer of left heel and midfoot with fat layer exposed - Atherosclerotic heart disease of [place] coronary artery without angina pectoris - Acute [...] kidney disease - Atherosclerotic heart disease of [place] coronary artery without angina pectoris - Chronic obstructive pulmonary disease, unspecified - Allergy status to other drugs, medicaments and biological substances - rodent exterminator (current) use of systemic steroids - Allergy status to other drugs, medicaments and biological substances - Acute embolism and thrombosis of deep veins of right upper extremity - Acute on chronic systolic (congestive) heart failure - Gout, unspecified - Chronic kidney disease, unspecified - Other rodent exterminator (current) drug therapy - Chronic kidney disease, unspecified - rodent exterminator (current) use of inhaled steroids 10/04/2020 14:[address] [facility] [place] TYPE: Medical Surgical COMPLAINT: - DIABETIC WOUND DIAGNOSES: - Paroxysmal atrial fibrillation - rodent exterminator (current) use of systemic steroids - Cellulitis of left lower limb - Acute pyelonephritis - Type 2 diabetes mellitus with diabetic peripheral angiopathy without gangrene - Cellulitis of right lower limb - Adverse effect of cephalosporins and other beta-lactam antibiotics, initial encounter - Other intermediate (current) drug therapy - Allergy status to other antibiotic agents - Chronic obstructive pulmonary disease, unspecified - Personal history of nicotine dependence - Chronic kidney disease, unspecified - Atherosclerotic heart disease of [place] coronary artery without angina pectoris - Acute kidney failure, unspecified - Type 2 diabetes mellitus with diabetic chronic kidney disease - Allergy status to other drugs, medicaments and biological substances - Unspecified open wound, left foot, initial encounter 09/16/2020 03:17 [facility] TYPE: Medical Surgical COMPLAINT: - GOUTY [...] disease, unspecified 13. Atherosclerotic heart disease of [place] coronary artery without angina pectoris 14. Tachycardia, [...] of both mitral and tricuspid valves - residential (current) use of oral hypoglycemic drugs - Chronic kidney disease, unspecified - Adverse effect of glucocorticoids and synthetic analogues, initial encounter - Type 2 diabetes mellitus with hyperglycemia - residential (current) use of systemic steroids - Type 2 diabetes mellitus with diabetic chronic kidney disease - Acute respiratory failure with hypoxia - residential (current) use of inhaled steroids - Atherosclerotic heart disease of [place] coronary artery without angina pectoris - Type 2 diabetes mellitus with hypoglycemia without coma - Acute kidney failure, unspecified - Myocardial infarction type 2 - Chronic obstructive pulmonary disease with (acute) exacerbation - residential (current) use of anticoagulants - Cardiomyopathy, unspecified - Other intermediate (current) drug therapy - Unspecified place in hospital as the place of occurrence of the external cause - rodent exterminator (current) use of antithrombotics/antiplatelets - Adverse effect of insulin and oral hypoglycemic [antidiabetic] drugs, initial encounter [email or web address]
--- NOTE | 2021-05-30 11:01 | NUR ---
Report received from Shantel in ED. Awaiting patient arrival to [facility]
--- NOTE | 2021-05-30 11:10 | NUR ---
Pt arrives to medsurg unit via stretcher, labored breathing noted, pt on 3L NC and currently 96%. VSS, heart irregular, placed on tele via ED bridge orders. Pt has hx of AFIB. Admission and history, assessment complete. Lungs clear, diminished. Pt mainly c/o L salas blister/ulcer, which his states has been present for over 1 week and "was a water blister but then burst weepy drainage". Pt reports being hot, painful. Measured wound and pictures placed in chart. Redness outlined on salas, around heel. HOB elevated. Pt A+O. Harriett at bedside, attentive to patient and engaged in care. Pt uses urinal 50ml void. Wound care consult ordered. Call light in reach
[2021-05-30] MEDS ORDERED: BISOPROLOL FUMAR5 MG PO (12:28)
[2021-05-30] MEDS ORDERED: POTASSIUM CHLO10 ME1 PO (12:37)
--- NOTE | 2021-05-30 13:50 | NUR ---
Scheduled medications administered. Pt HOB elevated, sandwich and water provided. Pt states no pain, "only problem right now is I can't breathe well", IV lasix administered, 3L NC O2 in place and pt spo2 95%. Tele DC'd per order. luz at bedside. All questions answered.
--- NOTE | 2021-05-30 14:54 | NUR ---
Pt urinal emptied, kleenex provided, no further needs.
--- NOTE | 2021-05-30 15:50 | NUR ---
refrigeration unit repairer in room to consult. New wound care orders received for wound cleanser, medihoney, and large allevyn. Pt tolerates dressing fair. Harriett at bedside and attentive to patient
--- NOTE | 2021-05-30 18:11 | NUR ---
Dr Jackson notified about patients BP.
--- NOTE | 2021-05-30 18:51 | NUR ---
PATIENT IN BED WATCHING TV, IN ROOM. VITALS AND I&O'S CHARTED. BED ALARM ON. CALL LIGHT IN REACH. NO FURTHER NEEDS AT THIS TIME.
--- NOTE | 2021-05-30 19:35 | NUR ---
TOOK OVER CARE FROM ALCALA. ASSISTED PATIENT FROM BEDSIDE COMMODE BACK TO BED. USING WALKER. PATIENT HAD A SMALL SOFT BOWEL MOVEMENT AND VOIDED WELL. NO OTHER NEEDS AT THE TIME. CALL LIGHT WITHIN REACH.
--- NOTE | 2021-05-30 19:45 | NUR ---
REPORT RECEIVED FROM DADA CASTANON. pt RESTING IN BED. RT IN ROOM FOR NEB TREATMENT. CALL LIGHT IN REACH. pt HAS NO REQUESTS AT THIS TIME.
--- NOTE | 2021-05-30 20:02 | EKG ---
[facility] [address] [facility] [place], [place] [address] Signed Atrial fibrillation with rapid ventricular response Possible Right ventricular hypertrophy Nonspecific ST and T wave abnormality Abnormal ECG When compared with ECG of 23-FEB-2021 17:55, Nonspecific T wave abnormality now evident in Anterior leads QT has lengthened Confirmed by FAY MCINTYRE DO ([id number]) on 05/30/2021 8:02:38 PM Electronically Signed By: FAY MCINTYRE DO 05/30/212001 PATIENT NAME: ONEIDA YANEZ Electrocardiogram DATE OF : 35 PHYSICIAN: FAY MCINTYRE DO REPORT #: [id number] REPORT IS CONFIDENTIAL AND NOT TO BE RELEASED WITHOUT AUTHORIZATION
--- NOTE | 2021-05-30 21:32 | NUR ---
pt AWAKE RESTING IN BED, DENIES PAIN. ASSISTED TO REPOSITION 2PA TO RIGHT SIDE, PILLOW UNDER LEFT HIP. LEGS ELEVATED ON PILLOWS, 2+ EDEMA BLE. REDNESS LLE, ALLEVYN INTACT. ASSESSMENT COMPLETE. VSS. ALLOTTED WATER PROVIDED. SPO2 WNL W 3L OXYGEN BY NC IN PLACE. CALL LIGHT IN REACH.
--- NOTE | 2021-05-30 22:00 | NUR ---
RT REPORTED PT NEEDED THE BSC. THIS RN ASSISTED PT UP TO BSC, VOIDED SMALL AMOUNT, HAD A VERY SMALL SOFT STOOL, BACK TO BED, POSITIONED WITH PILLOW UNDER LEFT HIP. CALL LIGHT WITHIN REACH. NO OTHER NEEDS.
--- NOTE | 2021-05-31 00:38 | NUR ---
CHECKED ON pt. RESTING IN BED WITH EYES CLOSED. 3L OXYGEN BY NC IN PLACE. BREATHING UNLABORED.
--- NOTE | 2021-05-31 01:39 | NUR ---
CALL LIGHT ANSWERED, pt ASSISTED TO USE URINAL. VS COMPLETE, STABLE. SPO2 WNL WITH 3L OXYGEN BY NC IN PLACE. ASSESSMENT COMPLETE. pt REPOSITIONED WITH TWO RN ASSIST, FLOATING WITH PILLOWS UNDER EACH HIP. LEGS ELEVATED. 1+ EDEMA BLE. ALLEVYN IN PLACE LLE. pt RATES PAIN 4/10 IN LLE. PRN TYLENOL ADMINISTERED. CALL LIGHT IN REACH.
--- NOTE | 2021-05-31 03:05 | NUR ---
PATIENT CALLED ON THE CALL LIGHT AND WAS CONFUSED ABOUT WHERE HE WAS. THIS RN WENT IN THE ROOM AND PATIENT WAS SITTING ON THE SIDE OF THE BED CONFUSED TO WHERE HE WAS. REORIENTED PATTIENT TO BEING IN THE HOSPITAL AND PATIENT VERBALIZED UNDERSTANDING. JESS TERRY CAME IN AND ASSISTED THIS RN IN PULLING THE PATIENT UP IN BED. PATIENT'S PRIMARY RN MICHELA NOW IN THE ROOM.
--- NOTE | 2021-05-31 03:52 | NUR ---
CALL LIGHT ANSWERED BY DADA WILL. pt CONFUSED, ATTEMPTING TO GET OUT OF BED. THIS RN IN ROOM. pt CALM AT THIS TIME, STATES "I JUST DIDN'T KNOW WHERE I WAS". DENIES TOILETING NEEDS. REQUESTS RN CALL . ORIENTED TO TIME OF DAY, pt STATES "I STILL THINK SHE NEEDS TO KNOW. THIS IS WORSE THAN LAST TIME." PHONE CALL TO , MESSAGE LEFT TO RETURN CALL. IV SITE REDRESSED BLEEDING NOTED UNDER OP SITE. IV SITE IN RIGHT FOREARM FLUSHES WNL, BRISK BLOOD RETURN. CALLS BACK AND IS TRANSFERRED INTO ROOM TO SPEAK WITH pt BY DADA ZACARIAS. BED ALARM SET FOR pt SAFETY.
--- NOTE | 2021-05-31 05:50 | NUR ---
DADA GARCIA IN ROOM. VSS. STANDING WEIGHT 55.6 KG, PREVIOUS WEIGHT NOTED BED WEIGHT. pt RESTING IN BED. BED ALARM ON.
--- NOTE | 2021-05-31 06:24 | NUR ---
CHECKED ON pt RESTING IN BED WITH EYES CLOSED, BREATHING UNLABORED. 3L OXYGEN BY NC IN PLACE.
--- NOTE | 2021-05-31 06:25 | NUR ---
pt RESTED OFF AND ON THIS SHIFT. URGENCY TO VOID. SMALL BMS X 2 IN BSC. 3L OXYGEN BY NC IN PLACE THROUGHOUT SHIFT. PRN TYLENOL X [address] FOR PAIN CONTROL[address] ALLEVYN IN PLACE ON LLE. 1+ EDEMA BLE, LEGS ELEVATED THROUGHOUT SHIFT. USING CALL LIGHT APPROPRIATELY. pt CONFUSED UPON WAKENING AROUND 0300, REDIRECTABLE AND REORIENTS EASILY. DAILY WEIGHT 55.6 KG STANDING WEIGHT.
--- NOTE | 2021-05-31 07:05 | NUR ---
Report received from Lili GARLAND. Pt resting in bed with eyes closed, respirations even and unlabored. Saline locked. on 3L NC O2. No needs identified at this time. Will continue plan of care.
--- NOTE | 2021-05-31 08:48 | NUR ---
It was my pleasure to meet with & Mrs Miranda today and inquire regarding Mr. Miranda's care while here in the hospital. Both Mr. & Mrs. Miranda expressed appreciation for the care that he has received while here in the hospital. They feel that he has been well taken care of, and they feel that the care plan has been explained to them. Mrs. Miranda did explain that Mr. Miranda had anxiety last night and the nurses did call her at home to help with calming him down. She was appreciative of the call and the concern that the staff members showed for her . Mrs. Miranda asked for more water for Mr. Miranda while I was in the room. His water cup was empty. I did explain that we could get more fluids for him, but also re-educated regarding his 1800ml fluid restriction. Both agreed that they understood that he was on a fluid restriction. I also inquired about home care, Mrs. Miranda said that she has changed how she has done many things, and she feels at this time that she is still able to take Mr. Miranda home and care for him at home. She also states, and he agrees, that this is what they both want at this time. No other concerns were expressed during this visit.
--- NOTE | 2021-05-31 09:30 | NUR ---
In room to administer meds and assessment complete. Vitals taken, 86/55, Dr Jackson notified and lasix and bisoprolol held. Wound care complete, moderate amount yellow and serous drainage. Wound cleanser used and medihoney applied with new allevyn, feet elevated on pillows. Pt states wound is "uncomfortable" but states tolerable. Water refilled, warm blankets provided.
--- NOTE | 2021-05-31 09:30 | NUR ---
Spoke with Harriett and Nestor. Harriett states they don't want placement to a SNF. We laughed about this as I always ask this questions. Per Harriett, as soon as pt's fluid has decreased, they will return to their home. Pt uses a walker at home. They deny need for further DME.
--- NOTE | 2021-05-31 11:35 | NUR ---
Wound weeping fluid through bandage placed. Wound cleaned, new large allevyn placed. OT working with patient
--- NOTE | 2021-05-31 12:06 | NUR ---
PATIENT'S LUNCH TRAY JUST ARRIVED. KERWIN IS VISITING. PATIENT STATES HE IS DOING OK, FEELS HIS APPETITE IS FAIRLY NORMAL FOR HIM. HE IS ON A LOW-SODIUM DIET AT THIS TIME, SO HE COULD NOT GET MILK WITH HIS LUNCH. HE LIKES WHOLE MILK AT BREAKFAST. KERWIN STATES HE EATS A GOOD BREAKFAST AT HOME, OATMEAL, SOMETIMES TOAST, MILK AND A LITTLE FRUIT. HE DOESN'T ALWAYS EAT LUNCH BECAUSE HE IS FULL FROM BREAKFAST BUT HE DOES EAT DINNER. SOMETIMES HE SNACKS ON A 1/2 PB SANDWICH AT NIGHT. THEY HAVE ENSURE BUT HE DOES NOT DRINK IT REGULARLY. IT IS NOT HIS FAVORITE THING TO DRINK BUT HE IS WILLING TO DRINK 1/2 OF IT FOR LUNCH AT HOME AND THE OTHER HALF LATER. I REMINDED THE PATIENT THAT HE NEEDS ENOUGH CALORIES TO KEEP HIS BODY GOING, SO EITHER EAT MORE FOOD OR DRINK MORE CALORIES WITHIN THE FLUID RESTRICTION ALLOTMENT. WILL CONTINUE TO MONITOR.
--- NOTE | 2021-05-31 12:33 | NUR ---
PT ALERT, ORIENTED AND SUPPORTED BY KERWIN AT BS. PT AND KERWIN ALWAYS PLEASANT, THANKFUL FOR CARE RECEIVED BY STAFF. PT STATES HE FEELS BETTER SINCE ADMISSION. GAVE ENCOURAGEMENT, O2 NC IN USE. PT REQUESTS PRAYER AND GAVE A G.POST. WILL FOLLOW NEEDED
--- NOTE | 2021-05-31 13:16 | NUR ---
PT RESTING IN BED WITH EYES CLOSED. AT BEDSIDE. PT ENCOURAGED TO TRY AND VOID, BUT PT HAS NO URGES. DADA CASTANON NOTIFIED. NO FURTHER NEEDS AT THIS TIME
--- NOTE | 2021-05-31 13:37 | NUR ---
Pt BP 78/44. Dr Jackson notified and orders for 1L LR bolus received. Verified with pharmacy
--- NOTE | 2021-05-31 14:27 | NUR ---
Urine sample collected and sent to lab
--- NOTE | 2021-05-31 16:02 | NUR ---
Certified Heart Failure Nurse Notes: Diagnosis: Decompensated diastolic heart failure PCP:Juli Admit Wt.: 58.9kg Admit BNP: 1010 Social support system:Spouse Harriett is at bedside. Reports patient can move from bathroom to chair or bed without assistance at home. She does manage medication and meals. She denies need for further support at this time. Weight monitoring: Scale present in home. Identifies how to weigh daily. Encourage to notify PCP of any weight gain of 3 lb or more. Symptom management: Addressed monitoring and reporting changes in weight or symptoms utilizing Zones form Diet: Eats small portions at home. Has had a visit by ultrasound tech during this stay. Harriett thinks packaged foods such as rice mix may have had a lot of salt. discussed label reading for sodium mg and serving size. Again emphasize that patient doesn't eat large portions and that patient needs to eat. Discussed methods of keeping mouth moist while on fluid restriction. Usual physical activity: Uses light hand weights while sitting at home. Has been instructed to pump ankles. She reports patient sleeps a lot at home. Medications managed by spouse. She states he currently only take five medications and that they understand them. Allergic to NSAIDs Advanced directive: Not discussed at this initial visit Recommendations prior to discharge: Document ambulation oxygen saturations prior to discharge Absence of orthostatic hypotension. Discharge BNP less than admit Follow-up plans: Harriett agrees to receive a follow up call from this service. Patient does not currently qualify for cardiac rehabilitation but would be welcome for complimentary outpatient heart failure education. Teaching materials given today: [facility] Heart Failure bundle folder-[facility] My Action Plan Living Well with Heart Failure book, Daily weight and symptom monitoring log, Zones magnet, [facility] contact information
--- NOTE | 2021-05-31 16:28 | NUR ---
PT REPOSITIONED IN BED AND BOOSTED. PT HAS CONCERNS ABOUT PAIN ON HIS COXYX, DADA CASTANON NOTIFIED.
--- NOTE | 2021-05-31 16:45 | NUR ---
Pt's skin cleaned and skin protectant applied. Allevyn applied to coccyx, pillow provided under R hip. Small "pencil eraser" sized shear noted to R inner gluteal cleft. Pt reports no pain at this time. Repositioned in bed.
--- NOTE | 2021-05-31 17:56 | NUR ---
PT AWAKE IN BED WATCHING TV WITH AT BEDSIDE. CALL LIGHT WITHIN REACH. NO FURTHER NEEDS AT THIS TIME.
--- NOTE | 2021-05-31 18:05 | NUR ---
Dr Smith notified of patient's low BP. Pt has had 900ml of IV bolus at this time.
--- NOTE | 2021-05-31 19:25 | NUR ---
REPORT RECEIVED FROM DADA CASTANON. pt RESTING IN BED AWAKE. IVF BOLUS COMPLETE. IV SL WNL. URINAL EMPTIED, 50 MLS URINE. DENIES NEEDS. 3L OXYGEN BY NC IN PLACE. CALL LIGHT IN REACH.
--- NOTE | 2021-05-31 20:13 | NUR ---
pt AWAKE RESTING IN BED. VSS. 3L OXYGEN BY NC IN PLACE. pt DENIES PAIN. ASSESSMENT COMPLETE. ALLEVYN CDI LLE. 1+ PITTING EDEMA BLE. PRN SLEEP MEDICATION ADMINISTERED. REPOSITIONED IN BED WITH TWO PERSON ASSIST, PILLOW UNDER RIGHT HIP. LEGS ELEVATED ON PILLOWS. ATTEMPT TO VOID IN URINAL. NO VOID AT THIS TIME. CALL LIGHT IN REACH.
--- NOTE | 2021-05-31 22:15 | NUR ---
CALL LIGHT ANSWERED. ASSISTED USING THE URINAL. PATIENT VOIDED 50ML. NO OTHER NEEDS AT THIS TIME.
--- NOTE | 2021-05-31 23:40 | NUR ---
CHECKED ON pt. RESTING IN BED WITH EYES CLOSED. 3L OXYGEN BY NC IN PLACE. RR 20, BREATHING UNLABORED.
--- NOTE | 2021-06-01 01:36 | NUR ---
CALL LIGHT ANSWERED. ASSISTED TO VOID IN URINAL, 60 MLS. REPOSITIONED TO FLOATING WITH PILLOWS UNDER BOTH HIPS. LEGS ELEVATED ON PILLOWS. ASSESSMENT COMLETE. EDEMA IMPROVED BLE 1+ EDEMA. ALLEVYN INTACT. pt DENIES PAIN. DRINK OF WATER PROVIDED. CALL LIGHT IN REACH.
--- NOTE | 2021-06-01 03:50 | NUR ---
CALL LIGHT ANSWERED. ASSISTED TO USE URINAL FOR 50 ML VOID IN BED. 3L OXYGEN BY NC IN PLACE. REPOSITIONED PILLOWS UNDER HIPS. LEGS ELEVATED. CALL LIGHT IN REACH.
--- NOTE | 2021-06-01 05:51 | NUR ---
CALL LIGHT ANSWERED, ASSISTED pt TO USE URINAL IN BED, CHANGES MIND THAT HE DOESN'T HAVE TO GO NOW. 1PA TO STANDING SCALE, DAILY WEIGHT 56.8 KG. VSS. MOTOR VEHICLE SALESPERSON IN ROOM. CALL LIGHT IN REACH. pt SOB AFTER STANDING TO SCALE, REQUESTING BREATHING TREATMENT. RT NELSY IN ROOM.
--- NOTE | 2021-06-01 07:06 | NUR ---
ASSISTED PATIENT USE THE URINAL. PATIENT VOIDED 75ML. PATIENT STATED "HAVE DIFFICULTY OF BREATHING. I GUESS I NEED BREATHING TREATMENT". PRIMARY RN NOTIFIED AND THIS SCHOOL HEALTH ASSISTANT CALLED RT ALEXANDRE STATED "I WILL BE THERE SOON I CAN".
--- NOTE | 2021-06-01 07:30 | NUR ---
Shift report received from DADA Pearson, pt resting safely in bed w/ call light in reach, pt denies any needs at this time.
--- NOTE | 2021-06-01 09:00 | NUR ---
PATIENT REPOSITIONED TO SIDE OF BED FOR BREAKFAST. IN ROOM. CALL LIGHT IN EASY REACH
--- NOTE | 2021-06-01 09:00 | NUR ---
Pt sitting up on side of bed eating breakfast w/ call light in reach. Morning assesment complete and scheduled meds given per rpovider order. VSS on 3L via NC. Pt denies any further needs at this time, at bedside
--- NOTE | 2021-06-01 09:30 | NUR ---
Spoke with Harriett and Nestor briefly as she is getting ready to go for an xray. Pt required assist with his walker to transfer to .
--- NOTE | 2021-06-01 10:05 | NUR ---
Patient via BSC 1 PA FWW. Patient via back to bed and waited till [facility] came to puck hime up.
--- NOTE | 2021-06-01 11:00 | NUR ---
Pt repositioned higher in bed, wound care completed on LLE, per provider order, legs elevated on pillows. Pt denies any other needs at this time
--- NOTE | 2021-06-01 13:13 | NUR ---
PT ALERT, ORIENTED AND SITTING ON SIDE OF BED VISITING WITH KERWIN. BOTH ALWAYS A PLEASURE TO CONNECT WITH. PT DIDN'T GET MUCH SLEEP LAST NIGHT. HOPES TO DC TODAY. BOTH IN GOOD HUMOR, THE CONNECTION BETWEEN THE TWO VERY APPARENT GAVE BLESSING AND WILL FOLLOW NEEDED
--- NOTE | 2021-06-01 13:30 | NUR ---
Patient's BP was 129/111 on left arm. 116 MAP. 94 Pulse. 97.5 Temp. Resp. 20. Patient's BP on right arm was 129/110. 114 MAP. 151 Pulse.
--- NOTE | 2021-06-01 14:00 | NUR ---
Pt resting in bed safely w/ call light in reach and eyes closed, RR even and unlabored on 3L via NC.
--- NOTE | 2021-06-01 16:45 | NUR ---
Patient's pulse was 111. Call light is in reach and is in room.
--- NOTE | 2021-06-01 18:00 | NUR ---
Pt resting in bed safely w/ call light in reach. Pt denies any needs at this time.
--- NOTE | 2021-06-01 18:43 | NUR ---
Patient is resting. Call light is in reach.
--- NOTE | 2021-06-01 19:25 | NUR ---
BEDSIDE REPORT FROM SCOOBY RN, PT DENIES NEEDS, CALL LIGHT IN REACH, IV SL X2, 3 LNC CHRONIC, ROUGH COUGH - UNABLE TO CLEAR - CHRONIC.
--- NOTE | 2021-06-01 21:32 | NUR ---
PT CALLED, USED URINAL FOR SMALL AMOUNT URINE. COVERED WITH SHEET PER PT REQUEST. ALL PERSONAL SUPPLIES WITHIN REACH.
--- NOTE | 2021-06-02 00:59 | NUR ---
pt up to bsc with fww and assist. cough noted, plem pink tinged, left lower leg area weeping.
--- NOTE | 2021-06-02 03:29 | NUR ---
pt used urinal void 50 ml reports difficulty with voiding. denies needs. continues to have cough with course lung sounds aduible to RN. dimmed lights for pt to sleep.
--- NOTE | 2021-06-02 09:15 | NUR ---
Spoke with Janel. Nestor complains of feeling more sob today. They cont. to plan to dc to home when cleared medically.
--- NOTE | 2021-06-02 09:35 | NUR ---
Patient is sitting in bed upright and his is in the room in the chair. Call light is in reach.
--- NOTE | 2021-06-02 09:53 | NUR ---
Lying in bed, alert and oriented. Assessment completed. States pain in left lef, dressing intact at this time. PRN medication along with AM medications administered, takes without difficulty. States he isn't feeling good, but also isn't feeling bad this AM. Spouse remains at bedside. Denies other needs, PT in at this time work with patient.
--- NOTE | 2021-06-02 11:59 | NUR ---
Dressing to left leg completed. Patient tolerated with minimal signs of pain, did flinch when wound touched. Previous dressing saturated with serous drainage. See wound assessment. Patient requesting heat to be applied for pain. Small heat pack applied, instructed to notify staff if heat is ineffective and staff will apply cool pack. Verbalizes understanding.
--- NOTE | 2021-06-02 12:39 | NUR ---
PT IN A COMFORTABLE SPOT FOR HIM-SITTING ON THE SIDE OF THE BED VISITING WITH HIS KERWIN. THEIR LOVE AND THE CONNECTION THEY SHARE IS INSPIRING. PT IS NOT HAVING A GOOD DAY. BREATHING IS MORE LABORED, FEELS ACHY BUT NEVER IS ONE TO COMPLAIN. BOTH ENGAGED IN CONVERSATION. PT IS STILL ABLE TO KEEP HIS SENSE OF HUMOR. GAVE BLESSING, BOTH WILL SHARE A MEAL TOGETHER. WILL FOLLOW
--- NOTE | 2021-06-02 13:11 | NUR ---
Patient is resting with call light in reach.
--- NOTE | 2021-06-02 13:26 | NUR ---
Patient's left arm BP was 97/57. 64 Map. 78 pulse. RIght arm BP was 103/47. 61 Map. 96 pulse. Call light is in reach.
--- NOTE | 2021-06-02 14:57 | NUR ---
Notified Dr. Smith of low BP's and low urine output. No new orders.
--- NOTE | 2021-06-02 17:35 | NUR ---
Patient has not recieved dinner yet. Patient is resting in bed. Patient BP 97/57. Map 63. Pulse 92. Taken on left arm.
--- NOTE | 2021-06-02 18:04 | NUR ---
Denies needs at this time. Call light in reach. Spouse at bedside.
--- NOTE | 2021-06-02 19:00 | NUR ---
SHIFT REPORT RECEIVED FROM WENDI GARLAND. PT RESTING IN BED, RR EVEN, UNLABORED. CALL LIGHT IN REACH. NC @ 3L.
--- NOTE | 2021-06-02 20:30 | NUR ---
ASSESSMENT, VS AND I&O COMPLETED, GCS 15, A&O X4. NUMBNESS AND TINGLING X4 EXTREMITIES, PULSES AND MOTOR INTACT. LUNGS CLEAR IN UPPER LOBES, DIM IN LOWER LOBES. NC @ 3L. SOB WITH ACTIVITY. BLE EDEMA 1+, LLE DRESSING CDI. COCCYX DRESSING CDI. IVs WNL, FLUSHED WELL. PT UP TO BSC AND BACK TO BED, 1 PA. URINE IS MILKY. PT REPORTS 4/10 ACHE IN HANDS, PRN PAIN MED PROVIDED. PRN SLEEP MED PROVIDED. SCHEDULED MED PROVIDED. RT IN ROOM FOR TX.
--- NOTE | 2021-06-02 20:52 | NUR ---
PT CALLED D/T NEB TRT BEING COMPLETE. REMOVED NEB MASK, JOSELYN WIGGINS ENTERED THE ROOM AT THIS TIME.
--- NOTE | 2021-06-02 23:00 | NUR ---
PT RESTING IN BED. RR EVEN, UNLABORED. NC @ 3L. CALL LIGHT IN REACH.
--- NOTE | 2021-06-03 00:50 | NUR ---
PT CALLED, ASSISTED HIM TO BSC AND BACK TO BED. PT DENIES FURTHER NEEDS AT THIS TIME. CALL LIGHT IS CLOSE AND BED ALARM IS ON.
--- NOTE | 2021-06-03 02:01 | NUR ---
PT RESTING IN BED. RR EVEN, UNLABORED. NC @ 3L. CALL LIGHT IN REACH.
--- NOTE | 2021-06-03 03:30 | NUR ---
ASSESSMENT, VS AND I&O COMPLETED. NC @ 3L. LUNGS CLEAR EXCEPT DIM IN RLL. LLE DRESSING CDI. 1+ BLE EDEMA UNCHANGED. IVs WNL. DW COMPLETED. PT USED URINAL. NO OTHER NEEDS. CALL LIGHT IN REACH.
--- NOTE | 2021-06-03 05:30 | NUR ---
PT RESTING IN BED. RR EVEN, UNLABORED. NC @ 3L. CALL LIGHT IN REACH.
--- NOTE | 2021-06-03 07:05 | NUR ---
Report from Seble Pitt RN. Assist patient to use urinal, continent of 75 mL urine. Denies other needs at this time. Remains on O2 per NC. Call light in reach, bed rails up X2.
--- NOTE | 2021-06-03 09:46 | NUR ---
Assist to bedside commode. Returns to bed. Assessment completed. Allevyn to coccyx remains intact. AM medications administered, BP low this AM, Dr. Smith notified, no new orders. Call light in reach, bed rails up X2, spouse at bedside. Patient states he would like to rest for a little while this AM.
--- NOTE | 2021-06-03 10:37 | NUR ---
Temporal temp 96.3. Patient is resting and said a moment ago that he is really tired from walking to the bathroom earlier with PT. Call light is in reach.
--- NOTE | 2021-06-03 11:39 | NUR ---
PT SOUND ASLEEP, KERWIN AT BS. P.T. HAD BEEN IN EARLIER AND PT WAS EXHAUSTED. WILL CONTINUE TO FOLLOW
--- NOTE | 2021-06-03 12:35 | NUR ---
Previous dressing removed, wound assessed by DADA Oleary/Charge nurse/ Wound nurse. Will reapply new dressing when orders recieved.
--- NOTE | 2021-06-03 13:00 | NUR ---
IN TO ASSESS WOUND TO LEFT LOWER LEG. DRESSING REMOVED. MODERATE AMOUNT OF DRAINAGE PRESENT ON DRESSING. SEROSANG WITH SOME SLOUGHING TISSUE PRESEENT. NO ODOR PRESENT. REDNESS IN DECREASING.BASED ON OUTLINE PICTURES IN CHART REVIEWED. WOUND IS IMPROVIING, EDGES ARE TAPERING. WOUND BED IS 95% GRANULATING TISSUE 5% SLOUGH. WILL CHANGE DRESSING FREQUENCY TO EVERY 3-5 DAYS OR PRN FOR DRESSING SATURATIONS OR LEAKING. PRIMARY NURSE NOTIFIED. ORDER CHANGED. DRESSING TYPE KEPT THE SAME.
--- NOTE | 2021-06-03 13:12 | NUR ---
Wound to left leg cleansed with wound cleanser, medi-honey applied with allevyn. Patient and spouse notified of change in frequency of dressing change, verbalize understanding.
--- NOTE | 2021-06-03 14:40 | NUR ---
Assessment completed. No changes from AM assessment. Remains on O2 per NC, Dressing to coccyx and left leg intact. Continue to reposition of coccyx using pillows. Spouse remains at bedside. Call light in reach, bed rails up X2. Denies other needs at this time.
--- NOTE | 2021-06-03 15:05 | NUR ---
96.3 Temporal temp. Patient is in bed and said he's feeling a little cold. A warm blanket is being fetched. Call light is in reach. is in room.
--- NOTE | 2021-06-03 17:36 | NUR ---
Denies needs at this time. Call light in reach, bed rails up X2.
--- NOTE | 2021-06-03 18:16 | NUR ---
Patient is resting with call light in reach. Vitals, I&Os are complete. BP 97/58. Map 66. 97.2 Temp.
--- NOTE | 2021-06-03 19:00 | NUR ---
SHIFT REPORT RECEIVED FROM WENDI GARLAND. PT ASLEEP IN BED. NC @ 3L. CALL LIGHT IN REACH.
--- NOTE | 2021-06-03 20:50 | NUR ---
IN TO GET VITALS WITH RN, I&Os DONE, HOT COCCA FOR PT PROVIDED, NO FURTHRE NEEDS AT THIS TIME
--- NOTE | 2021-06-03 21:17 | NUR ---
ASSESSMENT COMPLETED. GCS 15, A&O X4. LUNGS CLEAR IN UPPER LOBES AND DIM IN LOWER LOBES. NC @ 3L. PT HAS SOB WITH ACTIVITY. COCCYX AREA COVERED WITH ALLEVYN. LLE WOUND COVERED, CDI. L FA IV REMOVED DUE TO ROTATION. R FA IV CDI, FLUSHED WELL. ABD SOFT, NONTENDER, BOWEL TONES ACTIVE. NUMBNESS AND TINGING X4 EXTREMITIES, PULSE AND MOTOR INTACT. PT REPORTS 4/10 GENERALIZED PAIN, PRN PAIN MED PROVIDED. PRN SLEEP MED PROVIDED. PT REPOSITIONED. PT HAS THICK YELLOW SCANT SPUTUM. BLE EDEMA 1+. NO OTHER NEEDS. CALL LIGHT IN REACH.
--- NOTE | 2021-06-04 | NUR ---
PT RESTING IN BED. RR EVEN, UNLABORED. NC @ 3L. CALL LIGHT IN REACH.
--- NOTE | 2021-06-04 02:00 | NUR ---
PT RESTING IN BED. RR EVEN, UNLABORED. CALL LIGHT IN REACH.
--- NOTE | 2021-06-04 04:13 | NUR ---
ASSESSMENT COMPLETED. PT ASKS FOR A BREATHING TREATMENT, RT NOTIFIED. GCS 15, A&O X4. IV WNL. PT REPOSITIONED. NO OTHER NEEDS. CALL LIGHT IN REACH.
--- NOTE | 2021-06-04 05:30 | NUR ---
IN TO ASSIST RN WITH BOOSTING PT, PILLOWS UNDER RIGHT SIDE FOR COMFORT, ASSISTED WTH URINAL AND NEW ATTENDS, NO FURTHER NEEDS
--- NOTE | 2021-06-04 05:30 | NUR ---
VS AND I&O COMPLETED. PT STATES HE HAS 4/5/10 BUTTOCKS PAIN, PRN PAIN MED PROVIDED AND PT REPOSITIONED. NC @ 3L. CLEAR SODA PROVIDED. NO OTHER NEEDS. CALL LIGHT IN REACH.
--- NOTE | 2021-06-04 07:30 | NUR ---
Shift report received from DADA Segura, pt resting in bed w/ call light in reach and eyes closed, RR even and unlabored on 3L via NC.
--- NOTE | 2021-06-04 08:58 | NUR ---
patient in the bed resting. this SILK BRUSHER got the RN wendy to help with a turn and reposition. the patient had eaten half of his breakfast. was able to help with the turn as well.
--- NOTE | 2021-06-04 09:30 | NUR ---
Pt sitting up in bed w/ call light in reach, watching TV, at bedside. Morning assesment complete and scheduled meds given per provider orders. Pt denies any further needs at this time
--- NOTE | 2021-06-04 12:18 | NUR ---
Pt sitting up in bed safeyl w/ call light in reach, eating lunch, at bedside, pt denies any needs at this time
--- NOTE | 2021-06-04 14:00 | NUR ---
Pt resting in bed safely w/ call light in reach and eyes closed, RR even and unlabored on 3L via NC. at bedside, no needs at this time
--- NOTE | 2021-06-04 16:00 | NUR ---
Pt resting in bed safely w/ call light in reach watching TV, at bed side, pt given a 7-up upon request.
--- NOTE | 2021-06-04 18:27 | NUR ---
BEFORE HIS LEFT FOR THE NIGHT SHE BRUSHED HIS DENTURES.
--- NOTE | 2021-06-04 19:19 | NUR ---
SHIFT REPORT RECEIVED FROM SCOOBY GARLAND. PT RESTING IN BED. NC @ 3. CALL LIGHT IN REACH.
--- NOTE | 2021-06-04 20:30 | NUR ---
ASSESSMENT, VS AND I&O COMPLETED. GCS 15, A&O X4. LUNGS CLEAR IN UPPER LOBES AND DIM IN LOWER LOBES. HEART TONES IRREGULAR. ABD SOFT, NONTENDER, BOWEL TONES ACTIVE. SKIN IS FRAGILE WITH A TEAR ON INNER LEFT ELBOW, COVER WITH GAUZE AND COBAN. SKIN TEAR ON LEFT FOREARM FROM IV DRESSING REMOVAL, COVERED WITH ALLEVYN GENTLE BORDER. LLE WOUND CLEANED, METAHONEY APPLIED AND COVERED WITH STERILE GAUZE AND COBAN. SCATTERED BRUISING NOTED. IV CDI, FLUSHED WELL. NUMBNESS AND TINGLING X4 EXTREMITIES, PULSE AND MOTOR INTACT. PT HAS DECREASED MOVEMENT IN SHOULDERS, CHRONIC. NC @ 3L. SCHEDULED MEDS PROVIDED. NO OTHER NEEDS. CALL LIGHT IN REACH.
--- NOTE | 2021-06-04 22:25 | NUR ---
PT USES URINAL AND IS REPOSITIONED. PT REPORTS SOB. RT NOTIFIED FOR TREATMENT. NO OTHER NEEDS. CALL LIGHT IN REACH.
--- NOTE | 2021-06-05 00:46 | NUR ---
PT CALLS TO USE BSC. 1PA FWW TO BSC AND BACK TO BED. SOB WITH ACTIVITY. NC @ 3L, SPO2 94%. PT POSITIONED TO FLOAT HIPS. NO OTHER NEEDS. CALL LIGHT IN REACH.
--- NOTE | 2021-06-05 02:50 | NUR ---
PT CALLS TO USE URINAL, PROVIDED. NC @ 3L. LLE DRESSING CLEANED AND CHANGED TO MEDIHONEY AND FOAM. ASSESSMENT COMPLETED. LUNGS CLEAR IN UPPER LUNGS AND DIM IN LOWER LOBES. SKIN UNCHANGED. CLEAR SODA PROVIDED. ORAL CARE PROVIDED TONGUE APPEARS TO HAVE DRIED AREAS. NO OTHER NEEDS. CALL LIGHT IN REACH.
--- NOTE | 2021-06-05 04:03 | NUR ---
PT RESTING IN BED. NC @ 3L. RR EVEN, UNLABORED. CALL LIGHT IN REACH.
--- NOTE | 2021-06-05 04:50 | NUR ---
VS, I&O AND DW COMPLETED. PT REPOSITIONED. NC @ 3L. NO OTHER NEEDS. CALL LIGHT IN REACH.
--- NOTE | 2021-06-05 07:30 | NUR ---
Shift report received from DADA Segura, pt resting in bed safely w/ call light in reach and eyes closed, RR even and unlabored on 3L via NC.
--- NOTE | 2021-06-05 10:00 | NUR ---
Pt repositioned higher in the bed, now sitting up safely w/ call light in reach. Morning assesment complete and scheduled meds given, diuretic held due to pt's low fluid intake, BP low this AM, provider notified. Pt denies any other needs at this time. at bedside
--- NOTE | 2021-06-05 12:00 | NUR ---
Pt finished working w/ PT, now sitting up in chair w/ call light in reach and at bedside. No needs at this time
--- NOTE | 2021-06-05 14:06 | NUR ---
Pt up to bathroom. VS decreased sats 88% on 3L, HR 40, RR 40, BP 81/54. Pt's O2 increased to 4L, provider notified, TORB for bedrest w/ BSC privileges. PT/OT discontinued. Pt and updated on POC. Pt now back in bed resting safely w/ call light in reach and at bedside
--- NOTE | 2021-06-05 15:00 | NUR ---
Pt is resting in bed safely w/ call light in reach and eyes closed RR even and unlabored on 4L, at bedside no needs at this time.
--- NOTE | 2021-06-05 16:00 | NUR ---
Pt resting in bed safely w/ call light in reach, watching TV, no needs at this time
--- NOTE | 2021-06-05 17:59 | NUR ---
Pt resting in bed safely w/ call light in reach. VSS, pt titrated from 4L back to his baseline 3L. Pt states he is feeling better. Dressing on LLE changed due to saturation. No further needs at this time, pt's has gone home for the evening will return in the AM for Hospice consult.
--- NOTE | 2021-06-05 19:00 | NUR ---
SHIFT REPORT RECEIVED FROM SCOOBY GARLAND. PT RESTING IN BED. NC @ 3L. NO NEEDS AT THIS TIME. CALL LIGHT IN REACH.
--- NOTE | 2021-06-05 19:14 | NUR ---
PATIENT WAS GOING TO GET A SHOWER OR A BED BATH TODAY BUT DO TO NOT FEELING WELL WE LET HIM REST.
--- NOTE | 2021-06-05 19:30 | NUR ---
ANSWERED CALL LIGHT. ASSISTED USING THE URINAL. PATIENT VOIDED 60ML. PATIENT REPOSITIONED. CALL LIGHT WITHIN REACH. RT WAS IN THE ROOM.
--- NOTE | 2021-06-05 20:59 | NUR ---
ASSESSMENT, VS AND I&O COMPLETED. GCS 15, A&O X4. NC @ 3L. SKIN TEARS TO LEFT ARM NOTED, COVERED. LLE DRESSING CDI. IV WNL, FLUSHED WELL. BUTTOCKS ALLEVYN NOTED, CDI. FEET EDEMA TRACE. LUNGS CLEAR IN ALL LOBES. HEART TONES IRREGULAR. ABD SOFT, NONTENDER, BOWEL TONES ACTIVE. PT REPOSITIONED. NUMBNESS AND TINGLING X4. WATER PROVIDED. SCHEDULED MEDS PROVIDED. PT REPORTS 4/10 GENERALIZED PAIN, PRN PAIN MED PROVIDED. NO OTHER NEEDS. CALL LIGHT IN REACH.
--- NOTE | 2021-06-05 23:47 | NUR ---
PT RESTING IN BED, EYES CLOSED. RR UNLABORED, EVEN. CALL LIGHT IN REACH.
--- NOTE | 2021-06-06 01:35 | NUR ---
PT RESTING IN BED. RR EVEN, UNLABORED. CALL LIGHT IN REACH.
--- NOTE | 2021-06-06 02:52 | NUR ---
PT HAS HAD LOW URINE OUTPUT THIS SHIFT OF 50ML AND 1 EPISODE OF A SCANT INCONTINENCE. BLADDER SCAN REVEALS 162ML. ATTEMPTED TO CALL MD TO NOTIFY OF LOW URINE OUTPUT, NO ANSWER. LEFT A MESSAGE ON PHONE TO CALL BACK FOR FURTHER INFORMATION.
--- NOTE | 2021-06-06 03:44 | NUR ---
PT CALLS FOR BLANKET, PROVIDED. ASSESSMENT COMPLETED. NC @ 3L. PT ENCOURAGED TO DRINK FLUIDS. NO OTHER NEEDS. CALL LIGHT IN REACH.
--- NOTE | 2021-06-06 04:01 | NUR ---
PT FRONT DESK WORKER LIGHT, NEEDS TO VOID. ASSISTED PT WITH URINAL. VOIDED 25 ML, PT STATES "I FEEL LIKE I NEED TO GO MORE BUT CAN'T" PRIMARY BRENDAE NOTIFED.
--- NOTE | 2021-06-06 05:04 | NUR ---
MD RETURNED CALL. INFORMED MD OF LOW I&O AND RESULTS OF BLADDER SCAN. NO ORDERS RECEIVED.
--- NOTE | 2021-06-06 05:05 | NUR ---
PT ATTEMPTED TO USE URINAL WITHOUT RESULTS. PT REPOSITIONED. NC @ 3L. CLEAR SODA PROVIDED. NO OTHER NEEDS. CALL LIGHT IN REACH.
--- NOTE | 2021-06-06 05:51 | NUR ---
PATIENT ASSISTED TO USE THE URINAL. PATIENT WAS ABLE TO VOID A SMALL AMOUNT. PATIENTS BED WEIGHT OBTAINED AND RECORDED. PATIENT REPOSITIONED IN BED. PATIENT DENIES ANY NEEDS. CALL LIGHT IN REACH.
--- NOTE | 2021-06-06 06:30 | NUR ---
VS AND I&O COMPLETED. PT REPOSITIONED. NC @ 3L. NO OTHER NEEDS. CALL LIGHT IN REACH.
--- NOTE | 2021-06-06 07:38 | NUR ---
Patient awake in bed watching tv, a&ox4. Patient reports he is comfortable at this time. Patient remains on 3L of oxygen per nc. Breakfast ordered. Personal supplies and call light within reach.
--- NOTE | 2021-06-06 09:34 | NUR ---
INTO PATIENT ROOM. PATIENT SLEEPING, KERWIN AT BEDSIDE. DISCUSSED REFERRAL TO HOSPICE SERVICES WITH PATIENTS . KERWIN STATES THAT THEY ARE AGREEABLE TO THIS AND WOULD LIKE TO USE [facility] THEY HAVE ALREADY USED THEIR HOME HEALTH SERVICES. KERWIN STATES SHE FEELS THAT SHE IS ABLE TO CARE FOR THE PATIENT AT HOME AND DOES NOT REQUEST FURTHER DME. THIS RN ADVISED KERWIN THAT REFERRALTO BE FAXED TO [facility]. DR. ARREDONDO UPDATED.
--- NOTE | 2021-06-06 10:56 | NUR ---
PATIENT REPOSITIONED IN BED, PILLOW UNDER LEFT SIDE.
[2021-06-06] MEDS ORDERED: MORPHINE S100 MG/5 M PO (11:09)
--- NOTE | 2021-06-06 11:23 | NUR ---
PER SUM[facility] AT [facility] HOSPICE SERVICES WILL NOT BE ABLE TO EVALUATE PATIENT UNTIL 06/[address] ARREDONDO UPDATED. WILL FAX REFERRAL TO [facility].
--- NOTE | 2021-06-06 11:28 | NUR ---
BP 86/54. Rn was notified and in the room. Patient is in bed with call light in reach.
--- NOTE | 2021-06-06 11:43 | NUR ---
FACESHEET, H&P, PT/OT EVALS AND DISCHARGE SUMMARY FAXED TO [facility].
--- NOTE | 2021-06-06 13:54 | NUR ---
PT ALERT, LAYING IN BED VISITING WITH HIS KERWIN. PT APPEARS TO BE WEAKER TODAY, SAID HE WASN'T FEELING WELL. DID NOT ENJOY AM MEAL, BUT PLEASANT ALWAYS. HAD PRAYER, WILL FOLLOW NEEDED
== END 2021-06-06 14:55 | disposition home or self-care (01) | DRG 291 ==
LOC: ED 07:58 → MS 08:00
PROVIDERS: ADMIT Student in an Organized Health Care Education/Training Program; ATTEND Student in an Organized Health Care Education/Training Program
DX: I13.0 Hypertensive heart and chronic kidney disease with heart failure and stage 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, or unspecified chronic kidney disease (principal); I50.33 Acute on chronic diastolic (congestive) heart failure; J96.21 Acute and chronic respiratory failure with hypoxia; I48.21 Permanent atrial fibrillation; N17.9 Acute kidney failure, unspecified; Z66 Do not resuscitate; Z51.5 Encounter for palliative care; Z20.822 Contact with and (suspected) exposure to COVID-19; E11.22 Type 2 diabetes mellitus with diabetic chronic kidney disease; E79.0 Hyperuricemia without signs of inflammatory arthritis and tophaceous disease; Z88.8 Allergy status to other drugs, medicaments and biological substances; Z88.1 Allergy status to other antibiotic agents; J44.9 Chronic obstructive pulmonary disease, unspecified; I25.10 Atherosclerotic heart disease of native coronary artery without angina pectoris; E78.5 Hyperlipidemia, unspecified; E11.51 Type 2 diabetes mellitus with diabetic peripheral angiopathy without gangrene; D64.9 Anemia, unspecified; Z86.718 Personal history of other venous thrombosis and embolism; Z79.899 Other long term (current) drug therapy; Z95.5 Presence of coronary angioplasty implant and graft; Z98.890 Other specified postprocedural states; N40.0 Benign prostatic hyperplasia without lower urinary tract symptoms
CPT/HCPCS: 71045; 71046; 80048; 80053; 80162; 80500; 83605; 83735; 83880; 84300; 84484; 85025; 87040; 93005; 93010; 94640; 94760; 96374; 97110; 97162; 97166; 97530; 97535; 99285-25; C9803; G0378; J1650; J1940; J7121; U0003